=== PATIENT | female | born 1980 | race Caucasian/White ===

== ENCOUNTER 2024-05-28 19:13 | Emergency (ER) | payer MEDICAID, SELFPAY ==
[2024-05-28 19:15] VITALS: BP 117/90; PULSE 85; RESP 18; TEMP 36.6; O2SAT 99; BMI 53.1
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
[2024-05-28] MEDS: Ketorolac 15 MG/ML Vial IV (21:33)
[2024-05-28] MEDS: DiphenhydrAMINE 50 MG/ML Syringe 25 MG IV (21:33)
[2024-05-28] MEDS: Metoclopramide 10 MG/2 ML Vial 5 MG IV (21:34)
[2024-05-28 22:01] VITALS: BP 133/82; PULSE 71; RESP 16; TEMP 36.6; O2SAT 99
== END 2024-05-28 22:05 | disposition home or self-care (01) ==
PROVIDERS: Emergency Provider Surgery; Visit Provider Surgery
DX: R51.9 Headache, unspecified (principal); H10.11 Acute atopic conjunctivitis, right eye
CPT/HCPCS: 96374; 96375; 99282; A4216

== ENCOUNTER → 2024-06-04 | Outpatient (CLI) | payer MEDICAID, SELFPAY ==
--- NOTE | 2024-06-04 12:28 | ART_ITS ---
Reason For Study: Claudication Procedure A bilateral lower extremity continuous wave Doppler with analog waveform analysis and ankle brachial indexes. Left Segmental Pressures Left brachial= 126mmHg. Left posterior tibial artery = 154mmHg. Left dorsalis pedis artery = 149mmHg. Left digit = 112 mmHg. The left dorsalis pedis waveforms are triphasic. The left posterior tibial artery waveforms are triphasic. Right Segmental Pressures Right brachial= 130mmHg. Right posterior tibial artery = 159mmHg. Right dorsalis pedis artery = 154mmHg. Right digit = 140 mmHg. The right dorsalis pedis waveforms are triphasic. The right posterior tibial artery waveforms are triphasic. Indices The right ankle brachial index by the dorsalis pedis is 1.18. The right ankle brachial index by the posterior tibial artery is 1.22. The right digital-brachial index is 1.08. The left ankle brachial index by the dorsalis pedis is 1.15. The left ankle brachial index by the posterior tibial artery is 1.18. The left digital-brachial index is 0.86. VL/Ankle Brachial Index Interpretation Summary Triphasic Doppler waveforms are noted at ankle level bilaterally. Pulse-volume recordings appear satisfactory at ankle and digital level bilaterally. Resting ankle-brachial ind ices are normal bilaterally. Digital-brachial indices are normal bilaterally. There is no evidence of significant arterial occlusive disease in the lower ext remities bilaterally. Ordering Physician: CHELLE MARINO Performed By: Yesika Garcia RVT
== END | disposition home or self-care (01) ==
LOC: CVS 12:21
DX: I73.9 Peripheral vascular disease, unspecified (principal); R60.0 Localized edema
CPT/HCPCS: 93922

== ENCOUNTER 2024-07-04 13:05 | Emergency (ER) | payer MEDICAID, SELFPAY ==
[2024-07-04 13:06] VITALS: BP 132/79; PULSE 68; RESP 16; TEMP 36.5; O2SAT 97; BMI 53.1
--- NOTE | 2024-07-04 14:43 | EX.ED.DYSGE1 ---
HPI History of Present Illness Chief Complaint: Dizziness Detail of Chief Complaint: Dizziness, which patient defines as lightheadedness, fatigue and HPI narrat Informant: patient Onset/Context/Timing Onset: Days Context: Gradual Onset Timing: Continuous and Waxes and wanes Quality: Detailed narrative portion of the EMR Location: Generalized Current Severity: Mild Maximum Severity: Moderate Worsened by: Nothing specific Relieved by: Nothing Associated Symptoms Associated Symptoms: Fatigue, lack of energy Narrative Narrative: patient is a 44-year-old woman. She is presently residing at the [facility]. [place]. She states when asked that it is a long story and did not want to elaborate why she is now in [facility]. She states she is compliant with her medications which include levothyroxine and metformin. She is diabetic. Has not checked her blood sugar recently. She denies fever, chills night sweats. She denies headache. She denies double vision loss of vision question mild blurred vision. The blurred vision is by ocular. She denies ringing or ears decreased hearing. Denies trouble with speech or swallowing. She denies neck pain or neck stiffness. She denies chest pain, shortness of breath, orthopnea or PND. She denies abdominal pain, nausea, vomiting or diarrhea. She denies hematemesis, melena hematochezia. She denies dysuria, frequency, urgency or hematuria. She has no signs or symptoms of . Last menses 2 weeks ago. With respect to the dizziness she states it started after she was prescribed prednisone for her arthritis/knee pain. She did not define dizziness as spinning sensation or problems with coordination or balance. She states specifically it was lightheadedness. Prior similar symptoms: No Recent Illness/Hospitalization: No PFSH PFS Medical History Arthritis Scoliosis Hypercholesterolemia Hypothyroidism Diabetes Migraine Home Medications ?Medication ?Instructions ?Recorded ?Last Taken ?Type cholecalciferol (vitamin D3) 25 25 mcg PO QDAY 07/01/24 Unknown History mcg (1,000 unit) capsule levothyroxine 100 mcg tablet 100 mcg PO QDAY 07/01/24 Unknown History metformin 500 mg tablet 500 mg PO QDAY 07/01/24 Unknown History Allergy/AdvReac Type Severity Reaction Status Date / Time acetaminophen (From Vicodin) Allergy Mild Nausea Verified 07/04/24 13:06 hydrocodone (From Vicodin) Allergy Mild Nausea Verified 07/04/24 13:06 Sulfa (Sulfonamide Allergy Mild Rash Verified 07/04/24 13:06 Antibiotics) Family History Mother Scoliosis Other Cancer Heart disease Hypertension Surgical History Hx of cholecystectomy Social History housing: homeless Smoking Status: Never smoker alcohol intake: never what type of physical activity do you participate in: walking do you feel safe at home: No (sometimes) ROS ROS ED Constitutional Constitutional ED: Denies chills, fever(s), subjective, sweats or weight loss Eyes Eyes: Reports blurry vision bilateral; Denies change in vision or diplopia ENT ENT ED: Denies ear pain, rhinorrhea or sore throat Cardiovascular Cardiovascular: Denies chest pain, orthopnea, palpitations or paroxysmal nocturnal dyspnea Respiratory/Chest Respiratory/Chest: Denies cough, dyspnea, dyspnea on exertion, orthopnea or paroxysmal nocturnal dyspnea Gastrointestinal Gastrointestinal: Denies abdominal pain, diarrhea, melena, nausea or vomiting Genitourinary Genitourinary ED: Denies dysuria, hematuria or urinary frequency Musculoskeletal Musculoskeletal: Denies arthralgias, back pain, myalgias or neck pain Integumentary Denies abscess, Abrasions or rash Neurologic Neurologic: Denies headache(s), paresthesias or weakness Psychiatric Psychiatric: Denies anxiety or depression Hematologic/Lymphatic Hematologic/Lymphatic: Reports systems reviewed and no addt'l complaints, except as documented Allergic/Immunologic Allergic/Immunologic ED: Denies mouth swelling or tongue swelling EXAM Physical Exam Const Vital Signs: 07/04/24 13:06 07/04/24 15:05 07/04/24 15:05 Temperature 97.7 F L Temperature Source Oral Pulse Rate 68 65 Pulse Rate [Lying] 65 Pulse Rate [Sitting (for 1 minute prior to obtaining)] 70 Pulse Rate [Standing (for 1 minute prior to obtaining)] 79 Respiratory Rate 16 16 Blood Pressure 132/79 H 119/70 Blood Pressure [Lying] 119/70 Blood Pressure [Sitting (for 1 minute prior to obtaining)] 134/89 H Blood Pressure [Standing (for 1 minute prior to obtaining)] 149/99 H Blood Pressure Mean 96 86 Blood Pressure Mean [Lying] 86 Blood Pressure Mean [Sitting (for 1 minute prior to obtaining)] 104 Blood Pressure Mean [Standing (for 1 minute prior to obtaining)] 115 Pulse Ox 97 98 Oxygen Delivery Method Room Air Room Air Positive well nourished and well developed Constitutional Narrative: BMI is 53.1. General Appearance ED: well developed and NAD; Negative for cyanotic, diaphoretic or pallor HEENT Reports moist mucous membranes HEENT Narrative: Head is atraumatic normocephalic. Ears normal. External auditory canal normal. TMs normal. Nares patent without discharge. Posterior pharynx is normal. Eyes PERRL and EOMs intact bilaterally General Eye ED: Negative for pale conjunctiva or scleral icterus Neck no lymphadenopathy, supple and no JVD Chest Wall inspection of chest normal and palpation of chest normal Resp normal respiratory effort and clear to auscultation bilaterally Cardio regular rate, regular rhythm, S1 normal heart sound, S2 normal heart sound and no murmurs GI normal to inspection, nondistended, normoactive bowel sounds, non-tender, non-distended and no masses; Negative for hepatosplenomegaly Auscultation: normoactive bowel sounds Palpation: soft Back/Spine no CVA tenderness Extremity Negative for normal to inspection Extremity Narrative: There is no clubbing or cyanosis. General Extremety ED: Yes edema; Negative for tenderness General Extremity: edema Neuro oriented x3, CN's II-XII intact bilaterally and no sensory deficits noted Neuro Narrative: There is no clonus. Reflexes are symmetric. Sensorium / Orientation: alert Motor Exam: strength 5/5 throughout Psych Psych Narrative: Affect is flat. Mood is depressed. Skin no rashes or lesions noted, no wounds and skin turgor normal General Skin Exam: Negative for jaundice or pallor MDM MDM MDM Narrative Medical decision making narrative: Patient with vague symptoms. Since she is diabetic we will obtain BMP to assess glucose, CO2 anion gap and renal function. CBC was obtained to assess white count differential and H&H. Since she is hypothyroidism complaining of fatigue TSH was obtained as a screening test. Patient was placed on the monitor. Will order orthostatic symptoms since she complains of lightheadedness. Prior records are limited. Since she is not from this area. History & Record Review Additional record(s) reviewed:: Prior ED visit (Patient was seen for nonspecified headache May 28.) Lab Data Attestation: I reviewed the patient's lab results. Lab results narrative: CBC is unremarkable. Basic metabolic panel was a glucose of 142 with normal CO2 anion gap. Nitrites are normal. Renal function is normal. TSH is lower end of normal. Patient was informed the cause of her symptoms is unknown. Her orthostatic vital signs were negative. Labs: Laboratory Results - last 24 hr 07/04/24 14:25 WBC 7.6 RBC 4.61 Hgb 13.8 Hct 42.5 MCV 92.2 MCH 29.9 MCHC 32.5 RDW Std Deviation 51.3 H RDW Coeff of Demetrio 15.2 H Plt Count 283 MPV 10.0 Immature Gran % (Auto) 0.500 Neut % (Auto) 85.2 H Lymph % (Auto) 11.4 L [place] % (Auto) 1.7 Eos % (Auto) 0.9 Baso % (Auto) 0.3 Absolute Neuts (auto) 6.4 Absolute Lymphs (auto) 0.86 Nucleated RBC % 0 Sodium 138 Potassium 4.2 Chloride 104 Carbon Dioxide 28.0 Anion Gap 6 BUN 12 Creatinine 0.95 Estim Creat Clear Calc 82.99 Est GFR (MDRD) Af Amer 82 Est GFR (MDRD) Non-Af 68 BUN/Creatinine Ratio 12.6 Glucose 142 H Calcium 9.8 TSH 1.280 Treatment and Re-Evaluation :: Workup is negative. Her symptoms may be due to the fact that she is depressed. At this point patient be discharged to home with appropriate home-going instructions. In my opinion no further testing is needed. Discharge Plan Triage Chief Complaint: Dizziness ED Provider: Richy Contreras Dx/Rx/DC Orders Clinical Impression: Orthostatic lightheadedness, Hypothyroidism, Hypercholesterolemia, Controlled type 2 diabetes mellitus with hyperglycemia, Fatigue, Body mass index (BMI) greater than 50 Instructions: ED Weakness (Uncertain Cause) Prescriptions: No Action metformin 500 mg tablet 500 mg PO QDAY levothyroxine 100 mcg tablet 100 mcg PO QDAY cholecalciferol (vitamin D3) 25 mcg (1,000 unit) capsule 25 mcg PO QDAY Primary Care Provider: Care Physician,No Primary Referrals: Care Physician,No Primary [Primary Care Provider] - Activity Restrictions/Additional Instructions: The cause of your symptoms is unknown. Recommend contacting the [facility] in clinic for follow-up Print Language: Azeri Disposition Disposition: Home, Self Care
[2024-07-04 14:46] LABS: Absolute Lymphocyte Count 0.86 X10^3/uL (0.83-4.51); Absolute Neutrophil Count 6.4 X10^3/uL (2.0-7.7); Basophil# 0.02 X10^3/uL; Basophil% 0.3 % (0-1); Eosinophil# 0.07 X10^3/uL; Eosinophils% 0.9 % (0-5); Hematocrit 42.5 % (37-47); Hemoglobin 13.8 g/dL (12.0-15.0); Lymphocyte # 0.86 X10^3/ul (0.83-4.51); Lymphocyte % 11.4 % (19-41); Mean Corp Hgb Conc 32.5 g/dL (32-36); Mean Corpuscular Hgb 29.9 pg (27.0-32.0); Mean Corpuscular Volume 92.2 fL (81-99); Monocyte# 0.13 X10^3/uL; Monocyte% 1.7 % (0-10); NRBC Flagged by Analyzer 0 % (0-5); Neutrophil # 6.44 X10^3/uL (2.7-7.7); Neutrophil % 85.2 % (47-70); Platelet Count 283 K/mm3 (150-450); RBC Distribution Width CV 15.2 % (11.6-14.6); RBC Distribution Width SD 51.3 fl (35.1-43.9); Red Blood Count 4.61 M/mm3 (4.2-5.4); White Blood Count 7.6 K/mm3 (4.4-11.0)
[2024-07-04 15:05] VITALS: BP 119/70; BP 134/89; BP 149/99; PULSE 65; PULSE 70; PULSE 79; RESP 16; O2SAT 98
[2024-07-04 15:14] LABS: Anion Gap 6 (5-15); BUN 12 mg/dL (7-18); BUN/Creat Ratio 12.6 RATIO (10-20); Calcium,Total 9.8 mg/dL (8.5-10.1); Chloride 104 mmol/L (98-107); Creatinine, Serum 0.95 mg/dL (0.55-1.02); EST Glomerular Filtration Rate 68 mL/min (>60); Est Glom Filt Rate - Afr Amer 82 mL/min (>60); Estimated Creatinine Clearance 82.99 ml/min; Glucose 142 mg/dL (74-106); Potassium 4.2 mmol/L (3.5-5.1); Sodium Level 138 mmol/L (136-145)
[2024-07-04 16:52] VITALS: BP 129/57; PULSE 84; RESP 15; TEMP 36.2; O2SAT 98
== END 2024-07-04 16:52 | disposition home or self-care (01) ==
PROVIDERS: Emergency Provider Emergency Medicine; Visit Provider Emergency Medicine
DX: R42 Dizziness and giddiness (principal); E11.65 Type 2 diabetes mellitus with hyperglycemia; E78.00 Pure hypercholesterolemia, unspecified; Z79.890 Hormone replacement therapy; E03.9 Hypothyroidism, unspecified; R53.83 Other fatigue; Z79.84 Long term (current) use of oral hypoglycemic drugs; Z79.899 Other long term (current) drug therapy; Z90.49 Acquired absence of other specified parts of digestive tract
CPT/HCPCS: 80048; 84443; 85025; 99285; A4216

== ENCOUNTER 2024-07-12 00:16 | Emergency (ER) | payer MEDICAID, SELFPAY ==
[2024-07-12] VITALS (12 sets, daily range): BP systolic 109–139; BP diastolic 69–84; PULSE 58–77; RESP 11–17; TEMP 36.7; O2SAT 96–100; BMI 53.7
--- NOTE | 2024-07-12 00:29 | EKG12_ITS ---
Test Reason : CP Blood Pressure : */* mmHG Vent. Rate : 65 BPM Atrial Rate : 65 BPM P-R Int : 154 ms QRS Dur : 92 ms QT Int : 404 ms P-R-T Axes : 38 10 24 degrees QTcB Int : 420 ms Normal sinus rhythm Cannot rule out Anterior infarct , age undetermined Abnormal ECG Confirmed by ALIX WEEMS ([id number]), photo editor QUINTON MERINO ([id number]) on 07/12/2024 11:49:56 AM Referred By: MADI Confirmed By: ALIX WEEMS
[2024-07-12] MEDS: Aspirin 81 MG TAB.CHEW 324 MG PO (00:39)
--- NOTE | 2024-07-12 00:39 | EDS_ITS ---
HPI History of Present Illness Chief Complaint: Chest Pain Narrative Narrative: Chief complaint and HPI: Chest pain. 44-year-old female with history of DM, hypothyroidism, HLD presents for evaluation of chest pain. Patient states that she is currently residing at the [facility]. She states after eating supper today her acid reflux started to act up in which she took medication for this. She states when she went to lay down to go to sleep she developed chest pain. She describes it as sharp as well as tight. She states that it was intermittent in nature but given that it did not improve she went to the office and was concerned it was her acid reflux. They called EMS patient states she is still having some mild chest tightness. She states that her pain has improved. She was not given anything by EMS. Patient denies tobacco abuse. She denies any fever, chills, URI symptoms, cough, shortness of breath, abdominal pain, nausea, vomiting, diarrhea. Patient states that she sort of feels similar to her acid reflux. Review of systems: See HPI Medications: As listed on the chart Allergies: As listed on the chart PFSH: Per chart Vital signs: As listed on the chart. Reviewed. Physical exam: Gen: A&O x3, NAD Head: Normocephalic, atraumatic Eyes: No sclera icterus, conjunctiva clear ENT: Moist mucous membranes Neck: Trachea midline, No JVD CV: RRR, no murmurs, no peripheral edema Resp: Lungs CTA BL, no w/r/c GI: Abd soft, non-distended, non-tender, no r/r/g Musc: Full ROM, no deformity Skin: Warm, dry Neuro: Alert, oriented, grossly intact, sensation intact Psych: Cooperative, appropriate mood and affect [facility] Medical History Arthritis Scoliosis Hypercholesterolemia Hypothyroidism Diabetes Migraine Home Medications ?Medication ?Instructions ?Recorded ?Last Taken ?Type levothyroxine 100 mcg tablet 100 mcg PO QDAY 07/01/24 Unknown History metformin 500 mg tablet 500 mg PO QDAY 07/01/24 Unknown History atorvastatin 40 mg tablet 40 mg PO DAILY 07/12/24 Unknown History omega 6-ldg-sry-fish oil 100 2 cap PO DAILY 07/12/24 Unknown History mg-160 mg-1,000 mg capsule (Fish Oil) Allergy/AdvReac Type Severity Reaction Status Date / Time acetaminophen (From Vicodin) Allergy Mild Nausea Verified 07/12/24 00:17 hydrocodone (From Vicodin) Allergy Mild Nausea Verified 07/12/24 00:17 Sulfa (Sulfonamide Allergy Mild Rash Verified 07/12/24 00:17 Antibiotics) Family History Mother Scoliosis Other Cancer Heart disease Hypertension Surgical History Hx of cholecystectomy Social History housing: homeless Smoking Status: Never smoker alcohol intake: never what type of physical activity do you participate in: walking do you feel safe at home: No (sometimes) EXAM Physical Exam Const Vital Signs: 07/12/24 00:17 07/12/24 00:20 07/12/24 00:30 Temperature 98.1 F Temperature Source Oral Pulse Rate 77 74 Respiratory Rate 17 11 L Respiratory Effort Normal Blood Pressure 139/84 H Blood Pressure Mean 102 Pulse Ox 98 Oxygen Delivery Method Room Air 07/12/24 00:35 07/12/24 00:45 07/12/24 01:17 Temperature Temperature Source Pulse Rate 73 66 Respiratory Rate 14 15 Respiratory Effort Blood Pressure 122/70 H Blood Pressure Mean 87 Pulse Ox 98 Oxygen Delivery Method Room Air Room Air 07/12/24 01:49 07/12/24 01:50 07/12/24 02:00 Temperature Temperature Source Pulse Rate 69 58 L Respiratory Rate 16 14 Respiratory Effort Blood Pressure 122/70 H 119/78 Blood Pressure Mean 87 90 Pulse Ox 99 100 96 Oxygen Delivery Method 07/12/24 02:15 07/12/24 02:30 07/12/24 02:45 Temperature Temperature Source Pulse Rate 60 63 65 Respiratory Rate 15 15 15 Respiratory Effort Blood Pressure 113/76 109/69 128/76 H Blood Pressure Mean 88 82 92 Pulse Ox 98 98 98 Oxygen Delivery Method 07/12/24 03:00 07/12/24 03:21 Temperature 98.0 F Temperature Source Pulse Rate 64 68 Respiratory Rate 16 17 Respiratory Effort Blood Pressure 129/78 H 127/79 H Blood Pressure Mean 92 95 Pulse Ox 98 98 Oxygen Delivery Method MDM MDM MDM Narrative Medical decision making narrative: 44-year-old female with history of DM, hypothyroidism, HLD presents for evalu ation of chest pain. Differential diagnosis includes but is not limited to arrhythmia, electrolyte abnormality, pleurisy, musculoskeletal pain, ACS. Less likely PE. Cardiac workup ordered. Aspirin given for pain. EKG and chest x- ray reviewed see below. CBC without leukocytosis or anemia. D-dimer unremarkable. BMP unremarkable. Troponin unremarkable x 2. Heart score is a 2 which places the patient at low risk. On reevaluation, patient is no longer having chest pain. Patient is stable to discharge home. Return precautions explained. Follow-up with PCP. EKG: Interpreted by me/EM physician: EKG shows normal sinus rhythm without acute ischemic changes. Heart rate 65. Diagnostic: Interpreted by me/EM physician: Chest x-ray without pneumonia, effusion, cardiomegaly, pneumothorax Impression: 1. Chest pain Lab Data Labs: Laboratory Results - last 24 hr 07/12/24 07/12/24 00:23 02:45 WBC 7.4 RBC 4.29 Hgb 12.7 Hct 39.9 MCV 93.0 MCH 29.6 MCHC 31.8 L RDW Std Deviation 51.5 H RDW Coeff of Demetrio 15.1 H Plt Count 330 MPV 9.8 Immature Gran % (Auto) 0.800 Neut % (Auto) 61.5 Lymph % (Auto) 24.4 [place] % (Auto) 8.5 Eos % (Auto) 4.5 Baso % (Auto) 0.3 Absolute Neuts (auto) 4.5 Absolute Lymphs (auto) 1.80 Nucleated RBC % 0 D-Dimer Quant (PE/DVT) 0.31 Sodium 140 Potassium 3.8 Chloride 105 Carbon Dioxide 29.0 Anion Gap 6 BUN 15 Creatinine 0.86 Estim Creat Clear Calc 92.36 Est GFR (MDRD) Af Amer 92 Est GFR (MDRD) Non-Af 76 BUN/Creatinine Ratio 17.4 Glucose 113 H Calcium 9.7 Troponin I High Sens 3 < 3 L Radiography Diagnostic Testing: Clinical Impression(s) from Imaging Studies Chest X-Ray 07/12/24 01:00 IMPRESSION: No radiographic evidence of acute cardiopulmonary disease. Electronically Signed: Butch Hdz MD at 1:46 EST , Discharge Plan Triage Chief Complaint: Chest Pain ED Provider: Héctor Danielle Dx/Rx/DC Orders Clinical Impression: Chest pain Instructions: Chest Pain [facility] Prescriptions: No Action metformin 500 mg tablet 500 mg PO QDAY levothyroxine 100 mcg tablet 100 mcg PO QDAY atorvastatin 40 mg tablet 40 mg PO DAILY Fish Oil 100-160-1,000 mg capsule 2 cap PO DAILY Primary Care Provider: Care Physician,No Primary Referrals: Shashi Baltazar MD [Med Staff - Active Staff] - 3-5 Days Care Physician,No Primary [Primary Care Provider] - Activity Restrictions/Additional Instructions: Return back to the ED if symptoms change or worsen. Follow-up with the physician provided. Print Language: Albanian Disposition Disposition: Home, Self Care Discharge Date/Time: 07/12/24 03:21
[2024-07-12 00:40] LABS: Absolute Neutrophil Count 4.5 X10^3/uL (2.0-7.7); Basophil# 0.02 X10^3/uL; Basophil% 0.3 % (0-1); Eosinophil# 0.33 X10^3/uL; Eosinophils% 4.5 % (0-5); Hematocrit 39.9 % (37-47); Hemoglobin 12.7 g/dL (12.0-15.0); Lymphocyte % 24.4 % (19-41); Mean Corp Hgb Conc 31.8 g/dL (32-36); Mean Corpuscular Hgb 29.6 pg (27.0-32.0); Mean Platelet Vol. 9.8 fl (6.2-12.0); Monocyte# 0.63 X10^3/uL; Monocyte% 8.5 % (0-10); NRBC Flagged by Analyzer 0 % (0-5); Neutrophil # 4.54 X10^3/uL (2.7-7.7); Neutrophil % 61.5 % (47-70); Platelet Count 330 K/mm3 (150-450); RBC Distribution Width CV 15.1 % (11.6-14.6); RBC Distribution Width SD 51.5 fl (35.1-43.9); Red Blood Count 4.29 M/mm3 (4.2-5.4); White Blood Count 7.4 K/mm3 (4.4-11.0)
[2024-07-12] MEDS: Famotidine 200 MG/20 ML MDV 20 MG in 0.9% Normal Saline (Pres. free 8 ML 300 MG IV (00:52)
[2024-07-12 00:53] LABS: D-Dimer Quantitative (DVT/PE) 0.31 FEU/ug/m (0.27-0.49)
[2024-07-12 00:58] LABS: Anion Gap 6 (5-15); BUN 15 mg/dL (7-18); BUN/Creat Ratio 17.4 RATIO (10-20); Calcium,Total 9.7 mg/dL (8.5-10.1); Chloride 105 mmol/L (98-107); Creatinine, Serum 0.86 mg/dL (0.55-1.02); EST Glomerular Filtration Rate 76 mL/min (>60); Est Glom Filt Rate - Afr Amer 92 mL/min (>60); Estimated Creatinine Clearance 92.36 ml/min; Glucose 113 mg/dL (74-106); Potassium 3.8 mmol/L (3.5-5.1); Sodium Level 140 mmol/L (136-145); Troponin-I HS (w/2H Reflex) 3 pg/mL (3.0-54.0)
--- NOTE | 2024-07-12 01:00 | RAD_ITS ---
EXAM: XR CHEST, 2 VIEWS CLINICAL INDICATION: chest pain TECHNIQUE: Frontal and lateral views of the chest. COMPARISON: No relevant prior studies available. FINDINGS: LUNGS AND PLEURAL SPACES: Unremarkable. No consolidation or edema. No pneumothorax. No effusion. HEART: Unremarkable. Cardiac silhouette not enlarged. MEDIASTINUM: Central airways and mediastinal contour are unremarkable. BONES/JOINTS: Unremarkable. No acute fracture. SOFT TISSUES: Unremarkable. RAD/Chest PA and Lateral IMPRESSION: No radiographic evidence of acute cardiopulmonary disease. Electronically Signed: Butch Hdz MD at 1:46 EST ,
[2024-07-12 02:34] LABS: Reflex Troponin-HS? (from REC) Y
[2024-07-12 03:06] LABS: Troponin-I HS < 3 pg/mL (3.0-54.0)
== END 2024-07-12 03:21 | disposition home or self-care (01) ==
PROVIDERS: Emergency Provider Surgery; Visit Provider Surgery
DX: R07.9 Chest pain, unspecified (principal); E11.9 Type 2 diabetes mellitus without complications; K21.9 Gastro-esophageal reflux disease without esophagitis; E78.00 Pure hypercholesterolemia, unspecified; E03.9 Hypothyroidism, unspecified; Z90.49 Acquired absence of other specified parts of digestive tract
CPT/HCPCS: 71046; 80048; 84484; 85025; 85379; 93005; 96374; 99285; A4216; J3490

== ENCOUNTER 2024-12-12 10:03 | Emergency (ER) | payer MEDICAID, SELFPAY ==
[2024-12-12 10:04] VITALS: BP 110/78; PULSE 76; RESP 18; TEMP 36.6; O2SAT 99; BMI 54.1
--- NOTE | 2024-12-12 10:14 | EX.ED.DYSGE1 ---
HPI History of Present Illness Chief Complaint: Back Narrative Narrative: Patient is a 44-year-old female with past medical history of scoliosis, hypercholesteremia, hypothyroidism, diabetes, migraines, chronic back pain who presented to the emerged part with a chief complaint of back pain. Patient states that she is in pain management and went to physical therapy few days ago and notes that during her exercises her back started hurting her more. She states that she feels like the exercises exacerbate her pain. States that she is on some medications for her back pain but cannot specifically tell me what she is taking for this. Patient denies any new injuries or trauma. Patient denies any history of IV drug use, smoking or alcohol use. Patient states that she has been urinating more frequently with some pain with urination and notes that she is having normal bowel movements. Patient states that her back pain is on the right side and radiates down the back of her leg into her foot. [facility] Medical History Arthritis Scoliosis Hypercholesterolemia Hypothyroidism Diabetes Migraine Home Medications ?Medication ?Instructions ?Recorded ?Last Taken ?Type levothyroxine 100 mcg tablet 100 mcg PO QDAY 07/01/24 Unknown History metformin 500 mg tablet 500 mg PO QDAY 07/01/24 Unknown History atorvastatin 40 mg tablet 40 mg PO DAILY 07/12/24 Unknown History omega 0-nqx-blu-fish oil 100 2 cap PO DAILY 07/12/24 Unknown History mg-160 mg-1,000 mg capsule (Fish Oil) cephalexin 500 mg capsule 500 mg PO BID 5 days #10 caps 12/12/24 Unknown Rx cyclobenzaprine 5 mg tablet 5 mg PO TID PRN muscle spasm #9 12/12/24 Unknown Rx tabs ondansetron 4 mg disintegrating 4 mg PO Q6H PRN nausea and 12/12/24 Unknown Rx tablet vomiting #20 tabs oxycodone-acetaminophen 5 mg-325 1 tab PO Q6H PRN pain 2 days #8 12/12/24 Unknown Rx mg tablet (Endocet) tabs prednisone 5 mg tablets in a dose See Rx Instructions PO .COMPLEX 12/12/24 Unknown Rx pack #21 tabs Allergy/AdvReac Type Severity Reaction Status Date / Time acetaminophen (From Vicodin) Allergy Mild Nausea Verified 12/12/24 10:06 hydrocodone (From Vicodin) Allergy Mild Nausea Verified 12/12/24 10:06 Sulfa (Sulfonamide Allergy Mild Rash Verified 12/12/24 10:06 Antibiotics) Family History Mother Scoliosis Other Cancer Heart disease Hypertension Surgical History Hx of cholecystectomy Social History housing: homeless Smoking Status: Never smoker alcohol intake: never what type of physical activity do you participate in: walking do you feel safe at home: No (sometimes) ROS ROS ED ROS Narrative Constitutional: Denies fevers, chills, headaches Cardiovascular: Denies chest pain Respiratory: Denies shortness of breath Abdomen: Denies abdominal pain nausea, vomiting, diarrhea : Complains of urinary symptoms as noted above denies any hematuria Neurological: Denies numbness, weakness, tingling Musculoskeletal: Complains of back pain as noted above Skin: Denies any rashes or lesions EXAM Physical Exam Narrative Exam Narrative: General: Patient was lying in bed rest comfortably did not appear to be in acute distress Head: Atraumatic, normocephalic Eyes: PERRL bilaterally, EOMI bilaterally, no conjunctival injection noted Neck: Soft, supple, trachea midline Cardiovascular: Regular rate and rhythm Abdomen: Soft, nondistended Extremities: +4/5 strength noted in the bilateral upper and lower extremities, no pedal edema on exam Neurological: Patient following commands knew that she was at [facility] year is 2024 no saddle anesthesia noted Skin: Warm, dry, intact no rashes lesions noted Const Vital Signs: 12/12/24 10:04 Temperature 97.9 F Temperature Source Oral Pulse Rate 76 Respiratory Rate 18 Blood Pressure 110/78 Blood Pressure Mean 88 Pulse Ox 99 Oxygen Delivery Method Room Air MDM MDM MDM Narrative Medical decision making narrative: Patient is a 44-year-old female who presented to the emergency department chief complaint of flare of her chronic back pain. On the differential diagnose includes but not limited to herniated disc, musculoskeletal strain, flare of her chronic back pain, UTI, pyelonephritis. Once workup is obtained and reviewed she will be reevaluated. Patient be given Toradol, Valium, prednisone. Reevaluation patient she is still having pain therefore she was given [place] and Zofran. Patient's urinalysis reviewed and showed 100 leukocyte esterase 5-10 white blood cells with no bacteria seen however she is having urinary frequency with symptoms we will treat her with Keflex and this was sent for culture for her to follow-up on as well. Patient ambulated here in the emergency department to the bathroom by herself several times. On reevaluation the patient she is feeling better now and would like to go home. She was given prescription for cyclobenzaprine, Endocet, Zofran and prednisone. She is advised to rotate Tylenol and I Profen [id number] as well and use the narcotic for severe pain. She is advised not operating thing in the influence of the narcotic. She is advised to follow-up with her primary care physician in the outpatient setting as well and return with worsening symptoms or concerns. She is agreeable to plan all course concerns answered she was discharged home in stable condition. Lab Data Labs: Laboratory Results - last 24 hr 12/12/24 11:11 Urine Color Yellow Urine Clarity Clear Urine pH 8.0 Ur Specific [place] 1.010 Urine Protein Negative Urine Glucose (UA) Normal Urine Ketones Negative Urine Occult Blood Negative Urine Nitrite Negative Urine Bilirubin Negative Urine Urobilinogen Normal Ur Leukocyte Esterase 100 H Urine RBC 0 SEEN Urine WBC 5-10 SEEN Ur Squamous Epith Cells 5-10 SEEN Urine Bacteria 0 SEEN Urine Mucus 0 SEEN Discharge Plan Triage Chief Complaint: Back ED Provider: Tha Causey Dx/Rx/DC Orders Clinical Impression: Back pain Prescriptions: New cyclobenzaprine 5 mg tablet 5 mg PO TID PRN (Reason: muscle spasm) Qty: 9 0RF ondansetron 4 mg tablet,disintegrating 4 mg PO Q6H PRN (Reason: nausea and vomiting) Qty: 20 0RF oxycodone-acetaminophen [Endocet] 5-325 mg tablet 1 tab PO Q6H PRN (Reason: pain) 2 Days Qty: 8 0RF prednisone 5 mg tablets,dose pack See Rx Instructions .ROUTE .COMPLEX Qty: 21 0RF Rx Instructions: orally per package directions cephalexin 500 mg capsule 500 mg PO BID 5 Days Qty: 10 0RF No Action metformin 500 mg tablet 500 mg PO QDAY levothyroxine 100 mcg tablet 100 mcg PO QDAY atorvastatin 40 mg tablet 40 mg PO DAILY Fish Oil 100-160-1,000 mg capsule 2 cap PO DAILY Primary Care Provider: Care Physician,No Primary Referrals: Care Physician,No Primary [Primary Care Provider] - Liz Gates, HE[facility]ER-[facility] [[facility]] - Activity Restrictions/Additional Instructions: Rotate Tylenol and ibuprofen [id number] when you do this he can take something every 3 hours max dose Tylenol 4000 mg max dose of ibuprofen 3200 mg in 24 hours. Use the Percocet for severe pain do not operate anything under the influence this medication as this will make you sleepy and drowsy use Zofran with this as this will make you nauseous as well. Return with worsening symptoms or concerns. Take antibiotics as prescribed and follow-up and urine culture with your doctor. Print Language: Emirati Disposition Disposition: Home, Self Care
[2024-12-12] MEDS: diazePAM 5 MG Tablet 2.5 MG PO (10:31)
[2024-12-12] MEDS: Ketorolac 30 MG/ML Syringe IM (10:32)
[2024-12-12] MEDS: predniSONE 20 MG Tablet 40 MG PO (10:32)
[2024-12-12 11:19] LABS: Bacteria 0 SEEN /hpf (None Seen); Mucous, Urine 0 SEEN /hpf (<or=2+); Red Blood Cells-Urine 0 SEEN /hpf (0-5)
[2024-12-12 11:23] LABS: Color, Urine Yellow (Yellow); Glucose, Dipstick Normal (Normal); Ketone-Dipstick Negative (Negative); Leukocyte Esterase-Dipstick 100 /ul (Negative); Nitrite-Dipstick Negative (Negative); Occult Blood-Urine Negative /ul (Negative); Protein-Dipstick Negative (Negative); Urine Bilirubin Dipstick Negative (Negative); Urine Clarity Clear (Clear); Urine Urobilinogen Normal (Normal)
[2024-12-12 11:33] LABS: White Blood Cells 5-10 SEEN /hpf (0-5)
[2024-12-12 11:34] LABS: Squamous Epithelial Cells - UA 5-10 SEEN /hpf (5-10)
[2024-12-12] MEDS: HYDROcodone Bitartrate/Apap 5/325 Tablet PO (12:50)
[2024-12-12] MEDS: Ondansetron ODT 4 MG Tablet PO (12:50)
[2024-12-12 13:09] VITALS: BP 110/78; PULSE 76; RESP 18; TEMP 36.6; O2SAT 99
== END 2024-12-12 13:13 | disposition home or self-care (01) ==
PROVIDERS: Emergency Provider Emergency Medicine; Visit Provider Emergency Medicine
DX: M54.9 Dorsalgia, unspecified (principal); E11.9 Type 2 diabetes mellitus without complications; G89.29 Other chronic pain; E78.00 Pure hypercholesterolemia, unspecified; R35.0 Frequency of micturition; E03.9 Hypothyroidism, unspecified; Z79.899 Other long term (current) drug therapy; Z79.84 Long term (current) use of oral hypoglycemic drugs; Z90.49 Acquired absence of other specified parts of digestive tract; X58.XXXA Exposure to other specified factors, initial encounter; Y93.89 Activity, other specified
CPT/HCPCS: 81001; 87086; 87088; 96372; 99284

== ENCOUNTER 2025-04-04 13:17 | Emergency (ER) | payer MEDICAID, SELFPAY ==
[2025-04-04 13:18] VITALS: BP 122/84; PULSE 93; RESP 16; TEMP 36.8; O2SAT 97
[2025-04-04 14:08] VITALS: BP 109/71; BP 112/72; BP 113/74; PULSE 75; PULSE 82; PULSE 90
[2025-04-04] MEDS: 0.9% Normal Saline (1000mL) 1,000 ML 1000 ML IV (14:22)
[2025-04-04 14:24] VITALS: BMI 52.1
[2025-04-04 15:17] VITALS: BP 129/79; PULSE 75; RESP 18; O2SAT 100
[2025-04-04 15:23] LABS: Anion Gap 13 (5-15); BUN 13 mg/dL (4-19); BUN/Creat Ratio 14.3 RATIO (10-20); Calcium,Total 9.9 mg/dL (7.6-11.0); Carbon Dioxide 22.4 mmol/L (21.0-32.0); Chloride 104 mmol/L (98-108); Estimated Creatinine Clearance 85.66 ml/min (50-250); Glucose 103 mg/dL (70-99); Potassium 3.9 mmol/L (3.3-5.1)
--- NOTE | 2025-04-04 15:47 | EDS_ITS ---
HPI History of Present Illness Chief Complaint: Nausea/Vomiting/Diarrhea Detail of Chief Complaint: Patient is here because she was walking outside in the hot heat because she Informant: patient Onset/Context/Timing Onset: Today and Days (Patient had nausea vomiting diarrhea due to presumed bad food on Monday.) Context: Sudden Onset Timing: Continuous Quality: Fatigue, headache, thirsty sweating Location: Walking outside in the hot humid weather Current Severity: Mild Maximum Severity: Severe Worsened by: Exposure to heat Relieved by: Transportation by EMS to the emergency room which is much cooler Associated Symptoms Associated Symptoms: She also complains of some cramping. Narrative Narrative: Patient is a 44-year-old woman. She has history of diabetes, hypothyroidism, hypercholesterolemia, scoliosis and osteoarthritis. On Monday she had diarrhea and vomiting due to eating something did not taste normal. This was short-lived. Today she went to walk to [employer] and got lost she said she walked [address] and then the other way and became fatigued with headache thirst and cramping in her muscles. She is not certain how long she was outside. She states she was sweating profusely. She denied chest pain or shortness of breath. She did complain nausea without vomiting or diarrhea. She has not urinated since this morning. She is on no psychotropic meds. Prior similar symptoms: No Recent Illness/Hospitalization: No [facility] Medical History Arthritis Scoliosis Hypercholesterolemia Hypothyroidism Diabetes Migraine Home Medications ?Medication ?Instructions ?Recorded ?Last Taken ?Type levothyroxine 100 mcg tablet 100 mcg PO QDAY 07/01/24 Unknown History metformin 500 mg tablet 500 mg PO QDAY 07/01/24 Unkn own History atorvastatin 40 mg tablet 40 mg PO DAILY 07/12/24 Unkn own History omega 0-abo-imo-fish oil 100 2 cap PO DAILY 07/12/24 U nknown History mg-160 mg-1,000 mg capsule (Fish Oil) cyclobenzaprine 5 mg tablet 5 mg PO TID PRN muscle spa sm #9 12/12/24 Unknown Rx tabs ondansetron 4 mg disintegrating 4 mg PO Q6H PRN nausea and 12/12/24 Unknown Rx tablet vomiting #20 tabs meloxicam 15 mg tablet 15 mg PO QDAY 02/19/25 Unkno wn History Allergy/AdvReac Type Severity Reaction Status Date / Time acetaminophen (From Vicodin) Allergy Mild Nausea Verified 04/04/25 13:19 hydrocodone (From Vicodin) Allergy Mild Nausea Verified 04/04/25 13:19 Sulfa (Sulfonamide Allergy Mild Rash Verified 04/04/25 13:19 Antibiotics) Family History Mother Scoliosis Other Cancer Heart disease Hypertension Surgical History Hx of cholecystectomy Social History housing: homeless Smoking Status: Former smoker alcohol intake: never what type of physical activity do you participate in: walking do you feel safe at home: No (sometimes) ROS ROS ED Constitutional Constitutional ED: Denies chills, fever(s) or subjective Eyes Eyes: Denies blurry vision or change in vision ENT ENT ED: Denies ear pain, rhinorrhea or sore throat Cardiovascular Cardiovascular: Denies chest pain or palpitations Respiratory/Chest Respiratory/Chest: Denies cough, dyspnea or dyspnea on exertion Gastrointestinal Gastrointestinal: Reports nausea; Denies abdominal pain, diarrhea or vomiting Genitourinary Genitourinary ED: Denies dysuria, hematuria or urinary frequency Musculoskeletal Musculoskeletal: Denies arthralgias or myalgias Integumentary Denies rash Neurologic Neurologic: Reports headache(s) and weakness; Denies paresthesias Hematologic/Lymphatic Hematologic/Lymphatic: Reports systems reviewed and no addt'l complaints, except as documented EXAM Physical Exam Const Vital Signs: 04/04/25 13:18 04/04/25 14:08 04/04/25 14:27 Temperature 98.3 F Temperature Source Oral Pulse Rate 93 Pulse Rate [Lying] 75 Pulse Rate [Sitting (for 1 minute prior to obtaining)] 82 Pulse Rate [Standing (for 1 minute prior to obtaining)] 90 Respiratory Rate 16 Respiratory Effort Normal Non-Labored Respiratory Pattern Normal Blood Pressure 122/84 H Blood Pressure [Lying] 109/71 Blood Pressure [Sitting (for 1 minute prior to obtaining)] 112/72 Blood Pressure [Standing (for 1 minute prior to obtaining)] 113/74 Blood Pressure Mean 96 Blood Pressure Mean [Lying] 83 Blood Pressure Mean [Sitting (for 1 minute prior to obtaining)] 85 Blood Pressure Mean [Standing (for 1 minute prior to obtaining)] 87 Pulse Ox 97 Oxygen Delivery Method Room Air Positive well nourished and well developed Constitutional Narrative: Orthostatic vital signs are normal. Patient's clothes are wet from perspiration. BMI is 52.1. General Appearance ED: well developed; Negative for pallor HEENT Reports dry mucous membranes HEENT Narrative: Head is atraumatic normocephalic. Ears normal. Nares patent. Mouth ED: Yes dry mucous membranes Mouth: dry mucous membranes Eyes PERRL and EOMs intact bilaterally General Eye ED: Negative for pale conjunctiva or scleral icterus Neck no lymphadenopathy and supple Resp normal respiratory effort and clear to auscultation bilaterally Cardio regular rate, regular rhythm, S1 normal heart sound, S2 normal heart sound and no murmurs GI normal to inspection, nondistended, normoactive bowel sounds, non-tender, non- distended and no masses; Negative for hepatosplenomegaly Back/Spine no CVA tenderness Extremity normal to inspection General Extremety ED: Negative for edema or tenderness General Extremity: Negative for edema Neuro oriented x3, CN's II-XII intact bilaterally and no sensory deficits noted Sensorium / Orientation: alert Motor Exam: strength 5/5 throughout Psych Psych Narrative: Flat affect. Skin no rashes or lesions noted, no wounds and No skin turgor normal General Skin Exam: Negative for jaundice or pallor MDM MDM MDM Narrative Medical decision making narrative: Patient may have had mild dehydration with nausea vomiting diarrhea on Monday. The fact that she is out in the hot weather sweating with cramps exhaustion headache suspect she has heat exhaustion. Clinically she is dehydrated. She was given 1 L of normal saline wide open. She reports feeling better. Urine appears slightly concentrated. Since patient is symptoms have improved with fluids will discharge to home. She was instructed to have the hot weather for the next 24 hours. Increase her fluid intake. BMP was obtained assess renal function and glucose CO2 anion gap especially in light of her history of diabetes and recent GI symptoms with now heat exhaustion. History & Record Review Additional record(s) reviewed:: Prior outpatient record (Orthopedic office visit by Dr. Tony Tolbert for osteoarthritis of both knees. Urgent care visit authored by Andrea Wells for cellulitis) and Prior ED visit (ER visit for chest pain by Dr. Héctor Hwang) Lab Data Attestation: I reviewed the patient's lab results. Labs: Laboratory Results - last 24 hr 04/04/25 14:33 Sodium 140 Potassium 3.9 Chloride 104 Carbon Dioxide 22.4 Anion Gap 13 BUN 13 Creatinine 0.91 Estim Creat Clear Calc 85.66 Est GFR (MDRD) Non-Af 80 BUN/Creatinine Ratio 14.3 Glucose 103 H Calcium 9.9 Discharge Plan Triage Chief Complaint: Nausea/Vomiting/Diarrhea Other Complaint: Fatigue ED Provider: Richy Contreras Dx/Rx/DC Orders Clinical Impression: Heat exhaustion, Morbid obesity due to excess calories, Dehydration, mild, Type 2 diabetes mellitus Instructions: ED Heat Exhaustion Prescriptions: No Action metformin 500 mg tablet 500 mg PO QDAY levothyroxine 100 mcg tablet 100 mcg PO QDAY meloxicam 15 mg tablet 15 mg PO QDAY cyclobenzaprine 5 mg tablet 5 mg PO TID PRN (Reason: muscle spasm) Qty: 9 0RF ondansetron 4 mg tablet,disintegrating 4 mg PO Q6H PRN (Reason: nausea and vomiting) Qty: 20 0RF atorvastatin 40 mg tablet 40 mg PO DAILY Fish Oil 100-160-1,000 mg capsule 2 cap PO DAILY Primary Care Provider: Natalie Lemus NP Referrals: Natalie Lemus DIRECTOR OF GLOBAL MARKETING, DIRECTOR OF GLOBAL MARKETING-C [Primary Care Provider] - As Needed Print Language: Sami Disposition Disposition: Home, Self Care
[2025-04-04 15:59] VITALS: BP 129/79; PULSE 75; RESP 18; TEMP 37.1; O2SAT 100
[2025-04-04 16:17] LABS: Color, Urine Yellow (Yellow); Glucose, Dipstick Normal (Normal); Ketone-Dipstick Negative (Negative); Leukocyte Esterase-Dipstick 100 /ul (Negative); Nitrite-Dipstick Negative (Negative); Occult Blood-Urine 10 /ul (Negative); Protein-Dipstick 30 mg/dl (Negative); Specific Gravity, Urine 1.025 (1.002-1.030)
[2025-04-04 16:20] LABS: Urine Bilirubin Dipstick 1 mg/dL (Negative)
--- OUTSIDE RECORDS SUMMARY | 2025-04-04 19:53 | XMS RPT_ITS | CCD ---
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 Name Role Phone No Family Physician Unavailable Unavailable No Family Physician Unavailable Unavailable No Family Physician Unavailable Unavailable No Family Physician Unavailable Unavailable Anupama Hernandes Unavailable Unavailable Gerber Wang Unavailable Unavailable Rima Dory Unavailable Unavailable Sánchez, Silvia Unavailable Unavailable Feng Carrera Unavailable Unavailable Sánchez, Silvia Unavailable Unavailable Sánchez, Silvia Unavailable Unavailable Unavailable Sánchez, Silvia Unavailable José Miguel Vásquez Unavailable Unavailable SánchezColten kaufmanSilvia Primary Care Provider Sánchez, Silvia Primary Care Provider [phone] Colten Sánchezriella Primary Care Provider Smooth Mack Unavailable [phone] Shawnee Dill Unavailable Unavailable Dr. Silvia Sánchez Primary Care Unavailable Dr. Smooth Mack Attending Elizabeth vailable PHYSICIAN, NONE Primary Care Physician Unavailab Mahogany Winchester S Unavailable Unavailable DAKOTA DUMONT Attending Unavailable PHYSICIAN, NONE Primary Care Unavailable Dr. Silvia Sánchez Primary Care Unavailable Gauri, Dr. Judson Santos Attending Unavailable Andrzej, Ms. Shawnee Sotomayor Referring Unavail able Andrzej, Ms. Shawnee Sotomayor Attending Unavail able Dr. Silvia Sánchez Primary Care Unavailable Andrzej, Ms. Shawnee Sotomayor Attending Unavail able Princess, Dr. Vega Primary Care Unavailable Dr. Silvia Sánchez Primary Care Unavailable Gauri, Dr. Judson Santos Referring Unavailable Gauri, Dr. Judson Santos Attending Unavailable Princess, Dr. Vega Primary Care Unavailable Andrzej, Ms. Shawnee Sotomayor Attending Unavail able Unavailable Primary Care Provider Unavailabl RYAN Vargas Attending Unavailab le JOHNATHAN PRINGLE Referring Unavailable NAMJOHNATHAN Referring Unavailable NAM, JOHNATHAN Fernández Referring Unavailable NAM, JOHNATHAN Fernández Referring Unavailable Unavailable Primary Care Provider Unavailabl REGAN Durand Attending Unavailable SÁNCHEZ, SILVIA Primary Care Unavailable INGRID BOBBY Attending Unavailable SÁNCHEZ, SILVIA Primary Care Unavailable SÁNCHEZ, SILVIA Primary Care Unavailable Racquel BULLET CASTING OPERATOR.Comfort IBARRA Primary Care Provider COMFORT CLEMENT Referring Unavailable COMFORT CLEMENT Primary Care Unavailable Care Physician, No Primary Primary Care Provider Unavailable Dr. Tha Causey DO Emergency Provider Dr. Tha Causey DO Attending Provider Care Physician, No Primary Referring Provider Un available Gael Abreu Attending Provider Dr. Tony Champion DO Attending Provider Dr. Diony Benton MD Attending Provider [phone] Care Physician, No Primary Primary Care Unava ilable Tony Champion Attending Unavailable Care Physician, No Primary Referring Unava ilable Doiny Benton Attending Unavailable Care Physician, No Primary Primary Care Unava ilable Diony Benton Attending Unavailable Care Physician, No Primary Primary Care Unava ilable Care Physician, No Primary Referring Unava ilable Tony Champion Attending Unavailable Care Physician, No Primary Primary Care Unava ilable Care Physician, No Primary Referring Unava ilable Care Physician, No Primary Primary Care Unava ilable Gael Abreu Attending Unavailable Tony Champion Attending Unavailable Care Physician, No Primary Primary Care Unava ilable BARJO, MARILYN Primary Care Unavailable BARSYLVAIN MARILYN Attending Unavailable BARJO, MARILYN Referring Unavailable Contreras, Richy Attending Unavailable Care Physician, No Primary Primary Care Unava ilable Care Physician, No Primary Primary Care Unava ilable Héctor Danielle Attending Unavailabl e Care Physician, No Primary Primary Care Unava ilable Tha Causey Attending Unavailable Care Physician, No Primary Primary Care Unava ilable Héctor Danielle Attending Unavailabl e TRILL, COMFORT C Primary Care Unavailable ALEC ALEX Attending Unavailable SMOOTH REED Referring Unavailable TRILL, COMFORT C Referring Unavailable TRILL, COMFORT C Primary Care Unavailable TRILL, COMFOTR C Referring Unavailable TRILL, COMFORT C Primary Care Unavailable TRILL, COMFORT C Primary Care Unavailable TRILL, COMFORT C Referring Unavailable REGAN HERRERA Referring Unavailable TRILL, COMFORT C Primary Care Unavailable TRILL, COMFORT C Referring Unavailable TRILL, COMFORT C Primary Care Unavailable TRILL, COMFORT C Referring Unavailable TRILL, COMFORT C Primary Care Unavailable TRILL, COMFORT C Referring Unavailable TRILL, COMFORT C Primary Care Unavailable O'LIZ ZAVALA Attending Unavailable TRILL, COMFORT C Primary Care Unavailable KIMBERLY MAHONEY Attending Unavailable TRILL, COMFORT C Referring Unavailable TRILL, COMFORT C Primary Care Unavailable O'LUCASLIZ COREY Attending Unavailable TRILL, COMFORT C Referring Unavailable TRILL, COMFORT C Referring Unavailable TRILL, COMFORT C Primary Care Unavailable O'LUCASLIZ COREY Attending Unavailable TRILL, COMFORT C Referring Unavailable TRILL, COMFORT C Primary Care Unavailable O'LUCASLIZ COREY Attending Unavailable JULIO CÉSAR TRONCOSO Referring Unavailable TRILL, COMFORT C Attending Unavailable TRILL, COMFORT C Primary Care Unavailable TRILL, COMFORT C Primary Care Unavailable TRILL, COMFORT C Referring Unavailable TRILL, COMFORT C Attending Unavailable TRILL, COMFORT C Primary Care Unavailable TRILL, COMFORT C Referring Unavailable TRILL, COMFORT C Primary Care Unavailable TRILL, COMFORT C Referring Unavailable Ben MORALES, Dr. Lockhart Emergency Provider Racquel PROCESSING ARCHIVIST-Comfort Fernández Primary Care Provider Allergies Allergy Classification Reported Allergen(s) Allergy Type Date of Onset Reaction(s) Facility Acetaminophen / HYDROcodone (1 source) Acetaminophen / HYDROcodone; Translations: [Vicodin TABS] Drug Allergy Other [facility] [id number] M Work Phone: Opioid Agonists (1 source) HYDROcodone; Translations: [hydrocodone] Drug Allergy Other [facility] [place] [address] M Work Phone: (20 sources) Acetaminophen / HYDROcodone; Translations: [Vicodin TABS] Drug Allergy 09-24-19 10 Other: See Comments [facility] (18 sources) HYDROcodone; Translations: [hydrocodone] Drug Allergy 12-13-19 25 Other, Nausea [facility] (20 sources) Doxycycline; Translations: [DOXYCYCLINE] Drug Allergy 03-06-20 17 Rash, Hives, Other: See Comments [facility] Work Phone: (20 sources) Cephalexin; Translations: [CEPHALEXIN] Drug Allergy 12-10-19 22 Rash [facility] (20 sources) Sulfamethoxazole; Translations: [SULFAMETHOXAZOLE] Drug Allergy 12-10-19 GI Upset [facility] (20 sources) Adhesive Tape-Silicones; Translations: [ADHESIVE TAPE-SILICONES] Drug Allergy 12-10-19 22 Rash [facility] (20 sources) guaiFENesin / HYDROcodone Drug Allergy 03-14-20 24 Unknown [facility] (1 source) Sulfonamides (Antibiotic) Unknown [facility] (1 source) Cephalexin Drug Allergy [facility] (1 source) Sulfamethizole Drug Allergy [facility] (1 source) Adhesive Tape Drug allergy [facility] (20 sources) Sulfonamides (Antibiotic); Translations: [SULFA (SULFONAMIDE ANTIBIOTICS)] Drug Allergy 12-10-19 Hives, Other: See Comments, Unknown [facility] (5 sources) Acetaminophen / HYDROcodone; Translations: [HYDROCODONE-ACETA MINOPHEN] Drug Allergy 09-24-19 [facility] (20 sources) Adhesive Tape; Translations: [ADHESIVE TAPE (ROSINS)] Allergy to substance 03-14-20 24 Other: See Comments [facility] (4 sources) HYDROCODONE-GUAIFE NESIN; Translations: [HYDROCODONE-GUAIF ENESIN] Propensity to adverse reactions to drug (disorder) 03-14-20 [facility] Other [place] [facility] (6 sources) Acetaminophen Drug Allergy 12-13-19 25 Nausea [facility] (6 sources) Sulfonamides (Antibiotic) Allergy to substance 12-13-19 [facility] (1 source) Acetaminophen Drug Allergy 02-20-20 [facility] (1 source) Sulfonamides (Antibiotic) Drug allergy (disorder) 02-20-20 [facility] Repository Medications Current Medications Medication Drug Class(es) Dates Sig (Normalized) Sig (Original) acetaminophen 325 mg oral tablet (20 sources) Start: 10-02-2024 take 2 tablets by mouth every six hours as needed for pain acetaminophen (TYLENOL) 325 mg tablet Indications: Degeneration of intervertebral disc of lumbar region with discogenic back pain and lower extremity pain , Primary osteoarthritis of both knees Take 2 tablets by mouth every 6 hours as needed for pain or fever (specify temp.) (Fever of over 100.4). 90 tablet 5 10/02/2024 Active Start: 09-26-2024 End: 10-06-2024 take 1-2 tablets by mouth every six hours as needed for pain acetaminophen (TYLENOL) 325 mg tablet Indications: Sore throat Take 1-2 tablets by mouth every 6 hours as needed for pain or fever (specify temp.) for up to 10 days. 60 tablet 09/26/2024 10/02/2024 Discontinued [id number] 200 actuat albuterol 0.09 mg/actuat metered dose inhaler (20 sources) beta2-Adrenergic Agonist Start: 12-12-2023 End: 10-02-2024 take 2 puff(s) by inhalation every four hours as needed for wheezing albuterol HFA (PROVENTIL HFA, VENTOLIN HFA) 90 mcg/actuation inhaler Indications: Upper respiratory tract infection, unspecified type Inhale 2 Puffs as instructed every 4 hours as needed for wheezing/shortness of breath. 1 Each 5 10/02/2024 Active Start: 07-27-2023 take 2 puff(s) by in halation every four hours as needed for wheezing albuterol HFA (PROVENTIL HFA, VENTOLIN HFA) 90 mcg/actuation inhaler Inhale 2 Puffs as instructed every 4 hours as needed for wheezing/shortness of breath. 1 Each 0 07/27/2023 Active Comment on above: Inhale 2 Puffs as in structed every 4 hours as needed for wheezing/shortness of breath. atorvastatin 40 mg oral tablet (20 sources) HMG-CoA Reductase Inhibitor Start: End: take 1 tablet by mouth once daily Atorvastatin 40 mg tablet Active 40 mg PO DAILY July 12, 2024 1:00am End: 10-02-2024 atorvastatin calcium (LIPITO R ORAL) Take by mouth. 10/02/2024 Discontinued atorvastatin jagdeep cium (LIPITOR ORAL) Take by mouth. Active atorvastatin jagdeep cium (LIPITOR ORAL) Take by mouth. 0 Active cefdinir 300 mg oral capsule (1 source) Cephalosporin Antibacterial Start: 04-03-2024 End: 04-10-2024 take 1 capsule by mouth twice daily cefdinir (OMNICEF) 300 mg capsule Take 1 capsule by mouth two times a day for 7 days. 14 capsule 0 04/03/2024 04/10/2024 Active cholecalciferol 0.05 mg oral tablet (20 sources) Vitamin D Start: 10-10-2024 End: 10-10-2025 take 2 tablets by mouth once daily cholecalciferol (VITAMIN D-3) 50 mcg (2,000 unit) tablet Indications: Vitamin D deficiency Take 2 tablets by mouth once daily. 180 tablet 3 10/10/2024 10/10/2025 Active Start: 09-18-2024 End: 10-10-2024 take 1 capsule by mouth every week cholecalciferol, Vitamin D3, (VITAMIN D3) 1,250 mcg (50,000 unit) cap capsule Indications: Vitamin D deficiency Take 1 capsule by mouth one time a week. 12 capsule 1 10/02/2024 10/10/2024 Discontinued Start: 07-01-2024 End: 07-12-2024 take 1 capsule by mouth once daily Cholecalciferol (Vitamin D3) 25 mcg (1,000 unit) capsule Discontinued 25 ug PO daily July 01, 2024 1:00am July 12, 2024 1:23am End: 10-02-2024 Cholecalciferol, Vitamin D3, (D3-2000) 50 mcg (2,000 unit) cap Take by mouth. 10/02/2024 Discontinued Cholecalciferol, Vitamin D3, (D3-2000) 50 mcg (2,000 unit) cap Take by mouth. 0 Active Comment on above: Take by mouth. cyclobenzaprine hydrochloride 5 mg oral tablet (20 sources) Muscle Relaxant Start: 12-13-19 take 1 tablet by mouth three times daily as needed for muscle spasms Cyclobenzaprine 5 mg tablet Active 5 mg PO THREE TIMES A DAY as needed for muscle spasm 9 0 December 12, 2024 12:00am Start: 10-02-2024 take 1 tablet by silviano th twice daily as needed cyclobenzaprine (FLEXERIL) 5 mg tablet Indications: Degeneration of intervertebral disc of lumbar region with discogenic back pain and lower extremity pain Take 1 tablet by mouth two times a day as needed. 45 tablet 5 10/02/2024 Active Start: 07-02-2024 End: 09-26-2024 take 1 tablet by mouth every eight hours as needed cyclobenzaprine (FLEXERIL) 10 mg tablet Take 1 tablet by mouth three times a day as needed for muscle spasm. 12 tablet 07/02/2024 09/26/2024 Discontinued (Other) Start: 04-28-2021 take 1 tablet by silviano th three times daily as needed Cyclobenzaprine HCl - 10 MG Oral Tablet TAKE ONE TABLET BY MOUTH THREE TIMES A DAY NEEDED Quantity: 30 Refills: 0 Ordered: 28-Apr-2021 DO Start : 28-Apr-2021 Complete diphenhydrAMINE hydrochloride 25 mg oral capsule (13 sources) Histamine-1 Receptor Antagonist Start: 11-04-2024 End: 02-02-2025 take 1 capsule by mouth every six hours as needed diphenhydrAMINE (BENADRYL) 25 mg capsule Indications: Environmental allergies Take 1 capsule by mouth every 6 hours as needed for cold/allergy symptoms. 45 capsule 2 11/04/2024 02/02/2025 Active DULoxetine 30 mg delayed release oral capsule (15 sources) Serotonin and Norepinephrine Reuptake Inhibitor Start: 12-03-2024 End: 06-01-2025 take 1 capsule by mouth once daily DULoxetine (CYMBALTA) 30 mg capsule Indications: Chronic pain syndrome Take 1 capsule by mouth once daily. 90 capsule 1 12/03/2024 06/01/2025 Active levothyroxine sodium 0.1 mg oral tablet (20 sources) l-Thyroxine Start: 06-28-2023 levothyroxine 100 mcg (0.1 mg) oral tablet Dose : 100 mcg = 1 tab(s), Oral, qDay, 0 Refill(s) Start Date: 06/28/23 Status: Ordered Start: 02-19-2021 End: 03-31-2025 take 1 tablet by mouth once daily Levothyroxine 100 mcg tablet Active 100 ug PO daily July 01, 2024 1:00am Synthroid 100 MC G Oral Tablet Quantity: 0 Refills: 0 Ordered: 15-Apr-2016 DO Active Synthroid 100 MC G Oral Tablet Refills: 0 DO Active Comment on above: TAKE ONE TABLET BY M OUT ONCE DAILY Take 1 tablet by silviano th once daily. lidocaine 40 mg/ml topical cream (6 sources) Antiarrhythmic, Amide Local Anesthetic Start: 12-04-19 End: 01-03-20 lidocaine (LMX) 4 % cream Indications: Bilateral primary osteoarthritis of knee Apply to affected area three times a day as needed. 45 g 1 12/03/2024 01/02/2025 Active meclizine hydrochloride 25 mg chewable tablet (20 sources) Antiemetic Start: 09-23-19 take 1 tablet by mouth every eight hours as needed BONINE 25 mg chewable tablet(s) Take 25 mg by mouth three times a day as needed. 09/23/2024 Active meloxicam 15 mg oral tablet (20 sources) Nonsteroidal Anti-inflammatory Drug Start: 10-02-19 End: 08-23-19 take 1 tablet by mouth once daily Meloxicam 15 mg tablet Active 15 mg PO daily February 19, 2025 12:00am Start: 11-03-2023 End: 07-30-2024 take 1 tablet by mouth once daily meloxicam (MOBIC) 15 mg tablet Take 1 tablet by mouth once daily. 30 tablet 0 11/03/2023 12/03/2023 Active Comment on above: Take 1 tablet by silviano once daily. metFORMIN hydrochloride 500 mg oral tablet (20 sources) Biguanide Start: 07-01-2024 take 1 tablet by mouth once daily Metformin 500 mg tablet Active 500 mg PO daily July 01, 2024 1:00am Start: 06-28-2023 End: 08-23-2025 take 1 tablet by mouth twice daily metFORMIN (GLUCOPHAGE) 500 mg tablet Indications: Type 2 diabetes mellitus without complication, without long-term current use of insulin (HCC) Take 1 tablet by mouth two times a day. 180 tablet 1 02/24/2025 08/23/2025 Active Start: 12-09-2021 End: 03-14-2024 take 1 tablet by mouth twice daily at mealtime metFORMIN (GLUCOPHAGE) 1,000 mg tablet Indications: Impaired fasting glucose Take 1 tablet by mouth twice daily with meals. 180 tablet 3 12/09/2021 03/14/2024 Discontinued (Course of therapy completed) Start: 10-19-2021 End: 12-09-2021 take 1 tablet by mouth twice daily metFORMIN (GLUCOPHAGE) 500 mg tablet Indications: Acquired hypothyroidism , Prediabetes Take 1 tablet by mouth twice daily. 30 tablet 0 11/24/2021 12/09/2021 Discontinued metFORMIN HCl - 500 MG Oral Tablet Quantity: 0 Refills: 0 Ordered: 15-Apr-2016 DO Active metFORMIN HCl - 500 MG Oral Tablet Refills: 0 DO Active Comment on above: TAKE ONE TABLET BY M OUT TWO TIMES A DAY Take 1 tablet by silviano th twice daily. Take 1 tablet by silviano th twice daily with meals. [place] 7-Pkp-Wmp-Fish Oil (Fish Oil) 100-160-1,000 mg capsule (6 sources) Start: 07-12-2024 take 100-160 capsules by mouth once daily [place] 7-Ewn-Ein-Fish Oil (Fish Oil) 100-160-1,000 mg capsule Active 2 NMA PO DAILY July 12, 2024 1:00am omega-3 fatty acids/fish oil (FISH OIL-OMEGA-3 FATTY ACIDS) 300-1,000 mg cap (20 sources) Start: 10-16-2024 omega-3 fatty acids/fish oil (FISH OIL-OMEGA-3 FATTY ACIDS) 300-1,000 mg cap 10/16/2024 Active Start: 09-18-2024 End: 10-02-2024 omega-3 fatty acids/fish oil (FISH OIL-OMEGA-3 FATTY ACIDS) 300-1,000 mg cap 09/18/2024 10/02/2024 Discontinued Start: 09-18-2024 omega-3 fatty acids/fish oil (FISH OIL-OMEGA-3 FATTY ACIDS) 300-1,000 mg cap 09/18/2024 Active ondansetron 4 mg disintegrating oral tablet (6 sources) Serotonin-3 Receptor Antagonist Start: 12-12-2024 take 1 tablet by mouth every six hours as needed for nausea and vomiting Ondansetron 4 mg tablet,disintegrating Active 4 mg PO EVERY 6 HOURS as needed for nausea and vomiting December 12, 2024 12:00am triamcinolone acetonide 1 mg/ml topical cream (20 sources) Corticosteroid Start: 10-02-2024 End: 12-24-2024 triamcinolone acetonide (KENALOG) 0.1 % cream Indications: Hand dermatitis Apply to affected area two times a day as needed. 30 g 5 12/24/2024 Active Start: 04-28-2021 Triamcinolone Acetonide 0.1 % External Ointment APPLY A THIN LAYER TOPICALLY TO THE AFFECTED AREA(S) TWICE DAILY Quantity: 80 Refills: 0 Ordered: 28-Apr-2021 DO Start : 28-Apr-2021 Complete Start: 04-13-2017 triamcinolone acetonide (KENALOG) 0.1 % cream Indications: Allergic contact dermatitis, unspecified trigger Apply to affected area twice daily as needed when rash flares Mon to Mon, take weekends off. Do not use on face 80 g 2 04/13/2017 Active Comment on above: Apply to affected ar ea twice daily as needed when rash flares Mon to Mon, take weekends off. Do not use on face vitamin b12 0.5 mg oral tablet (20 sources) Vitamin B12 Start: 01-31-2011 End: 08-23-2025 take 1 tablet by mouth once daily cyanocobalamin (VITAMIN B-12) 500 mcg tablet Indications: Vitamin B12 deficiency Take 1 tablet by mouth once daily. 90 tablet 1 02/24/2025 08/23/2025 Active Comment on above: Take 1 tablet by silviano once daily. Completed/Discontinued Medications Medication Drug Class(es) Dates Sig (Normalized) Sig (Original) acetaminophen 300 mg / HYDROcodone bitartrate 5 mg oral tablet (2 sources) Opioid Agonist Start: 06-17-2021 End: 06-19-2021 take 1 tablet by mouth three times daily hydrocodone-acetam inophen 5 mg-300 mg oral tablet ; 1 tab(s) orally 3 times a day Quantity: 9 Refills: 0 Ordered: 17-Jun-2021 José Miguel Vásquez Start: 17-Jun-2021 End: 19-Jun-2021 Generic Substitution Allowed Comments: Caution federal law prohibits the transfer of this drug to any person other than the person for whom it was prescribed.Do not drink alcoholic beverages when taking this medication.May cause drowsiness. Alcohol may intensify this effect. Use care when operating dangerous machinery.This drug may impair the ability to drive or operate machinery. Use care until you become familiar with its effects.This product contains acetaminophen. Do not use with any other product containing acetaminophen to prevent possible liver damage.Using more of this medication than prescribed may cause serious breathing problems. Comment on above: Caution federal law prohibits the transfer of this drug to any person other than the person for whom it was prescribed.Do not drink alcoholic beverages when taking this medication.May cause drowsiness. Alcohol may intensify this effect. Use care when operating dangerous machinery.This drug may impair the ability to drive or operate machinery. Use care until you become familiar with its effects.This product contains acetaminophen. Do not use with any other product containing acetaminophen to prevent possible liver damage.Using more of this medication than prescribed may cause serious breathing problems. acetaminophen 325 mg / oxyCODONE hydrochloride 5 mg oral tablet (6 sources) Opioid Agonist Start: 12-12-2024 End: 02-19-2025 Oxycodone-Acetamin ophen (Endocet) 5-325 mg tablet Discontinued 1 {tbl} PO EVERY 6 HOURS as needed for pain 8 2 0 December 12, 2024 February 19, 2025 1:17pm Back pain Dorsalgia, unspecified azithromycin 250 mg oral tablet (16 sources) Macrolide Antimicrobial Start: 10-02-2024 End: 12-03-2024 azithromycin (ZITHROMAX Z-DONALD) 250 mg tablet Indications: Upper respiratory tract infection, unspecified type 2 tablets by mouth first day then 1 tablet the next 4 days 6 tablet 10/02/2024 12/03/2024 Discontinued Start: 07-30-2024 End: 08-04-2024 azithromycin (ZITHROMAX Z-PA K) 250 mg tablet Indications: Lower resp. tract infection Take 2 tablets day one, then, 1 tablet daily until gone. 6 tablet 07/30/2024 08/04/2024 Active Start: 03-27-2024 End: 04-01-2024 azithromycin (ZITHROMAX Z-PA K) 250 mg tablet Take 2 tablets day one, then, 1 tablet daily until gone. 6 tablet 0 03/27/2024 04/01/2024 Active benzonatate 100 mg oral capsule (3 sources) Non-narcotic Antitussive Start: 09-26-2024 End: 10-03-2024 take 1 capsule by mouth three times daily as needed for cough benzonatate (TESSALON PERLE) 100 mg capsule Indications: Upper respiratory tract infection, unspecified type Take 1 capsule by mouth three times a day as needed for cough for up to 7 days. 21 capsule 09/26/2024 10/03/2024 cephalexin 500 mg oral capsule (6 sources) Cephalosporin Antibacterial Start: 12-12-2024 End: 01-31-2025 take 1 capsule by mouth twice daily Cephalexin 500 mg capsule Discontinued 500 mg PO TWICE A DAY 10 5 0 December 12, 2024 12:00am January 31, 2025 12:16pm docusate sodium 100 mg oral capsule (4 sources) Start: 03-29-2018 take 1 capsule by mouth twice daily as needed Docusate Sodium 100 MG Oral Capsule TAKE 1 CAPSULE TWICE DAILY NEEDED. Quantity: 60 Refills: 11 Ordered: 29-Mar-2018 Greta RUBIO Anupama Start : 29-Mar-2018 Active doxycycline monohydrate 100 mg oral tablet (4 sources) Tetracycline-class Drug Start: 01-31-2025 End: 02-10-2025 take 1 tablet by mouth twice daily Doxycycline Monohydrate 100 mg tablet Discontinued 100 mg PO TWICE A DAY 20 10 0 January 31, 2025 12:00am February 09, 2025 12:00am February 10, 2025 12:07am hydrocortisone 25 mg/ml topical cream (4 sources) Corticosteroid Start: 03-18-2018 Hydrocortisone 2.5 % CREA Quantity: 30 Refills: 0 Ordered: 18-Mar-2018 DO Start : 18-Mar-2018 Active Start: 03-18-2018 Hydrocortisone 2.5 % Rectal Cream Quantity: 30 Refills: 0 DO Start : 18-Mar-2018 Active hydrocortisone-pramoxine (PRAMOX) 25-18 mg suppository (15 sources) Start: 09-04-2023 End: 07-30-2024 hydrocortisone-pramoxine (PRAMOX) 25-18 mg suppository 1 Suppository by RECTAL route two times a day. 14 Suppository 09/04/2023 07/30/2024 Discontinued (Course of therapy completed) Start: 09-04-2023 hydrocortisone -pramoxine (PRAMOX) 25-18 mg suppository 1 Suppository by RECTAL route two times a day. 14 Suppository 09/04/2023 Active Start: 09-04-2023 hydrocortisone -pramoxine (PRAMOX) 25-18 mg suppository 1 Suppository by RECTAL route two times a day. 14 Suppository 0 09/04/2023 Active Comment on above: 1 Suppository by REC RICARDO route two times a day. hydrOXYzine hydrochloride 25 mg oral tablet (10 sources) Antihistamine Start : 03-03 End: 07-30 hydrOXYzine HCl (ATARAX) 25 mg tablet Take 25 mg by mouth. 03/03/2023 07/30/2024 Discontinued (Course of therapy completed) ibuprofen 800 mg oral tablet (14 sources) Nonsteroidal Anti-inflammatory Drug Start : 10-16 take 1 tablet by mouth every eight hours as needed ibuprofen (MOTRIN) 800 mg tablet Take 1 tablet by mouth every 8 hours as needed for Pain. 60 tablet 0 10/21/2020 Active Comment on above: Take 1 tablet by silviano every 8 hours as needed for Pain. loperamide hydrochloride 2 mg oral capsule (14 sources) Opioid Agonist Start : 08-04 End: 07-30 take 1 capsule by mouth every six hours as needed loperamide (IMODIUM) 2 mg cap(s) Take 1 capsule by mouth four times a day as needed for up to 7 days. 20 capsule 08/04/2023 07/30/2024 Discontinued (Course of therapy completed) Comment on above: Take 1 capsule by mo [facility] four times a day as needed for up to 7 days. medroxyPROGESTERone acetate 10 mg oral tablet (20 sources) Progestin Start : 05-14 End: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 showed for an appointment on 03/04/25 with Comfort Clement APRN.COMMUNITY LIAISON at 10:20 am . She was scheduled for 3 month follow up chronic pain knees/back stomach. Patient called the call center and note was added to appointment that patient called at 10:27 am to say she was not going to make it No show determined to be fault of patient: Yes This is the patients second no show in the last 12 months. Letter mailed : Yes Is this the Third or Fourth No Show? No Corazon Browningurer March 04, 2025 10:58 AM Allergies As of Date: 03/04/2025 Noted Allergy Reaction ADHESIVE TAPE (ROSINS) 03/14/2024 14 - Other: See Comments ADHESIVE TAPE-SILICONES 12/09/2021 2 - Rash CEPHALEXIN 12/09/2021 2 - Rash DOXYCYCLINE 03/06/2017 4 - Hives 14 - Other: See Comments 2 - Rash Comments: Patient c/o dizziness, rash and then hives HYDROCODONE-ACETAMINOPHE N 09/24/2009 14 - Other: See Comments HYDROCODONE-GUAIFENESIN 03/14/2024 16 - Unknown SULFA (SULFONAMIDE ANTIBIOTICS) 12/09/2021 4 - Hives 14 - Other: See Comments 16 - Unknown SULFAMETHOXAZOLE 12/09/2021 8 - GI Upset Date Reviewed: 01/10/2025 Reviewed by: Chelle Perkins MA - Fully Assessed Prescriptions as of 03/04/2025 - meloxicam (MOBIC) 15 mg tablet Take 1 tablet by mouth once daily. - metFORMIN (GLUCOPHAGE) 500 mg tablet Take 1 tablet by mouth two times a day. - cyanocobalamin (VITAMIN B-12) 500 mcg tablet Take 1 tablet by mouth once daily. - triamcinolone acetonide (KENALOG) 0.1 % cream Apply to affected area two times a day as needed. - DULoxetine (CYMBALTA) 30 mg capsule Take 1 capsule by mouth once daily. - BONINE 25 mg chewable tablet(s) Take 25 mg by mouth three times a day as needed. - omega-3 fatty acids/fish oil (FISH OIL-OMEGA-3 FATTY ACIDS) 300-1,000 mg cap - cholecalciferol (VITAMIN D-3) 50 mcg (2,000 unit) tablet Take 2 tablets by mouth once daily. - albuterol HFA (PROVENTIL HFA, VENTOLIN HFA) 90 mcg/actuation inhaler Inhale 2 Puffs as instructed every 4 hours as needed for wheezing/shortness of breath. - atorvastatin (LIPITOR) 40 mg tablet Take 1 tablet by mouth daily at bedtime. - acetaminophen (TYLENOL) 325 mg tablet Take 2 tablets by mouth every 6 hours as needed for pain or fever (specify temp.) (Fever of over 100.4). - levothyroxine (SYNTHROID) 100 mcg tablet Take 1 tablet by mouth once daily. - cyclobenzaprine (FLEXERIL) 5 mg tablet Take 1 tablet by mouth two times a day as needed. Problem List As Of Date 03/04/2025 Noted Resolved Type 2 diabetes mellitus without complication, * Hypothyroid [E03.9] Irregular Menses [N92.6] PCOD (polycystic ovarian disease) [E28.2] 05/25/2016 Hyperlipidemia [E78.5] 05/25/2016 Gallstones [K80.20] Dysmetabolic Syndrome [E88.810] Obesity [E66.9] Depression [F32.A] Vitamin D deficiency [E55.9] 08/30/2010 Hypothyroidism [E03.9] 04/11/2018 Obesity, Class III, BMI 40-49.9 (morbid obesity*12/09/2021 Impaired fasting glucose [R73.01] 12/29/2021 Cervical radiculopathy [M54.12] 11/03/2023 Lumbar radiculopathy [M54.16] 11/03/2023 Degeneration of intervertebral disc of lumbar r*11/03/2023 Muscle weakness [M62.81] 11/17/2023 02/19/2024 Pain in joint, multiple sites [M25.50] 11/17/2023 02/19/2024 Acute traumatic internal derangement of left kn*03/14/2024 03/14/2024 Abnormal uterine bleeding [N93.9] 03/14/2024 Acute cough [R05.1] 07/10/2023 03/14/2024 Acute sinusitis [J01.90] 03/14/2024 03/14/2024 Allergic rhinitis [J30.9] 03/14/2024 03/14/2024 Ankle pain [M25.579] 03/14/2024 03/14/2024 Constipation [K59.00] 03/14/2024 03/14/2024 Derangement of left knee [M23.92] 03/14/2024 03/14/2024 Diarrhea [R19.7] 08/04/2023 03/14/2024 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 03/14/2024 Hemorrhoids [K64.9] 03/18/2018 03/14/2024 Herpes zoster [B02.9] 03/14/2024 03/14/2024 Hyperglycemia [R73.9] 03/14/2024 03/14/2024 Muscle spasms of neck [M62.838] 03/14/2024 03/14/2024 Papanicolaou smear of cervix with atypical squa*03/14/2024 03/14/2024 Rash [R21] 03/14/2024 03/14/2024 Somatic dysfunction of cervical region [M99.01] 03/14/2024 03/14/2024 Somatic dysfunction of head region [M99.00] 03/14/2024 03/14/2024 Spasm of cervical paraspinous muscle [M62.838] 03/14/2024 03/14/2024 Strain of hamstring muscle [S76.319A] 03/14/2024 03/14/2024 Tension type headache [G44.209] 03/14/2024 03/14/2024 Vaginal odor [N89.8] 03/14/2024 03/14/2024 Allergy status to sulfonamides [Z88.2] 12/06/2022 03/14/2024 Muscle weakness (generalized) [M62.81] 11/17/2023 03/14/2024 Blister [T14.8XXA] 07/14/2023 03/14/2024 Other int (more content not included)... Normal [facility] [id number] 02-25-2025 [id number] HNO ID: [id number] Author: LIZ VEE, PT Service: ? Author Type: Physical Therapist Type: [id number] Filed: 02/25/2025 16:27 Note Text: [facility] Rehabilitation and Sports Therapy Physical Therapy Plan of Care Certification Patient Name: Judson De La Cruz : 1980 [facility] #: [id number] Date: 02/25/2025 To: Comfort Clement APRN.* From Therapist: Liz Vee PT RE: Patient Certification/ Recertification Your review, approval and electronic signature are required in order to comply with Payor: [facility] MEDICAID / Plan: [facility] / Product Type: Medicaid / regulations. The identified Physical Therapy PLAN OF CARE for the patient is as follows: No diagnosis found. PLAN OF CARE UPDATE: Assessment: Judson De La Cruz is discontinued from Physical Therapy services due to maximal benefit. and Patient/Client declining further intervention.. Patient was seen for 5 visits from Start of Care Date: 12/09/24 to 02/25/2025 and treatment included: Therapeutic exercise, Manual therapy, and Self-senior care management. Goals for Episode of Care: established 12/09/24 Goals updated on 01/09/2025. Goals updated on 02/25/2025. Independent in home exercises. -- MET Patient will decrease pain to 3-4/10 with functional activities to allow patient to improve ambulation, transfers, and standing tolerance for ADLs. -- NOT MET Restore pain-free lumbar ROM to moderate to minimal limitation without radiating symptoms to allow for transitional movements. -- NOT MET Stand / Walk 45 min to 1 hour without increased pain/symptoms. -- NOT MET Sit 1-2 hours without pain/symptoms to allow for seated activities. -- MET Patient will be able to tolerate functional activities for 1.5 to 2 hours without increased symptoms. -- NOT MET Patient Goals: reduce R LBP and R hip pain -- NOT MET For further details regarding this patient refer to the Physical Therapy electronically documented visit dated 02/25/2025. Provider Attestation I have reviewed the treatment plan for Judson De La Cruz, F# [id number] for the period of 02/25/25 -- 02/25/25, established on 02/25/2025. Signature certifies the need for therapy services. Normal [facility] CNTHERAPYon 02-25-2025 CNTHERAPY OT/PT/Speech Visit (PTWS) -------- JUDSON DE LA CRUZ ([id number]) 1980 F Date Time Provider Department 02/25/25 3:00 PM LIZ VEE PTWS Date Time Provider Department [place] 02/25/2025 3:00 PM [id number] VEE PTWS Clifford Hawkins Reason for Visit: PT Discharge [752] Primary Visit Diagnosis:Degeneration of intervertebral disc of lumbar region with discogenic back pain and lower extremity pain [M51.362] Allergies As of Date: 02/25/2025 Noted Allergy Reaction ADHESIVE TAPE (ROSINS) 03/14/2024 14 - Other: See Comments ADHESIVE TAPE-SILICONES 12/09/2021 2 - Rash CEPHALEXIN 12/09/2021 2 - Rash DOXYCYCLINE 03/06/2017 4 - Hives 14 - Other: See Comments 2 - Rash Comments: Patient c/o dizziness, rash and then hives HYDROCODONE-ACETAMINOPHE N 09/24/2009 14 - Other: See Comments HYDROCODONE-GUAIFENESIN 03/14/2024 16 - Unknown SULFA (SULFONAMIDE ANTIBIOTICS) 12/09/2021 4 - Hives 14 - Other: See Comments 16 - Unknown SULFAMETHOXAZOLE 12/09/2021 8 - GI Upset Date Reviewed: 01/10/2025 Reviewed by: Chelle Perkins MA - Fully Assessed Prescriptions as of 02/25/2025 - meloxicam (MOBIC) 15 mg tablet Take 1 tablet by mouth once daily. - metFORMIN (GLUCOPHAGE) 500 mg tablet Take 1 tablet by mouth two times a day. - cyanocobalamin (VITAMIN B-12) 500 mcg tablet Take 1 tablet by mouth once daily. - triamcinolone acetonide (KENALOG) 0.1 % cream Apply to affected area two times a day as needed. - DULoxetine (CYMBALTA) 30 mg capsule Take 1 capsule by mouth once daily. - BONINE 25 mg chewable tablet(s) Take 25 mg by mouth three times a day as needed. - omega-3 fatty acids/fish oil (FISH OIL-OMEGA-3 FATTY ACIDS) 300-1,000 mg cap - cholecalciferol (VITAMIN D-3) 50 mcg (2,000 unit) tablet Take 2 tablets by mouth once daily. - albuterol HFA (PROVENTIL HFA, VENTOLIN HFA) 90 mcg/actuation inhaler Inhale 2 Puffs as instructed every 4 hours as needed for wheezing/shortness of breath. - atorvastatin (LIPITOR) 40 mg tablet Take 1 tablet by mouth daily at bedtime. - acetaminophen (TYLENOL) 325 mg tablet Take 2 tablets by mouth every 6 hours as needed for pain or fever (specify temp.) (Fever of over 100.4). - levothyroxine (SYNTHROID) 100 mcg tablet Take 1 tablet by mouth once daily. - cyclobenzaprine (FLEXERIL) 5 mg tablet Take 1 tablet by mouth two times a day as needed. Normal [facility] Knee 4 or More Viewson 02-19 Knee 4 or More Views [facility] Imaging Services [address] [place] [address] [id number] Knee 4 or More Views MR#: [id number] Acct: [id number] Name: JUDSON DE LA CRUZ Rep #: [id number] : 1980 F 44 From: Carl Ruffin MD PCP: Care Physician,No Primary Status: DEP AMB Study: Knee 4 or More Views Date of Exam: 02/19/25 Exam# [id number] Ordering Dr: Tony Champion DO PROCEDURE: KNEE 4 OR MORE VIEWS 02/19/2025 REASON FOR EXAM: CHRONIC PAIN TECHNIQUE: KNEE 4 OR MORE VIEWS COMPARISON: Right knee radiographs on 07/01/2024 FINDINGS: No fracture. Mild lateral patellar tilt. There is moderate joint space narrowing in the medial compartment with tricompartmental osteophyte formation. An ossification measuring 4 mm projects over the infrapatellar joint space. Likely trace joint effusion. Bone mineral density is subjectively normal. Soft tissues unremarkable. RAD/Knee 4 or More Views IMPRESSION: Moderate osteoarthritis of the right knee. There is a probable loose body in the infrapatellar joint space measuring 4 mm. Reading Location: [id number] CC: Dr. Tony Champion DO; No Primary Care Physician Hot Man: Signed Normal [facility] Knee 4 or More Views [facility] Imaging Services [address] [place] [address] Knee 4 or More Views MR#: [id number] Acct: [id number] Name: JUDSON DE LA CRUZ Rep #: [id number] : 1980 F 44 From: Marva Betancur PCP: Care Physician,No Primary Status: DEP [facility] Study: Knee 4 or More Views Date of Exam: 02/19/25 Exam# [id number] Ordering Dr: Tony Champion DO PROCEDURE: KNEE 4 OR MORE VIEWS 02/19/2025 REASON FOR EXAM: CHRONIC PAIN TECHNIQUE: KNEE 4 OR MORE VIEWS COMPARISON: None RAD/Knee 4 or More Views IMPRESSION: No acute fracture or dislocations. Mild degenerative changes of the left knee. Minimal joint effusion. Mild diffuse soft tissue edema. No radiographic foreign body. Reading Location: [id number] CC: Dr. Tony Champion DO; No Primary Care Physician Hot Man: Signed Normal [facility] Orthopedic Visit Reporton Orthopedic Visit Report [facility] [address] [place] [address] [address] [place] [address] OFFICE VISIT Date of Service: 02/19/25 MR#: [id number] Acct: [id number] Name: JUDSON DE LA CRUZ Ambrocio Rep #: [id number] : 1980 Provider: Dr. Tony vernon DO Age/Sex: 44/F Location[place] [facility] Status: Signed Intake Vital Signs 01/31/25 12:15 02/19/25 13:14 Height 4 ft 8 in 4 ft 8 in Weight: 232 lb 4 oz 231 lb BMI 52.0 51.7 BP 120/76 Blood Pressure Location Rt brachial Position Sitting Respiration 18 Pulse 96 Pulse Source NIBP Temp 98.2 F Temp Source Oral Pulse Oximetry (%) 99 Oxygen Delivery Method room air Intake Visit Reasons: BL KNEES Chief Complaint: Bilateral knee pain Accompanied by: Self Is patient in pain?: Yes Pain scale (1-10): 9 Allergies acetaminophen (From Vicodin) Allergy (Mild, Verified 02/19/25 13:17) Nausea hydrocodone (From Vicodin) Allergy (Mild, Verified 02/19/25 13:17) Nausea Sulfa (Sulfonamide Antibiotics) Allergy (Mild, Verified 02/19/25 13:17) Rash Medications ???Medication ???Instructions ???Recorded ???Confirmed ???Type levothyroxine 100 mcg tablet 100 mcg PO QDAY 07/01/24 02/19/25 History metformin 500 mg tablet 500 mg PO QDAY 07/01/24 02/19/25 H istory atorvastatin 40 mg tablet 40 mg PO DAILY 07/12/24 02/19/25 H istory omega 2-zza-nbb-fish oil 100 2 cap PO DAILY 07/12/24 02/19/25 H istory mg-160 mg-1,000 mg capsule (Fish Oil) cyclobenzaprine 5 mg tablet 5 mg PO TID PRN muscle spasm #9 02/19/25 Rx tabs ondansetron 4 mg disintegrating 4 mg PO Q6H PRN nausea and 5 02/19/25 Rx tablet vomiting #20 tabs meloxicam 15 mg tablet 15 mg PO QDAY 02/19/25 02/19/25 Hi story Have you fallen in the past year?: Yes PFSH Medical History Arthritis Scoliosis Hypercholesterolemia Hypothyroidism Diabetes Migraine Surgical History Hx of cholecystectomy Family History Mother Scoliosis Other Cancer Heart disease Hypertension Social History housing: homeless Smoking Status: Never smoker alcohol intake: never what type of physical activity do you participate in: walking do you feel safe at home: No (sometimes) HPI BL KNEES Details: This documentation accurately reflects the service provided and the decisions made by me, Dr. Tony Champion, DO 02/19/25824. Part of today???s visit was documented by Adan Car MA, acting as scribe. JUDSON DE LA CRUZ is a 44 year old F here today for bilateral knee. The right knee hurts worse. The pain is mostly anterior. Feels achy and throbbing occasionally has pain going down the leg. This has been ongoing for 4 to 5 years. denies any surgeries on both knees. Bending getting up from a seated position and walking up and down steps makes it worse Patient denies any injections, or physical therapy in her knees. She states that she has had fluid taken out of her right knee by another provider it was very painful and does not want to have any further injection. Patient states that she doesn't want to do physical therapy for her knees, she doesn't think it would help. Patient quit smoking over 10 years ago, and denies any drug use. Patient does struggle walking, when walking she limps. She doesn't use a walker or a cane. BMI 51.7 07/01/2024 visit:BMI 51.5 history of diabetes hypothyroid hypercholesterol here today for B/L knee pain. Unsteadiness and difficulty walking. Hx xray and MRI left knee at [facility] about 2 years ago; s/p left knee injury tore cartilage while carrying bike up stairs left knee. Occ BLE weakness and heaviness. Notes snapping and popping. Denies hx of knee surgeries. Hx back injection for sciatica. Reports hx PT for back and BLE problems earlier this year in [facility]. Homeless last 2 years. Currently resides in homeless nursing home. Does not work at this time. 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 Occ urinary urgency issues with wear incontinence pad. Denies loss of bowel or bladder control. PRN tylenol, ibuprofen taken without relief. Does not use assistive device. Bilateral knee pain is over her anterior and medial knee. No recent infection around the knee. Plan:Patient is morbidly obese BMI 51.5 a lot of her pain issues are probably secondary to her weight. She does have some arthritic change on x-ray and is also showing signs of bilateral pes bursitis. She also has bilateral lower extremity edema which is tender on her skin. Educated patient on anatomy and etiology of both knees. Adv (more content not included)... Normal [facility] 02-13-2025 MAHIN Telephone (AGFAMPLE) -------- JUDSON DE LA CRUZ ([id number]) 1980 F Date Time Provider Department 02/13/25 COMFORT CLEMENT During your visit today, we recorded the following information about you: Carmella Palencia MA 02/13/2025 10:05 AM Signed Patient left message wanting to know if her acetaminophen could be sent in for twice daily instead of as needed so it can be in her bubble pack as she is taking it every morning and evening. Would like sent to [facility] [employer]. Please advise. NEHA Sanz Kristin C, APRN.[facility] 02/14/2025 12:30 PM Signed Liver enzymes were slightly elevated I would prefer she try to not take it everyday if possible Comfort Clement APRN.Sebastian Brandon MA 02/17/2025 9:05 AM Signed Patient notified and wants to know what she can take for her knee pain. She states the lidocaine doesn't work that well. Please advise. NEHA Carrero Kristin C, APRN.[facility] 02/17/2025 9:29 AM Signed She was referred to see orthopedics I would recommend scheduling She is already active with PT Comfort Clement APRN.Sebastian Brandon MA 02/17/2025 9:44 AM Signed Patient notified. Sebastian Bansal MA Allergies As of Date: 02/13/2025 Noted Allergy Reaction ADHESIVE TAPE (ROSINS) 03/14/2024 14 - Other: See Comments ADHESIVE TAPE-SILICONES 12/09/2021 2 - Rash CEPHALEXIN 12/09/2021 2 - Rash DOXYCYCLINE 03/06/2017 4 - Hives 14 - Other: See Comments 2 - Rash Comments: Patient c/o dizziness, rash and then hives HYDROCODONE-ACETAMINOPHE N 09/24/2009 14 - Other: See Comments HYDROCODONE-GUAIFENESIN 03/14/2024 16 - Unknown SULFA (SULFONAMIDE ANTIBIOTICS) 12/09/2021 4 - Hives 14 - Other: See Comments 16 - Unknown SULFAMETHOXAZOLE 12/09/2021 8 - GI Upset Date Reviewed: 01/10/2025 Reviewed by: Chelle Perkins MA - Fully Assessed Reason for Visit: Medication Question [3348] Prescriptions as of 02/17/2025 - triamcinolone acetonide (KENALOG) 0.1 % cream Apply to affected area two times a day as needed. - DULoxetine (CYMBALTA) 30 mg capsule Take 1 capsule by mouth once daily. - BONINE 25 mg chewable tablet(s) Take 25 mg by mouth three times a day as needed. - omega-3 fatty acids/fish oil (FISH OIL-OMEGA-3 FATTY ACIDS) 300-1,000 mg cap - cholecalciferol (VITAMIN D-3) 50 mcg (2,000 unit) tablet Take 2 tablets by mouth once daily. - albuterol HFA (PROVENTIL HFA, VENTOLIN HFA) 90 mcg/actuation inhaler Inhale 2 Puffs as instructed every 4 hours as needed for wheezing/shortness of breath. - atorvastatin (LIPITOR) 40 mg tablet Take 1 tablet by mouth daily at bedtime. - cyanocobalamin (VITAMIN B-12) 500 mcg tablet Take 1 tablet by mouth once daily. - acetaminophen (TYLENOL) 325 mg tablet Take 2 tablets by mouth every 6 hours as needed for pain or fever (specify temp.) (Fever of over 100.4). - levothyroxine (SYNTHROID) 100 mcg tablet Take 1 tablet by mouth once daily. - metFORMIN (GLUCOPHAGE) 500 mg tablet Take 1 tablet by mouth two times a day. - meloxicam (MOBIC) 15 mg tablet Take 1 tablet by mouth once daily. - cyclobenzaprine (FLEXERIL) 5 mg tablet Take 1 tablet by mouth two times a day as needed. Problem List As Of Date 02/13/2025 Noted Resolved Type 2 diabetes mellitus without complication, * Hypothyroid [E03.9] Irregular Menses [N92.6] PCOD (polycystic ovarian disease) [E28.2] 05/25/2016 Hyperlipidemia [E78.5] 05/25/2016 Gallstones [K80.20] Dysmetabolic Syndrome [E88.810] Obesity [E66.9] Depression [F32.A] Vitamin D deficiency [E55.9] 08/30/2010 Hypothyroidism [E03.9] 04/11/2018 Obesity, Class III, BMI 40-49.9 (morbid obesity*12/09/2021 Impaired fasting glucose [R73.01] 12/29/2021 Cervical radiculopathy [M54.12] 11/03/2023 Lumbar radiculopathy [M54.16] 11/03/2023 Degeneration of intervertebral disc of lumbar r*11/03/2023 Muscle weakness [M62.81] 11/17/2023 02/19/2024 Pain in joint, multiple sites [M25.50] 11/17/2023 02/19/2024 Acute traumatic internal derangement of left kn*03/14/2024 03/14/2024 Abnormal uterine bleeding [N93.9] 03/14/2024 Acute cough [R05.1] 07/10/2023 03/14/2024 Acute sinusitis [J01.90] 03/14/2024 03/14/2024 Allergic rhinitis [J30.9] 03/14/2024 03/14/2024 Ankle pain [M25.579] 03/14/2024 03/14/2024 Constipation [K59.00] 03/14/2024 03/14/2024 Derangement of left knee [M23.92] 03/14/2024 03/14/2024 Diarrhea [R19.7] 08/04/2023 03/14/2024 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 Normal [facility] CNCOon 02-07-2025 CNCO Letter Text Normal [facility] CNPNon 02-07-2025 STACEYN Telephone (AGFAMPLE) -------- JUDSON DE LA CRUZ ([id number]) 1980 F Date Time Provider Department 02/07/25 COMFORT CLEMENT During your visit today, we recorded the following information about you: Honey Patel 02/07/2025 2:54 PM Signed No Show Documentation Judson De La Cruz no showed for an appointment on 02/07/25 with Nunu Mckenzie APRN.COMMUNITY LIAISON at 1;20 pm. She was scheduled for constipation. I called and spoke with the patient regarding her missed appointment. Judson stated the reason that she missed her appointment was because forgot about appointment . Resources discussed/offered to patient: offered to reschedule. No show determined to be fault of patient: Yes This is the patients first no show in the last 12 months. Patient was rescheduled for pt said she will call back due to she was out doing stuff. Letter sent through [employer]. Is this the Third or Fourth No Show? Trina Patel February 07, 2025 2:52 PM Allergies As of Date: 02/07/2025 Noted Allergy Reaction ADHESIVE TAPE (ROSINS) 03/14/2024 14 - Other: See Comments ADHESIVE TAPE-SILICONES 12/09/2021 2 - Rash CEPHALEXIN 12/09/2021 2 - Rash DOXYCYCLINE 03/06/2017 4 - Hives 14 - Other: See Comments 2 - Rash Comments: Patient c/o dizziness, rash and then hives HYDROCODONE-ACETAMINOPHE N 09/24/2009 14 - Other: See Comments HYDROCODONE-GUAIFENESIN 03/14/2024 16 - Unknown SULFA (SULFONAMIDE ANTIBIOTICS) 12/09/2021 4 - Hives 14 - Other: See Comments 16 - Unknown SULFAMETHOXAZOLE 12/09/2021 8 - GI Upset Date Reviewed: 01/10/2025 Reviewed by: Chelle Perkins MA - Fully Assessed Reason for Visit: No Show [1558] Cmt: Pt no showed for appt on 02/07/25 Prescriptions as of 02/07/2025 - triamcinolone acetonide (KENALOG) 0.1 % cream Apply to affected area two times a day as needed. - DULoxetine (CYMBALTA) 30 mg capsule Take 1 capsule by mouth once daily. - BONINE 25 mg chewable tablet(s) Take 25 mg by mouth three times a day as needed. - omega-3 fatty acids/fish oil (FISH OIL-OMEGA-3 FATTY ACIDS) 300-1,000 mg cap - cholecalciferol (VITAMIN D-3) 50 mcg (2,000 unit) tablet Take 2 tablets by mouth once daily. - albuterol HFA (PROVENTIL HFA, VENTOLIN HFA) 90 mcg/actuation inhaler Inhale 2 Puffs as instructed every 4 hours as needed for wheezing/shortness of breath. - atorvastatin (LIPITOR) 40 mg tablet Take 1 tablet by mouth daily at bedtime. - cyanocobalamin (VITAMIN B-12) 500 mcg tablet Take 1 tablet by mouth once daily. - acetaminophen (TYLENOL) 325 mg tablet Take 2 tablets by mouth every 6 hours as needed for pain or fever (specify temp.) (Fever of over 100.4). - levothyroxine (SYNTHROID) 100 mcg tablet Take 1 tablet by mouth once daily. - metFORMIN (GLUCOPHAGE) 500 mg tablet Take 1 tablet by mouth two times a day. - meloxicam (MOBIC) 15 mg tablet Take 1 tablet by mouth once daily. - cyclobenzaprine (FLEXERIL) 5 mg tablet Take 1 tablet by mouth two times a day as needed. Problem List As Of Date 02/07/2025 Noted Resolved Type 2 diabetes mellitus without complication, * Hypothyroid [E03.9] Irregular Menses [N92.6] PCOD (polycystic ovarian disease) [E28.2] 05/25/2016 Hyperlipidemia [E78.5] 05/25/2016 Gallstones [K80.20] Dysmetabolic Syndrome [E88.810] Obesity [E66.9] Depression [F32.A] Vitamin D deficiency [E55.9] 08/30/2010 Hypothyroidism [E03.9] 04/11/2018 Obesity, Class III, BMI 40-49.9 (morbid obesity*12/09/2021 Impaired fasting glucose [R73.01] 12/29/2021 Cervical radiculopathy [M54.12] 11/03/2023 Lumbar radiculopathy [M54.16] 11/03/2023 Degeneration of intervertebral disc of lumbar r*11/03/2023 Muscle weakness [M62.81] 11/17/2023 02/19/2024 Pain in joint, multiple sites [M25.50] 11/17/2023 02/19/2024 Acute traumatic internal derangement of left kn*03/14/2024 03/14/2024 Abnormal uterine bleeding [N93.9] 03/14/2024 Acute cough [R05.1] 07/10/2023 03/14/2024 Acute sinusitis [J01.90] 03/14/2024 03/14/2024 Allergic rhinitis [J30.9] 03/14/2024 03/14/2024 Ankle pain [M25.579] 03/14/2024 03/14/2024 Constipation [K59.00] 03/14/2024 03/14/2024 Derangement of left knee [M23.92] 03/14/2024 03/14/2024 Diarrhea [R19.7] 08/04/2023 03/14/2024 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 03/14/2024 Hemorrhoids [K64.9] 03/18/2018 03/14/2024 Herpes zoster [B02.9] 03/14/2024 03/14/2024 Hyperglycemia [R73.9] 03/14/2024 03/14/2024 Muscle spasms of neck [M62.838] 03/14/2024 03/14/2024 Papanicolaou smear of cervix with atypical squa*03/14/2024 03/14/2024 Rash [R21] 03/14/2024 03/14/2024 Somatic dysfunction of cervical region [M99.01] 03/14/2024 03/14/2024 Somatic dysfunction of head region [M99.00] 03/14/2024 03/14/2024 Spasm of cervical paraspinous muscle [M62.838] 03/14/2024 03/14/2024 Strain of hamstring muscle [S76.319A] 03/14/2024 03/14/2024 Tension type headache [G44.209] 03/14/2024 (more content not included)... Normal [facility] Urgent Care Visit Reporton 0 01-31-2025 Urgent Care Visit Report [facility] [address], [address] [place] [address] OFFICE VISIT Date of Service: 01/31/25 MR#: [id number] Acct: [id number] Name: JUDSON DE LA CRUZ Rep #: [id number] : 1980 Provider: VENTURA Goncalves Age/Sex: 44/F Location: [facility] Status: Signed Intake Vital Signs 12/12/24 10:04 01/31/25 11:57 01/31/25 12:15 Height 4 ft 8 in 4 ft 8 in 4 ft 8 in Weight: 232 lb 4 oz BMI 52.0 BP 120/76 Blood Pressure Location Rt brachial Position Sitting Respiration 18 Pulse 96 Pulse Source NIBP Temp 98.2 F Temp Source Oral Pulse Oximetry (%) 99 Oxygen Delivery Method room air Intake Visit Reasons: abdominal wound Chief Complaint: right abd wound x 2 Lumber Sorter Required: No Is patient in pain?: Yes Allergies acetaminophen (From Vicodin) Allergy (Mild, Verified 01/31/25 12:16) Nausea hydrocodone (From Vicodin) Allergy (Mild, Verified 01/31/25 12:16) Nausea Sulfa (Sulfonamide Antibiotics) Allergy (Mild, Verified 01/31/25 12:16) Rash Medications ???Medication ???Instructions ???Recorded ???Confirmed ???Type levothyroxine 100 mcg tablet 100 mcg PO QDAY 07/01/24 07/12/24 History metformin 500 mg tablet 500 mg PO QDAY 07/01/24 07/12/24 H istory atorvastatin 40 mg tablet 40 mg PO DAILY 07/12/24 07/12/24 H istory omega 1-mtx-qlg-fish oil 100 2 cap PO DAILY 07/12/24 07/12/24 H istory mg-160 mg-1,000 mg capsule (Fish Oil) cyclobenzaprine 5 mg tablet 5 mg PO TID PRN muscle spasm #9 Rx tabs ondansetron 4 mg disintegrating 4 mg PO Q6H PRN nausea and 5 Rx tablet vomiting #20 tabs oxycodone-acetaminophen 5 mg-325 1 tab PO Q6H PRN pain 2 days #8 Rx mg tablet (Endocet) tabs doxycycline monohydrate 100 mg 100 mg PO BID 10 days #20 tabs 01/31/25 Rx tablet Is last menstrual period known: No Post menopausal: No Patient : No Have you fallen in the past year?: No Nurse's Note: right abdomen wound x2 for approx 3 days with burning and drainage. no active bleeding or drainage noted. pt denies fever, deniex hx of MRSA. pt admits to squeezing wound. PFSH Medical History Arthritis Scoliosis Hypercholesterolemia Hypothyroidism Diabetes Migraine Surgical History Hx of cholecystectomy Family History Mother Scoliosis Other Cancer Heart disease Hypertension Social History housing: homeless Smoking Status: Never smoker alcohol intake: never what type of physical activity do you participate in: walking do you feel safe at home: No (sometimes) HPI HPI Chief Complaint: right abd wound x 2 Details: JUDSON DE LA CRUZ, is a 44 F who presents to the office today for complaint of a infection on the right side of her abdomen. Patient states that this was noticed this morning when she is in the shower. She is unaware of any specific injury to the area and notes no known bites or irritations prior to this morning. She denies fever, chills or sweats. No pelvic or abdominal pain. No nausea, vomiting or diarrhea. No other associated symptoms or alleviating/aggravating factors. ROS Const Constitutional: No other (6 system ROS completed with pertinent findings in the HPI otherwise normal.) Exam Const General: cooperative Resp Effort Inspection: normal respiratory effort Cardio Rate: regular rate Skin Other: 3 lesions right abdomen with one of them being slightly larger measuring approximate 1 cm in diameter with mild induration. No fluctuance, warmth or drainage. Neuro General: patient alert Psych Appearance: grossly normal Mental Status: mental status grossly normal Coding Level of Care Code Off vis,new,level 3 Diagnoses Cellulitis of right abdominal wall L03.311 Assessment and Plan Assessment and Plan (1) Cellulitis of right abdominal wall: Status: Acute Medications: New doxycycline monohydrate 100 mg PO BID 20 tabs 0RF 10 days Plan Doxycycline as prescribed today. Encouraged to get plenty of rest, drink lots of clear liquids, and use Tylenol or Ibuprofen (unless contraindicated) for fever and comfort. Patient also educated on other symptomatic management techniques. To be seen in 7-10 days if no improvement; sooner if worsening of symptoms. Patient advised of potential red flags and when appropriate to report to the ED. Patient verbalized understanding and agreement with all the above. Clinical Quality Measures Falls Risk Screening/Assistive Devices Have you fallen in the past year?: No 01/31/25 1226 Date (more content not included)... Normal [facility] CNTHERAPYon 01-28-2025 CNTHERAPY OT/PT/Speech Visit (PTWS) -------- JONOJUDSON Ambrocio ([id number]) 1980 F Date Time Provider Department 01/28/25 2:15 PM LIZ VEE Date Time Provider Department [place] 01/28/2025 2:15 PM [id number] VEE PTCATARINO Clifford Ross Reason for Visit: Physical Therapy [503] Primary Visit Diagnosis:Degeneration of intervertebral disc of lumbar region with discogenic back pain and lower extremity pain [M51.362] Other Visit Diagnoses:Primary osteoarthritis of both knees [M17.0] Decreased mobility [R26.89] Allergies As of Date: 01/28/2025 Noted Allergy Reaction ADHESIVE TAPE (ROSINS) 03/14/2024 14 - Other: See Comments ADHESIVE TAPE-SILICONES 12/09/2021 2 - Rash CEPHALEXIN 12/09/2021 2 - Rash DOXYCYCLINE 03/06/2017 4 - Hives 14 - Other: See Comments 2 - Rash Comments: Patient c/o dizziness, rash and then hives HYDROCODONE-ACETAMINOPHE N 09/24/2009 14 - Other: See Comments HYDROCODONE-GUAIFENESIN 03/14/2024 16 - Unknown SULFA (SULFONAMIDE ANTIBIOTICS) 12/09/2021 4 - Hives 14 - Other: See Comments 16 - Unknown SULFAMETHOXAZOLE 12/09/2021 8 - GI Upset Date Reviewed: 01/10/2025 Reviewed by: Chelle Perkins MA - Fully Assessed Prescriptions as of 01/28/2025 - triamcinolone acetonide (KENALOG) 0.1 % cream Apply to affected area two times a day as needed. - DULoxetine (CYMBALTA) 30 mg capsule Take 1 capsule by mouth once daily. - diphenhydrAMINE (BENADRYL) 25 mg capsule Take 1 capsule by mouth every 6 hours as needed for cold/allergy symptoms. - BONINE 25 mg chewable tablet(s) Take 25 mg by mouth three times a day as needed. - omega-3 fatty acids/fish oil (FISH OIL-OMEGA-3 FATTY ACIDS) 300-1,000 mg cap - cholecalciferol (VITAMIN D-3) 50 mcg (2,000 unit) tablet Take 2 tablets by mouth once daily. - albuterol HFA (PROVENTIL HFA, VENTOLIN HFA) 90 mcg/actuation inhaler Inhale 2 Puffs as instructed every 4 hours as needed for wheezing/shortness of breath. - atorvastatin (LIPITOR) 40 mg tablet Take 1 tablet by mouth daily at bedtime. - cyanocobalamin (VITAMIN B-12) 500 mcg tablet Take 1 tablet by mouth once daily. - acetaminophen (TYLENOL) 325 mg tablet Take 2 tablets by mouth every 6 hours as needed for pain or fever (specify temp.) (Fever of over 100.4). - levothyroxine (SYNTHROID) 100 mcg tablet Take 1 tablet by mouth once daily. - metFORMIN (GLUCOPHAGE) 500 mg tablet Take 1 tablet by mouth two times a day. - meloxicam (MOBIC) 15 mg tablet Take 1 tablet by mouth once daily. - cyclobenzaprine (FLEXERIL) 5 mg tablet Take 1 tablet by mouth two times a day as needed. Normal [facility] 01-21-2025 MAHIN Telephone (KAREN) -------- JUDSON DE LA CRUZ ([id number]) 1980 F Date Time Provider Department 01/21/25 COMFORT CLEMENT During your visit today, we recorded the following information about you: Emily Hicks MA 01/21/2025 11:05 AM Signed Patient called she has an antibacterial infection between her toes with broken skin. She would like an ointment called into [facility] NEHA Williamson Kristin C, APRN.COMMUNITY LIAISON 01/21/2025 12:47 PM Signed Needs appointment - we need to look at it to determine what type of ointment to send. Comfort Clement APRN.Sebastian Brandon MA 01/21/2025 1:46 PM Signed Please help assist with scheduling appointment. Allergies As of Date: 01/21/2025 Noted Allergy Reaction ADHESIVE TAPE (ROSINS) 03/14/2024 14 - Other: See Comments ADHESIVE TAPE-SILICONES 12/09/2021 2 - Rash CEPHALEXIN 12/09/2021 2 - Rash DOXYCYCLINE 03/06/2017 4 - Hives 14 - Other: See Comments 2 - Rash Comments: Patient c/o dizziness, rash and then hives HYDROCODONE-ACETAMINOPHE N 09/24/2009 14 - Other: See Comments HYDROCODONE-GUAIFENESIN 03/14/2024 16 - Unknown SULFA (SULFONAMIDE ANTIBIOTICS) 12/09/2021 4 - Hives 14 - Other: See Comments 16 - Unknown SULFAMETHOXAZOLE 12/09/2021 8 - GI Upset Date Reviewed: 01/10/2025 Reviewed by: Chelle Perkins MA - Fully Assessed Prescriptions as of 01/21/2025 - triamcinolone acetonide (KENALOG) 0.1 % cream Apply to affected area two times a day as needed. - DULoxetine (CYMBALTA) 30 mg capsule Take 1 capsule by mouth once daily. - diphenhydrAMINE (BENADRYL) 25 mg capsule Take 1 capsule by mouth every 6 hours as needed for cold/allergy symptoms. - BONINE 25 mg chewable tablet(s) Take 25 mg by mouth three times a day as needed. - omega-3 fatty acids/fish oil (FISH OIL-OMEGA-3 FATTY ACIDS) 300-1,000 mg cap - cholecalciferol (VITAMIN D-3) 50 mcg (2,000 unit) tablet Take 2 tablets by mouth once daily. - albuterol HFA (PROVENTIL HFA, VENTOLIN HFA) 90 mcg/actuation inhaler Inhale 2 Puffs as instructed every 4 hours as needed for wheezing/shortness of breath. - atorvastatin (LIPITOR) 40 mg tablet Take 1 tablet by mouth daily at bedtime. - cyanocobalamin (VITAMIN B-12) 500 mcg tablet Take 1 tablet by mouth once daily. - acetaminophen (TYLENOL) 325 mg tablet Take 2 tablets by mouth every 6 hours as needed for pain or fever (specify temp.) (Fever of over 100.4). - levothyroxine (SYNTHROID) 100 mcg tablet Take 1 tablet by mouth once daily. - metFORMIN (GLUCOPHAGE) 500 mg tablet Take 1 tablet by mouth two times a day. - meloxicam (MOBIC) 15 mg tablet Take 1 tablet by mouth once daily. - cyclobenzaprine (FLEXERIL) 5 mg tablet Take 1 tablet by mouth two times a day as needed. Problem List As Of Date 01/21/2025 Noted Resolved Type 2 diabetes mellitus without complication, * Hypothyroid [E03.9] Irregular Menses [N92.6] PCOD (polycystic ovarian disease) [E28.2] 05/25/2016 Hyperlipidemia [E78.5] 05/25/2016 Gallstones [K80.20] Dysmetabolic Syndrome [E88.810] Obesity [E66.9] Depression [F32.A] Vitamin D deficiency [E55.9] 08/30/2010 Hypothyroidism [E03.9] 04/11/2018 Obesity, Class III, BMI 40-49.9 (morbid obesity*12/09/2021 Impaired fasting glucose [R73.01] 12/29/2021 Cervical radiculopathy [M54.12] 11/03/2023 Lumbar radiculopathy [M54.16] 11/03/2023 Degeneration of intervertebral disc of lumbar r*11/03/2023 Muscle weakness [M62.81] 11/17/2023 02/19/2024 Pain in joint, multiple sites [M25.50] 11/17/2023 02/19/2024 Acute traumatic internal derangement of left kn*03/14/2024 03/14/2024 Abnormal uterine bleeding [N93.9] 03/14/2024 Acute cough [R05.1] 07/10/2023 03/14/2024 Acute sinusitis [J01.90] 03/14/2024 03/14/2024 Allergic rhinitis [J30.9] 03/14/2024 03/14/2024 Ankle pain [M25.579] 03/14/2024 03/14/2024 Constipation [K59.00] 03/14/2024 03/14/2024 Derangement of left knee [M23.92] 03/14/2024 03/14/2024 Diarrhea [R19.7] 08/04/2023 03/14/2024 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 03/14/2024 Hemorrhoids [K64.9] 03/18/2018 03/14/2024 Herpes zoster [B02.9] 03/14/2024 03/14/2024 Hyperglycemia [R73.9] 03/14/2024 03/14/2024 Muscle spasms of neck [M62.838] 03/14/2024 03/14/2024 Papanicolaou smear of cervix with atypical squa*03/14/2024 03/14/2024 Rash [R21] 03/14/2024 03/14/2024 Somatic dysfunction of cervical region [M99.01] 03/14/2024 03/14/2024 Somatic dysfunction of head region [M99.00] 03/14/2024 03/14/2024 Spasm of cervical paraspinous muscle [M62.838] 03/14/2024 03/14/2024 Strain of hamstring muscle [S76.319A] 03/14/2024 03/14/2024 Tension type headache [G44.209] 03/14/2024 03/14/2024 Vaginal odor [N89.8] 03/14/2024 03/14/2024 Allergy status to sulfonamides [Z88.2] 12/06/2022 03/14/2024 Muscle weakness (generalized) [M62.81] 11/17/2023 03/14/2024 Blister [T14.8XXA] 07/14/2023 03/14/2024 Other intervertebr (more content not included)... Normal [facility] Bacteria Ur Culton Bacteria identified Cx Nom (U) CULTURE, URINE: Mixed microbiota, including predominantly: ORGANISM ID: 1 10,000 -<50,000 CFU/ml Streptococcus agalactiae (group b streptococcus) Susceptibility testing not performed on beta hemolytic streptococci due to predictable susceptibility to penicillin and other beta lactams. For testing, call Microbiology within 72 hours. Normal [facility] Comment on above: Performed By: #### 6 30-4 ####[facility] LABCLIA [id number] [address] [place] [address] [place] [facility] CNOVon 01-10-2025 CNOV Office Visit (UCWSTR ) -------- JUDSON DE LA CRUZ ([id number]) 1980 F Date Time Provider Department 01/10/25 11:15 AM [facility] During your visit today, we recorded the following information about you: Temperature Pulse Respiration Blood pressure 97.3 degrees 79/minute 18/minute 123/72 Weight 105.6 kg Alec Alex APRN.COMMUNITY LIAISON 01/10/2025 10:52 AM Signed [facility] Subjective Judson De La Cruz is a 44 year old female. Patient presents with: UTI: Frequency, incontinence Diarrhea: With mixed constipation HPI Urinary Frequency: - Reports inability to hold urine, requiring immediate voiding. Bowel Movement Urgency: - Reports inability to hold bowel movements, requiring immediate defecation. - Bowel movements take 30-40 minutes if solid, causing hemorrhoidal bleeding. - Describes stool consistency as thick, like gummy. - Reports chronic abdominal discomfort, stating my bowels always feel, it always hurts. - Suspects IBS with constipation. - History of cystectomy in 2006. Review of Systems Gastrointestinal: (+) abdominal discomfort, (+) bowel urgency, (+) difficulty defecation, (+) constipation, (+) rectal bleeding Genitourinary: (+) urinary frequency, (+) urinary urgency, (+) urinary incontinence Musculoskeletal: (+) low back pain Objective BP 123/72 Pulse 79 Temp 36.3 ?C (97.3 ?F) Resp 18 Wt 105.6 kg (232 lb 12.9 oz) LMP 09/04/2023 (Approximate) SpO2 97% BMI 49.89 kg/m? Physical Exam General: No acute distress. CV: Heart sounds normal. Resp: Breath sounds normal. Back: No tenderness to percussion. Abd: Mild tenderness to palpation. {1. Urinary frequency (R35.0) - Urinalysis negative for infection; urine culture ordered to confirm. - No costovertebral angle tenderness on exam. - Follow-up with primary care physician for further evaluation. 2. Chronic constipation (K59.09) - Abdominal exam reveals mild tenderness, no acute findings. - Recommended follow-up with primary care physician for further evaluation and potential specialist referral. Due to patient saying she has inability to hold bowel and bladder but it has been going on for a long time and then patient saying the bowel movements take 30 to 40 minutes. Patient is just being referred to primary care for more thorough evaluation. UTI appears negative but will send for culture just to verify and Recording using [employer] software for draft documentation of the visit was discussed with the patient/authorized retail customer service representative; all questions welcomed and answered. Patient/authorized retail customer service representative agreed to proceed MDM Procedures Allergies As of Date: 01/10/2025 Noted Allergy Reaction ADHESIVE TAPE (ROSINS) 03/14/2024 14 - Other: See Comments ADHESIVE TAPE-SILICONES 12/09/2021 2 - Rash CEPHALEXIN 12/09/2021 2 - Rash DOXYCYCLINE 03/06/2017 4 - Hives 14 - Other: See Comments 2 - Rash Comments: Patient c/o dizziness, rash and then hives HYDROCODONE-ACETAMINOPHE N 09/24/2009 14 - Other: See Comments HYDROCODONE-GUAIFENESIN 03/14/2024 16 - Unknown SULFA (SULFONAMIDE ANTIBIOTICS) 12/09/2021 4 - Hives 14 - Other: See Comments 16 - Unknown SULFAMETHOXAZOLE 12/09/2021 8 - GI Upset Date Reviewed: 01/10/2025 Reviewed by: Chelle Perkins MA - Fully Assessed Reason for Visit: UTI [116] Cmt: Frequency, incontinence Diarrhea [35] Cmt: With mixed constipation Primary Visit Diagnosis:Urinary frequency [R35.0] Other Visit Diagnosis:Chronic constipation [K59.09] Order(s):UA DIP, URINE (POC) [8925425] Order #: [id number]. #:[id number] BACTERIAL CULTURE, URINE [SQURCUL] Order #: [id number]. #:[id number] Prescriptions as of 01/10/2025 - triamcinolone acetonide (KENALOG) 0.1 % cream Apply to affected area two times a day as needed. - DULoxetine (CYMBALTA) 30 mg capsule Take 1 capsule by mouth once daily. - diphenhydrAMINE (BENADRYL) 25 mg capsule Take 1 capsule by mouth every 6 hours as needed for cold/allergy symptoms. - BONINE 25 mg chewable tablet(s) Take 25 mg by mouth three times a day as needed. - omega-3 fatty acids/fish oil (FISH OIL-OMEGA-3 FATTY ACIDS) 300-1,000 mg cap - cholecalciferol (VITAMIN D-3) 50 mcg (2,000 unit) tablet Take 2 tablets by mouth once daily. - albuterol HFA (PROVENTIL HFA, VENTOLIN HFA) 90 mcg/actuation inhaler Inhale 2 Puffs as instructed every 4 hours as needed for wheezing/shortness of breath. - atorvastatin (LIPITOR) 40 mg tablet Take 1 tablet by mouth daily at bedtime. - cyanocobalamin (VITAMIN B-12) 500 mcg tablet Take 1 tablet by mouth once daily. - acetaminophen (TYLENOL) 325 mg tablet Take 2 tablets by mouth every 6 hours as needed for pain or fever (specify temp.) (Fever of over 100.4). - levothyroxine (SYNTHROID) 100 mcg tablet Take 1 tablet by mouth once daily. - metFORMIN (GLUCO (more content not included)... Normal [facility] [id number] 01-09-2025 [id number] HNO ID: [id number] Author: LIZ VEE PT Service: ? Author Type: Physical Therapist Type: [id number] Filed: 01/09/2025 09:39 Note Text: [facility] Rehabilitation [facility] Sports Therapy Physical Therapy Plan of Care Certification Patient Name: Judson De La Cruz : 1980 [facility] #: [id number] Date: 01/09/2025 To: Comfort Clement APRN.* From Therapist: Liz Vee PT RE: Patient Certification/ Recertification Your review, approval and electronic signature are required in order to comply with Payor: [facility] MEDICAID / Plan: [facility] MEDICAID / Product Type: Medicaid / regulations. The identified Physical Therapy PLAN OF CARE for the patient is as follows: No diagnosis found. PLAN OF CARE UPDATE: Assessment: Judson De La Cruz demonstrates no improvement in sitting, walking, sleeping, cleaning, cooking, dressing, grooming, and weight bearing. The patient has progressed toward goals. Patient continues to present with impairments in ADL's, gait, independence in exercise, overall function, patient reported outcome measures, posture, range of motion, strength, symptom management, and tissue tenderness that interfere with walking, cleaning, dressing, grooming, sleeping, weight bearing, sitting . Current prognosis is Fair due to: poor past response to therapy intervention, chronic nature of impairments, clinical presentation, multiple co- morbidities . The patient will benefit from continued skilled therapy services to meet the updated goals for this plan of care as noted below. Goals for Episode of Care: established 12/09/24 Goals updated on 01/09/2025. Independent in home exercises. -- MET Patient will decrease pain to 3-4/10 with functional activities to allow patient to improve ambulation, transfers, and standing tolerance for ADLs. -- NOT MET Restore pain-free lumbar ROM to moderate to minimal limitation without radiating symptoms to allow for transitional movements. -- NOT MET Stand / Walk 45 min to 1 hour without increased pain/symptoms. -- NOT MET Sit 1-2 hours without pain/symptoms to allow for seated activities. -- NOT MET Patient will be able to tolerate functional activities for 1.5 to 2 hours without increased symptoms. -- NOT MET Patient Goals: reduce R LBP and R hip pain -- NOT MET Time Frame for Goals and Treatment : 01/20/25 Patient Goals: reduce R LBP and R hip pain Planned Interventions, Frequency, and Duration: 1x/week, 6 weeks Total Number of Visits Planned: 6 Patient to be seen for Therapeutic exercise (17565), Neuromuscular re-education (92517), Manual therapy (64721), Therapeutic activities (76912), Self-senior care management (80016), Gait Training (01524) PLAN FOR NEXT VISIT: assess symptom response to DN. DC if pt. does not improve with HEP compliance For further details regarding this patient refer to the Physical Therapy electronically documented visit dated 01/09/2025. Provider Attestation I have reviewed the treatment plan for Judson De La Cruz, [facility]# [id number] for the period of 12/09/24 -- 02/06/25, established on 01/09/2025. Signature certifies the need for therapy services. Normal [facility] CNPNon 01-09-2025 CNPN Telephone (AGFAMPLE) -------- JONOJUDSON Ambrocio ([id number]) 1980 F Date Time Provider Department 01/09/25 COMFORT CLEMENT During your visit today, we recorded the following information about you: Sebastian Bansal MA 01/09/2025 5:15 PM Signed Please schedule apt. For virtual visit for patient at 2:40 pm tomorrow 01/10/2025 for constipation. Thank you. NEHA Carrero Mary, MA 01/10/2025 3:19 PM Signed Pt went to urgent care. Sebastian Bansal MA Allergies As of Date: 01/09/2025 Noted Allergy Reaction ADHESIVE TAPE (ROSINS) 03/14/2024 14 - Other: See Comments ADHESIVE TAPE-SILICONES 12/09/2021 2 - Rash CEPHALEXIN 12/09/2021 2 - Rash DOXYCYCLINE 03/06/2017 4 - Hives 14 - Other: See Comments 2 - Rash Comments: Patient c/o dizziness, rash and then hives HYDROCODONE-ACETAMINOPHE N 09/24/2009 14 - Other: See Comments HYDROCODONE-GUAIFENESIN 03/14/2024 16 - Unknown SULFA (SULFONAMIDE ANTIBIOTICS) 12/09/2021 4 - Hives 14 - Other: See Comments 16 - Unknown SULFAMETHOXAZOLE 12/09/2021 8 - GI Upset Date Reviewed: 12/27/2024 Reviewed by: Comfort Clement APRN.COMMUNITY LIAISON - Fully Assessed Reason for Visit: Appointment [186] Prescriptions as of 01/10/2025 - triamcinolone acetonide (KENALOG) 0.1 % cream Apply to affected area two times a day as needed. - DULoxetine (CYMBALTA) 30 mg capsule Take 1 capsule by mouth once daily. - diphenhydrAMINE (BENADRYL) 25 mg capsule Take 1 capsule by mouth every 6 hours as needed for cold/allergy symptoms. - BONINE 25 mg chewable tablet(s) Take 25 mg by mouth three times a day as needed. - omega-3 fatty acids/fish oil (FISH OIL-OMEGA-3 FATTY ACIDS) 300-1,000 mg cap - cholecalciferol (VITAMIN D-3) 50 mcg (2,000 unit) tablet Take 2 tablets by mouth once daily. - albuterol HFA (PROVENTIL HFA, VENTOLIN HFA) 90 mcg/actuation inhaler Inhale 2 Puffs as instructed every 4 hours as needed for wheezing/shortness of breath. - atorvastatin (LIPITOR) 40 mg tablet Take 1 tablet by mouth daily at bedtime. - cyanocobalamin (VITAMIN B-12) 500 mcg tablet Take 1 tablet by mouth once daily. - acetaminophen (TYLENOL) 325 mg tablet Take 2 tablets by mouth every 6 hours as needed for pain or fever (specify temp.) (Fever of over 100.4). - levothyroxine (SYNTHROID) 100 mcg tablet Take 1 tablet by mouth once daily. - metFORMIN (GLUCOPHAGE) 500 mg tablet Take 1 tablet by mouth two times a day. - meloxicam (MOBIC) 15 mg tablet Take 1 tablet by mouth once daily. - cyclobenzaprine (FLEXERIL) 5 mg tablet Take 1 tablet by mouth two times a day as needed. Problem List As Of Date 01/09/2025 Noted Resolved Type 2 diabetes mellitus without complication, * Hypothyroid [E03.9] Irregular Menses [N92.6] PCOD (polycystic ovarian disease) [E28.2] 05/25/2016 Hyperlipidemia [E78.5] 05/25/2016 Gallstones [K80.20] Dysmetabolic Syndrome [E88.810] Obesity [E66.9] Depression [F32.A] Vitamin D deficiency [E55.9] 08/30/2010 Hypothyroidism [E03.9] 04/11/2018 Obesity, Class III, BMI 40-49.9 (morbid obesity*12/09/2021 Impaired fasting glucose [R73.01] 12/29/2021 Cervical radiculopathy [M54.12] 11/03/2023 Lumbar radiculopathy [M54.16] 11/03/2023 Degeneration of intervertebral disc of lumbar r*11/03/2023 Muscle weakness [M62.81] 11/17/2023 02/19/2024 Pain in joint, multiple sites [M25.50] 11/17/2023 02/19/2024 Acute traumatic internal derangement of left kn*03/14/2024 03/14/2024 Abnormal uterine bleeding [N93.9] 03/14/2024 Acute cough [R05.1] 07/10/2023 03/14/2024 Acute sinusitis [J01.90] 03/14/2024 03/14/2024 Allergic rhinitis [J30.9] 03/14/2024 03/14/2024 Ankle pain [M25.579] 03/14/2024 03/14/2024 Constipation [K59.00] 03/14/2024 03/14/2024 Derangement of left knee [M23.92] 03/14/2024 03/14/2024 Diarrhea [R19.7] 08/04/2023 03/14/2024 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 03/14/2024 Hemorrhoids [K64.9] 03/18/2018 03/14/2024 Herpes zoster [B02.9] 03/14/2024 03/14/2024 Hyperglycemia [R73.9] 03/14/2024 03/14/2024 Muscle spasms of neck [M62.838] 03/14/2024 03/14/2024 Papanicolaou smear of cervix with atypical squa*03/14/2024 03/14/2024 Rash [R21] 03/14/2024 03/14/2024 Somatic dysfunction of cervical region [M99.01] 03/14/2024 03/14/2024 Somatic dysfunction of head region [M99.00] 03/14/2024 03/14/2024 Spasm of cervical paraspinous muscle [M62.838] 03/14/2024 03/14/2024 Strain of hamstring muscle [S76.319A] 03/14/2024 03/14/2024 Tension type headache [G44.209] 03/14/2024 03/14/2024 Vaginal odor [N89.8] 03/14/2024 03/14/2024 Allergy status to sulfonamides [Z88.2] 12/06/2022 03/14/2024 Muscle weakness (generalized) [M62.81] 11/17/2023 03/14/2024 Blister [T14.8XXA] 07/14/2023 03/14/2024 Other intervertebral disc degeneration, lumbar *11/03/2023 03/14/2024 Pain in right hip [M25.551] 12/06/2022 03/14/2024 Pain in unspecified joint [M25.50] 11/17/2023 03/14/2024 (more content not included)... Normal [facility] CNTHERAPYon 01-09-2025 CNTHERAPY OT/PT/Speech Visit (PTWS) -------- JUDSON DE LA CRUZ ([id number]) 1980 F Date Time Provider Department 01/09/25 8:45 AM LIZ VEE PTCATARINO Date Time Provider Department Center 01/09/2025 8:45 AM [id number] VEE PTWS Clifford Hawkins Reason for Visit: PT Progress Note [1596] Primary Visit Diagnosis:Degeneration of intervertebral disc of lumbar region with discogenic back pain and lower extremity pain [M51.362] Allergies As of Date: 01/09/2025 Noted Allergy Reaction ADHESIVE TAPE (ROSINS) 03/14/2024 14 - Other: See Comments ADHESIVE TAPE-SILICONES 12/09/2021 2 - Rash CEPHALEXIN 12/09/2021 2 - Rash DOXYCYCLINE 03/06/2017 4 - Hives 14 - Other: See Comments 2 - Rash Comments: Patient c/o dizziness, rash and then hives HYDROCODONE-ACETAMINOPHE N 09/24/2009 14 - Other: See Comments HYDROCODONE-GUAIFENESIN 03/14/2024 16 - Unknown SULFA (SULFONAMIDE ANTIBIOTICS) 12/09/2021 4 - Hives 14 - Other: See Comments 16 - Unknown SULFAMETHOXAZOLE 12/09/2021 8 - GI Upset Date Reviewed: 12/27/2024 Reviewed by: Comfort Clement APRN.COMMUNITY LIAISON - Fully Assessed Prescriptions as of 01/09/2025 - triamcinolone acetonide (KENALOG) 0.1 % cream Apply to affected area two times a day as needed. - DULoxetine (CYMBALTA) 30 mg capsule Take 1 capsule by mouth once daily. - diphenhydrAMINE (BENADRYL) 25 mg capsule Take 1 capsule by mouth every 6 hours as needed for cold/allergy symptoms. - BONINE 25 mg chewable tablet(s) Take 25 mg by mouth three times a day as needed. - omega-3 fatty acids/fish oil (FISH OIL-OMEGA-3 FATTY ACIDS) 300-1,000 mg cap - cholecalciferol (VITAMIN D-3) 50 mcg (2,000 unit) tablet Take 2 tablets by mouth once daily. - albuterol HFA (PROVENTIL HFA, VENTOLIN HFA) 90 mcg/actuation inhaler Inhale 2 Puffs as instructed every 4 hours as needed for wheezing/shortness of breath. - atorvastatin (LIPITOR) 40 mg tablet Take 1 tablet by mouth daily at bedtime. - cyanocobalamin (VITAMIN B-12) 500 mcg tablet Take 1 tablet by mouth once daily. - acetaminophen (TYLENOL) 325 mg tablet Take 2 tablets by mouth every 6 hours as needed for pain or fever (specify temp.) (Fever of over 100.4). - levothyroxine (SYNTHROID) 100 mcg tablet Take 1 tablet by mouth once daily. - metFORMIN (GLUCOPHAGE) 500 mg tablet Take 1 tablet by mouth two times a day. - meloxicam (MOBIC) 15 mg tablet Take 1 tablet by mouth once daily. - cyclobenzaprine (FLEXERIL) 5 mg tablet Take 1 tablet by mouth two times a day as needed. Normal [facility] CNTHERAPYon 12-30-2024 CNTHERAPY OT/PT/Speech Visit (PTWS) -------- JUDSON DE LA CRUZ ([id number]) 1980 F Date Time Provider Department 12/30/24 11:30 AM KIMBERLY MAHONEY Date Time Provider Department Center 12/30/2024 11:30 AM [id number] MAHONEY Clifford Hawkins Reason for Visit: Physical Therapy [503] Primary Visit Diagnosis:Degeneration of intervertebral disc of lumbar region with discogenic back pain and lower extremity pain [M51.362] Allergies As of Date: 12/30/2024 Noted Allergy Reaction ADHESIVE TAPE (ROSINS) 03/14/2024 14 - Other: See Comments ADHESIVE TAPE-SILICONES 12/09/2021 2 - Rash CEPHALEXIN 12/09/2021 2 - Rash DOXYCYCLINE 03/06/2017 4 - Hives 14 - Other: See Comments 2 - Rash Comments: Patient c/o dizziness, rash and then hives HYDROCODONE-ACETAMINOPHE N 09/24/2009 14 - Other: See Comments HYDROCODONE-GUAIFENESIN 03/14/2024 16 - Unknown SULFA (SULFONAMIDE ANTIBIOTICS) 12/09/2021 4 - Hives 14 - Other: See Comments 16 - Unknown SULFAMETHOXAZOLE 12/09/2021 8 - GI Upset Date Reviewed: 12/27/2024 Reviewed by: Comfort Clement APRN.COMMUNITY LIAISON - Fully Assessed Prescriptions as of 12/30/2024 - triamcinolone acetonide (KENALOG) 0.1 % cream Apply to affected area two times a day as needed. - lidocaine (LMX) 4 % cream Apply to affected area three times a day as needed. - DULoxetine (CYMBALTA) 30 mg capsule Take 1 capsule by mouth once daily. - diphenhydrAMINE (BENADRYL) 25 mg capsule Take 1 capsule by mouth every 6 hours as needed for cold/allergy symptoms. - BONINE 25 mg chewable tablet(s) Take 25 mg by mouth three times a day as needed. - omega-3 fatty acids/fish oil (FISH OIL-OMEGA-3 FATTY ACIDS) 300-1,000 mg cap - cholecalciferol (VITAMIN D-3) 50 mcg (2,000 unit) tablet Take 2 tablets by mouth once daily. - albuterol HFA (PROVENTIL HFA, VENTOLIN HFA) 90 mcg/actuation inhaler Inhale 2 Puffs as instructed every 4 hours as needed for wheezing/shortness of breath. - atorvastatin (LIPITOR) 40 mg tablet Take 1 tablet by mouth daily at bedtime. - cyanocobalamin (VITAMIN B-12) 500 mcg tablet Take 1 tablet by mouth once daily. - acetaminophen (TYLENOL) 325 mg tablet Take 2 tablets by mouth every 6 hours as needed for pain or fever (specify temp.) (Fever of over 100.4). - levothyroxine (SYNTHROID) 100 mcg tablet Take 1 tablet by mouth once daily. - metFORMIN (GLUCOPHAGE) 500 mg tablet Take 1 tablet by mouth two times a day. - meloxicam (MOBIC) 15 mg tablet Take 1 tablet by mouth once daily. - cyclobenzaprine (FLEXERIL) 5 mg tablet Take 1 tablet by mouth two times a day as needed. Residential Door Installer: Addendum Therapy (PT/OT/Speech/Resp) ID: [id number] 12/30/2024 12:06 PM Author: KIMBERLY MAHONEY Signed by KIMBERLY MAHONEY PT on 12/30/2024 at 12:06 PM * * * This document replaces document [id number] * * * Document text: Program_ID:[id number] Access Code: [email or web address] URL: [email or web address] It/ Date: 12-30-2024 Prepared By: Liz Vee Program Notes Exercises - Supine Posterior Pelvic Tilt - 1 x daily - 7 x weekly - 4 sets - 10 reps - Hooklying Single Knee to Chest - 1 x daily - 7 x weekly - 3 sets - 3 reps - Supine October - 1 x daily - 7 x weekly - 3 sets - 10 reps Normal [facility] THERAPY NTon 12-30-2024 THERAPY NT HNO ID: [id number] Author: KIMBERLY MAHONEY PT Service: ? Author Type: Physical Therapist Type: Therapy (PT/OT/Speech/Resp) Filed: 12/30/2024 12:06 Note Text: Program_ID:[id number] Access Code: [email or web address] URL: [email or web address] Bundle It/ Date: 12-30-2024 Prepared By: Liz Vee Program Notes Exercises - Supine Posterior Pelvic Tilt - 1 x daily - 7 x weekly - 4 sets - 10 reps - Hooklying Single Knee to Chest - 1 x daily - 7 x weekly - 3 sets - 3 reps - Supine October - 1 x daily - 7 x weekly - 3 sets - 10 reps Normal [facility] CNPNon 12-23-2024 CNPN Telephone (KAREN) -------- JUDSON DE LA CRUZ ([id number]) 1980 F Date Time Provider Department 12/23/24 COMFORT CLEMENT During your visit today, we recorded the following information about you: Sebastian Bansal MA 12/23/2024 9:38 AM Signed Aniyah from [facility] on requesting triamcinolone to be prn. If ok we can call her back at [phone]. Comfort Clement APRN.CNP 12/24/2024 8:26 AM Signed Yes that would be no problem. DIONISIO Johnson Kristin C, APRN.CNP 12/24/2024 8:26 AM Signed Addended by: COMFORT CLEMENT on: 12/24/2024 08:26 AM Modules accepted: Orders Sebastian Bansal MA 12/24/2024 8:30 AM Signed Aniyah notified and is requesting new rx with prn sent to [facility]. NEHA Carrero Mary, MA 12/24/2024 8:30 AM Signed Addended by: SEBASTIAN BANSAL on: 12/24/2024 08:30 AM Modules accepted: Orders Allergies As of Date: 12/23/2024 Noted Allergy Reaction ADHESIVE TAPE (ROSINS) 03/14/2024 14 - Other: See Comments ADHESIVE TAPE-SILICONES 12/09/2021 2 - Rash CEPHALEXIN 12/09/2021 2 - Rash DOXYCYCLINE 03/06/2017 4 - Hives 14 - Other: See Comments 2 - Rash Comments: Patient c/o dizziness, rash and then hives HYDROCODONE-ACETAMINOPHE N 09/24/2009 14 - Other: See Comments HYDROCODONE-GUAIFENESIN 03/14/2024 16 - Unknown SULFA (SULFONAMIDE ANTIBIOTICS) 12/09/2021 4 - Hives 14 - Other: See Comments 16 - Unknown SULFAMETHOXAZOLE 12/09/2021 8 - GI Upset Date Reviewed: 12/03/2024 Reviewed by: Sebastian Bansal MA - Fully Assessed Reason for Visit: Refill Request [94] Visit Diagnosis:Hand dermatitis [L30.9] Order(s):triamcinolone acetonide (KENALOG) 0.1 % creamApply to affected area two times a day as needed.Disp: Rfl: Prescriptions as of 12/24/2024 - triamcinolone acetonide (KENALOG) 0.1 % cream Apply to affected area two times a day as needed. - lidocaine (LMX) 4 % cream Apply to affected area three times a day as needed. - DULoxetine (CYMBALTA) 30 mg capsule Take 1 capsule by mouth once daily. - diphenhydrAMINE (BENADRYL) 25 mg capsule Take 1 capsule by mouth every 6 hours as needed for cold/allergy symptoms. - BONINE 25 mg chewable tablet(s) Take 25 mg by mouth three times a day as needed. - omega-3 fatty acids/fish oil (FISH OIL-OMEGA-3 FATTY ACIDS) 300-1,000 mg cap - cholecalciferol (VITAMIN D-3) 50 mcg (2,000 unit) tablet Take 2 tablets by mouth once daily. - albuterol HFA (PROVENTIL HFA, VENTOLIN HFA) 90 mcg/actuation inhaler Inhale 2 Puffs as instructed every 4 hours as needed for wheezing/shortness of breath. - atorvastatin (LIPITOR) 40 mg tablet Take 1 tablet by mouth daily at bedtime. - cyanocobalamin (VITAMIN B-12) 500 mcg tablet Take 1 tablet by mouth once daily. - acetaminophen (TYLENOL) 325 mg tablet Take 2 tablets by mouth every 6 hours as needed for pain or fever (specify temp.) (Fever of over 100.4). - levothyroxine (SYNTHROID) 100 mcg tablet Take 1 tablet by mouth once daily. - metFORMIN (GLUCOPHAGE) 500 mg tablet Take 1 tablet by mouth two times a day. - meloxicam (MOBIC) 15 mg tablet Take 1 tablet by mouth once daily. - cyclobenzaprine (FLEXERIL) 5 mg tablet Take 1 tablet by mouth two times a day as needed. Problem List As Of Date 12/23/2024 Noted Resolved Type 2 diabetes mellitus without complication, * Hypothyroid [E03.9] Irregular Menses [N92.6] PCOD (polycystic ovarian disease) [E28.2] 05/25/2016 Hyperlipidemia [E78.5] 05/25/2016 Gallstones [K80.20] Dysmetabolic Syndrome [E88.810] Obesity [E66.9] Depression [F32.A] Vitamin D deficiency [E55.9] 08/30/2010 Hypothyroidism [E03.9] 04/11/2018 Obesity, Class III, BMI 40-49.9 (morbid obesity*12/09/2021 Impaired fasting glucose [R73.01] 12/29/2021 Cervical radiculopathy [M54.12] 11/03/2023 Lumbar radiculopathy [M54.16] 11/03/2023 Degeneration of intervertebral disc of lumbar r*11/03/2023 Muscle weakness [M62.81] 11/17/2023 02/19/2024 Pain in joint, multiple sites [M25.50] 11/17/2023 02/19/2024 Acute traumatic internal derangement of left kn*03/14/2024 03/14/2024 Abnormal uterine bleeding [N93.9] 03/14/2024 Acute cough [R05.1] 07/10/2023 03/14/2024 Acute sinusitis [J01.90] 03/14/2024 03/14/2024 Allergic rhinitis [J30.9] 03/14/2024 03/14/2024 Ankle pain [M25.579] 03/14/2024 03/14/2024 Constipation [K59.00] 03/14/2024 03/14/2024 Derangement of left knee [M23.92] 03/14/2024 03/14/2024 Diarrhea [R19.7] 08/04/2023 03/14/2024 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 Normal [facility] Urine Cultureon 12-14-2024 URC Below infection leve l. Mixed Gram Positive Organisms [place] Count 1000-10,000 MIXC Mixed contaminants. Submit a new specimen if indicated. Normal [facility] Comment on above: Performed By: #### M 100.1105 ####[facility] [id number] [place], [address] [facility] CNPN Telephone (AGFAMARLIN) -------- JUDSON DE LA CRUZ ([id number]) 1980 F Date Time Provider Department 12/13/24 COMFORT CLEMENT During your visit today, we recorded the following information about you: Sebastian Bansal MA 12/13/2024 11:59 AM Signed Patient lm on requesting scooter rx [facility] be sent to [facility] At fax number [phone] Phone number . NEHA Carrero Kristin C, LESTER.[facility] 12/16/2024 8:20 AM Signed Thank you, please fax order. Comfort Clement APRN.COMMUNITY LIAISON Comfort Clement APRN.[facility] 12/16/2024 8:20 AM Signed Addended by: COFMORT CLEEMNT on: 12/16/2024 08:20 AM Modules accepted: Orders Sebastian Bansal MA 12/16/2024 8:55 AM Signed Faxed . Sebastian Bansal MA Allergies As of Date: 12/13/2024 Noted Allergy Reaction ADHESIVE TAPE (ROSINS) 03/14/2024 14 - Other: See Comments ADHESIVE TAPE-SILICONES 12/09/2021 2 - Rash CEPHALEXIN 12/09/2021 2 - Rash DOXYCYCLINE 03/06/2017 4 - Hives 14 - Other: See Comments 2 - Rash Comments: Patient c/o dizziness, rash and then hives HYDROCODONE-ACETAMINOPHE N 09/24/2009 14 - Other: See Comments HYDROCODONE-GUAIFENESIN 03/14/2024 16 - Unknown SULFA (SULFONAMIDE ANTIBIOTICS) 12/09/2021 4 - Hives 14 - Other: See Comments 16 - Unknown SULFAMETHOXAZOLE 12/09/2021 8 - GI Upset Date Reviewed: 12/03/2024 Reviewed by: Sebastian Bnasal MA - Fully Assessed Reason for Visit: Electronic Communication [890] Cmt: Scooter rx Primary Visit Diagnosis:Primary osteoarthritis of both knees [M17.0] Other Visit Diagnoses:Degeneration of intervertebral disc of lumbar region with discogenic back pain and lower extremity pain [M51.362] Decreased mobility [R26.89] Order(s):LIGHTWT PORT MOTOR/PWR WHEELCHR [[id number]] Order #: [id number] Prescriptions as of 12/16/2024 - lidocaine (LMX) 4 % cream Apply to affected area three times a day as needed. - DULoxetine (CYMBALTA) 30 mg capsule Take 1 capsule by mouth once daily. - diphenhydrAMINE (BENADRYL) 25 mg capsule Take 1 capsule by mouth every 6 hours as needed for cold/allergy symptoms. - BONINE 25 mg chewable tablet(s) Take 25 mg by mouth three times a day as needed. - omega-3 fatty acids/fish oil (FISH OIL-OMEGA-3 FATTY ACIDS) 300-1,000 mg cap - cholecalciferol (VITAMIN D-3) 50 mcg (2,000 unit) tablet Take 2 tablets by mouth once daily. - albuterol HFA (PROVENTIL HFA, VENTOLIN HFA) 90 mcg/actuation inhaler Inhale 2 Puffs as instructed every 4 hours as needed for wheezing/shortness of breath. - atorvastatin (LIPITOR) 40 mg tablet Take 1 tablet by mouth daily at bedtime. - cyanocobalamin (VITAMIN B-12) 500 mcg tablet Take 1 tablet by mouth once daily. - acetaminophen (TYLENOL) 325 mg tablet Take 2 tablets by mouth every 6 hours as needed for pain or fever (specify temp.) (Fever of over 100.4). - levothyroxine (SYNTHROID) 100 mcg tablet Take 1 tablet by mouth once daily. - metFORMIN (GLUCOPHAGE) 500 mg tablet Take 1 tablet by mouth two times a day. - triamcinolone acetonide (KENALOG) 0.1 % cream Apply to affected area two times a day. - meloxicam (MOBIC) 15 mg tablet Take 1 tablet by mouth once daily. - cyclobenzaprine (FLEXERIL) 5 mg tablet Take 1 tablet by mouth two times a day as needed. Problem List As Of Date 12/13/2024 Noted Resolved Type 2 diabetes mellitus without complication, * Hypothyroid [E03.9] Irregular Menses [N92.6] PCOD (polycystic ovarian disease) [E28.2] 05/25/2016 Hyperlipidemia [E78.5] 05/25/2016 Gallstones [K80.20] Dysmetabolic Syndrome [E88.810] Obesity [E66.9] Depression [F32.A] Vitamin D deficiency [E55.9] 08/30/2010 Hypothyroidism [E03.9] 04/11/2018 Obesity, Class III, BMI 40-49.9 (morbid obesity*12/09/2021 Impaired fasting glucose [R73.01] 12/29/2021 Cervical radiculopathy [M54.12] 11/03/2023 Lumbar radiculopathy [M54.16] 11/03/2023 Degeneration of intervertebral disc of lumbar r*11/03/2023 Muscle weakness [M62.81] 11/17/2023 02/19/2024 Pain in joint, multiple sites [M25.50] 11/17/2023 02/19/2024 Acute traumatic internal derangement of left kn*03/14/2024 03/14/2024 Abnormal uterine bleeding [N93.9] 03/14/2024 Acute cough [R05.1] 07/10/2023 03/14/2024 Acute sinusitis [J01.90] 03/14/2024 03/14/2024 Allergic rhinitis [J30.9] 03/14/2024 03/14/2024 Ankle pain [M25.579] 03/14/2024 03/14/2024 Constipation [K59.00] 03/14/2024 03/14/2024 Derangement of left knee [M23.92] 03/14/2024 03/14/2024 Diarrhea [R19.7] 08/04/2023 03/14/2024 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 Normal [facility] Bilirubin Test strip Ql (U)O rdered By: Tha Causey on 12-12-2024 Bilirubin Ql (U) Negative Negative [facility] Emergency Department Summary on 12-12-2024 Emergency Department Summary [facility] Medical Records Department [address] [place] [address] Emergency Department Summary 12/12/24 MR#: [id number] Acct: [id number] Name: JUDSON DE LA CRUZ Rep #: [id number] : 1980 44 From: Tha Causey DO PCP: Care Physician,No Primary Status:REG ER Location: ED HPI History of Present Illness Chief Complaint: Back Narrative Narrative: Patient is a 44-year-old female with past medical history of scoliosis, hypercholesteremia, hypothyroidism, diabetes, migraines, chronic back pain who presented to the emerged part with a chief complaint of back pain. Patient states that she is in pain management and went to physical therapy few days ago and notes that during her exercises her back started hurting her more. She states that she feels like the exercises exacerbate her pain. States that she is on some medications for her back pain but cannot specifically tell me what she is taking for this. Patient denies any new injuries or trauma. Patient denies any history of IV drug use, smoking or alcohol use. Patient states that she has been urinating more frequently with some pain with urination and notes that she is having normal bowel movements. Patient states that her back pain is on the right side and radiates down the back of her leg into her foot. [facility] Medical History Arthritis Scoliosis Hypercholesterolemia Hypothyroidism Diabetes Migraine Home Medications ???Medication ???Instructions ???Recorded ???Last Taken ???Type levothyroxine 100 mcg tablet 100 mcg PO QDAY 07/01/24 Unknown H istory metformin 500 mg tablet 500 mg PO QDAY 07/01/24 Unknown Hi story atorvastatin 40 mg tablet 40 mg PO DAILY 07/12/24 Unknown Hi story omega 0-pjr-zsk-fish oil 100 2 cap PO DAILY 07/12/24 Unknown Hi story mg-160 mg-1,000 mg capsule (Fish Oil) cephalexin 500 mg capsule 500 mg PO BID 5 days #10 caps 11/20 12/13 Unknown Rx cyclobenzaprine 5 mg tablet 5 mg PO TID PRN muscle spasm #9 Unknown Rx tabs ondansetron 4 mg disintegrating 4 mg PO Q6H PRN nausea and 5 Unknown Rx tablet vomiting #20 tabs oxycodone-acetaminophen 5 mg-325 1 tab PO Q6H PRN pain 2 days #8 Unknown Rx mg tablet (Endocet) tabs prednisone 5 mg tablets in a dose See Rx Instructions PO .COMPLEX 0 12/12/24 Unknown Rx pack #21 tabs Allergy/AdvReac Type Severity Reaction Status Date / Time acetaminophen (From Vicodin) Allergy Mild Nausea Verified 12/12/24 10:06 hydrocodone (From Vicodin) Allergy Mild Nausea Verified 12/12/24 10:06 Sulfa (Sulfonamide Allergy Mild Rash Verified 12/12/24 10:06 Antibiotics) Family History Mother Scoliosis Other Cancer Heart disease Hypertension Surgical History Hx of cholecystectomy Social History housing: homeless Smoking Status: Never smoker alcohol intake: never what type of physical activity do you participate in: walking do you feel safe at home: No (sometimes) ROS ROS ED ROS Narrative Constitutional: Denies fevers, chills, headaches Cardiovascular: Denies chest pain Respiratory: Denies shortness of breath Abdomen: Denies abdominal pain nausea, vomiting, diarrhea : Complains of urinary symptoms as noted above denies any hematuria Neurological: Denies numbness, weakness, tingling Musculoskeletal: Complains of back pain as noted above Skin: Denies any rashes or lesions EXAM Physical Exam Narrative Exam Narrative: General: Patient was lying in bed rest comfortably did not appear to be in acute distress Head: Atraumatic, normocephalic Eyes: PERRL bilaterally, EOMI bilaterally, no conjunctival injection noted Neck: Soft, supple, trachea midline Cardiovascular: Regular rate and rhythm Abdomen: Soft, nondistended Extremities: +4/5 strength noted in the bilateral upper and lower extremities, no pedal edema on exam Neurological: Patient following commands knew that she was at [facility] year is 2024 no saddle anesthesia noted Skin: Warm, dry, intact no rashes lesions noted Const Vital Signs: 12/12/24 10:04 Temperature 97.9 F Temperature Source Oral Pulse Rate 76 Respiratory Rate 18 Blood Pressure 110/78 Blood Pressure Mean 88 Pulse Ox 99 Oxygen Delivery Method Room Air MDM MDM MDM Narrative Medical decision making narrative: Patient is a 44-year-old female who presented to the emergency department chief complaint of flare of her chronic back pain. On the differential diagnose includes but not limited to herniated disc, musculoskeletal strain, flare of her chronic back pain, UTI, vincent (more content not included)... Normal [facility] Epithelial cells.squamous LM Ql (Urine sed)Ordered By: Tha Causey on 12-12-2024 Epithelial cells.squamous LM.HPF (Urine sed) [#/Area] 5 /[HPF] 5-10 [facility] Glucose Ql (U)Ordered By: Celestine Causey on 12-12-2024 Urine Glucose (UA) Normal mg/dl Normal [facility] Ketones Test strip Ql (U)Ord ered By: Tha Causey on 12-12-2024 Ketones Ql (U) Negative Negative [facility] Microscopic analysis of urin e for red blood cells (RBC)Ordered By: Tha Causey on 12-12-2024 Microscopic analysis of urine for red blood cells (RBC) 0 SEEN /hpf 0-5 [facility] Urine RBC 0 SEEN /hpf 0-5 [facility] Mucus LM Ql (Urine sed)Order ed By: Tha Causey on 12-12-2024 Mucus Ql (Urine sed) 0 SEEN /hpf [facility] Nitrite Test strip Ql (U)Ord ered By: Tha Causey on 12-12-2024 Nitrite Ql (U) Negative Negative [facility] Protein Test strip Ql (U)Ord ered By: Tha Causey on 12-12-2024 Protein Ql (U) Negative Negative [facility] Squamous epithelial cells de tection in urine sediment by light microscopyOrdered By: Tha Causey on 12-12-2024 Epithelial cells.squamous LM Ql (Urine sed) 5-10 SEEN /hpf 5-10 [facility] Urinalysis, Completeon 12-12 EPI,SQUAMOUS 5-10 SEEN Normal 5-10 [facility] Comment on above: Order Comment: CLAUDIA CTOR TO SPECIFY Performed By: #### L 400.0001 ####[facility] [address] [place], [address] WBC 5-10 SEEN Normal 0-5 [facility] Comment on above: Order Comment: CLAUDIA CTOR TO SPECIFY Performed By: #### L 400.0001 ####[facility] [address] [place], [address] BACTERIA 0 SEEN Normal None Seen [facility] Comment on above: Order Comment: CLAUDIA CTOR TO SPECIFY Performed By: #### L 400.0001 ####[facility] [address] [place], [address] Mucus Ql (Urine sed) 0 SEEN Normal [facility] Comment on above: Order Comment: CLAUDIA CTOR TO SPECIFY Performed By: #### L 400.0001 ####[facility] [address] [place], [address] RBC 0 SEEN Normal 0-5 [facility] Comment on above: Order Comment: CLAUDIA CTOR TO SPECIFY Performed By: #### L 400.0001 ####[facility] [address] [place], [address] Urine blood detectionOrdered By: Tha Causey on 12-12-2024 Urine Occult Blood Negative Negative [facility] Urine clarityOrdered By: Flaquito Causey on 12-12-2024 Clarity (U) Clear Clear [facility] Urine color determinationOrd ered By: Tha Causey on 12-12-2024 Color (U) Yellow Yellow [facility] Urine cultureOrdered By: Flaquito Causey on 12-12-2024 Bacteria identified Cx Nom (U) Positive Abnormal [facility] Urine glucose detectionOrder ed By: Tha Causey on 12-12-2024 Glucose Ql (U) Normal mg/dl Normal [facility] Urine leukocyte esterase det ection by dipstickOrdered By: Tha Causey on 12-12-2024 Leukocyte esterase Test strip Ql (U) 100 /ul High Negative [facility] Urine pHOrdered By: Tha alvarenga on 12-12-2024 pH (U) 8.0 [pH] 5.0 - 8.0 [facility] Urine sediment bacteria coun t by microscopy (number/high power field)Ordered By: Tha Causey on 12-12-2024 Bacteria LM.HPF (Urine sed) [#/Area] 0 /[HPF] None Seen [facility] Urine specific gravity measu rementOrdered By: Tha Causey on 12-12-2024 Specific gravity (U) [Rel density] 1.010 1.002-1.030 [facility] Urine urobilinogen measureme ntOrdered By: Tha Causey on 12-12-2024 Urobilinogen Ql (U) Normal mg/dl Normal [facility] Urobilinogen Ql (U)Ordered B y: Tha Causey on 12-12-2024 Urine Urobilinogen Normal mg/dl Normal [facility] White blood cell countOrdere d By: Tha Causey on 12-12-2024 Urine WBC 5-10 SEEN /hpf 0-5 [facility] White blood cell count 5-10 SEEN /hpf 0-5 [facility] [id number] 12-09-2024 [id number] HNO ID: [id number] Author: LIZ VEE PT Service: ? Author Type: Physical Therapist Type: [id number] Filed: 12/09/2024 11:28 Note Text: [facility] Rehabilitation [facility] Sports Therapy Physical Therapy Plan of Care Certification Patient Name: Judson De La Cruz : 1980 [facility] #: [id number] Date: 12/09/2024 To: Comfort Clement APRN.* From Therapist: Liz Vee PT RE: Patient Certification/ Recertification Your review, approval and electronic signature are required in order to comply with Payor: [facility] MEDICAID / Plan: [facility] MEDICAID / Product Type: Medicaid / regulations. The identified Physical Therapy PLAN OF CARE for the patient is as follows: M51.362 Degeneration of intervertebral disc of lumbar region with discogenic back pain and lower extremity pain (primary encounter diagnosis) PLAN OF CARE: Assessment: Judson De La Cruz presents with diagnosis of degeneration of intervertebral disc of lumbar region with discogenic back pain and lower extremity pain that interferes with walking, cleaning, dressing, grooming, sleeping, weight bearing, sitting . The patient presents with impairments in ADL's, balance, flexibility, gait, independence in exercise, joint mobility, overall function, patient reported outcome measures, posture, range of motion, strength, symptom management, and tissue tenderness. PROMIS? (Patient-Reported Outcomes Measurement Information System) scores were reviewed and identified as a rehabilitation concern. Prognosis for therapy is Fair due to: poor past response to therapy intervention, chronic nature of impairments, clinical presentation, multiple co- morbidities . The patient will benefit from skilled therapy services to meet the goals established for this plan of care as noted below. Classification Pain Mechanism Classification: Nociplastic/Central Low Back Pain Classification: Central Mechanism/Nociplastic Pain Goals for Episode of Care: established 12/09/24 Independent in home exercises. Patient will decrease pain to 3-4/10 with functional activities to allow patient to improve ambulation, transfers, and standing tolerance for ADLs. Restore pain-free lumbar ROM to moderate to minimal limitation without radiating symptoms to allow for transitional movements. Stand / Walk 45 min to 1 hour without increased pain/symptoms. Sit 1-2 hours without pain/symptoms to allow for seated activities. Patient will be able to tolerate functional activities for 1.5 to 2 hours without increased symptoms. Patient Goals: reduce R LBP and R hip pain Time Frame for Goals and Treatment : 01/20/25 Planned Interventions, Frequency, and Duration: Current Frequency: 1x/week Duration: 6 weeks Total Number of Visits Planned: 6 Planned Treatment Interventions: Therapeutic exercise (10574), Neuromuscular re-education (59358), Manual therapy (25203), Therapeutic activities (02465), Self-senior care management (68779), Gait Training (99283) PLAN FOR NEXT VISIT: assess symptom response to lumbar extension directional preference. Discuss dry needling-- pt. mentions at end of visit thats what she is supposed to have. Patient demonstrates good understanding of plan of care and treatment. The above goals and plan of care were discussed and agreed upon by patient/family. For further details regarding this patient refer to the Physical Therapy electronically documented visit dated 12/09/2024. Provider Attestation I have reviewed the treatment plan for Judson De La Cruz, [facility]# [id number] for the period of 12/09/24 -- 01/20/25, established on 12/09/2024. Signature certifies the need for therapy services. Normal [facility] 12-09-2024 CNPN Telephone (AGFAMPLE) -------- JUDSON DE LA CRUZ ([id number]) 1980 F Date Time Provider Department 12/09/24 COMFORT CLEMENT During your visit today, we recorded the following information about you: Comfort Clement APRN.STACEY 12/09/2024 3:26 PM Signed Mild elevated of liver enzymes GGT and ferritin are normal - these are liver markers Cholesterol panel shows LDL cholesterol is at goal, HDL is a little low at 39 - continue atorvastatin Knee x-rays - Right knee - moderate arthritis and bone spurs Left knee - mild arthritis and bone spurs I would like her to see an non destructive testing specialist - see referral to Dr Katerina Clement APRN.Emily Meraz MA 12/09/2024 3:30 PM Signed Left a message for patient to call back NEHA Williamson Mary, MA 12/11/2024 9:01 AM Signed Another message left on patients voicemail to contact office and let us know if we can leave information on vm or check my chart message. NEHA Carrero Mary, MA 12/11/2024 9:44 AM Signed Patient notified and is seeing dr. Harris March 10. Patient is wondering if we can repeat the liver enzymes to see if they get worse. She was wondering when she should do this? Please advise. NEHA Carrero Kristin C, APRN.STACEY 12/11/2024 12:41 PM Signed We can monitor them every 3 months Comfort Clement APRN.Sebastian Brandon MA 12/11/2024 1:50 PM Signed Patient notified. Sebastian Bansal MA Allergies As of Date: 12/09/2024 Noted Allergy Reaction ADHESIVE TAPE (ROSINS) 03/14/2024 14 - Other: See Comments ADHESIVE TAPE-SILICONES 12/09/2021 2 - Rash CEPHALEXIN 12/09/2021 2 - Rash DOXYCYCLINE 03/06/2017 4 - Hives 14 - Other: See Comments 2 - Rash Comments: Patient c/o dizziness, rash and then hives HYDROCODONE-ACETAMINOPHE N 09/24/2009 14 - Other: See Comments HYDROCODONE-GUAIFENESIN 03/14/2024 16 - Unknown SULFA (SULFONAMIDE ANTIBIOTICS) 12/09/2021 4 - Hives 14 - Other: See Comments 16 - Unknown SULFAMETHOXAZOLE 12/09/2021 8 - GI Upset Date Reviewed: 12/03/2024 Reviewed by: Sebastian Bansal MA - Fully Assessed Reason for Visit: Results [95] Cmt: Labs and x-rays Primary Visit Diagnosis:Primary osteoarthritis of both knees [M17.0] Other Visit Diagnosis:Osteophyte of both knees [M25.761, M25.762] Order(s):CONSULT TO ORTHOPAEDICS [6542] Order #: [id number]: 1 FUTURE Prescriptions as of 12/11/2024 - lidocaine (LMX) 4 % cream Apply to affected area three times a day as needed. - DULoxetine (CYMBALTA) 30 mg capsule Take 1 capsule by mouth once daily. - diphenhydrAMINE (BENADRYL) 25 mg capsule Take 1 capsule by mouth every 6 hours as needed for cold/allergy symptoms. - BONINE 25 mg chewable tablet(s) Take 25 mg by mouth three times a day as needed. - omega-3 fatty acids/fish oil (FISH OIL-OMEGA-3 FATTY ACIDS) 300-1,000 mg cap - cholecalciferol (VITAMIN D-3) 50 mcg (2,000 unit) tablet Take 2 tablets by mouth once daily. - albuterol HFA (PROVENTIL HFA, VENTOLIN HFA) 90 mcg/actuation inhaler Inhale 2 Puffs as instructed every 4 hours as needed for wheezing/shortness of breath. - atorvastatin (LIPITOR) 40 mg tablet Take 1 tablet by mouth daily at bedtime. - cyanocobalamin (VITAMIN B-12) 500 mcg tablet Take 1 tablet by mouth once daily. - acetaminophen (TYLENOL) 325 mg tablet Take 2 tablets by mouth every 6 hours as needed for pain or fever (specify temp.) (Fever of over 100.4). - levothyroxine (SYNTHROID) 100 mcg tablet Take 1 tablet by mouth once daily. - metFORMIN (GLUCOPHAGE) 500 mg tablet Take 1 tablet by mouth two times a day. - triamcinolone acetonide (KENALOG) 0.1 % cream Apply to affected area two times a day. - meloxicam (MOBIC) 15 mg tablet Take 1 tablet by mouth once daily. - cyclobenzaprine (FLEXERIL) 5 mg tablet Take 1 tablet by mouth two times a day as needed. Problem List As Of Date 12/09/2024 Noted Resolved Type 2 diabetes mellitus without complication, * Hypothyroid [E03.9] Irregular Menses [N92.6] PCOD (polycystic ovarian disease) [E28.2] 05/25/2016 Hyperlipidemia [E78.5] 05/25/2016 Gallstones [K80.20] Dysmetabolic Syndrome [E88.810] Obesity [E66.9] Depression [F32.A] Vitamin D deficiency [E55.9] 08/30/2010 Hypothyroidism [E03.9] 04/11/2018 Obesity, Class III, BMI 40-49.9 (morbid obesity*12/09/2021 Impaired fasting glucose [R73.01] 12/29/2021 Cervical radiculopathy [M54.12] 11/03/2023 Lumbar radiculopathy [M54.16] 11/03/2023 Degeneration of intervertebral disc of lumbar r*11/03/2023 Muscle weakness [M62.81] 11/17/2023 02/19/2024 Pain in joint, multiple sites [M25.50] 11/17/2023 02/19/2024 Acute traumatic internal derangement of left kn*03/14/2024 03/14/2024 Abnormal uterine bleeding [N93.9] 03/14/2024 Acute cough [R05.1] 07/10/2023 03/14/2024 Acute sinusitis [J01.90] 03/14/2024 03/14/2024 Allergic rhinitis [J30.9] 03/14/2024 0 (more content not included)... Normal [facility] CNTHERAPYon 12-09-2024 CNTHERAPY OT/PT/Speech Visit (PTWS) -------- JUDSON DE LA CRUZ ([id number]) 1980 F Date Time Provider Department 12/09/24 11:00 AM LIZ VEE PTWS Date Time Provider Department Center 12/09/2024 11:00 AM [id number] VEE PTCATARINO [facility] Reason for Visit: PT Eval [747] Primary Visit Diagnosis:Degeneration of intervertebral disc of lumbar region with discogenic back pain and lower extremity pain [M51.362] Allergies As of Date: 12/09/2024 Noted Allergy Reaction ADHESIVE TAPE (ROSINS) 03/14/2024 14 - Other: See Comments ADHESIVE TAPE-SILICONES 12/09/2021 2 - Rash CEPHALEXIN 12/09/2021 2 - Rash DOXYCYCLINE 03/06/2017 4 - Hives 14 - Other: See Comments 2 - Rash Comments: Patient c/o dizziness, rash and then hives HYDROCODONE-ACETAMINOPHE N 09/24/2009 14 - Other: See Comments HYDROCODONE-GUAIFENESIN 03/14/2024 16 - Unknown SULFA (SULFONAMIDE ANTIBIOTICS) 12/09/2021 4 - Hives 14 - Other: See Comments 16 - Unknown SULFAMETHOXAZOLE 12/09/2021 8 - GI Upset Date Reviewed: 12/03/2024 Reviewed by: Sebastian Bansal MA - Fully Assessed Prescriptions as of 12/09/2024 - lidocaine (LMX) 4 % cream Apply to affected area three times a day as needed. - DULoxetine (CYMBALTA) 30 mg capsule Take 1 capsule by mouth once daily. - diphenhydrAMINE (BENADRYL) 25 mg capsule Take 1 capsule by mouth every 6 hours as needed for cold/allergy symptoms. - BONINE 25 mg chewable tablet(s) Take 25 mg by mouth three times a day as needed. - omega-3 fatty acids/fish oil (FISH OIL-OMEGA-3 FATTY ACIDS) 300-1,000 mg cap - cholecalciferol (VITAMIN D-3) 50 mcg (2,000 unit) tablet Take 2 tablets by mouth once daily. - albuterol HFA (PROVENTIL HFA, VENTOLIN HFA) 90 mcg/actuation inhaler Inhale 2 Puffs as instructed every 4 hours as needed for wheezing/shortness of breath. - atorvastatin (LIPITOR) 40 mg tablet Take 1 tablet by mouth daily at bedtime. - cyanocobalamin (VITAMIN B-12) 500 mcg tablet Take 1 tablet by mouth once daily. - acetaminophen (TYLENOL) 325 mg tablet Take 2 tablets by mouth every 6 hours as needed for pain or fever (specify temp.) (Fever of over 100.4). - levothyroxine (SYNTHROID) 100 mcg tablet Take 1 tablet by mouth once daily. - metFORMIN (GLUCOPHAGE) 500 mg tablet Take 1 tablet by mouth two times a day. - triamcinolone acetonide (KENALOG) 0.1 % cream Apply to affected area two times a day. - meloxicam (MOBIC) 15 mg tablet Take 1 tablet by mouth once daily. - cyclobenzaprine (FLEXERIL) 5 mg tablet Take 1 tablet by mouth two times a day as needed. [employer] Installer: Addendum Therapy (PT/OT/Speech/Resp) ID: [id number] 12/09/2024 11:07 AM Author: LIZ VEE Signed by LIZ VEE PT on 12/09/2024 at 11:07 AM * * * This document replaces document [id number] * * * Document text: Program_ID:[id number] Access Code: [email or web address] URL: [email or web address] Date: 12-09-2024 Prepared By: Liz Vee Program Notes Exercises - Lying Prone - 2-3 x daily - 7 x weekly - 1 sets - reps - Static Prone on Elbows - 2-3 x daily - 7 x weekly - 1 sets - reps - Prone Push Ups on Forearms - 2-3 x daily - 7 x weekly - 2-3 sets - 5 reps - Supine Posterior Pelvic Tilt - 1 x daily - 7 x weekly - 4 sets - 10 reps Normal [facility] THERAPY NTon 12-09-2024 THERAPY NT HNO ID: [id number] Author: LIZ VEE, PT Service: ? Author Type: Physical Therapist Type: Therapy (PT/OT/Speech/Resp) Filed: 12/09/2024 11:07 Note Text: Program_ID:[id number] Access Code: [email or web address] URL: [email or web address] Date: 12-09-2024 Prepared By: Liz Vee Program Notes Exercises - Lying Prone - 2-3 x daily - 7 x weekly - 1 sets - reps - Static Prone on Elbows - 2-3 x daily - 7 x weekly - 1 sets - reps - Prone Push Ups on Forearms - 2-3 x daily - 7 x weekly - 2-3 sets - 5 reps - Supine Posterior Pelvic Tilt - 1 x daily - 7 x weekly - 4 sets - 10 reps Normal [facility] No Panel Informationon 12-07 IMPRESSION: Degenerative changes as detailed above. No acute osseous abnormality. Hot Man: VINNY Transcribe Date/Time: Dec 07 2024 9:30A Dictated by : GLENDY GALAVIZ MD This examination was interpreted and the report reviewed and electronically signed by: GLENDY GALAVIZ MD on Dec 07 2024 9:33AM EST [employer] No Panel InformationOrdered By: [facility] Provider on 12-07-2024 [facility] XR Knee - bilateral APon * * *Final Report* * * DATE OF EXAM: Dec 03 2024 12:51PM LDX 5213 - XR KNEE SURVEY 1V AP CASE / PROCEDURE REASON: multiple diagnoses * * * * Physician Interpretation * * * * EXAMINATION: XR KNEE SURVEY 1V AP CASE, XR KNEE 4V AP/LAT/OBLS LT, XR KNEE 4V AP/LAT/OBLS RT HISTORY: Pt. c/o bilateral knee pain, most pain right knee all through out patella and laterl knee. No trauma. Bilateral primary osteoarthritis of knee Chronic pain of both knees Chronic pain of both knees Chronic pain of both knees. TECHNIQUE: XR KNEE SURVEY 1V AP CASE, XR KNEE 4V AP/LAT/OBLS LT, XR KNEE 4V AP/LAT/OBLS RT Laterality: NOT APPLICABLE (accession [id number]), LEFT (accession [id number]), RIGHT (accession [id number]) Number of different views (projections): 1 (accession [id number]), 4 (accession [id number]), 4 (accession [id number]) M: XB_1 COMPARISON: Radiograph 07/01/2023 and 05/31/2022 RESULT: Right knee: Weightbearing view demonstrates moderate medial tibiofemoral joint space narrowing. This may be somewhat worsened compared to prior. There are mild osteophytic spurs of the lateral tibiofemoral compartment. No fracture, subluxation or sizable joint effusion. There appears to be at least a mild degree of patellofemoral joint space narrowing with peripheral osteophyte. Left knee: Weightbearing view demonstrates mild medial tibiofemoral joint space narrowing. There are peripheral osteophytes of the lateral tibiofemoral compartment. No fracture, subluxation or sizable joint effusion. Minimal appearing osteophytosis of the patellofemoral joint. No other significant abnormality. [employer] [facility] Provider, [facility] - 12/07/2024 * * *Final Report* * * DATE OF EXAM: Dec 03 2024 12:51PM LDX 5213 - XR KNEE SURVEY 1V AP CASE / PROCEDURE REASON: multiple diagnoses * * * * Physician Interpretation * * * * EXAMINATION: XR KNEE SURVEY 1V AP CASE, XR KNEE 4V AP/LAT/OBLS LT, XR KNEE 4V AP/LAT/OBLS RT HISTORY: Pt. c/o bilateral knee pain, most pain right knee all through out patella and laterl knee. No trauma. Bilateral primary osteoarthritis of knee Chronic pain of both knees Chronic pain of both knees Chronic pain of both knees. TECHNIQUE: XR KNEE SURVEY 1V AP CASE, XR KNEE 4V AP/LAT/OBLS LT, XR KNEE 4V AP/LAT/OBLS RT Laterality: NOT APPLICABLE (accession [id number]), LEFT (accession [id number]), RIGHT (accession [id number]) Number of different views (projections): 1 (accession [id number]), 4 (accession [id number]), 4 (accession [id number]) M: XB_1 COMPARISON: Radiograph 07/01/2023 and 05/31/2022 RESULT: Right knee: Weightbearing view demonstrates moderate medial tibiofemoral joint space narrowing. This may be somewhat worsened compared to prior. There are mild osteophytic spurs of the lateral tibiofemoral compartment. No fracture, subluxation or sizable joint effusion. There appears to be at least a mild degree of patellofemoral joint space narrowing with peripheral osteophyte. Left knee: Weightbearing view demonstrates mild medial tibiofemoral joint space narrowing. There are peripheral osteophytes of the lateral tibiofemoral compartment. No fracture, subluxation or sizable joint effusion. Minimal appearing osteophytosis of the patellofemoral joint. No other significant abnormality. IMPRESSION IMPRESSION: Degenerative changes as detailed above. No acute osseous abnormality. Hot Man: VINNY Transcribe Date/Time: Dec 07 2024 9:30A Dictated by : GLENDY GALAVIZ MD This examination was interpreted and the report reviewed and electronically signed by: GLENDY GALAVIZ MD on Dec 07 2024 9:33AM [facility] XR Knee - left AP and Latera l and obliqueon 12-07-2024 * * *Final Report* * * DATE OF EXAM: Dec 03 2024 12:51PM LDX 5204 - XR KNEE 4V AP/LAT/OBLS LT / PROCEDURE REASON: multiple diagnoses * * * * Physician Interpretation * * * * EXAMINATION: XR KNEE SURVEY 1V AP CASE, XR KNEE 4V AP/LAT/OBLS LT, XR KNEE 4V AP/LAT/OBLS RT HISTORY: Pt. c/o bilateral knee pain, most pain right knee all through out patella and laterl knee. No trauma. Bilateral primary osteoarthritis of knee Chronic pain of both knees Chronic pain of both knees Chronic pain of both knees. TECHNIQUE: XR KNEE SURVEY 1V AP CASE, XR KNEE 4V AP/LAT/OBLS LT, XR KNEE 4V AP/LAT/OBLS RT Laterality: NOT APPLICABLE (accession [id number]), LEFT (accession [id number]), RIGHT (accession [id number]) Number of different views (projections): 1 (accession [id number]), 4 (accession [id number]), 4 (accession [id number]) M: XB_1 COMPARISON: Radiograph 07/01/2023 and 05/31/2022 RESULT: Right knee: Weightbearing view demonstrates moderate medial tibiofemoral joint space narrowing. This may be somewhat worsened compared to prior. There are mild osteophytic spurs of the lateral tibiofemoral compartment. No fracture, subluxation or sizable joint effusion. There appears to be at least a mild degree of patellofemoral joint space narrowing with peripheral osteophyte. Left knee: Weightbearing view demonstrates mild medial tibiofemoral joint space narrowing. There are peripheral osteophytes of the lateral tibiofemoral compartment. No fracture, subluxation or sizable joint effusion. Minimal appearing osteophytosis of the patellofemoral joint. No other significant abnormality. [employer] [facility] Provider, [facility] - 12/07/2024 * * *Final Report* * * DATE OF EXAM: Dec 03 2024 12:51PM LDX 5204 - XR KNEE 4V AP/LAT/OBLS LT / PROCEDURE REASON: multiple diagnoses * * * * Physician Interpretation * * * * EXAMINATION: XR KNEE SURVEY 1V AP CASE, XR KNEE 4V AP/LAT/OBLS LT, XR KNEE 4V AP/LAT/OBLS RT HISTORY: Pt. c/o bilateral knee pain, most pain right knee all through out patella and laterl knee. No trauma. Bilateral primary osteoarthritis of knee Chronic pain of both knees Chronic pain of both knees Chronic pain of both knees. TECHNIQUE: XR KNEE SURVEY 1V AP CASE, XR KNEE 4V AP/LAT/OBLS LT, XR KNEE 4V AP/LAT/OBLS RT Laterality: NOT APPLICABLE (accession [id number]), LEFT (accession [id number]), RIGHT (accession [id number]) Number of different views (projections): 1 (accession [id number]), 4 (accession [id number]), 4 (accession [id number]) M: XB_1 COMPARISON: Radiograph 07/01/2023 and 05/31/2022 RESULT: Right knee: Weightbearing view demonstrates moderate medial tibiofemoral joint space narrowing. This may be somewhat worsened compared to prior. There are mild osteophytic spurs of the lateral tibiofemoral compartment. No fracture, subluxation or sizable joint effusion. There appears to be at least a mild degree of patellofemoral joint space narrowing with peripheral osteophyte. Left knee: Weightbearing view demonstrates mild medial tibiofemoral joint space narrowing. There are peripheral osteophytes of the lateral tibiofemoral compartment. No fracture, subluxation or sizable joint effusion. Minimal appearing osteophytosis of the patellofemoral joint. No other significant abnormality. IMPRESSION IMPRESSION: Degenerative changes as detailed above. No acute osseous abnormality. Hot Man: PSCB Transcribe Date/Time: Dec 07 2024 9:30A Dictated by : GLENDY GALAVIZ MD This examination was interpreted and the report reviewed and electronically signed by: GLENDY GALAVIZ MD on Dec 07 2024 9:33AM [facility] XR Knee - right AP and Later al and obliqueon 12-07-2024 * * *Final Report* * * DATE OF EXAM: Dec 03 2024 12:51PM LDX 5205 - XR KNEE 4V AP/LAT/OBLS RT / PROCEDURE REASON: multiple diagnoses * * * * Physician Interpretation * * * * EXAMINATION: XR KNEE SURVEY 1V AP CASE, XR KNEE 4V AP/LAT/OBLS LT, XR KNEE 4V AP/LAT/OBLS RT HISTORY: Pt. c/o bilateral knee pain, most pain right knee all through out patella and laterl knee. No trauma. Bilateral primary osteoarthritis of knee Chronic pain of both knees Chronic pain of both knees Chronic pain of both knees. TECHNIQUE: XR KNEE SURVEY 1V AP CASE, XR KNEE 4V AP/LAT/OBLS LT, XR KNEE 4V AP/LAT/OBLS RT Laterality: NOT APPLICABLE (accession [id number]), LEFT (accession [id number]), RIGHT (accession [id number]) Number of different views (projections): 1 (accession [id number]), 4 (accession [id number]), 4 (accession [id number]) M: XB_1 COMPARISON: Radiograph 07/01/2023 and 05/31/2022 RESULT: Right knee: Weightbearing view demonstrates moderate medial tibiofemoral joint space narrowing. This may be somewhat worsened compared to prior. There are mild osteophytic spurs of the lateral tibiofemoral compartment. No fracture, subluxation or sizable joint effusion. There appears to be at least a mild degree of patellofemoral joint space narrowing with peripheral osteophyte. Left knee: Weightbearing view demonstrates mild medial tibiofemoral joint space narrowing. There are peripheral osteophytes of the lateral tibiofemoral compartment. No fracture, subluxation or sizable joint effusion. Minimal appearing osteophytosis of the patellofemoral joint. No other significant abnormality. [facility] Provider, [facility] - 12/07/2024 * * *Final Report* * * DATE OF EXAM: Dec 03 2024 12:51PM LDX 5205 - XR KNEE 4V AP/LAT/OBLS RT / PROCEDURE REASON: multiple diagnoses * * * * Physician Interpretation * * * * EXAMINATION: XR KNEE SURVEY 1V AP CASE, XR KNEE 4V AP/LAT/OBLS LT, XR KNEE 4V AP/LAT/OBLS RT HISTORY: Pt. c/o bilateral knee pain, most pain right knee all through out patella and laterl knee. No trauma. Bilateral primary osteoarthritis of knee Chronic pain of both knees Chronic pain of both knees Chronic pain of both knees. TECHNIQUE: XR KNEE SURVEY 1V AP CASE, XR KNEE 4V AP/LAT/OBLS LT, XR KNEE 4V AP/LAT/OBLS RT Laterality: NOT APPLICABLE (accession [id number]), LEFT (accession [id number]), RIGHT (accession [id number]) Number of different views (projections): 1 (accession [id number]), 4 (accession [id number]), 4 (accession [id number]) M: XB_1 COMPARISON: Radiograph 07/01/2023 and 05/31/2022 RESULT: Right knee: Weightbearing view demonstrates moderate medial tibiofemoral joint space narrowing. This may be somewhat worsened compared to prior. There are mild osteophytic spurs of the lateral tibiofemoral compartment. No fracture, subluxation or sizable joint effusion. There appears to be at least a mild degree of patellofemoral joint space narrowing with peripheral osteophyte. Left knee: Weightbearing view demonstrates mild medial tibiofemoral joint space narrowing. There are peripheral osteophytes of the lateral tibiofemoral compartment. No fracture, subluxation or sizable joint effusion. Minimal appearing osteophytosis of the patellofemoral joint. No other significant abnormality. IMPRESSION IMPRESSION: Degenerative changes as detailed above. No acute osseous abnormality. Hot Man: VINNY Transcribe Date/Time: Dec 07 2024 9:30A Dictated by : GLENDY GALAVIZ MD This examination was interpreted and the report reviewed and electronically signed by: GLENDY GALAVIZ MD on Dec 07 2024 9:33AM EST [facility] CNOVon 12-03-2024 CNOV Office Visit (AGFAMP MARLIN) -------- JUDSON DE LA CRUZ ([id number]) 1980 F Date Time Provider Department 12/03/24 10:40 AM COMFORT CLEMENT During your visit today, we recorded the following information about you: Pulse Blood pressure Weight Height 81/minute 122/76 106.1 kg 1.455 m Comfort Clement APRN.COMMUNITY LIAISON 12/27/2024 8:35 AM Signed Subjective Judson De La Cruz is a 44 year old female with a history of chronic knee and back pain, presenting for follow-up on elevated liver enzymes and management of chronic pain. I reviewed past medical, surgical, social, and family histories today and updated chart. Allergies, chronic medications, and supplements were also reviewed. The patient consented to the use of ambient AwayFind software for draft documentation of the visit consistent with [facility]?s Notice of Privacy Practices. HPI Judson reports persistent, debilitating pain in both knees and lower back, which she describes as chronic and constant. The pain is exacerbated by physical activity, such as walking, climbing stairs, and performing hurricane tracker, and is associated with cracking and popping sounds in the knees. She also experiences difficulty sleeping due to the pain and reports getting winded and experiencing dyspnea during activities. Judson has a history of significant arthritis in both knees, with a previous injury to the left knee resulting in torn ligaments, tendons, muscles, and cartilage. She has been told that her knees are bone on bone with no remaining cartilage. She has also been diagnosed with spondylolysis, spondylolisthesis, and degenerative disc disease in the lower back, confirmed by an x-ray in October 2023. Judson has tried various treatments for her pain, including physical therapy in 2022, which she could not continue due to severe pain, and six months of injections to kill the nerve endings for the sciatica, which were ineffective and painful. She has not had an MRI of her back but has had an MRI of her left knee. She has also tried CBD cream for her knee pain, which she found helpful, but is unable to purchase it due to restrictions in her current living situation. She has a low threshold for pain and is reluctant to undergo further injections, particularly in her knees, due to previous painful experiences. Judson reports significant stress related to her living situation, which involves frequent use of stairs and a noisy environment that disrupts her sleep. She is actively seeking alternative housing that is wheelchair and scooter accessible. She also reports difficulty with activities of daily living, such as showering and cleaning, due to her pain. She has been trying to lose weight and has made dietary changes, including smaller portions, cutting back on bread, and using a protein shake. She has lost a couple of pounds but finds it challenging due to the high-carb diet in her current living situation. She denies a history of liver issues but reports that her mother had a dark spot on her liver. 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 Hemorrhoids 03/18/2018 Herpes zoster 03/14/2024 Hyperlipidemia Hypothyroid 08/21/1998 Irregular menses Knee pain 03/14/2024 Comment on above: KNEE PAIN Major depressive disorder, recurrent, moderate (HCC) 05/23/2023 Muscle spasms of neck 03/14/2024 Muscle weakness 11/17/2023 Muscle weakness (generalized) 11/17/2023 Obesity Other intervertebral disc degeneration, lumbar region 11/03/2023 Other specified diseases of anus and rectum 09/04/2023 Pain in joint, multiple sites 11/17/2023 Pain in right hip 12/06/2022 Pain in unspecified joint 11/17/2023 Papanicolaou smear of cervix with atypical squamous cells cannot exclude high grade squamous intraepithelial lesion (ASC-H) 03/14/2024 Pleurodynia 07/10/2023 Polycystic disease, ovaries Radiculopathy, cervical region 11/03/2023 Rash 03/14/2024 Somatic dysfunction of cervical region 03/14/2024 Somatic dysfunction of head region 03/14/2024 Spasm of cervical paraspinous muscle 03/14/2024 Strain of hamstring muscle 03/14/2024 Tension type headache 03/14/2024 Type 2 diabetes mellitus without complications (HCC) 12/06/2022 Vaginal odor 03/14/2024 PAST SURGICAL HISTORY Procedure Laterality Date CHOLECYSTECTOMY ORAL SURGERY PROCEDURE all teeth pulled REMOVAL GALLBLADDER wisdom teeth ALLERGIES Adhesi (more content not included)... Normal [facility] Ferritin SerPl-mCncon 2024 Ferritin [Mass/Vol] 34.2 ng/mL Normal 14.7-205.1 [facility] Comment on above: Order Comment: Speci men Type: BLOOD SPECIMENOrdering Facility: [facility] Address: [address] [place] [address] Performed By: #### 2 324-2, 2276-4 ####[facility]ORATORYCLIA [id number] [address] [place] GGT SerPl-cCncon 12-03-2024 Gamma glutamyl transferase [Catalytic activity/Vol] 34 U/L Normal 6-46 [facility] Comment on above: Order Comment: Speci men Type: BLOOD SPECIMENOrdering Facility: [facility] Address: [address] [place] [address] Performed By: #### 2 324-2, 2276-4 ####[facility]ORATORYCLIA [id number] [place] [address] [place] Hepatic function 2000 panelo n 12-03-2024 Albumin [Mass/Vol] 4.3 g/dL Normal 3.9-4.9 [facility] Comment on above: Order Comment: Speci men Type: BLOOD SPECIMENOrdering Facility: [facility] Address: [address] [place] [address] Performed By: #### 2 4325-3, 78249-0 ####[facility] [place] LABCLIA [id number] [place] [address] [place] ALP [Catalytic activity/Vol] 88 U/L Normal 34-123 [facility] Comment on above: Order Comment: Speci men Type: BLOOD SPECIMENOrdering Facility: [facility] Address: [address] [place] [address] Performed By: #### 2 4325-3, 79955-2 ####[facility] [place] LABCLIA [id number] [place] [address] [place] ALT With P-5'-P [Catalytic activity/Vol] 56 U/L High 7-38 [facility] Comment on above: Order Comment: Speci men Type: BLOOD SPECIMENOrdering Facility: [facility] Address: [address] [place] [address] Performed By: #### 2 4325-3, 83219-7 ####[facility] [place] LABCLIA [id number] [place] [address] [place] AST With P-5'-P [Catalytic activity/Vol] 37 U/L High 13-35 [facility] Comment on above: Order Comment: Speci men Type: BLOOD SPECIMENOrdering Facility: [facility] Address: [address] [place] [address] Performed By: #### 2 4325-3, 53141-6 ####[facility] [place] LABCLIA [id number] [facility] [place] [address] [facility] [place] Bilirubin [Mass/Vol] 0.4 mg/dL Normal 0.2-1.3 [facility] Comment on above: Order Comment: Speci men Type: BLOOD SPECIMENOrdering Facility: [facility] Address: [address] [place] [address] Performed By: #### 2 4325-3, 08129-0 ####[facility] [place] LABCLIA [id number] [facility] [place] [address] [facility] Bilirubin.direct [Mass/Vol] 0.1 mg/dL Normal <0.3 [facility] Comment on above: Order Comment: Speci men Type: BLOOD SPECIMENOrdering Facility: [facility] Address: [address] [place] [address] Performed By: #### 2 4325-3, 76584-8 ####[facility] [place] LABCLIA [id number] [place] [address] [facility] [place] Protein [Mass/Vol] 6.8 g/dL Normal 6.3-8.0 [facility] Comment on above: Order Comment: Speci men Type: BLOOD SPECIMENOrdering Facility: [facility] Address: [address] [place] [address] Performed By: #### 2 4325-3, 22687-6 ####[facility] [place] LABCLIA [id number] [place] [address] [facility] Lipid 1996 panelon 5 Cholesterol [Mass/Vol] 122 mg/dL Normal <200 [facility] Comment on above: Order Comment: Speci men Type: BLOOD SPECIMENOrdering Facility: [facility] Address: [address] [place] [address] Result Comment: <200 mg/dL, Desirable 200-239 mg/dL, Borderline high >239 mg/dL, High Performed By: #### 2 4325-3, 27665-1 ####[facility] [place] LABCLIA [id number] [place] [address] [facility] [place] Cholesterol in HDL [Mass/Vol] 39 mg/dL Low >39 [facility] Comment on above: Order Comment: Speci men Type: BLOOD SPECIMENOrdering Facility: [facility] Address: [address] [place] [address] Result Comment: 40-5 9 mg/dL, Acceptable >59 mg/dL, High: Negative risk factor for coronary heart disease <40 mg/dL, Low: Positive risk factor for coronary heart disease Performed By: #### 2 4325-3, 95661-8 ####[facility] [place] LABCLIA [id number] [place] [address] [facility] [place] Cholesterol in LDL [Mass/Vol] 53 mg/dL Normal <100 [facility] Comment on above: Order Comment: Speci men Type: BLOOD SPECIMENOrdering Facility: [facility] Address: [address] [place] [address] Result Comment: <100 mg/dL, Optimal 100-129 mg/dL, Near optimal/above optimal 130-159 mg/dL, Borderline high 160-189 mg/dL, High >189 mg/dL, Very high Secondary prevention optimal LDL Cholesterol levels are recommended to be < 70 mg/dL Performed By: #### 2 4325-3, 66910-7 ####[employer] [facility] [place] LABCLIA [id number] [place] [address] [facility] Cholesterol in LDL/Cholesterol in HDL [Mass ratio] 1.36 {ratio} Normal <2.54 [facility] Comment on above: Order Comment: Fernandez mandi Type: BLOOD SPECIMENOrdering Facility: [facility] Address: [address] [place] [address] Result Comment: Refe rence: 1. National Cholesterol Education Program ATP III Guideline At-A-Glance Quick Desk Reference: National Heart, Lung, and Blood [place]. National Institutes of Health. 2001: NIH Publication No. 01-3305. 2. An International Atherosclerosis Society position paper: global recommendations for the management of dyslipidemia: executive summary, Atherosclerosis. 2014: 232(2):410-413. Performed By: #### 2 4325-3, 38666-0 ####[facility] [place] LABCLIA [id number] [place] [address] [facility] [place] Cholesterol in VLDL [Mass/Vol] 30 mg/dL High <30 [facility] Comment on above: Order Comment: Fernandez mandi Type: BLOOD SPECIMENOrdering Facility: [facility] Address: [address] [place] [address] Performed By: #### 2 4325-3, 32206-6 ####[facility] [place] LABCLIA [id number] [place] [address] [facility] [place] Cholesterol non HDL [Mass/Vol] 83 mg/dL Normal <130 [facility] Comment on above: Order Comment: Rogeri mandi Type: BLOOD SPECIMENOrdering Facility: [facility] Address: [address] [place] [address] Result Comment: <130 mg/dL, Optimal 130-159 mg/dL, Near optimal/above optimal 160-189 mg/dL, Borderline high 190-219 mg/dL, High >219 mg/dL, Very high Secondary prevention optimal non HDL Cholesterol levels are recommended to be <100 mg/dL Performed By: #### 2 4325-3, 15507-6 ####[facility] [place] LABCLIA [id number] [place] [address] [facility] Cholesterol.total/Cho lesterol in HDL [Mass ratio] 3.13 {ratio} Normal <5.10 [facility] Comment on above: Order Comment: Speci men Type: BLOOD SPECIMENOrdering Facility: [facility] Address: [address] [place] [address] Performed By: #### 2 4325-3, 51308-0 ####[facility] [place] LABCLIA [id number] [place] [address] [facility] FASTING TIME 12 hrs Normal [facility] Comment on above: Order Comment: Speci men Type: BLOOD SPECIMENOrdering Facility: [facility] Address: [address] [place] [address] Performed By: #### 2 4325-3, 54869-2 ####[facility] LABCLIA [id number] [place] [address] [facility] Triglyceride [Mass/Vol] 148 mg/dL Normal <150 [facility] Comment on above: Order Comment: Speci men Type: BLOOD SPECIMENOrdering Facility: [facility] Address: [address] [place] [address] Result Comment: <150 mg/dL, Normal 150-199 mg/dL, Borderline high 200-499 mg/dL, High >499 mg/dL, Very high Performed By: #### 2 4325-3, 26536-1 ####[facility] [place] LABCLIA [id number] [place] [address] [facility] No Panel Informationon 12-03 Radiology Study observation (narrative) [facility] XR KNEE 4V AP/LAT/OBLS LTon 12-03-2024 XR KNEE 4V AP/LAT/OBLS LT * * *Final Report* * * DATE OF EXAM: Dec 03 2024 12:51PM LDX 5204 - XR KNEE 4V AP/LAT/OBLS LT / PROCEDURE REASON: multiple diagnoses * * * * Physician Interpretation * * * * EXAMINATION: XR KNEE SURVEY 1V AP CASE, XR KNEE 4V AP/LAT/OBLS LT, XR KNEE 4V AP/LAT/OBLS RT HISTORY: Pt. c/o bilateral knee pain, most pain right knee all through out patella and laterl knee. No trauma. Bilateral primary osteoarthritis of knee Chronic pain of both knees Chronic pain of both knees Chronic pain of both knees. TECHNIQUE: XR KNEE SURVEY 1V AP CASE, XR KNEE 4V AP/LAT/OBLS LT, XR KNEE 4V AP/LAT/OBLS RT Laterality: NOT APPLICABLE (accession [id number]), LEFT (accession [id number]), RIGHT (accession [id number]) Number of different views (projections): 1 (accession [id number]), 4 (accession [id number]), 4 (accession [id number]) M: XB_1 COMPARISON: Radiograph 07/01/2023 and 05/31/2022 RESULT: Right knee: Weightbearing view demonstrates moderate medial tibiofemoral joint space narrowing. This may be somewhat worsened compared to prior. There are mild osteophytic spurs of the lateral tibiofemoral compartment. No fracture, subluxation or sizable joint effusion. There appears to be at least a mild degree of patellofemoral joint space narrowing with peripheral osteophyte. Left knee: Weightbearing view demonstrates mild medial tibiofemoral joint space narrowing. There are peripheral osteophytes of the lateral tibiofemoral compartment. No fracture, subluxation or sizable joint effusion. Minimal appearing osteophytosis of the patellofemoral joint. No other significant abnormality. IMPRESSION: Degenerative changes as detailed above. No acute osseous abnormality. Hot [facility] Transcribe Date/Time: Dec 07 2024 9:30A Dictated by : GLENDY GALAVIZ MD This examination was interpreted and the report reviewed and electronically signed by: GLENDY GALAVIZ MD on Dec 07 2024 9:33AM EST [id number] Normal [facility] XR KNEE 4V AP/LAT/OBLS RTon 12-03-2024 XR KNEE 4V AP/LAT/OBLS RT * * *Final Report* * * DATE OF EXAM: Dec 03 2024 12:51PM LDX 5205 - XR KNEE 4V AP/LAT/OBLS RT / PROCEDURE REASON: multiple diagnoses * * * * Physician Interpretation * * * * EXAMINATION: XR KNEE SURVEY 1V AP CASE, XR KNEE 4V AP/LAT/OBLS LT, XR KNEE 4V AP/LAT/OBLS RT HISTORY: Pt. c/o bilateral knee pain, most pain right knee all through out patella and laterl knee. No trauma. Bilateral primary osteoarthritis of knee Chronic pain of both knees Chronic pain of both knees Chronic pain of both knees. TECHNIQUE: XR KNEE SURVEY 1V AP CASE, XR KNEE 4V AP/LAT/OBLS LT, XR KNEE 4V AP/LAT/OBLS RT Laterality: NOT APPLICABLE (accession [id number]), LEFT (accession [id number]), RIGHT (accession [id number]) Number of different views (projections): 1 (accession [id number]), 4 (accession [id number]), 4 (accession [id number]) M: XB_1 COMPARISON: Radiograph 07/01/2023 and 05/31/2022 RESULT: Right knee: Weightbearing view demonstrates moderate medial tibiofemoral joint space narrowing. This may be somewhat worsened compared to prior. There are mild osteophytic spurs of the lateral tibiofemoral compartment. No fracture, subluxation or sizable joint effusion. There appears to be at least a mild degree of patellofemoral joint space narrowing with peripheral osteophyte. Left knee: Weightbearing view demonstrates mild medial tibiofemoral joint space narrowing. There are peripheral osteophytes of the lateral tibiofemoral compartment. No fracture, subluxation or sizable joint effusion. Minimal appearing osteophytosis of the patellofemoral joint. No other significant abnormality. IMPRESSION: Degenerative changes as detailed above. No acute osseous abnormality. Hot Man: PSCB Transcribe Date/Time: Dec 07 2024 9:30A Dictated by : GLENDY GALAVIZ MD This examination was interpreted and the report reviewed and electronically signed by: GLENDY GALAVIZ MD on Dec 07 2024 9:33AM EST [id number] Normal [facility] XR KNEE SURVEY 1V AP BILon 0 12-03-2024 XR KNEE SURVEY 1V AP CASE * * *Final Report* * * DATE OF EXAM: Dec 03 2024 12:51PM LDX 5213 - XR KNEE SURVEY 1V AP CASE / PROCEDURE REASON: multiple diagnoses * * * * Physician Interpretation * * * * EXAMINATION: XR KNEE SURVEY 1V AP CASE, XR KNEE 4V AP/LAT/OBLS LT, XR KNEE 4V AP/LAT/OBLS RT HISTORY: Pt. c/o bilateral knee pain, most pain right knee all through out patella and laterl knee. No trauma. Bilateral primary osteoarthritis of knee Chronic pain of both knees Chronic pain of both knees Chronic pain of both knees. TECHNIQUE: XR KNEE SURVEY 1V AP CASE, XR KNEE 4V AP/LAT/OBLS LT, XR KNEE 4V AP/LAT/OBLS RT Laterality: NOT APPLICABLE (accession [id number]), LEFT (accession [id number]), RIGHT (accession [id number]) Number of different views (projections): 1 (accession [id number]), 4 (accession [id number]), 4 (accession [id number]) M: XB_1 COMPARISON: Radiograph 07/01/2023 and 05/31/2022 RESULT: Right knee: Weightbearing view demonstrates moderate medial tibiofemoral joint space narrowing. This may be somewhat worsened compared to prior. There are mild osteophytic spurs of the lateral tibiofemoral compartment. No fracture, subluxation or sizable joint effusion. There appears to be at least a mild degree of patellofemoral joint space narrowing with peripheral osteophyte. Left knee: Weightbearing view demonstrates mild medial tibiofemoral joint space narrowing. There are peripheral osteophytes of the lateral tibiofemoral compartment. No fracture, subluxation or sizable joint effusion. Minimal appearing osteophytosis of the patellofemoral joint. No other significant abnormality. IMPRESSION: Degenerative changes as detailed above. No acute osseous abnormality. Hot Man: PSCB Transcribe Date/Time: Dec 07 2024 9:30A Dictated by : GLENDY GALAVIZ MD This examination was interpreted and the report reviewed and electronically signed by: GLENDY GALAVIZ MD on Dec 07 2024 9:33AM EST [id number] Normal [facility] CNTHERAPYon 11-13-2024 CNTHERAPY OT/PT/Speech Visit (PTLHO) -------- JUDSON DE LA CRUZ ([id number]) 1980 F Date Time Provider Department 11/13/24 3:45 PM MARIELLE ADEN Date Time Provider Department [place] 11/13/2024 3:45 PM [id number], BRETT MATT [facility] Reason for Visit: Functional Capacity Eval [3549] PT Discharge [752] Visit Diagnoses:Degeneration of intervertebral disc of lumbar region with discogenic back pain and lower extremity pain [M51.362] Primary osteoarthritis of both knees [M17.0] Decreased mobility [R26.89] Allergies As of Date: 11/13/2024 Noted Allergy Reaction ADHESIVE TAPE (ROSINS) 03/14/2024 14 - Other: See Comments ADHESIVE TAPE-SILICONES 12/09/2021 2 - Rash CEPHALEXIN 12/09/2021 2 - Rash DOXYCYCLINE 03/06/2017 4 - Hives 14 - Other: See Comments 2 - Rash Comments: Patient c/o dizziness, rash and then hives HYDROCODONE-ACETAMINOPHE N 09/24/2009 14 - Other: See Comments HYDROCODONE-GUAIFENESIN 03/14/2024 16 - Unknown SULFA (SULFONAMIDE ANTIBIOTICS) 12/09/2021 4 - Hives 14 - Other: See Comments 16 - Unknown SULFAMETHOXAZOLE 12/09/2021 8 - GI Upset Date Reviewed: 10/19/2024 Reviewed by: Comfort Clement APRN.COMMUNITY LIAISON - Fully Assessed Prescriptions as of 11/13/2024 - diphenhydrAMINE (BENADRYL) 25 mg capsule Take 1 capsule by mouth every 6 hours as needed for cold/allergy symptoms. - BONINE 25 mg chewable tablet(s) Take 25 mg by mouth three times a day as needed. - omega-3 fatty acids/fish oil (FISH OIL-OMEGA-3 FATTY ACIDS) 300-1,000 mg cap - cholecalciferol (VITAMIN D-3) 50 mcg (2,000 unit) tablet Take 2 tablets by mouth once daily. - albuterol HFA (PROVENTIL HFA, VENTOLIN HFA) 90 mcg/actuation inhaler Inhale 2 Puffs as instructed every 4 hours as needed for wheezing/shortness of breath. - atorvastatin (LIPITOR) 40 mg tablet Take 1 tablet by mouth daily at bedtime. - cyanocobalamin (VITAMIN B-12) 500 mcg tablet Take 1 tablet by mouth once daily. - acetaminophen (TYLENOL) 325 mg tablet Take 2 tablets by mouth every 6 hours as needed for pain or fever (specify temp.) (Fever of over 100.4). - levothyroxine (SYNTHROID) 100 mcg tablet Take 1 tablet by mouth once daily. - metFORMIN (GLUCOPHAGE) 500 mg tablet Take 1 tablet by mouth two times a day. - triamcinolone acetonide (KENALOG) 0.1 % cream Apply to affected area two times a day. - meloxicam (MOBIC) 15 mg tablet Take 1 tablet by mouth once daily. - cyclobenzaprine (FLEXERIL) 5 mg tablet Take 1 tablet by mouth two times a day as needed. - azithromycin (ZITHROMAX Z-DONALD) 250 mg tablet 2 tablets by mouth first day then 1 tablet the next 4 days [facility] 11-08-2024 [facility] Telephone (KAREN) -------- JUDSON DE LA CRUZ ([id number]) 1980 F Date Time Provider Department 11/08/24 COMFORT CLEMENT During your visit today, we recorded the following information about you: Emily Hicks MA 11/08/2024 7:32 AM Signed ----- Message from Carmella Albrecht MA sent at 10/11/2024 2:02 PM EST ----- Patient due for 1 month recheck LFT. NEHA Sanz Kristin C, APRN.[facility] 11/08/2024 9:11 PM Signed Thank you. Please see jeni. DIONISIO Johnson Kristin C, APRN.CNP 11/08/2024 9:11 PM Signed Addended by: COMFORT CLEMENT on: 11/08/2024 09:11 PM Modules accepted: Emily Doan MA 11/11/2024 3:08 PM Signed Left message informing patient, phone number to reach the office was left for any questions or concerns. Emily Hicks MA Allergies As of Date: 11/08/2024 Noted Allergy Reaction ADHESIVE TAPE (ROSINS) 03/14/2024 14 - Other: See Comments ADHESIVE TAPE-SILICONES 12/09/2021 2 - Rash CEPHALEXIN 12/09/2021 2 - Rash DOXYCYCLINE 03/06/2017 4 - Hives 14 - Other: See Comments 2 - Rash Comments: Patient c/o dizziness, rash and then hives HYDROCODONE-ACETAMINOPHE N 09/24/2009 14 - Other: See Comments HYDROCODONE-GUAIFENESIN 03/14/2024 16 - Unknown SULFA (SULFONAMIDE ANTIBIOTICS) 12/09/2021 4 - Hives 14 - Other: See Comments 16 - Unknown SULFAMETHOXAZOLE 12/09/2021 8 - GI Upset Date Reviewed: 10/19/2024 Reviewed by: Comfort Clement APRN.CNP - Fully Assessed Reason for Visit: Lab Orders [1688] Primary Visit Diagnosis:Elevated liver enzymes [R74.8] Order(s):FERRITIN [SQFERR] Order #: [id number] FUTURE GGT [SQGGT] Order #: [id number] FUTURE HEPATIC FUNCTION PNL [SQHFP] Order #: [id number] FUTURE Prescriptions as of 11/11/2024 - diphenhydrAMINE (BENADRYL) 25 mg capsule Take 1 capsule by mouth every 6 hours as needed for cold/allergy symptoms. - BONINE 25 mg chewable tablet(s) Take 25 mg by mouth three times a day as needed. - omega-3 fatty acids/fish oil (FISH OIL-OMEGA-3 FATTY ACIDS) 300-1,000 mg cap - cholecalciferol (VITAMIN D-3) 50 mcg (2,000 unit) tablet Take 2 tablets by mouth once daily. - albuterol HFA (PROVENTIL HFA, VENTOLIN HFA) 90 mcg/actuation inhaler Inhale 2 Puffs as instructed every 4 hours as needed for wheezing/shortness of breath. - atorvastatin (LIPITOR) 40 mg tablet Take 1 tablet by mouth daily at bedtime. - cyanocobalamin (VITAMIN B-12) 500 mcg tablet Take 1 tablet by mouth once daily. - acetaminophen (TYLENOL) 325 mg tablet Take 2 tablets by mouth every 6 hours as needed for pain or fever (specify temp.) (Fever of over 100.4). - levothyroxine (SYNTHROID) 100 mcg tablet Take 1 tablet by mouth once daily. - metFORMIN (GLUCOPHAGE) 500 mg tablet Take 1 tablet by mouth two times a day. - triamcinolone acetonide (KENALOG) 0.1 % cream Apply to affected area two times a day. - meloxicam (MOBIC) 15 mg tablet Take 1 tablet by mouth once daily. - cyclobenzaprine (FLEXERIL) 5 mg tablet Take 1 tablet by mouth two times a day as needed. - azithromycin (ZITHROMAX Z-DONALD) 250 mg tablet 2 tablets by mouth first day then 1 tablet the next 4 days Problem List As Of Date 11/08/2024 Noted Resolved Type 2 diabetes mellitus without complication, * Hypothyroid [E03.9] Irregular Menses [N92.6] PCOD (polycystic ovarian disease) [E28.2] 05/25/2016 Hyperlipidemia [E78.5] 05/25/2016 Gallstones [K80.20] Dysmetabolic Syndrome [E88.810] Obesity [E66.9] Depression [F32.A] Vitamin D deficiency [E55.9] 08/30/2010 Hypothyroidism [E03.9] 04/11/2018 Obesity, Class III, BMI 40-49.9 (morbid obesity*12/09/2021 Impaired fasting glucose [R73.01] 12/29/2021 Cervical radiculopathy [M54.12] 11/03/2023 Lumbar radiculopathy [M54.16] 11/03/2023 DDD (degenerative disc disease), lumbar [M51.36*11/03/2023 Muscle weakness [M62.81] 11/17/2023 02/19/2024 Pain in joint, multiple sites [M25.50] 11/17/2023 02/19/2024 Acute traumatic internal derangement of left kn*03/14/2024 03/14/2024 Abnormal uterine bleeding [N93.9] 03/14/2024 Acute cough [R05.1] 07/10/2023 03/14/2024 Acute sinusitis [J01.90] 03/14/2024 03/14/2024 Allergic rhinitis [J30.9] 03/14/2024 03/14/2024 Ankle pain [M25.579] 03/14/2024 03/14/2024 Constipation [K59.00] 03/14/2024 03/14/2024 Derangement of left knee [M23.92] 03/14/2024 03/14/2024 Diarrhea [R19.7] 08/04/2023 03/14/2024 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 Normal [facility] Wendi 11-04-2024 MAHIN Telephone (KAREN) -------- JUDSON DE LA CRUZ ([id number]) 1980 F Date Time Provider Department 11/04/24 COMFORT CLEMENT During your visit today, we recorded the following information about you: Sebastian Bansal MA 11/04/2024 10:59 AM Signed Patient lm on requesting CBD cream for her knee pain. And benadryl for allergies to be sent to pharmacy. Please advise. Sebastian PhanangelaNEHA Kristin C, APRN.CNP 11/04/2024 12:13 PM Signed Please let patient know I do not prescribe CBD cream I can send in benadryl for her. She should not take both benadryl and Bonine (meclizine) on the same day. DIONISIO Johnson Kristin C, APRN.CNP 11/04/2024 12:13 PM Signed Addended by: COMFORT CLEMENT on: 11/04/2024 12:13 PM Modules accepted: Emily Doan MA 11/04/2024 1:11 PM Signed Left message informing patient, phone number to reach the office was left for any questions or concerns. Emily Hicks MA Allergies As of Date: 11/04/2024 Noted Allergy Reaction ADHESIVE TAPE (ROSINS) 03/14/2024 14 - Other: See Comments ADHESIVE TAPE-SILICONES 12/09/2021 2 - Rash CEPHALEXIN 12/09/2021 2 - Rash DOXYCYCLINE 03/06/2017 4 - Hives 14 - Other: See Comments 2 - Rash Comments: Patient c/o dizziness, rash and then hives HYDROCODONE-ACETAMINOPHE N 09/24/2009 14 - Other: See Comments HYDROCODONE-GUAIFENESIN 03/14/2024 16 - Unknown SULFA (SULFONAMIDE ANTIBIOTICS) 12/09/2021 4 - Hives 14 - Other: See Comments 16 - Unknown SULFAMETHOXAZOLE 12/09/2021 8 - GI Upset Date Reviewed: 10/19/2024 Reviewed by: Comfort Clement APRN.COMMUNITY LIAISON - Fully Assessed Reason for Visit: Patient Question [1477] Primary Visit Diagnosis:Environmental allergies [Z91.09] Order(s):diphenhydrAMINE (BENADRYL) 25 mg capsuleTake 1 capsule by mouth every 6 hours as needed for cold/allergy symptoms.Disp: 45 capsuleRfl: 2 Prescriptions as of 11/04/2024 - diphenhydrAMINE (BENADRYL) 25 mg capsule Take 1 capsule by mouth every 6 hours as needed for cold/allergy symptoms. - BONINE 25 mg chewable tablet(s) Take 25 mg by mouth three times a day as needed. - omega-3 fatty acids/fish oil (FISH OIL-OMEGA-3 FATTY ACIDS) 300-1,000 mg cap - cholecalciferol (VITAMIN D-3) 50 mcg (2,000 unit) tablet Take 2 tablets by mouth once daily. - albuterol HFA (PROVENTIL HFA, VENTOLIN HFA) 90 mcg/actuation inhaler Inhale 2 Puffs as instructed every 4 hours as needed for wheezing/shortness of breath. - atorvastatin (LIPITOR) 40 mg tablet Take 1 tablet by mouth daily at bedtime. - cyanocobalamin (VITAMIN B-12) 500 mcg tablet Take 1 tablet by mouth once daily. - acetaminophen (TYLENOL) 325 mg tablet Take 2 tablets by mouth every 6 hours as needed for pain or fever (specify temp.) (Fever of over 100.4). - levothyroxine (SYNTHROID) 100 mcg tablet Take 1 tablet by mouth once daily. - metFORMIN (GLUCOPHAGE) 500 mg tablet Take 1 tablet by mouth two times a day. - triamcinolone acetonide (KENALOG) 0.1 % cream Apply to affected area two times a day. - meloxicam (MOBIC) 15 mg tablet Take 1 tablet by mouth once daily. - cyclobenzaprine (FLEXERIL) 5 mg tablet Take 1 tablet by mouth two times a day as needed. - azithromycin (ZITHROMAX Z-DONALD) 250 mg tablet 2 tablets by mouth first day then 1 tablet the next 4 days Problem List As Of Date 11/04/2024 Noted Resolved Type 2 diabetes mellitus without complication, * Hypothyroid [E03.9] Irregular Menses [N92.6] PCOD (polycystic ovarian disease) [E28.2] 05/25/2016 Hyperlipidemia [E78.5] 05/25/2016 Gallstones [K80.20] Dysmetabolic Syndrome [E88.810] Obesity [E66.9] Depression [F32.A] Vitamin D deficiency [E55.9] 08/30/2010 Hypothyroidism [E03.9] 04/11/2018 Obesity, Class III, BMI 40-49.9 (morbid obesity*12/09/2021 Impaired fasting glucose [R73.01] 12/29/2021 Cervical radiculopathy [M54.12] 11/03/2023 Lumbar radiculopathy [M54.16] 11/03/2023 DDD (degenerative disc disease), lumbar [M51.36*11/03/2023 Muscle weakness [M62.81] 11/17/2023 02/19/2024 Pain in joint, multiple sites [M25.50] 11/17/2023 02/19/2024 Acute traumatic internal derangement of left kn*03/14/2024 03/14/2024 Abnormal uterine bleeding [N93.9] 03/14/2024 Acute cough [R05.1] 07/10/2023 03/14/2024 Acute sinusitis [J01.90] 03/14/2024 03/14/2024 Allergic rhinitis [J30.9] 03/14/2024 03/14/2024 Ankle pain [M25.579] 03/14/2024 03/14/2024 Constipation [K59.00] 03/14/2024 03/14/2024 Derangement of left knee [M23.92] 03/14/2024 03/14/2024 Diarrhea [R19.7] 08/04/2023 03/14/2024 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 The two largest FEV1s were repeatable. Time to Peak Flow greater than ATS/ERS standard, FEV1 may not be valid. FRC is repeatable x3. DLCO is repeatable x2. Breath hold time higher than ATS/ERS guidelines. Medications and Allergies were reviewed for possible drug interactions per policy. No contraindications or sensitivities were noted. Meds taken: No inhaled respiratory medications taken before testing. 2 puffs Albuterol (180 mcg) delivered by MDI via holding chamber. HR pre = 75/min, HR post = 75/min. POST-BRONCHODILATOR: Current ATS/ERS acceptability and repeatability standards for spirometry met. Start of test and EOFE criteria met. IMPRESSION: Spirometry indicates no obstruction. The reduced FVC could indicate restriction, recommend lung volumes for definitive determination. Negative bronchodilator response. The diffusion capacity (uncorrected for hemoglobin) is normal. Decrease in TLC indicates restriction. Low or normal FRC, low ERV, and elevated RV/TLC is consistent with changes in lung volumes due to obesity. Clinical correlation recommended. Electronically Signed On 10-18-2024 17:31:41 EST by Anamika Smith MD Site: WO ID: [id number] Name: JUDSON DE LA CRUZ Visit Date: 10/16/2024 Doctor: Alumni Relations Manager: Shannon Hughes Age: 44 Date of : 1980 Gender: Female Race: White Height: 57.28 in Weight: 236.00 lbs BSA: 1.936 Diagnosis: Mild intermittent asthma, uncomplicated Dyspnea: Cough: Wheeze: Tobacco Use: None Medications: Comments: PRE-BRONCHODILATOR: The two largest FVCs were repeatable. The two largest FEV1s were repeatable. Time to Peak Flow greater than ATS/ERS standard, FEV1 may not be valid. FRC is repeatable x3. DLCO is repeatable x2. Breath hold time higher than ATS/ERS guidelines. Medications and Allergies were reviewed for possible drug interactions per policy. No contraindications or sensitivities were noted. Meds taken: No inhaled respiratory medications taken before testing. 2 puffs Albuterol (180 mcg) delivered by MDI via holding chamber. HR pre = 75/min, HR post = 75/min. POST-BRONCHODILATOR: Current ATS/ERS acceptability and repeatability standards for spirometry met. Start of test and EOFE criteria met. Review Status: Not Reviewed PRE-BRONCH POST-BRONCH Pred LLN ULN Actual %Pred Actual %Chng SPIROMETRY FVC (L) 2.49 1.88 3.12 2.04 81 1.87 -6 FEV1 (L) 2.11 1.58 2.61 1.69 80 1.59 -4 FEV1/FVC 0.84 0.72 0.93 0.83 98 0.85 2 FEF25 (L/sec) 4.27 3.52 -17 FEF50 (L/sec) 3.15 1.54 4.75 2.97 94 2.93 -1 FEF75 (L/sec) 0.84 0.38 1.68 0.63 74 0.40 -36 YRA99-91 (L/sec) 2.52 1.47 3.82 2.01 79 1.52 -24 FEF Max (L/sec) 5.89 4.52 7.26 4.44 75 4.16 -6 FIVC (L) 1.66 1.76 6 FIF50 (L/sec) 1.78 1.45 -18 FIF Max (L/sec) 1.87 1.64 -12 Time (sec) 5.72 4.52 -20 AL (L) 0.08 0.06 -24 Time To FEF Max (sec) 0.17 0.12 -28 LUNG VOLUMES SVC (L) 2.49 1.88 3.12 1.52 60 IC (L) 1.66 1.17 70 ERV (L) 0.83 0.21 24 FRC (Pleth) (L) 2.20 1.34 3.06 1.36 61 RV (Pleth) (L) 1.36 0.73 1.98 1.15 84 TLC (Pleth) (L) 4.05 3.17 4.93 2.53 62 RV/TLC (Pleth) (%) 33 24 42 45 136 DIFFUSION DLCOunc (ml/min/mmHg) 20.52 (more content not included)... PULMONARY FUNCTION LAB [facility] SPIROMETRY - BASELINE AND PO ST DINOon 10-18-2024 DLCO (ml/min/mmHg) 17.59 ml/min/mmHg [facility] DLCO LLN (ml/min/mmHg) 14.35 ml/min/mmHg [facility] DLCO PREDICTED (ml/min/mmHg) 20.52 ml/min/mmHg [facility] DLCO ULN (ml/min/mmHg) 26.69 ml/min/mmHg [facility] DLCO/VA (ml/min/mmHg/L) 0.06 ml/min/mmHg/L [facility] DLCO/VA PREDICTED (ml/min/mmHg/L) 0.05 ml/min/mmHg/L [facility] DLCO/VAcor (ml/min/mmHg/L) 0.06 ml/min/mmHg/L [facility] DLCOcor (ml/min/mmHg) 17.24 ml/min/mmHg [facility] DLCOcor PREDICTED (ml/min/mmHg) 20.52 ml/min/mmHg [facility] ERV BOX (L) 0.21 L [facility] ERV PREDICTED (L) 0.83 L/S [facility] FEF25% POST (L/S) 3.52 L[facility] FEF25% PRE (L/S) 4.27 L/S [facility] PTK70-17% LLN (L/S) 1.47 L[facility] KKV50-79% POST (L/S) 1.52 L[facility]S [facility] DJS07-70% PRE (L/S) 2.01 L[facility]S [facility] TJS28-82% PREDICTED (L/S) 2.52 L/S [facility] FEF75% LLN (L/S) 0.38 L[facility]S [facility] FEF75% POST (L/S) 0.4 L[facility]S [facility] FEF75% PRE (L/S0 0.63 L/S [facility] FEF75% PREDICTED (L/S) 0.84 L/S [facility] FEF75% ULN (L/S) 1.68 L/S [facility] FET POST (S) 4.52 S [facility] FET PRE (S) 5.72 S [facility] FEV1 LLN (L) 1.58 L [facility] FEV1 PRE (L) 1.69 L [facility] FEV1 PREDICTED (L) 2.11 L [facility] FEV1 ULN (L) 2.61 L [facility] FEV1/FVC LLN (%) 72 % [facility] FEV1/FVC POST (%) 85 % [facility] FEV1/FVC PRE (%) 83 % [facility] FEV1/FVC PREDICTED (%) 84 % [facility] FEV1_POST (L) 1.59 L [facility] FRC Box (L) 1.36 L [facility] FVC LLN (L) 1.88 L [facility] FVC POST (L) 1.87 L [facility] FVC PRE (L) 2.04 L [facility] FVC PREDICTED (L) 2.49 L [facility] FVC ULN (L) 3.12 L [facility] IC BOX (L) 1.17 L [facility] IC PREDICTED (L) 1.66 L/S [facility] PEF LLN (L/S) 4.52 L/S [facility] PEF POST (L/S) 4.16 L/S [facility] PEF PRE (L/S) 4.44 L/S [facility] PEF ULN (L/S) 7.26 L/S [facility] RV Box (L) 1.15 L [facility] RV Box PREDICTED (L) 1.36 L [facility] RV/TLC Box (%) 45 % [facility] RV/TLC Box PREDICTED (%) 33 % [facility] SVC LLN (L) 1.88 L/S [facility] SVC PREDICTED (L) 2.49 L/S [facility] SVC ULN (L) 3.12 L/S [facility] TLC Box (L) 2.53 L [facility] TLC Box PREDICTED (L) 4.05 L [facility] (L) 3 L [facility] VA PREDICTED (L) 3.96 L [facility] VC (L) BOX 1.52 L [facility] DBT Breast - bilateral wallace zabala 10-15-2024 IMPRESSION: There is no mammographic evidence of malignancy in either breast. Routine screening mammogram is recommended. Annual mammogram will be due in 1 year. BI-RADS Category 1: Negative RISK: Based on the Tyrer-Cuzick (TC) risk assessment model, this patient has a 6.2% lifetime risk of developing breast cancer, meaning they are at average risk for developing breast cancer. However, this is only an estimate based on available history provided on the patient's questionnaire. We encourage all patients to talk with their providers about these results, further recommendations for managing breast health, and appropriate supplemental screening options if the patient has dense breast tissue. Interpreting Radiologist: Pee Beasley M.D. Electronically signed on: 10/15/2024 Hot Man: ROGELIO Transcribe Date/Time: Oct 10 2024 1:10P Dictated by: PEE BEASLEY MD This examination was interpreted and the report reviewed and electronically signed by: PEE BEASLEY MD on Oct 15 2024 11:47AM [facility] DIVISION OF RADIOLOGY * * *Final Report* * * DATE OF EXAM: Oct 10 2024 1:36PM [facility] [id number] - [facility] SCREENING W SAVA[place] / PROCEDURE REASON: Encounter for screening mammogram for breast cancer * * * * Physician Interpretation * * * * RESULT: [place] [address] [place] [place] [id number] #[id number] - [facility] SCREENING W SAVA[place] HISTORY: 44 year-old patient seen for screening and is asymptomatic in both breasts. Patient states no personal history of breast cancer. COMPARISON STUDIES: The present examination has been compared to a prior imaging study dated 12/16/2022. MAMMOGRAM TECHNIQUE: The study was acquired using full field digital technology and interpreted from soft copy. Digital Breast Tomosynthesis (DBT) images were obtained and used to assist in the interpretation of this examination. MAMMOGRAM FINDINGS: The breasts are almost entirely fatty. No suspicious masses, calcifications or other abnormalities are seen in either breast. There are no significant interval changes. DIVISION OF RADIOLOGY Provider, [facility] - 10/15/2024 * * *Final Report* * * DATE OF EXAM: Oct 10 2024 1:36PM [id number] - [facility] SCREENING W SAVANA / PROCEDURE REASON: Encounter for screening mammogram for breast cancer * * * * Physician Interpretation * * * * RESULT: [place] [address] [place] [place] [id number] #[id number] - [facility] SCREENING W S[place] HISTORY: 44 year-old patient seen for screening and is asymptomatic in both breasts. Patient states no personal history of breast cancer. COMPARISON STUDIES: The present examination has been compared to a prior imaging study dated 12/16/2022. MAMMOGRAM TECHNIQUE: The study was acquired using full field digital technology and interpreted from soft copy. Digital Breast Tomosynthesis (DBT) images were obtained and used to assist in the interpretation of this examination. MAMMOGRAM FINDINGS: The breasts are almost entirely fatty. No suspicious masses, calcifications or other abnormalities are seen in either breast. There are no significant interval changes. IMPRESSION IMPRESSION: There is no mammographic evidence of malignancy in either breast. Routine screening mammogram is recommended. Annual mammogram will be due in 1 year. BI-RADS Category 1: Negative RISK: Based on the Tyrer-Cuzick (TC) risk assessment model, this patient has a 6.2% lifetime risk of developing breast cancer, meaning they are at average risk for developing breast cancer. However, this is only an estimate based on available history provided on the patient's questionnaire. We encourage all patients to talk with their providers about these results, further recommendations for managing breast health, and appropriate supplemental screening options if the patient has dense breast tissue. Interpreting Radiologist: Pee Beasley M.D. Electronically signed on: 10/15/2024 Hot Man: ROGELIO Transcribe Date/Time: Oct 10 2024 1:10P Dictated by: PEE BEASLEY MD This examination was interpreted and the report reviewed and electronically signed by: PEE BEASLEY MD on Oct 15 2024 11:47AM EST [facility] DBT Breast - bilateral scree ningOrdered By: Cc Provider on 10-15-2024 [facility] 25(OH)D3 SerPl-mCncon 2024 25-hydroxyvitamin D3 [Mass/Vol] 83.3 ng/mL High 31.0-80.0 [facility] Comment on above: Order Comment: Speci men Type: BLOOD SPECIMENOrdering Facility: [facility] Address: [address] [place] [address] Result Comment: Clas sification of 25 [place] Vitamin D status: Deficiency/Insufficiency: < or = 30 ng/ml. Sufficiency/Optimal Levels: 31-80 ng/mL Toxicity: > 100 ng/mL. Test performed by chemiluminescent immunoassay. Performed By: #### 1 989-3 ####[facility] LABCLIA [id number] [place] [address] [place] 25-hydroxyvitamin D3 [Mass/V ol]on 10-10-2024 Interpretation and review of laboratory results Abnormal [facility] The reference range interval was based on an analysis of samples from healthy adults and may not pertain to children from 0-18 years old. [facility] CBC panel Auto (Bld)on 10-10 Erythrocyte distribution width (RBC) [Ratio] 15.1 % High 11.5 - 15.0 % [facility] Hematocrit (Bld) [Volume fraction] 39.1 % 36.0 - 46.0 % [facility] Hemoglobin (Bld) [Mass/Vol] 12.8 g/dL 11.5 - 15.5 g/dL [facility] Interpretation and review of laboratory results Abnormal [facility] MCH (RBC) [Entitic mass] 30.6 pg 26.0 - 34.0 pg [facility] MCHC (RBC) [Mass/Vol] 32.7 g/dL 30.5 - 36.0 g/dL [facility] MCV (RBC) [Entitic vol] 93.5 fL 80.0 - 100.0 fL [facility] Nucleated RBC (Bld) [#/Vol] NINF [facility] Platelet mean volume (Bld) [Entitic vol] 9.6 fL 9.0 - 12.7 fL [facility] Platelets (Bld) [#/Vol] 344 10*3/uL [facility] RBC (Bld) [#/Vol] 4.18 10*6/uL 3.90 - 5.2 0 m/uL [facility] WBC (Bld) [#/Vol] 6.38 10*3/uL [facility] Erythrocyte distribution width (RBC) [Ratio] 15.1 % High 11.5-15.0 [facility] Comment on above: Order Comment: Speci men Type: BLOOD SPECIMENOrdering Facility: [facility] Address: [address] [place] [address] Performed By: #### 5 8410-2 ####[facility] [id number] [place] [address] [place] Hematocrit (Bld) [Volume fraction] 39.1 % Normal 36.0-46.0 [facility] Comment on above: Order Comment: Speci men Type: BLOOD SPECIMENOrdering Facility: [facility] Address: [address] [place] [address] Performed By: #### 5 8410-2 ####[facility] [id number] [place] [address] [place] Hemoglobin (Bld) [Mass/Vol] 12.8 g/dL Normal 11.5-15.5 [facility] Comment on above: Order Comment: Speci men Type: BLOOD SPECIMENOrdering Facility: [facility] Address: [address] [place] [address] Performed By: #### 5 8410-2 ####[facility] [id number] [place] [address] [place] MCH (RBC) [Entitic mass] 30.6 pg Normal 26.0-34.0 [facility] Comment on above: Order Comment: Speci men Type: BLOOD SPECIMENOrdering Facility: [facility] Address: [address] [place] [address] Performed By: #### 5 8410-2 ####[facility] [id number] [place] [address] [place] MCHC (RBC) [Mass/Vol] 32.7 g/dL Normal 30.5-36.0 [facility] Comment on above: Order Comment: Speci men Type: BLOOD SPECIMENOrdering Facility: [facility] Address: [address] [place] [address] Performed By: #### 5 8410-2 ####[facility] [id number] [place] [address] [place] MCV (RBC) [Entitic vol] 93.5 fL Normal 80.0-100.0 [facility] Comment on above: Order Comment: Speci men Type: BLOOD SPECIMENOrdering Facility: [facility] Address: [address] [place] [address] Performed By: #### 5 8410-2 ####[facility] [id number] [place] [address] [place] Nucleated RBC (Bld) [#/Vol] 10*3/uL Normal <0.01 [facility] Comment on above: Order Comment: Speci men Type: BLOOD SPECIMENOrdering Facility: [facility] Address: [address] [place] [address] Performed By: #### 5 8410-2 ####[facility] [id number] [place] [address] [place] Platelet mean volume (Bld) [Entitic vol] 9.6 fL Normal 9.0-12.7 [facility] Comment on above: Order Comment: Speci men Type: BLOOD SPECIMENOrdering Facility: [facility] Address: [address] [place] [address] Performed By: #### 5 8410-2 ####[facility] [id number] [place] [address] [place] Platelets (Bld) [#/Vol] 344 10*3/uL Normal 150-400 [facility] Comment on above: Order Comment: Speci men Type: BLOOD SPECIMENOrdering Facility: [facility] Address: [address] [place] [address] Performed By: #### 5 8410-2 ####[facility] NASSAUWNCLIA [id number] [place] [address] [place] RBC (Bld) [#/Vol] 4.18 10*6/uL Normal 3.90-5.20 [facility] Comment on above: Order Comment: Speci men Type: BLOOD SPECIMENOrdering Facility: [facility] Address: [address] [place] [address] Performed By: #### 5 8410-2 ####[facility] [id number] [place] [address] [place] WBC (Bld) [#/Vol] 6.38 10*3/uL Normal 3.70-11.00 [facility] Comment on above: Order Comment: Speci men Type: BLOOD SPECIMENOrdering Facility: [facility] Address: [address] [place] [address] Performed By: #### 5 8410-2 ####[facility] [id number] [place] [address] [place] Comprehensive metabolic 2000 panelOrdered By: Shayla Duran on 10-10-2024 Albumin [Mass/Vol] 4.7 g/dL 3.9 - 4.9 g/dL [facility] ALP [Catalytic activity/Vol] 92 U/L 34 - 123 U/L [facility] ALT [Catalytic activity/Vol] 58 U/L High 7 - 38 U/L [facility] Anion gap [Moles/Vol] 10 mmol/L 8 - 15 mmol/L [facility] AST [Catalytic activity/Vol] 51 U/L High 13 - 35 U/L [facility] Bilirubin [Mass/Vol] 0.3 mg/dL 0.2 - 1 .3 mg/dL [facility] Calcium [Mass/Vol] 10.2 mg/dL 8.5 - 10. 2 mg/dL [facility] Chloride [Moles/Vol] 102 mmol/L 98 - 10 7 mmol/L [facility] CO2 [Moles/Vol] 25 mmol/L 22 - 30 mmol/L [facility] Creatinine [Mass/Vol] 0.77 mg/dL 0.58 - 0.96 mg/dL [facility] GFR/1.73 sq M.predicted among non-blacks MDRD (S/P/Bld) [Vol rate/Area] 97 mL/min/{1.73_m2} - PINF [facility] Comment on above: Estimated Glomerular Filtration Rate (eGFR) is calculated using the 2020 CKD-EPI creatinine equation. This equation utilizes serum creatinine, sex, and age as parameters. The creatinine assay has traceable calibration to isotope dilution-mass spectrometry. Refer to KDIGO guidelines for clinical interpretation. In patients with unstable renal function, e.g. those with acute kidney injury, the eGFR may not accurately reflect actual GFR. Glucose [Mass/Vol] 119 mg/dL High 74 - 99 mg/dL [facility] Comment on above: The [place] Diabete s Association (ADA) provides guidance for cutoff values for fasting glucose and random glucose. The ADA defines fasting as no caloric intake for at least 8 hours. Fasting plasma glucose results between 100 to 125 mg/dL indicate increased risk for diabetes (prediabetes). Fasting plasma glucose results greater than or equal to 126 mg/dL meet the criteria for diagnosis of diabetes. In the absence of unequivocal hyperglycemia, results should be confirmed by repeat testing. In a patient with classic symptoms of hyperglycemia or hyperglycemic crisis, random plasma glucose results greater than or equal to 200 mg/dL meet the criteria for diagnosis of diabetes. Reference: Standards of Medical Care in Diabetes 2016, [place] Diabetes Association. Diabetes Care. 2016.39(Suppl 1). Interpretation and review of laboratory results Abnormal [facility] Potassium [Moles/Vol] 4.3 mmol/L 3.7 - 5.1 mmol/L [facility] Protein [Mass/Vol] 7.4 g/dL 6.3 - 8.0 g/dL Cl [facility] Sodium [Moles/Vol] 137 mmol/L 136 - 144 mmol/L [facility] Urea nitrogen [Mass/Vol] 11 mg/dL 7 - 21 mg/dL [facility] Comprehensive metabolic 2000 panelon 10-10-2024 Albumin [Mass/Vol] 4.7 g/dL Normal 3.9-4.9 [facility] Comment on above: Order Comment: Speci men Type: BLOOD SPECIMENOrdering Facility: [facility] Address: [address] [place] [address] Performed By: #### 2 4323-8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 Rash Comments: Patient c/o dizziness, rash and then hives HYDROCODONE-ACETAMINOPHE N 09/24/2009 14 - Other: See Comments HYDROCODONE-GUAIFENESIN 03/14/2024 16 - Unknown SULFA (SULFONAMIDE ANTIBIOTICS) 12/09/2021 4 - Hives 14 - Other: See Comments 16 - Unknown SULFAMETHOXAZOLE 12/09/2021 8 - GI Upset Date Reviewed: 09/26/2024 Reviewed by: Silvia Spicer LPN - Fully Assessed Reason for Visit: Results [95] Prescriptions as of 09/30/2024 - acetaminophen (TYLENOL) 325 mg tablet Take 1-2 tablets by mouth every 6 hours as needed for pain or fever (specify temp.) for up to 10 days. - benzonatate (TESSALON PERLE) 100 mg capsule Take 1 capsule by mouth three times a day as needed for cough for up to 7 days. - atorvastatin (LIPITOR) 40 mg tablet - cholecalciferol, Vitamin D3, (VITAMIN D3) 1,250 mcg (50,000 unit) cap capsule - omega-3 fatty acids/fish oil (FISH OIL-OMEGA-3 FATTY ACIDS) 300-1,000 mg cap - mupirocin (BACTROBAN) 2 % cream Apply 1 application to affected area three times a day for 10 days. Location: left 5th toe - atorvastatin calcium (LIPITOR ORAL) Take by mouth. - metFORMIN (GLUCOPHAGE) 500 mg tablet Take 1 tablet by mouth two times a day. - albuterol HFA (PROVENTIL HFA, VENTOLIN HFA) 90 mcg/actuation inhaler Inhale 2 Puffs as instructed every 4 hours as needed for wheezing/shortness of breath. - Cholecalciferol, Vitamin D3, (D3-2000) 50 mcg (2,000 unit) cap Take by mouth. - levothyroxine (SYNTHROID) 100 mcg tablet Take 1 tablet by mouth once daily. - cyanocobalamin (VITAMIN B-12) 500 mcg ORAL Tab Take 1 tablet by mouth once daily. Problem List As Of Date 09/26/2024 Noted Resolved Type 2 diabetes mellitus without complication, * Hypothyroid [E03.9] Irregular Menses [N92.6] PCOD (polycystic ovarian disease) [E28.2] 05/25/2016 Hyperlipidemia [E78.5] 05/25/2016 Gallstones [K80.20] Dysmetabolic Syndrome [E88.810] Obesity [E66.9] Depression [F32.A] Vitamin D deficiency [E55.9] 08/30/2010 Hypothyroidism [E03.9] 04/11/2018 Obesity, Class III, BMI 40-49.9 (morbid obesity*12/09/2021 Impaired fasting glucose [R73.01] 12/29/2021 Cervical radiculopathy [M54.12] 11/03/2023 Lumbar radiculopathy [M54.16] 11/03/2023 DDD (degenerative disc disease), lumbar [M51.36*11/03/2023 Muscle weakness [M62.81] 11/17/2023 02/19/2024 Pain in joint, multiple sites [M25.50] 11/17/2023 02/19/2024 Acute traumatic internal derangement of left kn*03/14/2024 03/14/2024 Abnormal uterine bleeding [N93.9] 03/14/2024 03/14/2024 Acute cough [R05.1] 07/10/2023 03/14/2024 Acute sinusitis [J01.90] 03/14/2024 03/14/2024 Allergic rhinitis [J30.9] 03/14/2024 03/14/2024 Ankle pain [M25.579] 03/14/2024 03/14/2024 Constipation [K59.00] 03/14/2024 03/14/2024 Derangement of left knee [M23.92] 03/14/2024 03/14/2024 Diarrhea [R19.7] 08/04/2023 03/14/2024 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 03/14/2024 Hemorrhoids [K64.9] 03/18/2018 03/14/2024 Herpes zoster [B02.9] 03/14/2024 03/14/2024 Hyperglycemia [R73.9] 03/14/2024 03/14/2024 Muscle spasms of neck [M62.838] 03/14/2024 03/14/2024 Papanicolaou smear of cervix with atypical squa*03/14/2024 03/14/2024 Rash [R21] 03/14/2024 03/14/2024 Somatic dysfunction of cervical region [M99.01] 03/14/2024 03/14/2024 Somatic dysfunction of head region [M99.00] 03/14/2024 03/14/2024 Spasm of cervical paraspinous muscle [M62.838] 03/14/2024 03/14/2024 Strain of hamstring muscle [S76.319A] 03/14/2024 03/14/2024 Tension type headache [G44.209] 03/14/2024 03/14/2024 Vaginal odor [N89.8] 03/14/2024 03/14/2024 Allergy status to sulfonamides [Z88.2] 12/06/2022 03/14/2024 Muscle weakness (generalized) [M62.81] 11/17/2023 03/14/2024 Blister [T14.8XXA] 07/14/2023 03/14/2024 Other intervertebral d (more content not included)... Normal [facility] STREP A MOLECULAR (POC)on Procedural Control Valid [facility] Strep A (POCT) Negative Negative [facility] CNOVon 09-22-2024 CNOV Office Visit (UCWSTR ) -------- JUDSON DE LA CRUZ ([id number]) 1980 F Date Time Provider Department 09/22/24 1:30 PM LIZ SUÁREZ WS During your visit today, we recorded the following information about you: Temperature Pulse Respiration Blood pressure 98.3 degrees 77/minute 18/minute 115/81 Weight 109.8 kg Liz Suárez APRN.COMMUNITY LIAISON 09/22/2024 3:33 PM Signed This note was created using NoteWriter. Subjective Judson De La Cruz is a 44 year old female. 44 year old female with PMH hyperliidemia, PCOD, DDD, depressoin, diabetes and thyroid Presents for Multiple complaints She lists off foot pain, back pain, knee pain, lack of primary care, and wanting recommendations for sooner PCP In discussing limitations of express care, she chooses her foot complaint and wanting to establish with PCP Foot Wound Acute onset yesterday Left foot Wound to little toe +red +painful Denies known trauma or injury Has history of NIDDM, and states that she takes Metformin Has not seen a senior officer The history is provided by the patient. No repair department manager was used. Wound Check This is a new problem. The current episode started yesterday. The problem occurs constantly. The problem has been unchanged. Pertinent negatives include no abdominal pain, anorexia, arthralgias, change in bowel habit, chest pain, congestion, coughing, diaphoresis, fatigue, fever, nausea, rash, sore throat, swollen glands, urinary symptoms, visual change, vomiting or weakness. Nothing aggravates the symptoms. She has tried nothing for the symptoms. The treatment provided no relief. 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 Hemorrhoids 03/18/2018 Herpes zoster 03/14/2024 Hyperglycemia 03/14/2024 Hyperlipidemia Hypothyroid 08/21/1998 Irregular menses Knee pain 03/14/2024 Comment on above: KNEE PAIN Major depressive disorder, recurrent, moderate (HCC) 05/23/2023 Muscle spasms of neck 03/14/2024 Muscle weakness 11/17/2023 Muscle weakness (generalized) 11/17/2023 Obesity Other intervertebral disc degeneration, lumbar region 11/03/2023 Other specified diseases of anus and rectum 09/04/2023 Pain in joint, multiple sites 11/17/2023 Pain in right hip 12/06/2022 Pain in unspecified joint 11/17/2023 Papanicolaou smear of cervix with atypical squamous cells cannot exclude high grade squamous intraepithelial lesion (ASC-H) 03/14/2024 Pleurodynia 07/10/2023 Polycystic disease, ovaries Radiculopathy, cervical region 11/03/2023 Rash 03/14/2024 Somatic dysfunction of cervical region 03/14/2024 Somatic dysfunction of head region 03/14/2024 Spasm of cervical paraspinous muscle 03/14/2024 Strain of hamstring muscle 03/14/2024 Tension type headache 03/14/2024 Type 2 diabetes mellitus without complications (HCC) 12/06/2022 Vaginal odor 03/14/2024 PAST SURGICAL HISTORY Procedure Laterality Date CHOLECYSTECTOMY ORAL SURGERY PROCEDURE all teeth pulled wisdom teeth ALLERGIES Adhesive Tape (Rosins), Adhesive Tape-Silicones, Cephalexin, Doxycycline, Hydrocodone-Acetaminophe n, Hydrocodone-Guaifenesin, Sulfa (Sulfonamide Antibiotics), and Sulfamethoxazole MEDICATIONS atorvastatin (LIPITOR) 40 mg tablet cholecalciferol, Vitamin D3, (VITAMIN D3) 1,250 mcg (50,000 unit) cap capsule omega-3 fatty acids/fish oil (FISH OIL-OMEGA-3 FATTY ACIDS) 300-1,000 mg cap metFORMIN (GLUCOPHAGE) 500 mg tablet Take 1 tablet by mouth two times a day. albuterol HFA (PROVENTIL HFA, VENTOLIN HFA) 90 mcg/actuation inhaler Inhale 2 Puffs as instructed every 4 hours as needed for wheezing/shortness of breath. levothyroxine (SYNTHROID) 100 mcg tablet Take 1 tablet by mouth once daily. cyanocobalamin (VITAMIN B-12) 500 mcg ORAL Tab Take 1 tablet by mouth once daily. mupirocin (BACTROBAN) 2 % cream Apply 1 application to affected area three times a day for 10 days. Location: left 5th toe cyclobenzaprine (FLEXERIL) 10 mg tablet Take 1 tablet by mouth three times a day as needed for muscle spasm. (Patient not taking: Reported on 09/22/2024) atorvastatin calcium (LIPITOR ORAL) Take by mouth. (Patient not taking: Reported on 09/22/2024) Cholecalciferol, Vitamin D3, (D3-2000) 50 mcg (2,000 unit) cap Take by mouth. (Patient not taking: Reported on 09/22/2024) FAMILY HISTORY Problem Relation Age (more content not included)... [facility] -------- JUDSON DE LA CRUZ ([id number]) 1980 F Date Time Provider Department 07/30/24 8:30 AM [facility] During your visit today, we recorded the following information about you: Temperature Pulse Respiration Blood pressure 98.2 degrees 95/minute 20/minute 122/87 Weight Last Period 109 kg 09/04/23 Smooth Reed APRN.[facility] 07/30/2024 9:58 AM Signed Subjective HPI HPI Judson Albrecht Jono is a 44 year old female who presents today for CC of cough, congestion, sob, sinus pressure. This started 1 week ago. Has tried otc medication for relief. Symptoms are worsened by nothing. Risk factors sick exposures. Hx of asthma. .Patient presents with: Cough: Chest congestion, chest tightness, SOB, runny nose, sinus pressure, yellow thick phlegm x 1 week 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 Hemorrhoids 03/18/2018 Herpes zoster 03/14/2024 Hyperglycemia 03/14/2024 Hyperlipidemia Hypothyroid 08/21/1998 Irregular menses Knee pain 03/14/2024 Comment on above: KNEE PAIN Major depressive disorder, recurrent, moderate (HCC) 05/23/2023 Muscle spasms of neck 03/14/2024 Muscle weakness 11/17/2023 Muscle weakness (generalized) 11/17/2023 Obesity Other intervertebral disc degeneration, lumbar region 11/03/2023 Other specified diseases of anus and rectum 09/04/2023 Pain in joint, multiple sites 11/17/2023 Pain in right hip 12/06/2022 Pain in unspecified joint 11/17/2023 Papanicolaou smear of cervix with atypical squamous cells cannot exclude high grade squamous intraepithelial lesion (ASC-H) 03/14/2024 Pleurodynia 07/10/2023 Polycystic disease, ovaries Radiculopathy, cervical region 11/03/2023 Rash 03/14/2024 Somatic dysfunction of cervical region 03/14/2024 Somatic dysfunction of head region 03/14/2024 Spasm of cervical paraspinous muscle 03/14/2024 Strain of hamstring muscle 03/14/2024 Tension type headache 03/14/2024 Type 2 diabetes mellitus without complications (HCC) 12/06/2022 Vaginal odor 03/14/2024 PAST SURGICAL HISTORY Procedure Laterality Date CHOLECYSTECTOMY ORAL SURGERY PROCEDURE all teeth pulled wisdom teeth ALLERGIES Adhesive Tape (Rosins), Adhesive Tape-Silicones, Cephalexin, Doxycycline, Hydrocodone-Acetaminophe n, Hydrocodone-Guaifenesin, Sulfa (Sulfonamide Antibiotics), and Sulfamethoxazole MEDICATIONS cyclobenzaprine (FLEXERIL) 10 mg tablet Take 1 tablet by mouth three times a day as needed for muscle spasm. atorvastatin calcium (LIPITOR ORAL) Take by mouth. metFORMIN (GLUCOPHAGE) 500 mg tablet Take 1 tablet by mouth two times a day. albuterol HFA (PROVENTIL HFA, VENTOLIN HFA) 90 mcg/actuation inhaler Inhale 2 Puffs as instructed every 4 hours as needed for wheezing/shortness of breath. Cholecalciferol, Vitamin D3, (D3-2000) 50 mcg (2,000 unit) cap Take by mouth. levothyroxine (SYNTHROID) 100 mcg tablet Take 1 tablet by mouth once daily. cyanocobalamin (VITAMIN B-12) 500 mcg ORAL Tab Take 1 tablet by mouth once daily. FAMILY HISTORY Problem Relation Age of Onset Cancer Mother DC age 65 Coronary Artery Disease Mother other (kidney failure) Mother other (SLE) Mother None Father None Brother None Brother Social History Tobacco Use Smoking status: Former Current packs/day: 0.50 Average packs/day: 0.5 packs/day for 5.0 years (2.5 ttl pk-yrs) Types: Cigarettes Passive exposure: Current Smokeless tobacco: Never Substance Use Topics Alcohol use: Yes Comment: Occasional Drug use: No Review of Systems Constitutional: Negative for fever. HENT: Positive for congestion and sore throat. Negative for ear pain and nosebleeds. Respiratory: Positive for cough and shortness of breath. Negative for wheezing. Cardiovascular: Negative for chest pain. Musculoskeletal: Negative for neck pain. Objective Blood pressure 122/87, pulse 95, temperature 36.8 ?C (98.2 ?F), resp. rate 20, weight 109 kg (240 lb 4.8 oz), last menstrual period 09/04/2023, SpO2 98%. Physical Exam Constitutional: General: She is not in acute distress. Appearance: She is not toxic-appearing or diaphoretic. HENT: Head: Normocephalic and atraumatic. Nose: Nose normal. Mouth/Throat: Pharynx: Uvula midline. No pharyngeal swelling, oropharyngeal exudate, posterior oropharyngea (more content not included)... Normal [facility] XR CHEST 2V FRONTAL/LATon XR CHEST 2V FRONTAL/LAT * * *Final Report* * * DATE OF EXAM: Jul 30 2024 9:04AM WOX [id number] - XR CHEST 2V FRONTAL/LAT / PROCEDURE REASON: Acute cough * * * * Physician Interpretation * * * * EXAMINATION: CHEST RADIOGRAPH (2 VIEW FRONTAL and LATERAL) CLINICAL HISTORY: Acute cough MQ: XC2_6 EXAM DATE/TIME: 07/30/2024 9:04 AM COMPARISON: 12/12/2023 RESULT: Lines, tubes, and devices: None. Lungs and pleura: * Limited inspiratory effort. Small amount of bibasilar density may represent atelectasis/infiltrate No other consolidation. No lung mass. No pleural effusion. No pneumothorax. Cardiomediastinal silhouette: Normal cardiomediastinal silhouette. Bones and soft tissues: Unremarkable. IMPRESSION: Findings as discussed under Results portion of report. Hot Man: VINNY Transcribe Date/Time: Jul 30 2024 9:05A Dictated by : DAVID BOOGIE DO This examination was interpreted and the report reviewed and electronically signed by: DAVID BOOGIE DO on Jul 30 2024 9:06AM EST [id number] Normal [facility] XR Chest PA and Lateralon IMPRESSION: Findings as discussed under Results portion of report. Hot Man: VINNY Transcribe Date/Time: Jul 30 2024 9:05A Dictated by : DAVID BOOGIE DO This examination was interpreted and the report reviewed and electronically signed by: DAVID BOOGIE DO on Jul 30 2024 9:06AM EST DIVISION OF RADIOLOGY * * *Final Report* * * DATE OF EXAM: Jul 30 2024 9:04AM WOX 5291 - XR CHEST 2V FRONTAL/LAT / PROCEDURE REASON: Acute cough * * * * Physician Interpretation * * * * EXAMINATION: CHEST RADIOGRAPH (2 VIEW FRONTAL & LATERAL) CLINICAL HISTORY: Acute cough MQ: XC2_6 EXAM DATE/TIME: 07/30/2024 9:04 AM COMPARISON: 12/12/2023 RESULT: Lines, tubes, and devices: None. Lungs and pleura: * Limited inspiratory effort. Small amount of bibasilar density may represent atelectasis/infiltrate No other consolidation. No lung mass. No pleural effusion. No pneumothorax. Cardiomediastinal silhouette: Normal cardiomediastinal silhouette. Bones and soft tissues: Unremarkable. DIVISION OF RADIOLOGY Provider, [facility] - 07/30/2024 * * *Final Report* * * DATE OF EXAM: Jul 30 2024 9:04AM WOX 5291 - XR CHEST 2V FRONTAL/LAT / PROCEDURE REASON: Acute cough * * * * Physician Interpretation * * * * EXAMINATION: CHEST RADIOGRAPH (2 VIEW FRONTAL & LATERAL) CLINICAL HISTORY: Acute cough MQ: XC2_6 EXAM DATE/TIME: 07/30/2024 9:04 AM COMPARISON: 12/12/2023 RESULT: Lines, tubes, and devices: None. Lungs and pleura: * Limited inspiratory effort. Small amount of bibasilar density may represent atelectasis/infiltrate No other consolidation. No lung mass. No pleural effusion. No pneumothorax. Cardiomediastinal silhouette: Normal cardiomediastinal silhouette. Bones and soft tissues: Unremarkable. IMPRESSION IMPRESSION: Findings as discussed under Results portion of report. Hot Man: VINNY Transcribe Date/Time: Jul 30 2024 9:05A Dictated by : DAVID BOOGIE DO This examination was interpreted and the report reviewed and electronically signed by: DAVID BOOGIE DO on Jul 30 2024 9:06AM [facility] Radiology Study observation (narrative) [facility] XR Chest PA and LateralOrder ed By: [facility] Provider on 07-30-2024 [facility] 12 Lead EKGon 07-12-2024 12 Lead EKG [facility] Cardiovascular Services [address] [place] [address] 12 Lead EKG 07/12/24 0036 MR#: [id number] Acct: [id number] Name: JUDSON DE LA CRUZ Rep #: [id number] : 1980 44 From: Alix Anderson MD Attending Dr: Status: DEP ER Ordering Dr: Héctor Danielle DO Date: 4 Location: ED Sex: F C Admitted: Test Reason : CP Blood Pressure : */* mmHG Vent. Rate : 65 BPM Atrial Rate : 65 BPM P-R Int : 154 ms QRS Dur : 92 ms QT Int : 404 ms P-R-T Axes : 38 10 24 degrees QTcB Int : 420 ms Normal sinus rhythm Cannot rule out Anterior infarct , age undetermined Abnormal ECG Confirmed by ALIX ANDERSON ([id number]), editor magazine QUINTON MERINO ([id number]) on 07/12/2024 11:49:56 AM Referred By: AK Confirmed By: ALIX ANDERSON 07/12/24 1149 Date Alix Anderson MD CC: Dr. Héctor Danielle, ; No Primary Care Physician Signed Normal [facility] Basic Metabolic Profile (BMP )on 07-12-2024 BUN/CRE 17.4 RATIO Normal 10-20 [facility] Comment on above: Order Comment: 1Y Performed By: #### L 501.5425, L500.2500, L100.0100 ####[facility] [address] [place], [address] CA,Total 9.7 mg/dL Normal 8.5-10.1 [facility] Comment on above: Order Comment: 1Y Performed By: #### L 501.5425, L500.2500, L100.0100 ####[facility] [address] [place], [address] Chloride [Moles/Vol] 105 mmol/L Normal 98-107 [facility] Comment on above: Order Comment: 1Y Performed By: #### L 501.5425, L500.2500, L100.0100 ####[facility] [address] [place], [address] CO2 [Moles/Vol] 29.0 mmol/L Normal 21.0-32.0 [facility] Comment on above: Order Comment: 1Y Performed By: #### L 501.5425, L500.2500, L100.0100 ####[facility] [address] [place], [address] Creatinine [Mass/Vol] 0.86 mg/dL Normal 0.55-1.02 [facility] Comment on above: Order Comment: 1Y Result Comment: The validity of the calculated GFR GFRAA in patients over 70 years has not been determined. Clinical correlation is essential. Performed By: #### L 501.5425, L500.2500, L100.0100 ####[facility] [address] [place], [address] ECRCL 92.36 ml/min Normal [facility] Comment on above: Order Comment: 1Y Performed By: #### L 501.5425, L500.2500, L100.0100 ####[facility] [address] [place], [address] EST GFR - AA 92 mL/min Normal >60 [facility] Comment on above: Order Comment: 1Y Result Comment: Afri can [place] GFR Calc Performed By: #### L 501.5425, L500.2500, L100.0100 ####[facility] [address] [place], [address] GAP 6 Normal 5-15 [facility] Comment on above: Order Comment: 1Y Performed By: #### L 501.5425, L500.2500, L100.0100 ####[facility] [address] [place], [address] GFR/1.73 sq M.predicted among non-blacks MDRD (S/P/Bld) [Vol rate/Area] 76 mL/min/{1.73_m2} Normal >60 [facility] Comment on above: Order Comment: 1Y Result Comment: Non- GFR Calc Performed By: #### L 501.5425, L500.2500, L100.0100 ####[facility] [address] [place], [address] Glucose [Mass/Vol] 113 mg/dL High 74-106 [facility] Comment on above: Order Comment: 1Y Result Comment: Fast ing Glucose result from 100 to 125 mg/dL suggests IMPAIRED HOMEOSTASIS per A.D.A. criteria. Performed By: #### L 501.5425, L500.2500, L100.0100 ####[facility] [address] [place], [address] Potassium [Moles/Vol] 3.8 mmol/L Normal 3.5-5.1 [facility] Comment on above: Order Comment: 1Y Performed By: #### L 501.5425, L500.2500, L100.0100 ####[facility] [address] [place], [address] Sodium [Moles/Vol] 140 mmol/L Normal 136-145 [facility] Comment on above: Order Comment: 1Y Performed By: #### L 501.5425, L500.2500, L100.0100 ####[facility] [address] [place], [address] Urea nitrogen [Mass/Vol] 15 mg/dL Normal 7-18 [facility] Comment on above: Order Comment: 1Y Performed By: #### L 501.5425, L500.2500, L100.0100 ####[facility] [address] [place], [address] CBC W/Diff, Automatedon 11-2 Absolute Lymph 1.80 X10 3/uL Normal 0.83-4.51 [facility] Comment on above: Performed By: #### L 501.5425, L500.2500, L100.0100 ####[facility] [address] [place], [address] Absolute Neut 4.5 X10 3/uL Normal 2.0-7.7 [facility] Comment on above: Performed By: #### L 501.5425, L500.2500, L100.0100 ####[facility] [address] [place], [address] Basophils/100 WBC (Bld) 0.3 % Normal 0-1 [facility] Comment on above: Performed By: #### L 501.5425, L500.2500, L100.0100 ####[facility] [address] [place], [address] Eosinophils/100 WBC (Bld) 4.5 % Normal 0-5 [facility] Comment on above: Performed By: #### L 501.5425, L500.2500, L100.0100 ####[facility] [address] [place], [address] Erythrocyte distribution width (RBC) [Ratio] 15.1 % High 11.6-14.6 [facility] Comment on above: Performed By: #### L 501.5425, L500.2500, L100.0100 ####[facility] [address] [place], [address] Hematocrit (Bld) [Volume fraction] 39.9 % Normal 37-47 [facility] Comment on above: Performed By: #### L 501.5425, L500.2500, L100.0100 ####[facility] [address] [place], [address] Hemoglobin (Bld) [Mass/Vol] 12.7 g/dL Normal 12.0-15.0 [facility] Comment on above: Performed By: #### L 501.5425, L500.2500, L100.0100 ####[facility] [address] [place], [address] IG% 0.800 Normal 0.0-0.9 [facility] Comment on above: Result Comment: IG% - Immature Granulocytes (promyelocytes, myelocytes and metamyelocytes) > 1% indicates that a LEFT SHIFT is Present. Performed By: #### L 501.5425, L500.2500, L100.0100 ####[facility] [address] [place], [address] Lymphocytes/100 WBC (Bld) 24.4 % Normal 19-41 [facility] Comment on above: Performed By: #### L 501.5425, L500.2500, L100.0100 ####[facility] [address] [place], [address] MCH (RBC) [Entitic mass] 29.6 pg Normal 27.0-32.0 [facility] Comment on above: Performed By: #### L 501.5425, L500.2500, L100.0100 ####[facility] [address] [place], [address] MCHC (RBC) [Mass/Vol] 31.8 g/dL Low 32-36 [facility] Comment on above: Performed By: #### L 501.5425, L500.2500, L100.0100 ####[facility] [address] [place], [address] MCV (RBC) [Entitic vol] 93.0 fL Normal 81-99 [facility] Comment on above: Performed By: #### L 501.5425, L500.2500, L100.0100 ####[facility] [address] [place], [address] Monocytes/100 WBC (Bld) 8.5 % Normal 0-10 [facility] Comment on above: Performed By: #### L 501.5425, L500.2500, L100.0100 ####[facility] [address] [place], [address] Neutrophils/100 WBC (Bld) 61.5 % Normal 47-70 [facility] Comment on above: Performed By: #### L 501.5425, L500.2500, L100.0100 ####[facility] [address] [place], [address] Nucleated RBC (Bld) [#/Vol] 0 10*3/uL Normal 0-5 [facility] Comment on above: Performed By: #### L 501.5425, L500.2500, L100.0100 ####[facility] [address] [place], [address] Platelet mean volume (Bld) [Entitic vol] 9.8 fL Normal 6.2-12.0 [facility] Comment on above: Performed By: #### L 501.5425, L500.2500, L100.0100 ####[facility] [address] [place], [address] Platelets (Bld) [#/Vol] 330 10*3/uL Normal 150-450 [facility] Comment on above: Performed By: #### L 501.5425, L500.2500, L100.0100 ####[facility] [address] [place], [address] RBC (Bld) [#/Vol] 4.29 10*6/uL Normal 4.2-5.4 [facility] Comment on above: Performed By: #### L 501.5425, L500.2500, L100.0100 ####[facility] [address] [place], [address] RDW SD 51.5 fl High 35.1-43.9 [facility] Comment on above: Performed By: #### L 501.5425, L500.2500, L100.0100 ####[facility] [address] [place], [address] WBC (Bld) [#/Vol] 7.4 10*3/uL Normal 4.4-11.0 [facility] Comment on above: Performed By: #### L 501.5425, L500.2500, L100.0100 ####[facility] [address] [place], [address] Chest PA and Lateralon 07-12 Chest PA and Lateral [facility] Imaging Services [address] [place] [address] Chest PA and Lateral MR#: [id number] Acct: [id number] Name: JUDSON DE LA CRUZ Rep #: [id number] : 1980 F 44 From: Kimberly Hdz MD PCP: Care Physician,No Primary Status: REG ER Study: Chest PA and Lateral Date of Exam: 07/12/24 Exam# [id number] Ordering Dr: Héctor Danielle DO [id number] EXAM: XR CHEST, 2 VIEWS CLINICAL INDICATION: chest pain TECHNIQUE: Frontal and lateral views of the chest. COMPARISON: No relevant prior studies available. FINDINGS: LUNGS AND PLEURAL SPACES: Unremarkable. No consolidation or edema. No pneumothorax. No effusion. HEART: Unremarkable. Cardiac silhouette not enlarged. MEDIASTINUM: Central airways and mediastinal contour are unremarkable. BONES/JOINTS: Unremarkable. No acute fracture. SOFT TISSUES: Unremarkable. RAD/Chest PA and Lateral IMPRESSION: No radiographic evidence of acute cardiopulmonary disease. Electronically Signed: Kimberly Hdz MD at 1:46 EST , CC: Dr. Héctor Danielle DO; No Primary Care Physician Hot Man: Signed Normal [facility] D-Dimer Quantitative (DVT/PE )on 07-12-2024 D-DIMER QUANT 0.31 FEU/ug/m Normal 0.27-0.49 [facility] Comment on above: Result Comment: NORM AL D-Dimer level (<0.50) indicates no DVT or PE. Performed By: #### L 300.3724 ####[facility] [address] [place], [address] Emergency Department Summary on 07-12-2024 Emergency Department Summary [facility] Medical Records Department [address] [place] [address] Emergency Department Summary 07/12/24 MR#: [id number] Acct: [id number] Name: JUDSON DE LA CRUZ Rep #: [id number] : 1980 44 From: Héctor Danielle DO PCP: Care Physician,No Primary Status:DEP ER Location: ED HPI History of Present Illness Chief Complaint: Chest Pain Narrative Narrative: Chief complaint and HPI: Chest pain. 44-year-old female with history of DM, hypothyroidism, HLD presents for evaluation of chest pain. Patient states that she is currently residing at the [facility]. She states after eating supper today her acid reflux started to act up in which she took medication for this. She states when she went to lay down to go to sleep she developed chest pain. She describes it as sharp as well as tight. She states that it was intermittent in nature but given that it did not improve she went to the office and was concerned it was her acid reflux. They called EMS patient states she is still having some mild chest tightness. She states that her pain has improved. She was not given anything by EMS. Patient denies tobacco abuse. She denies any fever, chills, URI symptoms, cough, shortness of breath, abdominal pain, nausea, vomiting, diarrhea. Patient states that she sort of feels similar to her acid reflux. Review of systems: See HPI Medications: As listed on the chart Allergies: As listed on the chart PFSH: Per chart Vital signs: As listed on the chart. Reviewed. Physical exam: Gen: A O x3, NAD Head: Normocephalic, atraumatic Eyes: No sclera icterus, conjunctiva clear ENT: Moist mucous membranes Neck: Trachea midline, No JVD CV: RRR, no murmurs, no peripheral edema Resp: Lungs CTA BL, no w/r/c GI: Abd soft, non-distended, non-tender, no r/r/g Musc: Full ROM, no deformity Skin: Warm, dry Neuro: Alert, oriented, grossly intact, sensation intact Psych: Cooperative, appropriate mood and affect [facility] Medical History Arthritis Scoliosis Hypercholesterolemia Hypothyroidism Diabetes Migraine Home Medications ???Medication ???Instructions ???Recorded ???Last Taken ???Type levothyroxine 100 mcg tablet 100 mcg PO QDAY 07/01/24 Unknown History metformin 500 mg tablet 500 mg PO QDAY 07/01/24 Unknown History atorvastatin 40 mg tablet 40 mg PO DAILY 07/12/24 Unknown History omega 4-qkn-icy-fish oil 100 2 cap PO DAILY 07/12/24 Unknown History mg-160 mg-1,000 mg capsule (Fish Oil) Allergy/AdvReac Type Severity Reaction Status Date / Time acetaminophen (From Vicodin) Allergy Mild Nausea Verified 07/12/24 00:17 hydrocodone (From Vicodin) Allergy Mild Nausea Verified 07/12/24 00:17 Sulfa (Sulfonamide Allergy Mild Rash Verified 07/12/24 00:17 Antibiotics) Family History Mother Scoliosis Other Cancer Heart disease Hypertension Surgical History Hx of cholecystectomy Social History housing: homeless Smoking Status: Never smoker alcohol intake: never what type of physical activity do you participate in: walking do you feel safe at home: No (sometimes) EXAM Physical Exam Const Vital Signs: 07/12/24 00:17 07/12/24 00:20 07/12/24 00:30 Temperature 98.1 F Temperature Source Oral Pulse Rate 77 74 Respiratory Rate 17 11 L Respiratory Effort Normal Blood Pressure 139/84 H Blood Pressure Mean 102 Pulse Ox 98 Oxygen Delivery Method Room Air 07/12/24 00:35 07/12/24 00:45 07/12/24 01:17 Temperature Temperature Source Pulse Rate 73 66 Respiratory Rate 14 15 Respiratory Effort Blood Pressure 122/70 H Blood Pressure Mean 87 Pulse Ox 98 Oxygen Delivery Method Room Air Room Air 07/12/24 01:49 07/12/24 01:50 07/12/24 02:00 Temperature Temperature Source Pulse Rate 69 58 L Respiratory Rate 16 14 Respiratory Effort Blood Pressure 122/70 H 119/78 Blood Pressure Mean 87 90 Pulse Ox 99 100 96 Oxygen Delivery Method 07/12/24 02:15 07/12/24 02:30 07/12/24 02:45 Temperature Temperature Source Pulse Rate 60 63 65 Respiratory Rate 15 15 15 Respiratory Effort Blood Pressure 113/76 109/69 128/76 H Blood Pressure Mean 88 82 92 Pulse Ox 98 98 98 Oxygen Delivery Method 07/12/24 03:00 07/12/24 03:21 Temperature 98.0 F Temperature Source Pulse Rate 64 68 Respiratory Rate 16 17 Respiratory Effort Blood Pressure 129/78 H 127/79 H Blood Pressure Mean 92 95 Pulse Ox 98 98 Oxygen Delivery Method MDM MDM MDM Narrative Medical dec (more content not included)... Normal [facility] L501.4020on 07-12-2024 TROPONIN-I HS < 3 Low 3.0-54.0 [facility] Comment on above: Result Comment: Pleshae le Note: New Test Units and Gender Specific Reference Ranges. For more information see Policy Stat Procedure Odd High Sensitivity Troponin (TNIH) and attachments. Performed By: #### L 501.4020 #### [facility] Laboratory [address] [facility] [facility] [facility] [place], [place], [address] l501.5425on 07-12-2024 TROPONIN-I HS 3 pg/mL Normal 3.0-54.0 [facility] Comment on above: Order Comment: 1Y Result Comment: Pleshae le Note: New Test Units and Gender Specific Reference Ranges. For more information see Policy Stat Procedure Odd High Sensitivity Troponin (TNIH) and attachments. Performed By: #### L 501.5425, L500.2500, L100.0100 ####[facility] [address] [facility] [place], [place], [address] [facility] Telephone ([facility]) -------- JUDSON DE LA CRUZ ([id number]) 1980 F Date Time Provider Department 07/05/24 [facility] During your visit today, we recorded the following information about you: Herminia Hills RN 07/05/2024 8:15 AM Signed Patient calls and states that she was seen in [facility] care on 07/02/2024 and was prescribed prednisone. Patient reports that she started taking prednisone yesterday as prescribed and had a weird reaction where she was nausea, lightheaded, and dizzy. Patient states that she went to ER for this. Patient asking if she can take only one tablet since the prescription was for 2 tablets? Patient continues to have a headache. Please review and advise, ZULLY Kowalski Cara R, PAFrancesC 07/05/2024 8:32 AM Signed I didn't evaluate her for a headache, she was seen for knee and back pain. I wouldn't advise taking the prednisone if she had htat reaction. Follow up with ortho/pcp. Herminia Hills RN 07/05/2024 9:44 AM Signed Patient notified of provider's instructions. Patient verbalizes understanding. Herminia Hills RN Allergies As of Date: 07/05/2024 Noted Allergy Reaction ADHESIVE TAPE (ROSINS) 03/14/2024 14 - Other: See Comments ADHESIVE TAPE-SILICONES 12/09/2021 2 - Rash CEPHALEXIN 12/09/2021 2 - Rash DOXYCYCLINE 03/06/2017 4 - Hives 14 - Other: See Comments 2 - Rash Comments: Patient c/o dizziness, rash and then hives HYDROCODONE-ACETAMINOPHE N 09/24/2009 14 - Other: See Comments HYDROCODONE-GUAIFENESIN 03/14/2024 16 - Unknown SULFA (SULFONAMIDE ANTIBIOTICS) 12/09/2021 4 - Hives 14 - Other: See Comments 16 - Unknown SULFAMETHOXAZOLE 12/09/2021 8 - GI Upset Date Reviewed: 07/02/2024 Reviewed by: Flora Morfin LPN - Fully Assessed Reason for Visit: Patient Question [1477] Prescriptions as of 07/05/2024 - predniSONE (DELTASONE) 20 mg tablet Take 2 tablets by mouth once daily for 5 days. - cyclobenzaprine (FLEXERIL) 10 mg tablet Take 1 tablet by mouth three times a day as needed for muscle spasm. - atorvastatin calcium (LIPITOR ORAL) Take by mouth. - hydrOXYzine HCl (ATARAX) 25 mg tablet Take 25 mg by mouth. - medroxyPROGESTERone (PROVERA) 10 mg tablet Take by mouth every 24 hours. - metFORMIN (GLUCOPHAGE) 500 mg tablet Take 1 tablet by mouth two times a day. - meloxicam (MOBIC) 15 mg tablet Take 15 mg by mouth once daily. - albuterol HFA (PROVENTIL HFA, VENTOLIN HFA) 90 mcg/actuation inhaler Inhale 2 Puffs as instructed every 4 hours as needed for wheezing/shortness of breath. - Cholecalciferol, Vitamin D3, (D3-2000) 50 mcg (2,000 unit) cap Take by mouth. - hydrocortisone-pramoxine (PRAMOX) 25-18 mg suppository 1 Suppository by RECTAL route two times a day. - loperamide (IMODIUM) 2 mg cap(s) Take 1 capsule by mouth four times a day as needed for up to 7 days. - levothyroxine (SYNTHROID) 100 mcg tablet Take 1 tablet by mouth once daily. - permethrin (ELIMITE) 5 % cream APPLY AND WASH OFF IN 8 TO 10 HOURS IF NOT BETTER IN ONE WEEK REPEAT TREATMENT - cyanocobalamin (VITAMIN B-12) 500 mcg ORAL Tab Take 1 tablet by mouth once daily. Problem List As Of Date 07/05/2024 Noted Resolved Type 2 diabetes mellitus without complication, * Hypothyroid [E03.9] Irregular Menses [N92.6] PCOD (polycystic ovarian disease) [E28.2] 05/25/2016 Hyperlipidemia [E78.5] 05/25/2016 Gallstones [K80.20] Dysmetabolic Syndrome [E88.810] Obesity [E66.9] Depression [F32.A] Vitamin D deficiency [E55.9] 08/30/2010 Hypothyroidism [E03.9] 04/11/2018 Obesity, Class III, BMI 40-49.9 (morbid obesity*12/09/2021 Impaired fasting glucose [R73.01] 12/29/2021 Cervical radiculopathy [M54.12] 11/03/2023 Lumbar radiculopathy [M54.16] 11/03/2023 DDD (degenerative disc disease), lumbar [M51.36*11/03/2023 Muscle weakness [M62.81] 11/17/2023 02/19/2024 Pain in joint, multiple sites [M25.50] 11/17/2023 02/19/2024 Acute traumatic internal derangement of left kn*03/14/2024 03/14/2024 Abnormal uterine bleeding [N93.9] 03/14/2024 03/14/2024 Acute cough [R05.1] 07/10/2023 03/14/2024 Acute sinusitis [J01.90] 03/14/2024 03/14/2024 Allergic rhinitis [J30.9] 03/14/2024 03/14/2024 Ankle pain [M25.579] 03/14/2024 03/14/2024 Constipation [K59.00] 03/14/2024 03/14/2024 Derangement of left knee [M23.92] 03/14/2024 03/14/2024 Diarrhea [R19.7] 08/04/2023 03/14/2024 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 Normal [facility] Basic Metabolic Profile (BMP )on 07-04-2024 BUN/CRE 12.6 RATIO Normal 10-20 [facility] Comment on above: Performed By: #### L 501.9520, L100.0100, L500.2500 #### [facility] [address] [place], [address] CA,Total 9.8 mg/dL Normal 8.5-10.1 [facility] Comment on above: Performed By: #### L 501.9520, L100.0100, L500.2500 #### [facility] [address] [place], [address] Chloride [Moles/Vol] 104 mmol/L Normal 98-107 [facility] Comment on above: Performed By: #### L 501.9520, L100.0100, L500.2500 #### [facility] [address] [place], [address] CO2 [Moles/Vol] 28.0 mmol/L Normal 21.0-32.0 [facility] Comment on above: Performed By: #### L 501.9520, L100.0100, L500.2500 #### [facility] [address] [place], [address] Creatinine [Mass/Vol] 0.95 mg/dL Normal 0.55-1.02 [facility] Comment on above: Result Comment: The validity of the calculated GFR GFRAA in patients over 70 years has not been determined. Clinical correlation is essential. Performed By: #### L 501.9520, L100.0100, L500.2500 #### [facility] [address] [place], [address] ECRCL 82.99 ml/min Normal [facility] Comment on above: Performed By: #### L 501.9520, L100.0100, L500.2500 #### [facility] [address] [place], [address] EST GFR - AA 82 mL/min Normal >60 [facility] Comment on above: Result Comment: Afri can [place] GFR Calc Performed By: #### L 501.9520, L100.0100, L500.2500 #### [facility] [address] [place], [address] GAP 6 Normal 5-15 [facility] Comment on above: Performed By: #### L 501.9520, L100.0100, L500.2500 #### [facility] [address] [place], [address] GFR/1.73 sq M.predicted among non-blacks MDRD (S/P/Bld) [Vol rate/Area] 68 mL/min/{1.73_m2} Normal >60 [facility] Comment on above: Result Comment: Non- GFR Calc Performed By: #### L 501.9520, L100.0100, L500.2500 #### [facility] [address] [place], [address] Glucose [Mass/Vol] 142 mg/dL High 74-106 [facility] Comment on above: Result Comment: Fast ing Glucose result greater than or equal to 126 mg/dL suggests DIABETES MELLITUS per A.D.A. criteria. Performed By: #### L 501.9520, L100.0100, L500.2500 #### [facility] [address] [place], [address] Potassium [Moles/Vol] 4.2 mmol/L Normal 3.5-5.1 [facility] Comment on above: Performed By: #### L 501.9520, L100.0100, L500.2500 #### [facility] [address] [place], [address] Sodium [Moles/Vol] 138 mmol/L Normal 136-145 [facility] Comment on above: Performed By: #### L 501.9520, L100.0100, L500.2500 #### [facility] [address] [place], [address] Urea nitrogen [Mass/Vol] 12 mg/dL Normal 7-18 [facility] Comment on above: Performed By: #### L 501.9520, L100.0100, L500.2500 #### [facility] [address] [place], [address] CBC W/Diff, Automatedon 06-21 Absolute Lymph 0.86 X10 3/uL Normal 0.83-4.51 [facility] Comment on above: Performed By: #### L 501.9520, L100.0100, L500.2500 #### [facility] [address] [place], [address] Absolute Neut 6.4 X10 3/uL Normal 2.0-7.7 [facility] Comment on above: Performed By: #### L 501.9520, L100.0100, L500.2500 #### [facility] [address] [place], [address] Basophils/100 WBC (Bld) 0.3 % Normal 0-1 [facility] Comment on above: Performed By: #### L 501.9520, L100.0100, L500.2500 #### [facility] [address] [place], [address] Eosinophils/100 WBC (Bld) 0.9 % Normal 0-5 [facility] Comment on above: Performed By: #### L 501.9520, L100.0100, L500.2500 #### [facility] [address] [place], [address] Erythrocyte distribution width (RBC) [Ratio] 15.2 % High 11.6-14.6 [facility] Comment on above: Performed By: #### L 501.9520, L100.0100, L500.2500 #### [facility] [address] [place], [address] Hematocrit (Bld) [Volume fraction] 42.5 % Normal 37-47 [facility] Comment on above: Performed By: #### L 501.9520, L100.0100, L500.2500 #### [facility] [address] [place], [address] Hemoglobin (Bld) [Mass/Vol] 13.8 g/dL Normal 12.0-15.0 [facility] Comment on above: Performed By: #### L 501.9520, L100.0100, L500.2500 #### [facility] [address] [place], [address] IG% 0.500 Normal 0.0-0.9 [facility] Comment on above: Result Comment: IG% - Immature Granulocytes (promyelocytes, myelocytes and metamyelocytes) > 1% indicates that a LEFT SHIFT is Present. Performed By: #### L 501.9520, L100.0100, L500.2500 #### [facility] [address] [place], [address] Lymphocytes/100 WBC (Bld) 11.4 % Low 19-41 [facility] Comment on above: Performed By: #### L 501.9520, L100.0100, L500.2500 #### [facility] [address] [place], [address] MCH (RBC) [Entitic mass] 29.9 pg Normal 27.0-32.0 [facility] Comment on above: Performed By: #### L 501.9520, L100.0100, L500.2500 #### [facility] [address] [place], [address] MCHC (RBC) [Mass/Vol] 32.5 g/dL Normal 32-36 [facility] Comment on above: Performed By: #### L 501.9520, L100.0100, L500.2500 #### [facility] [address] [place], [address] MCV (RBC) [Entitic vol] 92.2 fL Normal 81-99 [facility] Comment on above: Performed By: #### L 501.9520, L100.0100, L500.2500 #### [facility] [address] [place], [address] Monocytes/100 WBC (Bld) 1.7 % Normal 0-10 [facility] Comment on above: Performed By: #### L 501.9520, L100.0100, L500.2500 #### [facility] [address] [place], [address] Neutrophils/100 WBC (Bld) 85.2 % High 47-70 [facility] Comment on above: Performed By: #### L 501.9520, L100.0100, L500.2500 #### [facility] [address] [place], [address] Nucleated RBC (Bld) [#/Vol] 0 10*3/uL Normal 0-5 [facility] Comment on above: Performed By: #### L 501.9520, L100.0100, L500.2500 #### [facility] [address] [place], [address] Platelet mean volume (Bld) [Entitic vol] 10.0 fL Normal 6.2-12.0 [facility] Comment on above: Performed By: #### L 501.9520, L100.0100, L500.2500 #### [facility] [address] [place], [address] Platelets (Bld) [#/Vol] 283 10*3/uL Normal 150-450 [facility] Comment on above: Performed By: #### L 501.9520, L100.0100, L500.2500 #### [facility] [address] [place], [address] RBC (Bld) [#/Vol] 4.61 10*6/uL Normal 4.2-5.4 [facility] Comment on above: Performed By: #### L 501.9520, L100.0100, L500.2500 #### [facility] [address] [place], [address] RDW SD 51.3 fl High 35.1-43.9 [facility] Comment on above: Performed By: #### L 501.9520, L100.0100, L500.2500 #### [facility] [address] [place], [address] WBC (Bld) [#/Vol] 7.6 10*3/uL Normal 4.4-11.0 [facility] Comment on above: Performed By: #### L 501.9520, L100.0100, L500.2500 #### [facility] [address] [place], [address] Emergency Department Summary on 07-04-2024 Emergency Department Summary [facility] Medical Records Department [address] [place] [address] Emergency Department Summary 07/04/24 MR#: [id number] Acct: [id number] Name: JUDSON DE LA CRUZ Rep #: [id number] : 1980 44 From: Richy Contreras MD PCP: Care Physician,No Primary Status:REG ER Location: ED HPI History of Present Illness Chief Complaint: Dizziness Detail of Chief Complaint: Dizziness, which patient defines as lightheadedness, fatigue and HPI narrat Informant: patient Onset/Context/Timing Onset: Days Context: Gradual Onset Timing: Continuous and Waxes and wanes Quality: Detailed narrative portion of the EMR Location: Generalized Current Severity: Mild Maximum Severity: Moderate Worsened by: Nothing specific Relieved by: Nothing Associated Symptoms Associated Symptoms: Fatigue, lack of energy Narrative Narrative: patient is a 44-year-old woman. She is presently residing at the [facility]. [place]. She states when asked that it is a long story and did not want to elaborate why she is now in [facility]. She states she is compliant with her medications which include levothyroxine and metformin. She is diabetic. Has not checked her blood sugar recently. She denies fever, chills night sweats. She denies headache. She denies double vision loss of vision question mild blurred vision. The blurred vision is by ocular. She denies ringing or ears decreased hearing. Denies trouble with speech or swallowing. She denies neck pain or neck stiffness. She denies chest pain, shortness of breath, orthopnea or PND. She denies abdominal pain, nausea, vomiting or diarrhea. She denies hematemesis, melena hematochezia. She denies dysuria, frequency, urgency or hematuria. She has no signs or symptoms of . Last menses 2 weeks ago. With respect to the dizziness she states it started after she was prescribed prednisone for her arthritis/knee pain. She did not define dizziness as spinning sensation or problems with coordination or balance. She states specifically it was lightheadedness. Prior similar symptoms: No Recent Illness/Hospitalization: No PFSH PFSH Medical History Arthritis Scoliosis Hypercholesterolemia Hypothyroidism Diabetes Migraine Home Medications ???Medication ???Instructions ???Recorded ???Last Taken ???Type cholecalciferol (vitamin D3) 25 25 mcg PO QDAY 07/01/24 Unknown History mcg (1,000 unit) capsule levothyroxine 100 mcg tablet 100 mcg PO QDAY 07/01/24 Unknown History metformin 500 mg tablet 500 mg PO QDAY 07/01/24 Unknown History Allergy/AdvReac Type Severity Reaction Status Date / Time acetaminophen (From Vicodin) Allergy Mild Nausea Verified 07/04/24 13:06 hydrocodone (From Vicodin) Allergy Mild Nausea Verified 07/04/24 13:06 Sulfa (Sulfonamide Allergy Mild Rash Verified 07/04/24 13:06 Antibiotics) Family History Mother Scoliosis Other Cancer Heart disease Hypertension Surgical History Hx of cholecystectomy Social History housing: homeless Smoking Status: Never smoker alcohol intake: never what type of physical activity do you participate in: walking do you feel safe at home: No (sometimes) ROS ROS ED Constitutional Constitutional ED: Denies chills, fever(s), subjective, sweats or weight loss Eyes Eyes: Reports blurry vision bilateral; Denies change in vision or diplopia ENT ENT ED: Denies ear pain, rhinorrhea or sore throat Cardiovascular Cardiovascular: Denies chest pain, orthopnea, palpitations or paroxysmal nocturnal dyspnea Respiratory/Chest Respiratory/Chest: Denies cough, dyspnea, dyspnea on exertion, orthopnea or paroxysmal nocturnal dyspnea Gastrointestinal Gastrointestinal: Denies abdominal pain, diarrhea, melena, nausea or vomiting Genitourinary Genitourinary ED: Denies dysuria, hematuria or urinary frequency Musculoskeletal Musculoskeletal: Denies arthralgias, back pain, myalgias or neck pain Integumentary Denies abscess, Abrasions or rash Neurologic Neurologic: Denies headache(s), paresthesias or weakness Psychiatric Psychiatric: Denies anxiety or depression Hematologic/Lymphatic Hematologic/Lymphatic: Reports systems reviewed and no addt'l complaints, except as documented Allergic/Immunologic Allergic/Immunologic ED: Denies mouth swelling or tongue swelling EXAM Physical Exam Const Vital Signs: 07/04/24 13:06 07/04/24 15:05 07/04/24 15:05 Temperature 97.7 F L Temperature Source Oral Pulse Rate 68 65 Pulse Rate [Lying] 65 Pulse Rate [Sitting (for 1 minute prior to obtaining)] 70 Pulse Rate [Inderjit (more content not included)... Normal [facility] Thyroid Stim Hormone (TSH)on 07-04-2024 TSH 1.280 uIU/mL Normal 0.358-3.740 [facility] Comment on above: Performed By: #### L 501.3921, L100.0100, L500.2500 #### [facility] [address] [place], [address] CNOVon 07-02-2024 CNOV Office Visit ([facility]WSTR ) -------- JUDSON DE LA CRUZ ([id number]) 1980 F Date Time Provider Department 07/02/24 7:45 AM [facility] During your visit today, we recorded the following information about you: Temperature Pulse Respiration Blood pressure 97.6 degrees 80/minute 18/minute 118/78 Weight 107.7 kg Chet Zhu PA-C 07/02/2024 9:39 AM Signed This note was created using [employer]. Subjective Judson De La Cruz is a 44 year old female. HPI Patient presents with a chief complaint of right knee pain as well as lower back pain which is chronic. She actually had just seen the orthopedic doctor yesterday for her knee pain. He had recommended physical therapy and losing weight. She states he did not write a prescription for pain medication. She would like an anti-inflammatory, has been taking ibuprofen with some relief. Denies any new injury to her knee however is living [facility] the [facility] and states they do make her do some chores there which seems to be flaring it up. She also is complaining of right lower back pain into her right buttock. She has had problems with sciatica several times and has seen pain management and had injections in her back before. No weakness numbness or tingling in her legs. She is able to ambulate. Review of Systems Musculoskeletal: Positive for back pain. Right knee pain All other systems reviewed and are negative. 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 Hemorrhoids 03/18/2018 Herpes zoster 03/14/2024 Hyperglycemia 03/14/2024 Hyperlipidemia Hypothyroid 08/21/1998 Irregular menses Knee pain 03/14/2024 Comment on above: KNEE PAIN Major depressive disorder, recurrent,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 CNOV Office Visit (UCWSTR ) -------- JUDSON DE LA CRUZ ([id number]) 1980 F Date Time Provider Department 04/03/24 1:15 PM LIZ SUÁREZ [facility] During your visit today, we recorded the following information about you: Temperature Pulse Respiration Blood pressure 98.2 degrees 86/minute 21/minute 102/64 Weight 101 kg Liz Suárez APRN.COMMUNITY LIAISON 04/03/2024 1:28 PM Signed This note was created using NoteWriter. Subjective Judson De La Cruz is a 43 year old female. 43 year old female with PMH hyperlipidemia, thyroid, DM, PCOS, DDD, and depression presents for illness. Acute onset She was seen here on 03/27/24. At that time diagnosed with bronchitis for complaints of sore throat, cough and headache CXR negative Strep and COVID negative She was prescribed a Zpack Completed States that her ear pain is newly developed over past couple days +popping +muffled Endorses she used hydrogen peroxide The history is provided by the patient. No repair department manager was used. Ear Problem There is pain in the right ear. This is a new problem. The current episode started in the past 7 days. The problem occurs constantly. The problem has been unchanged. There has been no fever. The pain is at a severity of 6/10. The pain is moderate. Associated symptoms include coughing, headaches, a sore throat and vomiting. Pertinent negatives include no abdominal pain, diarrhea, ear discharge, hearing loss, neck pain, rash or rhinorrhea. Treatments tried: ATB and placed hydrogen peroxide in ear. The treatment provided no relief. There is no history of a chronic ear infection, hearing loss or a tympanostomy tube. 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: Hemorrhoids 03/14/2024: Herpes zoster 03/14/2024: Hyperglycemia No date: Hyperlipidemia 08/21/1998: Hypothyroid No date: Irregular menses 03/14/2024: Knee pain Comment: Comment on above: KNEE PAIN 05/23/2023: Major depressive disorder, recurrent, moderate (HCC) 03/14/2024: Muscle spasms of neck 11/17/2023: Muscle weakness 11/17/2023: Muscle weakness (generalized) No date: Obesity 11/03/2023: Other intervertebral disc degeneration, lumbar region 09/04/2023: Other specified diseases of anus and rectum 11/17/2023: Pain in joint, multiple sites 12/06/2022: Pain in right hip 11/17/2023: Pain in unspecified joint 03/14/2024: Papanicolaou smear of cervix with atypical squamous cells cannot exclude high grade squamous intraepithelial lesion (ASC-H) 07/10/2023: Pleurodynia No date: Polycystic disease, ovaries 11/03/2023: Radiculopathy, cervical region 03/14/2024: Rash 03/14/2024: Somatic dysfunction of cervical region 03/14/2024: Somatic dysfunction of head region 03/14/2024: Spasm of cervical paraspinous muscle 03/14/2024: Strain of hamstring muscle 03/14/2024: Tension type headache 12/06/2022: Type 2 diabetes mellitus without complications (HCC) 03/14/2024: Vaginal odor PAST SURGICAL HISTORY No date: CHOLECYSTECTOMY No date: ORAL SURGERY PROCEDURE Comment: all teeth pulled No date: wisdom teeth ALLERGIES Adhesive Tape (Rosins), Adhesive Tape-Silicones, Cephalexin, Doxycycline, Hydrocodone-Acetaminophe n, Hydrocodone-Guaifenesin, Sulfa (Sulfonamide Antibiotics), and Sulfamethoxazole MEDICATIONS atorvastatin calcium (LIPITOR ORAL) Take by mouth. metFORMIN (GLUCOPHAGE) 500 mg tablet Take 1 tablet by mouth two times a day. albuterol HFA (PROVENTIL HFA, VENTOLIN HFA) 90 mcg/actuation inhaler Inhale 2 Puffs as instructed every 4 hours as needed for wheezing/shortness of breath. Cholecalciferol, Vitamin D3, (D3-2000) 50 mcg (2,000 unit) cap Take by mouth. levothyroxine (SYNTHROID) 100 mcg tablet Take 1 tablet by mouth once daily. cyanocobalamin (VITAMIN B-12) 500 mcg ORAL Tab Take 1 tablet by mouth once daily. cefdinir (OMNICEF) 300 mg capsule Take 1 capsule by mouth two times a day for 7 days. hydrOXYzine HCl (ATARAX) 25 mg tablet Take 25 mg by mouth. (Patient not taking: Reported on 04/03/2024) medroxyPROGESTERone (PROVERA) 10 mg tablet Take by mouth every 24 hours. (Patient not taking: Reported on 03/27/2024) meloxicam (MOBIC) 15 mg tablet Take 15 mg by mouth once daily. (Patient not taking: Reported on 04/03/2024) hydrocortisone-pramoxine (PRAMOX) 25-18 mg supp (more content not included)... Normal [facility] 03-28-2024 CNPN Telephone (FAMPWS) -------- JONOJUDSON ([id number]) 1980 F Date Time Provider Department 03/28/24 NO PCP FAMPWS During your visit today, we recorded the following information about you: Belinda Bills RN 03/28/2024 11:12 AM Signed Patient calling for recent test results. Results given: Betsy Cleary MD 03/27/2024 7:26 PM EDT Back to Top Patient notified of negative COVID, Influenza, and [facility] Belinda Bills RN Allergies As of Date: 03/28/2024 Noted Allergy Reaction ADHESIVE TAPE (ROSINS) 03/14/2024 14 - Other: See Comments ADHESIVE TAPE-SILICONES 12/09/2021 2 - Rash CEPHALEXIN 12/09/2021 2 - Rash DOXYCYCLINE 03/06/2017 4 - Hives 14 - Other: See Comments 2 - Rash Comments: Patient c/o dizziness, rash and then hives HYDROCODONE-ACETAMINOPHE N 09/24/2009 14 - Other: See Comments HYDROCODONE-GUAIFENESIN 03/14/2024 16 - Unknown SULFA (SULFONAMIDE ANTIBIOTICS) 12/09/2021 4 - Hives 14 - Other: See Comments 16 - Unknown SULFAMETHOXAZOLE 12/09/2021 8 - GI Upset Date Reviewed: 03/27/2024 Reviewed by: Olya Hayden MA - Fully Assessed Reason for Visit: Results [95] Prescriptions as of 03/28/2024 - atorvastatin calcium (LIPITOR ORAL) Take by mouth. - azithromycin (ZITHROMAX Z-DONALD) 250 mg tablet Take 2 tablets day one, then, 1 tablet daily until gone. - hydrOXYzine HCl (ATARAX) 25 mg tablet Take 25 mg by mouth. - medroxyPROGESTERone (PROVERA) 10 mg tablet Take by mouth every 24 hours. - metFORMIN (GLUCOPHAGE) 500 mg tablet Take 1 tablet by mouth two times a day. - meloxicam (MOBIC) 15 mg tablet Take 15 mg by mouth once daily. - albuterol HFA (PROVENTIL HFA, VENTOLIN HFA) 90 mcg/actuation inhaler Inhale 2 Puffs as instructed every 4 hours as needed for wheezing/shortness of breath. - Cholecalciferol, Vitamin D3, (D3-2000) 50 mcg (2,000 unit) cap Take by mouth. - hydrocortisone-pramoxine (PRAMOX) 25-18 mg suppository 1 Suppository by RECTAL route two times a day. - loperamide (IMODIUM) 2 mg cap(s) Take 1 capsule by mouth four times a day as needed for up to 7 days. - levothyroxine (SYNTHROID) 100 mcg tablet Take 1 tablet by mouth once daily. - permethrin (ELIMITE) 5 % cream APPLY AND WASH OFF IN 8 TO 10 HOURS IF NOT BETTER IN ONE WEEK REPEAT TREATMENT - cyanocobalamin (VITAMIN B-12) 500 mcg ORAL Tab Take 1 tablet by mouth once daily. Problem List As Of Date 03/28/2024 Noted Resolved Type 2 diabetes mellitus without complication, * Hypothyroid [E03.9] Irregular Menses [N92.6] PCOD (polycystic ovarian disease) [E28.2] 05/25/2016 Hyperlipidemia [E78.5] 05/25/2016 Gallstones [K80.20] Dysmetabolic Syndrome [E88.810] Obesity [E66.9] Depression [F32.A] Vitamin D deficiency [E55.9] 08/30/2010 Hypothyroidism [E03.9] 04/11/2018 Obesity, Class III, BMI 40-49.9 (morbid obesity*12/09/2021 Impaired fasting glucose [R73.01] 12/29/2021 Cervical radiculopathy [M54.12] 11/03/2023 Lumbar radiculopathy [M54.16] 11/03/2023 DDD (degenerative disc disease), lumbar [M51.36]11/03/2023 Muscle weakness [M62.81] 11/17/2023 02/19/2024 Pain in joint, multiple sites [M25.50] 11/17/2023 02/19/2024 Acute traumatic internal derangement of left kn*03/14/2024 03/14/2024 Abnormal uterine bleeding [N93.9] 03/14/2024 03/14/2024 Acute cough [R05.1] 07/10/2023 03/14/2024 Acute sinusitis [J01.90] 03/14/2024 03/14/2024 Allergic rhinitis [J30.9] 03/14/2024 03/14/2024 Ankle pain [M25.579] 03/14/2024 03/14/2024 Constipation [K59.00] 03/14/2024 03/14/2024 Derangement of left knee [M23.92] 03/14/2024 03/14/2024 Diarrhea [R19.7] 08/04/2023 03/14/2024 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 03/14/2024 Hemorrhoids [K64.9] 03/18/2018 03/14/2024 Herpes zoster [B02.9] 03/14/2024 03/14/2024 Hyperglycemia [R73.9] 03/14/2024 03/14/2024 Muscle spasms of neck [M62.838] 03/14/2024 03/14/2024 Papanicolaou smear of cervix with atypical squa*03/14/2024 03/14/2024 Rash [R21] 03/14/2024 03/14/2024 Somatic dysfunction of cervical region [M99.01] 03/14/2024 03/14/2024 Somatic dysfunction of head region [M99.00] 03/14/2024 03/14/2024 Spasm of cervical paraspinous muscle [M62.838] 03/14/2024 03/14/2024 Strain of hamstring muscle [S76.319A] 03/14/2024 03/14/2024 Tension type headache [G44.209] 03/14/2024 03/14/2024 Vaginal odor [N89.8] 03/14/2024 03/14/2024 Allergy status to sulfonamides [Z88.2] 12/06/2022 03/14/2024 Muscle weakness (generalized) [M62.81] 11/17/2023 03/14/2024 Blister [T14.8XXA] 07/14/2023 03/14/2024 Other intervertebral disc degeneration, lumbar *11/03/2023 03/14/2024 Pain in right hip [M25.551] 12/06/2022 03/14/2024 Pain in unspecified joint [M25.50] 11/17/2023 03/14/2024 Type 2 diabetes mellitus without complications *12/06/2022 03/14/2024 Dysfunctional uterine bleeding [N93.8] 03/14/2024 03/14/2024 Knee pain [M25.569] 03/14/2024 03/14/2024 Other specified diseas (more content not included)... Normal [facility] CNOVon 03-27-2024 CNOV Office Visit (UCWSTR ) -------- JUDSON DE LA CRUZ ([id number]) 1980 F Date Time Provider Department 03/27/24 8:45 AM EMILY ALEXIS [facility] During your visit today, we recorded the following information about you: Temperature Pulse Respiration Blood pressure 98.7 degrees 110/minute 18/minute 108/70 Weight 100.7 kg Emily Alexis APRN.CNP 03/27/2024 9:16 AM Signed Subjective HPI Judson presents with a 5 day hx of cough, sore throat and chest congestion.She states she has a hx of asthma and she feels her symptoms are worsening. She states she has been using her previously prescribed albuterol a few times a day and otc cough and cold medicine. She currently lives in a homeless nursing home and is not aware of any sick contacts. 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: Hemorrhoids 03/14/2024: Herpes zoster 03/14/2024: Hyperglycemia No date: Hyperlipidemia 08/21/1998: Hypothyroid No date: Irregular menses 03/14/2024: Knee pain Comment: Comment on above: KNEE PAIN 05/23/2023: Major depressive disorder, recurrent, moderate (HCC) 03/14/2024: Muscle spasms of neck 11/17/2023: Muscle weakness 11/17/2023: Muscle weakness (generalized) No date: Obesity 11/03/2023: Other intervertebral disc degeneration, lumbar region 09/04/2023: Other specified diseases of anus and rectum 11/17/2023: Pain in joint, multiple sites 12/06/2022: Pain in right hip 11/17/2023: Pain in unspecified joint 03/14/2024: Papanicolaou smear of cervix with atypical squamous cells cannot exclude high grade squamous intraepithelial lesion (ASC-H) 07/10/2023: Pleurodynia No date: Polycystic disease, ovaries 11/03/2023: Radiculopathy, cervical region 03/14/2024: Rash 03/14/2024: Somatic dysfunction of cervical region 03/14/2024: Somatic dysfunction of head region 03/14/2024: Spasm of cervical paraspinous muscle 03/14/2024: Strain of hamstring muscle 03/14/2024: Tension type headache 12/06/2022: Type 2 diabetes mellitus without complications (HCC) 03/14/2024: Vaginal odor PAST SURGICAL HISTORY No date: CHOLECYSTECTOMY No date: ORAL SURGERY PROCEDURE Comment: all teeth pulled No date: wisdom teeth ALLERGIES Adhesive Tape (Rosins), Adhesive Tape-Silicones, Cephalexin, Doxycycline, Hydrocodone-Acetaminophe n, Hydrocodone-Guaifenesin, Sulfa (Sulfonamide Antibiotics), and Sulfamethoxazole MEDICATIONS hydrOXYzine HCl (ATARAX) 25 mg tablet Take 25 mg by mouth. metFORMIN (GLUCOPHAGE) 500 mg tablet Take 1 tablet by mouth two times a day. meloxicam (MOBIC) 15 mg tablet Take 15 mg by mouth once daily. albuterol HFA (PROVENTIL HFA, VENTOLIN HFA) 90 mcg/actuation inhaler Inhale 2 Puffs as instructed every 4 hours as needed for wheezing/shortness of breath. Cholecalciferol, Vitamin D3, (D3-2000) 50 mcg (2,000 unit) cap Take by mouth. hydrocortisone-pramoxine (PRAMOX) 25-18 mg suppository 1 Suppository by RECTAL route two times a day. loperamide (IMODIUM) 2 mg cap(s) Take 1 capsule by mouth four times a day as needed for up to 7 days. levothyroxine (SYNTHROID) 100 mcg tablet Take 1 tablet by mouth once daily. cyanocobalamin (VITAMIN B-12) 500 mcg ORAL Tab Take 1 tablet by mouth once daily. atorvastatin calcium (LIPITOR ORAL) Take by mouth. medroxyPROGESTERone (PROVERA) 10 mg tablet Take by mouth every 24 hours. (Patient not taking: Reported on 03/27/2024) permethrin (ELIMITE) 5 % cream APPLY AND WASH OFF IN 8 TO 10 HOURS IF NOT BETTER IN ONE WEEK REPEAT TREATMENT (Patient not taking: Reported on 03/27/2024) FAMILY HISTORY Problem Relation Age of Onset Cancer Mother DC age 65 Coronary Artery Disease Mother other (kidney failure) Mother other (SLE) Mother None Father None Brother None Brother Social History Tobacco Use Smoking status: Former Packs/day: 0.50 Years: 5.00 Additional pack years: 0.00 Total pack years: 2.50 Types: Cigarettes Passive exposure: Current Smokeless tobacco: Never Substance Use Topics Alcohol use: Yes Comment: Occasional Drug use: No . Review of Systems HENT: Positive for congestion and sore throat. Respiratory: Positive for cough and sputum production. Negative for hemoptysis, shortness of breath and wheezing. All other systems reviewed and are negative. Objective Physic (more content not included)... Normal [facility] COVID AND INFLUENZA A/B AND RSV NAAT, ROUTINEon 03-27-2024 SARS-CoV-2 (COVID-19) RNA SASHA+probe Ql (Unsp spec) COVID 19 RESULT: Not detected The method used is RT-PCR or an equivalent NAAT method. Reference Range (the expected result in uninfected individuals): Not detected INFLUENZA A PCR: Not detected INFLUENZA B PCR: Not detected RSV PCR: Not detected Normal [facility] Comment on above: Performed By: #### C VFLRS ####[facility] LABCLIA [id number] [address] [place] STREP A MOLECULAR (POC)on Procedural Control Valid [facility] Strep A (POCT) Negative Negative [facility] CNPNon 03-15-2024 CNPN Telephone (OBGDOV) -------- JUDSON DE LA CRUZ ([id number]) 1980 F Date Time Provider Department 03/15/24 REGAN HERRERA During your visit today, we recorded the following information about you: Regan Herrera APRN.CNP 03/15/2024 7:08 AM Signed Please notify Judson that her FSH is indicating menopause. I would like her to have the FSH repeated in approx 1 month for confirmation. She should not be taking provera. Regan Herrera APRN.COMMUNITY LIAISON Allergies As of Date: 03/15/2024 Noted Allergy Reaction ADHESIVE TAPE (ROSINS) 03/14/2024 14 - Other: See Comments ADHESIVE TAPE-SILICONES 12/09/2021 2 - Rash CEPHALEXIN 12/09/2021 2 - Rash DOXYCYCLINE 03/06/2017 4 - Hives 14 - Other: See Comments 2 - Rash Comments: Patient c/o dizziness, rash and then hives HYDROCODONE-ACETAMINOPHE N 09/24/2009 14 - Other: See Comments HYDROCODONE-GUAIFENESIN 03/14/2024 16 - Unknown SULFA (SULFONAMIDE ANTIBIOTICS) 12/09/2021 4 - Hives 14 - Other: See Comments 16 - Unknown SULFAMETHOXAZOLE 12/09/2021 8 - GI Upset Date Reviewed: 03/14/2024 Reviewed by: Regan Herrera APRN.COMMUNITY LIAISON - Fully Assessed Reason for Visit: Results [95] Primary Visit Diagnosis:Abnormal FSH level [R79.89] Order(s):FOLLICLE STIMULATING HORMONE [SQFSH] Order #: [id number] FUTURE WHIIVF ANTI MULLERIAN HORMONE [SQAMHIVF] Order #: [id number] FUTURE Prescriptions as of 03/15/2024 - hydrOXYzine HCl (ATARAX) 25 mg tablet Take 25 mg by mouth. - medroxyPROGESTERone (PROVERA) 10 mg tablet Take by mouth every 24 hours. - metFORMIN (GLUCOPHAGE) 500 mg tablet Take 1 tablet by mouth two times a day. - meloxicam (MOBIC) 15 mg tablet Take 15 mg by mouth once daily. - albuterol HFA (PROVENTIL HFA, VENTOLIN HFA) 90 mcg/actuation inhaler Inhale 2 Puffs as instructed every 4 hours as needed for wheezing/shortness of breath. - Cholecalciferol, Vitamin D3, (D3-2000) 50 mcg (2,000 unit) cap Take by mouth. - hydrocortisone-pramoxine (PRAMOX) 25-18 mg suppository 1 Suppository by RECTAL route two times a day. - loperamide (IMODIUM) 2 mg cap(s) Take 1 capsule by mouth four times a day as needed for up to 7 days. - levothyroxine (SYNTHROID) 100 mcg tablet Take 1 tablet by mouth once daily. - permethrin (ELIMITE) 5 % cream APPLY AND WASH OFF IN 8 TO 10 HOURS IF NOT BETTER IN ONE WEEK REPEAT TREATMENT - cyanocobalamin (VITAMIN B-12) 500 mcg ORAL Tab Take 1 tablet by mouth once daily. Problem List As Of Date 03/15/2024 Noted Resolved Type 2 diabetes mellitus without complication, * Hypothyroid [E03.9] Irregular Menses [N92.6] PCOD (polycystic ovarian disease) [E28.2] 05/25/2016 Hyperlipidemia [E78.5] 05/25/2016 Gallstones [K80.20] Dysmetabolic Syndrome [E88.810] Obesity [E66.9] Depression [F32.A] Vitamin D deficiency [E55.9] 08/30/2010 Hypothyroidism [E03.9] 04/11/2018 Obesity, Class III, BMI 40-49.9 (morbid obesity*12/09/2021 Impaired fasting glucose [R73.01] 12/29/2021 Cervical radiculopathy [M54.12] 11/03/2023 Lumbar radiculopathy [M54.16] 11/03/2023 DDD (degenerative disc disease), lumbar [M51.36]11/03/2023 Muscle weakness [M62.81] 11/17/2023 02/19/2024 Pain in joint, multiple sites [M25.50] 11/17/2023 02/19/2024 Acute traumatic internal derangement of left kn*03/14/2024 03/14/2024 Abnormal uterine bleeding [N93.9] 03/14/2024 03/14/2024 Acute cough [R05.1] 07/10/2023 03/14/2024 Acute sinusitis [J01.90] 03/14/2024 03/14/2024 Allergic rhinitis [J30.9] 03/14/2024 03/14/2024 Ankle pain [M25.579] 03/14/2024 03/14/2024 Constipation [K59.00] 03/14/2024 03/14/2024 Derangement of left knee [M23.92] 03/14/2024 03/14/2024 Diarrhea [R19.7] 08/04/2023 03/14/2024 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 03/14/2024 Hemorrhoids [K64.9] 03/18/2018 03/14/2024 Herpes zoster [B02.9] 03/14/2024 03/14/2024 Hyperglycemia [R73.9] 03/14/2024 03/14/2024 Muscle spasms of neck [M62.838] 03/14/2024 03/14/2024 Papanicolaou smear of cervix with atypical squa*03/14/2024 03/14/2024 Rash [R21] 03/14/2024 03/14/2024 Somatic dysfunction of cervical region [M99.01] 03/14/2024 03/14/2024 Somatic dysfunction of head region [M99.00] 03/14/2024 03/14/2024 Spasm of cervical paraspinous muscle [M62.838] 03/14/2024 03/14/2024 Strain of hamstring muscle [S76.319A] 03/14/2024 03/14/2024 Tension type headache [G44.209] 03/14/2024 03/14/2024 Vaginal odor [N89.8] 03/14/2024 03/14/2024 Allergy status to sulfonamides [Z88.2] 12/06/2022 03/14/2024 Muscle weakness (generalized) [M62.81] 11/17/2023 03/14/2024 Blister [T14.8XXA] 07/14/2023 03/14/2024 Other intervertebral disc degeneration, lumbar *11/03/2023 03/14/2024 Pain in right hip [M25.551] 12/06/2022 03/14/2024 Pain in unspecified joint [M25.50] 11/17/2023 03/14/2024 Type 2 diabetes mellitus without complications *12/06/2022 03/14/2024 Dysfunctional uterine bleeding [N93.8] 03/14/2024 03/14/2024 Knee pain [ (more content not included)... Normal [facility] BACTERIAL VAGINOSIS NAATon 0 03-14-2024 Lactobacillus crispatus+gasseri+kiran senii + Gardnerella vaginalis + Atopobium vaginae rRNA SASHA+probe Ql (Vag fld) Negative Normal Negative for bacterial vaginosis [facility] Comment on above: Order Comment: Speci men Type: SWABOrdering Facility: [facility] Address: [address] [place] [address] Performed By: #### B VAMP, CVTV ####[facility] LABCLIA [id number] [place] [address] [place] C. trachomatis+N. gonorrhoea e DNA SASHA+probe Ql (Unsp spec)on 03-14-2024 C. trachomatis rRNA SASHA+probe Ql (Unsp spec) Negative Normal Negative for Chlamydia trachomatis by [facility] Comment on above: Order Comment: Speci men Type: SWABOrdering Facility: [facility] Address: [address] [place] [address] Performed By: #### 3 6902-5 ####[facility] LABCLIA [id number] [place] [address] [place] N. gonorrhoeae rRNA SASHA+probe Ql (Unsp spec) Negative Normal Negative for Neisseria gonorrhoeae by [facility] Comment on above: Order Comment: Speci men Type: SWABOrdering Facility: [facility] Address: [address] [place] [address] Performed By: #### 3 6902-5 ####[facility] LABCLIA [id number] [place] [address] [place] TAMMIE/TRICHOMONAS NAATon 0 03-14-2024 C. glabrata RNA SASHA+probe Ql (Vag fld) Negative Normal Negative for Tammie glabrata [facility] Comment on above: Order Comment: Speci men Type: SWABOrdering Facility: [facility] Address: [address] [place] [address] Performed By: #### B VAMP, CVTV ####[facility] LABCLIA [id number] [place] [address] [place] Tammie sp DNA SASHA+probe Ql (Vag fld) Negative Normal Negative for Tammie species [facility] Comment on above: Order Comment: Speci men Type: SWABOrdering Facility: [facility] Address: [address] [place] [address] Performed By: #### B VAMP, CVTV ####[facility] LABCLIA [id number] [place] [address] [place] T. vaginalis DNA SASHA+probe Ql (Unsp spec) Negative Normal Negative for Trichomonas vaginalis by [facility] Comment on above: Order Comment: Speci men Type: SWABOrdering Facility: [facility] Address: [address] [place] [address] Performed By: #### B BRAYDON BALTAZAR ####[facility] LABCLIA [id number] [id number] STATES OF [facility] CNOVon 03-14-2024 CNOV Office Visit (OBGDOV ) -------- JUDSON DE LA CRUZ ([id number]) 1980 F Date Time Provider Department 03/14/24 2:00 PM REGAN HERRERA During your visit today, we recorded the following information about you: Pulse Blood pressure Weight Height 103/minute 109/76 101.4 kg 1.422 m Last Period 09/04/23 Regan Herrera APRN.COMMUNITY LIAISON 03/14/2024 2:45 PM Signed Judson is a 43 year old who presents for an annual gynecologic exam without complaints. Pt states she uses provera to induce cycles due to her PCOS. She states she was just able to get it refilled but is waiting for the beginning of March to start it. Pt is poor historian but based on her records she also has history of endometrial hyperplasia. When I asked about this she was confusing the abnormal endometrial cells with her abnormal pap cells. I am unsure what she has been treated for as far as the hyperplasia goes. Pt also reports a possible vaginal odor although she states she is unsure if it is an odor or just when she wears dark colored underwear. Menses: Very irregular- PCOS. 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 History Comments: Sexual Activity: Yes; Male Contraception: Condom 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 Hemorrhoids 03/18/2018 Herpes zoster 03/14/2024 Hyperglycemia 03/14/2024 Hyperlipidemia Hypothyroid 08/21/1998 Irregular menses Knee pain 03/14/2024 Comment on above: KNEE PAIN Major depressive disorder, recurrent, moderate (HCC) 05/23/2023 Muscle spasms of neck 03/14/2024 Muscle weakness 11/17/2023 Muscle weakness (generalized) 11/17/2023 Obesity Other intervertebral disc degeneration, lumbar region 11/03/2023 Other specified diseases of anus and rectum 09/04/2023 Pain in joint, multiple sites 11/17/2023 Pain in right hip 12/06/2022 Pain in unspecified joint 11/17/2023 Papanicolaou smear of cervix with atypical squamous cells cannot exclude high grade squamous intraepithelial lesion (ASC-H) 03/14/2024 Pleurodynia 07/10/2023 Polycystic disease, ovaries Radiculopathy, cervical region 11/03/2023 Rash 03/14/2024 Somatic dysfunction of cervical region 03/14/2024 Somatic dysfunction of head region 03/14/2024 Spasm of cervical paraspinous muscle 03/14/2024 Strain of hamstring muscle 03/14/2024 Tension type headache 03/14/2024 Type 2 diabetes mellitus without complications (HCC) 12/06/2022 Vaginal odor 03/14/2024 PAST SURGICAL HISTORY Procedure Laterality Date CHOLECYSTECTOMY ORAL SURGERY PROCEDURE all teeth pulled wisdom teeth FAMILY HISTORY Problem Relation Age of Onset Cancer Mother DC age 65 Coronary Artery Disease Mother other (kidney failure) Mother other (SLE) Mother None Father None Brother None Brother SOCIAL HISTORY Social History Tobacco Use Smoking status: Former Packs/day: 0.50 Years: 5.00 Additional pack years: 0.00 Total pack years: 2.50 Types: Cigarettes Passive exposure: Current Smokeless tobacco: Never Substance Use Topics Alcohol use: Yes Comment: Occasional Drug use: No REVIEW OF SYSTEMS Abdomen: No abdominal pain, nausea, vomiting, diarrhea, or constipation. No bloating, early satiety, indigestion, or increased flatulence. Bladder: No dysuria, gross hematuria, urinary frequency, urinary urgency, or incontinence. Breast: No breast lumps, nipple d/c, overlying skin changes, redness or skin retraction. Allergies and current medication updated:Yes EXAM: BP 109/76 Pulse 103 Ht 4' 8 (1.42m) Wt 223 lb 8.7 oz (101.4kg) SpO2 96% LMP 09/04/2023 BMI 50.15 kg/(m2). GENERAL: pleasant, female in no apparent distress HEENT: Normocephalic, atraumatic, and mucus membranes moist NECK: Supple, full range of motion, and no adenopathy DERMATOLOGY: Normal, without lesions, non-icteric, and non-hirsute BREAST: soft, non-tender, symmetric, no dominant mass, normal nipple-areo (more content not included)... Normal [facility] FSH SerPl-aCncon 03-14-2024 Follitropin Qn 62.7 m[IU]/mL Normal See comment [facility] Comment on above: Order Comment: Speci men Type: BLOOD SPECIMENOrdering Facility: [facility] Address: [address], [place] [address] Result Comment: Molly ruby range: Follicular: 3.5-12.5 mIU/mL Ovulation: 4.7-21.5 mIU/mL Luteal: 1.7-7.7 mIU/mL Postmenopausal: 25.8-134.8 mIU/mL Performed By: #### 1 5067-2, 11337-3, 3016-3 ####[facility] LABCLIA [id number] [place] [id number] [place] HIGH RISK HUMAN PAPILLOMA DOLORES (HPV), PCR FOR DETECTION AND GENOTYPINGon 03-14-2024 HPV 16 Ag Ql (Unsp spec) Not detected Normal Not detected [facility] Comment on above: Order Comment: Speci men Type: FLUID SPECIMENOrdering Facility: [facility] Address: [address] [place] [address] Performed By: #### L [id number], HPVHRT ####[facility] [facility] [id number] [place] [address] [place] HPV 18 Ag Ql (Unsp spec) Not detected Normal Not detected [facility] Comment on above: Order Comment: Speci men Type: FLUID SPECIMENOrdering Facility: [facility] Address: [address] [place] [address] Performed By: #### L [id number], HPVHRT ####[facility] [id number] [place] [address] [place] HPV 31+33+35+39+45+51+52+ 56+58+59+66+68 DNA SASHA+probe Ql (Cvx) Not detected Normal Not detected [facility] Comment on above: Order Comment: Speci men Type: FLUID SPECIMENOrdering Facility: [facility] Address: [address] [place] [address] Result Comment: High Risk HPV Other Type includes HPV types 31, 33, 35, 39, 45, 51, 52, 56, 58, 59, 66 and 68. Performed By: #### L [id number], HPVHRT ####[facility] LABIA [id number] [place] [address] [place] LH SerPl-aCncon 03-14-2024 Lutropin Qn 32.5 m[IU]/mL Normal See comment [facility] Comment on above: Order Comment: Speci men Type: BLOOD SPECIMENOrdering Facility: [facility] Address: [address] [place] [address] Result Comment: Refe rence range: Follicular: 2.4-12.6 mIU/mL Midcycle: 14.0-95.6 mIU/mL Luteal: 1.0-11.4 mIU/mL Post Diya: 7.7-58.5 mIU/mL Performed By: #### 1 5067-2, 36962-3, 3016-3 ####[facility]CL[facility] [id number] [place] [id number] [place] PAP TESTon 03-14-2024 ADEQUACY Satisfactory for interpretation. [facility] Comment on above: Order Comment: Speci men Type: FLUID SPECIMENOrdering Facility: [facility] Address: [address] [place] [address] Performed By: #### L [id number], HPVHRT ####[facility]CLIA [id number] [address] [place] CASE REPORT [facility] Comment on above: Order Comment: Speci men Type: FLUID SPECIMENOrdering Facility: [facility] Address: [address] [place] [address] Result Comment: Gyne cologic Cytology Report Case: [id number] Authorizing Provider: Regan Herrera APRN.COMMUNITY LIAISON Collected: 03/14/2024 02:18 PM Ordering Location: [facility] Received: 03/15/2024 08:42 AM Hospital Obstetrics and Gynecology First Screen: Judy Lambert, CT, ASCP Specimen: Pap Test, ThinPrep, Cervix Performed By: #### L [id number], HPVHRT ####[facility]CLIA [id number] [place] [id number] [place] CLINICAL HISTORY, CYTOLOGY, DRYWALL INSTALLER Routine Exam [facility] Comment on above: Order Comment: Speci men Type: FLUID SPECIMENOrdering Facility: [facility] Address: [address] [place] [address] Performed By: #### L [id number], HPVHRT ####[facility]CLIA [id number] [place] [id number] [place] FINAL PERFORMING LAB Normal [facility] Comment on above: Order Comment: Speci men Type: FLUID SPECIMENOrdering Facility: [facility] Address: [address] [place] [address] Result Comment: Tech nical component, enterprise services manager screening performed at [facility], [address] [place] [address] [place] [address] CLIA# [id number] Diagnostic interpretation performed at [facility], [address] [place] [address] [place] [address] CLIA# [id number] [employer] Director: Jose Luis uQijano M.D. Performed By: #### L [id number], HPVHRT ####[facility]CLIA [id number] [place] [address] [place] HPV REFLEX Yes HPV [facility] Comment on above: Order Comment: Speci men Type: FLUID SPECIMENOrdering Facility: [facility] Address: [address] [place] [address] Performed By: #### L [id number], HPVHRT ####[facility]CLIA [id number] [place] [address] [place] INTERPRETATION, CYTOLOGY, DRYWALL INSTALLER [facility] Comment on above: Order Comment: Speci men Type: FLUID SPECIMENOrdering Facility: [facility] Address: [address] [place] [address] Result Comment: Nega tive for intraepithelial lesion or malignancy. Performed By: #### L [id number], HPVHRT ####[facility]CLIA [id number] [place] [address] [place] LMP 09/04/2023 [facility] Comment on above: Order Comment: Speci men Type: FLUID SPECIMENOrdering Facility: [facility] Address: [address] [place] [address] Performed By: #### L [id number], HPVHRT ####[facility] LABCLIA [id number] [place] [id number] [place] PAP DISCLAIMER COMMENT The Pap Smear is a screening test for cervical cancer. False negative results occur with all screening tests, emphasizing the need for rescreening at recommended intervals, and clinical correlation. [facility] Comment on above: Order Comment: Speci men Type: FLUID SPECIMENOrdering Facility: [facility] Address: [address] [place] [address] Performed By: #### L [id number], HPVHRT ####[facility] LABCLIA [id number] [address] [place] PAP HYDRAULIC RIVETER COMMENT This specimen has be en analyzed by the ThinPrep Imaging System, an automated imaging and review system, which assists the laboratory in evaluating cells on ThinPrep Pap tests. Following automated imaging, selected jason from every slide are reviewed by a enterprise services manager. [facility] Comment on above: Order Comment: Speci men Type: FLUID SPECIMENOrdering Facility: [facility] Address: [address] [place] [address] Performed By: #### L [id number], HPVHRT ####[facility]CLIA [id number] [place] [address] [place] TSH SerPl-aCncon 03-14-2024 TSH Qn 1.330 m[IU]/L Normal 0.270-4.200 [facility] Comment on above: Order Comment: Speci men Type: BLOOD SPECIMENOrdering Facility: [facility] Address: [address] [place] [address] Result Comment: If t he patient is , TSH reference range varies by gestational period: First Trimester (weeks 9-12): 0.180-2.990 mIU/L Second Trimester: 0.110-3.980 mIU/L Third Trimester: 0.480-4.710 mIU/L Guillermo Albrecht et al. A Practical Approach for the Verifications and Determination of Site- and Trimester-Specific Reference Intervals for Thyroid Function tests in . Thyroid, 2019:29:3:412-420. Massimo Cisneros, et al. 2017 Guidelines of the [place] Thyroid Association for the Diagnosis and Management of Thyroid Disease during and the . Thyroid, 2017:27:3:315-389. Performed By: #### 1 5067-2, 77769-8, 3016-3 ####[facility] LABCLIA [id number] [place] [id number] [facility] ED NOTEon 02-09-2024 ED NOTE HNO ID: [id number] Author: NIKA ESPARZA RN Service: ? Author Type: Registered Nurse Type: ED Notes Filed: 02/10/2024 16:36 Note Text: Emergency Services: ED Call Back Questionnaire SERVICE DATE: 02/09/2024 Are you feeling better? Yes Any questions about discharge instructions and follow-up care? No Were you able to make a follow up appointment? no Do you have any further questions? No Is there anything that we could have done differently to improve your ED visit? No SIGNATURE: Nika Esparza RN PATIENT NAME: Judson De La Cruz DATE: February 10, 2024 TIME: 4:36 PM Normal [facility] ED PROV NOTEon 02-09-2024 ED PROV NOTE HNO ID: [id number] Author: INGRID BOBBY DO Service: ? Author Type: Physician Type: ED Provider Notes Filed: 02/09/2024 23:22 Note Text: ED Provider Note Patient Name: Judson De La Cruz : 1980 SERVICE DATE: 02/09/24 History Patient presents with: Pain: Sunburn to bilateral upper arms, upper chest, upper back area. Rates pain 05/30 Patient is a 43-year-old female presenting to emergency department chief complaint of sunburn. Patient states she was outside today in a bathing suit, had gone swimming. She states she did not wear sunblock. She is says she now has some burn on her shoulders back and chest. She has been trying some fhgx-lfe-hzcpizm aloe vera. She says that she thinks she had an allergic reaction to calamine lotion in the past. She denies any fevers or chills or vomiting. She has not taken any other medications for this. 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 PAST MEDICAL HISTORY Diagnosis Date Depression Diabetes mellitus type II, uncontrolled 1998 Dysmetabolic syndrome Gallstones Hyperlipidemia Hypothyroid 1998 Irregular menses Obesity Polycystic disease, ovaries PAST SURGICAL HISTORY Procedure Laterality Date CHOLECYSTECTOMY ORAL SURGERY PROCEDURE all teeth pulled wisdom teeth FAMILY HISTORY Problem Relation Age of Onset Cancer Mother DC age 65 Coronary Artery Disease Mother other (kidney failure) Mother other (SLE) Mother None Father None Brother None Brother Social History Tobacco Use Smoking status: Former Packs/day: 0.50 Years: 5.00 Additional pack years: 0.00 Total pack years: 2.50 Types: Cigarettes Passive exposure: Current Smokeless tobacco: Never Substance and Sexual Activity Alcohol use: Yes Comment: Occasional Drug use: No Sexual activity: Yes Partners: Male control/protection: Condom ALLERGIES Allergen Reactions Adhesive Tape-Silic* Rash Cephalexin Rash Doxycycline Rash, Hives, Other: See Comments Patient c/o dizziness, rash and then hives Sulfa (Sulfonamide * Hives Sulfamethoxazole GI Upset Vicodin [Hydrocodon* Review of Systems All other systems reviewed and are negative. Physical Exam Vitals [02/09/24 2305] BP Pulse Temp Temp src Resp SpO2 Weight Height 131/81 84 36.9 ?C (98.4 ?F) Oral 19 97 % 102 kg (224 lb 13.9 oz) 1.422 m (4' 8) Physical Exam Vitals and nursing note reviewed. Constitutional: General: She is not in acute distress. Appearance: Normal appearance. She is not ill-appearing, toxic-appearing or diaphoretic. HENT: Head: Normocephalic and atraumatic. Mouth/Throat: Mouth: Mucous membranes are moist. Pharynx: Oropharynx is clear. Eyes: General: No scleral icterus. Conjunctiva/sclera: Conjunctivae normal. Cardiovascular: Rate and Rhythm: Normal rate and regular rhythm. Pulses: Normal pulses. Heart sounds: No murmur heard. Pulmonary: Effort: Pulmonary effort is normal. Breath sounds: Normal breath sounds. No stridor. No wheezing or rhonchi. Abdominal: General: Abdomen is flat. There is no distension. Palpations: Abdomen is soft. Tenderness: There is no abdominal tenderness. There is no guarding or rebound. Musculoskeletal: General: No swelling. Cervical back: No rigidity. Right lower leg: No edema. Left lower leg: No edema. Skin: General: Skin is warm and dry. Capillary Refill: Capillary refill takes less than 2 seconds. Findings: Erythema present. Comments: Patient has sunburn on the upper arms the upper chest and upper back. There is a very small amount of sunburn on the anterior upper thighs. All of this appears to be superficial with no blistering other than a small area around the right scapula that looks like it is just starting to form small blister. All of this is consistent with a sunburn. No rash on the palms Neurological: General: No focal deficit present. Mental Status: She is alert. Mental status is at baseline. Psychiatric: Mood and Affect: Mood normal. Behavior: Behavior normal. Diagnostic Testing ED Labs Ordered and Reviewed - No data to display Procedures ED Course / Clinical Impression Clinical Impressions as of 02/09/24 2322 Sunburn MDM / Disposition / Plan Patient was hemodynamically stable nonseptic nontoxic upon arrival. At this point patient's symptoms consistent with sunburn. Patient has tried aloe vera lotion. She states she has an allergic reaction to calamine lotion. I gave her a wet cloth to do cool compresses to the area. She has a very minimal blister forming. I did give her a shot of Toradol here and going to get a prescription for ibuprofen as well. At this point I do not think any further test or imaging is required here emergently. She is can be discharged home. She does not have any systemic symptoms. She is going to follow-up with her doctor and she is return to emergency department if symptoms worsen o (more content not included)... Normal [facility] CBC W Auto Differential pane l (Bld)on 12-12-2023 Basophils (Bld) [#/Vol] 0.03 10*3/uL Normal <0.11 [facility] Comment on above: Order Comment: Speci men Type: BLOOD SPECIMENOrdering Facility: [facility] Address: [address] [place] [address] Performed By: #### 5 7021-8 ####[facility] LABCLIA [id number] [place] [address] [place] Basophils/100 WBC (Bld) 0.5 % Normal [facility] Comment on above: Order Comment: Speci men Type: BLOOD SPECIMENOrdering Facility: [facility] Address: [address] [place] [address] Performed By: #### 5 7021-8 ####[facility] LABIA [id number] [address] [place] Differential cell count method Nom (Bld) Auto Normal [facility] Comment on above: Order Comment: Speci men Type: BLOOD SPECIMENOrdering Facility: [facility] Address: [address] [place] [address] Performed By: #### 5 7021-8 ####[facility] LABIA [id number] [place] [address] [place] Eosinophils (Bld) [#/Vol] 0.33 10*3/uL Normal <0.46 [facility] Comment on above: Order Comment: Speci men Type: BLOOD SPECIMENOrdering Facility: [facility] Address: [address] [place] [address] Performed By: #### 5 7021-8 ####[facility] LABIA [id number] [place] [address] [place] Eosinophils/100 WBC (Bld) 5.0 % Normal [facility] Comment on above: Order Comment: Speci men Type: BLOOD SPECIMENOrdering Facility: [facility] Address: [address] [place] [address] Performed By: #### 5 7021-8 ####[facility] LABIA [id number] [place] [address] [place] Erythrocyte distribution width (RBC) [Ratio] 14.8 % Normal 11.5-15.0 [facility] Comment on above: Order Comment: Speci men Type: BLOOD SPECIMENOrdering Facility: [facility] Address: [address] [place] [address] Performed By: #### 5 7021-8 ####[facility] LABIA [id number] [place] [address] [place] Hematocrit (Bld) [Volume fraction] 41.0 % Normal 36.0-46.0 [facility] Comment on above: Order Comment: Speci men Type: BLOOD SPECIMENOrdering Facility: [facility] Address: [address] [place] [address] Performed By: #### 5 7021-8 ####[facility] LABIA [id number] [place] [address] [place] Hemoglobin (Bld) [Mass/Vol] 13.5 g/dL Normal 11.5-15.5 [facility] Comment on above: Order Comment: Speci men Type: BLOOD SPECIMENOrdering Facility: [facility] Address: [address] [place] [address] Performed By: #### 5 7021-8 ####[facility] [id number] [place] [address] [place] Immature granulocytes (Bld) [#/Vol] 0.05 10*3/uL Normal <0.10 [facility] Comment on above: Order Comment: Speci men Type: BLOOD SPECIMENOrdering Facility: [facility] Address: [address] [place] [address] Performed By: #### 5 7021-8 ####[facility] [id number] [address] [place] Immature granulocytes/100 WBC (Bld) 0.8 % Normal [facility] Comment on above: Order Comment: Speci men Type: BLOOD SPECIMENOrdering Facility: [facility] Address: [address] [place] [address] Performed By: #### 5 7021-8 ####[facility] LABIA [id number] [place] [address] [place] Lymphocytes (Bld) [#/Vol] 0.89 10*3/uL Low 1.00-4.00 [facility] Comment on above: Order Comment: Speci men Type: BLOOD SPECIMENOrdering Facility: [facility] Address: [address] [place] [address] Performed By: #### 5 7021-8 ####[facility] LABIA [id number] [address] Lymphocytes/100 WBC (Bld) 13.6 % Normal [facility] Comment on above: Order Comment: Speci men Type: BLOOD SPECIMENOrdering Facility: [facility] Address: [address] [place] [address] Performed By: #### 5 7021-8 ####[facility] LABCLIA [id number] [address] [place] [facility] MCH (RBC) [Entitic mass] 30.8 pg Normal 26.0-34.0 [facility] Comment on above: Order Comment: Speci men Type: BLOOD SPECIMENOrdering Facility: [facility] Address: [address] [place] [address] Performed By: #### 5 7021-8 ####[facility] LABCLIA [id number] [address] [place] MCHC (RBC) [Mass/Vol] 32.9 g/dL Normal 30.5-36.0 [facility] Comment on above: Order Comment: Speci men Type: BLOOD SPECIMENOrdering Facility: [facility] Address: [address] [place] [address] Performed By: #### 5 7021-8 ####[facility] LABCLIA [id number] [address] MCV (RBC) [Entitic vol] 93.4 fL Normal 80.0-100.0 [facility] Comment on above: Order Comment: Speci men Type: BLOOD SPECIMENOrdering Facility: [facility] Address: [address] [place] [address] Performed By: #### 5 7021-8 ####[facility] LABCLIA [id number] [address] Monocytes (Bld) [#/Vol] 0.65 10*3/uL Normal <0.87 [facility] Comment on above: Order Comment: Speci men Type: BLOOD SPECIMENOrdering Facility: [facility] Address: [address] [place] [address] Performed By: #### 5 7021-8 ####[facility] LABCLIA [id number] [place] [address] [place] Monocytes/100 WBC (Bld) 9.9 % Normal [facility] Comment on above: Order Comment: Speci men Type: BLOOD SPECIMENOrdering Facility: [facility] Address: [address] [place] [address] Performed By: #### 5 7021-8 ####[facility] LABIA [id number] [place] [address] [place] Neutrophils (Bld) [#/Vol] 4.60 10*3/uL Normal 1.45-7.50 [facility] Comment on above: Order Comment: Speci men Type: BLOOD SPECIMENOrdering Facility: [facility] Address: [address] [place] [address] Performed By: #### 5 7021-8 ####[facility] [id number] [place] [address] [place] Neutrophils/100 WBC (Bld) 70.2 % Normal [facility] Comment on above: Order Comment: Speci men Type: BLOOD SPECIMENOrdering Facility: [facility] Address: [address] [place] [address] Performed By: #### 5 7021-8 ####[facility] LABIA [id number] [place] [address] [place] Nucleated RBC (Bld) [#/Vol] 10*3/uL Normal <0.01 [facility] Comment on above: Order Comment: Speci men Type: BLOOD SPECIMENOrdering Facility: [facility] Address: [address] [place] [address] Performed By: #### 5 7021-8 ####[facility] LABIA [id number] [place] [address] [place] Nucleated RBC/100 WBC (Bld) [Ratio] 0.0 /100 WBC Normal [facility] Comment on above: Order Comment: Speci men Type: BLOOD SPECIMENOrdering Facility: [facility] Address: [address] [place] [address] Performed By: #### 5 7021-8 ####[facility] LABIA [id number] [place] [address] [place] [facility] Platelet mean volume (Bld) [Entitic vol] 9.2 fL Normal 9.0-12.7 [facility] Comment on above: Order Comment: Speci men Type: BLOOD SPECIMENOrdering Facility: [facility] Address: [address] [place] [address] Performed By: #### 5 7021-8 ####[facility] [id number] [place] [address] [place] Platelets (Bld) [#/Vol] 270 10*3/uL Normal 150-400 [facility] Comment on above: Order Comment: Speci men Type: BLOOD SPECIMENOrdering Facility: [facility] Address: [address] [place] [address] Performed By: #### 5 7021-8 ####[facility] [id number] [place] [address] [place] [facility] RBC (Bld) [#/Vol] 4.39 10*6/uL Normal 3.90-5.20 [facility] Comment on above: Order Comment: Speci men Type: BLOOD SPECIMENOrdering Facility: [facility] Address: [address] [place] [address] Performed By: #### 5 7021-8 ####[facility] [id number] [place] [address] [place] WBC (Bld) [#/Vol] 6.55 10*3/uL Normal 3.70-11.00 [facility] Comment on above: Order Comment: Speci men Type: BLOOD SPECIMENOrdering Facility: [facility] Address: [address] [place] [address] Performed By: #### 5 7021-8 ####[facility] [id number] [place] [address] [facility] Comprehensive metabolic 2000 panelon 12-12-2023 Albumin [Mass/Vol] 4.5 g/dL Normal 3.9-4.9 [facility] Comment on above: Order Comment: Speci men Type: BLOOD SPECIMENOrdering Facility: [facility] Address: [address] [place] [address] Performed By: #### 2 4323-8, , [id number] ####[facility] LABCLIA [id number] [place] [address] [place] ALP [Catalytic activity/Vol] 75 U/L Normal 34-123 [facility] Comment on above: Order Comment: Speci men Type: BLOOD SPECIMENOrdering Facility: [facility] Address: [address] [place], [place] [address] Performed By: #### 2 4323-8, , [id number] ####[facility] LABIA [id number] [place] [address] [place] ALT [Catalytic activity/Vol] 21 U/L Normal 7-38 [facility] Comment on above: Order Comment: Speci men Type: BLOOD SPECIMENOrdering Facility: [facility] Address: [address] [place], [place] [address] Performed By: #### 2 4323-8, , [id number] ####[facility] LABIA [id number] [place] [address] [place] Anion gap [Moles/Vol] 7 mmol/L Low 9-18 [facility] Comment on above: Order Comment: Speci men Type: BLOOD SPECIMENOrdering Facility: [facility] Address: [address] [place], [place] [address] Performed By: #### 2 4323-8, , [id number] ####[facility] LABCLIA [id number] [place] [address] [place] AST [Catalytic activity/Vol] 23 U/L Normal 13-35 [facility] Comment on above: Order Comment: Speci men Type: BLOOD SPECIMENOrdering Facility: [facility] Address: [address] [place] [address] Performed By: #### 2 4323-8, 84165-3, [id number] ####[facility] LABCLIA [id number] [place] [address] [place] Bilirubin [Mass/Vol] 0.4 mg/dL Normal 0.2-1.3 [facility] Comment on above: Order Comment: Speci men Type: BLOOD SPECIMENOrdering Facility: [facility] Address: [address] [place] [address] Performed By: #### 2 4323-8, , [id number] ####[facility] LABCLIA [id number] [place] [address] [place] Calcium [Mass/Vol] 10.2 mg/dL Normal 8.5-10.2 [facility] Comment on above: Order Comment: Speci men Type: BLOOD SPECIMENOrdering Facility: [facility] Address: [address] [place] [address] Performed By: #### 2 4323-8, , [id number] ####[facility] LABIA [id number] [place] [address] [place] Chloride [Moles/Vol] 100 mmol/L Normal 97-105 [facility] Comment on above: Order Comment: Speci men Type: BLOOD SPECIMENOrdering Facility: [facility] Address: [address] [place] [address] Performed By: #### 2 4323-8, , [id number] ####[facility] LABIA [id number] [place] [address] [place] CO2 [Moles/Vol] 28 mmol/L Normal 22-30 [facility] Comment on above: Order Comment: Speci men Type: BLOOD SPECIMENOrdering Facility: [facility] Address: [address] [place] [address] Performed By: #### 2 4323-8, , [id number] ####[facility] LABCLIA [id number] [place] [address] [place] Creatinine [Mass/Vol] 0.83 mg/dL Normal 0.58-0.96 [facility] Comment on above: Order Comment: Fernandez raymond Type: BLOOD SPECIMENOrdering Facility: [facility] Address: [address] [place] [address] Performed By: #### 2 4323-8, 86709-8, [id number] ####[facility] LABCLIA [id number] [place] [address] [place] Creatinine and Glomerular filtration rate.predicted panel (S/P/Bld) 89 mL/min/1.73m??? Normal >=60 [facility] Comment on above: Order Comment: Fernandez raymond Type: BLOOD SPECIMENOrdering Facility: [facility] Address: [address] [place] [address] Result Comment: Dorie mated Glomerular Filtration Rate (eGFR) is calculated using the 2020 CKD-EPI creatinine equation. This equation utilizes serum creatinine, sex, and age as parameters. The creatinine assay has traceable calibration to isotope dilution-mass spectrometry. Refer to KDIGO guidelines for clinical interpretation. In patients with unstable renal function, e.g. those with acute kidney injury, the eGFR may not accurately reflect actual GFR. Performed By: #### 2 4323-8, 74517-5, [id number] ####[facility] LABCLIA [id number] [place] [address] [place] Glucose [Mass/Vol] 108 mg/dL High 74-99 [facility] Comment on above: Order Comment: Fernandez raymond Type: BLOOD SPECIMENOrdering Facility: [facility] Address: [address] [place] [address] Result Comment: The [place] Diabetes Association (ADA) provides guidance for cutoff values for fasting glucose and random glucose. The ADA defines fasting as no caloric intake for at least 8 hours. Fasting plasma glucose results between 100 to 125 mg/dL indicate increased risk for diabetes (prediabetes). Fasting plasma glucose results greater than or equal to 126 mg/dL meet the criteria for diagnosis of diabetes. In the absence of unequivocal hyperglycemia, results should be confirmed by repeat testing. In a patient with classic symptoms of hyperglycemia or hyperglycemic crisis, random plasma glucose results greater than or equal to 200 mg/dL meet the criteria for diagnosis of diabetes. Reference: Standards of Medical Care in Diabetes 2016, [place] Diabetes Association. Diabetes Care. 2016.39(Suppl 1). Performed By: #### 2 4323-8, 83030-5, [id number] ####[facility] LABCLIA [id number] [place] [address] [place] Potassium [Moles/Vol] 4.9 mmol/L Normal 3.7-5.1 [facility] Comment on above: Order Comment: Speci men Type: BLOOD SPECIMENOrdering Facility: [facility] Address: [address] [place] [address] Performed By: #### 2 4323-8, , [id number] ####[facility] LABIA [id number] [place] [address] [place] Protein [Mass/Vol] 7.0 g/dL Normal 6.3-8.0 [facility] Comment on above: Order Comment: Speci men Type: BLOOD SPECIMENOrdering Facility: [facility] Address: [address] [place] [address] Performed By: #### 2 432-8, , [id number] ####[facility] LABIA [id number] [place] [address] [place] Sodium [Moles/Vol] 135 mmol/L Low 136-144 [facility] Comment on above: Order Comment: Speci men Type: BLOOD SPECIMENOrdering Facility: [facility] Address: [address] [place] [address] Performed By: #### 2 4323-8, , [id number] ####[facility] LABCLIA [id number] [place] [address] [place] Urea nitrogen [Mass/Vol] 7 mg/dL Normal 7-21 [facility] Comment on above: Order Comment: Speci men Type: BLOOD SPECIMENOrdering Facility: [facility] Address: [address] [place], [place] [address] Performed By: #### 2 4323-8, 71827-2, [id number] ####[facility] LABCLIA [id number] [place] [address] [facility] ECG COMPLETEon 12-12-2023 ECG COMPLETE Ventricular Rate : 8 3 BPM Atrial Rate : 83 BPM P-R Interval : 140 ms QRS Duration : 82 ms Q-T Interval : 364 ms QTC Calculation(Bazett) : 427 ms Calculated P [place] : 20 degrees Calculated R [place] : 17 degrees Calculated T [place] : 27 degrees Sinus rhythm with premature atrial complexes Low voltage QRS Borderline ECG No previous ECGs available Confirmed by MD Velasquez Joshua ([id number]) on 12/12/2023 5:18:58 PM NAME : JUDSON DE LA CRUZ PID : [id number] : 1980 Gender : Female Race : ORD : [id number] Procedure Date : Dec 12 2023 14:54:29 Edit Date : Dec 12 2023 17:19:00 Diagnosis: Sinus rhythm with premature atrial complexes Low voltage QRS Borderline ECG No previous ECGs available Confirmed by MD Velasquez Joshua ([id number]) on 12/12/2023 5:18:58 PM Test Reason : HCS Location : 3 : ED ED Overread By : MD Velasquez Joshua Edited By : MD Velasquez Joshua Referred By : , Acquired by : [facility] ED PROV NOTEon 12-12-2023 ED PROV NOTE HNO ID: [id number] Author: AUGUSTO HO APRN.COMMUNITY LIAISON Service: ? Author Type: Nurse Practitioner Type: ED Provider Notes Filed: 12/12/2023 17:43 Note Text: ED Provider Note Patient Name: Judson De La Cruz : 1980 SERVICE DATE: 12/12/23 History Patient presents with: Cough: Headache, nausea. Symptoms since Monday. 43-year-old female presents to the ER with numerous complaints. She states that this past Monday she started to feel ill, thinks she possibly had a fever but cannot say for sure. Monday she had nausea, vomiting and a headache and also started to have some shortness of breath. Since Monday, she has not had any vomiting but she continues to have a heaviness in her chest and tightness as well as feel short of breath and has developed a cough and congestion, she feels lightheaded as well states she is coughing up yellowish phlegm. Complains of a mild sore throat as well -thinks she has had some wheezing at home. Additionally, she states she has a itchy rash to bilateral thighs and lower abdomen that started over a week ago. It sounds like she has had some sort of similar rash before but not in this area, she did have some triamcinolone cream at home from a previous rash that she has been using on her upper legs and states that it is helping. Patient started meloxicam a few weeks ago for lower back pain and is wondering if she may be having a reaction to that. Patient does have a history of asthma as well as diabetes. Has been using her inhalers at home with minimal relief. 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 PAST MEDICAL HISTORY Diagnosis Date Depression Diabetes mellitus type II, uncontrolled 1998 Dysmetabolic syndrome Gallstones Hyperlipidemia Hypothyroid 1998 Irregular menses Obesity Polycystic disease, ovaries PAST SURGICAL HISTORY Procedure Laterality Date CHOLECYSTECTOMY ORAL SURGERY PROCEDURE all teeth pulled wisdom teeth FAMILY HISTORY Problem Relation Age of Onset Cancer Mother DC age 65 Coronary Artery Disease Mother other (kidney failure) Mother other (SLE) Mother None Father None Brother None Brother Social History Tobacco Use Smoking status: Former Packs/day: 0.50 Years: 5.00 Additional pack years: 0.00 Total pack years: 2.50 Types: Cigarettes Passive exposure: Current Smokeless tobacco: Never Substance and Sexual Activity Alcohol use: Yes Comment: Occasional Drug use: No Sexual activity: Yes Partners: Male control/protection: Condom ALLERGIES Allergen Reactions Adhesive Tape-Silic* Rash Cephalexin Rash Doxycycline Rash, Hives, Other: See Comments Patient c/o dizziness, rash and then hives Sulfa (Sulfonamide * Hives Sulfamethoxazole GI Upset Vicodin [Hydrocodon* Review of Systems Constitutional: Positive for fever. Negative for activity change and fatigue. Possible fever at home a few days ago. HENT: Positive for congestion and sore throat. Negative for ear pain, mouth sores, nosebleeds, sinus pressure, sinus pain and trouble swallowing. Eyes: Negative for discharge, redness, itching and visual disturbance. Respiratory: Positive for cough, chest tightness and shortness of breath. Cardiovascular: Positive for chest pain. Negative for palpitations and leg swelling. Complains of chest heaviness/tightness. Gastrointestinal: Positive for nausea and vomiting. Negative for abdominal pain, constipation and diarrhea. Nausea and vomiting 3 days ago at home, Monday. Genitourinary: Negative for difficulty urinating, dysuria, flank pain, frequency and urgency. Musculoskeletal: Negative for arthralgias, back pain, gait problem, joint swelling and myalgias. Skin: Positive for rash. Negative for color change. Complains of red itchy rash to lower abdomen and bilateral thighs. Neurological: Positive for headaches. Negative for dizziness, syncope, weakness, light-headedness and numbness. Psychiatric/Behavioral: Negative for agitation, behavioral problems and confusion. Physical Exam Vitals [12/12/23 1043] BP Pulse Temp Temp src Resp SpO2 Weight Height 141/83 (!) 91 36.7 ?C (98.1 ?F) Oral 16 99 % 98.9 kg (218 lb 0.6 oz) 1.422 m (4' 8) Physical Exam Constitutional: General: She is not in acute distress. Appearance: Normal appearance. She is not ill-appearing or toxic-appearing. HENT: Head: Normocephalic and atraumatic. Right Ear: Tympanic membrane, ear canal and external ear normal. There is no impacted cerumen. Left Ear: Tympanic membrane, ear canal and external ear normal. There is no impacted cerumen. Nose: Congestion present. No rhinorrhea. Mouth/Throat: Mouth: Mucous membranes are moist. Pharynx: Posterior oropharyngeal erythema present. No oropharyngeal exudate. Comments: Mild erythema and tonsillar enlargement but no exudate noted, uvula midline. Eyes: General: Right eye: No disc (more content not included)... Normal [facility] FLUABV+SARS-CoV-2+RSV Pnl Re sp SASHA+probeon 12-12-2023 FLUABV+SARS-CoV-2+RSV Pnl Resp SASHA+probe COVID 19 RESULT: Not detected The method used is RT-PCR or an equivalent NAAT method. Reference Range(the expected result in uninfected individuals): Not detected INFLUENZA A PCR: Not detected INFLUENZA B PCR: Not detected RSV PCR: Not detected Normal [facility] Comment on above: Performed By: #### 9 5941-1 ####[facility] LABCLIA [id number] [place] [address] [place] HIGH SENSITIVITY TROPONIN T (INITIAL)on 12-12-2023 Troponin T.cardiac High sensitivity method [Mass/Vol] 7 ng/L Normal <12 [facility] Comment on above: Order Comment: Fernandez raymond Type: BLOOD SPECIMENOrdering Facility: [facility] Address: [address] [place] [address] Result Comment: When assessing risk for acute coronary syndromes: In patients undergoing blood draw greater than or equal to 2 hours from symptom onset, with history of very low to moderate risk and non-ischemic ECG, an initial hs-Troponin T less than 12 ng/L AND a 1 hour delta hs-Troponin T less than 3 ng/L should be considered very low risk for 30 day MACE. Performed By: #### 2 4323-8, 37364-6, [id number] ####[facility] LABCLIA [id number] [place] [address] [place] HIGH SENSITIVITY TROPONIN T (SECOND)on 12-12-2023 Troponin T.cardiac High sensitivity method [Mass/Vol] 8 ng/L Normal <12 [facility] Comment on above: Order Comment: Fernandez raymond Type: BLOOD SPECIMENOrdering Facility: [facility] Address: [address] [place] [address] Result Comment: When assessing risk for acute coronary syndromes: In patients undergoing blood draw greater than or equal to 2 hours from symptom onset, with history of very low to moderate risk and non-ischemic ECG, an initial hs-Troponin T less than 12 ng/L AND a 1 hour delta hs-Troponin T less than 3 ng/L should be considered very low risk for 30 day MACE. Performed By: #### L [id number] ####[facility] LABCLIA [id number] [place] [address] [place] Magnesium SerPl-mCncon 12-11 Magnesium [Mass/Vol] 2.0 mg/dL Normal 1.7-2.3 [facility] Comment on above: Order Comment: Fernandez raymond Type: BLOOD SPECIMENOrdering Facility: [facility] Address: [address] [place] [address] Performed By: #### 2 4323-8, 61371-8, [id number] ####[facility] LABCLIA [id number] [place] S pyo DNA Throat Ql SASHA+prob magdiel 12-12-2023 S. pyogenes DNA SASHA+probe Ql (Throat) Not detected Normal Not detected [facility] Comment on above: Order Comment: Speci men Type: SWABOrdering Facility: [facility] Address: [address] [place] [address] Performed By: #### 6 0489-2 ####[facility] LABCLIA [id number] [address] [place] XR CHEST 2V FRONTAL/LATon XR CHEST 2V FRONTAL/LAT * * *Final Report* * * DATE OF EXAM: Dec 12 2023 3:27PM UDX [id number] - XR CHEST 2V FRONTAL/LAT / PROCEDURE REASON: Cough * * * * Physician Interpretation * * * * EXAMINATION: CHEST RADIOGRAPH (2 VIEW FRONTAL and LATERAL) CLINICAL HISTORY: Cough, Shortness of breath MQ: XC2_6 EXAM DATE/TIME: 12/12/2023 3:27 PM COMPARISON: 07/29/2023. RESULT: This is a limited examination due to the patient's size. Lines, tubes, and devices: None. Lungs and pleura: There is no definite infiltrates although the lower lungs are obscured by prominent soft tissues of the chest wall. No consolidation. No lung mass. No pleural effusion. No pneumothorax. Cardiomediastinal silhouette: Normal cardiomediastinal silhouette. Bones and soft tissues: Unremarkable. IMPRESSION: Stable exam with no definite acute radiographic abnormality. Hot Man: PSCB Transcribe Date/Time: Dec 12 2023 3:28P Dictated by : LARY PADILLA MD This examination was interpreted and the report reviewed and electronically signed by: LARY PADILLA MD on Dec 12 2023 3:28PM EST [id number] Normal [facility] CNTHERAPYon 12-05-2023 CNTHERAPY OT/PT/Speech Visit (PTNEWPHIL) -------- JONOJUDSON Ambrocio ([id number]) 1980 F Date Time Provider Department 12/05/23 2:45 PM [facility] [place] [facility] Date Time Provider Department Center 12/05/2023 2:45 PM [id number] LEVIN*[facility] Reason for Visit: Physical Therapy [503] PT Discharge [752] Primary Visit Diagnosis:Pain in joint, multiple sites [M25.50] Other Visit Diagnosis:Muscle weakness [M62.81] Allergies As of Date: 12/05/2023 Noted Allergy Reaction ADHESIVE TAPE-SILICONES 12/09/2021 2 - Rash CEPHALEXIN 12/09/2021 2 - Rash DOXYCYCLINE 03/06/2017 2 - Rash 4 - Hives 14 - Other: See Comments Comments: Patient c/o dizziness, rash and then hives SULFA (SULFONAMIDE ANTIBIOTICS) 03/03/2023 4 - Hives SULFAMETHOXAZOLE 12/09/2021 8 - GI Upset VICODIN (HYDROCODONE-ACETAMINOPH E*09/24/2009 Date Reviewed: 11/03/2023 Reviewed by: Estefani Diaz MA - Fully Assessed Prescriptions as of 02/19/2024 - meloxicam (MOBIC) 15 mg tablet Take 15 mg by mouth once daily. - albuterol HFA (PROVENTIL HFA, VENTOLIN HFA) 90 mcg/actuation inhaler Inhale 2 Puffs as instructed every 4 hours as needed for wheezing/shortness of breath. - Cholecalciferol, Vitamin D3, (D3-2000) 50 mcg (2,000 unit) cap Take by mouth. - hydrocortisone-pramoxine (PRAMOX) 25-18 mg suppository 1 Suppository by RECTAL route two times a day. - loperamide (IMODIUM) 2 mg cap(s) Take 1 capsule by mouth four times a day as needed for up to 7 days. - levothyroxine (SYNTHROID) 100 mcg tablet Take 1 tablet by mouth once daily. - metFORMIN (GLUCOPHAGE) 1,000 mg tablet Take 1 tablet by mouth twice daily with meals. - permethrin (ELIMITE) 5 % cream APPLY AND WASH OFF IN 8 TO 10 HOURS IF NOT BETTER IN ONE WEEK REPEAT TREATMENT - medroxyPROGESTERone 10 mg tablet Take 1 tablet by mouth once daily. - cyanocobalamin (VITAMIN B-12) 500 mcg ORAL Tab Take 1 tablet by mouth once daily. -------- [facility] THERAPY NTon 11-30-2023 THERAPY NT HNO ID: [id number] Author: WASHINGTON LEVIN PTA Service: ? Author Type: Freight Brakeman Type: Therapy (PT/OT/Speech/Resp) Filed: 11/30/2023 20:00 Note Text: Program_ID:[id number] Access Code: [email or web address] URL: [email or web address] generalGrowing [email or web address]. Bundle It/ Date: 11-30-2023 Prepared By: RYAN FORTUNE Program Notes Exercises - Abdominal Bracing - 1 x daily - 7 x weekly - 1-2 sets - 10 reps - Left Standing Lateral Shift Correction at Wall - Repetitions - 6 x daily - 7 x weekly - 1 sets - 5 reps [facility] CNTHERAPYon 11-29-2023 CNTHERAPY OT/PT/Speech Visit ([id number]) -------- JUDSON DE LA CRUZ ([id number]) 1980 F Date Time Provider Department 11/29/23 2:45 PM W[facility] LEVIN [id number] Date Time Provider Department Center 11/29/2023 2:45 PM [id number] LEVIN*[id number] [facility] Reason for Visit: Physical Therapy [503] Primary Visit Diagnosis:Pain in joint, multiple sites [M25.50] Other Visit Diagnosis:Muscle weakness [M62.81] Allergies As of Date: 11/29/2023 Noted Allergy Reaction ADHESIVE TAPE-SILICONES 12/09/2021 2 - Rash CEPHALEXIN 12/09/2021 2 - Rash DOXYCYCLINE 03/06/2017 2 - Rash 4 - Hives 14 - Other: See Comments Comments: Patient c/o dizziness, rash and then hives SULFA (SULFONAMIDE ANTIBIOTICS) 03/03/2023 4 - Hives SULFAMETHOXAZOLE 12/09/2021 8 - GI Upset VICODIN (HYDROCODONE-ACETAMINOPH E*09/24/2009 Date Reviewed: 11/03/2023 Reviewed by: Estefani Diaz MA - Fully Assessed Prescriptions as of 11/30/2023 - Cholecalciferol, Vitamin D3, (D3-2000) 50 mcg (2,000 unit) cap Take by mouth. - meloxicam (MOBIC) 15 mg tablet Take 1 tablet by mouth once daily. - hydrocortisone-pramoxine (PRAMOX) 25-18 mg suppository 1 Suppository by RECTAL route two times a day. - loperamide (IMODIUM) 2 mg cap(s) Take 1 capsule by mouth four times a day as needed for up to 7 days. - albuterol HFA (PROVENTIL HFA, VENTOLIN HFA) 90 mcg/actuation inhaler Inhale 2 Puffs as instructed every 4 hours as needed for wheezing/shortness of breath. - levothyroxine (SYNTHROID) 100 mcg tablet Take 1 tablet by mouth once daily. - metFORMIN (GLUCOPHAGE) 1,000 mg tablet Take 1 tablet by mouth twice daily with meals. - permethrin (ELIMITE) 5 % cream APPLY AND WASH OFF IN 8 TO 10 HOURS IF NOT BETTER IN ONE WEEK REPEAT TREATMENT - medroxyPROGESTERone 10 mg tablet Take 1 tablet by mouth once daily. - cyanocobalamin (VITAMIN B-12) 500 mcg ORAL Tab Take 1 tablet by mouth once daily. 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: Therapy (PT/OT/Speech/Resp) ID: [id number] 11/30/2023 8:00 PM Author: WASHINGTON LEVIN Signed by WASHINGTON LEVIN CLERK GENERAL on 11/30/2023 at 8:00 PM Document text: Program_ID:[id number] Access Code: [email or web address] URL: [email or web address] Date: 11-30-2023 Prepared By: RYAN FORTUNE Program Notes Exercises - Abdominal Bracing - 1 x daily - 7 x weekly - 1-2 sets - 10 reps - Left Standing Lateral Shift Correction at Wall - Repetitions - 6 x daily - 7 x weekly - 1 sets - 5 reps Addendum Therapy (PT/OT/Speech/Resp) ID: [id number] 11/29/2023 6:54 PM Author: WASHINGTON LEVIN Signed by WASHINGTON LEVIN CLERK GENERAL on 11/29/2023 at 6:54 PM * * * This document replaces document [id number] * * * Document text: Program_ID:[id number] Access Code: [email or web address] URL: [email or web address] Date: 11-29-2023 Prepared By: RYAN FORTUNE Program Notes Exercises - Abdominal Bracing - 1 x daily - 7 x weekly - 1-2 sets - 10 reps - Left Standing Lateral Shift Correction at Wall - Repetitions - 6 x daily - 7 x weekly - 1 sets - 5 reps [facility] THERAPY NTon 11-29-2023 THERAPY NT HNO ID: [id number] Author: WASHINGTON LEVIN PTA Service: ? Author Type: Freight Brakeman Type: Therapy (PT/OT/Speech/Resp) Filed: 11/29/2023 15:39 Note Text: Program_ID:[id number] Access Code: [email or web address] URL: [email or web address] Date: 11-29-2023 Prepared By: RYAN FORTUNE Program Notes Exercises - Abdominal Bracing - 1 x daily - 7 x weekly - 1-2 sets - 10 reps - Left Standing Lateral Shift Correction at Wall - Repetitions - 6 x daily - 7 x weekly - 1 sets - 5 reps [facility] CNTHERAPYon 11-22-2023 CNTHERAPY OT/PT/Speech Visit ([id number]) -------- JUDSON DE LA CRUZ ([id number]) 1980 F Date Time Provider Department 11/22/23 1:30 PM TANIKA PADGETT [id number] Date Time Provider Department Center 11/22/2023 1:30 PM [id number], DIANA [id number] [facility] Reason for Visit: Physical Therapy [503] Primary Visit Diagnosis:Pain in joint, multiple sites [M25.50] Other Visit Diagnosis:Muscle weakness [M62.81] Allergies As of Date: 11/22/2023 Noted Allergy Reaction ADHESIVE TAPE-SILICONES 12/09/2021 2 - Rash CEPHALEXIN 12/09/2021 2 - Rash DOXYCYCLINE 03/06/2017 2 - Rash 4 - Hives 14 - Other: See Comments Comments: Patient c/o dizziness, rash and then hives SULFA (SULFONAMIDE ANTIBIOTICS) 03/03/2023 4 - Hives SULFAMETHOXAZOLE 12/09/2021 8 - GI Upset VICODIN (HYDROCODONE-ACETAMINOPH E*09/24/2009 Date Reviewed: 11/03/2023 Reviewed by: Estefani Diaz MA - Fully Assessed Prescriptions as of 11/22/2023 - Cholecalciferol, Vitamin D3, (D3-2000) 50 mcg (2,000 unit) cap Take by mouth. - meloxicam (MOBIC) 15 mg tablet Take 1 tablet by mouth once daily. - hydrocortisone-pramoxine (PRAMOX) 25-18 mg suppository 1 Suppository by RECTAL route two times a day. - loperamide (IMODIUM) 2 mg cap(s) Take 1 capsule by mouth four times a day as needed for up to 7 days. - albuterol HFA (PROVENTIL HFA, VENTOLIN HFA) 90 mcg/actuation inhaler Inhale 2 Puffs as instructed every 4 hours as needed for wheezing/shortness of breath. - levothyroxine (SYNTHROID) 100 mcg tablet Take 1 tablet by mouth once daily. - metFORMIN (GLUCOPHAGE) 1,000 mg tablet Take 1 tablet by mouth twice daily with meals. - permethrin (ELIMITE) 5 % cream APPLY AND WASH OFF IN 8 TO 10 HOURS IF NOT BETTER IN ONE WEEK REPEAT TREATMENT - medroxyPROGESTERone 10 mg tablet Take 1 tablet by mouth once daily. - cyanocobalamin (VITAMIN B-12) 500 mcg ORAL Tab Take 1 tablet by mouth once daily. -------- [facility] [id number] 11-17-2023 [id number] HNO ID: [id number] Author: RYAN FORTUNE, PT, DPT Service: ? Author Type: Physical Therapist Type: [id number] Filed: 11/17/2023 06:30 Note Text: [facility] Rehabilitation and Sports Therapy Physical Therapy Plan of Care Certification Patient Name: Judson De La Cruz : 1980 [facility] #: [id number] Date: 11/15/2023 To: Johnathan Pringle MD From Therapist: Ryan Fortune, PT, DPT RE: Patient Certification/ Recertification Your review, approval and electronic signature are required in order to comply with Payor: [employer] MEDICAID / Plan: [facility] MEDICAID / Product Type: Medicaid / regulations. The identified Physical Therapy PLAN OF CARE for the patient is as follows: M62.81 Muscle weakness (primary encounter diagnosis) M51.36 DDD (degenerative disc disease), lumbar M54.16 Lumbar radiculopathy M54.12 Cervical radiculopathy M25.50 Pain in joint, multiple sites PLAN OF CARE: Assessment: Judson De La Cruz presents with chief complaint of spine pain that interferes with bending, reaching overhead, kneeling, squatting, working, lifting, heavy exertion, sleeping . She presents with impairments in Activities of daily living's, gait, independence in exercise, joint mobility, overall function, patient reported outcome measures, posture, range of motion, strength, and symptom management. PROMIS? (Patient-Reported Outcomes Measurement Information System) scores were reviewed and identified as a rehabilitation concern. Prognosis for therapy is Fair due to: clinical presentation, multiple co- morbidities, chronic nature of impairments, limited support system, limited tolerance to activity . She will benefit from skilled therapy services to meet the goals established for this plan of care as noted below. Classification Low Back Pain Classification: Central Mechanism/Nociplastic Pain Goals for Episode of Care: created on 11/15/23 through 02/17/24 Patient reported outcome of physical function and self-efficacy will increase T-score by a minimum 5 points. [place] in home exercise program. Patient will decrease pain rating by 2 points to meet minimal clinical important difference for numeric pain rating scale. Patient will increase active ROM of spine movement to WFL without increase in pain > 3/10 to allow patient to improve postural alignment and to improve performance of Activities of daily living's. Patient will demonstrate increase in bilateral lower extremity strength to 4/5 during manual muscle testing after activity in order to improve function for basic self-care tasks and light functional tasks. Perform all activities of daily livings with decreased report of symptoms/pain in 6 weeks by 20%. Improve postural awareness. Patient Goals: less pain Planned Interventions, Frequency, and Duration: Current Frequency: 2x/week Duration: 6 weeks Total Number of Visits Planned: 12 Planned Treatment Interventions: Therapeutic exercise (61815), Neuromuscular re-education (41272), Manual therapy (85855), Therapeutic activities (01167), Self-senior care management (27196), Gait Training (46766), Aquatic PT (68463), Patient/Family/Caregiver Education, E-Stim Unattended (97859), E-Stim Attended/TENS (18343) PLAN FOR NEXT VISIT: initiate POC with focus on symptom modulation, further assessment for potential [place]. Review of HEP Patient demonstrates fair understanding of plan of care and treatment. The above goals and plan of care were discussed and agreed upon by patient/family. For further details regarding this patient refer to the Physical Therapy electronically documented visit dated 11/15/2023. Provider Attestation I have reviewed the treatment plan for Judson De La Cruz, CCF# [id number] for the period of 11/15/23 -- 01/14/24, established on 11/15/2023. Signature certifies the need for therapy services. [facility] CNTHERAPYon 11-15-2023 CNTHERAPY OT/PT/Speech Visit ([id number]) -------- JUDSON DE LA CRUZ ([id number]) 1980 F Date Time Provider Department 11/15/23 11:30 AM RYAN FORTUNE [id number] Date Time Provider Department Center 11/15/2023 11:30 AM [id number], ASH*[id number] [facility] Reason for Visit: PT Eval [747] Primary Visit Diagnosis:Muscle weakness [M62.81] Other Visit Diagnoses:DDD (degenerative disc disease), lumbar [M51.36] Lumbar radiculopathy [M54.16] Cervical radiculopathy [M54.12] Pain in joint, multiple sites [M25.50] Allergies As of Date: 11/15/2023 Noted Allergy Reaction ADHESIVE TAPE-SILICONES 12/09/2021 2 - Rash CEPHALEXIN 12/09/2021 2 - Rash DOXYCYCLINE 03/06/2017 2 - Rash 4 - Hives 14 - Other: See Comments Comments: Patient c/o dizziness, rash and then hives SULFA (SULFONAMIDE ANTIBIOTICS) 03/03/2023 4 - Hives SULFAMETHOXAZOLE 12/09/2021 8 - GI Upset VICODIN (HYDROCODONE-ACETAMINOPH E*09/24/2009 Date Reviewed: 11/03/2023 Reviewed by: Estefani Diaz MA - Fully Assessed Prescriptions as of 11/17/2023 - Cholecalciferol, Vitamin D3, (D3-2000) 50 mcg (2,000 unit) cap Take by mouth. - meloxicam (MOBIC) 15 mg tablet Take 1 tablet by mouth once daily. - hydrocortisone-pramoxine (PRAMOX) 25-18 mg suppository 1 Suppository by RECTAL route two times a day. - loperamide (IMODIUM) 2 mg cap(s) Take 1 capsule by mouth four times a day as needed for up to 7 days. - albuterol HFA (PROVENTIL HFA, VENTOLIN HFA) 90 mcg/actuation inhaler Inhale 2 Puffs as instructed every 4 hours as needed for wheezing/shortness of breath. - levothyroxine (SYNTHROID) 100 mcg tablet Take 1 tablet by mouth once daily. - metFORMIN (GLUCOPHAGE) 1,000 mg tablet Take 1 tablet by mouth twice daily with meals. - permethrin (ELIMITE) 5 % cream APPLY AND WASH OFF IN 8 TO 10 HOURS IF NOT BETTER IN ONE WEEK REPEAT TREATMENT - medroxyPROGESTERone 10 mg tablet Take 1 tablet by mouth once daily. - cyanocobalamin (VITAMIN B-12) 500 mcg ORAL Tab Take 1 tablet by mouth once daily. 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: Therapy (PT/OT/Speech/Resp) ID: [id number] 11/15/2023 12:10 PM Author: RYAN FORTUNE Signed by RYAN FORTUNE PT, DPT on 11/15/2023 at 12:10 PM Document text: Program_ID:[id number] Access Code: [email or web address] URL: [email or web address] Date: 11-15-2023 Prepared By: RYAN FORTUNE Program Notes Exercises - Sidelying Open Book Thoracic Lumbar Rotation and Extension - 1 x daily - 7 x weekly - 1-2 sets - 3 reps - Supine Sciatic Nerve [place] - 1 x daily - 7 x weekly - 1-2 sets - 10 reps - Seated Cat Cow - 1 x daily - 7 x weekly - 1-2 sets - 10 reps - Waist Rotations - 1 x daily - 7 x weekly - 1-2 sets - 10 reps - Abdominal Bracing - 1 x daily - 7 x weekly - 1-2 sets - 10 reps [facility] THERAPY NTon 11-15-2023 THERAPY NT HNO ID: [id number] Author: RYAN FORTUNE, PT, DPT Service: ? Author Type: Physical Therapist Type: Therapy (PT/OT/Speech/Resp) Filed: 11/15/2023 12:10 Note Text: Program_ID:[id number] Access Code: [email or web address] URL: [email or web address] Date: 11-15-2023 Prepared By: RYAN FORTUNE Program Notes Exercises - Sidelying Open Book Thoracic Lumbar Rotation and Extension - 1 x daily - 7 x weekly - 1-2 sets - 3 reps - Supine Sciatic Nerve [place] - 1 x daily - 7 x weekly - 1-2 sets - 10 reps - Seated Cat Cow - 1 x daily - 7 x weekly - 1-2 sets - 10 reps - Waist Rotations - 1 x daily - 7 x weekly - 1-2 sets - 10 reps - Abdominal Bracing - 1 x daily - 7 x weekly - 1-2 sets - 10 reps [facility] ED NOTEon 10-27-2023 ED NOTE HNO ID: [id number] Author: LIZ MORALES RN Service: ? Author Type: Registered Nurse Type: ED Notes Filed: 10/27/2023 17:53 Note Text: Patient reports mild improvement in pain. She is laying prone on bed with call light in reach. [facility] ED PROV NOTEon 10-27-2023 ED PROV NOTE HNO ID: [id number] Author: LIZ IBARRA APRN.STACEY Service: ? Author Type: Nurse Practitioner Type: ED Provider Notes Filed: 10/27/2023 18:24 Note Text: ED Provider Note Patient Name: Judson De La Cruz : 1980 SERVICE DATE: 10/27/23 History Patient presents with: Back Pain: Onset couple days hx of back pAIN Patient is a 43-year-old female with a history of chronic back pain who presented to the emergency department for complaints of worsening sciatica. Patient states she was diagnosed with sciatica in her late teens. Patient states in the past she has followed with manager of care as well as pain management where she received injections. Patient states she has not seen any provider for years in regard to her chronic back pain. 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 Patient states her back pain worsened at that time and has continually worsened over the last month. Patient states the pain is worse on the right side as it radiates into her hip, groin, down her buttock and leg. Patient does endorse heaviness to the right leg. Patient denies any numbness ortingling. Denies any loss of bowel or bladder. Denies any physical injury to her lower back recently. Patient states she has been taking IcyHot with lidocaine [id number] as well as 600 mg of ibuprofen with mild improvement of symptoms. Patient states while she was stretching she felt popping in her lower back recently. Patient states she is also joined the [employer] for stretching exercises as well as the hot tub however has not been able to participate due to the pain. PAST MEDICAL HISTORY Diagnosis Date Depression Diabetes mellitus type II, uncontrolled 1998 Dysmetabolic syndrome Gallstones Hyperlipidemia Hypothyroid 1998 Irregular menses Obesity Polycystic disease, ovaries PAST SURGICAL HISTORY Procedure Laterality Date CHOLECYSTECTOMY ORAL SURGERY PROCEDURE all teeth pulled wisdom teeth FAMILY HISTORY Problem Relation Age of Onset Cancer Mother DC age 65 Coronary Artery Disease Mother other (kidney failure) Mother other (SLE) Mother None Father None Brother None Brother Social History Tobacco Use Smoking status: Former Packs/day: 0.50 Years: 5.00 Additional pack years: 0.00 Total pack years: 2.50 Types: Cigarettes Passive exposure: Current Smokeless tobacco: Never Substance and Sexual Activity Alcohol use: Yes Comment: Occasional Drug use: No Sexual activity: Yes Partners: Male control/protection: Condom ALLERGIES Allergen Reactions Adhesive Tape-Silic* Rash Cephalexin Rash Doxycycline Rash, Hives, Other: See Comments Patient c/o dizziness, rash and then hives Sulfamethoxazole GI Upset Vicodin [Hydrocodon* Review of Systems Constitutional: Negative for chills and fever. HENT: Negative for congestion and sore throat. Eyes: Negative. Respiratory: Negative for chest tightness and shortness of breath. Cardiovascular: Negative for chest pain. Gastrointestinal: Negative for abdominal pain, nausea and vomiting. Endocrine: Negative. Genitourinary: Negative. Musculoskeletal: Positive for back pain (Patient reports bilateral lower back pain x 1 month worse on the right.). Negative for neck pain. Skin: Negative for pallor and rash. Neurological: Negative for weakness and numbness. Psychiatric/Behavioral: Negative. Physical Exam Vitals [10/27/23 1554] BP Pulse Temp Temp src Resp SpO2 Weight Height 136/74 (!) 95 36.9 ?C (98.4 ?F) Oral 16 100 % 95.5 kg (210 lb 8.6 oz) 1.422 m (4' 8) Physical Exam Vitals and nursing note reviewed. Constitutional: General: She is not in acute distress. Appearance: Normal appearance. She is not ill-appearing. HENT: Head: Normocephalic and atraumatic. Eyes: Extraocular Movements: Extraocular movements intact. Pupils: Pupils are equal, round, and reactive to light. Cardiovascular: Rate and Rhythm: Normal rate and regular rhythm. Pulses: Normal pulses. Heart sounds: Normal heart sounds. No murmur heard. No gallop. Pulmonary: Effort: Pulmonary effort is normal. No respiratory distress. Breath sounds: Normal breath sounds. Abdominal: General: Bowel sounds are normal. There is no distension. Palpations: Abdomen is soft. Tenderness: There is no abdominal tenderness. Musculoskeletal: General: Tenderness (Patient reports tenderness to palpation of the lumbar spine as well as to bilateral hips.) present. Normal range of motion. Cervical back: Normal range of motion and neck supple. Skin: General: Skin is warm and dry. Capillary Refill: Capillary refill takes less than 2 seconds. Neurological: General: No focal deficit present. Mental Status: She is alert and oriented to person, place, and time. (more content not included)... Normal [facility] XR LUMBAR 3V AP/LAT/L5-S1on 10-27-2023 XR LUMBAR 3V AP/LAT/L5-S1 * * *Final Report* * * DATE OF EXAM: Oct 27 2023 4:56PM UDX 5228 - XR LUMBAR 3V AP/LAT/L5-S1 / PROCEDURE REASON: Back pain * * * * Physician Interpretation * * * * EXAMINATION: XR LUMBAR 3V AP/LAT/L5-S1 HISTORY: PAIN ACROSS LOWER BACK AND TO RIGHT BUTTOCK AREA NO RECENT INJURY. CHRONIC LOW BACK PROBLEMS Back pain. COMPARISON: None. FINDINGS: For counting purposes, L4-5 is presumed to be at the level of the iliac crests. Normal vertebral body height. Bilateral L5 spondylolysis with grade 1 spondylolisthesis and degenerative disc disease. Levoscoliosis. _ IMPRESSION: No acute findings. Bilateral L5 spondylolysis with grade 1 spondylolisthesis and degenerative disc disease. Levoscoliosis. _ Hot Man: VINNY Transcribe Date/Time: Oct 27 2023 5:13P Dictated by : JONATAN HILLS MD This examination was interpreted and the report reviewed and electronically signed by: JONATAN HILLS MD on Oct 27 2023 5:15PM EST [id number] [facility] ED NOTEon 09-04-2023 ED NOTE HNO ID: [id number] Author: PAOLA HOPE, RN Service: ? Author Type: Registered Nurse Type: ED Notes Filed: 09/04/2023 20:54 Note Text: Assisted Josefina IBARRA during rectal exam. [facility] ED PROV NOTEon 09-04-2023 ED PROV NOTE HNO ID: [id number] Author: JOSEFINA EVERETT APRN.CNP Service: Emergency Medicine Author Type: Nurse Practitioner Type: ED Provider Notes Filed: 09/05/2023 00:38 Note Text: ED Provider Note Patient Name: Judson De La Cruz : 1980 SERVICE DATE: 09/04/23 History Patient presents with: Rectal Pain: rectal bleeding, hemorrhoids present Judson is a 43 year old female who presents to the ER via EMS for rectal hemorrhoid pain for the last three days. She does not own a vehicle to transport herself. She states that the toilet paper had blood on it after whipping and when she placed the toilet paper into the toilet the water turned red..She states that she has used Preparation H yesterday or the day before and has taken Motrin 2 days ago. She states that she does not take any medication to soften her stools. Her rectal pain worsens with whipping, bowel movements, straining. 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 PAST MEDICAL HISTORY Diagnosis Date Depression Diabetes mellitus type II, uncontrolled 1998 Dysmetabolic syndrome Gallstones Hyperlipidemia Hypothyroid 1998 Irregular menses Obesity Polycystic disease, ovaries PAST SURGICAL HISTORY Procedure Laterality Date CHOLECYSTECTOMY ORAL SURGERY PROCEDURE all teeth pulled wisdom teeth FAMILY HISTORY Problem Relation Age of Onset Cancer Mother DC age 65 Coronary Artery Disease Mother other (kidney failure) Mother other (SLE) Mother None Father None Brother None Brother Social History Tobacco Use Smoking status: Former Packs/day: 0.50 Years: 5.00 Additional pack years: 0.00 Total pack years: 2.50 Types: Cigarettes Passive exposure: Current Smokeless tobacco: Never Substance and Sexual Activity Alcohol use: Yes Comment: Occasional Drug use: No Sexual activity: Yes Partners: Male control/protection: Condom ALLERGIES Allergen Reactions Adhesive Tape-Silic* Rash Cephalexin Rash Doxycycline Rash, Hives, Other: See Comments Patient c/o dizziness, rash and then hives Sulfamethoxazole GI Upset Vicodin [Hydrocodon* Review of Systems Constitutional: Negative for activity change, appetite change, chills, diaphoresis, fatigue, fever and unexpected weight change. HENT: Negative. Eyes: Negative. Respiratory: Negative. Cardiovascular: Negative. Gastrointestinal: Positive for anal bleeding and rectal pain. Negative for abdominal distention, abdominal pain, blood in stool, constipation, diarrhea, nausea and vomiting. Endocrine: Negative. Genitourinary: Negative for decreased urine volume, difficulty urinating, dyspareunia, flank pain, frequency, genital sores, hematuria, menstrual problem, pelvic pain, urgency, vaginal bleeding, vaginal discharge and vaginal pain. Musculoskeletal: Negative. Skin: Negative. Allergic/Immunologic: Negative. Neurological: Negative. Hematological: Negative. Psychiatric/Behavioral: Negative. Physical Exam Vitals [09/04/231946] BP Pulse Temp Temp src Resp SpO2 Weight Height 120/83 76 37.1 ?C (98.7 ?F) Oral 16 99 % 91.3 kg (201 lb 4.5 oz) 1.448 m (4' 9) Physical Exam Exam conducted with a esthetician/spa coordinator present. Constitutional: General: She is not in acute distress. Appearance: Normal appearance. She is not ill-appearing, toxic-appearing or diaphoretic. HENT: Head: Normocephalic and atraumatic. Nose: Nose normal. Mouth/Throat: Mouth: Mucous membranes are moist. Eyes: General: No scleral icterus. Right eye: No discharge. Left eye: No discharge. Extraocular Movements: Extraocular movements intact. Conjunctiva/sclera: Conjunctivae normal. Pupils: Pupils are equal, round, and reactive to light. Cardiovascular: Rate and Rhythm: Normal rate and regular rhythm. Pulmonary: Effort: Pulmonary effort is normal. No respiratory distress. Abdominal: General: Abdomen is flat. Bowel sounds are normal. Palpations: Abdomen is soft. Tenderness: There is no abdominal tenderness. Genitourinary: Rectum: Guaiac result negative. Tenderness and internal hemorrhoid present. No mass, anal fissure or external hemorrhoid. Normal anal tone. Comments: No rectal bleeding appreciated with examination. Musculoskeletal: General: No swelling, tenderness, deformity or signs of injury. Normal range of motion. Cervical back: Normal range of motion and neck supple. No rigidity or tenderness. Right lower leg: No edema. Left lower leg: No edema. Skin: General: Skin is warm and dry. Capillary Refill: Capillary refill takes less than 2 seconds. Coloration: Skin is not jaundiced or pale. Findings: No erythema or rash. Neurological: General: No focal deficit present. Mental Status: She is alert and oriented to person, place, and time. Mental status is at baseline. Cranial Nerves: No cranial nerve deficit. Motor: No weakness. Psychiatric: Mood and Affect: Mood shruthi (more content not included)... Normal [facility] CBC W Auto Differential pane l (Bld)on 08-04-2023 Basophils (Bld) [#/Vol] 0.03 10*3/uL Normal <0.11 [facility] Comment on above: Order Comment: Speci men Type: BLOOD SPECIMENOrdering Facility: [facility] Address: [address] [place] [address] Performed By: #### 5 7021-8 ####[facility] [id number] [place] [address] [place] Basophils/100 WBC (Bld) 0.4 % Normal [facility] Comment on above: Order Comment: Speci men Type: BLOOD SPECIMENOrdering Facility: [facility] Address: [address] [place] [address] Performed By: #### 5 7021-8 ####[facility] [id number] [place] [address] [place] Differential cell count method Nom (Bld) Auto Normal [facility] Comment on above: Order Comment: Speci men Type: BLOOD SPECIMENOrdering Facility: [facility] Address: [address] [place] [address] Performed By: #### 5 7021-8 ####[facility] [id number] [place] [address] [place] Eosinophils (Bld) [#/Vol] 0.23 10*3/uL Normal <0.46 [facility] Comment on above: Order Comment: Speci men Type: BLOOD SPECIMENOrdering Facility: [facility] Address: [address] [place] [address] Performed By: #### 5 7021-8 ####[facility] [id number] [place] [address] [place] Eosinophils/100 WBC (Bld) 3.2 % Normal [facility] Comment on above: Order Comment: Speci men Type: BLOOD SPECIMENOrdering Facility: [facility] Address: [address] [place] [address] Performed By: #### 5 7021-8 ####[facility] [id number] [place] [address] [place] Erythrocyte distribution width (RBC) [Ratio] 14.7 % Normal 11.5-15.0 [facility] Comment on above: Order Comment: Speci men Type: BLOOD SPECIMENOrdering Facility: [facility] Address: [address] [place] [address] Performed By: #### 5 7021-8 ####[facility] [id number] [place] [address] [place] Hematocrit (Bld) [Volume fraction] 40.2 % Normal 36.0-46.0 [facility] Comment on above: Order Comment: Speci men Type: BLOOD SPECIMENOrdering Facility: [facility] Address: [address] [place] [address] Performed By: #### 5 7021-8 ####[facility] [id number] [place] [address] [place] Hemoglobin (Bld) [Mass/Vol] 12.9 g/dL Normal 11.5-15.5 [facility] Comment on above: Order Comment: Speci men Type: BLOOD SPECIMENOrdering Facility: [facility] Address: [address] [place] [address] Performed By: #### 5 7021-8 ####[facility] [id number] [place] [address] [place] Immature granulocytes (Bld) [#/Vol] 0.05 10*3/uL Normal <0.10 [facility] Comment on above: Order Comment: Speci men Type: BLOOD SPECIMENOrdering Facility: [facility] Address: [address] [place] [address] Performed By: #### 5 7021-8 ####[facility] [id number] [address] Immature granulocytes/100 WBC (Bld) 0.7 % Normal [facility] Comment on above: Order Comment: Speci men Type: BLOOD SPECIMENOrdering Facility: [facility] Address: [address] [place] [address] Performed By: #### 5 7021-8 ####[facility] [id number] [address] [place] [facility] Lymphocytes (Bld) [#/Vol] 1.73 10*3/uL Normal 1.00-4.00 [facility] Comment on above: Order Comment: Speci men Type: BLOOD SPECIMENOrdering Facility: [facility] Address: [address] [place] [address] Performed By: #### 5 7021-8 ####[facility] [id number] [address] Lymphocytes/100 WBC (Bld) 23.9 % Normal [facility] Comment on above: Order Comment: Speci men Type: BLOOD SPECIMENOrdering Facility: [facility] Address: [address] [place] [address] Performed By: #### 5 7021-8 ####[facility] [id number] [address] [place] MCH (RBC) [Entitic mass] 30.1 pg Normal 26.0-34.0 [facility] Comment on above: Order Comment: Speci men Type: BLOOD SPECIMENOrdering Facility: [facility] Address: [address] [place] [address] Performed By: #### 5 7021-8 ####[facility] [id number] [address] [place] [facility] MCHC (RBC) [Mass/Vol] 32.1 g/dL Normal 30.5-36.0 [facility] Comment on above: Order Comment: Speci men Type: BLOOD SPECIMENOrdering Facility: [facility] Address: [address] [place] [address] Performed By: #### 5 7021-8 ####[facility] [id number] [place] [address] [place] MCV (RBC) [Entitic vol] 93.9 fL Normal 80.0-100.0 [facility] Comment on above: Order Comment: Speci men Type: BLOOD SPECIMENOrdering Facility: [facility] Address: [address] [place] [address] Performed By: #### 5 7021-8 ####[facility] [id number] [place] [address] [place] Monocytes (Bld) [#/Vol] 0.67 10*3/uL Normal <0.87 [facility] Comment on above: Order Comment: Speci men Type: BLOOD SPECIMENOrdering Facility: [facility] Address: [address] [place] [address] Performed By: #### 5 7021-8 ####[facility] [id number] [place] [address] [place] Monocytes/100 WBC (Bld) 9.2 % Normal [facility] Comment on above: Order Comment: Speci men Type: BLOOD SPECIMENOrdering Facility: [facility] Address: [address] [place] [address] Performed By: #### 5 7021-8 ####[facility] [id number] [place] [address] [place] Neutrophils (Bld) [#/Vol] 4.54 10*3/uL Normal 1.45-7.50 [facility] Comment on above: Order Comment: Speci men Type: BLOOD SPECIMENOrdering Facility: [facility] Address: [address] [place] [address] Performed By: #### 5 7021-8 ####[facility] [id number] [place] [address] [place] Neutrophils/100 WBC (Bld) 62.6 % Normal [facility] Comment on above: Order Comment: Speci men Type: BLOOD SPECIMENOrdering Facility: [facility] Address: [address] [place] [address] Performed By: #### 5 7021-8 ####[facility] [id number] [place] [address] [place] Nucleated RBC (Bld) [#/Vol] 10*3/uL Normal <0.01 [facility] Comment on above: Order Comment: Speci men Type: BLOOD SPECIMENOrdering Facility: [facility] Address: [address] [place] [address] Performed By: #### 5 7021-8 ####[facility] [id number] [place] [address] [place] Nucleated RBC/100 WBC (Bld) [Ratio] 0.0 /100 WBC Normal [facility] Comment on above: Order Comment: Speci men Type: BLOOD SPECIMENOrdering Facility: [facility] Address: [address] [place] [address] Performed By: #### 5 7021-8 ####[facility] [id number] [place] [address] [place] Platelet mean volume (Bld) [Entitic vol] 9.6 fL Normal 9.0-12.7 [facility] Comment on above: Order Comment: Speci men Type: BLOOD SPECIMENOrdering Facility: [facility] Address: [address] [place] [address] Performed By: #### 5 7021-8 ####[facility] [id number] [place] [address] [place] Platelets (Bld) [#/Vol] 318 10*3/uL Normal 150-400 [facility] Comment on above: Order Comment: Speci men Type: BLOOD SPECIMENOrdering Facility: [facility] Address: [address] [place] [address] Performed By: #### 5 7021-8 ####[facility] [id number] [place] [address] [place] RBC (Bld) [#/Vol] 4.28 10*6/uL Normal 3.90-5.20 [facility] Comment on above: Order Comment: Speci men Type: BLOOD SPECIMENOrdering Facility: [facility] Address: [address] [place] [address] Performed By: #### 5 7021-8 ####[facility] [id number] [place] [address] [place] [facility] WBC (Bld) [#/Vol] 7.25 10*3/uL Normal 3.70-11.00 [facility] Comment on above: Order Comment: Speci men Type: BLOOD SPECIMENOrdering Facility: [facility] Address: [address] [place] [address] Performed By: #### 5 7021-8 ####[facility] [id number] [place] [address] [facility] Comprehensive metabolic 2000 panelon 08-04-2023 Albumin [Mass/Vol] 4.3 g/dL Normal 3.9-4.9 [facility] Comment on above: Order Comment: Speci men Type: BLOOD SPECIMENOrdering Facility: [facility] Address: [address] [place] [address] Performed By: #### 1 9123-9, 70807-1 ####[facility] [id number] [place] [address] [place] ALP [Catalytic activity/Vol] 69 U/L Normal 34-123 [facility] Comment on above: Order Comment: Speci men Type: BLOOD SPECIMENOrdering Facility: [facility] Address: [address] [place] [address] Performed By: #### 1 9123-9, 50463-8 ####[facility] [id number] [place] [address] [place] [facility] ALT [Catalytic activity/Vol] 40 U/L High 7-38 [facility] Comment on above: Order Comment: Speci men Type: BLOOD SPECIMENOrdering Facility: [facility] Address: [address] [place] [address] Performed By: #### 1 9123-9, ####[facility] [id number] [place] [address] [place] Anion gap [Moles/Vol] 9 mmol/L Normal 9-18 [facility] Comment on above: Order Comment: Speci men Type: BLOOD SPECIMENOrdering Facility: [facility] Address: [address] [place] [address] Performed By: #### 1 9123-9, ####[facility] [id number] [place] [address] [place] AST [Catalytic activity/Vol] 28 U/L Normal 13-35 [facility] Comment on above: Order Comment: Speci men Type: BLOOD SPECIMENOrdering Facility: [facility] Address: [address] [place] [address] Performed By: #### 1 239, ####[facility] [id number] [place] [address] [place] Bilirubin [Mass/Vol] 0.4 mg/dL Normal 0.2-1.3 [facility] Comment on above: Order Comment: Speci men Type: BLOOD SPECIMENOrdering Facility: [facility] Address: [address] [facility] [place] [address] Performed By: #### 1 91239, ####[facility] [id number] [place] [address] [place] Calcium [Mass/Vol] 9.7 mg/dL Normal 8.5-10.2 [facility] Comment on above: Order Comment: Speci men Type: BLOOD SPECIMENOrdering Facility: [facility] Address: [place] [address] Performed By: #### 1 9123-9, ####[facility] [id number] [place] [address] [place] Chloride [Moles/Vol] 99 mmol/L Normal 97-105 [facility] Comment on above: Order Comment: Speci men Type: BLOOD SPECIMENOrdering Facility: [facility] Address: [address] [place] [address] Performed By: #### 1 9123-9, ####[facility] [id number] [place] [address] [place] CO2 [Moles/Vol] 26 mmol/L Normal 22-30 [facility] Comment on above: Order Comment: Speci men Type: BLOOD SPECIMENOrdering Facility: [facility] Address: [address] [place] [address] Performed By: #### 1 239, ####[facility] [id number] [address] [place] [facility] Creatinine [Mass/Vol] 0.85 mg/dL Normal 0.58-0.96 [facility] Comment on above: Order Comment: Speci men Type: BLOOD SPECIMENOrdering Facility: [facility] Address: [address] [place] [address] Performed By: #### 1 9123-9, ####[facility] [id number] [address] Creatinine and Glomerular filtration rate.predicted panel (S/P/Bld) 87 mL/min/1.73m??? Normal >=60 [facility] Comment on above: Order Comment: Speci men Type: BLOOD SPECIMENOrdering Facility: [facility] Address: [address] [place] [address] Result Comment: Dorie mated Glomerular Filtration Rate (eGFR) is calculated using the 2020 CKD-EPI creatinine equation. This equation utilizes serum creatinine, sex, and age as parameters. The creatinine assay has traceable calibration to isotope dilution-mass spectrometry. Refer to KDIGO guidelines for clinical interpretation. In patients with unstable renal function, e.g. those with acute kidney injury, the eGFR may not accurately reflect actual GFR. Performed By: #### 1 9123-9, 70116-1 ####[facility] [id number] [place] [address] [place] Glucose [Mass/Vol] 98 mg/dL Normal 74-99 [facility] Comment on above: Order Comment: Fernandez raymond Type: BLOOD SPECIMENOrdering Facility: [facility] Address: [address] [place] [address] Result Comment: The [place] Diabetes Association (ADA) provides guidance for cutoff values for fasting glucose and random glucose. The ADA defines fasting as no caloric intake for at least 8 hours. Fasting plasma glucose results between 100 to 125 mg/dL indicate increased risk for diabetes (prediabetes). Fasting plasma glucose results greater than or equal to 126 mg/dL meet the criteria for diagnosis of diabetes. In the absence of unequivocal hyperglycemia, results should be confirmed by repeat testing. In a patient with classic symptoms of hyperglycemia or hyperglycemic crisis, random plasma glucose results greater than or equal to 200 mg/dL meet the criteria for diagnosis of diabetes. Reference: Standards of Medical Care in Diabetes 2016, [place] [employer] Association. Diabetes Care. 2016.39(Suppl 1). Performed By: #### 1 9123-9, ####[facility] [id number] [place] [address] [place] Potassium [Moles/Vol] 4.0 mmol/L Normal 3.7-5.1 [facility] Comment on above: Order Comment: Fernandez raymond Type: BLOOD SPECIMENOrdering Facility: [facility] Address: [address] [place] [address] Performed By: #### 1 9123-9, ####[facility] [id number] [place] [address] [place] Protein [Mass/Vol] 6.7 g/dL Normal 6.3-8.0 [facility] Comment on above: Order Comment: Fernandez raymond Type: BLOOD SPECIMENOrdering Facility: [facility] Address: [address] [place] [address] Performed By: #### 1 9123-9, ####[facility] [id number] [place] [address] [place] Sodium [Moles/Vol] 134 mmol/L Low 136-144 [facility] Comment on above: Order Comment: Speci men Type: BLOOD SPECIMENOrdering Facility: [facility] Address: [address] [place] [id number] Performed By: #### 1 9123-9, 50877-5 ####[facility] [id number] [address] Urea nitrogen [Mass/Vol] 13 mg/dL Normal 7-21 [facility] Comment on above: Order Comment: Speci men Type: BLOOD SPECIMENOrdering Facility: [facility] Address: [address] [place] [id number] Performed By: #### 1 9123-9, ####[facility] [id number] [address] ED NOTEon 08-04-2023 ED NOTE HNO ID: [id number] Author: Jayashree Ordonez RN Service: ? Author Type: Registered Nurse Type: ED Notes Filed: 08/04/2023 5:26 PM Note Text: Pt reports nausea and yellow diarrhea for 3-4 days. Increased abdominal and rectal pain, hx of hemorrhoids. Every time she eats she has to run to the bathroom. Hx of cholecystectomy. Normal [facility] ED PROV NOTEon 08-04-2023 ED PROV NOTE HNO ID: [id number] Author: Shakira Ingram MD Service: Emergency Medicine Author Type: Physician Type: ED Provider Notes Filed: 08/04/2023 7:46 PM Note Text: ED Provider Note Patient Name: Judson De La Cruz : 1980 SERVICE DATE: 08/04/23 History Patient presents with: Diarrhea Nausea Abdominal Pain 43-year-old female past medical history of diabetes who presents today with chief complaint of nausea and diarrhea. She states her symptoms have been going on for the past 3 to 4 days. Diarrhea is nonbloody. She does endorse some abdominal cramping but no abdominal pain. No fevers or chills. No recent travel. No recent antibiotic use. She states she does have a history of hemorrhoids as well and the diarrhea has been increasing her pain in this area. Decreased PO intake 2/2 nausea. PAST MEDICAL HISTORY Diagnosis Date Depression Diabetes mellitus type II, uncontrolled 1998 Dysmetabolic syndrome Gallstones Hyperlipidemia Hypothyroid 1998 Irregular menses Obesity Polycystic disease, ovaries PAST SURGICAL HISTORY Procedure Laterality Date CHOLECYSTECTOMY ORAL SURGERY PROCEDURE all teeth pulled wisdom teeth FAMILY HISTORY Problem Relation Age of Onset Cancer Mother DC age 65 Coronary Artery Disease Mother other (kidney failure) Mother other (SLE) Mother None Father None Brother None Brother Social History Tobacco Use Smoking status: Former Packs/day: 0.50 Years: 5.00 Additional pack years: 0.00 Total pack years: 2.50 Types: Cigarettes Smokeless tobacco: Never Substance and Sexual Activity Alcohol use: No Drug use: No Sexual activity: Yes Partners: Male control/protection: Condom ALLERGIES Allergen Reactions Adhesive Tape-Silic* Rash Cephalexin Rash Doxycycline Rash, Hives, Other: See Comments Patient c/o dizziness, rash and then hives Sulfamethoxazole GI Upset Vicodin [Hydrocodon* Review of Systems Constitutional: Positive for fatigue. Negative for chills and fever. Respiratory: Negative for cough and shortness of breath. Gastrointestinal: Positive for abdominal pain, diarrhea, nausea and rectal pain. Negative for blood in stool and vomiting. Physical Exam Vitals [08/04/23 1723] BP Pulse Temp Temp src Resp SpO2 Weight Height 119/84 87 36.6 ?C (97.8 ?F) Oral 20 98 % 90.6 kg (199 lb 11.8 oz) 1.435 m (4' 8.5) Physical Exam Vitals and nursing note reviewed. Constitutional: General: She is not in acute distress. Appearance: She is well-developed. She is not diaphoretic. HENT: Head: Normocephalic and atraumatic. Eyes: General: Right eye: No discharge. Left eye: No discharge. Extraocular Movements: Extraocular movements intact. Conjunctiva/sclera: Conjunctivae normal. Pupils: Pupils are equal, round, and reactive to light. Neck: Trachea: No tracheal deviation. Cardiovascular: Rate and Rhythm: Normal rate and regular rhythm. Heart sounds: Normal heart sounds. No murmur heard. No friction rub. No gallop. Pulmonary: Effort: Pulmonary effort is normal. No respiratory distress. Breath sounds: Normal breath sounds. No wheezing. Abdominal: General: Bowel sounds are normal. There is no distension. Palpations: Abdomen is soft. Tenderness: There is no abdominal tenderness. There is no guarding or rebound. Musculoskeletal: Cervical back: Normal range of motion and neck supple. Right lower leg: No edema. Left lower leg: No edema. Lymphadenopathy: Cervical: No cervical adenopathy. Skin: General: Skin is warm and dry. Capillary Refill: Capillary refill takes less than 2 seconds. Findings: No rash. Neurological: General: No focal deficit present. Mental Status: She is alert and oriented to person, place, and time. Cranial Nerves: No cranial nerve deficit. Psychiatric: Mood and Affect: Mood normal. Behavior: Behavior normal. Diagnostic Testing ED Labs Ordered and Reviewed - No data to display Procedures ED Course / Clinical Impression Clinical Impressions as of 08/04/231940 Nausea Diarrhea, unspecified type Dehydration MDM / Disposition / Plan 43-year-old female who presents today with chief complaint of nausea and diarrhea. No abdominal pain on exam. Vital signs are stable. DDX includes but not limited to: Most likely viral or foodborne illness. Also concern for dehydration or electrolyte abnormality. Doubt C. difficile or intra-abdominal process based on the history and the exam. ED course and medical decision making Labs were obtained and the patient was provided with IV fluids as well as symptom control. She has no anemia or leukocytosis. No electrolyte abnormality. She felt better on reassessment. Will discharge her home with Zofran and Imodium at her request. She also asked me to refill her triamcinolone cream which I did for her. PCP fup. Return precautions given. SIGNATURE: Shakira Ingram MD - FELIX, (more content not included)... Normal [facility] Magnesium SerPl-mCncon 08-04 Magnesium [Mass/Vol] 1.8 mg/dL Normal 1.7-2.3 [facility] Comment on above: Order Comment: Speci men Type: BLOOD SPECIMENOrdering Facility: [facility] Address: [place] [address] Performed By: #### 1 9123-9, 19033-1 ####[facility] [id number] [place] [address] [facility] [place] ED NOTEon 07-29-2023 ED NOTE HNO ID: [id number] Author: Phyllis Andrade RN Service: ? Author Type: Registered Nurse Type: ED Notes Filed: 07/29/2023 1:16 AM Note Text: This RN discussed discharge instructions with pt, including follow up and medications. Pt verbalized understanding. Pt ambulatory from department with steady gait. [facility] ED PROV NOTEon 07-29-2023 ED PROV NOTE HNO ID: [id number] Author: Betsy Griffin MD Service: Emergency Medicine Author Type: Physician Type: ED Provider Notes Filed: 07/29/2023 12:53 AM Note Text: ED Provider Note Patient Name: Judson De La Cruz : 1980 SERVICE DATE: 07/28/23 History Patient presents with: Foreign Body Judson De La Cruz is a 43 year old female who presents with a chief complaint of a cough. The patient reports that she was eating a lemon drop when she believes she inhaled it. She has had a cough since that time. She denies shortness of breath. She was transported hospital by EMS. 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 PAST MEDICAL HISTORY Diagnosis Date Depression Diabetes mellitus type II, uncontrolled 1998 Dysmetabolic syndrome Gallstones Hyperlipidemia Hypothyroid 1998 Irregular menses Obesity Polycystic disease, ovaries PAST SURGICAL HISTORY Procedure Laterality Date CHOLECYSTECTOMY ORAL SURGERY PROCEDURE all teeth pulled wisdom teeth FAMILY HISTORY Problem Relation Age of Onset Cancer Mother DC age 65 Coronary Artery Disease Mother other (kidney failure) Mother other (SLE) Mother None Father None Brother None Brother Social History Tobacco Use Smoking status: Former Packs/day: 0.50 Years: 5.00 Additional pack years: 0.00 Total pack years: 2.50 Types: Cigarettes Smokeless tobacco: Never Substance and Sexual Activity Alcohol use: No Drug use: No Sexual activity: Yes Partners: Male control/protection: Condom ALLERGIES Allergen Reactions Adhesive Tape-Silic* Rash Cephalexin Rash Doxycycline Rash, Hives, Other: See Comments Patient c/o dizziness, rash and then hives Sulfamethoxazole GI Upset Vicodin [Hydrocodon* Review of Systems: Review of systems as per History of Present Illness. Physical Exam Vitals [07/28/23 2352] BP Pulse Temp Temp src Resp SpO2 Weight Height 120/68 (!) 115 37 ?C (98.6 ?F) Oral 20 99 % 95.3 kg (210 lb) -- Physical Exam: Vital signs and nursing notes have been reviewed. General: The patient is well-developed, well-nourished, and in no acute distress. Head: The patient is normocephalic and atraumatic. Neck: The neck is supple with no JVD. Eyes: Ocular examination reveals the pupils to be equal, round, and reactive to light. Extraocular muscles are noted to be intact. Sclera are anicteric. Oropharynx: Examination of the oropharynx reveals mucous membranes to be moist with no erythema, exudates, or lesions. The uvula is midline. The airway is patent. Cardiovascular: Cardiovascular examination reveals a normal S1 and S2 with a regular rate and rhythm. There are no murmurs, gallops, or rubs. Pulmonary: Pulmonary examination reveals the breath sounds to be clear to auscultation bilaterally. There are no wheezes, rales, or rhonchi. The patient does have a nonproductive cough upon initial presentation. Abdominal: Abdominal examination reveals the abdomen to be soft with positive bowel sounds. There is no guarding, rigidity, or rebound tenderness. This is a benign abdominal examination. Musculoskeletal: There is no cyanosis, clubbing, or edema, of the extremities. There are no deformities of the extremities. Skin: The skin is warm and dry with no rashes or lesions. Neurologic: The patient is alert and oriented x3. Cranial nerves II through XII are grossly intact. There are no focal or lateralizing neurologic deficits appreciated. Diagnostic Testing ED Labs Ordered and Reviewed - No data to display Procedures ED Course / Clinical Impression ED Course as of 07/29/23 0053 Betys Griffin's Documentation Sat Jul 29, 2023 0020 The patient was discussed with Dr. White. He is agreement with initial management and diagnostic evaluation. There is no indication for emergent bronchoscopy. Clinical Impressions as of 07/29/23 0053 Acute cough MDM / Disposition / Plan The patient presents with a chief complaint of cough with possible foreign body aspiration. The differential diagnosis at this time includes but is not limited to: Foreign body aspiration. There is no visible foreign body upon chest x-ray imaging. There is no indication for advanced imaging with CT. 2. Pneumonitis. There are no abnormal findings on chest x-ray. There is no clinical radiographic evidence for pneumonitis. 3. Pneumonia. Due to the findings of cough there is clinical concern for pneumonia. Chest x-ray imaging is obtained and demonstrates findings of no evidence for infiltrate. The patient upon today's evaluation has a clinical impression of cough. The recommended management plan is discharge. I have discussed the results of today's diagnostic evaluation, my clinical impression clinical impression, and recommended management plan with the patient. She has voiced understanding, have been afforded the opportunity to ask (more content not included)... [facility] XR CHEST 1V FRONTAL PORTon 1 09-29-2022 XR CHEST 1V FRONTAL PORT * * *Final Report* * * DATE OF EXAM: Jul 29 2023 12:27AM UDX [id number] - XR CHEST 1V FRONTAL PORT / PROCEDURE REASON: Shortness of breath * * * * Physician Interpretation * * * * EXAMINATION: ONE XRAY VIEW OF THE CHEST07/28/2023 10:27 pm CHEST ONE VIEW AP/PA EXAM DESCRIPTION: HISTORY: ORDERING SYSTEM PROVIDED HISTORY: TECHNOLOGIST PROVIDED HISTORY: STATED HISTORY: Pt states choked on a piece of hard candy and states it feels like it is still stuck in her throat. Slight difficulty breathing. Cough. Reason for Exam: Shortness of breath FINDINGS: Single AP radiograph of the chest was obtained. The lungs are clear without evidence of focal consolidation, mass, pleural effusion, or pneumothorax. The cardiomediastinal silhouette is unremarkable. The bones and soft tissues are unremarkable. IMPRESSION: No radiographic evidence of acute cardiopulmonary disease. Electronically signed By Daniel Rios MD 07/29/2023 12:38:28 AM EST Workstation ID : [id number] Hot Man: [id number] Transcribe Date/Time: Jul 29 2023 12:38A Dictated by : DANIEL RIOS MD This examination was interpreted and the report reviewed and electronically signed by: DANIEL RIOS MD on Jul 29 2023 12:38AM EST [id number] [facility] ED NOTEon 07-28-2023 ED NOTE HNO ID: [id number] Author: Phyllis Andrade, ZULLY Service: ? Author Type: Registered Nurse Type: ED Notes Filed: 07/28/2023 11:56 PM Note Text: Pt is 43yo female presenting to ED c/o having a piece of candy stuck in her throat. Pt states she is not having difficulty breathing. [facility] ED NOTE HNO ID: [id number] Author: Jodi John RN Service: ? Author Type: Registered Nurse Type: ED Notes Filed: 07/28/2023 11:49 PM Note Text: Bed: 15-ED Expected date: 07/28/23 Expected time: Means of arrival: [facility] Comments: CHOKING ON A PIECE OF CANDY [facility] ED NOTEon 07-27-2023 ED NOTE HNO ID: [id number] Author: Malika العراقي RN Service: ? Author Type: Registered Nurse Type: ED Notes Filed: 07/27/2023 2:54 PM Note Text: Pt walked to restroom at this time. Pt standing at sink cleaning self off with wet paper towels. Pt resp easy and unlabored NAD noted. [facility] ED NOTE HNO ID: [id number] Author: Malika العراقي RN Service: ? Author Type: Registered Nurse Type: ED Notes Filed: 07/27/2023 1:20 PM Note Text: Pt arrives to ED via EMS with C/O head pain to top of head. Pt states stood up to fast while getting firewood two days ago and hit head off of tree branch. Pt denies LOC or use of blood thinners. Pt also reports left second digit finger pain after smashing finger between two doors several weeks ago and believes broke finger. Pt is alert and oriented x4, resp easy and unlabored. NAD noted. [facility] ED NOTE HNO ID: [id number] Author: Malika العراقي RN Service: ? Author Type: Registered Nurse Type: ED Notes Filed: 07/27/2023 1:17 PM Note Text: Bed: 11-ED Expected date: 07/27/23 Expected time: 1:07 PM Means of arrival: [facility] Comments: Head Pain [facility] ED PROV NOTEon 07-27-2023 ED PROV NOTE HNO ID: [id number] Author: Tina Wakefield PA-C Service: ? Author Type: Physician Residential Sales Representative Type: ED Provider Notes Filed: 07/27/2023 3:45 PM Note Text: ED Provider Note Patient Name: Judson De La Cruz : 1980 SERVICE DATE: 07/27/23 History No chief complaint on file. 43yo female presenting with constellation of symptoms. Pt complains of headache, left 2nd digit pain, nasal congestion, cough. States several weeks ago her left 2nd digit was smashed in a door. She did not see anyone for this. States 2 days ago she was carrying firewood and hit her head on a branch - denies loc or blood thinner use. States she has been having some headaches, took tylenol yesterday which seemed to help. She has not taken any tylenol today. States she has had some chills, nasal congestion, cough, n/v for about a week. Denies any known sick contacts. 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 PAST MEDICAL HISTORY Diagnosis Date Depression Diabetes mellitus type II, uncontrolled 1998 Dysmetabolic syndrome Gallstones Hyperlipidemia Hypothyroid 1998 Irregular menses Obesity Polycystic disease, ovaries PAST SURGICAL HISTORY Procedure Laterality Date CHOLECYSTECTOMY ORAL SURGERY PROCEDURE all teeth pulled wisdom teeth FAMILY HISTORY Problem Relation Age of Onset Cancer Mother DC age 65 Coronary Artery Disease Mother other (kidney failure) Mother other (SLE) Mother None Father None Brother None Brother Social History Tobacco Use Smoking status: Former Packs/day: 0.50 Years: 5.00 Additional pack years: 0.00 Total pack years: 2.50 Types: Cigarettes Smokeless tobacco: Never Substance and Sexual Activity Alcohol use: No Drug use: No Sexual activity: Yes Partners: Male control/protection: Condom ALLERGIES Allergen Reactions Adhesive Tape-Silic* Rash Cephalexin Rash Doxycycline Rash, Hives, Other: See Comments Patient c/o dizziness, rash and then hives Sulfamethoxazole GI Upset Vicodin [Hydrocodon* Review of Systems Constitutional: Positive for chills. Negative for fever. HENT: Positive for congestion. Negative for ear pain and sore throat. Eyes: Negative for visual disturbance. Respiratory: Positive for cough. Negative for shortness of breath. Cardiovascular: Negative for chest pain and palpitations. Gastrointestinal: Positive for nausea and vomiting. Negative for abdominal pain. Genitourinary: Negative for dysuria and urgency. Musculoskeletal: Positive for arthralgias (left 2nd digit). Skin: Negative for rash. Neurological: Positive for headaches. Negative for dizziness. Psychiatric/Behavioral: Negative for confusion. Physical Exam Vitals BP Pulse Temp Temp src Resp SpO2 Weight Height 12/07/23 1322 07/27/23 1322 07/27/23 1330 07/27/23 1330 07/27/23 1322 07/27/23 1322 07/27/23 1322 07/27/23 1330 117/80 85 36.9 ?C (98.4 ?F) Oral 18 98 % 95.4 kg (210 lb 5.1 oz) 1.422 m (4' 8) Physical Exam Vitals and nursing note reviewed. Constitutional: General: She is not in acute distress. Appearance: She is not ill-appearing. HENT: Head: Normocephalic and atraumatic. Mouth/Throat: Mouth: Mucous membranes are moist. Eyes: Extraocular Movements: Extraocular movements intact. Cardiovascular: Rate and Rhythm: Normal rate and regular rhythm. Pulmonary: Effort: Pulmonary effort is normal. No respiratory distress. Breath sounds: Wheezing present. No rhonchi. Abdominal: General: Abdomen is flat. Palpations: Abdomen is soft. Musculoskeletal: General: Normal range of motion. Left hand: Bony tenderness (2nd digit) present. No deformity or lacerations. Normal range of motion. Normal capillary refill. Normal pulse. Skin: General: Skin is warm and dry. Neurological: General: No focal deficit present. Mental Status: She is alert and oriented to person, place, and time. Mental status is at baseline. Cranial Nerves: No cranial nerve deficit. Sensory: No sensory deficit. Motor: No weakness. Psychiatric: Mood and Affect: Mood normal. Diagnostic Testing ED Labs Ordered and Reviewed - No data to display Procedures ED Course / Clinical Impression Clinical Impressions as of 07/27/23 1544 Contusion of left index finger without damage to nail, initial encounter Injury of head, initial encounter Mild asthma with exacerbation, unspecified whether persistent MDM / Disposition / Plan 43yo female presenting with constellation of symptoms. Pt complains of headache, left 2nd digit pain, nasal congestion, cough. Reports injury to left 2nd digit. States 2 days ago she was carrying firewood and hit her head on a branch - denies loc or blood thinner use. States she has had some chills, nasal congestion, cough, n/v for about a week - suspect viral etiology. On exam, tenderness to the left 2nd digit. No focal neuro deficits. Wheezing on exam. Reports hx of asthm (more content not included)... [facility] XR HAND 3V PA/LAT/OBL LTon 1 09-27-2022 XR HAND 3V PA/LAT/OBL LT * * *Final Report* * * DATE OF EXAM: Jul 27 2023 2:54PM UDX [id number] - XR HAND 3V PA/LAT/OBL LT / PROCEDURE REASON: Trauma * * * * Physician Interpretation * * * * EXAMINATION: THREE XRAY VIEWS OF THE LEFT HAND 07/27/2023 2:54 pm COMPARISON: None. HISTORY: ORDERING SYSTEM PROVIDED HISTORY: TECHNOLOGIST PROVIDED HISTORY: STATED HISTORY: PT STATES PAIN IN LEFT HAND 2NS DIGIT STATES SMASHED IT PAIN AROUND LEFT HAND 2ND DIGIT PIP JOINT Reason for Exam: Trauma Crush injury 2nd digit. FINDINGS: Soft tissue swelling surrounds the proximal interphalangeal joint 2nd finger left hand. The underlying skeletal elements are intact. There is no acute fracture line, subluxation or foreign body. IMPRESSION: 1. No acute bony abnormality left hand. 2. Soft tissue swelling proximal aspect left 2nd finger is nonspecific. Electronically signed By Cash You DO 07/27/2023 3:12:40 PM EST Workstation ID : [id number] Hot Man: Transcribe Date/Time: Jul 27 2023 3:12P Dictated by : CASH YOU DO This examination was interpreted and the report reviewed and electronically signed by: CASH YOU DO on Jul 27 2023 3:12PM EST [id number] [facility] ED PROV NOTEon 07-14-2023 ED PROV NOTE HNO ID: [id number] Author: Ingrid Bobby DO Service: ? Author Type: Physician Type: ED Provider Notes Filed: 07/14/2023 8:00 PM Note Text: ED Provider Note Patient Name: Judson De La Cruz : 1980 SERVICE DATE: 07/14/23 History Patient presents with: Wound Check: Blister on right pinky toe. Patient is a 43-year-old female presenting to emergency department chief complaint of blister to her right fifth toe. Patient states that this started yesterday. Patient states she has been doing a lot of walking as she is homeless. Patient states her shoes are too tight and has been rubbing up against her toe. She is diabetic. She was concerned about the blister. She has no other associated symptoms at this time. Has not injured her foot at all. No fevers. No chills. 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 PAST MEDICAL HISTORY Diagnosis Date Depression Diabetes mellitus type II, uncontrolled 1998 Dysmetabolic syndrome Gallstones Hyperlipidemia Hypothyroid 1998 Irregular menses Obesity Polycystic disease, ovaries PAST SURGICAL HISTORY Procedure Laterality Date CHOLECYSTECTOMY ORAL SURGERY PROCEDURE all teeth pulled wisdom teeth FAMILY HISTORY Problem Relation Age of Onset Cancer Mother DC age 65 Coronary Artery Disease Mother other (kidney failure) Mother other (SLE) Mother None Father None Brother None Brother Social History Tobacco Use Smoking status: Former Packs/day: 0.50 Years: 5.00 Additional pack years: 0.00 Total pack years: 2.50 Types: Cigarettes Smokeless tobacco: Never Substance and Sexual Activity Alcohol use: No Drug use: No Sexual activity: Yes Partners: Male control/protection: Condom ALLERGIES Allergen Reactions Adhesive Tape-Silic* Rash Cephalexin Rash Doxycycline Rash, Hives, Other: See Comments Patient c/o dizziness, rash and then hives Sulfamethoxazole GI Upset Vicodin [Hydrocodon* Review of Systems All other systems reviewed and are negative. Physical Exam Vitals [07/14/231943] BP Pulse Temp Temp src Resp SpO2 Weight Height 137/85 90 36.6 ?C (97.9 ?F) Oral 18 99 % 88.6 kg (195 lb 5.2 oz) 1.422 m (4' 8) Physical Exam Vitals and nursing note reviewed. Constitutional: General: She is not in acute distress. Appearance: Normal appearance. She is not ill-appearing, toxic-appearing or diaphoretic. HENT: Head: Normocephalic and atraumatic. Mouth/Throat: Mouth: Mucous membranes are moist. Pharynx: Oropharynx is clear. Eyes: General: No scleral icterus. Conjunctiva/sclera: Conjunctivae normal. Cardiovascular: Rate and Rhythm: Normal rate and regular rhythm. Pulses: Normal pulses. Heart sounds: No murmur heard. Pulmonary: Effort: Pulmonary effort is normal. Breath sounds: Normal breath sounds. No stridor. No wheezing or rhonchi. Abdominal: General: Abdomen is flat. There is no distension. Palpations: Abdomen is soft. Tenderness: There is no abdominal tenderness. Musculoskeletal: General: No swelling. Cervical back: No rigidity. Right lower leg: No edema. Left lower leg: No edema. Skin: General: Skin is warm and dry. Capillary Refill: Capillary refill takes less than 2 seconds. Findings: No rash. Comments: Patient had a small approximately 1 cm blister to her right fifth toe on the medial aspect of this. There is no surrounding erythema. No signs of cellulitis or infection. This was filled with serous fluid. Neurovascular intact. She has strong pedal pulse normal distal sensation capillary refill and perfusion. No streaking. Neurological: General: No focal deficit present. Mental Status: She is alert and oriented to person, place, and time. Mental status is at baseline. Psychiatric: Mood and Affect: Mood normal. Behavior: Behavior normal. Diagnostic Testing ED Labs Ordered and Reviewed - No data to display Procedures ED Course / Clinical Impression Clinical Impressions as of 07/14/231956 Blister of fifth toe MDM / Disposition / Plan Patient was hemodynamically stable, nonseptic nontoxic upon arrival. Here in the emergency department patient has a blister to her right fifth toe which she states has been due to walking in tight shoes. There is no signs of infection. Here in the emergency department I cleaned this blister and took a 25-gauge needle and drained this down to try to help give her comfort. We are going to get her a pair of hospital socks. At this point I do not see any indication for antibiotics. I do not think any further test or imaging is acquired here emergently. Patient's can be discharged home in stable condition. Disposition The patient was discharged. Counseled patient regarding suspected diagnosis. SIGNATURE: Ingrid Bobby DO, DO WOLF, CONNOR B DO 07/14/231999 [facility] NURSING PROGon 07-14-2023 NURSING PROG HNO ID: [id number] Author: Gaye Gandhi RN Service: Nursing Author Type: Registered Nurse Type: Nursing Progress Note Filed: 07/14/2023 7:55 PM Note Text: Pt arrived to ED room 1 from triage. Per pt she was at her cousins moving today and was not wearing proper shoes. Her right pinky toe has a noticeable blister. Pt states her right pinky toe is sore. MD Bobby at bedside. Call light within reach. [facility] ED NOTEon 07-10-2023 ED NOTE HNO ID: [id number] Author: Page Coughlin RN Service: Emergency Medicine Author Type: Registered Nurse Type: ED Notes Filed: 07/10/2023 11:00 PM Note Text: PT VERBALLY DEMONSTRATES UNDERSTANDING OF DISCHARGE PAPERWORK AND DENIES ANY FURTHER QUESTIONS AT THIS TIME. PT D/C FROM ER VIA ambulatory WITHOUT INCIDENT. [facility] ED NOTE HNO ID: [id number] Author: Page Coughlin RN Service: Emergency Medicine Author Type: Registered Nurse Type: ED Notes Filed: 07/10/2023 10:56 PM Note Text: Pt is concerned she is not well enough to go back out in the cold. Pt reassured medically she is stable to be discharged and she is always welcome to come back with new or worsening symptoms. [facility] ED NOTE HNO ID: [id number] Author: Page Coughlin RN Service: Emergency Medicine Author Type: Registered Nurse Type: ED Notes Filed: 07/10/2023 10:38 PM Note Text: Pt given po meds. Pt tolerates well. Pt has no other needs at this time. Cl in reach [facility] ED NOTE HNO ID: [id number] Author: Page Coughlin RN Service: Emergency Medicine Author Type: Registered Nurse Type: ED Notes Filed: 07/10/2023 10:38 PM Note Text: Pt presents to ed for cough sore throat and generally not feeling well for a few days. Pt is alert and oriented. Pt states she is homeless and has not been out of the weather recently. Pt lung sounds are clear bilaterally. [facility] ED PROV NOTEon 07-10-2023 ED PROV NOTE HNO ID: [id number] Author: Josefina Everett APRN.STACEY Service: Emergency Medicine Author Type: Nurse Practitioner Type: ED Provider Notes Filed: 07/10/2023 10:36 PM Note Text: ED Provider Note Patient Name: Judson De La Cruz : 1980 SERVICE DATE: 07/10/23 History Patient presents with: Cough: Patient states she is homeless and has a cough from being outside in the cold. Judson is a 43 year old female who presents to the ER for a cough, sore throat, and chest tightness with breathing. She states she was out in the cold and her symptoms developed over the last 24 hours. She denies fever and has not taken any medication for her symptoms. Her cough is not productive and she does not have nasal congestion or drainage. She is homeless and is being seen along with her brother whom is also homeless. 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 PAST MEDICAL HISTORY Diagnosis Date Depression Diabetes mellitus type II, uncontrolled 1998 Dysmetabolic syndrome Gallstones Hyperlipidemia Hypothyroid 1998 Irregular menses Obesity Polycystic disease, ovaries PAST SURGICAL HISTORY Procedure Laterality Date CHOLECYSTECTOMY ORAL SURGERY PROCEDURE all teeth pulled wisdom teeth FAMILY HISTORY Problem Relation Age of Onset Cancer Mother DC age 65 Coronary Artery Disease Mother other (kidney failure) Mother other (SLE) Mother None Father None Brother None Brother Social History Tobacco Use Smoking status: Former Packs/day: 0.50 Years: 5.00 Additional pack years: 0.00 Total pack years: 2.50 Types: Cigarettes Smokeless tobacco: Never Substance and Sexual Activity Alcohol use: No Drug use: No Sexual activity: Yes Partners: Male control/protection: Condom ALLERGIES Allergen Reactions Adhesive Tape-Silic* Rash Cephalexin Rash Doxycycline Rash, Hives, Other: See Comments Patient c/o dizziness, rash and then hives Sulfamethoxazole GI Upset Vicodin [Hydrocodon* Review of Systems Constitutional: Positive for activity change and fatigue. Negative for appetite change, chills, diaphoresis, fever and unexpected weight change. HENT: Positive for sore throat. Negative for congestion, dental problem, drooling, ear discharge, ear pain, facial swelling, hearing loss, mouth sores, nosebleeds, postnasal drip, rhinorrhea, sinus pressure, sinus pain, sneezing, tinnitus, trouble swallowing and voice change. Eyes: Negative. Respiratory: Positive for cough and chest tightness. Negative for apnea, choking, shortness of breath, wheezing and stridor. Cardiovascular: Negative for chest pain, palpitations and leg swelling. Gastrointestinal: Negative. Endocrine: Negative. Genitourinary: Negative. Musculoskeletal: Negative. Skin: Negative. Allergic/Immunologic: Negative for environmental allergies, food allergies and immunocompromised state. Neurological: Negative. Hematological: Negative. Psychiatric/Behavioral: Negative. Physical Exam Vitals [07/10/238] BP Pulse Temp Temp src Resp SpO2 Weight Height 149/87 (!) 92 36.5 ?C (97.7 ?F) -- 18 99 % 93.3 kg (205 lb 11 oz) 1.422 m (4' 8) Physical Exam Vitals and nursing note reviewed. Constitutional: General: She is not in acute distress. Appearance: She is obese. She is not ill-appearing, toxic-appearing or diaphoretic. HENT: Head: Normocephalic and atraumatic. Right Ear: Tympanic membrane, ear canal and external ear normal. There is no impacted cerumen. Left Ear: Tympanic membrane, ear canal and external ear normal. There is no impacted cerumen. Nose: Nose normal. No congestion or rhinorrhea. Mouth/Throat: Mouth: Mucous membranes are moist. Pharynx: Oropharynx is clear. No oropharyngeal exudate or posterior oropharyngeal erythema. Eyes: General: No scleral icterus. Right eye: No discharge. Left eye: No discharge. Extraocular Movements: Extraocular movements intact. Conjunctiva/sclera: Conjunctivae normal. Pupils: Pupils are equal, round, and reactive to light. Neck: Vascular: No carotid bruit. Cardiovascular: Rate and Rhythm: Normal rate and regular rhythm. Pulses: Normal pulses. Heart sounds: Normal heart sounds. No murmur heard. No friction rub. No gallop. Pulmonary: Effort: Pulmonary effort is normal. No respiratory distress. Breath sounds: Normal breath sounds. No stridor. No wheezing, rhonchi or rales. Chest: Chest wall: Tenderness present. Abdominal: General: Abdomen is flat. Bowel sounds are normal. There is no distension. Palpations: Abdomen is soft. There is no mass. Tenderness: There is no abdominal tenderness. There is no guarding or rebound. Hernia: No hernia is present. Musculoskeletal: General: No swelling, tenderness, deformity or signs of injury. Normal range of motion. Cervical back: Normal range of motion and neck supple. No rigidity or tenderness. Right lowe (more content not included)... Normal [facility] XR CHEST 1V FRONTAL PORTon 1 09-09-2022 XR CHEST 1V FRONTAL PORT * * *Final Report* * * DATE OF EXAM: Jul 10 2023 10:10PM UDX [id number] - XR CHEST 1V FRONTAL PORT / PROCEDURE REASON: Shortness of breath * * * * Physician Interpretation * * * * EXAMINATION: ONE XRAY VIEW OF THE CHEST07/10/2023 10:19 pm XR Chest portable upright COMPARISON: None HISTORY: ORDERING SYSTEM PROVIDED HISTORY: TECHNOLOGIST PROVIDED HISTORY: STATED HISTORY: PT C/O URI, COUGHING, CHILLS, MID CHEST PAIN UP INTO THROAT X 2 DAYS. Reason for Exam: Shortness of breath, FINDINGS: There is shallow inspiration with resulting hypoventilatory changes and crowding of lung markings. No suspicious nodule, acute infiltrate, consolidation,mass, pneumothorax, pleural fluid, or vascular congestion is seen. Heart size and mediastinal contours are within normal limits for age and projection. No acute skeletal abnormality. IMPRESSION: No acute cardiopulmonary process. Electronically signed By Alyce Parsons MD 07/10/2023 10:24:32 PM EST Workstation ID : [id number] Hot Man: [id number] Transcribe Date/Time: Jul 10 2023 10:24P Dictated by : ALYCE PARSONS MD This examination was interpreted and the report reviewed and electronically signed by: ALYCE PARSONS MD on Jul 10 2023 10:24PM EST [id number] [facility] ED NOTEon 07-01-2023 ED NOTE HNO ID: [id number] Author: Yarely Cordova RN Service: ? Author Type: Registered Nurse Type: ED Notes Filed: 07/01/2023 5:37 AM Note Text: Pt discharged at this time. Pt AANDOx4, respirations easy and unlabored, no signs of distress noted. VSS and updated. Pt provided with discharge/medication instructions and gave verbal understanding. Pt to home at this time. [facility] ED NOTE HNO ID: [id number] Author: Jodi John RN Service: ? Author Type: Registered Nurse Type: ED Notes Filed: 07/01/2023 12:13 AM Note Text: PT STATED PAIN TO THE RT ELBOW AND LT WRIST X2WKS AND PT THEN SLIPPED IN THE TUB 2 DAYS AGO AND NOW RT KNEE PAIN [facility] ED PROV NOTEon 07-01-2023 ED PROV NOTE HNO ID: [id number] Author: Teressa Merchant, Service: ? Author Type: Physician Type: ED Provider Notes Filed: 07/01/2023 5:21 AM Note Text: ED Provider Note Patient Name: Judson De La Cruz : 1980 SERVICE DATE: 06/30/23 History No chief complaint on file. HPI This is a pleasant 43-year-old female who presents to the emergency department with complaint of right leg strain that happened 2 days ago when she was trying to get into a bathtub. It sounds like she did the splits over the side of the tub straining her right medial thigh as well as her right knee. She did not actually fall. She is also been carrying heavy bags. So she thinks she strained her elbow and her left wrist. She is presently homeless. She and her and brother just got evicted and so she has been carrying a lot of heavy bags around. She mentioned to the nurse in triage that when they got kicked out of the residence where they were staying couple of days ago that for a brief time she thought of harming herself however is not suicidal or homicidal at this time. Just out of money and resources. PAST MEDICAL HISTORY Diagnosis Date - Depression - Diabetes mellitus type II, uncontrolled 1998 - Dysmetabolic syndrome - Gallstones - Hyperlipidemia - Hypothyroid 1998 - Irregular menses - Obesity - Polycystic disease, ovaries PAST SURGICAL HISTORY Procedure Laterality Date - CHOLECYSTECTOMY - ORAL SURGERY PROCEDURE all teeth pulled - wisdom teeth FAMILY HISTORY Problem Relation Age of Onset - Cancer Mother DC age 65 - Coronary Artery Disease Mother - other (kidney failure) Mother - other (SLE) Mother - None Father - None Brother - None Brother Social History Tobacco Use - Smoking status: Former Packs/day: 0.50 Years: 5.00 Additional pack years: 0.00 Total pack years: 2.50 Types: Cigarettes - Smokeless tobacco: Never Substance and Sexual Activity - Alcohol use: No - Drug use: No - Sexual activity: Yes Partners: Male control/protection: Condom ALLERGIES Allergen Reactions - Adhesive Tape-Silic* Rash - Cephalexin Rash - Doxycycline Rash, Hives, Other: See Comments Patient c/o dizziness, rash and then hives - Sulfamethoxazole GI Upset - Vicodin [Hydrocodon* Review of Systems All other systems reviewed and are negative. Physical Exam Vitals [07/01/23 0013] BP Pulse Temp Temp src Resp SpO2 Weight Height 117/83 80 36.7 ?C (98 ?F) Oral 20 97 % 94.6 kg (208 lb 8.9 oz) 1.435 m (4' 8.5) Physical Exam Vitals reviewed. Constitutional: General: She is not in acute distress. Appearance: Normal appearance. She is obese. She is not ill-appearing. HENT: Head: Normocephalic and atraumatic. Nose: Nose normal. Mouth/Throat: Mouth: Mucous membranes are moist. Pharynx: Oropharynx is clear. Eyes: Extraocular Movements: Extraocular movements intact. Conjunctiva/sclera: Conjunctivae normal. Cardiovascular: Rate and Rhythm: Normal rate and regular rhythm. Pulses: Normal pulses. Heart sounds: Normal heart sounds. Pulmonary: Effort: Pulmonary effort is normal. Breath sounds: Normal breath sounds. Abdominal: General: Bowel sounds are normal. Palpations: Abdomen is soft. Musculoskeletal: Cervical back: Normal range of motion and neck supple. Comments: Patient has mild discomfort at the right elbow with range of motion, specifically at the lateral epicondyle. She can fully flex and extend this elbow. Soft tissues above and below are supple. She has no tenderness elsewhere in this upper extremity. She has equal peripheral pulses in upper and lower extremities. She has mild discomfort at the radial aspect of her left wrist exacerbated by lateral rotation of the hand. No discomfort with flexion extension of the wrist. Soft tissue supple on this upper extremity as well. No signs of cellulitis in all 4 extremities. No lesions in the skin. Patient has no other bony tenderness with range of motion or palpation in the left upper extremity. As for the lower extremities, the patient only complains of pain vaguely at her right knee. Somewhat medially over the distal quadriceps and also proximally over the adductors of the thigh. Soft tissues are supple. No signs of any lesions in the skin. As for this knee, patient has no instability with drawer and Stephen testing, with valgus or varus strain. Patient has equal lower extremity pulses, sensation. Ambulatory without difficulty. Calves supple and nontender. Pelvis is stable to rock and tilt and nontender. Skin: General: Skin is warm and dry. Capillary Refill: Capillary refill takes less than 2 seconds. Neurological: General: No focal deficit present. Mental Status: She is alert and oriented to person, place, and time. Psychiatric: Mood and Affect: Mood normal. Behavior: Behavior normal. Thought Content: Thought content normal. Yen (more content not included)... [facility] XR ELBOW 2V AP/LAT RTon 06-21 XR ELBOW 2V AP/LAT RT * * *Final Report* * * DATE OF EXAM: Jul 01 2023 2:29AM UDX [id number] - XR ELBOW 2V AP/LAT RT / PROCEDURE REASON: Elbow trauma, no prior imaging * * * * Physician Interpretation * * * * EXAMINATION: TWO XRAY VIEWS OF THE RIGHT ELBOW 07/01/2023 2:29 am COMPARISON: None. HISTORY: ORDERING SYSTEM PROVIDED HISTORY: TECHNOLOGIST PROVIDED HISTORY: STATED HISTORY: Pt states pain to posterior RT elbow that radiates up RT humerus after falling in the shower today. Reason for Exam: Elbow trauma, no prior imaging IMPRESSION: No acute fracture or dislocation. No large joint effusion. Electronically signed By Bong Soto MD 07/01/2023 2:58:43 AM EST Workstation ID : [id number] Hot Man: [facility] Transcribe Date/Time: Jul 01 2023 2:58A Dictated by : BONG SOTO, This examination was interpreted and the report reviewed and electronically signed by: BONG SOTO, on Jul 01 2023 2:58AM EST [id number] [facility] XR KNEE 4V AP/LAT/OBLS RTon 07-01-2023 XR KNEE 4V AP/LAT/OBLS RT * * *Final Report* * * DATE OF EXAM: Jul 01 2023 2:29AM UDX [id number] - XR KNEE 4V AP/LAT/OBLS RT / PROCEDURE REASON: Trauma * * * * Physician Interpretation * * * * EXAMINATION: FOUR XRAY VIEWS OF THE RIGHT KNEE 07/01/2023 2:29 am COMPARISON: None. HISTORY: ORDERING SYSTEM PROVIDED HISTORY: TECHNOLOGIST PROVIDED HISTORY: STATED HISTORY: Pain to posterior lateral RT knee after falling in the shower today. Reason for Exam: Trauma FINDINGS: Degenerative changes of the knee are noted which are mild. No large joint effusion. No fracture or dislocation. IMPRESSION: No acute findings. Electronically signed By Bong Soto MD 07/01/2023 3:00:05 AM EST Workstation ID : [id number] Hot Man: [facility] Transcribe Date/Time: Jul 01 2023 3:00A Dictated by : BONG SOTO, This examination was interpreted and the report reviewed and electronically signed by: BONG SOTO, on Jul 01 2023 3:00AM EST [id number] [facility] XR WRIST 3V PA/LAT/OBL LTon 07-01-2023 XR WRIST 3V PA/LAT/OBL LT * * *Final Report* * * DATE OF EXAM: Jul 01 2023 2:29AM UDX [id number] - XR WRIST 3V PA/LAT/OBL LT / PROCEDURE REASON: Wrist pain * * * * Physician Interpretation * * * * EXAMINATION: THREE OR MORE XRAY VIEWS OF THE LEFT WRIST 07/01/2023 2:29 am COMPARISON: None. HISTORY: ORDERING SYSTEM PROVIDED HISTORY: TECHNOLOGIST PROVIDED HISTORY: STATED HISTORY: Pt states pain to radial LT wrist x couple weeks. Unsure of injury . Reason for Exam: Wrist pain IMPRESSION: No acute fracture or dislocation. No radiopaque foreign body. Minimal soft tissue swelling over the medial aspect of the wrist is noted. Electronically signed By Bong Soto MD 07/01/2023 2:59:31 AM EST Workstation ID : [id number] Hot Man: [facility] Transcribe Date/Time: Jul 01 2023 2:59A Dictated by : BONG SOTO, This examination was interpreted and the report reviewed and electronically signed by: BONG SOTO, on Jul 01 2023 2:59AM EST [id number] [facility] IO HCG, Urine Test on 01-26-2023 HCG ( test) Ql (U) Negative MG-OB[facility]N [facility] DO Work Phone: No Panel Informationon 01-26 MG-OBGYN [facility] B DO Work Phone: EXTRACORPOREAL CIRCULATION SPECIALIST - Procedure Visiton 0 01-26-2023 EXTRACORPOREAL CIRCULATION SPECIALIST - Procedure Visit Diagnoses/Problems DUB (dysfunctional uterine bleeding) (626.8) (N93.8) Orders DUB (dysfunctional uterine bleeding) IO HCG, Urine Test; Status:Resulted - Requires Verification,Retrospecti ve Authorization; Done: 26Jan2023 02:17PM Provider Impressions COLP done , ECC and bx collected. will call w results Judson Hatfield MD Chief Complaint Colposcopy for pap done on 12/16/22 ASC-H HPV- History of Present IllnessHere for COLP w PAp w ASCUS - H . HPV neg. Prior PAp neg. Not sexually active in years. 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) Rash (782.1) (R21) Right ankle pain (719.47) (M25.571) Right ankle sprain (845.00) (S93.401A) Right hamstring muscle strain, sequela (905.7) (S76.311S) Screening mammogram, encounter for (V76.12) (Z12.31) Shingles rash (053.9) (B02.9) Somatic dysfunction of cervical region (739.1) (M99.01) Somatic dysfunction of head region (739.0) (M99.00) Tension headache (307.81) (G44.209) Trapezius muscle spasm (728.85) (M62.838) Vaginal odor (625.8) (N89.8) Visit for screening mammogram (V76.12) (Z12.31) Well woman exam with routine gynecological exam (V72.31) (Z01.419) Past Medical History Problems History of bronchitis (V12.69) (Z87.09) Resolved Date: 08 Jul 2015 History of screening mammography (V15.89) (Z92.89) Resolved Date: 16 Dec 2022 History of Infected blister (919.3) (T14.8XXA,L08.9) Resolved Date: 08 Jul 2015 History of Well woman exam with routine gynecological exam (V72.31) (Z01.419) Resolved Date: 16 Dec 2022 Surgical History Problems History of Cholecystotomy Family History Mother Family history of Family history of lung cancer (V16.1) (Z80.1) Social History Problems Caffeine use (V49.89) (Z78.9) Former smoker (V15.82) (Z87.891) Former tobacco use (V15.82) (Z87.891) Occasional alcohol use Single Allergies Medication hydrocodone Updated By: Laureen Al; 05/14/2019 3:18:17 PM Feels sick Vicodin TABS Updated By: Laureen Al; 05/14/2019 3:18:17 PM Feels sick Current Meds Medication NameInstruction medroxyPROGESTERone Acetate 10 MG Oral TabletTAKE 1 TABLET DAILY FOR 10 DAYS EACH MONTH. metFORMIN HCl - 500 MG Oral Tablet Synthroid 100 MCG Oral Tablet Vitals Vital Signs Recorded: 26Jan2023 02:32PM [id number] Snjgjogco12 Height4 ft 8 in Wbqnwy117 lb 8 oz BMI Jdwhicvvqj81.28 kg/m2 BSA Calculated1.77 Tobacco Useb) No PHQ-2 #1. Over the last 2 weeks have you felt down, depressed or hopeless? (If yes, answer PHQ-9 below)No PHQ-2 #2. Over the last 2 weeks have you felt little interest or pleasure in doing things? (If yes, answer PHQ-9 below)No Falls Screening (Age 18+)a) No falls within the last year Pain Scale0 Results/Data IO HCG, Urine [id number] 02:17PMJudson Hatfield Test NameResultFlagReference IO Urine hCGNegative Procedure Bedside Time Out Verification Today's Date: 01/26/2023. I attest that this time out verification took place prior to the procedure. Procedure: Colposcopy RN/LEAD HOUSEKEEPER/MA:CARMELO Riojas Provider: Dr. Hatfield. Verified By: Provider. Prior to the start of the procedure a time out was taken and the following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 Yes RADIOLOGY DEPARTMENT: MR; Exam(s) Completed: Lower MSK: Knee, left PERIPHERAL IV DATA: Not applicable SIGNED BY: Pinky Dominguez, RT(R), Corazon Vera RT August 26, 2021 11:02 AM [facility] MRI KNEE WO IVCON LTon 08-26 MRI KNEE WO IVCON LT * * *Final Report* * * DATE OF EXAM: Aug 26 2021 11:32AM [facility] 0212 - MRI KNEE WO IVCON LT / PROCEDURE REASON: multiple diagnoses * * * * Physician Interpretation * * * * EXAMINATION: MRI LEFT KNEE WITHOUT CONTRAST CLINICAL HISTORY: Soft tissue injury TECHNIQUE: Routine non-contrast MRI of the knee MQ: [id number] COMPARISON: None RESULT: MENISCI: Medial Meniscus: Posterior root avulsion Lateral Meniscus: Intact. LIGAMENTS: ACL: Intact PCL: Intact MCL: Intact LCL Complex: Intact CARTILAGE: Medial Femoral Condyle: Moderate sized area(s) of predominantly low grade (less than 50% thickness) cartilage loss and or fissuring with smaller area(s) of high grade (greater than 50% thickness) cartilage loss and or fissuring Medial Tibial Plateau: Moderate sized area(s) of low grade (less than 50% thickness) partial thickness cartilage loss and or fissuring Lateral Femoral Condyle: Normal Lateral Tibial Plateau: Cartilage signal abnormality Patella: Small area(s) of high grade (greater than 50% thickness) partial thickness cartilage loss and or fissuring Trochlea: Small area(s) of high grade (greater than 50% thickness) partial thickness cartilage loss and or fissuring TENDONS: The distal quadriceps and patellar tendons are intact. The popliteus tendon is intact. BONES AND MARROW: Hematopoietic marrow regeneration noted without focal lesion MUSCLES: Muscle bulk and signal intensity are normal. JOINT FLUID AND SYNOVIUM: Small joint effusion. No synovitis. No Quintanilla's cyst. Moderate prepatellar bursal swelling OTHER: No other significant abnormality identified. Localizer images: IMPRESSION: 1. VERTICAL LONGITUDINAL TEAR POSTERIOR ROOT ATTACHMENT MEDIAL MENISCUS. NO SIGNIFICANT EXTRUSION OF THE BODY SEGMENT. 2. MODERATE CHONDRAL SIGNAL ABNORMALITY IN THE WEIGHTBEARING SURFACE OF THE MEDIAL COMPARTMENT WELL SMALL FOCAL CHONDRAL FISSURING IN THE MEDIAL ASPECT OF THE PATELLOFEMORAL COMPARTMENT 3. INCREASED HEMATOPOIETIC MARROW NOTED, TYPICALLY SEEN WITH INCREASED METABOLIC DEMAND Hot Man: VINNY Transcribe Date/Time: Aug 26 2021 1:39P Dictated by : ABRAHAM POOLE MD This examination was interpreted and the report reviewed and electronically signed by: ABRAHAM POOLE MD on Aug 26 2021 1:43PM EST [id number] Normal [facility] XR KNEE GENERAL 4V AP BOTH/P A BOTH/LAT/MERC LTon 06-24-2021 [facility] Blood Pressure Cuff Sizeon 0 05-07-2021 Blood Pressure Cuff Size Large [facility] 1200 Work Phone: Laboratory - Urinalysison Yeast LM Ql (Urine sed) ABSENT [facility] 1200 Work Phone: No Panel Informationon 05-07 ABSENT [facility] 1200 Work Phone: 1 1 [facility] 1200 Work Phone: Comment on above: Interpretation of th e Bandar Score0-3.....Normal vaginal microbiota4-6.....Intermediate results7-10....Bacterial vaginosis Imm/Pathon 05-14-2019 Cytology report Cyto stain.thin prep Doc (Cvx/Vag) [facility] [place] [address] M Work Phone: Otheron 05-14-2019 60 Date of Procedure: 05/14/2019 Pathologist: [facility], CytologyDate Reported: 05/20/2019Date Received: 05/14/2019Submitting Physician: OVIDIO MORGAN CNM FINAL CYTOLOGICAL INTERPRETATIONA. THINPREP PAP CERVICAL: Specimen adequacy: SATISFACTORY FOR EVALUATION. Quality Indicator: Endocervical/transformat ion zone component is present. General Categorization: NEGATIVE FOR INTRAEPITHELIAL LESION OR MALIGNANCY. HIGH RISK HPV TEST RESULT: HPV GENOTYPE 16 NEGATIVE HPV GENOTYPE 18 NEGATIVE HPV GENOTYPE OTHER NEGATIVE Reference Range: Negative Testing for high-risk (HR) type of human papilloma virus (HPV) is performed bythe Jatin raciel HPV Test. The raciel HPV Test is a qualitative polymerase chainreaction that amplifies DNA of HPV16, HPV18 and 12 other high-risk HPV types(31, 33, 35, 39, 45, 51, 52, 56, 58, 59, 66, and 68) associated with cervicalcancer and its precursor lesions. A positive result indicates the presence ofHPV DNA due to one or more of the 14 genotypes: 16, 18, 31, 33, 35, 39, 45, 51,52, 56, 58, 59, 66, and 68. Negative results indicate HPV DNA concentrationsare undetectable or below the pre-set threshold for detection. False negativeresults may be associated with unoptimized sampling. A negative HR HPV resultdoes not exclude the possibility of future cytologic HSIL or underlying CIN2-3or cancer.This test is approved for cervical specimens by the US Food and DrugAdministration. Results of this test should be interpreted in conjunction withthe patient's Pap test results. Please refer to ASCCP current guidelines forthe use of HPV DNA testing, result interpretation, and patient management. The performance of this test was verified by [facility]. The lab iscertified under the Clinical Laboratory Amendments of 1988 (CLIA 88) asqualified to perform high complexity clinical laboratory testing.This specimen has been analyzed by the Envia SystemsPrep Imaging System ([employer]an automated imaging and review system, which assists the laboratory inevaluating cells on ThinPrep Pap tests. Following automated imaging, selectedfields from every slide were reviewed by a enterprise services manager and/or pathologist.Electronical ly Signed Out By [facility],Cytology//TFP/ PWM By the signature on this report, the individual or group listed as making theFinal Interpretation/Diagnosis certifies that they have reviewed this case.Educational Note:Cervical cytology is a screening procedure primarily for squamous cancers andprecursors and has associated false-negative and false-positive results asevidenced by published data. Your patient's test should be interpreted in thiscontext, together with patient's history and clinical findings. Regularsampling and follow-up of unexplained clinical signs and symptoms arerecommended to minimize false negative results. Clinical HistoryDate of Last Menstrual Period: Sept Clinical Conditions:HPV Testing for All Interpretations - Include HPV Genotype Source of SpecimenA: THINPREP PAP CERVICAL [id number] Dorina Luong [id number] M Work Phone: ED Provider Reporton 019 Protein mass conc [id number] [place] [id number] Name: JUDSON DE LA CRUZ : [birth year]Acct #: [id number] Unit #: [id number] ER Arrival Date: 08/28/18 ER Physician: Isidro Powell DOHistory of Present IllnessTime Seen by [id number] of InformationPATIENTTriage complaintPOSS ALLERGIC REACTION. RASH.BENADRYL TAKEN PRIOR TO ARRIVALHistory of Present IllnessHPI:This is a 38-year-old female with a history of Hashimotos thyroiditis, Type IIdiabetes presents to emergency department for evaluation of pruritic rash that startedthis morning. Patient endorses diffuse pruritus all over back chest abdomen arms and legs.Noted this this morning at approximately 0 6:30. She did take 1 Benadryl tablet with someimprovement of symptoms. . Patient attributes this rash to shampoo. She reports she hasbeen using children's hypoallergenic shampoo. She's been using this for a while withoutincident. She denies any other changes in medication environmental exposures or dietaryexposures. She denies any shortness of breath she denies any difficulty managingsecretions. Denies chest pain denies fevers chills nausea vomiting. She denies anyprolonged bleeding or easy bruising.ROS:All systems are negative except as noted/markedPMH: Omid thyroiditis, type II diabetesPSH: Reviewed and noncontributory to today's visitFamily HX: Reviewed and noncontributory to today's visit.SOC:Smoke: NoDrink: NoDrugs: NoPast Medical HistoryPast Medical HistoryReports Diabetic, Denies Asthma, Denies GlaucomaPast Med Hx con'tReports Thyroid DisorderSurgical HistoryDenies PacemakerPast Social HistorySmoking Status:FORMER SMOKERDrug UseNOReview of SystemsReview of SystemsAllergiesCoded Allergies:ACETAMINOPHEN (From VICODIN) (03/13/16)HYDROCODONE (From VICODIN) (03/13/16)PT CAN TAKE OTHER OPIATESAllergies ReviewedYesConstitutiona lDenies Fever, Denies Chills, Denies WeaknessEENTDenies: Vision Change, Vision Problems.CVS/PulmonaryDe nies Chest pain, Denies Shortness of breath, Denies CoughGI/GUDenies: Abdominal Pain, Nausea, Vomiting, Diarrhea.MS/SKIN/LYMPHRe ports Rash, Denies Extremity Pain, Denies Joint PainPhysical ExamVital SignsVital Signs ReviewedYesVital SignsVital SignsDate Time Temp Pulse Resp B/P B/P Pulse O2 O2 Flow DeG4Vqxe Ox Delivery Rate08 0839 36.5 75 18 144/76 100CommentsAdditionalGen . appearance: Patient is well-hydrated well-nourished female restingcomfortably in the bed in no acute distress. Patient is AANDO 3.HEENT: Head is normocephalic atraumatic. External auditory exam is unremarkable. Hearingis grossly normal. Extraocular movements are intact grossly. Pupils equal, round,andreactive to light. Oral mucosa moist.Neck: Neck is supple, nontender, no lymphadenopathy, masses, or meningismus.Heart: Regular rate and rhythm. No murmurs rubs or gallops noted. No tachycardia, noirregular pulse.Lungs: Lungs are clear to auscultation without rales or wheezes rhonchi.Patient is breathing comfortably in the room in no acute distress. There is no tachypnea.There are no retractions.There is no accessory muscle use.Abdomen: Abdomen is soft, nontender, nondistended. There is no rebound tenderness, noguarding. There is no fluid wave shift. Negative McBurney point tenderness. NegativeMurphy signMuskuloskeletal: Range of motion is intact. No significant evidence of joint erythema.Muscles appear to be well-developed without evidence of atrophy.Neuro: Patient is alert. Speech clear. Gait is steady.Skin: Patient has flat papular rash that she reports intensely pruritic. This rash isdistributed about arms abdomen chest and flank legs. There is no tunneling or burrowingmarks. It is not vesicular does not follow dermatomal patterns. Non-petechial. This doesblanch with pressure. There are superficial excoriation graf on the palmar aspects of thepatient's forearms.ED Sepsis Evaluation SJScreening Criteria*At least 2 required to document SIRSTissue Assmt AFTER Fluid Start*Sepsis Reevaluation Performed after Fluid Bolus StartMedical Decision MakingCourseCoursePatien t was seen and evaluated. Patient has papular pruritic rash. There is no illinvolvement vital signs are stable. Patient started herself on Benadryl with moderateimprovement. Patient was given prednisone and Pepcid and some additional Benadryl in theED. She was observed with no worsening of the rash moderate improvement. Patient will bedischarged to follow-up with primary care physician also advised that if necessary she maycontact a turf farm worker for further investigation. She was given referral information fordermatologist as well.Patient was instructed that if symptoms do not improve, worsen, or new symptoms arisepatient is to return to the emergency department immediately for further evaluation.Otherwise patient is to follow-up with primary care physician. Patient is aware of thisand agreeable to treatment plan.Patient's with noted hypertension are counseled about the dangers of prolongedhypertension. Advised to monitor blood pressure. Recommended to make a follow-up appointwith PCP within the next week for close follow-up.Notes are completed using dictation software.Occasionally jig filler errors occur.Notes are reviewed and attempts to correct these. Transcriptions are made. Occasionallythey persist.Medications OrderedCurrent MedicationsSig/Ashlee Start time LastMedication Dose Route Stop Time Status AdminDiphenhydramine HCl 50 MG ER ONE 08/28 899 DC 08/28PO 08/28 900 0852Famotidine 40 MG ER ONE 08/28 899 DC 08/28PO 08/28 900 0851Prednisone 40 MG ER ONE 08/28 899 DC 08/28PO 08/28 900 0851Disposition DecisionDischargeDisposi tion Date08/28/18Decision [id number] AttestationDid you see this patient with a resident?( ) No( ) Yes. I personally saw and examined the patient. I have reviewed and agree with theresidents findings, including all diagnostic interpretations and treatment plans aswritten unless documented otherwise in my personal note. I was present for the keyportions of any procedures performed and the inclusive time noted for any critical carestatement.[facility] linical ImpressionClinical ImpressionPrimary Impression:Pruritic erythematous rashReport Date 08/28/18Electronically Signed Esig Date Esig TimeSLester reynolds 08/28/18 0939SpIsidro schmidt DO Normal [facility] CBC With Platelet and Differ entialon 04-11-2018 Basophils Auto #/vol (Bld) 0.0 10*3/uL Normal 0.0-0.2 [facility] Basophils/100 WBC Auto (Bld) 0.4 % Normal [facility] Eosinophils Auto #/vol (Bld) 0.2 10*3/uL Normal 0.0-0.7 [facility] Eosinophils/100 WBC Auto (Bld) 3.3 % Normal [facility] Erythrocyte distribution width Auto Ratio (RBC) 14.3 % Normal 11.5-14.5 [facility] Hematocrit Auto Volume Fraction (Bld) 42.5 % Normal 37.0-47.0 [facility] Hemoglobin mass conc (Bld) 14.1 g/dL Normal 12.0-16.0 [facility] Lymphocytes Auto #/vol (Bld) 1.8 10*3/uL Normal 1.0-4.8 [facility] Lymphocytes/100 WBC Auto (Bld) 24.3 % Normal [facility] MCH Auto Entitic mass (RBC) 31.6 pg Critically high 27.0-31.3 [facility] MCHC Auto mass conc (RBC) 33.3 % Normal 33.0-37.0 [facility] MCV Auto Entitic volume (RBC) 94.9 fL Normal 82.0-100.0 [facility] Monocytes Auto #/vol (Bld) 0.4 10*3/uL Normal 0.2-0.8 [facility] Monocytes/100 WBC Auto (Bld) 6.0 % Normal [facility] Neutrophils Auto #/vol (Bld) 5.0 10*3/uL Normal 1.4-6.5 [facility] Neutrophils/100 WBC Auto (Bld) 66.0 % Normal [facility] Platelets Auto #/vol (Bld) 308 10*3/uL Normal 130-400 [facility] RBC Auto #/vol (Bld) 4.48 10*6/uL Normal 4.20-5.40 [facility] WBC Auto #/vol (Bld) 7.5 10*3/uL Normal 4.8-10.8 [facility] Comprehensive Metabolic Pane melvi 04-11-2018 Albumin mass conc 4.3 g/dL Normal 3.9-4.9 [facility] ALP enzyme act/vol 57 U/L Normal 40-130 [facility] ALT enzyme act/vol 19 U/L Normal 0-33 [facility] Anion gap 3 molar conc 15 mmol/L Critically high 7-13 [facility] AST enzyme act/vol 17 U/L Normal 0-35 [facility] Bilirubin mass conc 0.4 mg/dL Normal 0.0-1.2 [facility] Calcium mass conc 9.3 mg/dL Normal 8.6-10.2 [facility] Chloride molar conc 101 mmol/L Normal 98-107 [facility] CO2 molar conc 24 mmol/L Normal 22-29 [facility] Creatinine mass conc 0.67 mg/dL Normal 0.50-0.90 [facility] GFR/1.73 sq M predicted among blacks MDRD vol rate/area (S/P/Bld) mL/min/{1.73_m2} Normal >60 [facility] Comment on above: Result Comment: >60 mL/min/1.73m2 EGFR, calc. for ages 18 and older using theMDRD formula (not corrected for weight), is valid for stablerenal function. GFR/1.73 sq M.predicted MDRD vol rate/area mL/min/{1.73_m2} Normal >60 [facility] Comment on above: Result Comment: >60 mL/min/1.73m2 EGFR, calc. for ages 18 and older using theMDRD formula (not corrected for weight), is valid for stablerenal function. Globulin Calculated mass conc (S) 2.2 g/dL Low 2.3-3.5 [facility] Glucose mass conc 92 mg/dL Normal 74-109 [facility] Potassium molar conc 3.6 mmol/L Normal 3.5-5.1 [facility] Protein mass conc 6.5 g/dL Normal 6.4-8.1 [facility] Sodium molar conc 140 mmol/L Normal 132-144 [facility] Urea nitrogen mass conc 9 mg/dL Normal 6-20 [facility] Hemoglobin A1con 04-11-2018 Hemoglobin A1c/Hemoglobin.total mass fraction (Bld) 5.1 % Normal 4.8-5.9 [facility] Lipid Panelon 04-11-2018 Cholesterol in HDL mass conc 40 mg/dL Normal 40-59 [facility] Comment on above: Result Comment: ATP III HDL Cholestrol Classification is low.Expected Values:Males: >55 = No Risk 35-55 = Moderate Risk <35 = High RiskFemales: >65 = No Risk 45-65 = Moderate Risk <45 = High RiskNCEP Guidelines: Third Report December 2000>59 = negative risk factor for CHD<40 = major risk factor for CHD Cholesterol in LDL mass conc 129 mg/dL Normal 0-129 [facility] Comment on above: Result Comment: ATP III LDL Classification is Near Optimal. Cholesterol mass conc 202 mg/dL Critically high 0-199 [facility] Comment on above: Result Comment: ATP III Cholesterol Classification is Borderline High. Triglyceride mass conc 167 mg/dL Normal 0-200 [facility] Comment on above: Result Comment: ATP III Triglycerides Classification is Borderline High. Thyroxine Freeon 04-11-2018 Thyroxine Free 1.87 ng/dL Critically high 0.93-1.70 [facility] UR Microalbumin/Creatinine R atio Randomon 04-11-2018 Microalbumin/creatini ne Ratio see below Normal 0.0-30.0 [facility] Comment on above: Result Comment: - UR Microalbumin concentration is less than 1.2 mg/dL.- Unable to calculate Microalbumin/Creatinine Ratio without a Microalbumin concentration. UR Creatinine Random 77.8 mg/dL Normal Not Establ [facility] UR Microalbumin Random <1.20 Normal Not Establ [facility] VITAMIN Don 04-11-2018 VITAMIN D 21.4 ng/mL Low 30.0-100.0 [facility] Comment on above: Result Comment: (20- 30 ng/mL) InsufficiencyThis assay accurately quantifies the sum of vitamin D3, 25-Hydroxy andvitamin D2, 25-Hyroxy. ED Provider Reporton 018 Protein mass conc [id number] [place], [place] [address]Vcrfytu Name: JUDSON DE LA CRUZ : 78Acct #: [id number] Unit #: [id number] ER Arrival Date: 03/18/18 ER Physician: José Miguel Vásquez DOHistory of Present IllnessTime Seen by [id number] of InformationPATIENTTriage complaintRECTAL PAIN, HEMORRHOIDSHistory of Present [id number] female presenting with hemorrhoids. Patient states that 2 days ago, she'snoticed pain in her anus. After palpating down below, she felt a large tender hemorrhoid.Patient has since been applying Preparation H cream daily, but continues to have pain. Shestates the pain is very severe and [place]. She's had a history of hemorrhoids frequently inthe past, but the pain is never been this bad. Patient has not had any bloody stool, bowelincontinence, abdominal pain, nausea or vomiting, or constipation. No other symptoms atthis timePast Medical History: Diabetes, hypothyroidPast Surgical History: CholecystectomyFamily History: reviewed and not contributorySocial history: denies smoking, alcohol use or drug usePast Medical HistoryPast Medical HistoryReports Diabetic, Denies Asthma, Denies GlaucomaPast Med Hx con'tReports Thyroid DisorderSurgical HistoryDenies PacemakerPast Social HistorySmoking Status:FORMER SMOKERTobacco UseCIGARETTESQuit:ANNIA RAMOS USES TOBACCODrug UseNOReview of SystemsReview of SystemsAllergiesCoded Allergies:ACETAMINOPHEN (From VICODIN) (03/13/16)HYDROCODONE (From VICODIN) (03/13/16)PT CAN TAKE OTHER OPIATESAllergies ReviewedYesAdditional CommentsUnless otherwise stated in this report the patient's positive and negative responses forreview of systems for constitutional, eyes, ENT, cardiovascular, respiratory,gastrointest inal, neurological, genitourinary, musculoskeletal, and integument systems andrelated systems to the presenting problem are either as stated in the HPI or were notpertinent or were negative for the symptoms and/or complaints related to the presentingmedical problem.Physical ExamVital SignsVital Signs ReviewedYesVital SignsVital SignsDate Time Temp Pulse Resp B/P B/P Pulse O2 O2 Flow [id number] Ox Delivery Rate07/29 1237 36.5 83 17 123/86 99CommentsAdditionalGene ral: Alert, No acute distressSkin: Warm, dry, no pallor noted.Head: Normocephalic, atraumaticNeck: Full ROM, no stiffnessEyes: PERRL, EOMI, pink conjunctiva, white scleraENT: Moist mucus membranesCardiovascular: Regular rate and rhythm, no murmurs, gallups or rubsRespiratory: No respiratory distress, no accessory muscle use, lungs clear to auscultationMusculoskele ricardo:Moves all extremities. no edemaGI: No tenderness to palpation, no masses appreciated. No rebound, guarding, or rigiditynoted.Rectal: 1 non-thrombosed external hemorrhoid present measuring approximately 2 cm. Tender.SHIRA with no internal hemorrhoids, no stool in the vault.Neurological: Normal speech and mentation. No focal neurologic deficitsPsychiatric: CooperativeED Sepsis Evaluation SJScreening Criteria*At least 2 required to document SIRSTissue Assmt AFTER Fluid Start*Sepsis Reevaluation Performed after Fluid Bolus StartMedical Decision [id number] r-old female presenting with hemorrhoid pain. Hemorrhoid is nonthrombosed andappears to have reduced in size according to patient. Let cream was applied here in the EDand patient was given a prescription for Anusol. Discussed with patient outpatientmanagement of symptoms including Epsom salt baths, stool softeners, and use of cream.Patient to follow-up with colorectal surgery. Discussed signs and symptoms that requireimmediate return to the ED. Patient expressed understanding and agreed with plan.Faculty NotePatient presents with pain from hemorrhoid she is treated here with topical creamdischarged home follow up with surgery educated on dietary modifications return to ERsymptoms change or worsen.Did you see this patient with a resident?( ) No( x ) Yes. I personally saw and examined the patient. I have reviewed and agree with theresidents findings, including all diagnostic interpretations and treatment plans aswritten unless documented otherwise in my personal note. I was present for the keyportions of any procedures performed and the inclusive time noted for any critical carestatement.Medication s OrderedCurrent MedicationsSig/Ashlee Start time LastMedication Dose Route Stop Time Status AdminTetracaine/ 0 .STK-MED ONE 03/18 1301 DCEpinephrine/Lidocaine TOPICALTetracaine/ 1.5 ML ER ONE 03/18 1300 DC 03/18Epinephrine/Lidocai ne TOPICAL 03/18 1301 1302Disposition DecisionDischargeDisposi tion Date03/18/18Decision [id number] AttestationDid you see this patient with a resident?( ) No( ) Yes. I personally saw and examined the patient. I have reviewed and agree with theresidents findings, including all diagnostic interpretations and treatment plans aswritten unless documented otherwise in my personal note. I was present for the keyportions of any procedures performed and the inclusive time noted for any critical carestatement.DepartureC linical ImpressionClinical ImpressionPrimary Impression:External hemorrhoids without complicationReport Date 03/18/18Electronically Signed Esig Date Esig TimeYu Ellis RESParestarJosé Miguel DO 03/18/18 1558 Normal [facility] Vital Signs Date Time Vital Sign Value Performing Clinician Facility 04-04-2025 15:59-0400 Body temperature 98.8 [degF] No Primary Care Physician [facility] 04-04-2025 15:59-0400 Diastolic blood pressure 79 mm[Hg] No Primary Care Physician [facility] 04-04-2025 15:59-0400 Heart rate 75 /min No Primary Care Physician [facility] 04-04-2025 15:59-0400 Respiratory rate 18 /min No Primary Care Physician [facility] 04-04-2025 15:59-0400 SaO2% (BldA) [Mass fraction] 100 % No Primary Care Physician [facility] 04-04-2025 15:59-0400 Systolic blood pressure 129 mm[Hg] No Primary Care Physician [facility] 04-04-2025 14:24-0400 Body mass index (BMI) [Ratio] 52.1 kg/m2 No Primary Care Physician [facility] 04-04-2025 14:24-0400 Body weight 105.5 kg No Primary Care Physician [facility] 04-04-2025 13:18-0400 Body height 142.24 cm No Primary Care Physician [facility] 02-19-2025 13:14-0400 Body height 142.24 cm No Primary Care Physician [facility] 02-19-2025 13:14-0400 Body mass index (BMI) [Ratio] 51.7 kg/m2 No Primary Care Physician [facility] 02-19-2025 13:14-0400 Body weight 104.77 kg No Primary Care Physician [facility] 01-31-2025 12:15-0400 Body height 142.24 cm No Primary Care Physician [facility] 01-31-2025 12:15-0400 Body mass index (BMI) [Ratio] 52 kg/m2 No Primary Care Physician [facility] 01-31-2025 12:15-0400 Body temperature 98.2 [degF] No Primary Care Physician [facility] 01-31-2025 12:15-0400 Body weight 105.34 kg No Primary Care Physician [facility] 01-31-2025 12:15-0400 Diastolic blood pressure 76 mm[Hg] No Primary Care Physician [facility] 01-31-2025 12:15-0400 Heart rate 96 /min No Primary Care Physician [facility] 01-31-2025 12:15-0400 Respiratory rate 18 /min No Primary Care Physician [facility] 01-31-2025 12:15-0400 SaO2% (BldA) [Mass fraction] 99 % No Primary Care Physician [facility] 01-31-2025 12:15-0400 Systolic blood pressure 120 mm[Hg] No Primary Care Physician [facility] 12-12-2024 13:09-0400 Body temperature 97.9 [degF] No Primary Care Physician [facility] 12-12-2024 13:09-0400 Diastolic blood pressure 78 mm[Hg] No Primary Care Physician [facility] 12-12-2024 13:09-0400 Heart rate 76 /min No Primary Care Physician [facility] 12-12-2024 13:09-0400 Respiratory rate 18 /min No Primary Care Physician [facility] 12-12-2024 13:09-0400 SaO2% (BldA) [Mass fraction] 99 % No Primary Care Physician [facility] 12-12-2024 13:09-0400 Systolic blood pressure 110 mm[Hg] No Primary Care Physician [facility] 12-12-2024 10:04-0400 Body height 142.24 cm No Primary Care Physician [facility] 12-12-2024 10:04-0400 Body mass index (BMI) [Ratio] 54.1 kg/m2 No Primary Care Physician [facility] 12-12-2024 10:04-0400 Body weight 109.5 kg No Primary Care Physician [facility] 12-03-2024 10:44-0400 Body height 145.5 cm Comfort Clement APRN.CNP Work Phone: [facility] 12-03-2024 10:44-0400 Body mass index (BMI) [Ratio] 50.14 kg/m2 Comfort Clement APRN.COMMUNITY LIAISON Work Phone: [facility] 12-03-2024 10:44-0400 Body weight 106.14 kg Comfort Clement APRN.COMMUNITY LIAISON Work Phone: [facility] 12-03-2024 10:44-0400 Diastolic blood pressure 76 mm[Hg] Comfort Clement APRN.COMMUNITY LIAISON Work Phone: [facility] 12-03-2024 10:44-0400 Heart rate 81 /min Comfort Clement APRN.COMMUNITY LIAISON Work Phone: [facility] 12-03-2024 10:44-0400 SaO2% (BldA) [Mass fraction] 96 % Comfort Clement APRN.COMMUNITY LIAISON Work Phone: [facility] 12-03-2024 10:44-0400 Systolic blood pressure 122 mm[Hg] Comfort Clement APRN.CNP Work Phone: [facility] 10-16-2024 13:39-0500 Body height 145.5 cm Pul Wstr Work Phone: [facility] 10-16-2024 13:39-0500 Body mass index (BMI) [Ratio] 50.57 kg/m2 Pulm Wstr Work Phone: [facility] 10-16-2024 13:39-0500 Body weight 107.05 kg Pulm Wstr Work Phone: [facility] 10-16-2024 13:39-0500 Heart rate 75 /min Pulm Wstr Work Phone: [facility] 10-16-2024 13:39-0500 Respiratory rate 16 /min Pulm Wstr Work Phone: [facility] 10-16-2024 13:39-0500 SaO2% (BldA) [Mass fraction] 98 % Pulm Wstr Work Phone: [facility] 10-02-2024 09:22-0500 Body height 143.5 cm Comfort Clement APRN.COMMUNITY LIAISON Work Phone: [facility] 10-02-2024 09:22-0500 Body mass index (BMI) [Ratio] 52.64 kg/m2 Comfort Clement APRN.COMMUNITY LIAISON Work Phone: [facility] 10-02-2024 09:22-0500 Body temperature 98.6 [degF] Comfort Clement APRN.COMMUNITY LIAISON Work Phone: [facility] 10-02-2024 09:22-0500 Body weight 108.41 kg Comfort Clement APRN.COMMUNITY LIAISON Work Phone: [facility] 10-02-2024 09:22-0500 Diastolic blood pressure 70 mm[Hg] Comfort Clement APRN.COMMUNITY LIAISON Work Phone: [facility] 10-02-2024 09:22-0500 Heart rate 85 /min Comfort Clement APRN.COMMUNITY LIAISON Work Phone: [facility] 10-02-2024 09:22-0500 SaO2% (BldA) [Mass fraction] 98 % Comfort Clement APRN.COMMUNITY LIAISON Work Phone: [facility] 10-02-2024 09:22-0500 Systolic blood pressure 110 mm[Hg] Comfort Clement BULLET CASTING OPERATOR.COMMUNITY LIAISON Work Phone: [facility] 09-26-2024 10:48-0500 Body mass index (BMI) [Ratio] 54.37 kg/m2 Betsy Cleary MD Work Phone: [facility] 09-26-2024 10:48-0500 Body temperature 97.81 [degF] Betsy Cleary MD Work Phone: [facility] 09-26-2024 10:48-0500 Body weight 110 kg Betsy Cleary MD Work Phone: [facility] 09-26-2024 10:48-0500 Diastolic blood pressure 87 mm[Hg] Betsy Cleary MD Work Phone: [facility] 09-26-2024 10:48-0500 Heart rate 72 /min Betsy Cleary MD Work Phone: [facility] 09-26-2024 10:48-0500 Respiratory rate 20 /min Betsy Cleary MD Work Phone: [facility] 09-26-2024 10:48-0500 SaO2% (BldA) [Mass fraction] 97 % Betsy Cleary MD Work Phone: [facility] 09-26-2024 10:48-0500 Systolic blood pressure 124 mm[Hg] Betsy Cleary MD Work Phone: [facility] 09-22-2024 13:27-0500 Body mass index (BMI) [Ratio] 54.27 kg/m2 Liz Suárez BULLET CASTING OPERATOR.COMMUNITY LIAISON Work Phone: [facility] 09-22-2024 13:27-0500 Body temperature 98.29 [degF] Liz Suárez BULLET CASTING OPERATOR.COMMUNITY LIAISON Work Phone: [facility] 09-22-2024 13:27-0500 Body weight 109.8 kg Liz Suárez BULLET CASTING OPERATOR.COMMUNITY LIAISON Work Phone: [facility] 09-22-2024 13:27-0500 Diastolic blood pressure 81 mm[Hg] Liz Suárez BULLET CASTING OPERATOR.COMMUNITY LIAISON Work Phone: [facility] 09-22-2024 13:27-0500 Heart rate 77 /min Liz Suárez BULLET CASTING OPERATOR.COMMUNITY LIAISON Work Phone: [facility] 09-22-2024 13:27-0500 Respiratory rate 18 /min Liz Suárez BULLET CASTING OPERATOR.COMMUNITY LIAISON Work Phone: [facility] 09-22-2024 13:27-0500 SaO2% (BldA) [Mass fraction] 97 % Liz Suárez BULLET CASTING OPERATOR.COMMUNITY LIAISON Work Phone: [facility] 09-22-2024 13:27-0500 Systolic blood pressure 115 mm[Hg] Liz Suárez BULLET CASTING OPERATOR.COMMUNITY LIAISON Work Phone: [facility] 07-30-2024 08:27-0500 Body mass index (BMI) [Ratio] 53.87 kg/m2 Smooth BULLET CASTING OPERATOR.COMMUNITY LIAISON Work Phone: [facility] 07-30-2024 08:27-0500 Body temperature 98.2 [degF] Smooth Derek BULLET CASTING OPERATOR.COMMUNITY LIAISON Work Phone: [facility] 07-30-2024 08:27-0500 Body weight 109 kg Smooth Reed BULLET CASTING OPERATOR.COMMUNITY LIAISON Work Phone: [facility] 07-30-2024 08:27-0500 Diastolic blood pressure 87 mm[Hg] Smooth Derek BULLET CASTING OPERATOR.COMMUNITY LIAISON Work Phone: [facility] 07-30-2024 08:27-0500 Heart rate 95 /min Smooth Derek BULLET CASTING OPERATOR.COMMUNITY LIAISON Work Phone: [facility] 07-30-2024 08:27-0500 Respiratory rate 20 /min Smooth Reed BULLET CASTING OPERATOR.COMMUNITY LIAISON Work Phone: [facility] 07-30-2024 08:27-0500 SaO2% (BldA) [Mass fraction] 98 % Smooth Reed BULLET CASTING OPERATOR.COMMUNITY LIAISON Work Phone: [facility] 07-30-2024 08:27-0500 Systolic blood pressure 122 mm[Hg] Smooth Reed APRN.COMMUNITY LIAISON Work Phone: [facility] 07-02-2024 07:51-0500 Body mass index (BMI) [Ratio] 53.23 kg/m2 Chet Athy PA-C Work Phone: [facility] 07-02-2024 07:51-0500 Body temperature 97.59 [degF] Chet Athy PA-C Work Phone: [facility] 07-02-2024 07:51-0500 Body weight 107.7 kg Chet Athy PA-C Work Phone: [facility] 07-02-2024 07:51-0500 Diastolic blood pressure 78 mm[Hg] Chet Athy PA-C Work Phone: [facility] 07-02-2024 07:51-0500 Heart rate 80 /min Chet Athy PA-C Work Phone: [facility] 07-02-2024 07:51-0500 Respiratory rate 18 /min Chet Athy PA-C Work Phone: [facility] 07-02-2024 07:51-0500 SaO2% (BldA) [Mass fraction] 97 % Chet Athy PA-C Work Phone: [facility] 07-02-2024 07:51-0500 Systolic blood pressure 118 mm[Hg] Chet Athy PA-C Work Phone: [facility] 05-15-2024 08:18-0400 Body mass index (BMI) [Ratio] 52.54 kg/m2 Julio César Troncoso APRN.COMMUNITY LIAISON Work Phone: [facility] 05-15-2024 08:18-0400 Body temperature 97.11 [degF] Julio César Troncoso APRN.COMMUNITY LIAISON Work Phone: [facility] 05-15-2024 08:18-0400 Body weight 106.3 kg [facility] BULLET CASTING OPERATOR.COMMUNITY LIAISON Work Phone: [facility] 05-15-2024 08:18-0400 Diastolic blood pressure 72 mm[Hg] [facility] BULLET CASTING OPERATOR.COMMUNITY LIAISON Work Phone: [facility] 05-15-2024 08:18-0400 Heart rate 77 /min [facility] BULLET CASTING OPERATOR.COMMUNITY LIAISON Work Phone: [facility] 05-15-2024 08:18-0400 Respiratory rate 18 /min [facility]io [facility] BULLET CASTING OPERATOR.COMMUNITY LIAISON Work Phone: [facility] 05-15-2024 08:18-0400 SaO2% (BldA) [Mass fraction] 97 % Julio [facility]a [facility] BULLET CASTING OPERATOR.COMMUNITY LIAISON Work Phone: [facility] 05-15-2024 08:18-0400 Systolic blood pressure 114 mm[Hg] Julio [facility] BULLET CASTING OPERATOR.COMMUNITY LIAISON Work Phone: [facility] 04-03-2024 12:58-0400 Body mass index (BMI) [Ratio] 49.92 kg/m2 Liz Suárez BULLET CASTING OPERATOR.COMMUNITY LIAISON Work Phone: [facility] 04-03-2024 12:58-0400 Body temperature 98.2 [degF] Liz Suárez BULLET CASTING OPERATOR.COMMUNITY LIAISON Work Phone: [facility] 04-03-2024 12:58-0400 Body weight 101 kg Liz Suárez BULLET CASTING OPERATOR.COMMUNITY LIAISON Work Phone: [facility] 04-03-2024 12:58-0400 Diastolic blood pressure 64 mm[Hg] Liz Suárez BULLET CASTING OPERATOR.COMMUNITY LIAISON Work Phone: [facility] 04-03-2024 12:58-0400 Heart rate 86 /min Liz Suárez BULLET CASTING OPERATOR.COMMUNITY LIAISON Work Phone: [facility] 04-03-2024 12:58-0400 Respiratory rate 21 /min Liz Suárez BULLET CASTING OPERATOR.COMMUNITY LIAISON Work Phone: [facility] 04-03-2024 12:58-0400 SaO2% (BldA) [Mass fraction] 98 % Liz Suárez BULLET CASTING OPERATOR.COMMUNITY LIAISON Work Phone: [facility] 04-03-2024 12:58-0400 Systolic blood pressure 102 mm[Hg] Liz Suárez BULLET CASTING OPERATOR.COMMUNITY LIAISON Work Phone: [facility] 03-27-2024 08:51-0400 Body mass index (BMI) [Ratio] 49.77 kg/m2 Emily Alexis BULLET CASTING OPERATOR.COMMUNITY LIAISON Work Phone: [facility] 03-27-2024 08:51-0400 Body temperature 98.71 [degF] Emily Alexis BULLET CASTING OPERATOR.COMMUNITY LIAISON Work Phone: [facility] 03-27-2024 08:51-0400 Body weight 100.7 kg Emily Alexis BULLET CASTING OPERATOR.COMMUNITY LIAISON Work Phone: [facility] 03-27-2024 08:51-0400 Diastolic blood pressure 70 mm[Hg] Emily Alexis BULLET CASTING OPERATOR.COMMUNITY LIAISON Work Phone: [facility] 03-27-2024 08:51-0400 Heart rate 110 /min Emily Alexis BULLET CASTING OPERATOR.COMMUNITY LIAISON Work Phone: [facility] 03-27-2024 08:51-0400 Respiratory rate 18 /min Emily Alexis BULLET CASTING OPERATOR.COMMUNITY LIAISON Work Phone: [facility] 03-27-2024 08:51-0400 SaO2% (BldA) [Mass fraction] 96 % Emily Alexis BULLET CASTING OPERATOR.COMMUNITY LIAISON Work Phone: [facility] 03-27-2024 08:51-0400 Systolic blood pressure 108 mm[Hg] Emily Alexis BULLET CASTING OPERATOR.COMMUNITY LIAISON Work Phone: [facility] 03-14-2024 13:52-0400 Body height 142.2 cm Regan Herrera BULLET CASTING OPERATOR.COMMUNITY LIAISON Work Phone: [facility] 03-14-2024 13:52-0400 Body mass index (BMI) [Ratio] 50.12 kg/m2 Regan Stockert BULLET CASTING OPERATOR.COMMUNITY LIAISON Work Phone: [facility] 03-14-2024 13:52-0400 Body weight 101.4 kg Regan Stockert BULLET CASTING OPERATOR.COMMUNITY LIAISON Work Phone: [facility] [facility] 03-14-2024 13:52-0400 Diastolic blood pressure 76 mm[Hg] Regan Stockert BULLET CASTING OPERATOR.COMMUNITY LIAISON Work Phone: [facility] 03-14-2024 13:52-0400 Heart rate 103 /min Regan Stockert BULLET CASTING OPERATOR.COMMUNITY LIAISON Work Phone: [facility] 03-14-2024 13:52-0400 SaO2% (BldA) [Mass fraction] 96 % Regan Stockert BULLET CASTING OPERATOR.COMMUNITY LIAISON Work Phone: [facility] 03-14-2024 13:52-0400 Systolic blood pressure 109 mm[Hg] Regan Stockert BULLET CASTING OPERATOR.COMMUNITY LIAISON Work Phone: [facility] 11-03-2023 10:32-0400 Body height 142.2 cm Johnathan Pringle MD Work Phone: [facility] 11-03-2023 10:32-0400 Body weight 96.6 kg Johnathan Pringle MD Work Phone: [facility] 11-03-2023 10:32-0400 Diastolic blood pressure 86 mm[Hg] Johnathan Pringle MD Work Phone: [facility] 11-03-2023 10:32-0400 Heart rate 86 /min Johnathan Pringle MD Work Phone: [facility] 11-03-2023 10:32-0400 SaO2% (BldA) [Mass fraction] 100 % Johnathan Pringle MD Work Phone: [facility] 11-03-2023 10:32-0400 Systolic blood pressure 130 mm[Hg] Johnathan Pringle MD Work Phone: [facility] 06-28-2023 12:00-0500 Diastolic Blood Pressure Non-Invasive 70 1 JENNIFER GAGNON MD [facility] 06-28-2023 12:00-0500 Heart rate 88 /min JENNIFER GAGNON MD [facility] 06-28-2023 12:00-0500 Respiratory rate 18 /min JENNIFER GAGNON MD [address] [place] [address] 06-28-2023 12:00-0500 Systolic Blood Pressure Non-Invasive 136 1 JENNIFER GAGNON MD [address] [place] [address] 06-28-2023 08:50-0500 Diastolic Blood Pressure Non-Invasive 84 1 JENNIFER GAGNON MD [address] [place] [address] 06-28-2023 08:50-0500 Reason For Taking VItal Signs JENNIFER GAGNON MD [address] [place] [address] 06-28-2023 08:50-0500 Respiratory rate 17 /min JENNIFER GAGNON MD [address] [place] [address] 06-28-2023 08:50-0500 Systolic Blood Pressure Non-Invasive 126 1 JENNIFER GAGNON MD [address] [place] [address] 06-28-2023 00:38-0500 Body temperature 97.7 [degF] JENNIFER GAGNON MD [address] [place] [address] 06-28-2023 00:38-0500 Diastolic Blood Pressure Non-Invasive 83 1 JENNIFER GAGNON MD [address] [place] [address] 06-28-2023 00:38-0500 Heart rate 86 /min JENNIFER GAGNON MD [address] 06-28-2023 00:38-0500 Respiratory rate 18 /min JENNIFER GAGNON MD [address] [place] [address] 06-28-2023 00:38-0500 Systolic Blood Pressure Non-Invasive 122 1 JENNIFER GAGNON MD [address] [place] [address] 06-27-2023 19:10-0500 Body temperature 96.8 [degF] JENNIFER GAGNON MD [address] [place] [address] 06-27-2023 19:10-0500 Body weight 92.5 kg JENNIFER GAGNON MD [facility] 06-27-2023 19:10-0500 Heart rate 97 /min JENNIFER GAGNON MD [facility] 01-26-2023 14:32-0400 Body height 142.24 cm Silvia Sánchez Work Phone: [facility] [place] [address] DO Work Phone: 01-26-2023 14:32-0400 Body mass index (BMI) [Ratio] 44.28 kg/m2 Silvia Sánchez Work Phone: [facility] [place] [address] DO Work Phone: 01-26-2023 14:32-0400 Body surface area Derived from formula 1.77 m2 Silvia Sánchez Work Phone: [facility] [place] [address] DO Work Phone: 01-26-2023 14:32-0400 Body weight 89.59 kg Silvia Sánchez Work Phone: [facility] [place] [address] DO Work Phone: 01-26-2023 14:32-0400 Diastolic blood pressure 72 mm[Hg] Silvia Sánchez Work Phone: [facility] [place] [address] DO Work Phone: 01-26-2023 14:32-0400 Systolic blood pressure 124 mm[Hg] Silvia Sánchez Work Phone: [facility] [place] [address] DO Work Phone: 01-26-2023 14:32-0400 0 1 Silvia Sánchez Work Phone: [facility] [place] [address] DO Work Phone: Comment on above: [employer] 12-16-2022 14:04-0400 Body height 142.24 cm Silvia Sánchez Work Phone: [facility] [address] DO Work Phone: 12-16-2022 14:04-0400 Body mass index (BMI) [Ratio] 43.9 kg/m2 Silvia Sánchez Work Phone: [facility] 1200 DO Work Phone: 12-16-2022 14:04-0400 Body surface area Derived from formula 1.76 m2 Silvia Sánchez Work Phone: [facility] 1200 DO Work Phone: 12-16-2022 14:04-0400 Body weight 88.81 kg Silvia Sánchez Work Phone: [facility] 1200 DO Work Phone: 12-16-2022 14:04-0400 Diastolic blood pressure 84 mm[Hg] Silvia Sánchez Work Phone: [facility] 1200 DO Work Phone: 12-16-2022 14:04-0400 Systolic blood pressure 116 mm[Hg] Silvia Sánchez Work Phone: MG-OBGYN [facility] 1200 DO Work Phone: 12-16-2022 14:04-0400 0 1 Silvia Sánchez Work Phone: MG-OBGYN [facility] 1200 DO Work Phone: Comment on above: GRAV PARA 12-05-2022 22:27-0400 Body height 142.2 cm Silvia Sánchez Other Phone: [facility] 12-05-2022 22:27-0400 Body temperature 98.42 [degF] Silvia Sánchez Other Phone: [facility] 12-05-2022 22:27-0400 Body weight 89.3 kg Silvia Sánchez Other Phone: [facility] 12-05-2022 22:27-0400 Diastolic blood pressure 103 mm[Hg] Silvia Sánchez Other Phone: [facility] 12-05-2022 22:27-0400 Heart rate 85 /min Silvia Sánchez Other Phone: [facility] 12-05-2022 22:27-0400 Respiratory rate 18 /min Silvia Sánchez Other Phone: [facility] 12-05-2022 22:27-0400 SaO2% (BldA) [Mass fraction] 98 % Silvia Sánchez Other Phone: [facility] 12-05-2022 22:27-0400 Systolic blood pressure 138 mm[Hg] Silvia Sánchez Other Phone: [facility] 12-29-2021 12:48-0400 Body height 142.2 cm Farzana Ochoa MD Work Phone: [facility] 12-29-2021 12:48-0400 Body weight 93.44 kg Farzana Ochoa MD Work Phone: [facility] 12-29-2021 12:48-0400 Diastolic blood pressure 69 mm[Hg] Farzana Ochoa MD Work Phone: [facility] 12-29-2021 12:48-0400 Heart rate 93 /min Farzana Ochoa MD Work Phone: [facility] 12-29-2021 12:48-0400 Respiratory rate 16 /min Farzana Ochoa MD Work Phone: [facility] 12-29-2021 12:48-0400 Systolic blood pressure 113 mm[Hg] Farzana Ochoa MD Work Phone: [facility] 12-09-2021 09:23-0400 Body height 142.2 cm Laya Chanel MD Work Phone: [facility] 12-09-2021 09:23-0400 Body weight 94.71 kg Laya Chanel MD Work Phone: [facility] 12-09-2021 09:23-0400 Diastolic blood pressure 74 mm[Hg] Laya Chanel MD Work Phone: [facility] 12-09-2021 09:23-0400 Heart rate 80 /min Laya Chanel MD Work Phone: [facility] 12-09-2021 09:23-0400 Systolic blood pressure 116 mm[Hg] Laya Chanel MD Work Phone: [facility] 06-17-2021 15:26-0400 Diastolic blood pressure 63 mm[Hg] Silvia Sánchez Other Phone: [facility] 06-17-2021 15:26-0400 Heart rate 67 /min Silvia Sánchez Other Phone: [facility] 06-17-2021 15:26-0400 Respiratory rate 18 /min Silvia Sánchez Other Phone: [facility] 06-17-2021 15:26-0400 SaO2% (BldA) [Mass fraction] 99 % Silvia Sánchez Other Phone: [facility] 06-17-2021 15:26-0400 Systolic blood pressure 104 mm[Hg] Silvia Sánchez Other Phone: [facility] 06-17-2021 13:44-0400 Body height 142.2 cm Silvia Sánchez Other Phone: [facility] 06-17-2021 13:44-0400 Body temperature 96.98 [degF] Silvia Sánchez Other Phone: [facility] 06-17-2021 13:44-0400 Body weight 81.1 kg Silvia Sánchez Other Phone: [facility] 05-07-2021 09:39-0400 Body height 142.24 cm Silvia Sánchez Work Phone: QY-EBRM-ASRO [address] [place] [address] Work Phone: 05-07-2021 09:39-0400 Body mass index (BMI) [Ratio] 42.18 kg/m2 Silvia Sánchez Work Phone: SD-YYCG-RQFE [address] [place] [address] Work Phone: 05-07-2021 09:39-0400 Body surface area Derived from formula 1.73 m2 Silvia Sánchez Work Phone: OW-OGPM-EXIP [address] [place] [address] Work Phone: 05-07-2021 09:39-0400 Body temperature 97 [degF] Silvia Sánchez Work Phone: XW-YDQI-POBI [address] [place] [address] Work Phone: 05-07-2021 09:39-0400 Body weight 85.34 kg Silvia Sánchez Work Phone: JS-ZEFV-GUQR [address] [place] [address] Work Phone: 05-07-2021 09:39-0400 Diastolic blood pressure 80 mm[Hg] Silvia Sánchez Work Phone: JN-PGHF-HEEJ [address] [place] [address] Work Phone: 05-07-2021 09:39-0400 Systolic blood pressure 114 mm[Hg] Silvia Sánchez Work Phone: SU-WKVE-WFOO [place] [address] Work Phone: 05-07-2021 09:39-0400 0 1 Silvia Sánchez Work Phone: TU-QMWM-LJJW [address] [place] [address] Work Phone: Comment on above: GRAV PARA [employer] 05-14-2019 17:17-0400 BMI (Body Mass Index) 43.8 kg/m2 Anupama Hernandes XN-WOTI-TNXD [place] [address] M Work Phone: 05-14-2019 17:17-0400 Body weight 88.62 kg Anupama Hernandes KV-DRXH-UGOH [place] [address] M Work Phone: 05-14-2019 17:17-0400 BP Diastolic 74 mm[Hg] Anupama De La Vegaconish FV-LBJN-LONX [place] [address] M Work Phone: 05-14-2019 17:17-0400 BP Systolic 124 mm[Hg] Anupama De La Vegaconish RE-COAO-OTJJ [place] [address] M Work Phone: 05-14-2019 17:17-0400 BSA (Body Surface Area) 1.76 m2 Anupama De La Vegaconish VL-SJHU-MAMO [place] [address] M Work Phone: 05-14-2019 17:17-0400 Height 142.24 cm Anupama Hernandes IS-MVLK-YRVU [place] [address] M Work Phone: 05-14-2019 17:17-0400 0 1 Anupama Urbinaish IO-REZQ-PNCV [place] [address] M Work Phone: Comment on above: Para Encounters Encounter Date Encounter Type Care Provider Facility Start: 04-04-2025 End: 04-04-2025 Emergency department patient visit No Primary Care Physician -Emergency Department Work Phone: Start: 03-31-2025 ambulatory [facility] Facility :[facility] Start: 03-04-2025 End: 03-04-2025 Telephone encounter Comfort Clement APRN.CNP Work Phone: [facility] Start: 02-25-2025 End: 02-25-2025 ambulatory Liz Vee PT [facility] Comment on above: 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 Diony Benton MD -[facility] Start: 02-19-2025 End: 02-19-2025 ambulatory No Primary Care Physician -[facility] Start: 02-13-2025 End: 02-17-2025 Telephone encounter Comfort Clement APRN.COMMUNITY LIAISON Work Phone: [facility] Comment on above: Medication Question Start: 02-07-2025 End: 02-07-2025 Telephone encounter Comfort Clement APRN.COMMUNITY LIAISON Work Phone: [facility] Comment on above: No Show (Pt no showe d for appt on 02/07/25) Start: 01-31-2025 End: 01-31-2025 Patient encounter procedure Gael Wells [place] -[facility] Work Phone: Start: 01-31-2025 End: 01-31-2025 ambulatory No Primary Care Physician [facility] Work Phone: Start: 01-28-2025 End: 01-28-2025 ambulatory Liz Vee PT [facility] Comment on above: Degeneration of inte rvertebral disc of lumbar region with discogenic back pain and lower extremity pain (Primary Dx); Primary osteoarthritis of both knees; Decreased mobility Start: 01-21-2025 End: 01-21-2025 Telephone encounter Comfort Clement APRN.CNP Work Phone: [facility] Start: 01-12-2025 End: 01-13-2025 Follow-up encounter Smooth Reed APRN.CNP Work Phone: [facility] Start: 01-10-2025 End: 01-10-2025 ambulatory COMFORT CLEMENT Facility:[facility] Start: 01-09-2025 End: 01-09-2025 ambulatory COMFORT CLEMENT Facility:[facility] Start: 12-30-2024 End: 12-30-2024 ambulatory Kimberly Mahoney PT [facility] Comment on above: Degeneration of inte rvertebral disc of lumbar region with discogenic back pain and lower extremity pain (Primary Dx) Start: 12-23-2024 End: 12-23-2024 Telephone encounter Comfort Clement APRN.CNP Work Phone: [facility] Comment on above: Refill Request Start: 12-12-2024 End: 12-12-2024 Emergency department patient visit No Primary Care Physician -Emergency Department Work Phone: Start: 12-11-2024 End: 02-10-2025 Follow-up encounter Comfort Clement APRN.CNP Work Phone: [facility] Start: 12-09-2024 End: 12-11-2024 Telephone encounter Comfort Clement APRN.CNP Work Phone: [facility] Comment on above: Results (Labs and x- rays) Start: 12-09-2024 End: 12-09-2024 ambulatory Liz Vee PT [facility] Comment on above: Degeneration of inte rvertebral disc of lumbar region with discogenic back pain and lower extremity pain (Primary Dx) Start: 12-03-2024 End: 12-03-2024 Subsequent hospital visit by physician [facility] Comment on above: Bilateral primary os teoarthritis of knee [M17.0] Start: 12-03-2024 End: 12-03-2024 Patient encounter procedure Comfort Clement APRN.CNP Work Phone: [facility] Comment on above: Type 2 diabetes arthur itus without complication, without long- term current use of insulin (HCC) (Primary Dx); Acquired hypothyroidism; Bilateral primary osteoarthritis of knee; Degeneration of intervertebral disc of lumbar region with discogenic back pain and lower extremity pain; Chronic pain of both knees; Chronic pain syndrome; Spondylolisthesis, lumbar region Start: 12-03-2024 End: 12-03-2024 ambulatory Gage Mathew RN NURSE INVESTIGATIONS CHIEF Comment on above: Lab & Test Results Start: 11-13-2024 End: 11-13-2024 Patient encounter procedure Marielle Aden PT Work Phone: [facility] Comment on above: Degeneration of inte rvertebral disc of lumbar region with discogenic back pain and lower extremity pain; Primary osteoarthritis of both knees; Decreased mobility Start: 11-13-2024 End: 11-13-2024 ambulatory Marielle Shipmanis PT Work Phone: [facility] Start: 11-08-2024 End: 11-08-2024 Telephone encounter Comfort Clement APRN.COMMUNITY LIAISON Work Phone: [facility] Comment on above: Lab Orders Start: 11-04-2024 End: 11-04-2024 Telephone encounter Comfort Clement APRN.COMMUNITY LIAISON Work Phone: [facility] Comment on above: Patient Question Start: 10-16-2024 End: 10-16-2024 Follow-up encounter Comfort Clement APRN.COMMUNITY LIAISON Work Phone: [facility] Start: 10-16-2024 End: 10-16-2024 ambulatory Pulm Lab [facility] Work Phone: PULM LAB [facility] Comment on above: Spirometry Start: 10-16-2024 End: 10-16-2024 Patient encounter procedure Pulm Lab [facility] Work Phone: PULM LAB [facility] Start: 10-14-2024 End: 10-14-2024 Follow-up encounter Regan Herrera APRN.COMMUNITY LIAISON Work Phone: [facility] Start: 10-10-2024 End: 10-11-2024 Follow-up encounter Comfort Clement APRN.COMMUNITY LIAISON Work Phone: [facility] Comment on above: Vitamin D deficiency (Primary Dx) Start: 10-10-2024 End: 10-10-2024 Subsequent hospital visit by physician Screen Mammo [facility] Mammogram Comment on above: Encounter for screen ing mammogram for breast cancer [Z12.31] Start: 10-10-2024 End: 10-10-2024 ambulatory COMFORT ZAMORALUKASZ Facility: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; Type 2 diabetes mellitus without complication, without long-term current use of insulin (HCC); Abnormal uterine bleeding; Mixed hyperlipidemia; PCOD (polycystic ovarian disease); Vitamin D deficiency; Vitamin B12 deficiency; Degeneration of intervertebral disc of lumbar region with discogenic back pain and lower extremity pain; Primary osteoarthritis of both knees; Hand dermatitis; Mild intermittent asthma, uncomplicated; Decreased mobility Start: 10-02-2024 End: 10-02-2024 [facility] COMFORT C RACQUEL Facility:[facility] Start: 09-26-2024 End: 09-30-2024 Telephone encounter Liz Suárez APRN.COMMUNITY LIAISON Work Phone: [facility] Comment on above: Results Start: 09-26-2024 End: 09-26-2024 [facility] Facility:[facility] Start: 09-26-2024 End: 09-26-2024 Office outpatient visit 25 minutes Betsy Cleary MD Work Phone: [facility] Comment on above: Sore throat (Primary Dx); Upper respiratory tract infection, unspecified type Start: 09-22-2024 End: 09-22-2024 [facility] Facility:[facility] Start: 09-22-2024 End: 09-22-2024 Patient encounter procedure Liz Suárez APRN.CNP Work Phone: [facility] Comment on above: Laceration of fifth toe (Primary Dx) Start: 07-30-2024 End: 07-30-2024 Subsequent hospital visit by physician Xr [facility] Work Phone: Radiology Comment on above: Acute cough [R05.1] Start: 07-30-2024 End: 07-30-2024 ambulatory SMOOTH KING Facility:[facility] Start: 07-30-2024 End: 07-30-2024 Patient encounter procedure Smooth Reed BULLET CASTING OPERATOR.COMMUNITY LIAISON Work Phone: [facility] Comment on above: Lower resp. tract in fection (Primary Dx); Acute cough Start: 07-12-2024 End: 07-12-2024 Emergency department patient visit No Primary Care Physician Facility:[facility] Start: 07-05-2024 End: 07-05-2024 Telephone encounter Chet Zhu PA-C Work Phone: [facility] Comment on above: Patient Question Start: 07-04-2024 End: 07-04-2024 Emergency department patient visit Richyabner Gallaghero Facility:[facility] Start: 07-02-2024 End: 07-02-2024 ambulatory COMFORT CLEMENT Facility:[facility] Start: 07-02-2024 End: 07-02-2024 Patient encounter procedure Chet Zhu PA-C Work Phone: [facility] Comment on above: Chronic pain of righ t knee (Primary Dx); Chronic right-sided low back pain with right-sided sciatica Start: 07-01-2024 End: 07-01-2024 ambulatory No Primary Care Physician [facility] Start: 06-04-2024 End: 06-04-2024 ambulatory MARILYN LLANOS Facility:[facility] Start: 05-28-2024 End: 05-28-2024 Emergency department patient visit No Primary Care Physician Facility:[facility] Start: 05-15-2024 End: 05-15-2024 Subsequent hospital visit by physician [facility] Work Phone: Radiology Comment on above: Pain of left lower l eg [M79.662] Start: 05-15-2024 End: 05-15-2024 ambulatory JULIO CÉSAR TRONCOSO Facility:[facility] Start: 05-15-2024 End: 05-15-2024 Office outpatient visit 15 minutes Julio César Troncoso BULLET CASTING OPERATOR.COMMUNITY LIAISON Work Phone: [facility] Comment on above: Pain of left lower l eg (Primary Dx) Start: 04-03-2024 End: 04-03-2024 ambulatory [facility] Facility:[facility] Start: 04-03-2024 End: 04-03-2024 Patient encounter procedure Liz Suárez BULLET CASTING OPERATOR.COMMUNITY LIAISON Work Phone: [facility] Comment on above: Acute otitis media, right (Primary Dx); URI, acute Start: 03-28-2024 Telephone encounter No Pcp BULLET CASTING OPERATOR [facility] Comment on above: Results Start: 03-27-2024 End: 03-27-2024 [facility]ulatory [facility] Start: 03-27-2024 End: 03-27-2024 Patient encounter procedure Emily Alexis BULLET CASTING OPERATOR.COMMUNITY LIAISON Work Phone: [facility] Comment on above: Bronchitis (Primary Dx); Sorethroat Start: 03-15-2024 Telephone encounter Regan perez BULLET CASTING OPERATOR.COMMUNITY LIAISON Work Phone: [facility] Comment on above: Results Start: 03-14-2024 End: 03-14-2024 Patient encounter procedure Regan Herrera BULLET CASTING OPERATOR.COMMUNITY LIAISON Work Phone: [facility] Comment on above: Encounter for gyneco logical examination (general) (routine) without abnormal findings (Primary Dx); Encounter for screening mammogram for malignant neoplasm of breast; Screening for cervical cancer; Screen for STD (sexually transmitted disease); Secondary amenorrhea; PCOS (polycystic ovarian syndrome); Acute vaginitis Start: 03-14-2024 End: 03-14-2024 Patient encounter status Regan Herrera BULLET CASTING OPERATOR.COMMUNITY LIAISON Work Phone: [facility] Work Phone: Start: 03-14-2024 End: 03-14-2024 ambulatory REGAN HERRERA Facility:[id number] Start: 03-14-2024 Encounter for gynecological examination (general) (routine) without abnormal findings [facility] Start: 02-09-2024 Emergency department patient visit REGAN HERRERA Facility:[id number] Start: 12-05-2023 End: 12-05-2023 ambulatory Washington Levin CLERK GENERAL [facility] [place] Comment on above: Pain in joint, multi ple sites (Primary Dx); Muscle weakness Start: 11-29-2023 End: 11-29-2023 ambulatory Washington Levin CLERK GENERAL [facility] [place] Comment on above: Pain in joint, multi ple sites (Primary Dx); Muscle weakness Start: 11-22-2023 End: 11-22-2023 ambulatory Tanika Padgett CLERK GENERAL Work Phone: [facility] [place] Comment on above: Pain in joint, multi ple sites (Primary Dx); Muscle weakness Start: 11-15-2023 End: 11-15-2023 ambulatory RYAN DANGSUSANNAFrancesTRAVIS Facility:[id number] Start: 11-03-2023 End: 11-03-2023 Patient encounter procedure Johnathan Pringle MD Work Phone: [facility] Comment on above: DDD (degenerative di sc disease), lumbar (Primary Dx); Lumbar radiculopathy; Cervical radiculopathy Start: 10-27-2023 Emergency department patient visit REGAN HERRERA Facility:[id number] Start: 09-25-2023 ambulatory Claudia Martinez RN C [facility] Start: 09-25-2023 Patient encounter procedure Claudia Martinez RN NURSE INVESTIGATIONS CHIEF Comment on above: Clinical Update Start: 09-04-2023 End: 09-04-2023 Emergency department patient visit REGAN HERRERA Facility:[id number] Start: 08-04-2023 Emergency department patient visit REGAN HERRERA Facility:[id number] Start: 07-28-2023 Emergency department patient visit REGAN HERRERA Facility:[id number] Start: 07-27-2023 Emergency department patient visit SILVIA SÁNCHEZ Facility:[id number] Start: 07-14-2023 End: 07-14-2023 Emergency department patient visit SILVIA SÁNCHEZ Facility:[id number] Start: 07-10-2023 End: 07-10-2023 Emergency department patient visit SILVIA SÁNCHEZ Facility:[id number] Start: 06-27-2023 End: 06-28-2023 Emergency department patient visit DAKOTA DUMONT Facility:A Start: 06-27-2023 End: 06-28-2023 Emergency department patient visit JENNIFER GAGNON MD [facility] Start: 05-23-2023 End: 05-23-2023 ambulatory [facility] Start: 03-09-2023 Refill Gillian Olivo BULLET CASTING OPERATOR.COMMUNITY LIAISON Work Phone: [address] [place] [address] Comment on above: Refill Request; Atte mpted to contact pt (PSR please read documentaion if pt calls back. ) Start: 02-11-2023 Chart Update Silvia kaufman Work Phone: [facility] 201B DO Work Phone: Start: 01-28-2023 Chart Update Silvia kaufman Work Phone: [facility] 201B DO Work Phone: Start: 01-26-[address] Silvia Muñiz ility:[facility] Start: 01-26-[address] Silvia Muñiz ility:[id number] Start: 01-02-2023 Chart Update Silvia kaufman Work Phone: [facility] DO Work Phone: Start: 12-20-2022 Encounter for gynecological examination (general) (routine) without abnormal findings Ms. Shawnee Dill [facility] Start: 12-16-2022 Encounter for gynecological examination (general) (routine) without abnormal findings Dr. Silvia Sánchez Facility:[facility] Start: 12-16-[address] Silvia Muñiz ility:[facility] Start: 12-16-2022 Periodic preventive med est patient 40-64yrs Silvia Sánchez Work Phone: [facility] 1200 DO Work Phone: Start: 12-16-2022 ambulatory Ms. Shawnee Dill Facility:[id number] Start: 12-05-2022 End: 12-06-2022 Emergency department patient visit [facility] 05 Start: 10-13-2022 Telephone encounter Laya Chanel MD Work Phone: Endocrinology Comment on above: Patient Question; Ventura chang Update; Manual Lathe Machinist - Other Start: 05-31-2022 End: 05-31-2022 Patient encounter procedure Leoncio Meadows PA-C Work Phone: Orthopaedics Comment on above: Infrapatellar bursit is of right knee (Primary Dx) Start: 05-31-2022 End: 05-31-2022 Subsequent hospital visit by physician Xr [facility] Radiology Comment on above: Pain [R52] Start: 02-20-2022 Refill Gillian C Cioce BULLET CASTING OPERATOR.COMMUNITY LIAISON Work Phone: Endocrinology Comment on above: Refill Request Start: 01-26-2022 Telephone encounter Farzana craig MD Work Phone: Endocrinology Comment on above: Medication Problem Start: 01-10-2022 Telephone encounter Farzana craig MD Work Phone: Endocrinology & Metabolic [place] Comment on above: Patient Request Start: 12-29-2021 End: 12-29-2021 Patient encounter procedure Farzana De Leon MD Work Phone: Endocrinology Comment on above: Impaired fasting glu cose (Primary Dx); Acquired hypothyroidism; Obesity, Class III, BMI 40-49.9 (morbid obesity) ([facility]) Start: 12-09-2021 End: 12-09-2021 Patient encounter procedure Laya Chanel MD Work Phone: Endocrinology Comment on above: Impaired fasting glu cose (Primary Dx); Acquired hypothyroidism; Obesity, Class III, BMI 40-49.9 (morbid obesity) ([facility]) Start: 11-24-2021 Refill Gillian C Cioce BULLET CASTING OPERATOR.COMMUNITY LIAISON Work Phone: Endocrinology Comment on above: Refill Request Start: 11-24-2021 Refill Laya mosley MD Work Phone: Endocrinology Start: 06-24-2021 End: 06-24-2021 Subsequent hospital visit by physician Xr [facility] Comment on above: Pain [R52] Start: 06-17-2021 End: 06-17-2021 Emergency department patient visit [facility] 20 Start: 05-26-2021 AUDIT Silvia Palm a Work Phone: [facility] 1200 Work Phone: Start: 05-08-2021 Chart Update Silvia Palm a Work Phone: [facility] 1200 Work Phone: Start: 05-07-2021 Office outpatient vi sit 25 minutes Silvia Sánchez Work Phone: -[facility] 1200 Work Phone: Start: 05-07-2021 Patient encounter procedure Silvia Sánchez Work Phone: [id number] [facility] 1200 Work Phone: Start: 03-26-2021 AUDIT Silvia Palm a Work Phone: [id number] [place] [address] M Work Phone: Start: 05-14-2019 Patient encounter procedure Anupama Hernandes [id number] [place] [address] M Work Phone: Start: 08-28-2018 Emergency department patient visit No Family Physician Facility:[facility] Start: 03-29-2018 Patient encounter procedure Anupama Hernandes [id number] [place] [address] M Work Phone: Start: 03-18-2018 Emergency department patient visit No Family Physician Facility:[facility] Patient encounter procedure Silvia Sánchez Work Phone: [id number] [place] [address] M Work Phone: End: 12-16-2022 Patient encounter procedure Silvia Sánchez Work Phone: [facility] 1200 DO Work Phone: Procedures Date Procedure Procedure Detail Performing Clinician Start: 04-04-2025 Estimated creatinine clearance No Primary Care Physician Start: 02-19-2025 X-ray of knee, four or more views No Primary Care Physician Start: 12-12-2024 Urine culture No Primar y Care Physician Start: 12-12-2024 Urnls dip stick/tabl et reagent auto microscopy No Primary Care Physician Start: 10-16-2024 Brncdilat rspse spmt ry pre&post-brncdilat admn Comfort Clement BULLET CASTING OPERATOR.[facility] Work Phone: Start: 09-26-2024 STREP A MOLECULAR (POC) Betsy Cleary MD Work Phone: Start: 07-30-2024 Radiologic exam ches t 2 views Smooth Reed BULLET CASTING OPERATOR.COMMUNITY LIAISON Work Phone: Start: 05-15-2024 Radiologic examinati on tibia & fibula 2 views Julio César Troncoso BULLET CASTING OPERATOR.COMMUNITY LIAISON Work Phone: Start: 03-27-2024 STREP A MOLECULAR (POC) [facility] Provider Start: 12-16-2022 Mammography Gillian mccullough BULLET CASTING OPERATOR.COMMUNITY LIAISON Work Phone: Start: 05-31-2022 Radiologic exam knee complete 4/more views Leoncio Meadows PA-C Work Phone: Start: 12-09-2021 Hemoglobin A1c/Hemoglobin.total in Blood Laya Chanel MD Work Phone: Start: 06-24-2021 Radiologic exam knee complete 4/more views Ryan Betancourt DO Work Phone: Start: 05-14-2019 MG Breast screening Don ya [place] Start: 05-14-2019 Microscopic observat ion [Identifier] in Cervix by Cyto stain.thin prep Anupama Hernandes Start: 04-11-2018 Lipid 1996 panel - S mariza or Plasma Comfort Clement APRN.COMMUNITY LIAISON Work Phone: History of Cholecystotomy Do jie Hernandes Plan of Treatment Date Care Activity Detail Author Start: 03-14-2029 Screening for malign ant neoplasm of cervix Cervical Cancer Screening [facility] Start: 10-10-2027 Diabetes Screening Diabetes Screenin g [facility] Start: 12-03-2025 Annual PCP Team Senior Sharepoint Architect megha Disease Visit Annual PCP Team Chronic Disease Visit [facility] Start: 12-03-2025 Hepatitis B surface antibody level LDL Cholesterol [facility] Start: 10-10-2025 Screening for malign ant neoplasm of breast Mammogram Screening [facility] Start: 10-02-2025 Annual PCP Team Senior Sharepoint Architect megha Disease Visit Annual PCP Team Chronic Disease Visit [facility] Start: 10-02-2025 Anxiety Screening Anxiety Screening [facility] Comment on above: Postponed from 06/12 (Declined at this time) Start: 10-02-2025 Covid-19 Vaccine ( season) Covid-19 Vaccine () [facility] Comment on above: Postponed from 04/21 (Declined at this time) Start: 10-02-2025 Urine microalbumin profile DTaP,Tdap,Td Vaccine (1 - Tdap) [facility] Comment on above: Postponed from 06/12 (Declined at this time) Start: 04-21-2025 Influenza vaccination [facility] Start: 04-09-2025 Hemoglobin A1c measurement HbA1C [facility] Start: 04-04-2025 [facility] Start: 03-24-2025 End: 03-24-2025 Patient encounter procedure 03/24/2025 10:30 AM EDT Office Visit OB/Gynecology [address] [place], [place] [id number] aPdmini Porter APRN.COMMUNITY LIAISON [address] [place] [address] Abnormal uterine bleeding [N93.9] OB/Gynecology Comment on above: Abnormal uterine ble eding [N93.9] Start: 03-10-2025 End: 03-10-2025 Patient encounter procedure 03/10/2025 11:00 AM EDT Office Visit Orthopaedics [address] [place] [address] Alia Harris PA-C [address] [place] [address] Primary osteoarthritis of both knees [M17.0] Orthopaedics Comment on above: Primary osteoarthrit is of both knees [M17.0] Start: 03-05-2025 End: 03-05-2025 ambulatory 03/05/2025 12:00 PM EDT OT/PT/Speech Visit [facility] [address] [place] [address] O'Liz Zavala, PT Degeneration of intervertebral disc of lumbar region with discogenic back pain and lower extremity pain [M51.362] [facility] Comment on above: Degeneration of inte rvertebral disc of lumbar region with discogenic back pain and lower extremity pain [M51.362] Start: 03-04-2025 End: 03-04-2025 Patient encounter procedure [facility] Comment on above: 3 MTH F/U Chronic pa in knees/back 3 MTH F/U Chronic pa in knees/back/stomach Start: 02-25-2025 End: 02-25-2025 ambulatory 02/25/2025 3:00 PM EDT OT/PT/Speech Visit [facility] [address] [place] [address] O'Liz Zavala, PT Degeneration of intervertebral disc of lumbar region with discogenic back pain and lower extremity pain [M51.3 [facility] Comment on above: Degeneration of inte rvertebral disc of lumbar region with discogenic back pain and lower extremity pain [M51.3 Start: 02-19-2025 X-ray of knee, four or more views Knee 4 or More Views [facility] Start: 02-19-2025 XR Knee GE 4 Views [facility] Start: 02-17-2025 End: 02-17-2025 ambulatory 02/17/2025 3:30 PM EDT OT/PT/Speech Visit [facility] [address] [place] [address] Liz Vee, PT Degeneration of intervertebral disc of lumbar region with discogenic back pain and lower extremity pain [M51.362] [facility] Comment on above: Degeneration of inte rvertebral disc of lumbar region with discogenic back pain and lower extremity pain [M51.362] Start: 02-17-2025 Influenza vaccination Influenza Vacc ine (#1) [facility] Comment on above: Postponed from 04/21 (Declined at this time) Start: 02-14-2025 End: 02-14-2025 Patient encounter procedure OB/Gynecology Comment on above: Abnormal uterine ble eding [N93.9] Bilateral knee pain Start: 02-13-2025 End: 02-13-2025 ambulatory 02/13/2025 11:00 AM EDT OT/PT/Speech Visit [facility] [address] [place] [address] Liz Vee, PT Degeneration of intervertebral disc of lumbar region with discogenic back pain and lower extremity pain [M51.3 [facility] Comment on above: Degeneration of inte rvertebral disc of lumbar region with discogenic back pain and lower extremity pain [M51.3 Start: 02-07-2025 End: 02-07-2025 Patient encounter procedure 02/07/2025 1:20 PM EDT Office Visit [facility] [address] [place] [address] Nunu Mckenzie, BULLET CASTING OPERATOR.COMMUNITY LIAISON [address] [place] [address] constipation [facility] Comment on above: constipation Start: 02-04-2025 End: 02-04-2025 ambulatory 02/04/2025 1:30 PM EDT OT/PT/Speech Visit [facility] [address] [place] [address] O'Liz Zavala, PT BACK PAIN [facility] Comment on above: BACK PAIN Start: 02-03-2025 End: 02-03-2025 ambulatory 02/03/2025 12:30 PM EDT OT/PT/Speech Visit [facility] [address] [place] [address] O'LucasLiz corey, PT BACK PAIN [facility] Comment on above: BACK PAIN Start: 01-28-2025 End: 01-28-2025 ambulatory 01/28/2025 2:15 PM EDT OT/PT/Speech Visit [facility] [address] [place] [address] O'LucasLiz corey, PT BACK PAIN [facility] Comment on above: BACK PAIN Start: 01-20-2025 End: 01-20-2025 Patient encounter procedure Orthopaedics Comment on above: Primary osteoarthrit is of both knees [M17.0] Bilateral knee pain Start: 01-17-2025 End: 01-17-2025 ambulatory 01/17/2025 9:15 AM EDT OT/PT/Speech Visit [facility] [address] [place] [address] O'LucasLiz corey, PT M51.362 (ICD-10-CM) - Degeneration of intervertebral disc of lumbar region with discogenic back pain and lower extremity pain [facility] Comment on above: M51.362 (ICD-10-CM) - Degeneration of intervertebral disc of lumbar region with discogenic back pain and lower extremity pain Start: 01-16-2025 End: 01-16-2025 Patient encounter procedure 01/16/2025 1:00 PM EDT Office Visit [facility] [address] [place] [address] Nunu Mckenzie, BULLET CASTING OPERATOR.[facility] [address] [place] [address] constipation [facility] Comment on above: constipation Start: 01-16-2025 End: 01-16-2025 ambulatory 01/16/2025 11:30 AM EDT OT/PT/Speech Visit [facility] [address] [place] [address] Andrea Garcia, PT [address] [place] [address] M51.362 (ICD-10-CM) - Degeneration of intervertebral disc of lumbar region with discogenic back pain and lower extremity pain [facility] Comment on above: M51.362 (ICD-10-CM) - Degeneration of intervertebral disc of lumbar region with discogenic back pain and lower extremity pain Start: 01-09-2025 End: 01-09-2025 ambulatory 01/09/2025 11:30 AM EDT OT/PT/Speech Visit [facility] [address] [place] [address] Andrea Garcia, PT [address] [place] [address] M51.362 (ICD-10-CM) - Degeneration of intervertebral disc of lumbar region with discogenic back pain and lower extremity pain [facility] Comment on above: M51.362 (ICD-10-CM) - Degeneration of intervertebral disc of lumbar region with discogenic back pain and lower extremity pain Start: 01-02-2025 End: 01-02-2025 Patient encounter procedure 01/02/2025 10:30 AM EDT Office Visit OB/Gynecology [address] [place] [address] Padmini Porter, BULLET CASTING OPERATOR.COMMUNITY LIAISON [address] [place] [address] Abnormal uterine bleeding [N93.9] OB/Gynecology Comment on above: Abnormal uterine ble eding [N93.9] Start: 12-30-2024 End: 12-30-2024 ambulatory 12/30/2024 11:30 AM EDT OT/PT/Speech Visit [facility] [address] [address] Kimberly Mahoney, PT Dry Needling [facility] Comment on above: Dry Needling Start: 12-12-2024 Bacteria identified in Urine by Culture Urine Culture [facility] Start: 12-12-2024 [facility] Start: 12-12-2024 [facility] Start: 12-03-2024 Subsequent hospital visit by physician 12/03/2024 11:40 AM EDT Hospital Encounter [facility] [address] [place] [address] Bilateral primary osteoarthritis of knee [M17.0] [facility] Comment on above: Bilateral primary os teoarthritis of knee [M17.0] Start: 12-03-2024 End: 12-03-2024 Patient encounter procedure 12/03/2024 10:40 AM EDT Office Visit [address] [address] Comfort Clement APRN.COMMUNITY LIAISON [address] [place] [phone] 1 MTH F/U DM and Thyroid [facility] Comment on above: 1 MTH F/U DM and Thy roid Start: 11-21-2024 End: 11-21-2024 Patient encounter procedure 11/21/2024 2:00 PM EDT Office Visit OB/Gynecology [address] [place] [address] Inez Palacios APRN.CNM [address] [place] [address] Abnormal uterine bleeding [N93.9] OB/Gynecology Comment on above: Abnormal uterine ble eding [N93.9] Start: 11-13-2024 End: 11-13-2024 Patient encounter procedure [facility] Comment on above: Degeneration of inte rvertebral disc of lumbar region with discogenic back pain and lower extremity pain [M51.362]; Primary osteoarthritis of both knees [M17.0]; Decreased mobility [R26.89] Start: 10-16-2024 End: 10-16-2024 ambulatory PULM LAB [facility] Comment on above: Mild intermittent as thma, uncomplicated [J45.20 Start: 10-02-2024 End: 04-30-2025 Lipid 1996 panel - Serum or Plasma LIPID PANEL BASIC Lab Routine Type 2 diabetes mellitus without complication, without long-term current use of insulin (HCC) Expected: 10/02/2024, Expires: 04/30/2025 [facility] Work Phone: Comment on above: Expected: 10/02/2024 , Expires: 04/30/2025 Start: 10-02-2024 End: 10-02-2024 Patient encounter procedure 10/02/2024 9:20 AM EST Office Visit [facility] [address] [place], [place] [id number] Comfort Clement, BULLET CASTING OPERATOR.COMMUNITY LIAISON [address] [place] [address] est care [facility] Comment on above: est care Start: 2024 Lipid panel Lipid Screening [facility] Start: 2024 Screening for malign ant neoplasm of colon [facility] Start: 04-21-2024 Covid-19 Vaccine ( season) Covid-19 Vaccine ( season) [facility] Start: 04-21-2024 Influenza vaccination [facility] Start: 04-15-2024 End: 07-15-2024 Follitropin [Units/volume] in Serum or Plasma FOLLICLE STIMULATING HORMONE Lab Routine Abnormal FSH level Expected: 04/15/2024 (Approximate), Expires: 07/15/2024 [facility] Work Phone: Comment on above: Expected: 04/15/2024 (Approximate), Expires: 07/15/2024 Start: 04-15-2024 End: 07-15-2024 WHIIVF ANTI MULLERIAN HORMONE WHIIVF ANTI MULLERIAN HORMONE Lab Routine Abnormal FSH level Expected: 04/15/2024 (Approximate), Expires: 07/15/2024 [facility] Comment on above: Expected: 04/15/2024 (Approximate), Expires: 07/15/2024 Start: 04-04-2024 End: 04-04-2024 Patient encounter procedure [facility] Comment on above: secondary amenorrhea screening mammo Start: 03-20-2024 End: 03-20-2024 Patient encounter procedure 03/20/2024 2:40 PM EDT Appointment [facility] [address] [place] [address] screening mammo [facility] Comment on above: screening mammo Start: 03-14-2024 End: 06-13-2024 Follitropin [Units/volume] in Serum or Plasma [facility] Comment on above: Expected: 03/14/2024 , Expires: 06/13/2024 Start: 03-14-2024 End: 06-13-2024 Lutropin [Units/volume] in Serum or Plasma [facility] Comment on above: Expected: 03/14/2024 , Expires: 06/13/2024 Start: 03-14-2024 End: 06-13-2024 Thyrotropin [Units/volume] in Serum or Plasma [facility] Comment on above: Expected: 03/14/2024 , Expires: 06/13/2024 Start: 12-17-2023 Mammography [facility] Start: 12-17-2023 Screening for malign ant neoplasm of breast Mammogram Screening [facility] Start: 04-21-2023 Covid-19 Vaccine ( season) Covid-19 Vaccine ( season) [facility] Start: 04-21-2023 Influenza vaccination [facility] Start: 12-16-2022 Patient encounter procedure BRINDA Jiang Start: 06-10-2022 Hemoglobin A1c measurement HbA1C [facility] Start: 06-10-2022 Hemoglobin A1c/Hemoglobin.total in Blood HBA1C [facility] Start: 04-21-2022 Influenza vaccination INFLUENZA (#1) [facility] Start: 12-09-2021 End: 02-08-2022 Thyrotropin [Units/volume] in Serum or Plasma TSH BLD Lab Routine Acquired hypothyroidism Expected: 12/09/2021, Expires: 02/08/2022 [facility] Work Phone: Comment on above: Expected: 12/09/2021 , Expires: 02/08/2022 Start: 04-14-2021 Patient encounter procedure ANNUAL, Provider: Sharon Treadwell, Status: Pen, Time: 9:30 AM [facility] Cher[place] [address] M Work Phone: Start: 04-07-2021 PHYSICLPAP, Provider : Silvia Sánchez, Status: Pen, Time: 1:00 PM PHYSICLPAP, Provider: Silvia Sánchez, Status: Pen, Time: 1:00 PM [id number] [place] [address] M Work Phone: Start: 02-24-2021 COVID-19 VACCINE (2 - Moderna series) COVID-19 VACCINE (2 - Moderna series) [facility] Start: 01-27-2021 COVID-19 VACCINE (2 - Moderna 3-dose series) COVID-19 VACCINE (2 - Moderna 3-dose series) [facility] Start: 01-27-2021 COVID-19 VACCINE (2 - Moderna series) COVID-19 VACCINE (2 - Moderna series) [facility] Start: 08-08-2019 Glaucoma screening Dilated Retinal E xam [facility] Start: 08-08-2019 Hepatitis C antibody , confirmatory test DILATED RETINAL EXAM [facility] Start: 2019 Mammography MAMMOGRAM [facility] Start: 05-14-2019 MG Breast screening Mamm - Scr eening Mammogram [id number] [place] [address] M Work Phone: Start: 05-14-2019 Microscopic observat ion Cyto stain.thin prep Nom (Cvx) 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 [place] [address] M Work Phone: Start: 04-11-2019 Hepatitis B screening URINE ALBUMIN:CREATININE RATIO [facility] Start: 04-11-2019 Hepatitis B surface antibody level LDL Cholesterol [facility] Start: 03-08-2019 PAP TESTING PAP TESTING [facility] Start: 03-08-2019 Screening for malign ant neoplasm of cervix Pap Testing [facility] Start: 12-24-2018 Hemoglobin A1c/Hemoglobin.total in Blood HBA1C [facility] Start: 03-08-2017 Screening for malign ant neoplasm of cervix Cervical Cancer Screening [facility] Start: 03-28-2014 Hepatitis B surface antibody level LDL CHOLESTEROL [facility] Start: 2009 HPV TESTING HPV TESTING [facility] Start: 2009 Screening for malign ant neoplasm of cervix HPV Testing [facility] Start: 1998 HEPATITIS B (1 of 3 - Risk 3-dose series) HEPATITIS B (1 of 3 - Risk 3-dose series) [facility] Start: 1998 Hepatitis B Vaccine (1 of 3 - 19+ 3-dose series) Hepatitis B Vaccine (1 of 3 - 19+ 3-dose series) [facility] Start: 1998 Pneumococcal vaccination Pneumococcal Vaccine (1 of 2 - PCV) [facility] Start: 1998 Urine microalbumin profile [facility] Start: 1997 ANNUAL PCP TEAM PROGRAM SCHEDULE CLERK MEGHA DISEASE VISIT ANNUAL PCP TEAM CHRONIC DISEASE VISIT [facility] Start: 1997 Anxiety Screening Anxiety Screening [facility] Start: 1997 HEPATITIS C SCREENING HEPATITIS C [facility] Start: 1997 Hepatitis C screening Hepatitis C [facility] Start: 1997 HIV SCREENING HIV SCREENING [facility] Start: 1997 HIV screening HIV Screening [facility] Start: 1997 Spirometry Spirometry [facility] Start: 1995 ONE PNEUMOVAX PRIOR TO AGE 64 ONE PNEUMOVAX PRIOR TO AGE 64 [facility] Start: 1989 3 comp foot exam completed DIABETIC FOOT EXAM [facility] Start: 1989 Diabetic foot examination Diabetic Foot Exam [facility] Start: 1985 PNEUMOCOCCAL (1 - PCV) PNEUMOCOCCAL (1 - PCV) [facility] Start: 1985 Pneumococcal vaccination [facility] Start: 1979 HEPATITIS B (1 of 3 - 3-dose series) HEPATITIS B (1 of 3 - 3-dose series) [facility] Start: 1979 Hepatitis B Vaccine (1 of 3 - 3-dose series) Hepatitis B Vaccine (1 of 3 - 3-dose series) [facility] BACTERIAL VAGINOSIS NAAT BACTERIAL VAGINOSIS NAAT Lab Routine Acute vaginitis 03/14/2024 2:32 PM EDT [facility] Bilirubin measuremen t, urine [facility] TAMMIE/TRICHOMONAS NAAT TAMMIE/TRICHOMONAS NAAT Lab Routine Acute vaginitis 03/14/2024 2:32 PM EDT [facility] Chlamydia trachomatis+Neisseria gonorrhoeae DNA [Presence] in Unspecified specimen by SASHA with probe detection GONORRHEA/CHLAMYDIA NAAT Lab Routine Screen for STD (sexually transmitted disease) 03/14/2024 2:18 PM EDT [facility] COVID & INFLUENZA A/ B & RSV NAAT, ROUTINE COVID & INFLUENZA A/B & RSV NAAT, ROUTINE Microbiology Routine Sorethroat Ordered: 03/27/2024 [facility] Comment on above: Ordered: 03/27/2024 COVID & INFLUENZA A/ B & RSV PCR, ROUTINE COVID & INFLUENZA A/B & RSV PCR, ROUTINE Microbiology Routine Sore throat Upper respiratory tract infection, unspecified type 09/26/2024 12:06 PM EST [facility] Work Phone: DBT Breast - bilater al screening LINSEY SCREENING [place] Radiology Routine Encounter for screening mammogram for breast cancer 10/10/2024 1:36 PM EST [facility] Work Phone: Hemoglobin [Presence ] in Urine [facility] LUNG DIFFUSION CAPAC ITY (DLCO) LUNG DIFFUSION CAPACITY (DLCO) PFT Routine Mild intermittent asthma, uncomplicated 10/16/2024 1:02 PM EST [facility] Work Phone: LUNG VOLUMES LUNG VOLUMES PFT Routine Mild intermittent asthma, uncomplicated 10/16/2024 1:02 PM EST [facility] Work Phone: Measurement of keton es in urine using dipstick [facility] End: 04-13-2025 MG Breast Screening LINSEY SCREENING Radiology Routine Encounter for screening mammogram for malignant neoplasm of breast 1 Occurrences starting 03/14/2024 until 04/13/2025 [facility] Comment on above: 1 Occurrences starti ng 03/14/2024 until 04/13/2025 PAP TEST PAP TEST Lab Rou kylee Screening for cervical cancer Ordered: 03/14/2024 [facility] Work Phone: Comment on above: Ordered: 03/14/2024 Patient Education ED Heat Exhaustion [facility] Work Phone: Patient referral [facility] Work Phone: pH of Urine [facility] RAPID STREP TEST B/O RAPID STREP TEST B/O Lab Routine Sorethroat Ordered: 03/27/2024 [facility] Work Phone: Comment on above: Ordered: 03/27/2024 Specific gravity of Urine [facility] SPIROMETRY - BASELIN E AND POST DILATOR SPIROMETRY - BASELINE AND POST DILATOR PFT Routine Mild intermittent asthma, uncomplicated 10/16/2024 1:02 PM EST [facility] Work Phone: Urine culture [facility] Urine dipstick for glucose [facility] Urine dipstick for leukocyte esterase [facility] Urine dipstick for nitrite [facility] Urine dipstick for protein [facility] Urine examination [facility] Urobilinogen [Presen ce] in Urine [facility] End: 04-13-2025 US Pelvis transvaginal US FEMALE PELVIS TRANSVAG Radiology Routine Secondary amenorrhea 1 Occurrences starting 03/14/2024 until 04/13/2025 [facility] Comment on above: 1 Occurrences starti ng 03/14/2024 until 04/13/2025 XR Knee - bilateral AP XR KNEE S URVEY ARTHRITIS 1V AP BILATERAL Radiology Routine Bilateral primary osteoarthritis of knee Chronic pain of both knees 12/03/2024 12:51 PM EDT [facility] XR Knee - left AP an d Lateral and oblique XR KNEE INJURY 4V AP/LAT/OBLS LEFT Radiology Routine Bilateral primary osteoarthritis of knee Chronic pain of both knees 12/03/2024 12:51 PM EDT [facility] XR Knee - right AP a nd Lateral and oblique XR KNEE INJURY 4V AP/LAT/OBLS RIGHT Radiology Routine Bilateral primary osteoarthritis of knee Chronic pain of both knees 12/03/2024 12:51 PM EDT [facility] Work Phone: [facility] NEGATED: Highlighted row has been ruled out! Planned Goals not documented [id number] Cherise [id number] M Work Phone: Immunizations Immunization Date Immunization Notes Care Provider Fa cility 05-07-2021 influenza, injectabl e, quadrivalent, preservative free; Translations: [Flulaval Quadrivalent 0.5 ML Intramuscular Suspension Prefilled Syringe] Silvai Sánchez Work Phone: [id number] [address] Work Phone: Comment on above: Series: 05-07-2021 influenza virus vaccine, unspecified formulation Xr Commons [facility] 12-30-2020 Moderna COVID-19 Vaccine 100 MCG/0.5ML Intramuscular Suspension Silvia Sánchez Work Phone: [id number] [address] Work Phone: Comment on above: Series: 07-27-2018 influenza, injectabl e, quadrivalent, contains preservative Regan Stockert BULLET CASTING OPERATOR.COMMUNITY LIAISON Work Phone: [facility] 07-21-2014 influenza, seasonal, injectable, preservative free Regan Stockert BULLET CASTING OPERATOR.COMMUNITY LIAISON Work Phone: [facility] Payers Date Payer Category Payer Self-pay 2021 Unknown [id number] 2021 Unknown [id number] 2012 Medicaid [facility] [id number] 2012-Present [phone] [address] [place] [address] Medicaid [id number] 2012 Medicaid [id number] 2008 Unknown 1979 Unknown [id number] [id number] 1979 Unknown [id number] [id number] 1979 Unknown [id number] [id number]6 1979 Unknown [id number] 2..[id number] 1979 Unknown [id number] [id number] 1979 Unknown [id number] 2.16.840.1.358333.3.579.2.356 1979 Unknown [id number] 2..[id number] Medicaid [id number] Unknown [id number] 2.16.840.1.911055.3.579.2.243 Unknown [id number] [id number] Unknown [id number] 2.16.840.1.187332.3.579.2.462 Unknown [id number] 2.840.1.474875.3.579.2.462 Unknown [id number] [id number] Unknown [id number] [id number] Unknown [id number] 2.16840.1.775027.3.579.2.462 Unknown [id number] 2.16840.1.408233.3.579.2.462 Unknown [id number] 2.840.1.680688.3.579.2.462 Unknown [id number] [id number] Unknown [id number] [id number] Unknown [id number] [id number] Unknown [id number] [id number] Social History Date Type Detail Facility Start: 01-31-2011 End: 10-10-2024 Caffeine use Caffeine use [id number] Cherise [address] M Work Phone: Tobacco smoking consumption unknown [facility] Start: 01-31-2011 End: 04-04-2025 Tobacco smoking status NHIS Ex-smoker [facility] History of tobacco use Cigarette Smoker [facility] Start: 08-05-2021 End: 12-29-2021 Alcohol intake Current non-drinker of alcohol (finding) [facility] Start: 1980 Sex Assigned At Not on file [facility] Start: 05-25-2021 End: 12-29-2021 Exposure to SARS-CoV-2 (event) Not sure [facility] History of tobacco use Current smoker [facility] Work Phone: Start: 01-31-2011 End: 05-15-2024 Tobacco use and exposure Smokeless tobacco non-user [facility] Work Phone: Start: 01-24-2023 End: 10-10-2024 Area Deprivation Index [facility] National Score (1-100), lower number is lower risk 81 [facility] Tobacco smoking status No Smokin g Status Entered [facility] Start: 1980 Sex Assigned At Female A [facility] History of tobacco use Passive smoker [facility] Start: 08-04-2023 End: 01-10-2025 Alcohol intake Current drinker of alcohol (finding) [facility] Start: 08-04-2023 Alcohol Comment Occasional [facility] Start: 12-12-2024 End: 01-31-2025 Tobacco smoking status NHIS Never smoked tobacco (finding) [facility] Start: 12-12-2024 Sex Female (finding) [facility] NEGATED: Highlighted row - - [facility] [address] Work Phone: Functional Status Date Assessment Result Facility 06-28-2023 Functional Status Independent Amari amanricardo 06-28-2023 Functional Status Ambulation in Horn, Ambulation in Room [facility] 10-09-2014 Are you deaf, or do you have serious difficulty hearing No 10/09/2014 12:05 PM Wilma Spann MA No [facility] 10-09-2014 Are you blind, or do you have serious difficulty seeing, even when wearing glasses No 10/09/2014 12:05 PM Wilma Spann MA No [facility] 10-09-2014 Do you have serious difficulty walking or climbing stairs No 10/09/2014 12:05 PM Wilma Spann MA No [facility] 10-09-2014 Do you have difficul ty dressing or bathing No 10/09/2014 12:05 PM Wilma Spann MA No [facility] 10-09-2014 Because of a physica l, mental, or emotional condition, do you have difficulty doing errands alone such as visiting a physician's office or shopping No 10/09/2014 12:05 PM Wilma Spann MA No [facility] NEGATED: Highlighted row Functional performance Functional status health issues are not documented Disease [facility] 8152 Work Phone: Mental Status Date Assessment Result Facility 04-04-2025 Cognitive function Level Of Cons ciousness Awake;Alert;Appropriate ;Follows Commands [facility] Work Phone: 06-28-2023 Mental Status Orientation [facility] x 4 [facility] 06-28-[address] [facility] 10-09-2014 Because of a physical, mental, or emotional condition, do you have serious difficulty concentrating, remembering, or making decisions No 10/09/2014 12:05 PM Wilma Spann MA No [facility] NEGATED: Highlighted row Cognitive function [Interpretation] Cognitive status health issues are not documented Disease [facility] 7456 Work Phone: Clinical Notes 05-14-2019 to 04-04-2025 Note Date & Type Note Facility 04-04-2025 Discharge summary [facility] 04-04-2025 Discharge summary Note Date/Time April 04, 2025 3:54pm [facility] Medical Records Department [address] [place] [address] Emergency Department Summary 04/04/25 MR#: [id number] Acct: [id number] Name: JUDSON DE LA CRUZ Rep #:[id number] : 1980 44 From: Richy Contreras MD PCP: Comfort Clement NP-C Status:REG ER Location: ED HPI History of Present Illness Chief Complaint: Nausea/Vomiting/Diarrhea Detail of Chief Complaint: Patient is here because she was walking outside in the hot heat because she Informant: patient Onset/Context/Timing Onset: Today and Days (Patient had nausea vomiting diarrhea due to presumed bad food on Monday.) Context: Sudden Onset Timing: Continuous Quality: Fatigue, headache, thirsty sweating Location: Walking outside in the hot humid weather Current Severity: Mild Maximum Severity: Severe Worsened by: Exposure to heat Relieved by: Transportation by EMS to the emergency room which is much cooler Associated Symptoms Associated Symptoms: She also complains of some cramping. Narrative Narrative: Patient is a 44-year-old woman. She has history of diabetes, hypothyroidism, hypercholesterolemia, scoliosis and osteoarthritis. On Monday she had diarrhea and vomiting due to eating something did not taste normal. This was short-lived. Today she went to walk to [place] and got lost she said she walked [address] and then the other way and became fatigued with headache thirst andcramping in her muscles. She is not certain how long she was outside. She states she was sweating profusely. She denied chest pain or shortness of breath. She did complain nausea without vomiting or diarrhea. She has not urinated since this morning. She is on no psychotropic meds. Prior similar symptoms: No Recent Illness/Hospitalization: No PFSH PFSH Medical History Arthritis Scoliosis Hypercholesterolemia Hypothyroidism Diabetes Migraine Home Medications ?Medication ?Instructions ?Recorded ?Last Taken ?Type levothyroxine 100 mcg tablet 100 mcg PO QDAY 07/01/24 Unknown History metformin 500 mg tablet 500 mg PO QDAY 07/01/24 Unkn own History atorvastatin 40 mg tablet 40 mg PO DAILY 07/12/24 Unkn own History omega 4-wer-vzb-fish oil 100 2 cap PO DAILY 07/12/24 U nknown History mg-160 mg-1,000 mg capsule (Fish Oil) cyclobenzaprine 5 mg tablet 5 mg PO TID PRN muscle spa sm #9 12/12/24 Unknown Rx tabs ondansetron 4 mg disintegrating 4 mg PO Q6H PRN nausea and 12/12/24 Unknown Rx tablet vomiting #20 tabs meloxicam 15 mg tablet 15 mg PO QDAY 02/19/25 Unkno wn History Allergy/AdvReac Type Severity Reaction Status Date / Time acetaminophen (From Vicodin) Allergy Mild Nausea Verified 04/04/25 13:19 hydrocodone (From Vicodin) Allergy Mild Nausea Verified 04/04/25 13:19 Sulfa (Sulfonamide Allergy Mild Rash Verified 04/04/25 13:19 Antibiotics) Family History Mother Scoliosis Other Cancer Heart disease Hypertension Surgical History Hx of cholecystectomy Social History housing: homeless Smoking Status: Former smoker alcohol intake: never what type of physical activity do you participate in: walking do you feel safe at home: No (sometimes) ROS ROS ED Constitutional Constitutional ED: Denies chills, fever(s) or subjective Eyes Eyes: Denies blurry vision or change in vision ENT ENT ED: Denies ear pain, rhinorrhea or sore throat Cardiovascular Cardiovascular: Denies chest pain or palpitations Respiratory/Chest Respiratory/Chest: Denies cough, dyspnea or dyspnea on exertion Gastrointestinal Gastrointestinal: Reports nausea; Denies abdominal pain, diarrhea or vomiting Genitourinary Genitourinary ED: Denies dysuria, hematuria or urinary frequency Musculoskeletal Musculoskeletal: Denies arthralgias or myalgias Integumentary Denies rash Neurologic Neurologic: Reports headache(s) and weakness; Denies paresthesias Hematologic/Lymphatic Hematologic/Lymphatic: Reports systems reviewed and no addt'l complaints, exceptas documented EXAM Physical Exam Const Vital Signs: 04/04/25 13:18 04/04/25 14:08 04/04/25 14:27 Temperature 98.3 F Temperature Source Oral Pulse Rate 93 Pulse Rate [Lying] 75 Pulse Rate [Sitting (for 1 minute prior to obtaining)] 82 Pulse Rate [Standing (for 1 minute prior to obtaining)] 90 Respiratory Rate 16 Respiratory Effort Normal Non-Labored Respiratory Pattern Normal Blood Pressure 122/84 H Blood Pressure [Lying] 109/71 Blood Pressure [Sitting (for 1 minute prior to obtaining)] 112/72 Blood Pressure [Standing (for 1 minute prior to obtaining)] 113/74 Blood Pressure Mean 96 Blood Pressure Mean [Lying] 83 Blood Pressure Mean [Sitting (for 1 minute prior to obtaining)] 85 Blood Pressure Mean [Standing (for 1 minute prior to obtaining)] 87 Pulse Ox 97 Oxygen Delivery Method Room Air Positive well nourished and well developed Constitutional Narrative: Orthostatic vital signs are normal. Patient's clothes are wet from perspiration. BMI is 52.1. General Appearance ED: well developed; Negative for pallor HEENT Reports dry mucous membranes HEENT Narrative: Head is atraumatic normocephalic. Ears normal. Nares patent. Mouth ED: Yes dry mucous membranes Mouth: dry mucous membranes Eyes PERRL and EOMs intact bilaterally General Eye ED: Negative for pale conjunctiva or scleral icterus Neck no lymphadenopathy and supple Resp normal respiratory effort and clear to auscultation bilaterally Cardio regular rate, regular rhythm, S1 normal heart sound, S2 normal heart sound and no murmurs GI normal to inspection, nondistended, normoactive bowel sounds, non-tender, non-distended and no masses; Negative for hepatosplenomegaly Back/Spine no CVA tenderness Extremity normal to inspection General Extremety ED: Negative for edema or tenderness General Extremity: Negative for edema Neuro oriented x3, CN's II-XII intact bilaterally and no sensory deficits noted Sensorium / Orientation: alert Motor Exam: strength 5/5 throughout Psych Psych Narrative: Flat affect. Skin no rashes or lesions noted, no wounds and No skin turgor normal General Skin Exam: Negative for jaundice or pallor MDM MDM MDM Narrative Medical decision making narrative: Patient may have had mild dehydration with nausea vomiting diarrhea on Monday. The fact that she is out in the hot weather sweating with cramps exhaustion headache suspect she has heat exhaustion. Clinically she is dehydrated. She was given 1 L of normal saline wide open. She reports feeling better. Urine appears slightly concentrated. Since patient is symptoms have improved with fluids will discharge to home. She was instructed to have the hotweather for the next 24 hours. Increase her fluid intake. BMP was obtained assess renal function and glucose CO2 anion gap especially in light of her history of diabetes and recent GI symptoms with now heat exhaustion. History & Record Review Additional record(s) reviewed:: Prior outpatient record (Orthopedic office visitby Dr. Tony Tolbert for osteoarthritis of both knees. Urgent care visit authored by Andrea Wells for cellulitis) and Prior ED visit (ER visit for chest pain by Dr. Héctor Hwang) Lab Data Attestation: I reviewed the patient's lab results. Labs: Laboratory Results - last 24 hr 04/04/25 14:33 Sodium 140 Potassium 3.9 Chloride 104 Carbon Dioxide 22.4 Anion Gap 13 BUN 13 Creatinine 0.91 Estim Creat Clear Calc 85.66 Est GFR (MDRD) Non-Af 80 BUN/Creatinine Ratio 14.3 Glucose 103 H Calcium 9.9 Discharge Plan Triage Chief Complaint: Nausea/Vomiting/Diarrhea Other Complaint: Fatigue ED Provider: Richy Contreras Dx/Rx/DC Orders Clinical Impression: Heat exhaustion, Morbid obesity due to excess calories, Dehydration, mild, Type2 diabetes mellitus Instructions: ED Heat Exhaustion Prescriptions: No Action metformin 500 mg tablet 500 mg PO QDAY levothyroxine 100 mcg tablet 100 mcg PO QDAY meloxicam 15 mg tablet 15 mg PO QDAY cyclobenzaprine 5 mg tablet 5 mg PO TID PRN (Reason: muscle spasm) Qty: 9 0RF ondansetron 4 mg tablet,disintegrating 4 mg PO Q6H PRN (Reason: nausea and vomiting) Qty: 20 0RF atorvastatin 40 mg tablet 40 mg PO DAILY Fish Oil 100-160-1,000 mg capsule 2 cap PO DAILY Primary Care Provider: Comfort Clement NP Referrals: Comfort Clement NP, PROCESSING ARCHIVIST-C [Primary Care Provider] - As Needed Print Language: [place] Disposition Disposition: Home, Self Care What to do if you have Problems For any increased pain, shortness of breath, bleeding, nausea or vomiting, chestpain, or any unexpected problems, contact your Primary Care Provider. Call [facility] ([phone]) or report to the closest Emergency Room. Call 911 if necessary. 04/04/25 [id number] <Electronically signed by Richy Contreras MD> Cosigner Signature (if applicable): CC: KAREN-Pradeep Clement ~ Signed [facility] Work Phone: [phone]) 502-693507-15-2025 Telephone encounter Note* Telephone Encounter - Corazon Martin - 03/04/2025 10:58 AM EDT No Show Documentation Judson De La Cruz no showed for an appointment on 03/04/25 with Comfort Clement APRN.CNP at 10:20 am . She was scheduled for 3 month follow up chronic pain knees/back stomach. Patient called the call center and note was added to appointment that patient called at 10:27 am tosay she was not going to make it No show determined to be fault of patient: Yes This is the patients second no show in the last 12 months. Letter mailed : Yes Is this the Third or Fourth No Show? No Corazon Martin March 04, 2025 10:58 AM [facility]07-15-2025 Miscellaneous Notes* Telephone Encounter - Corazon Martin - 03/04/2025 10:58 AM EDT No Show Documentation Judson De La Cruz no showed for an appointment on 03/04/25 with Comfort Clement APRN.CNP at 10:20 am . She was scheduled for 3 month follow up chronic pain knees/back stomach. Patient called the call center and note was added to appointment that patient called at 10:27 am tosay she was not going to make it No show determined to be fault of patient: Yes This is the patients second no show in the last 12 months. Letter mailed : Yes Is this the Third or Fourth No Show? No Corazon Martin March 04, 2025 10:58 AM documented in [facility] NoteHNO ID: [id number] Author: LIZ VEE PT Service: ? Author Type: Physical Therapist Type: Progress Notes Filed: 02/25/2025 16:27 Note Text: Episode Visit Count: 5 Therapist That Will Accept/Oversee The Plan Of Care: Liz Vee Start of Care Date: 12/09/24 Onset Date: (since my late teens and 20s) Plan of Care Certification Date: 02/25/25 Next Certification Due Date: 02/25/25 [facility] PHYSICAL THERAPY DISCONTINUANCE OF CARE PLAN OF CARE UPDATE: Assessment: Judson De La Cruz is discontinued from Physical Therapy services due to maximal benefit. and Patient/Client declining further intervention.. Patient was seen for 5 visits from Start of Care Date: 12/09/24 to 02/25/2025 and treatment included: Therapeutic exercise, Manual therapy, and Self-senior care management. Goals for Episode of Care: established 12/09/24 Goals updated on 01/09/2025. Goals updated on 02/25/2025. Independent in home exercises. -- MET Patient will decrease pain to 3-4/10 with functional activities to allow patient to improve ambulation, transfers, and standing tolerance for ADLs. -- NOT MET Restore pain-free lumbar ROM to moderate to minimal limitation without radiating symptoms to allow for transitional movements. -- NOT MET Stand / Walk 45 min to 1 hour without increased pain/symptoms. -- NOT MET Sit 1-2 hours without pain/symptoms to allow for seated activities. -- MET Patient will be able to tolerate functional activities for 1.5 to 2 hours without increased symptoms. -- NOT MET Patient Goals: reduce R LBP and R hip pain -- NOT MET SUBJECTIVE: Pt. reports that she walked a half mile to therapy. Comes to PT in a w/c and requires PT to wheel her back to the treatment room. Pt. will not be abl to make her last visit next week. Pt. has not been doing her HEP. Agrees to discharge. She only wants DN and says the exercise just makes things worse.. Patient Goals: reduce R LBP and R hip pain Functional Limitations: walking, cleaning, dressing, grooming, sleeping, weight bearing, sitting Pain: Pain Pain Level: 8 Pain Location: Low Back/Lumbar Spine - Right, Buttocks - Right Description: Aching Frequency: Standing, Walking Pain Level 2: 8 Pain Location 2: Knee - Right Description 2: Aching Frequency 2: Walking Post Treatment Pain Post Treatment Pain Level: No Change Post Treatment Pain Location: Low Back/Lumbar Spine - Right PROMIS Scales 01/28/2025 12/09/2024 11/15/2023 Higher is Better Phys Func - T Score 35 (moderate dysfunction) 36 (moderate dysfunction) Phys Func - Percentile 7 8 Self-Eff Symptom - T Score 43 (Average) 43 (Average) 35 (Low) Self-Eff Symptom - Percentile 24 24 7 Proxy-reported 12/09/2024 11/15/2023 Lower is Better Pain Interference - T Score 75 (severe) 67 (moderate) Pain Interference - Percentile 1 4 Proxy-reported T-scores: mean of general population = 50. 5 points is clinically meaningfully difference Percentiles provide an indication of how the patient's score ranks in relation to the general population. Higher percentile rankings indicate better function/quality of life. 50th percentile is the average of the general population and indicates half of respondents had a worse score. OBJECTIVE MEASURES WITH LEVEL OF FUNCTION: Lumbar Spine AROM Lumbar Flexion: Normal Lumbar Extension: Major limitation TREATMENT: Therapeutic Exercise: 1: sit <> stand 1x3 2: prone 3 min lay - Pt. reports that it is easing up 3: CLIFFORD 3 min 4: prone press ups 3x5 5: seated TA activation 2x10 6: prone HS curls 2x10 each side 7: seated glute squeezes 10x Skilled Intervention: Patient was educated in proper exercise technique and purpose for exercises. Skilled judgment was used in selection of appropriate interventions. Correct performance of therapeutic exercises was facilitated with verbal and visual cuing. Educated patient on rationale for performing exercises in regards to decreasing fatigue , increase ease of ADL, and ROM and function . Patient education as noted. Self-Correction Management: 1: encouraged pt. to attempt to self manage her symptoms with HEP 2: discussed that symptoms seem to improve with laying prone- this can be a method that is not too strenuous for pt. to self manage symptoms and get relief 3: discussed that DN on its own is not effective. this intervention must be combined with exercise to be most effective. If pt. is unable to tolerate any low intensity exercise or not compliant with HEP then we will dc at this time. Skilled Intervention: Skilled judgment in the selection of proper modification for activity of daily living/home management based on clinical presentation, deficits, and needs. Reviewed patient specific diagnosis in relation to activities of daily living/home management. Activity progression based on professional judgement. Moderate verbal cues for maintaining neutral spine al (more content not included)...[facility]07-08-2025 History of Present illness Narrative* Liz Vee, PT - 02/25/2025 3:02 PM EDT Images from the original note were not included. Episode Visit Count: 5 Therapist That Will Accept/Oversee The Plan Of Care: Liz Vee Start of Care Date: 12/09/24 Onset Date: (since my late teens and 20s) Plan of Care Certification Date: 02/25/25 Next Certification Due Date: 02/25/25 REHABILITATION AND SPORTS THERAPY PHYSICAL THERAPY DISCONTINUANCE OF CARE PLAN OF CARE UPDATE: Assessment: Judson De La Cruz is discontinued from Physical Therapy services due to maximal benefit. and Patient/Client declining further intervention.. Patient was seen for 5 visits from Start of Care Date: 12/09/24 to 02/25/2025 and treatment included: Therapeutic exercise, Manual therapy, and Self-senior care management. Goals for Episode of Care: established 12/09/24 Goals updated on 01/09/2025. Goals updated on 02/25/2025. Independent in home exercises. -- MET Patient will decrease pain to 3-4/10 with functional activities to allow patient to improve ambulation, transfers, and standing tolerance for ADLs. -- NOT MET Restore pain-free lumbar ROM to moderate to minimal limitation without radiating symptoms to allow for transitional movements. -- NOT MET Stand / Walk 45 min to 1 hour without increased pain/symptoms. -- NOT MET Sit 1-2 hours without pain/symptoms to allow for seated activities. -- MET Patient will be able to tolerate functional activities for 1.5 to 2 hours without increased symptoms. -- NOT MET Patient Goals: reduce R LBP and R hip pain -- NOT MET SUBJECTIVE: Pt. reports that she walked a half mile to therapy. Comes to PT in a w/c and requires PT to wheel her back to the treatment room. Pt. will not be abl to make her last visit next week. Pt.has not been doing her HEP. Agrees to discharge. She only wants DN and says the exercise just makesthings worse.. Patient Goals: reduce R LBP and R hip pain Functional Limitations: walking, cleaning, dressing, grooming, sleeping, weight bearing, sitting Pain: Pain Pain Level: 8 Pain Location: Low Back/Lumbar Spine - Right, Buttocks - Right Description: Aching Frequency: Standing, Walking Pain Level 2: 8 Pain Location 2: Knee - Right Description 2: Aching Frequency 2: Walking Post Treatment Pain Post Treatment Pain Level: No Change Post Treatment Pain Location: Low Back/Lumbar Spine - Right PROMIS Scales 01/28/2025 12/09/2024 11/15/2023 Higher is Better Phys Func - T Score 35 (moderate dysfunction) 36 (moderate dysfunction) Phys Func - Percentile 7 8 Self-Eff Symptom - T Score 43 (Average) 43 (Average) 35 (Low) Self-Eff Symptom - Percentile 24 24 7 Proxy-reported 12/09/2024 11/15/2023 Lower is Better Pain Interference - T Score 75 (severe) 67 (moderate) Pain Interference - Percentile 1 4 Proxy-reported T-scores: mean of general population = 50. 5 points is clinically meaningfully difference Percentiles provide an indication of how the patient's score ranks in relation to the general population. Higher percentile rankings indicate better function/quality of life. 50th percentile is the average of the general population and indicates half of respondents had a worse score. OBJECTIVE MEASURES WITH LEVEL OF FUNCTION: Lumbar Spine AROM Lumbar Flexion: Normal Lumbar Extension: Major limitation TREATMENT: Therapeutic Exercise: 1: sit <> stand 1x3 2: prone 3 min lay - Pt. reports that it is easing up 3: CLIFFORD 3 min 4: prone press ups 3x5 5: seated TA activation 2x10 6: prone HS curls 2x10 each side 7: seated glute squeezes 10x Skilled Intervention: Patient was educated in proper exercise technique and purpose for exercises. Skilled judgment was used in selection of appropriate interventions. Correct performance of therapeutic exercises was facilitated with verbal and visual cuing. Educated patient on rationale for performing exercises in regards to decreasing fatigue , increase ease of ADL, and ROM and function . Patient education as noted. Self-Correction Management: 1: encouraged pt. to attempt to self manage her symptoms with HEP 2: discussed that symptoms seem to improve with laying prone- this can be a method that is not too strenuous for pt. to self manage symptoms and get relief 3: discussed that DN on its own is not effective. this intervention must be combined with exercise to be most effective. If pt. is unable to tolerate any low intensity exercise or not compliant with HEP then we will dc at this time. Skilled Intervention: Skilled judgment in the selection of proper modification for activity of daily living/home management based on clinical presentation, deficits, and needs. Reviewed patient specific diagnosis in relation to activities of daily living/home management. Activity progression based on professional judgement. Moderate verbal cues for maintaining neutral spine alignment. Billing Therapeutic Exercise Treatment Minutes: 24 Self-Care/Home Management Treatment Minutes: 5 Skilled Treatment Time Minutes (timed and untimed codes): 29 Total Session Time (minutes): 29 Session Start Time : 1501 Session Stop Time : 1530 Liz Vee PT documented in this encounterLouis [facility] Telephone encounter Note * Telephone Encounter - Carmella Palencia MA - 02/24/2025 11:53 AM EDT pharmacy electronically requesting refills as follows: Last seen 12/03/24 . Last refill all 10/02/24 . Requested Prescriptions Pending Prescriptions Disp Refills meloxicam (MOBIC) 15 mg tablet [Pharmacy Med Name: Meloxicam 15MG TABS] 28 tablet Sig: TAKE 1 TABLET BY MOUTH DAILY metFORMIN (GLUCOPHAGE) 500 mg tablet [Pharmacy Med Name: metFORMIN HCl 500MG TABS*] 56 tablet Sig: TAKE 1 TABLET BY MOUTH TWICE A DAY cyanocobalamin (VITAMIN B-12) 500 mcg tablet [Pharmacy Med Name: Vitamin B-12 500MCG TABS] 28 tablet Sig: TAKE 1 TABLET BY MOUTH DAILY Please review and advise. Carmella Palencia MA [facility]07-07[facility] Miscellaneous Notes* Telephone Encounter - Carmella Palencia MA - 02/24/2025 11:53 AM EDT pharmacy electronically requesting refills as follows: Last seen 12/03/24 . Last refill all 10/02/24 . Requested Prescriptions Pending Prescriptions Disp Refills meloxicam (MOBIC) 15 mg tablet [Pharmacy Med Name: Meloxicam 15MG TABS] 28 tablet Sig: TAKE 1 TABLET BY MOUTH DAILY metFORMIN (GLUCOPHAGE) 500 mg tablet [Pharmacy Med Name: metFORMIN HCl 500MG TABS*] 56 tablet Sig: TAKE 1 TABLET BY MOUTH TWICE A DAY cyanocobalamin (VITAMIN B-12) 500 mcg tablet [Pharmacy Med Name: Vitamin B-12 500MCG TABS] 28 tablet Sig: TAKE 1 TABLET BY MOUTH DAILY Please review and advise. Carmella Palencia MA documented in this encounterLouis [facility]06-[facility] Telephone encounter Note * Telephone Encounter - Sebastian Bansal MA - 02/17/2025 9:44 AM EDT Patient notified. Sebastian Bansal MA [facility]06[facility]30[facility] Miscellaneous Notes* Telephone Encounter - Sebastian Bansal MA - 02/17/2025 9:44 AM EDT Patient notified. Sebastian Bansal MA * Telephone Encounter - Comfort Clement APRN.CNP - 02/17/2025 9:28 AM EDT She was referred to see orthopedics I would recommend scheduling She is already active with PT Comfort Clement APRN.CNP * Telephone Encounter - Sebastian Bansal MA - 02/17/2025 9:04 AM EDT Patient notified and wants to know what she can take for her knee pain. She states the lidocaine doesn't work that well. Please advise. Sebastian Bansal MA * Telephone Encounter - Comfort Clement APRN.CNP - 02/14/2025 12:30 PM EDT Liver enzymes were slightly elevated I would prefer she try to not take it everyday if possible Comfort Clement APRN.CNP * Telephone Encounter - Carmella Palencia MA - 02/13/2025 9:59 AM EDT Patient left message wanting to know if her acetaminophen could be sent in for twice daily instead of as needed so it can be in her bubble pack as she is taking it every morning and evening. Would like sent to [facility]. Please advise. Carmella Palencia MA documented in this encounterLouis [facility]06-30-[facility] Telephone encounter Note * Telephone Encounter - Comfort Clement APRN.CNP - 02/17/2025 9:28 AM EDT She was referred to see orthopedics I would recommend scheduling She is already active with PT Comfort Clement APRN.CNP [facility]06-30[facility] Telephone encounter Note* Telephone Encounter - Sebastian Bansal MA - 02/17/2025 9:04 AM EDT Patient notified and wants to know what she can take for her knee pain. She states the lidocaine doesn't work that well. Please advise. Sebastian Bansal MA [facility]06-27-[facility] Telephone encounter Note* Telephone Encounter - Comfort Clement APRN.CNP - 02/14/2025 12:30 PM EDT Liver enzymes were slightly elevated I would prefer she try to not take it everyday if possible Comfort Clement APRN.CNP [facility]06-26-2025 Telephone encounter Note* Telephone Encounter - Carmella Palencia MA - 02/13/2025 9:59 AM EDT Patient left message wanting to know if her acetaminophen could be sent in for twice daily instead of as needed so it can be in her bubble pack as she is taking it every morning and evening. Would like sent to [facility]. Please advise. Carmella Palencia MA [facility]06-[facility] Telephone encounter Note* Telephone Encounter - Honey Patel Izabela - 02/07/2025 2:51 PM EDT No Show Documentation Judson De La Cruz no showed for an appointment on 02/07/25 with Nunu Mckenzie APRN.COMMUNITY LIAISON at 1;20 pm. She was scheduled for constipation. I called and spoke with the patient regarding her missed appointment. Judson stated the reason that she missed her appointment was because forgot about appointment . Resources discussed/offered to patient: offered to reschedule. No show determined to be fault of patient: Yes This is the patients first no show in the last 12 months. Patient was rescheduled for pt said she will call back due to she was out doing stuff. Letter sent through [employer]. Is this the Third or Fourth No Show? No Honey Izabela Patel February 07, 2025 2:52 PM [facility]06-20-20[facility] Miscellaneous Notes* Telephone Encounter - Patel Honey Izabela - 02/07/2025 2:51 PM EDT No Show Documentation Judson Albrecht De La Cruz no showed for an appointment on 02/07/25 with Nunu Mckenzie APRN.COMMUNITY LIAISON at 1;20 pm. She was scheduled for constipation. I called and spoke with the patient regarding her missed appointment. Judson stated the reason that she missed her appointment was because forgot about appointment . Resources discussed/offered to patient: offered to reschedule. No show determined to be fault of patient: Yes This is the patients first no show in the last 12 months. Patient was rescheduled for pt said she will call back due to she was out doing stuff. Letter sent through [employer]. Is this the Third or Fourth No Show? No Honey Patel February 07, 2025 2:52 PM documented in this encounterLouis [facility]06-[facility] Evaluation note* Diagnosis Onset Date Resolution Status Admit Date Cellulitis of right abdomina l wall acute January 31, 2025 12:09pm [facility] Work Phone: 1(553) 790-308006-13-2025 Evaluation note* Diagnosis Onset Date Resolution Status Admit Date Cellulitis of right abdomina l wall acute January 31, 2025 12:09pm Bilateral primary osteoarthr itis of knee acute February 19, 2025 1 2:45pm Morbid obesity due to excess calories acute February 19, 2025 1 2:45pm [facility] Work Phone: 1(764) 232-500606-10-2025 NoteHNO ID: [id number] Author: LIZ VEE, PT Service: ? Author Type: Physical Therapist Type: Progress Notes Filed: 01/28/2025 14:51 Note Text: Episode Visit Count: 4 Therapist That Will Accept/Oversee The Plan Of Care: Liz Vee Start of Care Date: 12/09/24 Onset Date: (since my late teens and 20s) Plan of Care Certification Date: 12/09/24 Next Certification Due Date: 02/06/25 REHABILITATION AND SPORTS THERAPY PHYSICAL THERAPY TREATMENT NOTE ASSESSMENT: Judson De La Cruz tolerated the session with fatigue. She demonstrated difficulty with all exercises but reported feeling that symptoms eased somewhat with prone position. The patient will continue to benefit from ongoing skilled physical therapy to progress toward set goals. Planned Treatment Interventions: Therapeutic exercise (84534), Neuromuscular re-education (26235), Manual therapy (24700), Therapeutic activities (68314), Self-senior care management (23245), Gait Training (38780) PLAN FOR NEXT VISIT: DN and some core stabilization strengthening SUBJECTIVE: Pt. reports her back and knees are really bad. Pt. has been too busy to do her exercises. Patient Goals: reduce R LBP and R hip pain Functional Limitations: walking, cleaning, dressing, grooming, sleeping, weight bearing, sitting Pain: Pain Pain Level: 8 Pain Location: Low Back/Lumbar Spine - Right, Buttocks - Right Description: Aching Frequency: Standing, Walking Pain Level 2: 8 Pain Location 2: Knee - Right Description 2: Aching Frequency 2: Walking Post Treatment Pain Post Treatment Pain Location: Low Back/Lumbar Spine - Right OBJECTIVE MEASURES WITH LEVEL OF FUNCTION: TREATMENT: Therapeutic Exercise: 1: scifit stepper, seat 10, level 0, 1:1 throughout, 5 min, subjective collected 2: prone 3 min lay - pt. states that laying prone feels best but then complains of pain in this position. Doesn't states whether prone or sitting up is worse/better 3: CLIFFORD 3 min 4: prone HS curls 2x10 5: prone glute sets 2x10 6: prone hip ER 2x5, 5 sec hold 7: sit to stand 2x3 8: seated TA activation 2x10 Skilled Intervention: Patient was educated in proper exercise technique and purpose for exercises. Skilled judgment was used in selection of appropriate interventions. Provided written instruction for home exercise program to facilitate proper performance and compliance. Educated patient on rationale for performing exercises in regards to decreasing fatigue , increase ease of ADL, and ROM and function . Patient education as noted. Self-Correction Management: 1: suggested pt. do her exercises before and after bed to keep the HEP from interferring with her day 2: discussed how PT is trying to determine best position to try exercises - pain may not completely resolve but we want to avoid positions that pain becomes worse 3: discussed how DN must be paired with active exercise -- DN itself is not effective Skilled Intervention: Skilled judgment in the selection of proper modification for activity of daily living/home management based on clinical presentation, deficits, and needs. Reviewed patient specific diagnosis in relation to activities of daily living/home management. Activity progression based on professional judgement. Correct performance of home program was facilitated with verbal, visual, and tactile cueing. Billing Therapeutic Exercise Treatment Minutes: 30 Self-Care/Home Management Treatment Minutes: 8 Skilled Treatment Time Minutes (timed and untimed codes): 38 Total Session Time (minutes): 38 Session Start Time : 1413 Session Stop Time : 1451 Liz Vee, [facility]06-10-2025 History of Present illness Narrative* Liz Vee, PT - 01/28/2025 2:14 PM EDT Episode Visit Count: 4 Therapist That Will Accept/Oversee The Plan Of Care: Liz Vee Start of Care Date: 12/09/24 Onset Date: (since my late teens and 20s) Plan of Care Certification Date: 12/09/24 Next Certification Due Date: 02/06/25 REHABILITATION AND SPORTS THERAPY PHYSICAL THERAPY TREATMENT NOTE ASSESSMENT: Judson De La Cruz tolerated the session with fatigue. She demonstrated difficulty with all exercises but reported feeling that symptoms eased somewhat with prone position. The patient will continue to benefit from ongoing skilled physical therapy to progress toward set goals. Planned Treatment Interventions: Therapeutic exercise (10085), Neuromuscular re- education (58860), Manual therapy (71143), Therapeutic activities (70946), Self- senior care management (12855), Gait Training (66944) PLAN FOR NEXT VISIT: DN and some core stabilization strengthening SUBJECTIVE: Pt. reports her back and knees are really bad. Pt. has been too busy to do her exercises. Patient Goals: reduce R LBP and R hip pain Functional Limitations: walking, cleaning, dressing, grooming, sleeping, weight bearing, sitting Pain: Pain Pain Level: 8 Pain Location: Low Back/Lumbar Spine - Right, Buttocks - Right Description: Aching Frequency: Standing, Walking Pain Level 2: 8 Pain Location 2: Knee - Right Description 2: Aching Frequency 2: Walking Post Treatment Pain Post Treatment Pain Location: Low Back/Lumbar Spine - Right OBJECTIVE MEASURES WITH LEVEL OF FUNCTION: TREATMENT: Therapeutic Exercise: 1: scifit stepper, seat 10, level 0, 1:1 throughout, 5 min, subjective collected 2: prone 3 min lay - pt. states that laying prone feels best but then complains of pain in this position. Doesn't states whether prone or sitting up is worse/better 3: CLIFFORD 3 min 4: prone HS curls 2x10 5: prone glute sets 2x10 6: prone hip ER 2x5, 5 sec hold 7: sit to stand 2x3 8: seated TA activation 2x10 Skilled Intervention: Patient was educated in proper exercise technique and purpose for exercises. Skilled judgment was used in selection of appropriate interventions. Provided written instruction for home exercise program to facilitate proper performance and compliance. Educated patient on rationale for performing exercises in regards to decreasing fatigue , increase ease of ADL, and ROM and function . Patient education as noted. Self-Correction Management: 1: suggested pt. do her exercises before and after bed to keep the HEP from interferring with her day 2: discussed how PT is trying to determine best position to try exercises - pain may not completelyresolve but we want to avoid positions that pain becomes worse 3: discussed how DN must be paired with active exercise -- DN itself is not effective Skilled Intervention: Skilled judgment in the selection of proper modification for activity of daily living/home management based on clinical presentation, deficits, and needs. Reviewed patient specific diagnosis in relation to activities of daily living/home management. Activity progression based on professional judgement. Correct performance of home program was facilitated with verbal, visual, and tactile cueing. Billing Therapeutic Exercise Treatment Minutes: 30 Self-Care/Home Management Treatment Minutes: 8 Skilled Treatment Time Minutes (timed and untimed codes): 38 Total Session Time (minutes): 38 Session Start Time : 1413 Session Stop Time : 1451 Liz Vee PT documented in this encounterLouis [facility]06-[facility]-20[facility] Telephone encounter Note * Telephone Encounter - Sebastian Bansal MA - 01/21/2025 1:46 PM EDT Please help assist with scheduling appointment. [facility]06-03-2025 Miscellaneous Notes* Telephone Encounter - Sebastian Bansal MA - 01/21/2025 1:46 PM EDT Please help assist with scheduling appointment. * Telephone Encounter - Comfort Clement APRN.CNP - 01/21/2025 12:47 PM EDT Needs appointment - we need to look at it to determine what type of ointment to send. Comfort Clement APRN.CNP * Telephone Encounter - Emily Hicks MA - 01/21/2025 11:01 AM EDT Patient called she has an antibacterial infection between her toes with broken skin. She would likean ointment called into [facility] Emily Hicks MA documented in this encounterLouis Stokes [facility]06-03-2025 Telephone encounter Note * Telephone Encounter - Comfort Clement APRN.CNP - 01/21/2025 12:47 PM EDT Needs appointment - we need to look at it to determine what type of ointment to send. Comfort Clement APRN.CNP [facility]06-03-2025 Telephone encounter Note* Telephone Encounter - Emily Hicks MA - 01/21/2025 11:01 AM EDT Patient called she has an antibacterial infection between her toes with broken skin. She would likean ointment called into [facility] Emily Hicks MA [facility]05-26-2025 Telephone encounter Note* Telephone Encounter - Olya Hayden MA - 01/13/2025 3:16 PM EDT Patient given results and verbalized understanding of instructions given. Olya Hayden MA [facility]05-26-2025 Miscellaneous Notes* Telephone Encounter - Olya Hayden MA - 01/13/2025 3:16 PM EDT Patient given results and verbalized understanding of instructions given. Olya Hayden MA * Telephone Encounter - Olya Hayden MA - 01/12/2025 9:02 AM EDT Left message for patient to return call. Olya Hayden MA * Telephone Encounter - Smooth Reed APRN.CNP - 01/12/2025 8:07 AM EDT Please notify urine culture showed no clear infection. F/u with pcp for continued s/s for recheck. documented in this encounterLouis Stokes [facility]05-25-2025 Telephone encounter Note * Telephone Encounter - Olya Hayden MA - 01/12/2025 9:02 AM EDT Left message for patient to return call. Olya Hayden MA [facility]05-[facility] Telephone encounter Note* Telephone Encounter - Smooth Reed APRN.CNP - 01/12/2025 8:07 AM EDT Please notify urine culture showed no clear infection. F/u with pcp for continued s/s for recheck. [facility] Work Phone: 1(348) 163-969705-23-2025 NoteHNO ID: [id number] Author: ALEC ALEX APRN.STACEY Service: ? Author Type: Nurse Practitioner Type: Progress Notes Filed: 01/10/2025 10:52 Note Text: [facility] Subjective Judson De La Cruz is a 44 year old female. Patient presents with: UTI: Frequency, incontinence Diarrhea: With mixed constipation HPI Urinary Frequency: - Reports inability to hold urine, requiring immediate voiding. Bowel Movement Urgency: - Reports inability to hold bowel movements, requiring immediate defecation. - Bowel movements take 30-40 minutes if solid, causing hemorrhoidal bleeding. - Describes stool consistency as thick, like gummy. - Reports chronic abdominal discomfort, stating my bowels always feel, it always hurts. - Suspects IBS with constipation. - History of cystectomy in 2007. Review of Systems Gastrointestinal: (+) abdominal discomfort, (+) bowel urgency, (+) difficulty defecation, (+) constipation, (+) rectal bleeding Genitourinary: (+) urinary frequency, (+) urinary urgency, (+) urinary incontinence Musculoskeletal: (+) low back pain Objective BP 123/72 Pulse 79 Temp 36.3 ?C (97.3 ?F) Resp 18 Wt 105.6 kg (232 lb 12.9 oz) LMP 09/04/2023 (Approximate) SpO2 97% BMI 49.89 kg/m? Physical Exam General: No acute distress. CV: Heart sounds normal. Resp: Breath sounds normal. Back: No tenderness to percussion. Abd: Mild tenderness to palpation. {1. Urinary frequency (R35.0) - Urinalysis negative for infection; urine culture ordered to confirm. - No costovertebral angle tenderness on exam. - Follow-up with primary care physician for further evaluation. 2. Chronic constipation (K59.09) - Abdominal exam reveals mild tenderness, no acute findings. - Recommended follow-up with primary care physician for further evaluation and potential specialist referral. Due to patient saying she has inability to hold bowel and bladder but it has been going on for a long time and then patient saying the bowel movements take 30 to 40 minutes. Patient is just being referred to primary care for more thorough evaluation. UTI appears negative but will send for culture just to verify and Recording using ambient Away[employer] software for draft documentation of the visit was discussed with the patient/authorized retail customer service representative; all questions welcomed and answered. Patient/authorized retail customer service representative agreed to proceed [facility] NoteHNO ID: [id number] Author: LIZ VEE, PT Service: ? Author Type: Physical Therapist Type: Progress Notes Filed: 01/09/2025 09:39 Note Text: Episode Visit Count: 3 Therapist That Will Accept/Oversee The Plan Of Care: Liz Vee Start of Care Date: 12/09/24 Onset Date: (since my late teens and 20s) Plan of Care Certification Date: 12/09/24 Next Certification Due Date: 02/06/25 REHABILITATION AND SPORTS THERAPY PHYSICAL THERAPY PROGRESS REPORT PLAN OF CARE UPDATE: Assessment: Judson De La Cruz demonstrates no improvement in sitting, walking, sleeping, cleaning, cooking, dressing, grooming, and weight bearing. The patient has progressed toward goals. Patient continues to present with impairments in ADL's, gait, independence in exercise, overall function, patient reported outcome measures, posture, range of motion, strength, symptom management, and tissue tenderness that interfere with walking, cleaning, dressing, grooming, sleeping, weight bearing, sitting . Current prognosis is Fair due to: poor past response to therapy intervention, chronic nature of impairments, clinical presentation, multiple co- morbidities . The patient will benefit from continued skilled therapy services to meet the updated goals for this plan of care as noted below. Goals for Episode of Care: established 12/09/24 Goals updated on 01/09/2025. Independent in home exercises. -- MET Patient will decrease pain to 3-4/10 with functional activities to allow patient to improve ambulation, transfers, and standing tolerance for ADLs. -- NOT MET Restore pain-free lumbar ROM to moderate to minimal limitation without radiating symptoms to allow for transitional movements. -- NOT MET Stand / Walk 45 min to 1 hour without increased pain/symptoms. -- NOT MET Sit 1-2 hours without pain/symptoms to allow for seated activities. -- NOT MET Patient will be able to tolerate functional activities for 1.5 to 2 hours without increased symptoms. -- NOT MET Patient Goals: reduce R LBP and R hip pain -- NOT MET Time Frame for Goals and Treatment : 01/20/25 Patient Goals: reduce R LBP and R hip pain Planned Interventions, Frequency, and Duration: 1x/week, 6 weeks Total Number of Visits Planned: 6 Patient to be seen for Therapeutic exercise (43996), Neuromuscular re-education (95948), Manual therapy (12290), Therapeutic activities (37705), Self-senior care management (79928), Gait Training (67422) PLAN FOR NEXT VISIT: assess symptom response to DN. DC if pt. does not improve with HEP compliance SUBJECTIVE: Clipping her toe nails this morning caused 7/10 pain. Increased R knee pain today due to walking to [employer] from the bus, pt. describes the width of a plaza parking lot. Can sit only an hour or less. Cleaning and other ADLs still causing her much difficulty.. Patient Goals: reduce R LBP and R hip pain Functional Limitations: walking, cleaning, dressing, grooming, sleeping, weight bearing, sitting Pain: Pain Pain Level: 7 Pain Location: Low Back/Lumbar Spine - Right, Buttocks - Right Description: Aching Frequency: Standing, Walking Pain Level 2: 8 Pain Location 2: Knee - Right Description 2: Aching Frequency 2: Walking Post Treatment Pain Post Treatment Pain Location: Low Back/Lumbar Spine - Right PROMIS Scales 12/09/2024 11/15/2023 Higher is Better Phys Func - T Score 36 (moderate dysfunction) Phys Func - Percentile 8 Self-Eff Symptom - T Score 43 (Average) 35 (Low) Self-Eff Symptom - Percentile 24 7 Proxy-reported 12/09/2024 11/15/2023 Lower is Better Pain Interference - T Score 75 (severe) 67 (moderate) Pain Interference - Percentile 1 4 Proxy-reported T-scores: mean of general population = 50. 5 points is clinically meaningfully difference Percentiles provide an indication of how the patient's score ranks in relation to the general population. Higher percentile rankings indicate better function/quality of life. 50th percentile is the average of the general population and indicates half of respondents had a worse score. OBJECTIVE MEASURES WITH LEVEL OF FUNCTION: Lumbar Spine AROM Lumbar Flexion: Moderate limitation, Produces Lumbar Extension: Peripheralizing, Minimal limitation Lumbar R Side [place]: Major limitation Lumbar L Side [place]: Major limitation Lumbar R Side-Bend: Major limitation Lumbar L Side-Bend: Major limitation LE Strength R Hip Extension: 2-/5 R Hip Flexion (L2): 3-/5 R Hip ABduction: 2-/5 TREATMENT: Therapeutic Exercise: 1: scifit stepper, seat 10, level 0, 1:1 throughout, 5 min, subjective collected 2: lumbar flexion, ext, SB each side, SG each side 1x each 3: R single KTC 3x30 sec 4: hook lying PPT 3x10 5: supine B glute sets 1x5, 10 sec hold Skilled Intervention: Patient was educated in proper exercise technique and purpose for exercises. Skilled judgment was used in selection of appropriate interventions. Provid (more content not included)...[facility]05-[facility] Note HNO ID: [id number] Author: KIMBERLY MAHONEY PT Service: ? Author Type: Physical Therapist Type: Progress Notes Filed: 12/30/2024 13:32 Note Text: Episode Visit Count: 2 Therapist That Will Accept/Oversee The Plan Of Care: Liz Vee Start of Care Date: 12/09/24 Onset Date: (since my late teens and 20s) Plan of Care Certification Date: 12/09/24 Next Certification Due Date: 01/20/25 REHABILITATION AND SPORTS THERAPY PHYSICAL THERAPY TREATMENT NOTE ASSESSMENT: Judson De La Cruz tolerated the session with no issues. She demonstrated difficulty with standing, walking, and chores at home. The patient will continue to benefit from ongoing skilled physical therapy to progress toward set goals. PLAN FOR NEXT VISIT: Patient to follow back up with Sarah to resume plan of care, no speciality services needed for dry needling with myself. SUBJECTIVE: Patient reports that the Thurs after she was here last she had such bad back pain she went to the ED and was Hopped up on all kinds of stuff, I was so high. Patient reports sweeping, vaccuming, rising froma chair, bending and lifting all increase symptoms. Patient wants to try dry needling today, despite her fear of needles and hesitancy to perform intervention. Pain: Pain Pain Level: 5 Pain Location: Low Back/Lumbar Spine - Right, Buttocks - Right Description: Aching, Radiating Frequency: Standing, Walking OBJECTIVE MEASURES WITH LEVEL OF FUNCTION: Light tenderness to R L4-5 paraspinals upon palpation TREATMENT: Therapeutic Exercise: 1: *SKC 3x30 sec on R (used bed sheet and cued to allow knee to abduct a bit due to some groin pain) 2: *PPT 3x10, 3-5 sec holds 3: *Hooklying TA brace plus alt marching 3x10/side Skilled Intervention: Patient was educated in proper exercise technique and purpose for exercises. Skilled judgment was used in selection of appropriate interventions. Provided written instruction for home exercise program to facilitate proper performance and compliance. Correct performance of therapeutic exercises was facilitated with verbal, visual, and tactile cuing. Manual Therapy: 1: Light STM to R lumbar paraspinals with push to tolerance while also assessing tissue quality and patient tolerance/response to pressure Dry Needling: (1) 60 mm needle to R L4-5 paraspinals with light pistoning (Patient consent gained. 1 needle in, 1 needle out. Patient reports a light pain but no reproduction of symptoms and no symptom increase or decrease post intervention) Skilled Intervention: Manual skills to improve joint mobility, ROM, and decrease pain. Utilized anatomy knowledge of the clinician, and assessment of patient's response to intervention. Self-Correction Management: 1: Discussed, at length, dry needling explaining intervention, indications and contraindications for use 2: Discussed patients symptoms and reviewed prior imaging. 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 Reviewed patient specific diagnosis in relation to activities of daily living/home management. Activity progression based on professional judgement. Billing Therapeutic Exercise Treatment Minutes: 10 Manual TherapyTreatment Minutes: 15 Self-Care/Home Management Treatment Minutes: 30 Skilled Treatment Time Minutes (timed and untimed codes): 55 Total Session Time (minutes): 55 Session Start Time : 1130 Session Stop Time : 1225 Kimberly Mahoney, [facility]05-12-2025 History of Present illness Narrative* Kimberly Mahoney, PT - 12/30/2024 1:31 PM EDT Episode Visit Count: 2 Therapist That Will Accept/Oversee The Plan Of Care: Liz Vee Start of Care Date: 12/09/24 Onset Date: (since my late teens and 20s) Plan of Care Certification Date: 12/09/24 Next Certification Due Date: 01/20/25 REHABILITATION AND SPORTS THERAPY PHYSICAL THERAPY TREATMENT NOTE ASSESSMENT: Judson De La Cruz tolerated the session with no issues. She demonstrated difficulty with standing, walking, and chores at home. The patient will continue to benefit from ongoing skilled physical therapy to progress toward set goals. PLAN FOR NEXT VISIT: Patient to follow back up with Sarah to resume plan of care, no speciality services needed for dryneedling with myself. SUBJECTIVE: Patient reports that the Thurs after she was here last she had such bad back pain she went to the ED and was Hopped up on all kinds of stuff, I was so high. Patient reports sweeping, vaccuming, rising froma chair, bending and lifting all increase symptoms. Patient wants to try dry needling today, despite her fear of needles and hesitancy to perform intervention. Pain: Pain Pain Level: 5 Pain Location: Low Back/Lumbar Spine - Right, Buttocks - Right Description: Aching, Radiating Frequency: Standing, Walking OBJECTIVE MEASURES WITH LEVEL OF FUNCTION: Light tenderness to R L4-5 paraspinals upon palpation TREATMENT: Therapeutic Exercise: 1: *SKC 3x30 sec on R (used bed sheet and cued to allow knee to abduct a bit due to some groin pain) 2: *PPT 3x10, 3-5 sec holds 3: *Hooklying TA brace plus alt marching 3x10/side Skilled Intervention: Patient was educated in proper exercise technique and purpose for exercises. Skilled judgment was used in selection of appropriate interventions. Provided written instruction for home exercise program to facilitate proper performance and compliance. Correct performance of therapeutic exercises was facilitated with verbal, visual, and tactile cuing. Manual Therapy: 1: Light STM to R lumbar paraspinals with push to tolerance while also assessing tissue quality andpatient tolerance/response to pressure Dry Needling: (1) 60 mm needle to R L4-5 paraspinals with light pistoning (Patient consent gained. 1 needle in, 1 needle out. Patient reports a light pain but no reproduction of symptoms and no symptom increase or decrease post intervention) Skilled Intervention: Manual skills to improve joint mobility, ROM, and decrease pain. Utilized anatomy knowledge of the clinician, and assessment of patient's response to intervention. Self-Correction Management: 1: Discussed, at length, dry needling explaining intervention, indications and contraindications for use 2: Discussed patients symptoms and reviewed prior imaging. 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 Reviewed patient specific diagnosis in relation to activities of daily living/home management. Activity progression based on professional judgement. Billing Therapeutic Exercise Treatment Minutes: 10 Manual TherapyTreatment Minutes: 15 Self-Care/Home Management Treatment Minutes: 30 Skilled Treatment Time Minutes (timed and untimed codes): 55 Total Session Time (minutes): 55 Session Start Time : 1130 Session Stop Time : 1225 Kimberly Mahoney PT * Kimberly Mahoney, PT - 12/30/2024 12:06 PM EDT Program_ID:[id number] Access Code: [email or web address] URL: [email or web address] Date: 12-30-2024 Prepared By: Liz Vee Program Notes Exercises - Supine Posterior Pelvic Tilt - 1 x daily - 7 x weekly - 4 sets - 10 reps - Hooklying Single Knee to Chest - 1 x daily - 7 x weekly - 3 sets - 3 reps - Supine October - 1 x daily - 7 x weekly - 3 sets - 10 reps documented in this encounterLouis [facility] Telephone encounter Note * Telephone Encounter - Sebastian Bansal MA - 12/23/2024 9:35 AM EDT Aniyah from [facility]. Omer on requesting triamcinolone to be prn. If ok we can call her back [phone]. [facility]05-05-[facility]25 Miscellaneous Notes* Telephone Encounter - Sebastian Bansal MA - 12/23/2024 9:35 AM EDT Aniyah from [facility]. Lm on requesting triamcinolone to be prn. If ok we can call her back [phone]. documented in this encounterLouis [facility]04-24-2025 Discharge summary [facility] Medical Records Department [address] [place] [address] Emergency Department Summary 12/12/24 MR#: [id number] Acct: [id number] Name: JUDSON DE LA CRUZ Rep #:[id number] : 1980 44 From: Tha Causey DO PCP: Care Physician,No Primary Status :REG ER Location: ED HPI History of Present Illness Chief Complaint: Back Narrative Narrative: Patient is a 44-year-old female with past medical history of scoliosis, hypercholesteremia, hypothyroidism, diabetes, migraines, chronic back pain who presented to the emerged part with a chief complaint of back pain. Patient states that she is in pain management and went to physical therapy few days ago and notes that during her exercises her back started hurting her more. She states that she feels like the exercises exacerbate her pain. States that she is on some medications for her back painbut cannot specifically tell me what she is taking for this. Patient denies any new injuries or trauma. Patient denies any history of IV drug use, smoking or alcohol use. Patient states that she has been urinating more frequently with some pain with urination and notes that she is having normal bowel movements. Patient states that her back pain monet the right side and radiates down the back of her leg into her foot. [facility] Medical History Arthritis Scoliosis Hypercholesterolemia Hypothyroidism Diabetes Migraine Home Medications ?Medication ?Instructions ?Recorded ?Last Taken ?Type levothyroxine 100 mcg tablet 100 mcg PO QDAY 07/01/24 Unknown History metformin 500 mg tablet 500 mg PO QDAY 07/01/24 Unkn own History atorvastatin 40 mg tablet 40 mg PO DAILY 07/12/24 Unkn own History omega 2-yxf-agw-fish oil 100 2 cap PO DAILY 07/12/24 U nknown History mg-160 mg-1,000 mg capsule (Fish Oil) cephalexin 500 mg capsule 500 mg PO BID 5 days #10 cap s 12/12/24 Unknown Rx cyclobenzaprine 5 mg tablet 5 mg PO TID PRN muscle spa sm #9 12/12/24 Unknown Rx tabs ondansetron 4 mg disintegrating 4 mg PO Q6H PRN nausea and 12/12/24 Unknown Rx tablet vomiting #20 tabs oxycodone-acetaminophen 5 mg-325 1 tab PO Q6H PRN pain 2 days #8 12/12/24 Unknown Rx mg tablet (Endocet) tabs prednisone 5 mg tablets in a dose See Rx Instructions PO .COMPLEX 12/12/24 Unknown Rx pack #21 tabs Allergy/AdvReac Type Severity Reaction Status Date / Time acetaminophen (From Vicodin) Allergy Mild Nausea Verified 12/12/24 10:06 hydrocodone (From Vicodin) Allergy Mild Nausea Verified 12/12/24 10:06 Sulfa (Sulfonamide Allergy Mild Rash Verified 12/12/24 10:06 Antibiotics) Family History Mother Scoliosis Other Cancer Heart disease Hypertension Surgical History Hx of cholecystectomy Social History housing: homeless Smoking Status: Never smoker alcohol intake: never what type of physical activity do you participate in: walking do you feel safe at home: No (sometimes) ROS ROS ED ROS Narrative Constitutional: Denies fevers, chills, headaches Cardiovascular: Denies chest pain Respiratory: Denies shortness of breath Abdomen: Denies abdominal pain nausea, vomiting, diarrhea : Complains of urinary symptoms as noted above denies any hematuria Neurological: Denies numbness, weakness, tingling Musculoskeletal: Complains of back pain as noted above Skin: Denies any rashes or lesions EXAM Physical Exam Narrative Exam Narrative: General: Patient was lying in bed rest comfortably did not appear to be in acutedistress Head: Atraumatic, normocephalic Eyes: PERRL bilaterally, EOMI bilaterally, no conjunctival injection noted Neck: Soft, supple, trachea midline Cardiovascular: Regular rate and rhythm Abdomen: Soft, nondistended Extremities: +4/5 strength noted in the bilateral upper and lower extremities, no pedal edema on exam Neurological: Patient following commands knew that she was at [facility] year is 2024 no saddle anesthesia noted Skin: Warm, dry, intact no rashes lesions noted Const Vital Signs: 12/12/24 10:04 Temperature 97.9 F Temperature Source Oral Pulse Rate 76 Respiratory Rate 18 Blood Pressure 110/78 Blood Pressure Mean 88 Pulse Ox 99 Oxygen Delivery Method Room Air MDM MDM MDM Narrative Medical decision making narrative: Patient is a 44-year-old female who presented to the emergency department chief complaint of flare of her chronic back pain. On the differential diagnose includes but not limited to herniated disc, musculoskeletal strain, flare of herchronic back pain, UTI, pyelonephritis. Once workup is obtained and reviewed she will be reevaluated. Patient be given Toradol, Valium, prednisone. Reevaluation patient she is still having pain therefore she was given [place] and Zofran. Patient's urinalysis reviewed and showed 100 leukocyte esterase 5-10 white bloodcells with no bacteria seen however she is having urinary frequency with symptoms we will treat her with Keflex and this was sent for culture for her to follow-up on as well. Patient ambulated here in the emergency department to the bathroom by herself several times. On reevaluation the patient she is feeling better now and would like to go home. She was given prescription for cyclobenzaprine, Endocet, Zofran and prednisone. She is advised to rotate Tylenol and IProfen [id number] as well and use the narcotic for severe pain. She is advised not operating thing in the influence of the narcotic. She is advised to follow-up with her primary care physician in the outpatient setting as well and return with worsening symptoms or concerns. She is agreeable to plan all course concerns answered she was discharged home in stable condition. Lab Data Labs: Laboratory Results - last 24 hr 12/12/24 11:11 Urine Color Yellow Urine Clarity Clear Urine pH 8.0 Ur Specific [place] 1.010 Urine Protein Negative Urine Glucose (UA) Normal Urine Ketones Negative Urine Occult Blood Negative Urine Nitrite Negative Urine Bilirubin Negative Urine Urobilinogen Normal Ur Leukocyte Esterase 100 H Urine RBC 0 SEEN Urine WBC 5-10 SEEN Ur Squamous Epith Cells 5-10 SEEN Urine Bacteria 0 SEEN Urine Mucus 0 SEEN Discharge Plan Triage Chief Complaint: Back ED Provider: Tha Causey Dx/Rx/DC Orders Clinical Impression: Back pain Prescriptions: New cyclobenzaprine 5 mg tablet 5 mg PO TID PRN (Reason: muscle spasm) Qty: 9 0RF ondansetron 4 mg tablet,disintegrating 4 mg PO Q6H PRN (Reason: nausea and vomiting) Qty: 20 0RF oxycodone-acetaminophen [Endocet] 5-325 mg tablet 1 tab PO Q6H PRN (Reason: pain) 2 Days Qty: 8 0RF prednisone 5 mg tablets,dose pack See Rx Instructions .ROUTE .COMPLEX Qty: 21 0RF Rx Instructions: orally per package directions cephalexin 500 mg capsule 500 mg PO BID 5 Days Qty: 10 0RF No Action metformin 500 mg tablet 500 mg PO QDAY levothyroxine 100 mcg tablet 100 mcg PO QDAY atorvastatin 40 mg tablet 40 mg PO DAILY Fish Oil 100-160-1,000 mg capsule 2 cap PO DAILY Primary Care Provider: Care Physician,No Primary Referrals: Care Physician,No Primary [Primary Care Provider] - Liz Gates Pradeep, PROCESSING ARCHIVIST-C [[facility]] - Activity Restrictions/Additional Instructions: Rotate Tylenol and ibuprofen [id number] when you do this he can take something every 3 hours max dose Tylenol 4000 mg max dose of ibuprofen 3200 mg in 24 hours. Use the Percocet for severe paindo not operate anything under theinfluence this medication as this will make you sleepy and drowsy use Zofran with this as this will make you nauseous as well. Return with worsening symptoms or concerns. Take antibiotics as prescribed and follow-up and urine culture with your doctor. Print Language: [place] Disposition Disposition: Home, Self Care What to do if you have Problems For any increased pain, shortness of breath, bleeding, nausea or vomiting, chestpain, or any unexpected problems, contact your Primary Care Provider. Call [facility] ([phone]) or report tothe closest Emergency Room. Call 911 if necessary. 12/12/24 1308 Cosigner Signature (if applicable): CC: No Primary Care Physician ~ Signed [facility]04-23-2025 Telephone encounter Note* Telephone Encounter - Sebastian Bansal MA - 12/11/2024 1:50 PM EDT Patient notified. Sebastian Bansal MA [facility]04-23-2025 Miscellaneous Notes* Telephone Encounter - Sebastian Bansal MA - 12/11/2024 1:50 PM EDT Patient notified. Sebastian Bansal MA * Telephone Encounter - Comfort Clement APRN.STACEY - 12/11/2024 12:40 PM EDT We can monitor them every 3 months Comfort Clement APRN.STACEY * Telephone Encounter - Sebastian Bansal MA - 12/11/2024 9:42 AM EDT Patient notified and is seeing dr. Harris March 10. Patient is wondering if we can repeat the liver enzymes to see if they get worse. She was wondering when she should do this? Please advise. NEHA Miner * Telephone Encounter - Sebastian Bansal MA - 12/11/2024 9:01 AM EDT Another message left on patients voicemail to contact office and let us know if we can leave information on vm or check my chart message. Sebastian Bansal MA * Telephone Encounter - Emily Hicks MA - 12/09/2024 3:29 PM EDT Left a message for patient to call back Emily Hicks MA * Telephone Encounter - Comfort Clement APRN.CNP - 12/09/2024 3:16 PM EDT Mild elevated of liver enzymes GGT and ferritin are normal - these are liver markers Cholesterol panel shows LDL cholesterol is at goal, HDL is a little low at 39 - continue atorvastatin Knee x-rays - Right knee - moderate arthritis and bone spurs Left knee - mild arthritis and bone spurs I would like her to see an non destructive testing specialist - see referral to Dr Katerina Clement APRN.CNP documented in this encounterLouis [facility]04-23-2025 Telephone encounter Note * Telephone Encounter - Comfort Clement APRN.CNP - 12/11/2024 12:40 PM EDT We can monitor them every 3 months Comfort Clement APRN.CNP [facility]04-23-2025 Telephone encounter Note* Telephone Encounter - Sebastian Bansal MA - 12/11/2024 9:42 AM EDT Patient notified and is seeing dr. Harris March 10. Patient is wondering if we can repeat the liver enzymes to see if they get worse. She was wondering when she should do this? Please advise. NEHA Miner [facility]04-23-2025 Telephone encounter Note* Telephone Encounter - Sebastian Bansal MA - 12/11/2024 9:01 AM EDT Another message left on patients voicemail to contact office and let us know if we can leave information on vm or check my chart message. Sebastian Bansal MA [facility]04-21-2025 Telephone encounter Note* Telephone Encounter - Emily Hicks MA - 12/09/2024 3:29 PM EDT Left a message for patient to call back Emily Hicks MA [facility]04-21-2025 Telephone encounter Note* Telephone Encounter - Comfort Clement APRN.CNP - 12/09/2024 3:16 PM EDT Mild elevated of liver enzymes GGT and ferritin are normal - these are liver markers Cholesterol panel shows LDL cholesterol is at goal, HDL is a little low at 39 - continue atorvastatin Knee x-rays - Right knee - moderate arthritis and bone spurs Left knee - mild arthritis and bone spurs I would like her to see an non destructive testing specialist - see referral to Dr Katerina Clement APRN.COMMUNITY LIAISON [facility]04-21-2025 History of Present illness Narrative* Liz Vee, PT - 12/09/2024 11:07 AM EDT Program_ID:[id number] Access Code: [email or web address] URL: [email or web address] Date: 12-09-2024 Prepared By: Liz Vee Program Notes Exercises - Lying Prone - 2-3 x daily - 7 x weekly - 1 sets - reps - Static Prone on Elbows - 2-3 x daily - 7 x weekly - 1 sets - reps - Prone Push Ups on Forearms - 2-3 x daily - 7 x weekly - 2-3 sets - 5 reps - Supine Posterior Pelvic Tilt - 1 x daily - 7 x weekly - 4 sets - 10 reps * Liz Vee, PT - 12/09/2024 10:41 AM EDT Images from the original note were not included. Episode Visit Count: 1 Therapist That Will Accept/Oversee The Plan Of Care: Liz Vee Start of Care Date: 12/09/24 Onset Date: (since my late teens and 20s) Plan of Care Certification Date: 12/09/24 Next Certification Due Date: 01/20/25 Patient Identified by Name and Date of : Yes REHABILITATION AND SPORTS THERAPY PHYSICAL THERAPY EVALUATION PLAN OF CARE: Assessment: Judson De La Cruz presents with diagnosis of degeneration of intervertebral disc of lumbar region with discogenic back pain and lower extremity pain that interferes with walking, cleaning, dressing, grooming, sleeping, weight bearing, sitting . The patient presents with impairments in AD L's, balance, flexibility, gait, independence in exercise, joint mobility, overall function, patient reported outcome measures, posture, range of motion, strength, symptom management, and tissue tenderness. PROMIS (Patient-Reported Outcomes Measurement Information System) scores were reviewed and identified as a rehabilitation concern. Prognosis for therapy is Fair due to: poor past response to therapy intervention, chronic nature of impairments, clinical presentation, multiple co- morbidities . The patient will benefit from skilled therapy services to meet the goals established for this planof care as noted below. Classification Pain Mechanism Classification: Nociplastic/Central Low Back Pain Classification: Central Mechanism/Nociplastic Pain Goals for Episode of Care: established 12/09/24 Independent in home exercises. Patient will decrease pain to 3-4/10 with functional activities to allow patient to improve ambulation, transfers, and standing tolerance for ADLs. Restore pain-free lumbar ROM to moderate to minimal limitation without radiating symptoms to allow for transitional movements. Stand / Walk 45 min to 1 hour without increased pain/symptoms. Sit 1-2 hours without pain/symptoms to allow for seated activities. Patient will be able to tolerate functional activities for 1.5 to 2 hours without increased symptoms. Patient Goals: reduce R LBP and R hip pain Time Frame for Goals and Treatment : 01/20/25 Planned Interventions, Frequency, and Duration: Current Frequency: 1x/week Duration: 6 weeks Total Number of Visits Planned: 6 Planned Treatment Interventions: Therapeutic exercise (08487), Neuromuscular re- education (16502), Manual therapy (08005), Therapeutic activities (91979), Self- senior care management (50040), Gait Training (65036) PLAN FOR NEXT VISIT: assess symptom response to lumbar extension directional preference. Discuss dry needling-- pt. mentions at end of visit thats what she is supposed to have. Patient demonstrates good understanding of plan of care and treatment. The above goals and plan of care were discussed and agreed upon by patient/family. SUBJECTIVE: for LBP radiating into the R buttock. Pt. states I've tried everything. Stretching helps, but toomuch cleaning or walking causes increased symptoms. Pt. can get BLE numbness, R is worse than L. Nerve ablation about 5-6 years ago. R hip feels heavy like it's hard to move it. Pt. was homeless for 2.5 years and reports that not sleeping well, camping in the [place], and walking around was not good for her. Pt. has been at her current custodial for 4 mo. but complains that she is not able to continue to doing chores everyday. She did not clean her apartment when she had one. Pt. states shes hadevery kind of therapy and treatment and none of it helps. Pt. mentions having a learning disability. Patient Goals: reduce R LBP and R hip pain Functional Limitations: walking, cleaning, dressing, grooming, sleeping, weight bearing, sitting Prior Level of Function: Independent without limitations Relevant History Employment: Unemployed Home Environment Patient Lives With: [facility] (custodial) Intake Information: Prescription present Previous Treatment: Surgery , Heat , Ice , Injections , TENS Falls Interview: No positive findings with falls interview Red Flags Vertebral Fracture Red Flags: Female Vertebral Fracture Clinical Reasoning: Proceed with caution due to the above (1- 2) risk factors Abdominal Aortic Aneurysm Clinical Reasoning: No identified risk factors. Cancer Clinical Reasoning: No identified risk factors. Infection Clinical Reasoning: No identified risk factors. Cauda Equina Syndrome Clinical Reasoning: No identified risk factors. Red Flags - Cervical Cancer Clinical Reasoning: No identified risk factors. Infection Clinical Reasoning: No identified risk factors. Spine History Symptoms Location at Onset: Back Symptoms Since Onset: Worsening Pain is Better Always: (laying on the L side with the spine flexed) Sleeping Position: (can only lay on the L side, unable to lay on the R side) Pain: Pain Pain Level: 5 Pain Location: Low Back/Lumbar Spine - Right Description: Aching Frequency: Standing, Walking Additional Pain Information : Location 2 Pain Level 2: 6 Pain Location 2: Buttocks - Right Description 2: Aching Frequency 2: Standing, Walking Post Treatment Pain Post Treatment Pain Level: No Change Post Treatment Pain Location: Low Back/Lumbar Spine - Right Post Treatment Symptoms: symptoms radiate to the buttock upon sitting up Post Treatment Pain Score 2: No Change Post Treatment Pain Location 2: Buttocks - Right PROMIS Scales 12/09/2024 11/15/2023 Higher is Better Phys Func - T Score 36 (moderate dysfunction) Phys Func - Percentile 8 Self-Eff Symptom - T Score 43 (Average) 35 (Low) Self-Eff Symptom - Percentile 24 7 Proxy-reported 12/09/2024 11/15/2023 Lower is Better Pain Interference - T Score 75 (severe) 67 (moderate) Pain Interference - Percentile 1 4 Proxy-reported T-scores: mean of general population = 50. 5 points is clinically meaningfully difference Percentiles provide an indication of how the patient's score ranks in relation to the general population. Higher percentile rankings indicate better function/quality of life. 50th percentile is the average of the general population and indicates half of respondents had a worse score. OBJECTIVE MEASURES WITH LEVEL OF FUNCTION: Posture / Alignment Posture: Good Spine Observations R Lumbar Spine Palpation Tenderness: Gluteals L Lumbar Spine Palpation Tenderness: Gluteals Sensation - Lumbar Sensation: Grossly Intact Lumbar Spine AROM Lumbar Flexion: Normal, Produces, Peripheralizing Lumbar Extension: Centralizing, Moderate limitation LE Strength R Hip Extension: 2-/5 R Hip Flexion (L2): 2+/5 R Hip ABduction: 2-/5 Education: Education Learning Preferences: Demonstration, Explanation, Performance, Printed Materials Barriers: Low activity tolerance/endurance, Desire and Motivation, Emotions, Cognitive Limitations Learning/educational needs: Plan of Care, Home exercise program Education Provided: Yes, see treatment interventions for education provided Education Provided To: Patient Education Mode/Type: Demonstration, Explanation/Discussion, Literature/Printed Materials, Performance Response to Education/Teach Back: States/Identifies, Return Demonstration TREATMENT: PT Treatment Interventions: Therapeutic Exercise, Self-Correction Management Evaluation Therapeutic Exercise: 1: *Access Code: [email or web address] URL: [email or web address] Date: 12/09/2024 Prepared by: Liz Sadler Exercises - Lying Prone - 2-3 x daily - 7 x weekly - 1 sets - 3 min hold - StaticProne on Elbows - 2-3 x daily - 7 x weekly - 1 sets - 3 min duration - Prone Push Ups on Forearms -2-3 x daily - 7 x weekly - 2-3 sets - 5 reps - Supine Posterior Pelvic Tilt - 1 x daily - 7 x weekly - 4 sets - 10 reps Skilled Intervention: Patient was educated in proper exercise technique and purpose for exercises. Skilled judgment was used in selection of appropriate interventions. Provided written instruction for home exercise program to facilitate proper performance and compliance. Correct performance of therapeutic exercises was facilitated with verbal, visual, and tactile cuing. Educated patient on rationale for performing exercises in regards to decreasing fatigue , increase ease of ADL, and ROM and function . Patient education as noted. Self-Correction Management: 1: discussed directional preference 2: discussed centralization of symptoms as the desired response of HEP 3: discussed that asymmetries may be fixed but strengthening can help address pain and other symptoms that may be secondary or unrelated Skilled Intervention: Skilled judgment in the selection of proper modification for activity of daily living/home management based on clinical presentation, deficits, and needs. Provided written instruction for activities of daily living techniques to facilitate proper performance and compliance. Reviewed patient specific diagnosis in relation to activities of daily living/home management. Activity progression based on professional judgement. Moderate verbal cues for maintaining neutral spine alignment. Provided written instruction for home program to facilitate proper performance and compliance. Correct performance of home program was facilitated with verbal, visual, and tactile cueing. Billing * Evaluation Low Complexity: 1 Unit Therapeutic Exercise Treatment Minutes: 14 Self-Care/Home Management Treatment Minutes: 15 Skilled Treatment Time Minutes (timed and untimed codes): 49 Total Session Time (minutes): 49 Session Start Time : 1038 Session Stop Time : 1127 Liz Vee PT documented in this encounter[facility] NoteHNO ID: [id number] Author: LIZ VEE PT Service: ? Author Type: Physical Therapist Type: Progress Notes Filed: 12/09/2024 11:28 Note Text: Episode Visit Count: 1 Therapist That Will Accept/Oversee The Plan Of Care: Liz Vee Start of Care Date: 12/09/24 Onset Date: (since my late teens and 20s) Plan of Care Certification Date: 12/09/24 Next Certification Due Date: 01/20/25 Patient Identified by Name and Date of : Yes REHABILITATION AND SPORTS THERAPY PHYSICAL THERAPY EVALUATION PLAN OF CARE: Assessment: Judson De La Cruz presents with diagnosis of degeneration of intervertebral disc of lumbar region with discogenic back pain and lower extremity pain that interferes with walking, cleaning, dressing, grooming, sleeping, weight bearing, sitting . The patient presents with impairments in ADL's, balance, flexibility, gait, independence in exercise, joint mobility, overall function, patient reported outcome measures, posture, range of motion, strength, symptom management, and tissue tenderness. PROMIS? (Patient-Reported Outcomes Measurement Information System) scores were reviewed and identified as a rehabilitation concern. Prognosis for therapy is Fair due to: poor past response to therapy intervention, chronic nature of impairments, clinical presentation, multiple co- morbidities . The patient will benefit from skilled therapy services to meet the goals established for this plan of care as noted below. Classification Pain Mechanism Classification: Nociplastic/Central Low Back Pain Classification: Central Mechanism/Nociplastic Pain Goals for Episode of Care: established 12/09/24 Independent in home exercises. Patient will decrease pain to 3-4/10 with functional activities to allow patient to improve ambulation, transfers, and standing tolerance for ADLs. Restore pain-free lumbar ROM to moderate to minimal limitation without radiating symptoms to allow for transitional movements. Stand / Walk 45 min to 1 hour without increased pain/symptoms. Sit 1-2 hours without pain/symptoms to allow for seated activities. Patient will be able to tolerate functional activities for 1.5 to 2 hours without increased symptoms. Patient Goals: reduce R LBP and R hip pain Time Frame for Goals and Treatment : 01/20/25 Planned Interventions, Frequency, and Duration: Current Frequency: 1x/week Duration: 6 weeks Total Number of Visits Planned: 6 Planned Treatment Interventions: Therapeutic exercise (26824), Neuromuscular re-education (28859), Manual therapy (65107), Therapeutic activities (12505), Self-senior care management (63968), Gait Training (18324) PLAN FOR NEXT VISIT: assess symptom response to lumbar extension directional preference. Discuss dry needling-- pt. mentions at end of visit thats what she is supposed to have. Patient demonstrates good understanding of plan of care and treatment. The above goals and plan of care were discussed and agreed upon by patient/family. SUBJECTIVE: for LBP radiating into the R buttock. Pt. states I've tried everything. Stretching helps, but too much cleaning or walking causes increased symptoms. Pt. can get BLE numbness, R is worse than L. Nerve ablation about 5-6 years ago. R hip feels heavy like it's hard to move it. Pt. was homeless for 2.5 years and reports that not sleeping well, camping in the [place], and walking around was not good for her. Pt. has been at her current custodial for 4 mo. but complains that she is not able to continue to doing chores everyday. She did not clean her apartment when she had one. Pt. states shes had every kind of therapy and treatment and none of it helps. Pt. mentions having a learning disability. Patient Goals: reduce R LBP and R hip pain Functional Limitations: walking, cleaning, dressing, grooming, sleeping, weight bearing, sitting Prior Level of Function: Independent without limitations Relevant History Employment: Unemployed Home Environment Patient Lives With: [facility] (custodial) Intake Information: Prescription present Previous Treatment: Surgery , Heat , Ice , Injections , TENS Falls Interview: No positive findings with falls interview Red Flags Vertebral Fracture Red Flags: Female Vertebral Fracture Clinical Reasoning: Proceed with caution due to the above (1-2) risk factors Abdominal Aortic Aneurysm Clinical Reasoning: No identified risk factors. Cancer Clinical Reasoning: No identified risk factors. Infection Clinical Reasoning: No identified risk factors. Cauda Equina Syndrome Clinical Reasoning: No identified risk factors. Red Flags - Cervical Cancer Clinical Reasoning: No identified risk factors. Infection Clinical Reasoning: No identified risk factors. Spine History Symptoms Location at Onset: Back Symptoms Since Onset: Worsening Pain is Better Always: (laying on the L side with the spine flexed) Sleeping Position: (can only lay on the L (more content not included)... [facility]04-15-2025 History of Present illness Narrative* Nereida Rodarte, RT(R) - 12/03/2024 2:00 PM EDT Radiology Service Progress Note PATIENT NAME: Judson De La Cruz DATE OF SERVICE: December 03, 2024 TIME: 2:20 PM PATIENT IDENTITY VERIFICATION COMPLETED USING TWO (2) IDENTIFIERS: Name and Date of confirmedby patient verbally. FALL SCREENING: Has the patient had 2 falls in the last year or 1 fall with injury or currently using an Ambulatory Assistive Device (Walker, Cane, Wheelchair, Crutches, etc.)? No PATIENT GENDER DATA: Assigned female at . status: : No status:NO. PATIENT RELEVANT IMPLANT DATA REVIEWED: Not Applicable PATIENT PRESENTS WITH AN IMPLANTABLE OR ATTACHED EMBEDDED SOFTWARE DEVELOPMENT ENGINEER: No RADIOLOGY DEPARTMENT: General X-ray: Exam(s) Completed: Lower Extremity X- Ray(s): Knee, AP Only Bilateral, AP/LAT/OBLIQUE RIGHT/LEFT KNEES PERIPHERAL IV DATA: Not applicable SIGNED BY: RT Aguila(R) December 03, 2024 2:20 PM documented in this encounterLouis [facility]25 NoteHNO ID: [id number] Author: NEREIDA RODARTE RT(R) Service: ? Author Type: Technologist Type: Progress Notes Filed: 12/03/2024 14:21 Note Text: Radiology Service Progress Note PATIENT NAME: Judson De La Cruz DATE OF SERVICE: December 03, 2024 TIME: 2:20 PM PATIENT IDENTITY VERIFICATION COMPLETED USING TWO (2) IDENTIFIERS: Name and Date of confirmed by patient verbally. FALL SCREENING: Has the patient had 2 falls in the last year or 1 fall with injury or currently using an Ambulatory Assistive Device (Walker, Cane, Wheelchair, Crutches, etc.)? No PATIENT GENDER DATA: Assigned female at . status: : No status: NO. PATIENT RELEVANT IMPLANT DATA REVIEWED: Not Applicable PATIENT PRESENTS WITH AN IMPLANTABLE OR ATTACHED EMBEDDED SOFTWARE DEVELOPMENT ENGINEER: No RADIOLOGY DEPARTMENT: General X-ray: Exam(s) Completed: Lower Extremity X-Ray(s): Knee, AP Only Bilateral, AP/LAT/OBLIQUE RIGHT/LEFT KNEES PERIPHERAL IV DATA: Not applicable SIGNED BY: RT Aguila(R) December 03, 2024 2:20 [facility]04-15-2025 NoteHNO ID: [id number] Author: COMFORT CLEMENT APRN.[facility] Service: ? Author Type: Nurse Practitioner Type: Progress Notes Filed: 12/27/2024 08:35 Note Text: Subjective Judson De La Cruz is a 44 year old female with a history of chronic knee and back pain, presenting for follow-up on elevated liver enzymes and management of chronic pain. I reviewed past medical, surgical, social, and family histories today and updated chart. Allergies, chronic medications, and supplements were also reviewed. The patient consented to the use of ambient AI software for draft documentation of the visit consistent with [facility]?s Notice of Privacy Practices. JENNIFER Hdz reports persistent, debilitating pain in both knees and lower back, which she describes as chronic and constant. The pain is exacerbated by physical activity, such as walking, climbing stairs, and performing hurricane tracker, and is associated with cracking and popping sounds in the knees. She also experiences difficulty sleeping due to the pain and reports getting winded and experiencing dyspnea during activities. Judson has a history of significant arthritis in both knees, with a previous injury to the left knee resulting in torn ligaments, tendons, muscles, and cartilage. She has been told that her knees are bone on bone with no remaining cartilage. She has also been diagnosed with spondylolysis, spondylolisthesis, and degenerative disc disease in the lower back, confirmed by an x-ray in October 2023. Judson has tried various treatments for her pain, including physical therapy in 2022, which she could not continue due to severe pain, and six months of injections to kill the nerve endings for the sciatica, which were ineffective and painful. She has not had an MRI of her back but has had an MRI of her left knee. She has also tried CBD cream for her knee pain, which she found helpful, but is unable to purchase it due to restrictions in her current living situation. She has a low threshold for pain and is reluctant to undergo further injections, particularly in her knees, due to previous painful experiences. Judson reports significant stress related to her living situation, which involves frequent use of stairs and a noisy environment that disrupts her sleep. She is actively seeking alternative housing that is wheelchair and scooter accessible. She also reports difficulty with activities of daily living, such as showering and cleaning, due to her pain. She has been trying to lose weight and has made dietary changes, including smaller portions, cutting back on bread, and using a protein shake. She has lost a couple of pounds but finds it challenging due to the high-carb diet in her current living situation. She denies a history of liver issues but reports that her mother had a dark spot on her liver. 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 Hemorrhoids 03/18/2018 Herpes zoster 03/14/2024 Hyperlipidemia Hypothyroid 08/21/1998 Irregular menses Knee pain 03/14/2024 Comment on above: KNEE PAIN Major depressive disorder, recurrent, moderate (HCC) 05/23/2023 Muscle spasms of neck 03/14/2024 Muscle weakness 11/17/2023 Muscle weakness (generalized) 11/17/2023 Obesity Other intervertebral disc degeneration, lumbar region 11/03/2023 Other specified diseases of anus and rectum 09/04/2023 Pain in joint, multiple sites 11/17/2023 Pain in right hip 12/06/2022 Pain in unspecified joint 11/17/2023 Papanicolaou smear of cervix with atypical squamous cells cannot exclude high grade squamous intraepithelial lesion (ASC-H) 03/14/2024 Pleurodynia 07/10/2023 Polycystic disease, ovaries Radiculopathy, cervical region 11/03/2023 Rash 03/14/2024 Somatic dysfunction of cervical region 03/14/2024 Somatic dysfunction of head region 03/14/2024 Spasm of cervical paraspinous muscle 03/14/2024 Strain of hamstring muscle 03/14/2024 Tension type headache 03/14/2024 Type 2 diabetes mellitus without complications (HCC) 12/06/2022 Vaginal odor 03/14/2024 PAST SURGICAL HISTORY Procedure Laterality Date CHOLECYSTECTOMY ORAL SURGERY PROCEDURE all teeth pulled REMOVAL GALLBLADDER wisdom teeth ALLERGIES Adhesive Tape (Rosins), Adhesive Tape-Silicones, Cephalexin, Doxycycline, Hydrocodone-Acetaminophen, Hydrocodone-Guaifenesin, Sulfa (Sulfonamide Antibiotics), and Sulfamethoxazole MEDICATIONS diphenhydrAMINE (BENADRYL) 25 mg capsule Take 1 capsule by mouth every 6 hour (more content not included)...[facility]04-15-2025 History of Present illness Narrative* Comfort Clement APRN.COMMUNITY LIAISON - 12/03/2024 10:52 AM EDT Subjective Judson De La Cruz is a 44 year old female with a history of chronic knee and back pain, presenting for follow-up on elevated liver enzymes and management of chronic pain. I reviewed past medical, surgical, social, and family histories today and updated chart. Allergies, chronic medications, and supplements were also reviewed. The patient consented to the use of ambient [employer] software for draft documentation of the visit consistent with [facility] s Notice of Privacy Practices. JENNIFER Hdz reports persistent, debilitating pain in both knees and lower back, which she describes aschronic and constant. The pain is exacerbated by physical activity, such as walking, climbing stairs, and performing hurricane tracker, and is associated with cracking and popping sounds in the knees.She also experiences difficulty sleeping due to the pain and reports getting winded and experiencing dyspnea during activities. Judson has a history of significant arthritis in both knees, with a previous injury to the left knee resulting in torn ligaments, tendons, muscles, and cartilage. She has been told that her knees are bone on bone with no remaining cartilage. She has also been diagnosed with spondylolysis, spondylolisthesis, and degenerative disc disease in the lower back, confirmedby an x-ray in October 2023. Judson has tried various treatments for her pain, including physical therapy in 2022, which she could not continue due to severe pain, and six months of injections to kill the nerve endings for the sciatica, which were ineffective and painful. She has not had an MRI of her back but has had an MRI of her left knee. She has also tried CBD cream for her knee pain, which she found helpful, but isunable to purchase it due to restrictions in her current living situation. She has a low threshold for pain and is reluctant to undergo further injections, particularly in her knees, due to previous painful experiences. Judson reports significant stress related to her living situation, which involves frequent use ofstairs and a noisy environment that disrupts her sleep. She is actively seeking alternative housingthat is wheelchair and scooter accessible. She also reports difficulty with activities of daily living, such as showering and cleaning, due to her pain. She has been trying to lose weight and has made dietary changes, including smaller portions, cutting back on bread, and using a protein shake. Shehas lost a couple of pounds but finds it challenging due to the high-carb diet in her current living situation. She denies a history of liver issues but reports that her mother had a dark spot on her liver. 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 Hemorrhoids 03/18/2018 Herpes zoster 03/14/2024 Hyperlipidemia Hypothyroid 08/21/1998 Irregular menses Knee pain 03/14/2024 Comment on above: KNEE PAIN Major depressive disorder, recurrent, moderate (HCC) 05/23/2023 Muscle spasms of neck 03/14/2024 Muscle weakness 11/17/2023 Muscle weakness (generalized) 11/17/2023 Obesity Other intervertebral disc degeneration, lumbar region 11/03/2023 Other specified diseases of anus and rectum 09/04/2023 Pain in joint, multiple sites 11/17/2023 Pain in right hip 12/06/2022 Pain in unspecified joint 11/17/2023 Papanicolaou smear of cervix with atypical squamous cells cannot exclude high grade squamous intraepithelial lesion (ASC-H) 03/14/2024 Pleurodynia 07/10/2023 Polycystic disease, ovaries Radiculopathy, cervical region 11/03/2023 Rash 03/14/2024 Somatic dysfunction of cervical region 03/14/2024 Somatic dysfunction of head region 03/14/2024 Spasm of cervical paraspinous muscle 03/14/2024 Strain of hamstring muscle 03/14/2024 Tension type headache 03/14/2024 Type 2 diabetes mellitus without complications (HCC) 12/06/2022 Vaginal odor 03/14/2024 PAST SURGICAL HISTORY Procedure Laterality Date CHOLECYSTECTOMY ORAL SURGERY PROCEDURE all teeth pulled REMOVAL GALLBLADDER wisdom teeth ALLERGIES Adhesive Tape (Rosins), Adhesive Tape-Silicones, Cephalexin, Doxycycline, Hydrocodone-Acetaminophen, Hydrocodone-Guaifenesin, Sulfa (Sulfonamide Antibiotics), and Sulfamethoxazole MEDICATIONS diphenhydrAMINE (BENADRYL) 25 mg capsule Take 1 capsule by mouth every 6 hours as needed for cold/allergy symptoms. BONINE 25 mg chewable tablet(s) Take 25 mg by mouth three times a day as needed. omega-3 fatty acids/fish oil (FISH OIL-OMEGA-3 FATTY ACIDS) 300-1,000 mg cap cholecalciferol (VITAMIN D-3) 50 mcg (2,000 unit) tablet Take 2 tablets by mouth once daily. albuterol HFA (PROVENTIL HFA, VENTOLIN HFA) 90 mcg/actuation inhaler Inhale 2 Puffs as instructed every 4 hours as needed for wheezing/shortness of breath. atorvastatin (LIPITOR) 40 mg tablet Take 1 tablet by mouth daily at bedtime. cyanocobalamin (VITAMIN B-12) 500 mcg tablet Take 1 tablet by mouth once daily. acetaminophen (TYLENOL) 325 mg tablet Take 2 tablets by mouth every 6 hours as needed for pain or fever (specify temp.) (Fever of over 100.4). levothyroxine (SYNTHROID) 100 mcg tablet Take 1 tablet by mouth once daily. metFORMIN (GLUCOPHAGE) 500 mg tablet Take 1 tablet by mouth two times a day. triamcinolone acetonide (KENALOG) 0.1 % cream Apply to affected area two times a day. meloxicam (MOBIC) 15 mg tablet Take 1 tablet by mouth once daily. cyclobenzaprine (FLEXERIL) 5 mg tablet Take 1 tablet by mouth two times a day as needed. azithromycin (ZITHROMAX Z-DONALD) 250 mg tablet 2 tablets by mouth first day then 1 tablet the next 4 days (Patient not taking: Reported on 12/03/2024) FAMILY HISTORY Problem Relation Age of Onset Colon Cancer Mother DC age 65 Coronary Artery Disease Mother other (kidney failure) Mother other (SLE) Mother Heart Attack Mother 50 Bladder Cancer Mother Lung Cancer Father Lymphoma Father Schizophrenia Father Depression Father None Brother None Brother Social History Tobacco Use Smoking status: Former Current packs/day: 0.50 Average packs/day: 0.5 packs/day for 5.0 years (2.5 ttl pk-yrs) Types: Cigarettes Passive exposure: Current Smokeless tobacco: Never Substance Use Topics Alcohol use: Yes Comment: Occasional Drug use: No Review of Systems Constitutional: Negative for appetite change, chills, fatigue, fever and unexpected weight change. HENT: Negative for congestion, ear pain, rhinorrhea and sore throat. Eyes: Negative for pain, discharge, itching and visual disturbance. Respiratory: Negative for cough, shortness of breath and wheezing. Cardiovascular: Negative for chest pain, palpitations and leg swelling. Gastrointestinal: Negative for abdominal pain, constipation, diarrhea, nausea and vomiting. Genitourinary: Negative for difficulty urinating. Musculoskeletal: Positive for arthralgias, back pain, gait problem, joint swelling and myalgias. Skin: Negative for rash. Neurological: Negative for dizziness, tremors, weakness and headaches. Psychiatric/Behavioral: Negative for dysphoric mood and sleep disturbance. The patient is nervous/anxious. Objective BP 122/76 Pulse 81 Ht 4' 9.28 (1.46m) Wt 234 lb (106.1kg) SpO2 96% LMP 09/04/2023 BMI 50.14 kg/(m^2). Physical Exam Constitutional: General: She is not in acute distress. Appearance: Normal appearance. HENT: Head: Normocephalic and atraumatic. Mouth/Throat: Lips: Vaiva Vo. Eyes: General: Lids are normal. Extraocular Movements: Extraocular movements intact. Conjunctiva/sclera: Conjunctivae normal. Pupils: Pupils are equal. Cardiovascular: Rate and Rhythm: Normal rate and regular rhythm. Heart sounds: Normal heart sounds. No murmur heard. Pulmonary: Effort: Pulmonary effort is normal. No respiratory distress. Breath sounds: Normal breath sounds. Musculoskeletal: Cervical back: Normal range of motion. Lumbar back: Tenderness present. Decreased range of motion. Right knee: Swelling present. Tenderness present. Left knee: Swelling present. Tenderness present. Right lower leg: No edema. Left lower leg: No edema. Skin: General: Skin is warm and dry. Findings: No rash. Neurological: General: No focal deficit present. Mental Status: She is alert and oriented to person, place, and time. Cranial Nerves: No cranial nerve deficit. Motor: Motor function is intact. Coordination: Coordination is intact. Coordination normal. Gait: Gait abnormal. Psychiatric: Attention and Perception: Attention and perception normal. Mood and Affect: Mood and affect normal. Behavior: Behavior normal. Behavior is cooperative. Latest Ref Rng 10/10/2024 Protein, Total 6.3 - 8.0 g/dL 7.4 Albumin 3.9 - 4.9 g/dL 4.7 Calcium 8.5 - 10.2 mg/dL 10.2 Bilirubin, Total 0.2 - 1.3 mg/dL 0.3 Alkaline Phosphatase 34 - 123 U/L 92 AST 13 - 35 U/L 51 (H) ALT 7 - 38 U/L 58 (H) Glucose 74 - 99 mg/dL 119 (H) BUN 7 - 21 mg/dL 11 Creatinine 0.58 - 0.96 mg/dL 0.77 Sodium 136 - 144 mmol/L 137 Potassium 3.7 - 5.1 mmol/L 4.3 Chloride 98 - 107 mmol/L 102 CO2 22 - 30 mmol/L 25 Anion Gap 8 - 15 mmol/L 10 eGFR >=60 mL/min/1.73m 97 WBC 3.70 - 11.00 k/uL 6.38 RBC 3.90 - 5.20 m/uL 4.18 Hemoglobin 11.5 - 15.5 g/dL 12.8 Hematocrit 36.0 - 46.0 % 39.1 MCV 80.0 - 100.0 fL 93.5 MCH 26.0 - 34.0 pg 30.6 MCHC 30.5 - 36.0 g/dL 32.7 RDW-CV 11.5 - 15.0 % 15.1 (H) Platelet Count 150 - 400 k/uL 344 MPV 9.0 - 12.7 fL 9.6 Absolute nRBC <0.01 k/uL <0.01 Hemoglobin A1C 4.3 - 5.6 % 5.3 Estimated Average Glucose mg/dL 105 Vitamin D 25 Hydroxy 31.0 - 80.0 ng/mL 83.3 (H) Vitamin B12 232 - 1,245 pg/mL 600 TSH 0.270 - 4.200 mIU/L 1.490 10/27/2023 5:17 PM - Radiology, Oru In Impression IMPRESSION: No acute findings. Bilateral L5 spondylolysis with grade 1 spondylolisthesis and degenerative disc disease. Levoscoliosis. _ Hot Man: PSCB Transcribe Date/Time: Oct 27 2023 5:13P Dictated by : JONATAN HILLS MD This examination was interpreted and the report reviewed and electronically signed by: JONATAN HILLS MD on Oct 27 2023 5:15PM EST Results-Findings * * *Final Report* * * DATE OF EXAM: Oct 27 2023 4:56PM UDX [id number] - XR LUMBAR 3V AP/LAT/L5-S1 / PROCEDURE REASON: Back pain * * * * Physician Interpretation * * * * EXAMINATION: XR LUMBAR 3V AP/LAT/L5-S1 HISTORY: PAIN ACROSS LOWER BACK AND TO RIGHT BUTTOCK AREA NO RECENT INJURY. CHRONIC LOW BACK PROBLEMS Back pain. COMPARISON: None. FINDINGS: For counting purposes, L4-5 is presumed to be at the level of the iliac crests. Normal vertebral body height. Bilateral L5 spondylolysis with grade 1 spondylolisthesis and degenerative disc disease. Levoscoliosis. _ 08/26/2021 1:45 PM - Radiology, Oru In Impression IMPRESSION: 1. VERTICAL LONGITUDINAL TEAR POSTERIOR ROOT ATTACHMENT MEDIAL MENISCUS. NO SIGNIFICANT EXTRUSION OF THE BODY SEGMENT. 2. MODERATE CHONDRAL SIGNAL ABNORMALITY IN THE WEIGHTBEARING SURFACE OF THE MEDIAL COMPARTMENT WELL SMALL FOCAL CHONDRAL FISSURING IN THE MEDIAL ASPECT OF THE PATELLOFEMORAL COMPARTMENT 3. INCREASED HEMATOPOIETIC MARROW NOTED, TYPICALLY SEEN WITH INCREASED METABOLIC DEMAND Hot Man: VINNY Transcribe Date/Time: Aug 26 2021 1:39P Dictated by : ABRAHAM POOLE MD This examination was interpreted and the report reviewed and electronically signed by: ABRAHAM POOLE MD on Aug 26 2021 1:43PM EST Results-Findings * * *Final Report* * * DATE OF EXAM: Aug 26 2021 11:32AM [facility] 0212 - MRI KNEE WO IVCON LT / PROCEDURE REASON: multiple diagnoses * * * * Physician Interpretation * * * * EXAMINATION: MRI LEFT KNEE WITHOUT CONTRAST CLINICAL HISTORY: Soft tissue injury TECHNIQUE: Routine non-contrast MRI of the knee MQ: [id number] COMPARISON: None RESULT: MENISCI: Medial Meniscus: Posterior root avulsion Lateral Meniscus: Intact. LIGAMENTS: ACL: Intact PCL: Intact MCL: Intact LCL Complex: Intact CARTILAGE: Medial Femoral Condyle: Moderate sized area(s) of predominantly low grade (less than 50% thickness) cartilage loss and or fissuring with smaller area(s) of high grade (greater than 50% thickness) cartilage loss and or fissuring Medial Tibial Plateau: Moderate sized area(s) of low grade (less than 50% thickness) partial thickness cartilage loss and or fissuring Lateral Femoral Condyle: Normal Lateral Tibial Plateau: Cartilage signal abnormality Patella: Small area(s) of high grade (greater than 50% thickness) partial thickness cartilage loss and or fissuring Trochlea: Small area(s) of high grade (greater than 50% thickness) partial thickness cartilage loss and or fissuring TENDONS: The distal quadriceps and patellar tendons are intact. The popliteus tendon is intact. BONES AND MARROW: Hematopoietic marrow regeneration noted without focal lesion MUSCLES: Muscle bulk and signal intensity are normal. JOINT FLUID AND SYNOVIUM: Small joint effusion. No synovitis. No Quintanilla's cyst. Moderate prepatellar bursal swelling OTHER: No other significant abnormality identified. The patient presents with advanced bilateral knee osteoarthritis resulting in chronic joint pain, significant stiffness, and reduced range of motion. The patient also has a longstanding diagnosis of lumbar degenerative disc disease contributing to axial and radicular pain, worsened with ambulation.Despite conservative management including NSAIDs, physical therapy, and intra-articular injections,the patient continues to experience chronic pain and substantial difficulty with walking and mobility. The patient reports inability to ambulate more than [e.g., 10-20 feet] without severe pain and instability. Functional Assessment: No contraindications to safe operation of a power-operated vehicle (POV). Cognitively intact and able to understand operation and safety precautions. Underwent physical capacity evaluation with PT in October 2024 - she was limited in ability to lift/carry more than 10 lbs, squatting, stair climbing, and walking. Plan and Recommendation: Based on the patient s mobility limitations and failure of less invasive mobility aids, I am recommending a power-operated vehicle (electric scooter) for community use. This device is medically necessary to enable the patient to maintain independence in performing activities of daily living and reduce the risk of falls and further joint injury. Assessment/Plan: 1. Type 2 diabetes mellitus without complication, without long-term current use of insulin (HCC) (E11.9) Hemoglobin A1c was 5.3% in September, indicating good glycemic control. Continue metformin 500 mg BID - Repeat A1c in three months. 2. Acquired hypothyroidism (E03.9) Continue levothyroxine 100 mcg daily 3. Bilateral primary osteoarthritis of knee (M17.0) Chronic pain of both knees (M25.561) Severe osteoarthritis with significant cartilage loss, described as bone on bone. Previous corticosteroid injections were poorly tolerated. Significant tenderness and crepitus noted bilaterally on examination. - Ordered bilateral knee X-rays. - Prescribed lidocaine cream for topical application up to three times daily. - Discussed potential benefits and risks of knee replacement surgery; patient not deemed ready for surgery at this time. - Initiated referral for dry needling therapy. 4. Degeneration of intervertebral disc of lumbar region with discogenic back pain and lower extremity pain (M51.362) Chronic pain syndrome (G89.4) Spondylolisthesis, lumbar region (M43.16) Chronic back pain with previous X-ray showing spondylolysis, spondylolisthesis, and degenerative disc disease. Pain is debilitating, affecting mobility and daily activities. Previous physical therapyand injections were ineffective. - Prescribed Cymbalta 30 mg orally once daily. - Referred to pain management group in [facility] for evaluation and potential dry needling therapy. - Discussed ordering a mobility scooter; patient to identify a supplier for insurance submission. - Follow-up in three months to assess pain management and effectiveness of current treatment plan. Comfort Clement APRN.COMMUNITY LIAISON documented in this encounterLouis [facility]04-[facility] Telephone encounter Note * Telephone Encounter - Gage Mathew RN - 12/03/2024 7:37 AM EDT Patient calling with regarding blood work and if she can consume coffee prior to testing today. Information provided from: [email or web address] Patient verbalizes understanding. Patient denies any new or worsening symptoms of which a provider is not aware:Yes. [facility]04-15-2025 Miscellaneous Notes* Telephone Encounter - Gage Mathew RN - 12/03/2024 7:37 AM EDT Patient calling with regarding blood work and if she can consume coffee prior to testing today. Information provided from: [email or web address] Patient verbalizes understanding. Patient denies any new or worsening symptoms of which a provider is not aware:Yes. documented in this encounterLouis Stokes [facility]03-26-2025 NoteHNO ID: [id number] Author: MARIELLE ADEN PT Service: ? Author Type: Physical Therapist Type: Progress Notes Filed: 11/13/2024 17:51 Note Text: [facility] PHYSICAL CAPACITY EVALUATION Judson De La Cruz [id number] 11/13/2024 Metallurgical Engineering Technician: Marielle Aden PT Referring Physician: Comfort Clement APRN.* DIAGNOSIS: Degeneration of intervertebral disc of lumbar region with discogenic back pain and lower extremity pain Primary osteoarthritis of both knees Decreased mobility PURPOSE OF THIS EVALUATION : This evaluation was designed to Assist physician in making recommendations regarding client's application for Social Security Disability, for her claim for a Power Scooter, and to determine client's physical abilities and tolerances. The client was instructed in the purpose and contents of the evaluation before testing. The client was informed of her ability and responsibility to modify, limit, or refuse any part of the evaluation. Functional Capacity Evaluation completed today. See scanned document tab for complete detailed report. Summary cover letter included below. Patient Name: Judson De La Cruz Date of : 1980 Diagnosis: M51.362 - Other intervertebral disc degeneration, lumbar region with discogenic back pain and lower extremity pain M17.0 - Bilateral primary osteoarthritis of knee R26.89 - Decreased mobility Date of Report: 11/13/2024 Date of Injury: unknown Referring Physician: Comfort Clement APRN.COMMUNITY LIAISON Physical Residual Functional Capacity Assessment Summary of Findings A Physical Residual Functional Capacity Assessment was conducted on 11/13/2024 to determine Ms. Purviss tolerance to perform work tasks. Consistency of Effort results obtained during testing indicate Ms. De La Cruz put forth full effort. Reliability of Pain results obtained during testing indicate pain could have been considered while making functional decisions. Ms. De La Cruz demonstrated the ability to perform within the SEDENTARY Physical Demand Category based on the definitions developed by the [place] Department of Labor and outlined in the Dictionary of Occupational Titles. 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 However, the unskilled sedentary occupational base is significantly eroded because she is unable to power lift 10 lbs or slightly less, bilateral carry 10 lbs or slightly less, walk occasionally, and sit at least 2 hours at one time.. Ms. De La Cruz lifted 5 pounds to below waist height. Ms. De La Cruz lifted 4 pounds to shoulder height. Ms. De La Cruz carried 4 pounds. Pushing abilities were evaluated and Ms. De La Cruz pulled 3 horizontal force pounds and pushed 3 horizontal force pounds respectively. Non-material handling testing indicates Ms. De La Cruz demonstrates an occasional tolerance for Above Shoulder Reach, Bending, Fine Coordination, Firm Grasping and Gross Coordination.Ms. De La Cruz demonstrated the ability to perform Forward Reaching, Pinching and Simple Grasping with frequent tolerance. The functional activities Ms. De La Cruz should avoid within a competitive work environment include Squatting, Stair Climbing and Walking. Musculoskeletal exam results as outlined in full Functional Capacity Evaluation report. Comfort Clement APRN.COMMUNITY LIAISON, thank you for the opportunity to work with your client. Electronically Signed/Authenticated by Marielle Aden PT, DPT 11/13/2024 04:45 [place] [address] Education: Learning preferences: Explanation, Demonstration, and Performance Barriers: No barriers Learning/educational needs: Plan of care Education Provided: See Treatment Below Audience: Patient and friend Method of education: Explanation, Demonstration, and Performance Response: Applied knowledge, Demonstrated skill, and Verbalized understanding Billing: Physical Performance Test (80678): 1:1 time: 120 minutes (8 units: 113-127 mins) Total time: 120 minutes Marielle Aden PTMercy Health St. Elizabeth Boardman [id number] History of Present illness Narrative * Marielle Aden PT - 11/13/2024 3:38 PM EDT [facility] PHYSICAL CAPACITY EVALUATION Judson De La Cruz [id number] 11/13/2024 Metallurgical Engineering Technician: Marielle Aden PT Referring Physician: Comfort Clement APRN.* DIAGNOSIS: Degeneration of intervertebral disc of lumbar region with discogenic back pain and lowerextremity pain Primary osteoarthritis of both knees Decreased mobility PURPOSE OF THIS EVALUATION : This evaluation was designed to Assist physician in making recommendations regarding client's application for Social Security Disability, for her claim for a Power Scooter, and to determine client's physical abilities and tolerances. The client was instructed in the purpose and contents of the evaluation before testing. The client was informed of her ability and responsibility to modify, limit, or refuse any part of the evaluation. Functional Capacity Evaluation completed today. See scanned document tab for complete detailed report. Summary cover letter included below. Patient Name: Judson De La Cruz Date of : 1980 Diagnosis: M51.362 - Other intervertebral disc degeneration, lumbar region with discogenic back pain and lower extremity pain M17.0 - Bilateral primary osteoarthritis of knee R26.89 - Decreased mobility Date of Report: 11/13/2024 Date of Injury: unknown Referring Physician: Comfort Clement APRN.COMMUNITY LIAISON Physical Residual Functional Capacity Assessment Summary of Findings A Physical Residual Functional Capacity Assessment was conducted on 11/13/2024 to determine Ms. De La Cruz's tolerance to perform work tasks. Consistency of Effort results obtained during testing indicate Ms. De La rCuz put forth full effort. Reliability of Pain results obtained during testing indicate pain could have been considered while making functional decisions. Ms. De La Cruz demonstrated the ability to perform within the SEDENTARY Physical Demand Category based on the definitions developed by the [place] Department of Labor and outlined in the Dictionary of Occupational Titles. 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 However, the unskilled sedentary occupational base issignificantly eroded because she is unable to power lift 10 lbs or slightly less, bilateral carry 10 lbs or slightly less, walk occasionally, and sit at least 2 hours at one time.. Ms. De La Cruz lifted 5 pounds to below waist height. Ms. De La Cruz lifted 4 pounds to shoulder height. Ms. De La Cruz carried 4 pounds. Pushing abilities were evaluated and Ms. De La Cruz pulled 3 horizontal force pounds and pushed 3 horizontal force pounds respectively. Non-material handling testing indicates Ms. De La Cruz demonstrates an occasional tolerance for Above Shoulder Reach, Bending, Fine Coordination, Firm Grasping and Gross Coordination.Ms. De La Cruz demonstrated the ability to perform Forward Reaching, Pinching and Simple Grasping with frequent tolerance. The functional activities Ms. De La Cruz should avoid within a competitive work environment include Squatting, Stair Climbing and Walking. Musculoskeletal exam results as outlined in full Functional Capacity Evaluation report. Comfort Clement APRN.STACEY, thank you for the opportunity to work with your client. Electronically Signed/Authenticated by Marielle Aden PT, DPT 11/13/2024 04:45 PM [facility] [address] [place] [address] Education: Learning preferences: Explanation, Demonstration, and Performance Barriers: No barriers Learning/educational needs: Plan of care Education Provided: See Treatment Below Audience: Patient and friend Method of education: Explanation, Demonstration, and Performance Response: Applied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 ICD10: E53.8 - VITAMIN B12 - CYANOCOBALAMIN (VIT B-12) 500 MCG TABLET 11. Degeneration of intervertebral disc of lumbar region with discogenic back pain and lower extremity pain - ICD9: 722.52, ICD10: M51.362 - ACETAMINOPHEN 325 MG TABLET - CYCLOBENZAPRINE 5 MG TABLET - CONSULT TO PHYSICAL THERAPY 12. Primary osteoarthritis of both knees - ICD9: 715.16, ICD10: M17.0 - ACETAMINOPHEN 325 MG TABLET - MELOXICAM 15 MG TABLET - CONSULT TO PHYSICAL THERAPY 13. Hand dermatitis - ICD9: 692.9, ICD10: L30.9 - Topical steriod tx with Rx for steriod cream/ointment- see orders - discussed skin care of rash - follow up if symptoms persist or worsen. - TRIAMCINOLONE ACETONIDE 0.1 % TOPICAL CREAM 14. Mild intermittent asthma, uncomplicated - ICD9: 493.90, ICD10: J45.20 Check PFTs Continue albuterol as needed - SPIROMETRY - BASELINE AND POST DILATOR - LUNG DIFFUSION CAPACITY (DLCO) - LUNG VOLUMES 15. Decreased mobility - ICD9: 781.99, ICD10: R26.89 Patient requesting electric scooter today, her reasoning is decreased mobility related to arthritisin her knees I explained that there is a long process involved to have insurance approve electric scooter On exam today I do not see significant weakness, gait is normal We will have her get evaluation done with physical therapy to determine need - CONSULT TO PHYSICAL THERAPY Comfort Clement APRN.COMMUNITY LIAISON documented in this encounterLouis [facility] Telephone encounter Note * Telephone Encounter - Olya Hayden MA - 09/30/2024 2:33 PM EST Left detailed message on a secured voicemail. Olya Hayden MA [facility]02-10-[facility] Telephone encounter Note* Telephone Encounter - Olya Hayden MA - 09/30/2024 2:33 PM EST .urg [facility]02-10-2025 Miscellaneous Notes* Telephone Encounter - Olya Hayden MA - 09/30/2024 2:33 PM EST Left detailed message on a secured voicemail. Olya Hayden MA * Telephone Encounter - Olya Hayden MA - 09/30/2024 2:33 PM EST .urg * Telephone Encounter - Silvia Spicer LPN - 09/27/2024 8:12 PM EST Left message for patient to return call. Silvia Spicer LPN * Telephone Encounter - Liz Suárez APRN.COMMUNITY LIAISON - 09/26/2024 7:10 PM EST You tested negative for COVID, Influenza, and RSV. Please contact us if your symptoms are worseningor not improving. Attempted to call patient. No answer . VM left IF patient returns call, Please advise . If no return call by 09/27/24, please reach out and advise. (HAS NOT SIGNED INTO [employer] IN A YEAR) documented in this encounterLouis [facility]-07-[facility] Telephone encounter Note * Telephone Encounter - Silvia Spicer LPN - 09/27/2024 8:12 PM EST Left message for patient to return call. Silvia Spicer LPN [facility]02-06-[facility] Telephone encounter Note* Telephone Encounter - Liz Suárez APRN.CNP - 09/26/2024 7:10 PM EST You tested negative for COVID, Influenza, and RSV. Please contact us if your symptoms are worseningor not improving. Attempted to call patient. No answer . VM left IF patient returns call, Please advise . If no return call by 09/27/24, please reach out and advise. (HAS NOT SIGNED INTO [employer] IN A YEAR) [facility]02-[facility] [id number] (AGENT OF COVID-19) RNA: Not detected INFLUENZA A RNA: Not detected INFLUENZA B RNA: Not detected RESPIRATORY SYNCYTIAL VIRUS (RSV) RNA: Not detectedDayton Osteopathic HospitalComment on above:Performed By: #### [id number] ####[facility] LABCLIA [id number] [address] OF [id number] NoteHNO ID: [id number] Author: BETSY CLEARY MD Service: ? Author Type: Physician Type: Progress Notes Filed: 09/26/2024 11:14 Note Text: Patient presents with: Cough: Headache, sore throat, fatigue x 2-3 days HPI: Feeling sick for 2-3 days. Her primary issue is sore throat Positive symptoms: Coughed up phlegm once, Sore throat, Fatigue, Headache, Nasal Congestion, Negative symptoms: Rhinorrhea, Fever, Vomiting, Diarrhea, OTC: tea. She is in a custodial and cannot take cold medicine unless prescribed. MEDICATIONS: Current Outpatient Medications Medication Sig atorvastatin (LIPITOR) 40 mg tablet cholecalciferol, Vitamin D3, (VITAMIN D3) 1,250 mcg (50,000 unit) cap capsule omega-3 fatty acids/fish oil (FISH OIL-OMEGA-3 FATTY ACIDS) 300-1,000 mg cap mupirocin (BACTROBAN) 2 % cream Apply 1 application to affected area three times a day for 10 days. Location: left 5th toe metFORMIN (GLUCOPHAGE) 500 mg tablet Take 1 tablet by mouth two times a day. levothyroxine (SYNTHROID) 100 mcg tablet Take 1 tablet by mouth once daily. cyanocobalamin (VITAMIN B-12) 500 mcg ORAL Tab Take 1 tablet by mouth once daily. cyclobenzaprine (FLEXERIL) 10 mg tablet Take 1 tablet by mouth three times a day as needed for muscle spasm. (Patient not taking: Reported on 09/22/2024) atorvastatin calcium (LIPITOR ORAL) Take by mouth. (Patient not taking: Reported on 09/22/2024) albuterol HFA (PROVENTIL HFA, VENTOLIN HFA) 90 mcg/actuation inhaler Inhale 2 Puffs as instructed every 4 hours as needed for wheezing/shortness of breath. (Patient not taking: Reported on 09/26/2024) Cholecalciferol, Vitamin D3, (D3-2000) 50 mcg (2,000 unit) cap Take by mouth. (Patient not taking: Reported on 09/22/2024) No current facility-administered medications for this visit. ALLERGIES: ALLERGIES Allergen Reactions Adhesive Tape (Rosette* Other: See Comments Adhesive Tape-Silic* Rash Cephalexin Rash Doxycycline Hives, Other: See Comments, Rash Patient c/o dizziness, rash and then hives Hydrocodone-Acetami* Other: See Comments Hydrocodone-Guaifen* Unknown Sulfa (Sulfonamide * Hives, Other: See Comments, Unknown Sulfamethoxazole GI Upset VITALS: BP 124/87 Pulse 72 Temp 36.6 ?C (97.8 ?F) Resp 20 Wt 110 kg (242 lb 8.1 oz) LMP 09/04/2023 (Approximate) SpO2 97% BMI 54.37 kg/m? PHYSICAL EXAM: GEN: mildly ill appearing HEENT: PERRL, EOMI, conjunctiva clear Ears: canals clear. TMs without erythema, bulge, or effusion Sinuses: non-tender frontal sinus, non-tender maxillary sinuses Throat: moist mucous membranes, mild erythema, no exudate Neck: supple, no thyromegaly, no lymphadenopathy HEART: regular rate, regular rhythm, no murmurs LUNGS: clear to auscultation, no wheezes or crackles, no increased WOB ASSESSMENT/PLAN: 1. Sore throat - ICD9: 462, ICD10: J02.9 (primary diagnosis) 2. Upper respiratory tract infection, unspecified type - ICD9: 465.9, ICD10: J06.9 - STREP A MOLECULAR (POC) - negative. - suspect viral URI - Discussed supportive care treatment with rest, cold medicine, and analgesia. - COVID AND INFLUENZA A/B AND RSV PCR, ROUTINE Requests medication prescriptions for dispense at custodial. - ACETAMINOPHEN 325 MG TABLET - BENZONATATE 100 MG CAPSULE Betsy Cleary [facility]02-06-2025 History of Present illness Narrative* Betsy Cleary MD - 09/26/2024 10:51 AM EST Patient presents with: Cough: Headache, sore throat, fatigue x 2-3 days HPI: Feeling sick for 2-3 days. Her primary issue is sore throat Positive symptoms: Coughed up phlegm once, Sore throat, Fatigue, Headache, Nasal Congestion, Negative symptoms: Rhinorrhea, Fever, Vomiting, Diarrhea, OTC: tea. She is in a custodial and cannot take cold medicine unless prescribed. MEDICATIONS: Current Outpatient Medications Medication Sig atorvastatin (LIPITOR) 40 mg tablet cholecalciferol, Vitamin D3, (VITAMIN D3) 1,250 mcg (50,000 unit) cap capsule omega-3 fatty acids/fish oil (FISH OIL-OMEGA-3 FATTY ACIDS) 300-1,000 mg cap mupirocin (BACTROBAN) 2 % cream Apply 1 application to affected area three times a day for 10 days.Location: left 5th toe metFORMIN (GLUCOPHAGE) 500 mg tablet Take 1 tablet by mouth two times a day. levothyroxine (SYNTHROID) 100 mcg tablet Take 1 tablet by mouth once daily. cyanocobalamin (VITAMIN B-12) 500 mcg ORAL Tab Take 1 tablet by mouth once daily. cyclobenzaprine (FLEXERIL) 10 mg tablet Take 1 tablet by mouth three times a day as needed for muscle spasm. (Patient not taking: Reported on 09/22/2024) atorvastatin calcium (LIPITOR ORAL) Take by mouth. (Patient not taking: Reported on 09/22/2024) albuterol HFA (PROVENTIL HFA, VENTOLIN HFA) 90 mcg/actuation inhaler Inhale 2 Puffs as instructed every 4 hours as needed for wheezing/shortness of breath. (Patient not taking: Reported on 09/26/2024) Cholecalciferol, Vitamin D3, (D3-2000) 50 mcg (2,000 unit) cap Take by mouth. (Patient not taking: Reported on 09/22/2024) No current facility-administered medications for this visit. ALLERGIES: ALLERGIES Allergen Reactions Adhesive Tape (Rosette* Other: See Comments Adhesive Tape-Silic* Rash Cephalexin Rash Doxycycline Hives, Other: See Comments, Rash Patient c/o dizziness, rash and then hives Hydrocodone-Acetami* Other: See Comments Hydrocodone-Guaifen* Unknown Sulfa (Sulfonamide * Hives, Other: See Comments, Unknown Sulfamethoxazole GI Upset VITALS: BP 124/87 Pulse 72 Temp 36.6 C (97.8 F) Resp 20 Wt 110 kg (242 lb 8.1 oz) LMP 09/04/2023 (Approximate) SpO2 97% BMI 54.37 kg/m PHYSICAL EXAM: GEN: mildly ill appearing HEENT: PERRL, EOMI, conjunctiva clear Ears: canals clear. TMs without erythema, bulge, or effusion Sinuses: non-tender frontal sinus, non-tender maxillary sinuses Throat: moist mucous membranes, mild erythema, no exudate Neck: supple, no thyromegaly, no lymphadenopathy HEART: regular rate, regular rhythm, no murmurs LUNGS: clear to auscultation, no wheezes or crackles, no increased WOB ASSESSMENT/PLAN: 1. Sore throat - ICD9: 462, ICD10: J02.9 (primary diagnosis) 2. Upper respiratory tract infection, unspecified type - ICD9: 465.9, ICD10: J06.9 - STREP A MOLECULAR (POC) - negative. - suspect viral URI - Discussed supportive care treatment with rest, cold medicine, and analgesia. - COVID & INFLUENZA A/B & RSV PCR, ROUTINE Requests medication prescriptions for dispense at custodial. - ACETAMINOPHEN 325 MG TABLET - BENZONATATE 100 MG CAPSULE Betsy Cleary MD documented in this encounterLouis [facility] NoteHNO ID: [id number] Author: LIZ SUÁREZ APRN.COMMUNITY LIAISON Service: ? Author Type: Nurse Practitioner Type: Progress Notes Filed: 09/22/2024 15:33 Note Text: This note was created using [employer]. Subjective Judson De La Cruz is a 44 year old female. 44 year old female with PMH hyperliidemia, PCOD, DDD, depressoin, diabetes and thyroid Presents for Multiple complaints She lists off foot pain, back pain, knee pain, lack of primary care, and wanting recommendations for sooner PCP In discussing limitations of express care, she chooses her foot complaint and wanting to establish with PCP Foot Wound Acute onset yesterday Left foot Wound to little toe +red +painful Denies known trauma or injury Has history of NIDDM, and states that she takes Metformin Has not seen a senior officer The history is provided by the patient. No repair department manager was used. Wound Check This is a new problem. The current episode started yesterday. The problem occurs constantly. The problem has been unchanged. Pertinent negatives include no abdominal pain, anorexia, arthralgias, change in bowel habit, chest pain, congestion, coughing, diaphoresis, fatigue, fever, nausea, rash, sore throat, swollen glands, urinary symptoms, visual change, vomiting or weakness. Nothing aggravates the symptoms. She has tried nothing for the symptoms. The treatment provided no relief. 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 Hemorrhoids 03/18/2018 Herpes zoster 03/14/2024 Hyperglycemia 03/14/2024 Hyperlipidemia Hypothyroid 08/21/1998 Irregular menses Knee pain 03/14/2024 Comment on above: KNEE PAIN Major depressive disorder, recurrent, moderate (HCC) 05/23/2023 Muscle spasms of neck 03/14/2024 Muscle weakness 11/17/2023 Muscle weakness (generalized) 11/17/2023 Obesity Other intervertebral disc degeneration, lumbar region 11/03/2023 Other specified diseases of anus and rectum 09/04/2023 Pain in joint, multiple sites 11/17/2023 Pain in right hip 12/06/2022 Pain in unspecified joint 11/17/2023 Papanicolaou smear of cervix with atypical squamous cells cannot exclude high grade squamous intraepithelial lesion (ASC-H) 03/14/2024 Pleurodynia 07/10/2023 Polycystic disease, ovaries Radiculopathy, cervical region 11/03/2023 Rash 03/14/2024 Somatic dysfunction of cervical region 03/14/2024 Somatic dysfunction of head region 03/14/2024 Spasm of cervical paraspinous muscle 03/14/2024 Strain of hamstring muscle 03/14/2024 Tension type headache 03/14/2024 Type 2 diabetes mellitus without complications (HCC) 12/06/2022 Vaginal odor 03/14/2024 PAST SURGICAL HISTORY Procedure Laterality Date CHOLECYSTECTOMY ORAL SURGERY PROCEDURE all teeth pulled wisdom teeth ALLERGIES Adhesive Tape (Rosins), Adhesive Tape-Silicones, Cephalexin, Doxycycline, Hydrocodone-Acetaminophen, Hydrocodone-Guaifenesin, Sulfa (Sulfonamide Antibiotics), and Sulfamethoxazole MEDICATIONS atorvastatin (LIPITOR) 40 mg tablet cholecalciferol, Vitamin D3, (VITAMIN D3) 1,250 mcg (50,000 unit) cap capsule omega-3 fatty acids/fish oil (FISH OIL-OMEGA-3 FATTY ACIDS) 300-1,000 mg cap metFORMIN (GLUCOPHAGE) 500 mg tablet Take 1 tablet by mouth two times a day. albuterol HFA (PROVENTIL HFA, VENTOLIN HFA) 90 mcg/actuation inhaler Inhale 2 Puffs as instructed every 4 hours as needed for wheezing/shortness of breath. levothyroxine (SYNTHROID) 100 mcg tablet Take 1 tablet by mouth once daily. cyanocobalamin (VITAMIN B-12) 500 mcg ORAL Tab Take 1 tablet by mouth once daily. mupirocin (BACTROBAN) 2 % cream Apply 1 application to affected area three times a day for 10 days. Location: left 5th toe cyclobenzaprine (FLEXERIL) 10 mg tablet Take 1 tablet by mouth three times a day as needed for muscle spasm. (Patient not taking: Reported on 09/22/2024) atorvastatin calcium (LIPITOR ORAL) Take by mouth. (Patient not taking: Reported on 09/22/2024) Cholecalciferol, Vitamin D3, (D3-2000) 50 mcg (2,000 unit) cap Take by mouth. (Patient not taking: Reported on 09/22/2024) FAMILY HISTORY Problem Relation Age of Onset Cancer Mother DC age 65 Coronary Artery Disease Mother other (kidney failure) Mother other (SLE) Mother None Father None Brother None Brother Social History Tobacco Use Smoking status: Former Current packs/day: 0.50 Average packs/day: 0.5 packs/day fo (more content not included)...[facility]02-02-2025 History of Present illness Narrative* Liz Suárez APRN.COMMUNITY LIAISON - 09/22/2024 1:32 PM EST Images from the original note were not included. This note was created using [employer]. Subjective Judson De La Cruz is a 44 year old female. 44 year old female with PMH hyperliidemia, PCOD, DDD, depressoin, diabetes and thyroid Presents for Multiple complaints She lists off foot pain, back pain, knee pain, lack of primary care, and wanting recommendations for sooner PCP In discussing limitations of express care, she chooses her foot complaint and wanting to establish with PCP Foot Wound Acute onset yesterday Left foot Wound to little toe +red +painful Denies known trauma or injury Has history of NIDDM, and states that she takes Metformin Has not seen a senior officer The history is provided by the patient. No repair department manager was used. Wound Check This is a new problem. The current episode started yesterday. The problem occurs constantly. The problem has been unchanged. Pertinent negatives include no abdominal pain, anorexia, arthralgias, change in bowel habit, chest pain, congestion, coughing, diaphoresis, fatigue, fever, nausea, rash, sorethroat, swollen glands, urinary symptoms, visual change, vomiting or weakness. Nothing aggravates the symptoms. She has tried nothing for the symptoms. The treatment provided no relief. 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 Hemorrhoids 03/18/2018 Herpes zoster 03/14/2024 Hyperglycemia 03/14/2024 Hyperlipidemia Hypothyroid 08/21/1998 Irregular menses Knee pain 03/14/2024 Comment on above: KNEE PAIN Major depressive disorder, recurrent, moderate (HCC) 05/23/2023 Muscle spasms of neck 03/14/2024 Muscle weakness 11/17/2023 Muscle weakness (generalized) 11/17/2023 Obesity Other intervertebral disc degeneration, lumbar region 11/03/2023 Other specified diseases of anus and rectum 09/04/2023 Pain in joint, multiple sites 11/17/2023 Pain in right hip 12/06/2022 Pain in unspecified joint 11/17/2023 Papanicolaou smear of cervix with atypical squamous cells cannot exclude high grade squamous intraepithelial lesion (ASC-H) 03/14/2024 Pleurodynia 07/10/2023 Polycystic disease, ovaries Radiculopathy, cervical region 11/03/2023 Rash 03/14/2024 Somatic dysfunction of cervical region 03/14/2024 Somatic dysfunction of head region 03/14/2024 Spasm of cervical paraspinous muscle 03/14/2024 Strain of hamstring muscle 03/14/2024 Tension type headache 03/14/2024 Type 2 diabetes mellitus without complications (HCC) 12/06/2022 Vaginal odor 03/14/2024 PAST SURGICAL HISTORY Procedure Laterality Date CHOLECYSTECTOMY ORAL SURGERY PROCEDURE all teeth pulled wisdom teeth ALLERGIES Adhesive Tape (Rosins), Adhesive Tape-Silicones, Cephalexin, Doxycycline, Hydrocodone-Acetaminophen, Hydrocodone-Guaifenesin, Sulfa (Sulfonamide Antibiotics), and Sulfamethoxazole MEDICATIONS atorvastatin (LIPITOR) 40 mg tablet cholecalciferol, Vitamin D3, (VITAMIN D3) 1,250 mcg (50,000 unit) cap capsule omega-3 fatty acids/fish oil (FISH OIL-OMEGA-3 FATTY ACIDS) 300-1,000 mg cap metFORMIN (GLUCOPHAGE) 500 mg tablet Take 1 tablet by mouth two times a day. albuterol HFA (PROVENTIL HFA, VENTOLIN HFA) 90 mcg/actuation inhaler Inhale 2 Puffs as instructed every 4 hours as needed for wheezing/shortness of breath. levothyroxine (SYNTHROID) 100 mcg tablet Take 1 tablet by mouth once daily. cyanocobalamin (VITAMIN B-12) 500 mcg ORAL Tab Take 1 tablet by mouth once daily. mupirocin (BACTROBAN) 2 % cream Apply 1 application to affected area three times a day for 10 days.Location: left 5th toe cyclobenzaprine (FLEXERIL) 10 mg tablet Take 1 tablet by mouth three times a day as needed for muscle spasm. (Patient not taking: Reported on 09/22/2024) atorvastatin calcium (LIPITOR ORAL) Take by mouth. (Patient not taking: Reported on 09/22/2024) Cholecalciferol, Vitamin D3, (D3-2000) 50 mcg (2,000 unit) cap Take by mouth. (Patient not taking: Reported on 09/22/2024) FAMILY HISTORY Problem Relation Age of Onset Cancer Mother DC age 65 Coronary Artery Disease Mother other (kidney failure) Mother other (SLE) Mother None Father None Brother None Brother Social History Tobacco Use Smoking status: Former Current packs/day: 0.50 Average packs/day: 0.5 packs/day for 5.0 years (2.5 ttl pk-yrs) Types: Cigarettes Passive exposure: Current Smokeless tobacco: Never Substance Use Topics Alcohol use: Yes Comment: Occasional Drug use: No Review of Systems Constitutional: Negative for diaphoresis, fatigue and fever. HENT: Negative for congestion and sore throat. Eyes: Negative for pain, discharge and itching. Respiratory: Negative for cough. Cardiovascular: Negative for chest pain. Gastrointestinal: Negative for abdominal pain, anorexia, change in bowel habit, nausea and vomiting. Musculoskeletal: Negative for arthralgias. Skin: Positive for wound. Negative for rash. Allergic/Immunologic: Negative for environmental allergies, food allergies and immunocompromised state. Neurological: Negative for dizziness, facial asymmetry and weakness. Objective BP 115/81 Pulse 77 Temp 36.8 C (98.3 F) Resp 18 Wt 109.8 kg (242 lb 1 oz) LMP 09/04/2023 (Approximate) SpO2 97% BMI 54.27 kg/m Physical Exam Vitals and nursing note reviewed. Constitutional: General: She is not in acute distress. Appearance: Normal appearance. She is normal weight. She is not ill-appearing, toxic-appearing or diaphoretic. HENT: Head: Normocephalic and atraumatic. Right Ear: Ear canal and external ear normal. Left Ear: Ear canal and external ear normal. Nose: Nose normal. No congestion or rhinorrhea. Mouth/Throat: Mouth: Mucous membranes are moist. Pharynx: No oropharyngeal exudate or posterior oropharyngeal erythema. Eyes: General: Right eye: No discharge. Left eye: No discharge. Extraocular Movements: Extraocular movements intact. Conjunctiva/sclera: Conjunctivae normal. Pupils: Pupils are equal, round, and reactive to light. Cardiovascular: Rate and Rhythm: Normal rate and regular rhythm. Pulses: Normal pulses. Heart sounds: Normal heart sounds. No murmur heard. No friction rub. Pulmonary: Effort: Pulmonary effort is normal. No respiratory distress. Breath sounds: Normal breath sounds. No stridor. No wheezing, rhonchi or rales. Chest: Chest wall: No tenderness. Abdominal: General: Abdomen is flat. There is no distension. Palpations: Abdomen is soft. There is no mass. Tenderness: There is no abdominal tenderness. There is no right CVA tenderness, left CVA tenderness, guarding or rebound. Hernia: No hernia is present. Musculoskeletal: General: No swelling, tenderness, deformity or signs of injury. Normal range of motion. Cervical back: Normal range of motion and neck supple. No rigidity. Right lower leg: No edema. Left lower leg: No edema. Feet: Lymphadenopathy: Cervical: No cervical adenopathy. Skin: General: Skin is warm and dry. Coloration: Skin is not jaundiced or pale. Findings: No bruising, erythema, lesion or rash. Neurological: General: No focal deficit present. Mental Status: She is alert and oriented to person, place, and time. Cranial Nerves: No cranial nerve deficit. Sensory: No sensory deficit. Motor: No weakness. Coordination: Coordination normal. Gait: Gait normal. Psychiatric: Mood and Affect: Mood normal. Behavior: Behavior normal. Thought Content: Thought content normal. Judgment: Judgment normal. Assessment and Plan ASSESSMENT/PLAN: 1. Laceration of fifth toe - ICD9: 893.0, ICD10: S91.116A Superficial No red flags Wound cleansed Topical Muporicin DSD Patient to continue F/U with podiatry, Liz Suárez APRN.COMMUNITY LIAISON documented in this encounterLouis [facility] Instructions* Patient Instructions* Smooth Reed APRN.CNP - 07/30/2024 9:19 AM EST ASSESSMENT/PLAN: 1. Lower resp. tract infection - ICD9: 519.8, ICD10: J22 (primary diagnosis) Plenty of fluid and rest until symptoms improve. - Discussed supportive care - Limit exposure to smoke and other inhaled irritants - Discussed possible red flags and when to seek medical attention - Follow up in 3-5 days or sooner if no better or worse -If you experience chest pain/shortness of breath go to ER 2. Acute cough - ICD9: 786.2, ICD10: R05.1 - XR CHEST 2V FRONTAL/LAT [facility] of Present illness Narrative* Mariano Pack RT(R) - 07/30/2024 9:00 AM EST Radiology Service Progress Note PATIENT NAME: Judson De La Cruz DATE OF SERVICE: July 30, 2024 TIME: 8:57 AM PATIENT IDENTITY VERIFICATION COMPLETED USING TWO (2) IDENTIFIERS: Name and Date of confirmedby patient verbally. FALL SCREENING: Has the patient had 2 falls in the last year or 1 fall with injury or currently using an Ambulatory Assistive Device (Walker, Cane, Wheelchair, Crutches, etc.)? No PATIENT GENDER DATA: Female. status: : No status: NO. PATIENT RELEVANT IMPLANT DATA REVIEWED: Not Applicable PATIENT PRESENTS WITH AN IMPLANTABLE OR ATTACHED EMBEDDED SOFTWARE DEVELOPMENT ENGINEER: No RADIOLOGY DEPARTMENT: General X-ray: Exam(s) Completed: Chest X-Ray PERIPHERAL IV DATA: Not applicable SIGNED BY: RT Yudi(Judy) July 30, 2024 8:57 AM documented in this encounterLouis [facility]24 NoteHNO ID: [id number] Author: MARIANO PACK RT(R) Service: Radiology Author Type: Technologist Type: Progress Notes Filed: 07/30/2024 09:05 Note Text: Radiology Service Progress Note PATIENT NAME: Judson De La Cruz DATE OF SERVICE: July 30, 2024 TIME: 8:57 AM PATIENT IDENTITY VERIFICATION COMPLETED USING TWO (2) IDENTIFIERS: Name and Date of confirmed by patient verbally. FALL SCREENING: Has the patient had 2 falls in the last year or 1 fall with injury or currently using an Ambulatory Assistive Device (Walker, Cane, Wheelchair, Crutches, etc.)? No PATIENT GENDER DATA: Female. status: : No status: NO. PATIENT RELEVANT IMPLANT DATA REVIEWED: Not Applicable PATIENT PRESENTS WITH AN IMPLANTABLE OR ATTACHED EMBEDDED SOFTWARE DEVELOPMENT ENGINEER: No RADIOLOGY DEPARTMENT: General X-ray: Exam(s) Completed: Chest X-Ray PERIPHERAL IV DATA: Not applicable SIGNED BY: RT Yudi(Judy) July 30, 2024 8:57 [facility]12-10-2024 NoteHNO ID: [id number] Author: SMOOTH REED APRN.COMMUNITY LIAISON Service: ? Author Type: Nurse Practitioner Type: Progress Notes Filed: 07/30/2024 09:58 Note Text: Subjective HPI HPI Judson De La Cruz is a 44 year old female who presents today for CC of cough, congestion, sob, sinus pressure. This started 1 week ago. Has tried otc medication for relief. Symptoms are worsened by nothing. Risk factors sick exposures. Hx of asthma. .Patient presents with: Cough: Chest congestion, chest tightness, SOB, runny nose, sinus pressure, yellow thick phlegm x 1 week 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 Hemorrhoids 03/18/2018 Herpes zoster 03/14/2024 Hyperglycemia 03/14/2024 Hyperlipidemia Hypothyroid 08/21/1998 Irregular menses Knee pain 03/14/2024 Comment on above: KNEE PAIN Major depressive disorder, recurrent, moderate (HCC) 05/23/2023 Muscle spasms of neck 03/14/2024 Muscle weakness 11/17/2023 Muscle weakness (generalized) 11/17/2023 Obesity Other intervertebral disc degeneration, lumbar region 11/03/2023 Other specified diseases of anus and rectum 09/04/2023 Pain in joint, multiple sites 11/17/2023 Pain in right hip 12/06/2022 Pain in unspecified joint 11/17/2023 Papanicolaou smear of cervix with atypical squamous cells cannot exclude high grade squamous intraepithelial lesion (ASC-H) 03/14/2024 Pleurodynia 07/10/2023 Polycystic disease, ovaries Radiculopathy, cervical region 11/03/2023 Rash 03/14/2024 Somatic dysfunction of cervical region 03/14/2024 Somatic dysfunction of head region 03/14/2024 Spasm of cervical paraspinous muscle 03/14/2024 Strain of hamstring muscle 03/14/2024 Tension type headache 03/14/2024 Type 2 diabetes mellitus without complications (HCC) 12/06/2022 Vaginal odor 03/14/2024 PAST SURGICAL HISTORY Procedure Laterality Date CHOLECYSTECTOMY ORAL SURGERY PROCEDURE all teeth pulled wisdom teeth ALLERGIES Adhesive Tape (Rosins), Adhesive Tape-Silicones, Cephalexin, Doxycycline, Hydrocodone-Acetaminophen, Hydrocodone-Guaifenesin, Sulfa (Sulfonamide Antibiotics), and Sulfamethoxazole MEDICATIONS cyclobenzaprine (FLEXERIL) 10 mg tablet Take 1 tablet by mouth three times a day as needed for muscle spasm. atorvastatin calcium (LIPITOR ORAL) Take by mouth. metFORMIN (GLUCOPHAGE) 500 mg tablet Take 1 tablet by mouth two times a day. albuterol HFA (PROVENTIL HFA, VENTOLIN HFA) 90 mcg/actuation inhaler Inhale 2 Puffs as instructed every 4 hours as needed for wheezing/shortness of breath. Cholecalciferol, Vitamin D3, (D3-2000) 50 mcg (2,000 unit) cap Take by mouth. levothyroxine (SYNTHROID) 100 mcg tablet Take 1 tablet by mouth once daily. cyanocobalamin (VITAMIN B-12) 500 mcg ORAL Tab Take 1 tablet by mouth once daily. FAMILY HISTORY Problem Relation Age of Onset Cancer Mother DC age 65 Coronary Artery Disease Mother other (kidney failure) Mother other (SLE) Mother None Father None Brother None Brother Social History Tobacco Use Smoking status: Former Current packs/day: 0.50 Average packs/day: 0.5 packs/day for 5.0 years (2.5 ttl pk-yrs) Types: Cigarettes Passive exposure: Current Smokeless tobacco: Never Substance Use Topics Alcohol use: Yes Comment: Occasional Drug use: No Review of Systems Constitutional: Negative for fever. HENT: Positive for congestion and sore throat. Negative for ear pain and nosebleeds. Respiratory: Positive for cough and shortness of breath. Negative for wheezing. Cardiovascular: Negative for chest pain. Musculoskeletal: Negative for neck pain. Objective Blood pressure 122/87, pulse 95, temperature 36.8 ?C (98.2 ?F), resp. rate 20, weight 109 kg (240 lb 4.8 oz), last menstrual period 09/04/2023, SpO2 98%. Physical Exam Constitutional: General: She is not in acute distress. Appearance: She is not toxic-appearing or diaphoretic. HENT: Head: Normocephalic and atraumatic. Nose: Nose normal. Mouth/Throat: Pharynx: Uvula midline. No pharyngeal swelling, oropharyngeal exudate, posterior oropharyngeal erythema or uvula swelling. Eyes: General: Lids are normal. No scleral icterus. Right eye: No discharge. Left eye: No discharge. Conjunctiva/sclera: Conjunctivae normal. Pupils: Pupils are equal, round, and reactive to light. Neck: Trachea: Trachea normal. Cardiovascular: Rate and Rhythm: Shruthi (more content not included)...[facility] 07-30-2024 History of Present illness Narrative* Smooth Reed APRN.COMMUNITY LIAISON - 07/30/2024 8:59 AM EST Subjective HPI HPI Judson De La Cruz is a 44 year old female who presents today for CC of cough, congestion, sob, sinus pressure. This started 1 week ago. Has tried otc medication for relief. Symptoms are worsened by nothing. Risk factors sick exposures. Hx of asthma. .Patient presents with: Cough: Chest congestion, chest tightness, SOB, runny nose, sinus pressure, yellow thick phlegm x 1 week 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 Hemorrhoids 03/18/2018 Herpes zoster 03/14/2024 Hyperglycemia 03/14/2024 Hyperlipidemia Hypothyroid 08/21/1998 Irregular menses Knee pain 03/14/2024 Comment on above: KNEE PAIN Major depressive disorder, recurrent, moderate (HCC) 05/23/2023 Muscle spasms of neck 03/14/2024 Muscle weakness 11/17/2023 Muscle weakness (generalized) 11/17/2023 Obesity Other intervertebral disc degeneration, lumbar region 11/03/2023 Other specified diseases of anus and rectum 09/04/2023 Pain in joint, multiple sites 11/17/2023 Pain in right hip 12/06/2022 Pain in unspecified joint 11/17/2023 Papanicolaou smear of cervix with atypical squamous cells cannot exclude high grade squamous intraepithelial lesion (ASC-H) 03/14/2024 Pleurodynia 07/10/2023 Polycystic disease, ovaries Radiculopathy, cervical region 11/03/2023 Rash 03/14/2024 Somatic dysfunction of cervical region 03/14/2024 Somatic dysfunction of head region 03/14/2024 Spasm of cervical paraspinous muscle 03/14/2024 Strain of hamstring muscle 03/14/2024 Tension type headache 03/14/2024 Type 2 diabetes mellitus without complications (HCC) 12/06/2022 Vaginal odor 03/14/2024 PAST SURGICAL HISTORY Procedure Laterality Date CHOLECYSTECTOMY ORAL SURGERY PROCEDURE all teeth pulled wisdom teeth ALLERGIES Adhesive Tape (Rosins), Adhesive Tape-Silicones, Cephalexin, Doxycycline, Hydrocodone-Acetaminophen, Hydrocodone-Guaifenesin, Sulfa (Sulfonamide Antibiotics), and Sulfamethoxazole MEDICATIONS cyclobenzaprine (FLEXERIL) 10 mg tablet Take 1 tablet by mouth three times a day as needed for muscle spasm. atorvastatin calcium (LIPITOR ORAL) Take by mouth. metFORMIN (GLUCOPHAGE) 500 mg tablet Take 1 tablet by mouth two times a day. albuterol HFA (PROVENTIL HFA, VENTOLIN HFA) 90 mcg/actuation inhaler Inhale 2 Puffs as instructed every 4 hours as needed for wheezing/shortness of breath. Cholecalciferol, Vitamin D3, (D3-2000) 50 mcg (2,000 unit) cap Take by mouth. levothyroxine (SYNTHROID) 100 mcg tablet Take 1 tablet by mouth once daily. cyanocobalamin (VITAMIN B-12) 500 mcg ORAL Tab Take 1 tablet by mouth once daily. FAMILY HISTORY Problem Relation Age of Onset Cancer Mother DC age 65 Coronary Artery Disease Mother other (kidney failure) Mother other (SLE) Mother None Father None Brother None Brother Social History Tobacco Use Smoking status: Former Current packs/day: 0.50 Average packs/day: 0.5 packs/day for 5.0 years (2.5 ttl pk-yrs) Types: Cigarettes Passive exposure: Current Smokeless tobacco: Never Substance Use Topics Alcohol use: Yes Comment: Occasional Drug use: No Review of Systems Constitutional: Negative for fever. HENT: Positive for congestion and sore throat. Negative for ear pain and nosebleeds. Respiratory: Positive for cough and shortness of breath. Negative for wheezing. Cardiovascular: Negative for chest pain. Musculoskeletal: Negative for neck pain. Objective Blood pressure 122/87, pulse 95, temperature 36.8 C (98.2 F), resp. rate 20, weight 109 kg (240 lb 4.8 oz), last menstrual period 09/04/2023, SpO2 98%. Physical Exam Constitutional: General: She is not in acute distress. Appearance: She is not toxic-appearing or diaphoretic. HENT: Head: Normocephalic and atraumatic. Nose: Nose normal. Mouth/Throat: Pharynx: Uvula midline. No pharyngeal swelling, oropharyngeal exudate, posterior oropharyngeal erythema or uvula swelling. Eyes: General: Lids are normal. No scleral icterus. Right eye: No discharge. Left eye: No discharge. Conjunctiva/sclera: Conjunctivae normal. Pupils: Pupils are equal, round, and reactive to light. Neck: Trachea: Trachea normal. Cardiovascular: Rate and Rhythm: Normal rate and regular rhythm. Heart sounds: Normal heart sounds. Pulmonary: Effort: Pulmonary effort is normal. Breath sounds: No decreased breath sounds, wheezing, rhonchi or rales. Musculoskeletal: Cervical back: Normal range of motion and neck supple. Lymphadenopathy: Cervical: No cervical adenopathy. Right cervical: No superficial cervical adenopathy. Left cervical: No superficial cervical adenopathy. Skin: Findings: No rash. Neurological: Mental Status: She is alert and oriented to person, place, and time. ASSESSMENT/PLAN: 1. Lower resp. tract infection - ICD9: 519.8, ICD10: J22 (primary diagnosis) Had possible reaction to prednisone with recent knee pain. Patient has been on prednisone many times in past without incident. Patient is asthmatic and will undoubtedly need it in future. I am reluctant to place on allergy list, if takes in future and has reaction will need to be on allergy list but I feel this is not likely an allergy as she has tolerated many times in past. - Discussed supportive care - Limit exposure to smoke and other inhaled irritants - Discussed possible red flags and when to seek medical attention - Follow up in 3-5 days or sooner if no better or worse -If you experience chest pain/shortness of breath go to ER - AZITHROMYCIN 250 MG TABLET 2. Acute cough - ICD9: 786.2, ICD10: R05.1 - XR CHEST 2V FRONTAL/LAT RESULT: Lines, tubes, and devices: None. Lungs and pleura: * Limited inspiratory effort. Small amount of bibasilar density may represent atelectasis/infiltrate No other consolidation. No lung mass. No pleural effusion. No pneumothorax. Cardiomediastinal silhouette: Normal cardiomediastinal silhouette. Bones and soft tissues: Unremarkable. IMPRESSION Findings as discussed under Results portion of report. Dictated by : DO Smooth LANE APRN.COMMUNITY LIAISON documented in this encounterLouis [facility] Telephone encounter Note * Telephone Encounter - Herminia Hills RN - 07/05/2024 9:42 AM EST Patient notified of provider's instructions. Patient verbalizes understanding. Herminia Hills RN [facility]11-[facility] Miscellaneous Notes* Telephone Encounter - Herminia Hills RN - 07/05/2024 9:42 AM EST Patient notified of provider's instructions. Patient verbalizes understanding. Herminia Hills RN * Telephone Encounter - Chet Zhu PA-C - 07/05/2024 8:31 AM EST I didn't evaluate her for a headache, she was seen for knee and back pain. I wouldn't advise takingthe prednisone if she had htat reaction. Follow up with ortho/pcp. * Telephone Encounter - Herminia Hills RN - 07/05/2024 8:13 AM EST Patient calls and states that she was seen in express care on 07/02/2024 and was prescribed prednisone. Patient reports that she started taking prednisone yesterday as prescribed and had a weird reaction where she was nausea, lightheaded, and dizzy. Patient states that she went to ER for this. Patient asking if she can take only one tablet since the prescription was for 2 tablets? Patient continues to have a headache. Please review and advise, Herminia Hills RN documented in this encounterLouis [facility]11-[facility] Telephone encounter Note * Telephone Encounter - Chet Zhu PA-C - 07/05/2024 8:31 AM EST I didn't evaluate her for a headache, she was seen for knee and back pain. I wouldn't advise takingthe prednisone if she had htat reaction. Follow up with ortho/pcp. [facility] Telephone encounter Note* Telephone Encounter - Herminia Hills RN - 07/05/2024 8:13 AM EST Patient calls and states that she was seen in express care on 07/02/2024 and was prescribed prednisone. Patient reports that she started taking prednisone yesterday as prescribed and had a weird reaction where she was nausea, lightheaded, and dizzy. Patient states that she went to ER for this. Patient asking if she can take only one tablet since the prescription was for 2 tablets? Patient continues to have a headache. Please review and advise, Herminia Hills RN [facility]11-12-[facility]24 NoteHNO ID: [id number] Author: CHET ZHU PA-C Service: ? Author Type: Physician Residential Sales Representative Type: Progress Notes Filed: 07/02/2024 09:39 Note Text: This note was created using GoSporty[employer]. Subjective Judson De La Cruz is a 44 year old female. HPI Patient presents with a chief complaint of right knee pain as well as lower back pain which is chronic. She actually had just seen the orthopedic doctor yesterday for her knee pain. He had recommended physical therapy and losing weight. She states he did not write a prescription for pain medication. She would like an anti-inflammatory, has been taking ibuprofen with some relief. Denies any new injury to her knee however is living at the homeless [facility] home and states they do make her do some chores there which seems to be flaring it up. She also is complaining of right lower back pain into her right buttock. She has had problems with sciatica several times and has seen pain management and had injections in her back before. No weakness numbness or tingling in her legs. She is able to ambulate. Review of Systems Musculoskeletal: Positive for back pain. Right knee pain All other systems reviewed and are negative. 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 Hemorrhoids 03/18/2018 Herpes zoster 03/14/2024 Hyperglycemia 03/14/2024 Hyperlipidemia Hypothyroid 08/21/1998 Irregular menses Knee pain 03/14/2024 Comment on above: KNEE PAIN Major depressive disorder, recurrent, moderate (HCC) 05/23/2023 Muscle spasms of neck 03/14/2024 Muscle weakness 11/17/2023 Muscle weakness (generalized) 11/17/2023 Obesity Other intervertebral disc degeneration, lumbar region 11/03/2023 Other specified diseases of anus and rectum 09/04/2023 Pain in joint, multiple sites 11/17/2023 Pain in right hip 12/06/2022 Pain in unspecified joint 11/17/2023 Papanicolaou smear of cervix with atypical squamous cells cannot exclude high grade squamous intraepithelial lesion (ASC-H) 03/14/2024 Pleurodynia 07/10/2023 Polycystic disease, ovaries Radiculopathy, cervical region 11/03/2023 Rash 03/14/2024 Somatic dysfunction of cervical region 03/14/2024 Somatic dysfunction of head region 03/14/2024 Spasm of cervical paraspinous muscle 03/14/2024 Strain of hamstring muscle 03/14/2024 Tension type headache 03/14/2024 Type 2 diabetes mellitus without complications (HCC) 12/06/2022 Vaginal odor 03/14/2024 Current Outpatient Medications Medication Sig Dispense Refill atorvastatin calcium (LIPITOR ORAL) Take by mouth. metFORMIN (GLUCOPHAGE) 500 mg tablet Take 1 tablet by mouth two times a day. albuterol HFA (PROVENTIL HFA, VENTOLIN HFA) 90 mcg/actuation inhaler Inhale 2 Puffs as instructed every 4 hours as needed for wheezing/shortness of breath. 1 Each 0 Cholecalciferol, Vitamin D3, (D3-2000) 50 mcg (2,000 unit) cap Take by mouth. levothyroxine (SYNTHROID) 100 mcg tablet Take 1 tablet by mouth once daily. 90 tablet 3 cyanocobalamin (VITAMIN B-12) 500 mcg ORAL Tab Take 1 tablet by mouth once daily. 0 predniSONE (DELTASONE) 20 mg tablet Take 2 tablets by mouth once daily for 5 days. 10 tablet 0 cyclobenzaprine (FLEXERIL) 10 mg tablet Take 1 tablet by mouth three times a day as needed for muscle spasm. 12 tablet 0 hydrOXYzine HCl (ATARAX) 25 mg tablet Take 25 mg by mouth. (Patient not taking: Reported on 04/03/2024) medroxyPROGESTERone (PROVERA) 10 mg tablet Take by mouth every 24 hours. (Patient not taking: Reported on 03/27/2024) meloxicam (MOBIC) 15 mg tablet Take 15 mg by mouth once daily. (Patient not taking: Reported on 04/03/2024) hydrocortisone-pramoxine (PRAMOX) 25-18 mg suppository 1 Suppository by RECTAL route two times a day. (Patient not taking: Reported on 04/03/2024) 14 Suppository 0 loperamide (IMODIUM) 2 mg cap(s) Take 1 capsule by mouth four times a day as needed for up to 7 days. 20 capsule 0 permethrin (ELIMITE) 5 % cream APPLY AND WASH OFF IN 8 TO 10 HOURS IF NOT BETTER IN ONE WEEK REPEAT TREATMENT (Patient not taking: Reported on 03/27/2024) 2 No current facility-administered medications for this visit. PAST SURGICAL HISTORY Procedure Laterality Date CHOLECYSTECTOMY ORAL SURGERY PROCEDURE all teeth pulled wisdom teeth FAMILY HISTORY Problem Relation Age of Onset Cancer Mother DC age 65 Coronary Artery Disease Mother other (kidney failure) Mother (more content not included)...[facility]11-12-2024 History of Present illness Narrative* Chet Zhu PA-C - 07/02/2024 9:36 AM EST This note was created using [employer]. Subjective Judson De La Cruz is a 44 year old female. HPI Patient presents with a chief complaint of right knee pain as well as lower back pain which is chronic. She actually had just seen the orthopedic doctor yesterday for her knee pain. He had recommended physical therapy and losing weight. She states he did not write a prescription for pain medication. She would like an anti-inflammatory, has been taking ibuprofen with some relief. Denies any new injury to her knee however is living at the homeless nursing home and states they do make her do some chores there which seems to be flaring it up. She also is complaining of right lower back pain into her right buttock. She has had problems with sciatica several times and has seen pain management and had i njections in her back before. No weakness numbness or tingling in her legs. She is able to ambulate. Review of Systems Musculoskeletal: Positive for back pain. Right knee pain All other systems reviewed and are negative. 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 Hemorrhoids 03/18/2018 Herpes zoster 03/14/2024 Hyperglycemia 03/14/2024 Hyperlipidemia Hypothyroid 08/21/1998 Irregular menses Knee pain 03/14/2024 Comment on above: KNEE PAIN Major depressive disorder, recurrent, moderate (HCC) 05/23/2023 Muscle spasms of neck 03/14/2024 Muscle weakness 11/17/2023 Muscle weakness (generalized) 11/17/2023 Obesity Other intervertebral disc degeneration, lumbar region 11/03/2023 Other specified diseases of anus and rectum 09/04/2023 Pain in joint, multiple sites 11/17/2023 Pain in right hip 12/06/2022 Pain in unspecified joint 11/17/2023 Papanicolaou smear of cervix with atypical squamous cells cannot exclude high grade squamous intraepithelial lesion (ASC-H) 03/14/2024 Pleurodynia 07/10/2023 Polycystic disease, ovaries Radiculopathy, cervical region 11/03/2023 Rash 03/14/2024 Somatic dysfunction of cervical region 03/14/2024 Somatic dysfunction of head region 03/14/2024 Spasm of cervical paraspinous muscle 03/14/2024 Strain of hamstring muscle 03/14/2024 Tension type headache 03/14/2024 Type 2 diabetes mellitus without complications (HCC) 12/06/2022 Vaginal odor 03/14/2024 Current Outpatient Medications Medication Sig Dispense Refill atorvastatin calcium (LIPITOR ORAL) Take by mouth. metFORMIN (GLUCOPHAGE) 500 mg tablet Take 1 tablet by mouth two times a day. albuterol HFA (PROVENTIL HFA, VENTOLIN HFA) 90 mcg/actuation inhaler Inhale 2 Puffs as instructed every 4 hours as needed for wheezing/shortness of breath. 1 Each 0 Cholecalciferol, Vitamin D3, (D3-2000) 50 mcg (2,000 unit) cap Take by mouth. levothyroxine (SYNTHROID) 100 mcg tablet Take 1 tablet by mouth once daily. 90 tablet 3 cyanocobalamin (VITAMIN B-12) 500 mcg ORAL Tab Take 1 tablet by mouth once daily. 0 predniSONE (DELTASONE) 20 mg tablet Take 2 tablets by mouth once daily for 5 days. 10 tablet 0 cyclobenzaprine (FLEXERIL) 10 mg tablet Take 1 tablet by mouth three times a day as needed for muscle spasm. 12 tablet 0 hydrOXYzine HCl (ATARAX) 25 mg tablet Take 25 mg by mouth. (Patient not taking: Reported on 04/03/2024) medroxyPROGESTERone (PROVERA) 10 mg tablet Take by mouth every 24 hours. (Patient not taking: Reported on 03/27/2024) meloxicam (MOBIC) 15 mg tablet Take 15 mg by mouth once daily. (Patient not taking: Reported on 04/03/2024) hydrocortisone-pramoxine (PRAMOX) 25-18 mg suppository 1 Suppository by RECTAL route two times a day. (Patient not taking: Reported on 04/03/2024) 14 Suppository 0 loperamide (IMODIUM) 2 mg cap(s) Take 1 capsule by mouth four times a day as needed for up to 7 days. 20 capsule 0 permethrin (ELIMITE) 5 % cream APPLY AND WASH OFF IN 8 TO 10 HOURS IF NOT BETTER IN ONE WEEK REPEATTREATMENT (Patient not taking: Reported on 03/27/2024) 2 No current facility-administered medications for this visit. PAST SURGICAL HISTORY Procedure Laterality Date CHOLECYSTECTOMY ORAL SURGERY PROCEDURE all teeth pulled wisdom teeth FAMILY HISTORY Problem Relation Age of Onset Cancer Mother DC age 65 Coronary Artery Disease Mother other (kidney failure) Mother other (SLE) Mother None Father None Brother None Brother Social History Tobacco Use Smoking status: Former Current packs/day: 0.50 Average packs/day: 0.5 packs/day for 5.0 years (2.5 ttl pk-yrs) Types: Cigarettes Passive exposure: Current Smokeless tobacco: Never Substance Use Topics Alcohol use: Yes Comment: Occasional Drug use: No Objective BP 118/78 Pulse 80 Temp 36.4 C (97.6 F) (Tympanic) Resp 18 Wt 107.7 kg (237 lb 7 oz) LMP 09/04/2023 (Approximate) SpO2 97% BMI 53.23 kg/m Physical Exam Vitals reviewed. Constitutional: Appearance: Normal appearance. She is obese. HENT: Head: Normocephalic and atraumatic. Musculoskeletal: Comments: Patient has pain with weightbearing on the right knee. No laxity noted on exam. No erythema noted. Some mild swelling anteriorly over the patellar area. Examination of the back reveals some tenderness to palpation in the right paraspinal musculature. No midline tenderness. Increased pain with range of motion of the back. Normal strength and sensationin lower extremities. Able to ambulate. DTRs intact. Skin: General: Skin is warm and dry. Neurological: Mental Status: She is alert. Assessment and Plan ASSESSMENT/PLAN: 1. Chronic pain of right knee - ICD9: 719.46, 338.29, ICD10: M25.561, G89.29 (primary diagnosis) Given prednisone burst to help with pain, recommended following back up with orthopedist she saw yesterday. 2. Chronic right-sided low back pain with right-sided sciatica - ICD9: 724.2, 724.3, 338.29, ICD10:M54.41, G89.29 Prescription for Flexeril and prednisone sent. Recommended checking blood sugar while on the prednisone due to history of type 2 diabetes. Also discussed the sedation of Flexeril. Follow-up with PCP.Patient agreeable Chet Zhu PA-C documented in this encounterLouis [facility] History of Present illness Narrative* Nicole Feliz, RT(R) - 05/15/2024 8:40 AM EDT Radiology Service Progress Note PATIENT NAME: Judson De La Cruz DATE OF SERVICE: May 15, 2024 TIME: 8:32 AM PATIENT IDENTITY VERIFICATION COMPLETED USING TWO (2) IDENTIFIERS: Name and Date of confirmedby patient verbally. FALL SCREENING: Has the patient had 2 falls in the last year or 1 fall with injury or currently using an Ambulatory Assistive Device (Walker, Cane, Wheelchair, Crutches, etc.)? No PATIENT GENDER DATA: Female. status: : No status: NO. PATIENT RELEVANT IMPLANT DATA REVIEWED: Yes PATIENT PRESENTS WITH AN IMPLANTABLE OR ATTACHED EMBEDDED SOFTWARE DEVELOPMENT ENGINEER: No RADIOLOGY DEPARTMENT: General X-ray: Exam(s) Completed: Lower Extremity X- Ray(s): Tibia Fibula, Left PERIPHERAL IV DATA: Not applicable SIGNED BY: CHAR Bernard) May 15, 2024 8:32 AM documented in this encounterLouis [facility]24 NoteHNO ID: [id number] Author: NICOLE FELIZ RT (R) Service: Radiology Author Type: Technologist Type: Progress Notes Filed: 05/15/2024 08:44 Note Text: Radiology Service Progress Note PATIENT NAME: Judson De La Cruz DATE OF SERVICE: May 15, 2024 TIME: 8:32 AM PATIENT IDENTITY VERIFICATION COMPLETED USING TWO (2) IDENTIFIERS: Name and Date of confirmed by patient verbally. FALL SCREENING: Has the patient had 2 falls in the last year or 1 fall with injury or currently using an Ambulatory Assistive Device (Walker, Cane, Wheelchair, Crutches, etc.)? No PATIENT GENDER DATA: Female. status: : No status: NO. PATIENT RELEVANT IMPLANT DATA REVIEWED: Yes PATIENT PRESENTS WITH AN IMPLANTABLE OR ATTACHED EMBEDDED SOFTWARE DEVELOPMENT ENGINEER: No RADIOLOGY DEPARTMENT: General X-ray: Exam(s) Completed: Lower Extremity X-Ray(s): Tibia Fibula, Left PERIPHERAL IV DATA: Not applicable SIGNED BY: CHAR Bernard) May 15, 2024 8:32 [facility]09-25-2024 NoteHNO ID: [id number] Author: JULIO CÉSAR TRONCOSO APRN.COMMUNITY LIAISON Service: ? Author Type: Nurse Practitioner Type: Progress Notes Filed: 05/15/2024 09:08 Note Text: Subjective HPI Nontoxic-appearing female presents urgent care chief complaint left leg pain. Duration of symptoms a few months. Associated symptoms left lower leg pain. Fell back in January. Does not know if this is related. No numbness no tingling. No decrease sensation. Is a diabetic. No surgeries or fractures. No difficulty walking. Past medical history prescription medications allergies reviewed. .Patient presents with: left lower leg pain: Fell a few months ago-not sure if related 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 Hemorrhoids 03/18/2018 Herpes zoster 03/14/2024 Hyperglycemia 03/14/2024 Hyperlipidemia Hypothyroid 08/21/1998 Irregular menses Knee pain 03/14/2024 Comment on above: KNEE PAIN Major depressive disorder, recurrent, moderate (HCC) 05/23/2023 Muscle spasms of neck 03/14/2024 Muscle weakness 11/17/2023 Muscle weakness (generalized) 11/17/2023 Obesity Other intervertebral disc degeneration, lumbar region 11/03/2023 Other specified diseases of anus and rectum 09/04/2023 Pain in joint, multiple sites 11/17/2023 Pain in right hip 12/06/2022 Pain in unspecified joint 11/17/2023 Papanicolaou smear of cervix with atypical squamous cells cannot exclude high grade squamous intraepithelial lesion (ASC-H) 03/14/2024 Pleurodynia 07/10/2023 Polycystic disease, ovaries Radiculopathy, cervical region 11/03/2023 Rash 03/14/2024 Somatic dysfunction of cervical region 03/14/2024 Somatic dysfunction of head region 03/14/2024 Spasm of cervical paraspinous muscle 03/14/2024 Strain of hamstring muscle 03/14/2024 Tension type headache 03/14/2024 Type 2 diabetes mellitus without complications (HCC) 12/06/2022 Vaginal odor 03/14/2024 PAST SURGICAL HISTORY Procedure Laterality Date CHOLECYSTECTOMY ORAL SURGERY PROCEDURE all teeth pulled wisdom teeth ALLERGIES Adhesive Tape (Rosins), Adhesive Tape-Silicones, Cephalexin, Doxycycline, Hydrocodone-Acetaminophen, Hydrocodone-Guaifenesin, Sulfa (Sulfonamide Antibiotics), and Sulfamethoxazole MEDICATIONS atorvastatin calcium (LIPITOR ORAL) Take by mouth. metFORMIN (GLUCOPHAGE) 500 mg tablet Take 1 tablet by mouth two times a day. albuterol HFA (PROVENTIL HFA, VENTOLIN HFA) 90 mcg/actuation inhaler Inhale 2 Puffs as instructed every 4 hours as needed for wheezing/shortness of breath. Cholecalciferol, Vitamin D3, (D3-2000) 50 mcg (2,000 unit) cap Take by mouth. loperamide (IMODIUM) 2 mg cap(s) Take 1 capsule by mouth four times a day as needed for up to 7 days. levothyroxine (SYNTHROID) 100 mcg tablet Take 1 tablet by mouth once daily. cyanocobalamin (VITAMIN B-12) 500 mcg ORAL Tab Take 1 tablet by mouth once daily. hydrOXYzine HCl (ATARAX) 25 mg tablet Take 25 mg by mouth. (Patient not taking: Reported on 04/03/2024) medroxyPROGESTERone (PROVERA) 10 mg tablet Take by mouth every 24 hours. (Patient not taking: Reported on 03/27/2024) meloxicam (MOBIC) 15 mg tablet Take 15 mg by mouth once daily. (Patient not taking: Reported on 04/03/2024) hydrocortisone-pramoxine (PRAMOX) 25-18 mg suppository 1 Suppository by RECTAL route two times a day. (Patient not taking: Reported on 04/03/2024) permethrin (ELIMITE) 5 % cream APPLY AND WASH OFF IN 8 TO 10 HOURS IF NOT BETTER IN ONE WEEK REPEAT TREATMENT (Patient not taking: Reported on 03/27/2024) FAMILY HISTORY Problem Relation Age of Onset Cancer Mother DC age 65 Coronary Artery Disease Mother other (kidney failure) Mother other (SLE) Mother None Father None Brother None Brother Social History Tobacco Use Smoking status: Former Current packs/day: 0.50 Average packs/day: 0.5 packs/day for 5.0 years (2.5 ttl pk-yrs) Types: Cigarettes Passive exposure: Current Smokeless tobacco: Never Substance Use Topics Alcohol use: Yes Comment: Occasional Drug use: No BP 114/72 Pulse 77 Temp 36.2 ?C (97.1 ?F) (Tympanic) Resp 18 Wt 106.3 kg (234 lb 5.6 oz) LMP 09/04/2023 (Approximate) SpO2 97% BMI 52.54 kg/m? Review of Systems Constitutional: Negative for chills, fever and malaise/fatigue. Musculoskeletal: Positive for falls. Negative for back pain, joint pain, myalgias and neck pain. Neurological: Negative for (more content not included)...[facility]09-25-2024 History of Present illness Narrative* Julio César Troncoso APRN.COMMUNITY LIAISON - 05/15/2024 8:22 AM EDT Images from the original note were not included. Subjective HPI Nontoxic-appearing female presents urgent care chief complaint left leg pain. Duration of symptoms a few months. Associated symptoms left lower leg pain. Fell back in January. Does not know if this is related. No numbness no tingling. No decrease sensation. Is a diabetic. No surgeries or fractures. Nodifficulty walking. Past medical history prescription medications allergies reviewed. .Patient presents with: left lower leg pain: Fell a few months ago-not sure if related 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 Hemorrhoids 03/18/2018 Herpes zoster 03/14/2024 Hyperglycemia 03/14/2024 Hyperlipidemia Hypothyroid 08/21/1998 Irregular menses Knee pain 03/14/2024 Comment on above: KNEE PAIN Major depressive disorder, recurrent, moderate (HCC) 05/23/2023 Muscle spasms of neck 03/14/2024 Muscle weakness 11/17/2023 Muscle weakness (generalized) 11/17/2023 Obesity Other intervertebral disc degeneration, lumbar region 11/03/2023 Other specified diseases of anus and rectum 09/04/2023 Pain in joint, multiple sites 11/17/2023 Pain in right hip 12/06/2022 Pain in unspecified joint 11/17/2023 Papanicolaou smear of cervix with atypical squamous cells cannot exclude high grade squamous intraepithelial lesion (ASC-H) 03/14/2024 Pleurodynia 07/10/2023 Polycystic disease, ovaries Radiculopathy, cervical region 11/03/2023 Rash 03/14/2024 Somatic dysfunction of cervical region 03/14/2024 Somatic dysfunction of head region 03/14/2024 Spasm of cervical paraspinous muscle 03/14/2024 Strain of hamstring muscle 03/14/2024 Tension type headache 03/14/2024 Type 2 diabetes mellitus without complications (HCC) 12/06/2022 Vaginal odor 03/14/2024 PAST SURGICAL HISTORY Procedure Laterality Date CHOLECYSTECTOMY ORAL SURGERY PROCEDURE all teeth pulled wisdom teeth ALLERGIES Adhesive Tape (Rosins), Adhesive Tape-Silicones, Cephalexin, Doxycycline, Hydrocodone-Acetaminophen, Hydrocodone-Guaifenesin, Sulfa (Sulfonamide Antibiotics), and Sulfamethoxazole MEDICATIONS atorvastatin calcium (LIPITOR ORAL) Take by mouth. metFORMIN (GLUCOPHAGE) 500 mg tablet Take 1 tablet by mouth two times a day. albuterol HFA (PROVENTIL HFA, VENTOLIN HFA) 90 mcg/actuation inhaler Inhale 2 Puffs as instructed every 4 hours as needed for wheezing/shortness of breath. Cholecalciferol, Vitamin D3, (D3-2000) 50 mcg (2,000 unit) cap Take by mouth. loperamide (IMODIUM) 2 mg cap(s) Take 1 capsule by mouth four times a day as needed for up to 7 days. levothyroxine (SYNTHROID) 100 mcg tablet Take 1 tablet by mouth once daily. cyanocobalamin (VITAMIN B-12) 500 mcg ORAL Tab Take 1 tablet by mouth once daily. hydrOXYzine HCl (ATARAX) 25 mg tablet Take 25 mg by mouth. (Patient not taking: Reported on 04/03/2024) medroxyPROGESTERone (PROVERA) 10 mg tablet Take by mouth every 24 hours. (Patient not taking: Reported on 03/27/2024) meloxicam (MOBIC) 15 mg tablet Take 15 mg by mouth once daily. (Patient not taking: Reported on 04/03/2024) hydrocortisone-pramoxine (PRAMOX) 25-18 mg suppository 1 Suppository by RECTAL route two times a day. (Patient not taking: Reported on 04/03/2024) permethrin (ELIMITE) 5 % cream APPLY AND WASH OFF IN 8 TO 10 HOURS IF NOT BETTER IN ONE WEEK REPEATTREATMENT (Patient not taking: Reported on 03/27/2024) FAMILY HISTORY Problem Relation Age of Onset Cancer Mother DC age 65 Coronary Artery Disease Mother other (kidney failure) Mother other (SLE) Mother None Father None Brother None Brother Social History Tobacco Use Smoking status: Former Current packs/day: 0.50 Average packs/day: 0.5 packs/day for 5.0 years (2.5 ttl pk-yrs) Types: Cigarettes Passive exposure: Current Smokeless tobacco: Never Substance Use Topics Alcohol use: Yes Comment: Occasional Drug use: No BP 114/72 Pulse 77 Temp 36.2 C (97.1 F) (Tympanic) Resp 18 Wt 106.3 kg (234 lb 5.6 oz) LMP 09/04/2023 (Approximate) SpO2 97% BMI 52.54 kg/m Review of Systems Constitutional: Negative for chills, fever and malaise/fatigue. Musculoskeletal: Positive for falls. Negative for back pain, joint pain, myalgias and neck pain. Neurological: Negative for dizziness, loss of consciousness, weakness and headaches. Objective Physical Exam Constitutional: General: She is not in acute distress. Appearance: She is not toxic-appearing. HENT: Head: Normocephalic. Nose: Nose normal. Eyes: Pupils: Pupils are equal, round, and reactive to light. Cardiovascular: Rate and Rhythm: Normal rate. Pulmonary: Effort: Pulmonary effort is normal. No respiratory distress. Musculoskeletal: Cervical back: Normal range of motion. Legs: Comments: Pain with palpation highlighted area. No erythema edema. Neurovascular intact. No weakness noted. Slight pitting edema noted. Skin: General: Skin is warm and dry. Neurological: General: No focal deficit present. Mental Status: She is alert. ASSESSMENT/PLAN: 1. Pain of left lower leg - ICD9: 729.5, ICD10: M79.662 - XR TIBIA FIBULA 2V AP/LAT LEFT No acute findings noted on x-ray. Suspicious of possible stasis dermatitis. With the edema I would recommended patient follow-up with PCP 3 to 5 days reevaluation. Patient was educated on supportive therapies. Patient was instructed to immediately proceed to emergency room for any new, worsening, or symptoms lasting longer than anticipated. The patient's clinical presentation is otherwise unremarkable at this time. Based on exam and clinical finding, the patient is stable for discharge. Plan ofcare was discussed with patient. Patient verbalizes understanding and agrees to plan of care. This note was generated using [employer] software. It may contain errors in wording, punctuation, or spelling. Julio César Troncoso APRN.STACEY documented in this encounterLouis [facility]24 NoteHNO ID: [id number] Author: LIZ SUÁREZ APRN.STACEY Service: ? Author Type: Nurse Practitioner Type: Progress Notes Filed: 04/03/2024 13:28 Note Text: This note was created using [employer]Sporty[employer]. Subjective Judson De La Cruz is a 43 year old female. 43 year old female with PMH hyperlipidemia, thyroid, DM, PCOS, DDD, and depression presents for illness. Acute onset She was seen here on 03/27/24. At that time diagnosed with bronchitis for complaints of sore throat, cough and headache CXR negative Strep and COVID negative She was prescribed a Zpack Completed States that her ear pain is newly developed over past couple days +popping +muffled Endorses she used hydrogen peroxide The history is provided by the patient. No repair department manager was used. Ear Problem There is pain in the right ear. This is a new problem. The current episode started in the past 7 days. The problem occurs constantly. The problem has been unchanged. There has been no fever. The pain is at a severity of 6/10. The pain is moderate. Associated symptoms include coughing, headaches, a sore throat and vomiting. Pertinent negatives include no abdominal pain, diarrhea, ear discharge, hearing loss, neck pain, rash or rhinorrhea. Treatments tried: ATB and placed hydrogen peroxide in ear. The treatment provided no relief. There is no history of a chronic ear infection, hearing loss or a tympanostomy tube. 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: Hemorrhoids 03/14/2024: Herpes zoster 03/14/2024: Hyperglycemia No date: Hyperlipidemia 08/21/1998: Hypothyroid No date: Irregular menses 03/14/2024: Knee pain Comment: Comment on above: KNEE PAIN 05/23/2023: Major depressive disorder, recurrent, moderate (HCC) 03/14/2024: Muscle spasms of neck 11/17/2023: Muscle weakness 11/17/2023: Muscle weakness (generalized) No date: Obesity 11/03/2023: Other intervertebral disc degeneration, lumbar region 09/04/2023: Other specified diseases of anus and rectum 11/17/2023: Pain in joint, multiple sites 12/06/2022: Pain in right hip 11/17/2023: Pain in unspecified joint 03/14/2024: Papanicolaou smear of cervix with atypical squamous cells cannot exclude high grade squamous intraepithelial lesion (ASC-H) 07/10/2023: Pleurodynia No date: Polycystic disease, ovaries 11/03/2023: Radiculopathy, cervical region 03/14/2024: Rash 03/14/2024: Somatic dysfunction of cervical region 03/14/2024: Somatic dysfunction of head region 03/14/2024: Spasm of cervical paraspinous muscle 03/14/2024: Strain of hamstring muscle 03/14/2024: Tension type headache 12/06/2022: Type 2 diabetes mellitus without complications (HCC) 03/14/2024: Vaginal odor PAST SURGICAL HISTORY No date: CHOLECYSTECTOMY No date: ORAL SURGERY PROCEDURE Comment: all teeth pulled No date: wisdom teeth ALLERGIES Adhesive Tape (Rosins), Adhesive Tape-Silicones, Cephalexin, Doxycycline, Hydrocodone-Acetaminophen, Hydrocodone-Guaifenesin, Sulfa (Sulfonamide Antibiotics), and Sulfamethoxazole MEDICATIONS atorvastatin calcium (LIPITOR ORAL) Take by mouth. metFORMIN (GLUCOPHAGE) 500 mg tablet Take 1 tablet by mouth two times a day. albuterol HFA (PROVENTIL HFA, VENTOLIN HFA) 90 mcg/actuation inhaler Inhale 2 Puffs as instructed every 4 hours as needed for wheezing/shortness of breath. Cholecalciferol, Vitamin D3, (D3-2000) 50 mcg (2,000 unit) cap Take by mouth. levothyroxine (SYNTHROID) 100 mcg tablet Take 1 tablet by mouth once daily. cyanocobalamin (VITAMIN B-12) 500 mcg ORAL Tab Take 1 tablet by mouth once daily. cefdinir (OMNICEF) 300 mg capsule Take 1 capsule by mouth two times a day for 7 days. hydrOXYzine HCl (ATARAX) 25 mg tablet Take 25 mg by mouth. (Patient not taking: Reported on 04/03/2024) medroxyPROGESTERone (PROVERA) 10 mg tablet Take by mouth every 24 hours. (Patient not taking: Reported on 03/27/2024) meloxicam (MOBIC) 15 mg tablet Take 15 mg by mouth once daily. (Patient not taking: Reported on 04/03/2024) hydrocortisone-pramoxine (PRAMOX) 25-18 mg suppository 1 Suppository by RECTAL route two times a day. (Patient not taking: Reported on 04/03/2024) loperamide (IMODIUM) 2 mg cap(s) Take 1 capsule by mouth four times a day as needed for up to 7 days. permethrin (ELIMITE) 5 % cream APPLY AND WASH OFF IN 8 TO 10 HOURS IF NOT BETTER (more content not included)...[facility]08-14-[facility] History of Present illness Narrative* Liz Suárez, LESTER.COMMUNITY LIAISON - 04/03/2024 1:08 PM EDT This note was created using NoteWriter. Subjective Judson De La Cruz is a 43 year old female. 43 year old female with PMH hyperlipidemia, thyroid, DM, PCOS, DDD, and depression presents for illness. Acute onset She was seen here on 03/27/24. At that time diagnosed with bronchitis for complaints of sore throat, cough and headache CXR negative Strep and COVID negative She was prescribed a Zpack Completed States that her ear pain is newly developed over past couple days +popping +muffled Endorses she used hydrogen peroxide The history is provided by the patient. No repair department manager was used. Ear Problem There is pain in the right ear. This is a new problem. The current episode started in the past 7 days. The problem occurs constantly. The problem has been unchanged. There has been no fever. The painis at a severity of 6/10. The pain is moderate. Associated symptoms include coughing, headaches, a sore throat and vomiting. Pertinent negatives include no abdominal pain, diarrhea, ear discharge, hearing loss, neck pain, rash or rhinorrhea. Treatments tried: ATB and placed hydrogen peroxide in ear. The treatment provided no relief. There is no history of a chronic ear infection, hearing loss or a tympanostomy tube. 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: Hemorrhoids 03/14/2024: Herpes zoster 03/14/2024: Hyperglycemia No date: Hyperlipidemia 08/21/1998: Hypothyroid No date: Irregular menses 03/14/2024: Knee pain Comment: Comment on above: KNEE PAIN 05/23/2023: Major depressive disorder, recurrent, moderate (HCC) 03/14/2024: Muscle spasms of neck 11/17/2023: Muscle weakness 11/17/2023: Muscle weakness (generalized) No date: Obesity 11/03/2023: Other intervertebral disc degeneration, lumbar region 09/04/2023: Other specified diseases of anus and rectum 11/17/2023: Pain in joint, multiple sites 12/06/2022: Pain in right hip 11/17/2023: Pain in unspecified joint 03/14/2024: Papanicolaou smear of cervix with atypical squamous cells cannot exclude high grade squamous intraepithelial lesion (ASC-H) 07/10/2023: Pleurodynia No date: Polycystic disease, ovaries 11/03/2023: Radiculopathy, cervical region 03/14/2024: Rash 03/14/2024: Somatic dysfunction of cervical region 03/14/2024: Somatic dysfunction of head region 03/14/2024: Spasm of cervical paraspinous muscle 03/14/2024: Strain of hamstring muscle 03/14/2024: Tension type headache 12/06/2022: Type 2 diabetes mellitus without complications (HCC) 03/14/2024: Vaginal odor PAST SURGICAL HISTORY No date: CHOLECYSTECTOMY No date: ORAL SURGERY PROCEDURE Comment: all teeth pulled No date: wisdom teeth ALLERGIES Adhesive Tape (Rosins), Adhesive Tape-Silicones, Cephalexin, Doxycycline, Hydrocodone-Acetaminophen, Hydrocodone-Guaifenesin, Sulfa (Sulfonamide Antibiotics), and Sulfamethoxazole MEDICATIONS atorvastatin calcium (LIPITOR ORAL) Take by mouth. metFORMIN (GLUCOPHAGE) 500 mg tablet Take 1 tablet by mouth two times a day. albuterol HFA (PROVENTIL HFA, VENTOLIN HFA) 90 mcg/actuation inhaler Inhale 2 Puffs as instructed every 4 hours as needed for wheezing/shortness of breath. Cholecalciferol, Vitamin D3, (D3-2000) 50 mcg (2,000 unit) cap Take by mouth. levothyroxine (SYNTHROID) 100 mcg tablet Take 1 tablet by mouth once daily. cyanocobalamin (VITAMIN B-12) 500 mcg ORAL Tab Take 1 tablet by mouth once daily. cefdinir (OMNICEF) 300 mg capsule Take 1 capsule by mouth two times a day for 7 days. hydrOXYzine HCl (ATARAX) 25 mg tablet Take 25 mg by mouth. (Patient not taking: Reported on 04/03/2024) medroxyPROGESTERone (PROVERA) 10 mg tablet Take by mouth every 24 hours. (Patient not taking: Reported on 03/27/2024) meloxicam (MOBIC) 15 mg tablet Take 15 mg by mouth once daily. (Patient not taking: Reported on 04/03/2024) hydrocortisone-pramoxine (PRAMOX) 25-18 mg suppository 1 Suppository by RECTAL route two times a day. (Patient not taking: Reported on 04/03/2024) loperamide (IMODIUM) 2 mg cap(s) Take 1 capsule by mouth four times a day as needed for up to 7 days. permethrin (ELIMITE) 5 % cream APPLY AND WASH OFF IN 8 TO 10 HOURS IF NOT BETTER IN ONE WEEK REPEATTREATMENT (Patient not taking: Reported on 03/27/2024) FAMILY HISTORY Problem Relation Age of Onset Cancer Mother DC age 65 Coronary Artery Disease Mother other (kidney failure) Mother other (SLE) Mother None Father None Brother None Brother Social History Tobacco Use Smoking status: Former Packs/day: 0.50 Years: 5.00 Additional pack years: 0.00 Total pack years: 2.50 Types: Cigarettes Passive exposure: Current Smokeless tobacco: Never Substance Use Topics Alcohol use: Yes Comment: Occasional Drug use: No Review of Systems Constitutional: Negative for activity change, appetite change, fatigue and fever. HENT: Positive for congestion, ear pain and sore throat. Negative for ear discharge, hearing loss and rhinorrhea. Eyes: Negative for pain, discharge, redness and itching. Respiratory: Positive for cough. Negative for apnea, choking and chest tightness. Cardiovascular: Negative for chest pain, palpitations and leg swelling. Gastrointestinal: Positive for vomiting. Negative for abdominal pain and diarrhea. Musculoskeletal: Negative for arthralgias, back pain and neck pain. Skin: Negative for color change, pallor and rash. Allergic/Immunologic: Negative for environmental allergies, food allergies and immunocompromised state. Neurological: Positive for headaches. Negative for dizziness and facial asymmetry. Hematological: Negative for adenopathy. Does not bruise/bleed easily. Psychiatric/Behavioral: Negative for agitation and behavioral problems. Objective BP 102/64 Pulse 86 Temp 36.8 C (98.2 F) Resp 21 Wt 101 kg (222 lb 10.6 oz) LMP 09/04/2023(Approximate) SpO2 98% BMI 49.92 kg/m Physical Exam Vitals and nursing note reviewed. Constitutional: General: She is not in acute distress. Appearance: Normal appearance. She is normal weight. She is not ill-appearing, toxic-appearing or diaphoretic. HENT: Head: Normocephalic and atraumatic. Right Ear: Ear canal and external ear normal. Left Ear: Ear canal and external ear normal. Ears: Comments: Right TM erythematous and bulging Nose: Nose normal. No congestion or rhinorrhea. Mouth/Throat: Mouth: Mucous membranes are moist. Pharynx: No oropharyngeal exudate or posterior oropharyngeal erythema. Eyes: General: Right eye: No discharge. Left eye: No discharge. Extraocular Movements: Extraocular movements intact. Conjunctiva/sclera: Conjunctivae normal. Pupils: Pupils are equal, round, and reactive to light. Cardiovascular: Rate and Rhythm: Normal rate and regular rhythm. Pulses: Normal pulses. Heart sounds: Normal heart sounds. No murmur heard. No friction rub. Pulmonary: Effort: Pulmonary effort is normal. No respiratory distress. Breath sounds: Normal breath sounds. No stridor. No wheezing, rhonchi or rales. Chest: Chest wall: No tenderness. Abdominal: General: Abdomen is flat. There is no distension. Palpations: Abdomen is soft. There is no mass. Tenderness: There is no abdominal tenderness. There is no right CVA tenderness, left CVA tenderness, guarding or rebound. Hernia: No hernia is present. Musculoskeletal: General: No swelling, tenderness, deformity or signs of injury. Normal range of motion. Cervical back: Normal range of motion and neck supple. No rigidity. Right lower leg: No edema. Left lower leg: No edema. Lymphadenopathy: Cervical: Cervical adenopathy present. Skin: General: Skin is warm and dry. Capillary Refill: Capillary refill takes less than 2 seconds. Coloration: Skin is not jaundiced or pale. Findings: No bruising, erythema, lesion or rash. Neurological: General: No focal deficit present. Mental Status: She is alert and oriented to person, place, and time. Cranial Nerves: No cranial nerve deficit. Sensory: No sensory deficit. Motor: No weakness. Coordination: Coordination normal. Gait: Gait normal. Psychiatric: Mood and Affect: Mood normal. Behavior: Behavior normal. Thought Content: Thought content normal. Judgment: Judgment normal. Assessment and Plan ASSESSMENT/PLAN: 1. Acute otitis media, right - ICD9: 382.9, ICD10: H66.91 (primary diagnosis) X several days - Will begin treatment with as per antibiotic as written, see orders - The patient should also be given OTC cough and cold meds as needed, warm salt water gargles, throat lozenges and/or OTC throat spray as needed, and nasal saline gtts and suction prn for the first 5-7 days of treatment. - Supportive care with plenty of fluids, rest, and analgesia prn. - Follow up in 3-5 days if symptoms persist or worsen. 2. URI, acute - ICD9: 465.9, ICD10: J06.9 - Symptomatic treatment with prn analgesia - Supportive care with fluids and rest - The patient may also use OTC cough and cold meds as needed, warm salt water gargles, throat lozenges and/or OTC throat spray as needed, and nasal saline gtts and suction prn. - Follow up in 3-5 days if symptoms persist or sooner if worsening of symptoms Liz Suárez APRN.COMMUNITY LIAISON documented in this encounterLouis [facility] Telephone encounter Note * Telephone Encounter - Belinda Bills RN - 03/28/2024 11:08 AM EDT Patient calling for recent test results. Results given: Betsy Cleary MD 03/27/2024 7:26 PM EDT Back to [facility] Patient notified of negative COVID, Influenza, and [facility] Belinda Bills RN [facility]08-08-2024 Miscellaneous Notes* Telephone Encounter - Belinda Bills RN - 03/28/2024 11:08 AM EDT Patient calling for recent test results. Results given: Betsy Cleary MD 03/27/2024 7:26 PM EDT Back to Top Patient notified of negative COVID, Influenza, and RSV test by [facility]. Belinda Bills RN documented in this encounterLouis [facility]-07-2024 Note* Addendum Note - Emily Alexis APRN.CNP - 03/27/2024 9:20 AM EDTAddended by: EMILY ALEXIS on: 03/27/2024 09:20 AM Modules accepted: Orders [facility]08-07-2024 Miscellaneous Notes* Addendum Note - Emily Alexis APRN.CNP - 03/27/2024 9:20 AM EDTAddended by: EMILY ALEXIS on: 03/27/2024 09:20 AM Modules accepted: Orders documented in this encounterLouis [facility]08-07-2024 NoteHNO ID: [id number] Author: EMILY ALEXIS APRN.CNP Service: ? Author Type: Nurse Practitioner Type: Progress Notes Filed: 03/27/2024 09:16 Note Text: Subjective HPI Judson presents with a 5 day hx of cough, sore throat and chest congestion.She states she has a hx of asthma and she feels her symptoms are worsening. She states she has been using her previously prescribed albuterol a few times a day and otc cough and cold medicine. She currently lives in a homeless nursing home and is not aware of any sick contacts. 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: Hemorrhoids 03/14/2024: Herpes zoster 03/14/2024: Hyperglycemia No date: Hyperlipidemia 08/21/1998: Hypothyroid No date: Irregular menses 03/14/2024: Knee pain Comment: Comment on above: KNEE PAIN 05/23/2023: Major depressive disorder, recurrent, moderate (HCC) 03/14/2024: Muscle spasms of neck 11/17/2023: Muscle weakness 11/17/2023: Muscle weakness (generalized) No date: Obesity 11/03/2023: Other intervertebral disc degeneration, lumbar region 09/04/2023: Other specified diseases of anus and rectum 11/17/2023: Pain in joint, multiple sites 12/06/2022: Pain in right hip 11/17/2023: Pain in unspecified joint 03/14/2024: Papanicolaou smear of cervix with atypical squamous cells cannot exclude high grade squamous intraepithelial lesion (ASC-H) 07/10/2023: Pleurodynia No date: Polycystic disease, ovaries 11/03/2023: Radiculopathy, cervical region 03/14/2024: Rash 03/14/2024: Somatic dysfunction of cervical region 03/14/2024: Somatic dysfunction of head region 03/14/2024: Spasm of cervical paraspinous muscle 03/14/2024: Strain of hamstring muscle 03/14/2024: Tension type headache 12/06/2022: Type 2 diabetes mellitus without complications (HCC) 03/14/2024: Vaginal odor PAST SURGICAL HISTORY No date: CHOLECYSTECTOMY No date: ORAL SURGERY PROCEDURE Comment: all teeth pulled No date: wisdom teeth ALLERGIES Adhesive Tape (Rosins), Adhesive Tape-Silicones, Cephalexin, Doxycycline, Hydrocodone-Acetaminophen, Hydrocodone-Guaifenesin, Sulfa (Sulfonamide Antibiotics), and Sulfamethoxazole MEDICATIONS hydrOXYzine HCl (ATARAX) 25 mg tablet Take 25 mg by mouth. metFORMIN (GLUCOPHAGE) 500 mg tablet Take 1 tablet by mouth two times a day. meloxicam (MOBIC) 15 mg tablet Take 15 mg by mouth once daily. albuterol HFA (PROVENTIL HFA, VENTOLIN HFA) 90 mcg/actuation inhaler Inhale 2 Puffs as instructed every 4 hours as needed for wheezing/shortness of breath. Cholecalciferol, Vitamin D3, (D3-2000) 50 mcg (2,000 unit) cap Take by mouth. hydrocortisone-pramoxine (PRAMOX) 25-18 mg suppository 1 Suppository by RECTAL route two times a day. loperamide (IMODIUM) 2 mg cap(s) Take 1 capsule by mouth four times a day as needed for up to 7 days. levothyroxine (SYNTHROID) 100 mcg tablet Take 1 tablet by mouth once daily. cyanocobalamin (VITAMIN B-12) 500 mcg ORAL Tab Take 1 tablet by mouth once daily. atorvastatin calcium (LIPITOR ORAL) Take by mouth. medroxyPROGESTERone (PROVERA) 10 mg tablet Take by mouth every 24 hours. (Patient not taking: Reported on 03/27/2024) permethrin (ELIMITE) 5 % cream APPLY AND WASH OFF IN 8 TO 10 HOURS IF NOT BETTER IN ONE WEEK REPEAT TREATMENT (Patient not taking: Reported on 03/27/2024) FAMILY HISTORY Problem Relation Age of Onset Cancer Mother DC age 65 Coronary Artery Disease Mother other (kidney failure) Mother other (SLE) Mother None Father None Brother None Brother Social History Tobacco Use Smoking status: Former Packs/day: 0.50 Years: 5.00 Additional pack years: 0.00 Total pack years: 2.50 Types: Cigarettes Passive exposure: Current Smokeless tobacco: Never Substance Use Topics Alcohol use: Yes Comment: Occasional Drug use: No . Review of Systems HENT: Positive for congestion and sore throat. Respiratory: Positive for cough and sputum production. Negative for hemoptysis, shortness of breath and wheezing. All other systems reviewed and are negative. Objective Physical Exam Vitals and nursing note reviewed. Constitutional: Appearance: Normal appearance. HENT: Head: Normocephalic and atraumatic. Right Ear: Tympanic membrane, ear canal and external ear normal. Left Ear: Tympanic membrane, ear canal and external ear normal. Nose: Congestion (more content not included)...[facility] 03-27-2024 History of Present illness Narrative* Emily Alexis APRN.COMMUNITY LIAISON - 03/27/2024 8:59 AM EDT Subjective HPI Judson presents with a 5 day hx of cough, sore throat and chest congestion.She states she has a hx of asthma and she feels her symptoms are worsening. She states she has been using her previously prescribed albuterol a few times a day and otc cough and cold medicine. She currently lives in a homeless nursing home and is not aware of any sick contacts. 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: Hemorrhoids 03/14/2024: Herpes zoster 03/14/2024: Hyperglycemia No date: Hyperlipidemia 08/21/1998: Hypothyroid No date: Irregular menses 03/14/2024: Knee pain Comment: Comment on above: KNEE PAIN 05/23/2023: Major depressive disorder, recurrent, moderate (HCC) 03/14/2024: Muscle spasms of neck 11/17/2023: Muscle weakness 11/17/2023: Muscle weakness (generalized) No date: Obesity 11/03/2023: Other intervertebral disc degeneration, lumbar region 09/04/2023: Other specified diseases of anus and rectum 11/17/2023: Pain in joint, multiple sites 12/06/2022: Pain in right hip 11/17/2023: Pain in unspecified joint 03/14/2024: Papanicolaou smear of cervix with atypical squamous cells cannot exclude high grade squamous intraepithelial lesion (ASC-H) 07/10/2023: Pleurodynia No date: Polycystic disease, ovaries 11/03/2023: Radiculopathy, cervical region 03/14/2024: Rash 03/14/2024: Somatic dysfunction of cervical region 03/14/2024: Somatic dysfunction of head region 03/14/2024: Spasm of cervical paraspinous muscle 03/14/2024: Strain of hamstring muscle 03/14/2024: Tension type headache 12/06/2022: Type 2 diabetes mellitus without complications (HCC) 03/14/2024: Vaginal odor PAST SURGICAL HISTORY No date: CHOLECYSTECTOMY No date: ORAL SURGERY PROCEDURE Comment: all teeth pulled No date: wisdom teeth ALLERGIES Adhesive Tape (Rosins), Adhesive Tape-Silicones, Cephalexin, Doxycycline, Hydrocodone-Acetaminophen, Hydrocodone-Guaifenesin, Sulfa (Sulfonamide Antibiotics), and Sulfamethoxazole MEDICATIONS hydrOXYzine HCl (ATARAX) 25 mg tablet Take 25 mg by mouth. metFORMIN (GLUCOPHAGE) 500 mg tablet Take 1 tablet by mouth two times a day. meloxicam (MOBIC) 15 mg tablet Take 15 mg by mouth once daily. albuterol HFA (PROVENTIL HFA, VENTOLIN HFA) 90 mcg/actuation inhaler Inhale 2 Puffs as instructed every 4 hours as needed for wheezing/shortness of breath. Cholecalciferol, Vitamin D3, (D3-2000) 50 mcg (2,000 unit) cap Take by mouth. hydrocortisone-pramoxine (PRAMOX) 25-18 mg suppository 1 Suppository by RECTAL route two times a day. loperamide (IMODIUM) 2 mg cap(s) Take 1 capsule by mouth four times a day as needed for up to 7 days. levothyroxine (SYNTHROID) 100 mcg tablet Take 1 tablet by mouth once daily. cyanocobalamin (VITAMIN B-12) 500 mcg ORAL Tab Take 1 tablet by mouth once daily. atorvastatin calcium (LIPITOR ORAL) Take by mouth. medroxyPROGESTERone (PROVERA) 10 mg tablet Take by mouth every 24 hours. (Patient not taking: Reported on 03/27/2024) permethrin (ELIMITE) 5 % cream APPLY AND WASH OFF IN 8 TO 10 HOURS IF NOT BETTER IN ONE WEEK REPEATTREATMENT (Patient not taking: Reported on 03/27/2024) FAMILY HISTORY Problem Relation Age of Onset Cancer Mother DC age 65 Coronary Artery Disease Mother other (kidney failure) Mother other (SLE) Mother None Father None Brother None Brother Social History Tobacco Use Smoking status: Former Packs/day: 0.50 Years: 5.00 Additional pack years: 0.00 Total pack years: 2.50 Types: Cigarettes Passive exposure: Current Smokeless tobacco: Never Substance Use Topics Alcohol use: Yes Comment: Occasional Drug use: No . Review of Systems HENT: Positive for congestion and sore throat. Respiratory: Positive for cough and sputum production. Negative for hemoptysis, shortness of breathand wheezing. All other systems reviewed and are negative. Objective Physical Exam Vitals and nursing note reviewed. Constitutional: Appearance: Normal appearance. HENT: Head: Normocephalic and atraumatic. Right Ear: Tympanic membrane, ear canal and external ear normal. Left Ear: Tympanic membrane, ear canal and external ear normal. Nose: Congestion present. Mouth/Throat: Mouth: Mucous membranes are moist. Pharynx: Posterior oropharyngeal erythema present. No oropharyngeal exudate. Eyes: Extraocular Movements: Extraocular movements intact. Pupils: Pupils are equal, round, and reactive to light. Cardiovascular: Rate and Rhythm: Normal rate and regular rhythm. Pulses: Normal pulses. Heart sounds: Normal heart sounds. Pulmonary: Effort: Pulmonary effort is normal. No respiratory distress. Breath sounds: Normal breath sounds. No stridor. No wheezing, rhonchi or rales. Comments: Productive cough with deep inspiration Chest: Chest wall: No tenderness. Abdominal: General: Abdomen is flat. Palpations: Abdomen is soft. Musculoskeletal: General: Normal range of motion. Cervical back: Normal range of motion and neck supple. No rigidity or tenderness. Lymphadenopathy: Cervical: No cervical adenopathy. Skin: General: Skin is warm and dry. Capillary Refill: Capillary refill takes less than 2 seconds. Neurological: General: No focal deficit present. Mental Status: She is alert and oriented to person, place, and time. Psychiatric: Mood and Affect: Mood normal. Behavior: Behavior normal. ASSESSMENT/PLAN: 1. Bronchitis - ICD9: 490, ICD10: J40 (primary diagnosis) Increase fluids Continue to use albuterol as needed if using more then terry four hours report to Emergency Department Antibiotic to use if symptoms worsen or do not improve at 10 days. 2. Sorethroat - ICD9: 462, ICD10: J02.9 - suspect viral - Rapid Strep negative in the office today - antibiotic as written - Discussed supportive care treatment with fluids, rest and analgesia. - The patient should follow up in 3-5 days if symptoms persist or worsen - RAPID STREP TEST B/O - patient states she has tolerated hydroxyzine and z-pack in the past. She is given warning. Emily Alexis APRN.CNP documented in this encounterLouis [facility]07-[facility] Telephone encounter Note * Telephone Encounter - Shahrzad Rivera MA - 03/15/2024 8:19 AM EDT Patient was informed - all questions answered She was informed to repeat labs in a month at the hospital. [facility]07-[facility] Miscellaneous Notes* Telephone Encounter - Shahrzad Rivera MA - 03/15/2024 8:19 AM EDT Patient was informed - all questions answered She was informed to repeat labs in a month at the hospital. * Telephone Encounter - Regan Herrera APRN.CNP - 03/15/2024 7:06 AM EDT Please notify Judson that her FSH is indicating menopause. I would like her to have the FSH repeated in approx 1 month for confirmation. She should not be taking provera. Reagn Herrera APRN.CNP documented in this encounterLouis [facility]07-[facility]-2024 Telephone encounter Note * Telephone Encounter - Regan Herrera APRN.CNP - 03/15/2024 7:06 AM EDT Please notify Judson that her FSH is indicating menopause. I would like her to have the FSH repeated in approx 1 month for confirmation. She should not be taking provera. Regan Herrera APRN.CNP [facility]07-25-[facility] Nurse Note* Inez Gomes MA - 03/14/2024 2:34 PM EDT Venipuncture performed to left antecubital. Number of tubes collected: 1 mint. Patient tolerated well. Regan Herrera present in office at time of lab draw. Inez Gomes MA [facility]07-[facility] Nurse Note* Inez Gomes MA - 03/14/2024 2:34 PM EDT Venipuncture performed to left antecubital. Number of tubes collected: 1 mint. Patient tolerated well. Regan Herrera present in office at time of lab draw. Inez Gomes MA documented in this encounterLouis Stokes [facility]07-25-2024 NoteHNO ID: [id number] Author: REGAN HERRERA APRN.CNP Service: ? Author Type: Nurse Practitioner Type: Progress Notes Filed: 03/14/2024 14:45 Note Text: Judson is a 43 year old who presents for an annual gynecologic exam without complaints. Pt states she uses provera to induce cycles due to her PCOS. She states she was just able to get it refilled but is waiting for the beginning of March to start it. Pt is poor historian but based on her records she also has history of endometrial hyperplasia. When I asked about this she was confusing the abnormal endometrial cells with her abnormal pap cells. I am unsure what she has been treated for as far as the hyperplasia goes. Pt also reports a possible vaginal odor although she states she is unsure if it is an odor or just when she wears dark colored underwear. Menses: Very irregular- PCOS. 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 History Comments: Sexual Activity: Yes; Male Contraception: Condom 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 Hemorrhoids 03/18/2018 Herpes zoster 03/14/2024 Hyperglycemia 03/14/2024 Hyperlipidemia Hypothyroid 08/21/1998 Irregular menses Knee pain 03/14/2024 Comment on above: KNEE PAIN Major depressive disorder, recurrent, moderate (HCC) 05/23/2023 Muscle spasms of neck 03/14/2024 Muscle weakness 11/17/2023 Muscle weakness (generalized) 11/17/2023 Obesity Other intervertebral disc degeneration, lumbar region 11/03/2023 Other specified diseases of anus and rectum 09/04/2023 Pain in joint, multiple sites 11/17/2023 Pain in right hip 12/06/2022 Pain in unspecified joint 11/17/2023 Papanicolaou smear of cervix with atypical squamous cells cannot exclude high grade squamous intraepithelial lesion (ASC-H) 03/14/2024 Pleurodynia 07/10/2023 Polycystic disease, ovaries Radiculopathy, cervical region 11/03/2023 Rash 03/14/2024 Somatic dysfunction of cervical region 03/14/2024 Somatic dysfunction of head region 03/14/2024 Spasm of cervical paraspinous muscle 03/14/2024 Strain of hamstring muscle 03/14/2024 Tension type headache 03/14/2024 Type 2 diabetes mellitus without complications (HCC) 12/06/2022 Vaginal odor 03/14/2024 PAST SURGICAL HISTORY Procedure Laterality Date CHOLECYSTECTOMY ORAL SURGERY PROCEDURE all teeth pulled wisdom teeth FAMILY HISTORY Problem Relation Age of Onset Cancer Mother DC age 65 Coronary Artery Disease Mother other (kidney failure) Mother other (SLE) Mother None Father None Brother None Brother SOCIAL HISTORY Social History Tobacco Use Smoking status: Former Packs/day: 0.50 Years: 5.00 Additional pack years: 0.00 Total pack years: 2.50 Types: Cigarettes Passive exposure: Current Smokeless tobacco: Never Substance Use Topics Alcohol use: Yes Comment: Occasional Drug use: No REVIEW OF SYSTEMS Abdomen: No abdominal pain, nausea, vomiting, diarrhea, or constipation. No bloating, early satiety, indigestion, or increased flatulence. Bladder: No dysuria, gross hematuria, urinary frequency, urinary urgency, or incontinence. Breast: No breast lumps, nipple d/c, overlying skin changes, redness or skin retraction. Allergies and current medication updated:Yes EXAM: BP 109/76 Pulse 103 Ht 4' 8 (1.42m) Wt 223 lb 8.7 oz (101.4kg) SpO2 96% LMP 09/04/2023 BMI 50.15 kg/(m2). GENERAL: pleasant, female in no apparent distress HEENT: Normocephalic, atraumatic, and mucus membranes moist NECK: Supple, full range of motion, and no adenopathy DERMATOLOGY: Normal, without lesions, non-icteric, and non-hirsute BREAST: soft, non-tender, symmetric, no dominant mass, normal nipple-areolar complex, no lymphadenopathy, and no nipple discharge CHEST: Clear to auscultation, Normal inspiratory effort, and Regular rate and rhythm ABDOMEN: soft, non-tender, and no masses PELVIC: external genitalia normal, normal Bartholin's glands, urethra, Hermosa's glands, no (more content not included)...[facility] [id number] History of Present illness Narrative* Regan Herrera APRN.COMMUNITY LIAISON - 03/14/2024 2:12 PM EDT Judson is a 43 year old who presents for an annual gynecologic exam without complaints. Pt states she uses provera to induce cycles due to her PCOS. She states she was just able to get it refilled but is waiting for the beginning of March to start it. Pt is poor historian but based on her records she also has history of endometrial hyperplasia. When I asked about this she was confusing the abnormal endometrial cells with her abnormal pap cells. I am unsure what she has been treated for as far as the hyperplasia goes. Pt also reports a possible vaginal odor although she states she is unsure if it is an odor or just when she wears dark colored underwear. Menses: Very irregular- PCOS. 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 History Comments: Sexual Activity: Yes; Male Contraception: Condom 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 Hemorrhoids 03/18/2018 Herpes zoster 03/14/2024 Hyperglycemia 03/14/2024 Hyperlipidemia Hypothyroid 08/21/1998 Irregular menses Knee pain 03/14/2024 Comment on above: KNEE PAIN Major depressive disorder, recurrent, moderate (HCC) 05/23/2023 Muscle spasms of neck 03/14/2024 Muscle weakness 11/17/2023 Muscle weakness (generalized) 11/17/2023 Obesity Other intervertebral disc degeneration, lumbar region 11/03/2023 Other specified diseases of anus and rectum 09/04/2023 Pain in joint, multiple sites 11/17/2023 Pain in right hip 12/06/2022 Pain in unspecified joint 11/17/2023 Papanicolaou smear of cervix with atypical squamous cells cannot exclude high grade squamous intraepithelial lesion (ASC-H) 03/14/2024 Pleurodynia 07/10/2023 Polycystic disease, ovaries Radiculopathy, cervical region 11/03/2023 Rash 03/14/2024 Somatic dysfunction of cervical region 03/14/2024 Somatic dysfunction of head region 03/14/2024 Spasm of cervical paraspinous muscle 03/14/2024 Strain of hamstring muscle 03/14/2024 Tension type headache 03/14/2024 Type 2 diabetes mellitus without complications (HCC) 12/06/2022 Vaginal odor 03/14/2024 PAST SURGICAL HISTORY Procedure Laterality Date CHOLECYSTECTOMY ORAL SURGERY PROCEDURE all teeth pulled wisdom teeth FAMILY HISTORY Problem Relation Age of Onset Cancer Mother DC age 65 Coronary Artery Disease Mother other (kidney failure) Mother other (SLE) Mother None Father None Brother None Brother SOCIAL HISTORY Social History Tobacco Use Smoking status: Former Packs/day: 0.50 Years: 5.00 Additional pack years: 0.00 Total pack years: 2.50 Types: Cigarettes Passive exposure: Current Smokeless tobacco: Never Substance Use Topics Alcohol use: Yes Comment: Occasional Drug use: No REVIEW OF SYSTEMS Abdomen: No abdominal pain, nausea, vomiting, diarrhea, or constipation. No bloating, early satiety, indigestion, or increased flatulence. Bladder: No dysuria, gross hematuria, urinary frequency, urinary urgency, or incontinence. Breast: No breast lumps, nipple d/c, overlying skin changes, redness or skin retraction. Allergies and current medication updated:Yes EXAM: BP 109/76 Pulse 103 Ht 4' 8 (1.42m) Wt 223 lb 8.7 oz (101.4kg) SpO2 96% LMP 09/04/2023 BMI 50.15 kg/(m^2). GENERAL: pleasant, female in no apparent distress HEENT: Normocephalic, atraumatic, and mucus membranes moist NECK: Supple, full range of motion, and no adenopathy DERMATOLOGY: Normal, without lesions, non-icteric, and non-hirsute BREAST: soft, non-tender, symmetric, no dominant mass, normal nipple-areolar complex, no lymphadenopathy, and no nipple discharge CHEST: Clear to auscultation, Normal inspiratory effort, and Regular rate and rhythm ABDOMEN: soft, non-tender, and no masses PELVIC: external genitalia normal, normal Bartholin's glands, urethra, Hermosa's glands, no vulvar lesions, no cervical lesions, good vaginal support, physiologic discharge present, normal appearing perineal body and perianal region BIMANUAL: uterus normal size, shape and consistency, no adnexal masses, and non-tender RECTOVAGINAL: deferred. NEURO: alert and oriented x3,exam grossly non-focal EXTREMITIES: normal ASSESSMENT/PLAN: 1) Health maintenance: Pap done with HPV. Mammogram ordered. Nutrition, exercise and routine health maintenance exams reviewed. Colon cancer screening: start at age 45 Lipids/glucose: followed by PCP HPV vaccine: discussed, not interested 2) PCOS/Amenorrhea: Pt has not had a cycle since August but states she has provera which she is going to take in the beginning of March. Pt is concerned she may have gone through menopause- labs ordered and will call with results. 3) History of endometrial hyperplasia: Pelvic US ordered- will call with results. 4) Vaginitis: Nuswab collected, will treat based on results. 5) Contraception: none. Contraceptive options reviewed and information provided. 6) STD screening: Accepted STD check for Gonorrhea and Chlamydia. 7) Follow up one year or sooner as needed This visit was chaperoned by Shahrzad Herrera APRN.COMMUNITY LIAISON documented in this encounterLouis Stokes [facility]07-[facility]24 NoteHNO ID: [id number] Author: RYAN FORTUNE DAVY, DPT Service: ? Author Type: Physical Therapist Type: Progress Notes Filed: 02/19/2024 16:22 Note Text: 02/19/2024 [facility] PHYSICAL THERAPY DISCONTINUANCE OF CARE Plan of Care Period: Start of Care Date: 11/15/23 Last Visit Date: 12/05/2023 Therapy Program: The following is a summary of the interventions provided for this episode of care; Therapeutic exercise, Neuromuscular re-education, Manual therapy, and Patient/Family/Caregiver Education Assessment: Based on most recent visit, patient was progressing as expected toward functional goals based on home exercise program compliance, pain levels, and appointment compliance. Unable to formally assess goal achievement, as patient has not returned to therapy or scheduled additional follow-up appointments. Reason for Discontinuation of Care: Patient has not returned to therapy or scheduled additional follow-up appointments. Ryan Fortune PT, [facility]04-16-2024 NoteHNO ID: [id number] Author: WASHINGTON LEVIN PTA Service: ? Author Type: Freight Brakeman Type: Progress Notes Filed: 12/05/2023 16:08 Note Text: Episode Visit Count: 4 Therapist That Will Accept/Oversee The Plan Of Care: Annemarie Fortune PT, DPT Start of Care Date: 11/15/23 Onset Date: 02/18/23 (unable to provide solid date, ongoing for some time with several months increased since last February 2023) Plan of Care Certification Date: 11/15/23 Next Certification Due Date: 01/14/24 Patient Identified by Name and Date of : Yes REHABILITATION AND SPORTS THERAPY PHYSICAL THERAPY TREATMENT NOTE ASSESSMENT: Judson De La Cruz tolerated the session with varying symptoms. She demonstrated greatest centralization with prone prop on elbow. Currently focusing on left lateral shift correction recommending increased compliance to determine progression of repeated motion. The patient will continue to benefit from ongoing skilled physical therapy to progress toward set goals and may need assessed for leg length discrepancy. PLAN FOR NEXT VISIT: Assess response to L lateral shift corrcection compliance and STM including with tennis ball SUBJECTIVE: Pt reports she has been moving to a new storage unit and this has caused a lot of stress, pt reports she also had to quit her job. Pt notes she has had no time to complete the 2 exercises given. Pain: Pain Pain Level: 4 (w/ meds) Pain Location: Low Back/Lumbar Spine - Right Post Treatment Pain Post Treatment Pain Level: 6 Post Treatment Pain Location: Low Back/Lumbar Spine - Right OBJECTIVE MEASURES WITH LEVEL OF FUNCTION: Spine Observations Spine Observations: L lateral shift TREATMENT: Therapeutic Exercise: 1: ppt/brace 5 sec x 3 2: ppt/ brace + march x 10 3: ppt/brace + UE [place] elbow extension 0lb x10, 4lb B shoulder extension (skull public information director) x 10 Skilled Intervention: Patient was educated in proper exercise technique and purpose for exercises. Skilled judgment was used in selection of appropriate interventions. Correct performance of therapeutic exercises was facilitated with verbal, visual, and tactile cuing. Manual Therapy: 1: STM: prone lying (patient preferred) to B lx and thoracic paraspinals, B Ql's, B upper glutes and R piriformis, clearing sacral border. (Increased tone in right piriformis region) 2: Assesses trunk alignment. Skilled Intervention: Manual skills to improve joint mobility, ROM, and decrease pain. Utilized anatomy knowledge of the therapist, and assessment of patient's response to intervention. Neuromuscular Re-Education: 2: L lateral shift correction against wall x 10- centralized, increased in R LB (produces pain in R LB) 3: prone lying to prop on elbow - centralized, produced (Central low back) 4: prone prop with hips off center to L- increased, peripheralized (Right buttocks) 5: prone press up x 3- increased, peripheralized pain (Right sacrum and buttocks) Skilled Intervention: Patient education as noted. Focused on pain centralization and left lateral shift correction, though trialed extension. Home Exercise Program Assigned: 1: Encouraged greater compliance over the next few days in regards to lateral shift correction. Billing Therapeutic Exercise Treatment Minutes: 8 Manual TherapyTreatment Minutes: 14 Neuromuscular Re-Education Treatment Minutes: 20 Skilled Treatment Time Minutes (timed and untimed codes): 42 Total Session Time (minutes): 42 Session Start Time : 1455 Session Stop Time : 1537 [facility] History of Present illness Narrative* Washington Levin [facility] - 12/05/2023 2:59 PM EDT Episode Visit Count: 4 Therapist That Will Accept/Oversee The Plan Of Care: Annemarie Fortune PT, DPT Start of Care Date: 11/15/23 Onset Date: 02/18/23 (unable to provide solid date, ongoing for some time with several months increased since last February 2023) Plan of Care Certification Date: 11/15/23 Next Certification Due Date: 01/14/24 Patient Identified by Name and Date of : Yes REHABILITATION AND SPORTS THERAPY PHYSICAL THERAPY TREATMENT NOTE ASSESSMENT: Judson De La Cruz tolerated the session with varying symptoms. She demonstrated greatest centralization with prone prop on elbow. Currently focusing on left lateral shift correction recommending increased compliance to determine progression of repeated motion. The patient will continue to benefit from ongoing skilled physical therapy to progress toward set goals and may need assessed for leg length discrepancy. PLAN FOR NEXT VISIT: Assess response to L lateral shift corrcection compliance and STM including with tennis ball SUBJECTIVE: Pt reports she has been moving to a new storage unit and this has caused a lot of stress, pt reports she also had to quit her job. Pt notes she has had no time to complete the 2 exercisesgiven. Pain: Pain Pain Level: 4 (w/ meds) Pain Location: Low Back/Lumbar Spine - Right Post Treatment Pain Post Treatment Pain Level: 6 Post Treatment Pain Location: Low Back/Lumbar Spine - Right OBJECTIVE MEASURES WITH LEVEL OF FUNCTION: Spine Observations Spine Observations: L lateral shift TREATMENT: Therapeutic Exercise: 1: ppt/brace 5 sec x 3 2: ppt/ brace + october x 10 3: ppt/brace + UE [place] elbow extension 0lb x10, 4lb B shoulder extension (skull public information director) x 10 Skilled Intervention: Patient was educated in proper exercise technique and purpose for exercises. Skilled judgment was used in selection of appropriate interventions. Correct performance of therapeutic exercises was facilitated with verbal, visual, and tactile cuing. Manual Therapy: 1: STM: prone lying (patient preferred) to B lx and thoracic paraspinals, B Ql's, B upper glutes and R piriformis, clearing sacral border. (Increased tone in right piriformis region) 2: Assesses trunk alignment. Skilled Intervention: Manual skills to improve joint mobility, ROM, and decrease pain. Utilized anatomy knowledge of the therapist, and assessment of patient's response to intervention. Neuromuscular Re-Education: 2: L lateral shift correction against wall x 10- centralized, increased in R LB (produces pain in RLB) 3: prone lying to prop on elbow - centralized, produced (Central low back) 4: prone prop with hips off center to L- increased, peripheralized (Right buttocks) 5: prone press up x 3- increased, peripheralized pain (Right sacrum and buttocks) Skilled Intervention: Patient education as noted. Focused on pain centralization and left lateral shift correction, though trialed extension. Home Exercise Program Assigned: 1: Encouraged greater compliance over the next few days in regards to lateral shift correction. Billing Therapeutic Exercise Treatment Minutes: 8 Manual TherapyTreatment Minutes: 14 Neuromuscular Re-Education Treatment Minutes: 20 Skilled Treatment Time Minutes (timed and untimed codes): 42 Total Session Time (minutes): 42 Session Start Time : 1455 Session Stop Time : 1537 Washington Levin PTA documented in this encounterLouis [facility]04-11-2024 History of Present illness Narrative* Washington Levin PTA - 11/30/2023 8:00 PM EDT Program_ID:[id number] Access Code: [email or web address] URL: [email or web address] Date: 11-30-2023 Prepared By: RYAN FORTUNE Program Notes Exercises - Abdominal Bracing - 1 x daily - 7 x weekly - 1-2 sets - 10 reps - Left Standing Lateral Shift Correction at Wall - Repetitions - 6 x daily - 7 x weekly - 1 sets - 5 reps * Washington Levin PTA - 11/29/2023 6:54 PM EDT Program_ID:[id number] Access Code: [email or web address] URL: [email or web address] Date: 11-29-2023 Prepared By: RYAN FORTUNE Program Notes Exercises - Abdominal Bracing - 1 x daily - 7 x weekly - 1-2 sets - 10 reps - Left Standing Lateral Shift Correction at Wall - Repetitions - 6 x daily - 7 x weekly - 1 sets - 5 reps * Washington Levin PTA - 11/29/2023 6:22 PM EDT Episode Visit Count: 3 Therapist That Will Accept/Oversee The Plan Of Care: Annemarie Fortune PT, DPT Start of Care Date: 11/15/23 Onset Date: 02/18/23 (unable to provide solid date, ongoing for some time with several months increased since last February 2023) Plan of Care Certification Date: 11/15/23 Next Certification Due Date: 01/14/24 Patient Identified by Name and Date of : Yes REHABILITATION AND SPORTS THERAPY PHYSICAL THERAPY TREATMENT NOTE ASSESSMENT: Judson De La Cruz tolerated the session with decreased symptoms and and improved centralization of pain. She demonstrated centralizing pain with L lateral shift correction against wall. The patient will continue to benefit from ongoing skilled physical therapy to progress toward set goals. PLAN FOR NEXT VISIT: Assess response to HEP modification, L lateral shift correction and STM. SUBJECTIVE: Pt reports pain mostly in LB, travelling into R buttock and ischial tuberosity. Pt reports she is currently living in a nursing home. Pain: Pain Pain Level: 9 Pain Location: Low Back/Lumbar Spine- Midline, Low Back/Lumbar Spine - Right, Hip - Right, Buttocks- Right Post Treatment Pain Post Treatment Pain Level: 6 Post Treatment Pain Location: Low Back/Lumbar Spine- Midline OBJECTIVE MEASURES WITH LEVEL OF FUNCTION: Spine Observations Spine Observations: L lateral shift Lumbar Spine AROM Lumbar Flexion: Major limitation, Pain during movement Lumbar Extension: Major limitation, Pain during movement Lumbar R Side [place]: Centralizing, Increased pain Lumbar L Side [place]: Increased pain, Peripheralizing Repeated Test Movements - Lumbar Other Lumbar Repeated Test Movements: Yes Other Repeated Test Movements - Lumbar SGIS/L - Symptoms During: increases, centralizing SGIS/L - Symptoms After: centralized LE Strength R Ankle Dorsiflexion (L4): 4+/5 L Ankle Dorsiflexion (L4): 4+/5 Special Tests - Hip and Spine Special Test Comments: seated LAQ w/ passive DF (-) B TREATMENT: Manual Therapy: 1: STM: prone lying STM to B lx and thoracic paraspinals, B Ql's, B upper glutes and R piriformis, clearing sacral border. (increased tone R piriformis) 2: Lx ROM assessement in standing, DF strength test seated and dural assessment seated for repeatedmotion testing. Skilled Intervention: Manual skills to improve joint mobility, ROM, and decrease pain. Utilized anatomy knowledge of the therapist, and assessment of patient's response to intervention. Neuromuscular Re-Education: 1: SGIS in doorway for L lateral shift correction - centralized, increased 2: L lateral shift correction against wall x 10- centralized, increased (taught pt how to step out of shift correction to avoid over correction) 5: hooklying ppt/brace review 5 sec x 10 (cues to avoid excessive flexion when engaging RA) Skilled Intervention: Patient education as noted. Focused on shift correction to centralize pain. Home Exercise Program Assigned: 1: Access Code: [email or web address] URL: [email or web address]/ Date: 11/29/2023 Prepared by: WASHINGTON LEVIN Exercises - Abdominal Bracing - 1 x daily - 7 x weekly - 1-2 sets - 10 reps - 3-5hold - Left Standing Lateral Shift Correction at Wall - Repetitions - 6 x daily - 7 x weekly - 1 sets - 5 reps - 3 second hold 2: -d/c'd ex's pt reported increased radiating pain. Pt to focus on lateral shift correction and abdominal brace. Billing Manual TherapyTreatment Minutes: 15 Neuromuscular Re-Education Treatment Minutes: 29 Skilled Treatment Time Minutes (timed and untimed codes): 44 Total Session Time (minutes): 44 Session Start Time : 1453 Session Stop Time : 1537 Washington Levin PTA documented in this encounterLouis [facility]04-10-2024 NoteHNO ID: [id number] Author: WASHINGTON LEVIN PTA Service: ? Author Type: Freight Brakeman Type: Progress Notes Filed: 11/30/2023 20:07 Note Text: Episode Visit Count: 3 Therapist That Will Accept/Oversee The Plan Of Care: Annemarie Fortune PT, DPT Start of Care Date: 11/15/23 Onset Date: 02/18/23 (unable to provide solid date, ongoing for some time with several months increased since last February 2023) Plan of Care Certification Date: 11/15/23 Next Certification Due Date: 01/14/24 Patient Identified by Name and Date of : Yes REHABILITATION AND SPORTS THERAPY PHYSICAL THERAPY TREATMENT NOTE ASSESSMENT: Judson De La Cruz tolerated the session with decreased symptoms and and improved centralization of pain. She demonstrated centralizing pain with L lateral shift correction against wall. The patient will continue to benefit from ongoing skilled physical therapy to progress toward set goals. PLAN FOR NEXT VISIT: Assess response to HEP modification, L lateral shift correction and STM. SUBJECTIVE: Pt reports pain mostly in LB, travelling into R buttock and ischial tuberosity. Pt reports she is currently living in a nursing home. Pain: Pain Pain Level: 9 Pain Location: Low Back/Lumbar Spine- Midline, Low Back/Lumbar Spine - Right, Hip - Right, Buttocks - Right Post Treatment Pain Post Treatment Pain Level: 6 Post Treatment Pain Location: Low Back/Lumbar Spine- Midline OBJECTIVE MEASURES WITH LEVEL OF FUNCTION: Spine Observations Spine Observations: L lateral shift Lumbar Spine AROM Lumbar Flexion: Major limitation, Pain during movement Lumbar Extension: Major limitation, Pain during movement Lumbar R Side [place]: Centralizing, Increased pain Lumbar L Side [place]: Increased pain, Peripheralizing Repeated Test Movements - Lumbar Other Lumbar Repeated Test Movements: Yes Other Repeated Test Movements - Lumbar SGIS/L - Symptoms During: increases, centralizing SGIS/L - Symptoms After: centralized LE Strength R Ankle Dorsiflexion (L4): 4+/5 L Ankle Dorsiflexion (L4): 4+/5 Special Tests - Hip and Spine Special Test Comments: seated LAQ w/ passive DF (-) B TREATMENT: Manual Therapy: 1: STM: prone lying STM to B lx and thoracic paraspinals, B Ql's, B upper glutes and R piriformis, clearing sacral border. (increased tone R piriformis) 2: Lx ROM assessement in standing, DF strength test seated and dural assessment seated for repeated motion testing. Skilled Intervention: Manual skills to improve joint mobility, ROM, and decrease pain. Utilized anatomy knowledge of the therapist, and assessment of patient's response to intervention. Neuromuscular Re-Education: 1: SGIS in doorway for L lateral shift correction - centralized, increased 2: L lateral shift correction against wall x 10- centralized, increased (taught pt how to step out of shift correction to avoid over correction) 5: hooklying ppt/brace review 5 sec x 10 (cues to avoid excessive flexion when engaging RA) Skilled Intervention: Patient education as noted. Focused on shift correction to centralize pain. Home Exercise Program Assigned: 1: Access Code: [email or web address] URL: [email or web address]/ Date: 11/29/2023 Prepared by: WASHINGTON LEVIN Exercises - Abdominal Bracing - 1 x daily - 7 x weekly - 1-2 sets - 10 reps - 3-5 hold - Left Standing Lateral Shift Correction at Wall - Repetitions - 6 x daily - 7 x weekly - 1 sets - 5 reps - 3 second hold 2: -d/c'd ex's pt reported increased radiating pain. Pt to focus on lateral shift correction and abdominal brace. Billing Manual TherapyTreatment Minutes: 15 Neuromuscular Re-Education Treatment Minutes: 29 Skilled Treatment Time Minutes (timed and untimed codes): 44 Total Session Time (minutes): 44 Session Start Time : 1453 Session Stop Time : 1537 Washington [facility] NoteHNO ID: [id number] Author: TANIKA PADGETT PTA Service: ? Author Type: Freight Brakeman Type: Progress Notes Filed: 11/22/2023 15:28 Note Text: Episode Visit Count: 2 Therapist That Will Accept/Oversee The Plan Of Care: Annemarie Fortune PT, DPT Start of Care Date: 11/15/23 Onset Date: 02/18/23 (unable to provide solid date, ongoing for some time with several months increased since last February 2023) Plan of Care Certification Date: 11/15/23 Next Certification Due Date: 01/14/24 Patient Identified by Name and Date of : Yes REHABILITATION AND SPORTS THERAPY PHYSICAL THERAPY TREATMENT NOTE ASSESSMENT: Judson De La Cruz tolerated the session with increased symptoms. She demonstrated difficulty with all exercises reporting pain after multiple reps of each exercise. Patient reports pain decrease only with static prone lying. The patient will continue to benefit from ongoing skilled physical therapy to progress toward set goals. PLAN FOR NEXT VISIT: Continue Kylah education and posture education. Trial heel lift for lateral shift. SUBJECTIVE: Patient reports increased pain with waist rotation and sciatic nerve glide. Patient reports it takes her 1.5 hour bike ride to get to therapy which causes increased pain in her low back. She reports the only position she does not have pain is lying prone. Pain: Pain Pain Level: 6 Pain Location: Low Back/Lumbar Spine- Midline, Low Back/Lumbar Spine - Right, Hip - Right, Buttocks - Right Post Treatment Pain Post Treatment Pain Level: Worse OBJECTIVE MEASURES WITH LEVEL OF FUNCTION: There were no objective measurements taken on this date. See assessment for patient response to treatment. TREATMENT: Neuromuscular Re-Education: 1: Prone lying x2' (pain decreased to 3/10 in low back) 2: Prone press up to elbows (pain remained 6/10) 3: Extension in standing against table (pain remained 6/10) 4: SKTC RLE x3 (increased pain) 7: Posture education in standing and seated for biking and work demands. Skilled Intervention: Patient education as noted. Self-Correction Management: 1: Discussed how patient is more comfortable in an extension position but her daily living tasks such as her job and having to ride her bike as transportation puts her in a flexed position. Discussed how we need to find a way to reduce pain with her daily activities 2: Discussed alternative routes to get to work and therapy due to patient reporting it taking her 1.5-2 hours to get to therapy and work. Provided map with route which should take 15 minutes to get to work. Skilled Intervention: Skilled judgment in the selection of proper modification for activity of daily living/home management based on clinical presentation, deficits, and needs. Billing Neuromuscular Re-Education Treatment Minutes: 30 Self-Care/Home Management Treatment Minutes: 15 Skilled Treatment Time Minutes (timed and untimed codes): 45 Total Session Time (minutes): 45 Session Start Time : 1330 Session Stop Time : 1415 [facility] of Present illness Narrative* Tanika Padgett CLERK GENERAL - 11/22/2023 1:40 PM EDT Episode Visit Count: 2 Therapist That Will Accept/Oversee The Plan Of Care: Annemarie Fortune PT, DPT Start of Care Date: 11/15/23 Onset Date: 02/18/23 (unable to provide solid date, ongoing for some time with several months increased since last February 2023) Plan of Care Certification Date: 11/15/23 Next Certification Due Date: 01/14/24 Patient Identified by Name and Date of : Yes REHABILITATION AND SPORTS THERAPY PHYSICAL THERAPY TREATMENT NOTE ASSESSMENT: Judson De La Cruz tolerated the session with increased symptoms. She demonstrated difficulty with all exercises reporting pain after multiple reps of each exercise. Patient reports pain decrease only with static prone lying. The patient will continue to benefit from ongoing skilled physical therapy to progress toward set goals. PLAN FOR NEXT VISIT: Continue Kylah education and posture education. Trial heel lift for lateral shift. SUBJECTIVE: Patient reports increased pain with waist rotation and sciatic nerve glide. Patient reports it takes her 1.5 hour bike ride to get to therapy which causes increased pain in her low back. She reports the only position she does not have pain is lying prone. Pain: Pain Pain Level: 6 Pain Location: Low Back/Lumbar Spine- Midline, Low Back/Lumbar Spine - Right, Hip - Right, Buttocks- Right Post Treatment Pain Post Treatment Pain Level: Worse OBJECTIVE MEASURES WITH LEVEL OF FUNCTION: There were no objective measurements taken on this date. See assessment for patient response to treatment. TREATMENT: Neuromuscular Re-Education: 1: Prone lying x2' (pain decreased to 3/10 in low back) 2: Prone press up to elbows (pain remained 6/10) 3: Extension in standing against table (pain remained 6/10) 4: SKTC RLE x3 (increased pain) 7: Posture education in standing and seated for biking and work demands. Skilled Intervention: Patient education as noted. Self-Correction Management: 1: Discussed how patient is more comfortable in an extension position but her daily living tasks such as her job and having to ride her bike as transportation puts her in a flexed position. Discussedhow we need to find a way to reduce pain with her daily activities 2: Discussed alternative routes to get to work and therapy due to patient reporting it taking her 1.5-2 hours to get to therapy and work. Provided map with route which should take 15 minutes to get to work. Skilled Intervention: Skilled judgment in the selection of proper modification for activity of daily living/home management based on clinical presentation, deficits, and needs. Billing Neuromuscular Re-Education Treatment Minutes: 30 Self-Care/Home Management Treatment Minutes: 15 Skilled Treatment Time Minutes (timed and untimed codes): 45 Total Session Time (minutes): 45 Session Start Time : 1330 Session Stop Time : 1415 Tanika Padgett PTA documented in this encounterLouis [facility] NoteHNO ID: [id number] Author: RYAN FORTUNE, PT, DPT Service: ? Author Type: Physical Therapist Type: Progress Notes Filed: 11/17/2023 06:30 Note Text: Episode Visit Count: 1 Therapist That Will Accept/Oversee The Plan Of Care: Annemarie Fortune PT, DPT Start of Care Date: 11/15/23 Onset Date: 02/18/23 (unable to provide solid date, ongoing for some time with several months increased since last February 2023) Plan of Care Certification Date: 11/15/23 Next Certification Due Date: 01/14/24 Patient Identified by Name and Date of : Yes REHABILITATION AND SPORTS THERAPY PHYSICAL THERAPY EVALUATION PLAN OF CARE: Assessment: Judson De La Cruz presents with chief complaint of spine pain that interferes with bending, reaching overhead, kneeling, squatting, working, lifting, heavy exertion, sleeping . She presents with impairments in Activities of daily living's, gait, independence in exercise, joint mobility, overall function, patient reported outcome measures, posture, range of motion, strength, and symptom management. PROMIS? (Patient-Reported Outcomes Measurement Information System) scores were reviewed and identified as a rehabilitation concern. Prognosis for therapy is Fair due to: clinical presentation, multiple co- morbidities, chronic nature of impairments, limited support system, limited tolerance to activity . She will benefit from skilled therapy services to meet the goals established for this plan of care as noted below. Classification Low Back Pain Classification: Central Mechanism/Nociplastic Pain Goals for Episode of Care: created on 11/15/23 through 02/17/24 Patient reported outcome of physical function and self-efficacy will increase T-score by a minimum 5 points. [place] in home exercise program. Patient will decrease pain rating by 2 points to meet minimal clinical important difference for numeric pain rating scale. Patient will increase active ROM of spine movement to WFL without increase in pain > 3/10 to allow patient to improve postural alignment and to improve performance of Activities of daily living's. Patient will demonstrate increase in bilateral lower extremity strength to 4/5 during manual muscle testing after activity in order to improve function for basic self-care tasks and light functional tasks. Perform all activities of daily livings with decreased report of symptoms/pain in 6 weeks by 20%. Improve postural awareness. Patient Goals: less pain Planned Interventions, Frequency, and Duration: Current Frequency: 2x/week Duration: 6 weeks Total Number of Visits Planned: 12 Planned Treatment Interventions: Therapeutic exercise (09430), Neuromuscular re-education (73273), Manual therapy (24708), Therapeutic activities (76070), Self-senior care management (90078), Gait Training (71472), Aquatic PT (28024), Patient/Family/Caregiver Education, E-Stim Unattended (63038), E-Stim Attended/TENS (47210) PLAN FOR NEXT VISIT: initiate POC with focus on symptom modulation, further assessment for potential Kylah. Review of HEP Patient demonstrates fair understanding of plan of care and treatment. The above goals and plan of care were discussed and agreed upon by patient/family. SUBJECTIVE: notes that she is having pain. 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 Had conservative care throughout the years, but worsening with time. Judson indicates that at one time, she was homeless, not available for care options. Has a job now, with a lot of bending, moving, strtching iwth pain in the low back especially on the R side and down the leg and into the groin. Notes history of multiple LE injuries with knee and foot considerations. Medicine (Mobic) is helping but not fully relieving. (told shouldn't be lifting > 25 lbs. Denies any Bowel or bladder changes. 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 nerve ablations years ago. Judson notes heat and TENS only during using) Falls Interview: Fall without injury in the last year ('always fall' almost in the parking lot, or tr (more content not included)...[facility] 11-03-2023 History of Present illness Narrative* Johnathan Pringle MD - 11/03/2023 11:45 AM EDT Johnathan Pringle M.D. ORTHOPEDIC SPINE CONSULT NOTE Date of visit: November 03, 2023 Patient Name: Ms.Michelle Ambrocio De La Cruz Date of : 1980 Current Age: [age] year old Sex: female PCP: No primary care provider on file. Chief Complaint:Patient presents with: New Patient HPI Ms.Michelle Ambrocio De La Cruz has a past medical history of depression, DM type 2, dysmetabolic syndrome, HLD and hypothyroid. Patient presents to the office today as a new patient with radiographic imaging for evaluation of lumbar spine. The patient is self referred for orthopedic spine evaluation. She presented to the Emergency Department on 10/27/2023 for chronic back pain and worsening right sciatic pain. Denied bowel/bladder incontinence. Radiographs were obtained and discharged home with Medrol Dosepak, Motrin and Flexeril for symptom relief. She was discharged back to the homeless nursing home in their care. Today she reports a longstanding history of neck and low back pain that has been worsening. The pain in her neck radiates to her bilateral shoulders and the posterior aspect of her arms to hands withassociated paresthesia. Denies dexterity issues but endorses balance issues. In regards to her low back, pain radiates to bilateral gluteal region to lateral hips into her groin down the posterior aspect of her legs to her calves, right greater than left. Denies bowel/bladder incontinence. She states her legs feel heavy and has numbness as well. Her low back is most bothersome and worsens with walking and standing. She denies recent participation in conservative treatment including geophysical prospecting surveyor apy. Full symptomology and conservative treatment outlined below. Patient presents to the office for image review, evaluation and plan of care. PREVIOUS CONSERVATIVE TREATMENT: 1) Medication: Flexeril, Motrin, Medrol Dosepak (10/27/2023) 2) Physical therapy: No recent participation 3) Pain Management: No recent participation 4) Injections: No recent injections PREVIOUS SPINE SURGERY: Denies Surgical Risk Factors: Smoking status: Former Anticoagulants/antiplatelets: No Diabetic: Yes, last hgbA1c 5.1% from 12/09/2021 BMI: 47.250 REVIEW OF SYSTEMS: Review of Systems Constitutional: Negative for chills, fatigue, fever and unexpected weight change. HENT: Negative for trouble swallowing and voice change. Eyes: Negative for visual disturbance. Respiratory: Negative for shortness of breath, wheezing and stridor. Cardiovascular: Negative for chest pain, palpitations and leg swelling. Gastrointestinal: Negative for diarrhea, nausea and vomiting. Endocrine: Negative for cold intolerance and heat intolerance. Genitourinary: Negative for difficulty urinating, dysuria and urgency. Musculoskeletal: Positive for back pain and neck pain. Negative for gait problem. Skin: Negative for color change and pallor. Allergic/Immunologic: Negative for immunocompromised state. Neurological: Positive for numbness. Negative for speech difficulty, weakness and headaches. Hematological: Does not bruise/bleed easily. Psychiatric/Behavioral: Negative for agitation, behavioral problems and confusion. OBJECTIVE: BP 130/86 (BP Site: Left Arm, BP Position: Sitting, BP Cuff Size: Large Adult) Pulse 86 Ht 4' 8 (1.422 m) Wt 212 lb 15.4 oz (96.6 kg) LMP 09/03/2015 SpO2 100% BMI 47.75 kg/m PHYSICAL EXAM: 5/5 motor strength in BUE and BLE SILT throughout extremities +bilateral nam's sign Data Review: XR of lumbar spine from 10/27/2023: IMPRESSION: No acute findings. Bilateral L5 spondylolysis with grade 1 spondylolisthesis and degenerative disc disease. Levoscoliosis. ASSESSMENT/PLAN Judson De La Cruz will continue with medical management of his/her condition. L5-S1 degenerative spondylolisthesis PT ordered For pain management purposes mobic was prescribed if tolerated and if the patient knows of no allergies or contraindications. The risks and complications of these medications were discussed. The patient understands that if they are currently taking a NSAIDs or are prescribed one in the future they should not take Advil, Aleve, ibuprofen, naproxen or other OTC NSAIDs. They were also told that if any unusual symptoms develop, that the medication should be stopped immediately and that their primary care physician as well as our office should be notified. If they take this medication detention, they understand the need for medication monitoring through their primary care physician. They are aware of the potential risks and side effects of this medication as well as the expected benefits, and wishes to proceed with its use. If not improving with above treatment modalities, recommend follow up with me in 8 weeks for evaluation. Physical therapy ordered, follow-up in 8 weeks Attribution The following portions of the patient's history were reviewed, confirmed, and updated as necessary:allergies, current medications, past family history, past medical history, past social history, past surgical history, problem list, HPI, and ROS obtained by others.The following information can be found in electronic health record. Some elements may be copied from a previous office note and have been reviewed/updated where appropriate. All portions reflect current medical decision making from today. The clinical and radiographic findings as well as the risks, benefits and alternatives of treatmenthave been reviewed in detail with the patient. Advised to call the office if symptoms worsen or new symptoms develop.Patient expressed understanding and is in agreement with plan. Johnathan Pringle MD Department of Orthopaedics [facility] This note was partially generated using [employer] voice recognition system, and there may be some incorrect words, spellings, and punctuation that were not noted in checking the note before saving. documented in this encounterLouis Stokes Cleveland [facility]03-08-2024 NoteHNO ID: [id number] Author: ANAMIKA TORRES RT(Judy) Service: Radiology Author Type: Alumni Relations Manager Type: Progress Notes Filed: 10/27/2023 16:57 Note Text: Radiology Service Progress Note PATIENT NAME: Judson De La Cruz DATE OF SERVICE: October 27, 2023 TIME: 4:57 PM PATIENT IDENTITY VERIFICATION COMPLETED USING TWO (2) IDENTIFIERS: Name and Date of confirmed by patient verbally. FALL SCREENING: Has the patient had 2 falls in the last year or 1 fall with injury or currently using an Ambulatory Assistive Device (Walker, Cane, Wheelchair, Crutches, etc.)? Emergency Room Patient: Screened in ED PATIENT GENDER DATA: Female. status: : No status: NO. PATIENT RELEVANT IMPLANT DATA REVIEWED: Not Applicable PATIENT PRESENTS WITH AN IMPLANTABLE OR ATTACHED EMBEDDED SOFTWARE DEVELOPMENT ENGINEER: No RADIOLOGY DEPARTMENT: General X-ray: Exam(s) Completed: Spine X-Ray(s): Lumbar AP / LAT / L5-S1 PERIPHERAL IV DATA: Not applicable SIGNED BY: RT Nannette(R) October 27, 2023 4:57 PMIndiana University Health Arnett [id number] Miscellaneous Notes* Telephone Encounter - Claudia Martinez RN - 09/25/2023 1:54 PM EST Ms. De La Cruz is requesting a refill of her Metformin which was RX by [facility] Dr. Laya Chanel.She denies any new or worse symptoms that a provider is not aware of. I cond her to Dr. Chanel's office [phone] GO TO THE EMERGENCY ROOM OR CALL 911 IF: * You develop any new symptoms * Your condition worsens * You are concerned or anxious about your condition for any other reason. I documented in this encounterLouis Stokes [facility] Center12-09-2023 NoteHNO ID: [id number] Author: Nika Smith RT(R) Service: ? Author Type: Technologist Type: Progress Notes Filed: 07/29/2023 12:30 AM Note Text: Radiology Service Progress Note PATIENT NAME: Judson De La Cruz DATE OF SERVICE: July 29, 2023 TIME: 12:30 AM PATIENT IDENTITY VERIFICATION COMPLETED USING TWO (2) IDENTIFIERS: Name and Date of confirmed by patient verbally. FALL SCREENING: Has the patient had 2 falls in the last year or 1 fall with injury or currently using an Ambulatory Assistive Device (Walker, Cane, Wheelchair, Crutches, etc.)? Emergency Room Patient: Screened in ED PATIENT GENDER DATA: Female. status: : No status: NO. PATIENT RELEVANT IMPLANT DATA REVIEWED: Not Applicable RADIOLOGY DEPARTMENT: General X-ray: Exam(s) Completed: Chest X-Ray PERIPHERAL IV DATA: Not applicable SIGNED BY: RT Constantin(R) July 29, 2023 12:30 AMIndiana University Health Arnett HospitalNcgrdzjs56-17-0930 NoteHNO ID: [id number] Author: Jennifer Lemus RT(R) Service: Radiology Author Type: Technologist Type: Progress Notes Filed: 07/27/2023 2:55 PM Note Text: Radiology Service Progress Note PATIENT NAME: Judson De La Cruz DATE OF SERVICE: July 27, 2023 TIME: 2:55 PM PATIENT IDENTITY VERIFICATION COMPLETED USING TWO (2) IDENTIFIERS: Name and Date of confirmed by patient verbally. FALL SCREENING: Has the patient had 2 falls in the last year or 1 fall with injury or currently using an Ambulatory Assistive Device (Walker, Cane, Wheelchair, Crutches, etc.)? Emergency Room Patient: Screened in ED PATIENT GENDER DATA: Female. status: : No status: NO. PATIENT RELEVANT IMPLANT DATA REVIEWED: Not Applicable RADIOLOGY DEPARTMENT: General X-ray: Exam(s) Completed: Upper Extremity X-Ray(s): Hand, left PERIPHERAL IV DATA: Not applicable SIGNED BY: RT Rachael(R) July 27, 2023 2:55 [facility] [id number] NoteHNO ID: [id number] Author: Justin Evans RT(R) Service: Radiology Author Type: Technologist Type: Progress Notes Filed: 07/10/2023 10:23 PM Note Text: Radiology Service Progress Note PATIENT NAME: Judson De La Cruz DATE OF SERVICE: July 10, 2023 TIME: 10:23 PM PATIENT IDENTITY VERIFICATION COMPLETED USING TWO (2) IDENTIFIERS: Name and Date of confirmed by patient verbally. FALL SCREENING: Has the patient had 2 falls in the last year or 1 fall with injury or currently using an Ambulatory Assistive Device (Walker, Cane, Wheelchair, Crutches, etc.)? Emergency Room Patient: Screened in ED PATIENT GENDER DATA: Female. status: : No status: NO. PATIENT RELEVANT IMPLANT DATA REVIEWED: Not Applicable RADIOLOGY DEPARTMENT: General X-ray: Exam(s) Completed: Chest X-Ray PERIPHERAL IV DATA: Not applicable SIGNED BY: RT Nikos(R) July 10, 2023 10:23 PMIndiana University Health Arnett [id number] NoteHNO ID: [id number] Author: Nika Smith RT(R) Service: ? Author Type: Technologist Type: Progress Notes Filed: 07/01/2023 2:30 AM Note Text: Radiology Service Progress Note PATIENT NAME: Judson De La Cruz DATE OF SERVICE: July 01, 2023 TIME: 2:29 AM PATIENT IDENTITY VERIFICATION COMPLETED USING TWO (2) IDENTIFIERS: Name and Date of confirmed by patient verbally. FALL SCREENING: Has the patient had 2 falls in the last year or 1 fall with injury or currently using an Ambulatory Assistive Device (Walker, Cane, Wheelchair, Crutches, etc.)? Emergency Room Patient: Screened in ED PATIENT GENDER DATA: Female. status: : No status: NO. PATIENT RELEVANT IMPLANT DATA REVIEWED: Not Applicable RADIOLOGY DEPARTMENT: General X-ray: Exam(s) Completed: Lower Extremity X-Ray(s): Knee, AP / LAT Right Upper Extremity X-Ray(s): Elbow, right and Wrist, left PERIPHERAL IV DATA: Not applicable SIGNED BY: RT Constantin(R) July 01, 2023 2:29 AMIndiana University Health Arnett [id number] Hospital Discharge instructions Patient Education 06/28/2023 11:10:00 Medical Screening Exam, Nonemergent Medical Screening Exam: No Emergency You have had a medical screening exam. The results show that you don t have a condition that needs to be treated in the emergency department. You can safely wait until you can see your healthcare provider for evaluation or treatment. It is up to you to make an appointment for follow-up care. Medical emergencies If you think you have a medical emergency, please come to the emergency department. That s what we are here for. A medical emergency might be severe pain. It might be a condition that gets worse. Or it might be problems with a . The emergency department is open to all who need treatment. But if you don t think you have a serious or life-threatening problem, try these other choices. If you have a primary care doctor: Call your doctor before coming to the emergency department. After office hours, someone from your doctor s office is on-call by phone. The person on-call may be able to give you advice over the phone on how to take care of the problem You may be able to get an appointment to see your doctor. If you don t have a primary care doctor: Call the referral doctor or clinic shown below during office hours. You should be able to make an appointment to be seen. If you aren t sure whether you are having an emergency, you can always return to the emergency department to be looked at. Phone advice from the emergency department We are here 24 hours a day to give emergency care. But this hospital does not give phone advice formedical conditions. If you need advice for a condition that can t wait to be seen by your doctor, you will need to come back to this facility in person. [phone] [facility]. [address] [place] [address]. All rights reserved. This information is not intended as a substitute for professional medical care. Always follow yourhealthcare professional's instructions. 06/28/2023 01:30:43 Adjustment Disorder Adjustment Disorder Life changes work, family, parents, children each can cause a great deal of stress in life. An adjustment disorder means you have trouble dealing with this change and stress. This problem can have serious results. You may feel helpless, depressed, make bad decisions, or even feel like you want to hurt yourself. Adjustment disorder can cause anxiety or depression. It is triggered by daily stresses such as: of a loved one Divorce Marriage General life changes such as changing or leaving a job Moving Illness or other health issue for you or a family member Sex Money Symptoms may include: Sadness or crying Anxiety Insomnia Poor concentration Trouble doing simple things New problems at work or with family or friends Loss of self-esteem Sense of hopelessness Feeling trapped or cut off from others With this condition, it is common to feel sad, guilty, hopeless, and restless. These feelings may continue for weeks or months. It can be helpful to identify what is causing the additional stress andtake steps to get extra support. If new stressful events do not happen, it is likely that you will gradually start feeling better. Home care If you have been given a prescription for medicine, take it as directed. It helps to talk about your feelings and thoughts with family or friends who understand and supportyou. Follow-up care Follow up with your healthcare provider, or therapist as advised. Let them know if this condition does not improve or gets worse. When to seek medical advice Call your healthcare provider right away if any of these happen: Worsening depression or anxiety Feeling out of control Thoughts of harming yourself or another Being unable to care for yourself [employer]. [address] [place] [address]39. All rights reserved. This information is not intended as a substitute for professional medical care. Always follow yourhealthcare professional's instructions. Follow Up Care 06/27/2023 19:10:09 With:NONE PHYSICIAN Address:Unknown When:2-4 days With:As per social group worker Address:Unknown When:2-4 days Comments:Return to ED if symptoms worsen With:[facility] [employer] Address: [address] [place] [phone] Business (1) When:2-4 days Comments:Schedule appointment as soon as possibleReturn to ED if symptoms worsen With:[facility] Address: [address] [place] [phone] Business (1) When:2-4 days Comments:Schedule appointment as soon as possibleReturn to ED if symptoms worsen [facility] 11-08-2023 Emergency department Discharge summary Discharge Instructions Thank you for allowing [facility] to assist you with your healthcare needs. The following is importantdischarge information regarding your hospital visit. Diagnosis from Today's Visit Depression What to Do Next Instructions from Your Care Team No qualifying data available. Post Acute Orders No qualifying data available. You Need to Schedule the Following Appointments Follow Up with NONE PHYSICIAN When Within 2-4 days Follow Up with As per social group worker When Within 2-4 days Why: Return to ED if symptoms worsen Follow Up with [facility] [employer] When Within 2-4 days Why: Schedule appointment as soon as possible Return to ED if symptoms worsen Where: [address] [place] [phone] Business (1) Follow Up with [facility]) When Within 2-4 days Why: Schedule appointment as soon as possible Return to ED if symptoms worsen Where: [address] [place] [phone] Business (1) Allergies Tape Medications Please ask your primary doctor or pharmacist before taking any other medication not listed, including over the counter drugs, herbal medications, vitamins and or supplements as they may interact withyour home medications. What How Much When Instructions Last Dose Unchanged levothyroxine (levothyroxine 100 mcg (0.1 mg) oral tablet) 1 tab(s) by mouth Once a day Unchanged medroxyPROGESTERone (medroxyPROGESTERone 10 mg oral tablet) See instructions 1 tab(s) Oral Unchanged metFORMIN (metFORMIN 1000 mg oral tablet (IR)) 1 tab(s) by mouth Two (2) times a day Please take this list to your next doctor s visit. Bring all medications you take, including over the counter medications, herbals and other supplements with you to your doctor s visit. Patients and families are reminded to discard old lists and to update any records with all medication providers or retail pharmacies. Education Materials Medical Screening Exam: No Emergency You have had a medical screening exam. The results show that you don t have a condition that needs to be treated in the emergency department. You can safely wait until you can see your healthcare provider for evaluation or treatment. It is up to you to make an appointment for follow-up care. Medical emergencies If you think you have a medical emergency, please come to the emergency department. That s what we are here for. A medical emergency might be severe pain. It might be a condition that gets worse. Or it might be problems with a . The emergency department is open to all who need treatment. But if you don t think you have a serious or life-threatening problem, try these other choices. If you have a primary care doctor: Call your doctor before coming to the emergency department. After office hours, someone from your doctor s office is on-call by phone. The person on-call may be able to give you advice over the phone on how to take care of the problem You may be able to get an appointment to see your doctor. If you don t have a primary care doctor: Call the referral doctor or clinic shown below during office hours. You should be able to make an appointment to be seen. If you aren t sure whether you are having an emergency, you can always return to the emergency department to be looked at. Phone advice from the emergency department We are here 24 hours a day to give emergency care. But this hospital does not give phone advice formedical conditions. If you need advice for a condition that can t wait to be seen by your doctor, you will need to come back to this facility in person. [id number] [employer]. [address] [place] [address] 30501. All rights reserved. This information is not intended as a substitute for professional medical care. Always follow yourhealthcare professional's instructions. Adjustment Disorder Life changes work, family, parents, children each can cause a great deal of stress in life. An adjustment disorder means you have trouble dealing with this change and stress. This problem can have serious results. You may feel helpless, depressed, make bad decisions, or even feel like you want to hurt yourself. Adjustment disorder can cause anxiety or depression. It is triggered by daily stresses such as: of a loved one Divorce Marriage General life changes such as changing or leaving a job Moving Illness or other health issue for you or a family member Sex Money Symptoms may include: Sadness or crying Anxiety Insomnia Poor concentration Trouble doing simple things New problems at work or with family or friends Loss of self-esteem Sense of hopelessness Feeling trapped or cut off from others With this condition, it is common to feel sad, guilty, hopeless, and restless. These feelings may continue for weeks or months. It can be helpful to identify what is causing the additional stress andtake steps to get extra support. If new stressful events do not happen, it is likely that you will gradually start feeling better. Home care If you have been given a prescription for medicine, take it as directed. It helps to talk about your feelings and thoughts with family or friends who understand and supportyou. Follow-up care Follow up with your healthcare provider, or therapist as advised. Let them know if this condition does not improve or gets worse. When to seek medical advice Call your healthcare provider right away if any of these happen: Worsening depression or anxiety Feeling out of control Thoughts of harming yourself or another Being unable to care for yourself [phone] [employer] [place] [address] 81196. All rights reserved. This information is not intended as a substitute for professional medical care. Always follow yourhealthcare professional's instructions. Additional Information VACCINATE! IT SAVES LIVES! Members of the community who have not yet received the COVID-19 vaccine and would like to receive it can visit one of [facility] vaccine clinics. There are many vaccine clinic locations within the [facility]. For locations and available times, please visit www.gettheshot.coronavirus.[place].gov/. It is important to note that some COVID mobile vaccine clinics are held outdoors and may be canceled in rainy or stormy conditions. To learn more about pediatric vaccinations (ages 5-11), we invite you to visit the [facility] webpage. https://www.[email or web address].org/pages/[email or web address]-Akapz-Twixoogkvll-Zohqksswrl-Tmgoe-Bgc stions.htmlTo learn more about the COVID-19 vaccine, we invite you to visit the CDC website for a list of frequently asked questions. https://www.cdc.gov/coronavirus/2019-ncov/vaccines/faq.html [employer] [facility] Patient Portal Access Instructions: Stay connected with your healthcare team and access your personal medical information anytime with the [facility] Patient Portal. If you would like a full copy of your medical records please contact the [facility] Medical Records Department Monday through Monday between 8a.m. and 4:30p.m. Please follow the directions below to access the portal: 1.Access the email account you provided upon registration to the hospital.2.Look for an invitation email from [facility].3.Open the email and access the invitation link: Accept Invitation to [facility]4.Fill in the required jason to create your account. Sign into www.[facility] with your username and password that you created in the above steps to stay up to date. You can then view a summary of results, a summary of your visits, and the ability to download your summaries to your computer or send the information securely to a physician. Remember that your healthcare information is confidential, so carefully consider who you will allow to register on the [facility] Patient Portal for access to your information. You can also access the [facility] [employer] [facility] Patient Portal on the [employer] jessica. Simply click on Health Records under [employer] and then click on the [employer] logo. HOW TO SAFELY DISPOSE OF PRESCRIPTION MEDICATIONS Please use one of the following methods to safely dispose of your unused medications. 1.Use a drug disposal kit: the drug disposal pouch allows you to safely discard your old and unuseddrugs. Ask your nurse to give you one when you are discharged.2.Visit a local take-back location: Many local pharmacies and police departments have programs that collect old and unwanted prescriptiondrugs. Call your local pharmacy or go to http://[employer].Make YES! Happen/3K3Dq3v to find one close to you.3.Make use of household items: Use cat litter or old coffee grounds to dispose medications if other options arenot available. Mix your drugs with these household products, seal them in an airtight container andthrow it into the garbage. Call [facility]: [phone] to be sure your drugs can be disposed of in this way. Some medicines may require a different approach.4.Never flush your medications down the toilet. IF YOU HAVE BEEN PRESCRIBED AN OPIOIDS FOR PAIN If you have been prescribed an opioid (such as hydrocodone, oxycodone or morphine), it is critical to understand the possible side effects and risks of opioid pain medications. Even when taken as directed, opioids can have several side effects including: Tolerance, meaning you might need to take more of a medication for the same pain relief. Nausea, vomiting and/or constipation. Sleepiness, dizziness, dry mouth, confusion, depression or itching. Physical dependence, meaning you have withdrawal symptoms when a medication is stopped ? this can develop within a few days. KNOW YOUR RESPONSIBILITIES It is important to know exactly how much and how often to take the opioid pain medications you are prescribed. Never take opioids in higher amounts or more often than prescribed. Do not combine opioids with alcohol or other drugs that cause drowsiness, such as benzodiazepines, also known as benzos,including diazepam and alprazolam, muscle relaxants or sleep aids. Never sell or share prescriptionopioids. This is illegal. Store opioids in a secure place and out of reach of others (including children, family, friends and visitors). The last page(s) of this document has been signed and retained as a CHART COPY Signatures Patient Education Materials Medical Screening Exam, Nonemergent Adjustment Disorder Medication Leaflets My discharge plan and instructions have been reviewed and explained to me and IJONO MICHELLE L understand my current condition and have read and understand these discharge instructions. I have received a written copy of the plan/instructions. If I have questions, I am aware that I should contact my doctor. Patient/Strategic Planning Specialist Signature: Date/Time: Relationship to Patient: Witness Name/Signature: Date[facility]Time[id number] Miscellaneous Notes* Telephone Encounter - Ruthie Smith MA - 03/09/2023 1:32 PM EDT Called pt and could not leave vm due to her vm being full. Pt does not use mychart. The pt was last seen 12/29/21 and last labs were 12/09/21. The prescription is now and Pt will need to be seen by Gillian Olivo APRN, CNP in order to have a refill processed and sent to [facility] pharmacy. Pt will need to establish an endocrinology provider in her current state to continue this medication. Ruthie Smith MA * Telephone Encounter - Shakira Auguste Ma - 03/09/2023 11:43 AM EDT Patient calling stating she has moved to [place]. She needs a refill sent there. formatted Patient has been identified by name and date of : Yes Requested Prescriptions Pending Prescriptions Disp Refills levothyroxine (SYNTHROID) 100 mcg tablet 90 tablet 3 Sig: Take 1 tablet by mouth once daily. RX INSTRUCTIONS: Patient aware RX will be sent to pharmacy. No need to notify patient. Shakira Auguste Ma documented in this encounterLouis Stokes Cleveland [facility]04-28-2023 NoteAccession #: [id number] Date of Procedure: 12/16/2022 Pathologist: DIONNA VICTORIA MD Date Reported: 12/29/2022 Date Received: 12/20/2022 Submitting Physician: SHAWNEE DILL Attending Physician: SHAWNEE DILL FINAL CYTOLOGICAL INTERPRETATION Squamous and/or Glandular Abnormality A. THINPREP PAP CERVICAL: Specimen adequacy: SATISFACTORY FOR EVALUATION. Quality Indicator: Endocervical/transformation zone component is present. General Categorization: EPITHELIAL CELL ABNORMALITY - SQUAMOUS CELL. See Interpretation. Descriptive Interpretation: ATYPICAL SQUAMOUS CELLS, CANNOT EXCLUDE HIGH GRADE SQUAMOUS INTRAEPITHELIAL LESION (ASC-H) - CERVIX. Marketing Communications Coordinator: Lena Batista MD HIGH RISK HPV TEST RESULT: HPV GENOTYPE 16 NEGATIVE HPV GENOTYPE 18 NEGATIVE HPV GENOTYPE OTHER NEGATIVE Reference Range: Negative Testing for high-risk (HR) type of human papilloma virus (HPV) is performed by the Jatin raciel HPV Test. The raciel HPV Test is a qualitative polymerase chain reaction that amplifies DNA of HPV16, HPV18 and 12 other high-risk HPV types (31, 33, 35, 39, 45, 51, 52, 56, 58, 59, 66, and 68) associated with cervical cancer and its precursor lesions. A positive result indicates the presence of HPV DNA due to one or more of the 14 genotypes: 16, 18, 31, 33, 35, 39, 45, 51, 52, 56, 58, 59, 66, and 68. Negative results indicate HPV DNA concentrations are undetectable or below the pre-set threshold for detection. False negative results may be associated with unoptimized sampling. A negative HR HPV result does not exclude the possibility of future cytologic HSIL or underlying CIN2-3 or cancer. This test is approved for cervical specimens by the US Food and Drug Administration. Results of this test should be interpreted in conjunction with the patient?s Pap test results. Please refer to ASCCP current guidelines for the use of HPV DNA testing, result interpretation, and patient management. The performance of this test was verified by the [facility] at [facility]. The lab is certified under the Clinical Laboratory Amendments of 1988 (CLIA 88) as qualified to perform high complexity clinical laboratory testing. This specimen has been analyzed by the [employer] Imaging System ([employer].), an automated imaging and review system, which assists the laboratory in evaluating cells on ThinPrep Pap tests. Following automated imaging, selected jason from every slide were reviewed by a enterprise services manager and/or pathologist. Electronically Signed Out By DIONNA VICTORIA MD/NATHALIA/DAMIR By the signature on this report, the individual or group listed as making the Final Interpretation/Diagnosis certifies that they have reviewed this case. Diagnostic interpretation performed at [address] [place] [id number] Educational Note: Cervical cytology is a screening procedure primarily for squamous cancers and precursors and has associated false-negative and false-positive results as evidenced by published data. Your patient?s test should be interpreted in this context, together with patient?s history and clinical findings. Regular sampling and follow-up of unexplained clinical signs and symptoms are recommended to minimize false negative results. Clinical History Date of Last Menstrual Period: unknown Other Clinical Conditions: COTEST HPV(Genotype) except for ASC-H, HSIL, Carcinoma - Include HPV Genotype testing Clinical Diagnosis History: Well woman exam with routine gynecological exam - (Z01.419) Source of Specimen A: THINPREP PAP CERVICAL [facility] Department of Pathology [address] [place], [place] [address]Comment on above:Performed By: #### C #### [facility] Cytology [address] [place] [address] [phone] Miscellaneous Notes* Telephone Encounter - Lester Lopez - 10/14/2022 1:27 PM EST Patient calling back in for an update on letter. Patient was advised that Dr. Chanel would need to sign off on the letter and any possible forms the patient may have with them. [facility] the forms, if any, that will need to be signed by provider. Advised the patient to bring any forms in before Monday10/19/22 so the provider has time to sign them. Patient will still need a letter as well with Name, Date, and diagnoses. * Telephone Encounter - Jonatan Gregory APRN.CNP - 10/13/2022 2:45 PM EST I have not seen or assessed this patient. I will defer to Dr. Chanel regarding requested letter. Jonatan Pieronek, BULLET CASTING OPERATOR.COMMUNITY LIAISON * Telephone Encounter - Lester Lopez - 10/13/2022 11:04 AM EST Patient calling in for a letter from Dr. Chanel to Welfare about the patient and their conditions. Patient requested it include name, date, and conditions about the patient so they may continue receiving welfare help. Provider is out on vacation until Monday and the patient is asking we fax this letter over on Monday10/14/22. Patient is also asking to come lemon picker a copy as well for a back-up plan from the office in the afternoon of 10/14/22. Please Advise documented in this encounterLouis Stokes [facility] Center10-11-2022 History of Present illness Narrative* Leoncio Meadows PA-C - 05/31/2022 10:31 AM EDT Patient presented the office today for evaluation of infrapatellar bursitis. Patient was seen at [facility] urgent care [place] and started on a Medrol Dosepak 2 days ago. States she has had resolution of her symptoms at this time. She will follow-up as needed. documented in this encounterLouis Stokes [facility] Center07-05-2022 Miscellaneous Notes* Telephone Encounter - Nuvia Clark MA - 02/22/2022 8:39 AM EDT Requester: Pharmacy Patients last Endocrinology visit occurred 12/24/2021 . Follow-up evaluation has been established none. Pending Prescriptions Disp Refills LEVOTHYROXINE 100 MCG TABLET 30 tablet 0 Sig: TAKE ONE TABLET BY MOUTH ONCE DAILY CHATA: Yes If patient is due for an appointment please route to provider for refill consideration and also to the endo scheduling pool. PSS NOTE: Patient needs scheduled appointment No documented in this encounterLouis Stokes Cleveland [facility] Center06-08-2022 Miscellaneous Notes* Telephone Encounter - Flora Loomis RN - 01/26/2022 12:51 PM EDT Patient calling. Was taking phentermine 37.5mg tablet beginning last month, ordered 01/10/22. On 01/17 she says she began feeling strange, unfocused, almost like she was drunk. Stopped the medication after that dose. Feels she is back to normal now Would like to discuss options? Has OV f/u on 02/09. Hopes to be able to keep the appt, awaiting call back for employment opportunity. Detailed messages ok to [phone] documented in this encounterLouis Stokes [facility] Center05-23-2022 Miscellaneous Notes* Addendum Note - Farzana De Leon V, MD - 01/10/2022 12:44 PM EDT Addended by: FARZANA DE LEON on: 01/10/2022 12:44 PM Modules accepted: Orders * Telephone Encounter - Farzana De Leon V, MD - 01/10/2022 12:44 PM EDT The following approved medication requests have been transmitted electronically. Signed Prescriptions Disp Refills Phentermine HCl (ADIPEX-P) 37.5 mg tablet 30 tablet 0 Sig: Take 1 tablet by mouth once daily for 30 days. ADDI Class: C-IV CHATA: No Authorizing Provider: FARZAAN DE LEON MD * Addendum Note - Carlee Holloway RN - 01/10/2022 12:11 PM EDT Addended by: CARLEE HOLLOWAY on: 01/10/2022 12:11 PM Modules accepted: Orders * Telephone Encounter - Carlee Holloway RN - 01/10/2022 12:09 PM EDT Requester: Patient Patients last Endocrinology visit occurred 12-29-21. Follow-up evaluation has been established 02-09-22. Pending Prescriptions Disp Refills PHENTERMINE 37.5 MG TABLET 30 tablet 0 Sig: Take 1 tablet by mouth once daily for 30 days. ADDI Class: C-IV CHATA: No If patient is due for an appointment please route to provider for refill consideration and also to the endo scheduling pool. PSS NOTE: Patient needs scheduled appointment No * Telephone Encounter - Preeti Santamaria - 01/10/2022 11:53 AM EDT Cancelled pt's appt w/ Dr De Leon/ pt previously scheduled for 02/09. Pt reports she needed appt in December to get rx. Please advise documented in this encounterLouis Stokes [facility] Center05-11-2022 Instructions* Patient Instructions* Farznaa De Leon V, MD - 12/29/2021 1:42 PM EDT You have been prescribed Phentermine (adipex) for appetite control. This medication can be taken for 3 consecutive months. To get your next month of Phentermine prescribed, you are required to have an office visit either in person or virtually every 4 weeks +/- 7 days with the prescribing provider. If you are more than a few days overdue for an appointment, it is considered a gap in treatment andwe will not be able to give you a script to continue the medication at that time. A six month break is required before Phentermine can be restarted whether stopped due to gap in treatment or finished 3 month course of treatment per the [place] Board [employer] Pharmacy. To schedule your nextappointment please call [phone] or [phone]. Current list of Weight Management Providers [facility] [facility] F20/ [facility] X20 o Teresita Humphries NP o Rita Martinez NP o Dr. Burguera o Dr. Luis Liao [place] o Kiana Resendiz PROCESSING ARCHIVIST o Marilyn Blank PROCESSING ARCHIVIST o Sheila Dupree NP o Dr. Kiko Rankin [place] o Ree Mcgowan NP o Dr. Osvaldo Diaz [place] o Poonam Pearson PROCESSING ARCHIVIST o Olya Soriano NP o Dr. Cuca Horne documented in this encounterLouis Stokes [facility]05-11-[facility]22 History of Present illness Narrative* Farzana De Leon V, MD - 12/29/2021 1:13 PM EDT Endocrinology Medical Weight Management Initial Visit Judson De La Cruz is a 41 year old patient who presents today for evaluation for medical weight loss. History of Present Illness: Duration: adult life Modifying factors:Gradual Severity:Moderate Weight history: High school:150lbs Previous efforts: diet, exercise and keto diet Steroid use: no Diet: She is not on diet. She usually eats 2 meals each day. B: egg/oatmeal/khan/sausage L: tuna fish sandwich/turkey/khan/chicken/salad D: chilli/cheese /stir mcintyre S:chips/desserts Lactose intolerant Eats out : likes to eats sweets dessert Appetite: The patient's appetite has not been controlled.The patient is not taking a weight loss medication. Physical Activity: Knees are bad is not exercising at this time. Sleep Quality: She reports sleeping fairly and is getting 6 hours of sleep a night. PROMISE NO ; CPAP NO Stress: The patient indicates a stress level of 10 (1-low stress, 10-high stress) caused by job and health issues. Social: Live sby herslef Used to work at [employer] The patient's Co-Morbidities include :Reflux , pre diabetes General: AO X3 Skin: skin color, texture, turgor normal, no rashes or lesions. Eyes: Anicteric sclera. Neck: normal Abdomen: soft, non-tender, Extremities: no edema Peripheral Pulses: posterior tibial and doralis pedis pulses 2+ Objective: BP 113/69 Pulse 93 Resp 16 Ht 142.2 cm (4' 8) Wt 93.4 kg (206 lb) LMP 09/03/2015 BMI 46.18 kg/m Data reviewed: Allergies,Current Medications,Past Medical, Surgical and Social History were reviewed with patient and in [facility] EMR LABS: No results found for: TRIG HDL Cholesterol Date Value Ref Range Status 03/28/2013 27 (L) >55 mg/dL Final LDL Cholesterol Date Value Ref Range Status 03/28/2013 135 (H) 60 - 129 mg/dL Final Cholesterol, Total Date Value Ref Range Status 03/28/2013 236 (H) 100 - 199 mg/dL Final Hemoglobin A1C (POCT) Date Value Ref Range Status 12/09/2021 5.1 4.2 - 5.6 % Final Comment: Location:[facility], [id number] [place] [address], [place], [place], [address] Point of care (POC) Hemoglobin A1c (HGBA1C) testing is intended to assess glucose control and provide a management tool for patients known to have diabetes and their healthcare providers. Target HGBA1C levels may depend on specific clinical circumstances. POC HGBA1C is not intended for use as a diagnostic or screening test; laboratory-based testing should be used for diagnostic purposes. The following information is supplemental and may not be applicable to specific diabetes management situations: The POC device shingle trimmer provides a normal range of 4.2% to 6.5% for the HGBA1C POC test. However, the [place] [employer] guidelines indicate that patients with HGBA1C in the range of 5.7% to 6.4% are at increased risk for development of diabetes and that intervention by lifestyle modification may be beneficial. A HGBA1C level greater than or equal to 6.5% is considered diagnostic of diabetes, pending confirmatory testing. Use of HGBA1C testing to evaluate glucose control may not be appropriate for patients with hemoglobin variants or other conditions (e.g. anemia) that alter red blood cell lifespan. TSH Date Value 12/14/2021 3.670 mIU/L 06/26/2018 0.234 uU/mL 03/28/2013 3.080 uU/mL ) 5.1 (12/09/2021) Impression and Plan: 1. Obesity: -Obesity Class III - BMI 40 or > 40 kg/m2. This type of obesity is also referred to as severe, extreme, or morbid obesity Discussed in detail about the pathophysiology of Obesity, the exacerbating factors including but not limited to lifestyle, diet choice, hormonal issues, stress and sleep issues. Discussed management strategy and different options like diet programs, weight loss medications andsurgery Also discussed the option of SMA for weight management--declined as she does not have acces to computer for the VSMA Modifiable factors: Diet and lifestyle: Advised to do a low carb diet rather than low calorie. Community Specialist visit ordered. Sleep: defer sleep study test for now Stress:Psychologist referral Exercise: referral to school patrol I spent a total of 60 minutes on the date of the service which included preparing to see the patient, [id number] patient care, completing clinical documentation, obtaining and/or reviewing separately obtained history, performing a medically appropriate examination, counseling and educating the pat ient/family/caregiver, ordering medications, tests, or procedures, communicating with other HCPs (not separately reported), independently interpreting results (not separately reported), communicatingresults to the patient/family/caregiver and care coordination (not separately reported). Medical Decision Making Farzana De Leon MD documented in this encounterLouis Stokes Cleveland [facility] Center04-21-2022 Instructions* Patient Instructions* Laya Chanel MD - 12/09/2021 9:36 AM EDT Try to avoid or limit carbohydrates such as bread, rice, pasta, potatoes, corn, crackers, chips, pretzels, popcorn, cookies, etc. Try to eat more protein like meat, fish, cheese, yogurt, nuts, beans,eggs, and veggies. If you eat fruit, avoid watermelon and grapes, eat berries which are lowest in carbs. If you eat an apple or pear, eat half with peanut butter or cheese Try low carb bread (will not say it s low carb usually, will typically say Light bread or 35-45 calories per slice Madina Deacon Delightful or Nature's Own Sugar-Free are some examples of low carb/light bread), or try low carb tortilla/wraps (such as [place] Carb Balance) Try light Bahamian yogurt such as Oikos Triple Zero or Chobani Lower Sugar or Danon Bahamian Light Do not drink juice or regular pop or Gatorade. Stick to 0 calorie drinks like water, diet pop, Crystal Lite, Powerade Zero or Gatorade Zero, or [place] or Bubbly (or other brands of flavored carbonated water with 0 calories). For coffee, do not use regular sugar or flavored creamers use 0 calorie sweeteners like Stevia, Splenda, Equal, or Sweet-N-Low, use plain ajrr-cy-ffiv or a sugar- free flavored creamer, or just drink it black if you like it that way Increase Metformin to 1000mg after breakfast and 1000mg after dinner Please get blood test this week documented in this encounterLouis Stokes Cleveland [facility] Center04-21-2022 History of Present illness Narrative* Laya Chanel MD - 12/09/2021 9:02 AM EDT 41yo WF with h/o hypothyroidism, impaired fasting glucose, PCOS, HLP, referred by self for pre-diabetes/thyroid Currently on metformin 500mg BID, no N/V/D. Tried keto diet in past but was hard for her. Knows herdiet could be better though. Tore her knee, has bad arthritis, quit job, so not active and just eating. POC A1C in clinic today (fingerstick) = 5.1% Breakfast - coffee with 2 tbsp sugar and Bulgarian Vanilla creamer, sometimes a pastry (not much recently) or Egg McMuffin once in a while. Lunch - salad or sandwich with chips or potato salad, or mac and cheese Dinner - chicken or tuna sandwich with a vegetable (broccoli spinach or cauliflower rice) Snack - does a lot of sweets (candy or a cookie or pastry) often at night Drink - once or twice a week has a regular pop Takes LT4 inappropriately/inconsistently: No Energy loss: Yes, low, does not sleep well, up late Sleep disturbances: Yes Appetite change: No Wt change: lost 30 lbs with keto a few years ago but regained it all plus a few more pounds BM irregularities: No, if she drinks a lot of coffee it keeps her regular but this upsets her stomach Temp intolerance:No Skin changes: No Hair changes: falling out for a while Menses irregular: Yes, has always been irregular, takes Provera which keeps her periods regular butif she misses doses then it throws off her cycles Exposure to contrast, kelp, supplements, MVI, Biotin: No Neck pain/swelling: No Dysphagia: No Dyspnea: No Voice change: No Radiation exposure to head/neck: No FamHx of thyroid disease/DM: No All other Review of Systems reviewed and are negative. PAST MEDICAL HISTORY Diagnosis Date Depression Diabetes mellitus type II, uncontrolled 1998 Dysmetabolic syndrome Gallstones Hyperlipidemia Hypothyroid 1998 Irregular menses Obesity Polycystic disease, ovaries FAMILY HISTORY Problem Relation Age of Onset Cancer Mother DC age 65 Coronary Artery Disease Mother other (kidney failure) Mother other (SLE) Mother None Father None Brother None Brother Social History Tobacco Use Smoking status: Former Smoker Packs/day: 0.50 Years: 5.00 Pack years: 2.50 Types: Cigarettes Smokeless tobacco: Never Used Substance Use Topics Alcohol use: No Drug use: No metFORMIN (GLUCOPHAGE) 500 mg tablet, Take 1 tablet by mouth twice daily., Disp: 30 tablet, Rfl: 0 levothyroxine (SYNTHROID) 100 mcg tablet, TAKE ONE TABLET BY MOUTH ONCE DAILY, Disp: 30 tablet, Rfl: 11 ibuprofen (MOTRIN) 800 mg tablet, Take 1 tablet by mouth every 8 hours as needed for Pain., Disp: 60 tablet, Rfl: 0 triamcinolone acetonide (KENALOG) 0.1 % cream, Apply to affected area twice daily as needed when rash flares Mon to Fri, take weekends off. Do not use on face, Disp: 80 g, Rfl: 2 medroxyPROGESTERone 10 mg tablet, Take 1 tablet by mouth once daily., Disp: , Rfl: 0 Lives alone, not working, no tobacco, rare EtOH PE: BP 116/74 Pulse 80 Ht 142.2 cm (4' 8) Wt 94.7 kg (208 lb 12.8 oz) LMP 09/03/2015 BMI 46.81 kg/m Last 3 Encounter Wt Readings: Date: Wt: 12/09/2021 94.7 kg (208 lb 12.8 oz) 06/26/2018 76.7 kg (169 lb) 04/05/2017 84.8 kg (187 lb) Gen - NAD, comfortable, pleasant Eyes - No exophthalmos Neck - No visible goiter, No nodular, 20g CVS - RRR no murmurs Lung - CTAB, no rales Skin - normal texture, normal temperature MSK - 5/5 UE proximal muscle strength bilaterally Neuro - normal relaxation phase of bilateral UE reflexes, No hand tremor Component Latest Ref Rng & Units 04/11/2018 06/26/2018 Protein, Total 6.3 - 8.0 g/dL 6.9 Albumin 3.9 - 4.9 g/dL 4.6 Calcium 8.6 - 10.0 mg/dL 9.4 Bilirubin, Total 0.2 - 1.3 mg/dL 0.3 Alkaline Phosphatase 34 - 123 U/L 53 AST 13 - 35 U/L 17 Glucose 74 - 99 mg/dL 91 BUN 7 - 21 mg/dL 12 Creatinine 0.58 - 0.96 mg/dL 0.76 Sodium 136 - 144 mmol/L 138 Potassium 3.7 - 5.1 mmol/L 4.1 Chloride 97 - 105 mmol/L 101 CO2 22 - 30 mmol/L 23 Anion Gap 9 - 18 mmol/L 14 ALT 7 - 38 U/L 16 eGFR- >60 eGFR-All Other Races . >60 Hemoglobin A1C 4.3 - 5.6 % 5.1 5.0 Estimated Average Glucose mg/dL 97 TSH 0.400 - 5.500 uU/mL 0.234 (L) Free T4 0.9 - 1.7 ng/dL 1.6 Judson was seen today for new patient. Diagnoses and all orders for this visit: Impaired fasting glucose -a1c normal but will try improving insulin resistance with diet/medication improvements -recommended decrease in carb/sweet intake - switch to 0 calorie sweeteners and no-sugar creamer incoffee, less pastries/sweets as snacks (could do berries or PB or veggies dipped in ranch or guacamole, which she likes), try light bread, cut out regular pop -increase metformin to 1000mg BID to improve insulin resistance and weight -referral to endocrine weight management as noted below - metFORMIN (GLUCOPHAGE) 1,000 mg tablet; Take 1 tablet by mouth twice daily with meals. Acquired hypothyroidism -clinically euthyroid -check TSH to monitor - TSH BLD; Future Obesity, Class III, BMI 40-49.9 (morbid obesity) (HCC) -recommended improved diet and increasing metformin as above -will request consultation at the obesity and medical weight management center for their special expertise, to determine the best approach for management of this condition - ENDOCRINE MEDICAL WEIGHT MANAGEMENT; Future Other orders - HEMOGLOBIN A1C (POC) F/u 1 year The assessment and benefits/risks of the plan were discussed with the patient who expressed understanding and was agreeable to that which is noted above. This consult note is being shared with the referring provider via an electronic medical record documented in this encounterLouis Stokes Cleveland [facility] Center04-06-2022 Miscellaneous Notes* Telephone Encounter - Gillian Olivo APRN.CNP - 11/24/2021 2:51 PM EDT 30 days ONLY. I have not seen this patient since 2018. She needs to reestablish with ENDO - Dr. Chanel at [facility]. Can do no further refills Patient's request for medication is as follows Signed Prescriptions Disp Refills metFORMIN (GLUCOPHAGE) 500 mg tablet 30 tablet 0 Sig: Take 1 tablet by mouth twice daily. CHATA: No Authorizing Provider: GILLIAN OLIVO Order entered - please phone pharmacy and notify patient. Gillian Olivo APRN.CNP * Telephone Encounter - Laya Chanel MD - 11/24/2021 2:05 PM EDT Will forward to contract design agent who previously saw her. I can order her medication after she has established care with me. Thanks * Telephone Encounter - Tayo Ernst RN - 11/24/2021 1:31 PM EDT Patient phones requesting refills as follows: Pending Prescriptions Disp Refills METFORMIN 500 MG TABLET 30 tablet 0 Sig: Take 1 tablet by mouth twice daily. CHATA: No Please review and advise. Tayo Ernst RN * Telephone Encounter - Bhumika Erickson Pss - 11/24/2021 1:26 PM EDT Patient appointment is 12/09/21. Worried as will be out of Metformin before sees new provider. Wanting to see if Dr Chanel would call enough in to get her to her 12/09/21 appointment date. Takes one tablet BID. Please advise patient at [phone]. documented in this encounterLouis Stokes Cleveland [facility] Center04-06-2022 Miscellaneous Notes* Telephone Encounter - Gillian Olivo APRN.CNP - 11/24/2021 1:10 PM EDT No longer ENDO patient. Please forward to patient's PCP Patient's request for medication is as follows Patient's request for medication is as follows Refused Prescriptions Disp Refills metFORMIN (GLUCOPHAGE) 500 mg tablet [Pharmacy Med Name: metFORMIN HCl Oral Tablet 500 MG] 6 tablet0 Sig: TAKE ONE TABLET BY MOUTH TWO TIMES A DAY CHATA: No Order entered - please phone pharmacy and notify patient. Gillian Olivo APRN.CNP * Telephone Encounter - Inez Burch MA - 11/24/2021 1:04 PM EDT Images from the original note were not included. The following approved medication requests have been transmitted electronically. Pending Prescriptions Disp Refills METFORMIN 500 MG TABLET 6 tablet 0 Sig: TAKE ONE TABLET BY MOUTH TWO TIMES A DAY CHATA: Yes Inez Burch MA Metformin Refill Checklist Failed 11/24/2021 12:48 PM Protocol Details CBC within the last 12 months Serum Creatinine within the last 12 months Hemoglobin A1C within the last 6 months Visit with provider within the last 6 months PSR please contact patient to schedule office visit. (hypothyroidism) The last OV with Gillian Olivo APRN.CNP was 06/26/2018 Patients future office visit is Visit date not found documented in this encounterLouis Stokes Cleveland [facility] Center09-24-2019 History of Present illness Narrative* Pt presents for annual exam. * Last pap: 05/14/2019 * Mamm: Never had * Pt has questions regarding STIs, vaginal odor, bumps on labia. * Pt reports she is not currently sexually active and hasn't been in the last year. Was tested for STIs while with that partner and does not have concerns for STIs at this time. * Reports vaginal odor, intermittent itching/irritation, denies discharge. Reports occasional bumps on labia that aren't painful, but itchy. None noted on today's exam. * Pt denies urinary frequency, urgency, and dysuria * Pt denies breast masses, skin changes, or nipple discharge. Reports tenderness in the lateral aspect of her right breast, but thinks it may be related to taking medroxyprogesterone. * Pt takes medroxyprogesterone for PCOS and abnormal uterine bleeding. Pt reports she has trouble taking it consistently, which has affected the pattern of her periods. Encouraged use of timers, alarms, calendar to help remind pt to take medication. Denies cramping with periods. * Reports she is experiencing symptoms of depression and plans on contacting Dr. Selby to schedule avisit to discuss. Encouraged pt to do this. [id number] [address] Work Phone: [phone] History of Present illness Narrative* Pt presents for annual exam. * Last pap: 05/14/2019 * Mamm: Never had * Pt has questions regarding STIs, vaginal odor, bumps on labia. * Pt reports she is not currently sexually active and hasn't been in the last year. Was tested for STIs while with that partner and does not have concerns for STIs at this time. * Reports vaginal odor, intermittent itching/irritation, denies discharge. Reports occasional bumps on labia that aren't painful, but itchy. None noted on today's exam. * Pt denies urinary frequency, urgency, and dysuria * Pt denies breast masses, skin changes, or nipple discharge. Reports tenderness in the lateral aspect of her right breast, but thinks it may be related to taking medroxyprogesterone. * Pt takes medroxyprogesterone for PCOS and abnormal uterine bleeding. Pt reports she has trouble taking it consistently, which has affected the pattern of her periods. Encouraged use of timers, alarms, calendar to help remind pt to take medication. Denies cramping with periods. * Reports she is experiencing symptoms of depression and plans on contacting Dr. Selby to schedule avisit to discuss. Encouraged pt to do this. [facility] [address] Work Phone: Discharge summary Author Tha Causey [facility] Note Date/Time December 12, 2024 1:0 8pm [facility] Medical Records Department [address] [place] [address] Emergency Department Summary 12/12/24 MR#: [id number] Acct: [id number] Name: JUDSON DE LA CRUZ Rep #:[id number] : 1980 44 From: Tha Causey DO PCP: Care Physician,No Primary Status :REG ER Location: ED HPI History of Present Illness Chief Complaint: Back Narrative Narrative: Patient is a 44-year-old female with past medical history of scoliosis, hypercholesteremia, hypothyroidism, diabetes, migraines, chronic back pain who presented to the emerged part with a chief complaint of back pain. Patient states that she is in pain management and went to physical therapy few days ago and notes that during her exercises her back started hurting her more. She states that she feels like the exercises exacerbate her pain. States that she is on some medications for her back pain but cannot specifically tell me what she is taking for this. Patient denies any new injuries or trauma. Patient denies any history of IV drug use, smoking or alcohol use. Patient states that she has been urinating more frequently with some pain with urination and notes that she is having normal bowel movements. Patient states that her back pain monet the right side and radiates down the back of her leg into her foot. [facility] Medical History Arthritis Scoliosis Hypercholesterolemia Hypothyroidism Diabetes Migraine Home Medications ?Medication ?Instructions ?Recorded ?Last Taken ?Type levothyroxine 100 mcg tablet 100 mcg PO QDAY 07/01/24 Unknown History metformin 500 mg tablet 500 mg PO QDAY 07/01/24 Unkn own History atorvastatin 40 mg tablet 40 mg PO DAILY 07/12/24 Unkn own History omega 1-ukd-xzs-fish oil 100 2 cap PO DAILY 07/12/24 U nknown History mg-160 mg-1,000 mg capsule (Fish Oil) cephalexin 500 mg capsule 500 mg PO BID 5 days #10 cap s 12/12/24 Unknown Rx cyclobenzaprine 5 mg tablet 5 mg PO TID PRN muscle spa sm #9 12/12/24 Unknown Rx tabs ondansetron 4 mg disintegrating 4 mg PO Q6H PRN nausea and 12/12/24 Unknown Rx tablet vomiting #20 tabs oxycodone-acetaminophen 5 mg-325 1 tab PO Q6H PRN pain 2 days #8 12/12/24 Unknown Rx mg tablet (Endocet) tabs prednisone 5 mg tablets in a dose See Rx Instructions PO .COMPLEX 12/12/24 Unknown Rx pack #21 tabs Allergy/AdvReac Type Severity Reaction Status Date / Time acetaminophen (From Vicodin) Allergy Mild Nausea Verified 12/12/24 10:06 hydrocodone (From Vicodin) Allergy Mild Nausea Verified 12/12/24 10:06 Sulfa (Sulfonamide Allergy Mild Rash Verified 12/12/24 10:06 Antibiotics) Family History Mother Scoliosis Other Cancer Heart disease Hypertension Surgical History Hx of cholecystectomy Social History housing: homeless Smoking Status: Never smoker alcohol intake: never what type of physical activity do you participate in: walking do you feel safe at home: No (sometimes) ROS ROS ED ROS Narrative Constitutional: Denies fevers, chills, headaches Cardiovascular: Denies chest pain Respiratory: Denies shortness of breath Abdomen: Denies abdominal pain nausea, vomiting, diarrhea : Complains of urinary symptoms as noted above denies any hematuria Neurological: Denies numbness, weakness, tingling Musculoskeletal: Complains of back pain as noted above Skin: Denies any rashes or lesions EXAM Physical Exam Narrative Exam Narrative: General: Patient was lying in bed rest comfortably did not appear to be in acutedistress Head: Atraumatic, normocephalic Eyes: PERRL bilaterally, EOMI bilaterally, no conjunctival injection noted Neck: Soft, supple, trachea midline Cardiovascular: Regular rate and rhythm Abdomen: Soft, nondistended Extremities: +4/5 strength noted in the bilateral upper and lower extremities, no pedal edema on exam Neurological: Patient following commands knew that she was at [facility] year is 2024 no saddle anesthesia noted Skin: Warm, dry, intact no rashes lesions noted Const Vital Signs: 12/12/24 10:04 Temperature 97.9 F Temperature Source Oral Pulse Rate 76 Respiratory Rate 18 Blood Pressure 110/78 Blood Pressure Mean 88 Pulse Ox 99 Oxygen Delivery Method Room Air MDM MDM MDM Narrative Medical decision making narrative: Patient is a 44-year-old female who presented to the emergency department chief complaint of flare of her chronic back pain. On the differential diagnose includes but not limited to herniated disc, musculoskeletal strain, flare of herchronic back pain, UTI, pyelonephritis. Once workup is obtained and reviewed she will be reevaluated. Patient be given Toradol, Valium, prednisone. Reevaluation patient she is still having pain therefore she was given [place] and Zofran. Patient's urinalysis reviewed and showed 100 leukocyte esterase 5-10 white bloodcells with no bacteria seen however she is having urinary frequency with symptoms we will treat her with Keflex and this was sent for culture for her to follow-up on as well. Patient ambulated here in the emergency department to the bathroom by herself several times. On reevaluation the patient she is feeling better now and would like to go home. She was given prescription for cyclobenzaprine, Endocet, Zofran and prednisone. She is advised to rotate Tylenol and I Profen [id number] as well and use the narcotic for severe pain. She is advised not operating thing in the influence of the narcotic. She is advised to follow-up with her primary care physician in the outpatient setting as well and return with worsening symptoms or concerns. She is agreeable to plan all course concerns answered she was discharged home in stable condition. Lab Data Labs: Laboratory Results - last 24 hr 12/12/24 11:11 Urine Color Yellow Urine Clarity Clear Urine pH 8.0 Ur Specific Viola 1.010 Urine Protein Negative Urine Glucose (UA) Normal Urine Ketones Negative Urine Occult Blood Negative Urine Nitrite Negative Urine Bilirubin Negative Urine Urobilinogen Normal Ur Leukocyte Esterase 100 H Urine RBC 0 SEEN Urine WBC 5-10 SEEN Ur Squamous Epith Cells 5-10 SEEN Urine Bacteria 0 SEEN Urine Mucus 0 SEEN Discharge Plan Triage Chief Complaint: Back ED Provider: Tha Causey Dx/Rx/DC Orders Clinical Impression: Back pain Prescriptions: New cyclobenzaprine 5 mg tablet 5 mg PO TID PRN (Reason: muscle spasm) Qty: 9 0RF ondansetron 4 mg tablet,disintegrating 4 mg PO Q6H PRN (Reason: nausea and vomiting) Qty: 20 0RF oxycodone-acetaminophen [Endocet] 5-325 mg tablet 1 tab PO Q6H PRN (Reason: pain) 2 Days Qty: 8 0RF prednisone 5 mg tablets,dose pack See Rx Instructions .ROUTE .COMPLEX Qty: 21 0RF Rx Instructions: orally per package directions cephalexin 500 mg capsule 500 mg PO BID 5 Days Qty: 10 0RF No Action metformin 500 mg tablet 500 mg PO QDAY levothyroxine 100 mcg tablet 100 mcg PO QDAY atorvastatin 40 mg tablet 40 mg PO DAILY Fish Oil 100-160-1,000 mg capsule 2 cap PO DAILY Primary Care Provider: Care Physician,No Primary Referrals: Care Physician,No Primary [Primary Care Provider] - Liz Gates Pradeep, PROCESSING ARCHIVIST-C [[facility]] - Activity Restrictions/Additional Instructions: Rotate Tylenol and ibuprofen [id number] when you do this he can take something every 3 hours max dose Tylenol 4000 mg max dose of ibuprofen 3200 mg in 24 hours. Use the Percocet for severe pain do not operate anything under theinfluence this medication as this will make you sleepy and drowsy use Zofran with this as this will make you nauseous as well. Return with worsening symptoms or concerns. Take antibiotics as prescribed and follow-up and urine culture with your doctor. Print Language: [place] Disposition Disposition: Home, Self Care What to do if you have Problems For any increased pain, shortness of breath, bleeding, nausea or vomiting, chestpain, or any unexpected problems, contact your Primary Care Provider. Call [facility] ([phone]) or report to the closest Emergency Room. Call 911 if necessary. 12/12/24 1308 <Electronically signed by Tha Causey DO> Cosigner Signature (if applicable): CC: No Primary Care Physician ~ Signed [facility] Work Phone: Evaluation + Plan note No data available for this section [facility] Evaluation note* Diagnosis Acquired hypothyroidism Unspecified hypothyroidism Prediabetes Other abnormal glucose [facility] [place] [facility] Diagnosis Acquired hypothyroidism Unspecified hypothyroidism Prediabetes Other abnormal glucose [facility] Diagnosis Impaired fasting glucose- Primary Acquired hypothyroidism Unspecified hypothyroidism Obesity, Class III, BMI 40-49.9 (morbid obesity) (HCC) Morbid [facility] Diagnosis Impaired fasting glucose Obesity, Class III, BMI 40-49.9 (morbid obesity) (HCC) Morbid obesity [facility] Diagnosis Impaired fasting glucose- Primary Acquired hypothyroidism Unspecified hypothyroidism Obesity, Class III, BMI 40-49.9 (morbid obesity) (HCC) Morbid obesity [facility] Diagnosis Acquired hypothyroidism Unspecified hypothyroidism Prediabetes Other abnormal glucose [facility] Diagnosis Infrapatellar bursitis of right knee- Primary [facility]* Diagnosis Acquired hypothyroidism Unspecified hypothyroidism Prediabetes Other abnormal glucose [facility] Diagnosis Pain Generalized pain [facility]* Diagnosis Pain Generalized pain [facility]* Diagnosis DDD (degenerative disc disease), lumbar- Primary Degeneration of lumbar or lumbosacral intervertebral disc Lumbar radiculopathy Thoracic or lumbosacral neuritis or radiculitis, unspecified Cervical radiculopathy Brachial neuritis or radiculitis nos [facility] Diagnosis Pain in joint, multiple sites- Primary Muscle weakness Muscle weakness (generalized) [facility] Diagnosis Pain in joint, multiple sites- Primary Muscle weakness Muscle weakness (generalized) [facility]* Diagnosis Encounter for gynecological examination (general) (routine) without abnormal findings- Primary Encounter for screening mammogram for malignant neoplasm of breast Other screening mammogram Screening for cervical cancer Screening for malignant neoplasm of the cervix Screen for STD (sexually transmitted disease) Screening examination for venereal disease Secondary amenorrhea Absence of menstruation PCOS (polycystic ovarian syndrome) Polycystic ovaries Acute vaginitis Vaginitis and vulvovaginitis, unspecified [facility] [place] [facility]* Diagnosis Abnormal FSH level- Primary Unspecified endocrine disorder [facility] Diagnosis Bronchitis- Primary Bronchitis, not specified as acute or chronic Sorethroat Acute pharyngitis documented in this [facility] [place] [facility]* Diagnosis Acute otitis media, right- Primary Unspecified otitis media URI, acute Acute upper respiratory infections of unspecified site [facility]* Diagnosis Pain of left lower leg- Primary Pain in limb Pain of left lower leg Pain in limb [facility]* Diagnosis Pain of left lower leg Pain in limb [facility]* Diagnosis Chronic pain of right knee- Primary Chronic right-sided low back pain with right-sided sciatica [facility] [place] [facility]* Diagnosis Lower resp. tract infection- Primary Other diseases of respiratory system, not elsewhere classified Acute cough [facility] [place] [facility]* Diagnosis Laceration of fifth toe- Primary [facility]* Diagnosis Sore throat- Primary Acute pharyngitis Upper respiratory tract infection, unspecified type [facility] [place] [facility]* Diagnosis Encounter for screening mammogram for breast cancer documented [facility]* Diagnosis Vitamin D deficiency- Primary Unspecified vitamin D deficiency [facility]* Diagnosis Mild intermittent asthma, uncomplicated Unspecified asthma documented in this [facility] [place] [facility]* Diagnosis Upper respiratory tract infection, unspecified type- Primary Sore throat Acute pharyngitis Encounter for screening mammogram for breast cancer 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 Type 2 diabetes mellitus without complication, without long-term current use of insulin (HCC) Abnormal uterine bleeding Unspecified disorder of menstruation and other abnormal bleeding from female genital tract Mixed hyperlipidemia PCOD (polycystic ovarian disease) Polycystic ovaries Vitamin D deficiency Unspecified vitamin D deficiency Vitamin B12 deficiency Other B-complex deficiencies Degeneration of intervertebral disc of lumbar region with discogenic back pain and lower extremity pain Primary osteoarthritis of both knees Primary localized osteoarthrosis, lower leg Hand dermatitis Contact dermatitis and other eczema, due to unspecified cause Mild intermittent asthma, uncomplicated Unspecified asthma Decreased mobility Other symptoms involving nervous and musculoskeletal systems Encounter for screening mammogram for breast cancer Mild intermittent asthma, uncomplicated Unspecified asthma Mild intermittent asthma, uncomplicated Unspecified asthma Mild intermittent asthma, uncomplicated Unspecified asthma [facility]* Diagnosis Environmental allergies- Primary Other allergy, other than to medicinal agents [facility] Diagnosis Degeneration of intervertebral disc of lumbar region with discogenic back pain and lower extremity pain Primary osteoarthritis of both knees Primary localized osteoarthrosis, lower leg Decreased mobility Other symptoms involving nervous and musculoskeletal systems [facility]* Diagnosis Bilateral primary osteoarthritis of knee Chronic pain of both knees [facility] Diagnosis Degeneration of intervertebral disc of lumbar region with discogenic back pain and lower extremity pain- Primary [facility]* Diagnosis Primary osteoarthritis of both knees- Primary Primary localized osteoarthrosis, lower leg Osteophyte of both knees documented in this encounter [facility] [place] noteNo assessment information availableW[facility] Work Phone: Evaluation note* Diagnosis Type 2 diabetes mellitus without complication, without long-term current use of insulin (HCC)- Primary Acquired hypothyroidism Unspecified hypothyroidism Bilateral primary osteoarthritis of knee Degeneration of intervertebral disc of lumbar region with discogenic back pain and lower extremity pain Chronic pain of both knees Chronic pain syndrome Spondylolisthesis, lumbar region Bilateral primary osteoarthritis of knee Chronic pain of both knees documented [facility] Diagnosis Degeneration of intervertebral disc of lumbar region with discogenic back pain and lower extremity pain- Primary documented [facility]* Diagnosis Degeneration of intervertebral disc of lumbar region with discogenic back pain and lower extremity pain- Primary Primary osteoarthritis of both knees Primary localized osteoarthrosis, lower leg Decreased mobility Other symptoms involving nervous and musculoskeletal systems documented in this encounter [facility]* Diagnosis Primary osteoarthritis of both knees Primary localized osteoarthrosis, lower leg Type 2 diabetes mellitus without complication, without long-term current use of insulin ([facility]) Vitamin B12 deficiency Other B-complex deficiencies documented in this [facility]* Diagnosis Degeneration of intervertebral disc of lumbar region with discogenic back pain and lower extremity pain- Primary documented [facility] this [facility] Narrative* Pt presents for annual exam * Hx PCOS, on medroxyrogesterone 10mg for 10 days each month for endometrial protection * Reports stripper latex periods than previously * Condoms for contraception, no current partner * Declines STI testing * Has not initiated screening mammograms, not sure how they will fit into her schedule [facility] [address] DO Work Phone: Hospital Discharge instructions Additional Instructions Rotate Tylenol and ibuprofen [id number] when you do this he can take something every 3 hours max dose Tylenol 4000 mg max dose of ibuprofen 3200 mg in 24 hours. Use the Percocet for severe pain do not operate anything under the influence this medication as this will make you sleepy and drowsy use Zofran with this as this will make you nauseous as well. Return with worsening symptoms or concerns. Take antibiotics as prescribed and follow-up and urine culture with your doctor.[facility] Work Phone: Reason for referral (narrative)* Diagnostic Procedure Only (Routine) - Closed Specialty Diagnoses / Procedures Referred By Hafsa martines Referred To Contact XR IMAGING Diagnoses Pain Procedures XR KNEE GENERAL 4V AP BOTH/PA BOTH/LAT/MERC LT KNEE AP-WGT/LAT/MERCHANT Ryan Betancourt DO [address] [facility] [place] [address] [place] [address] Referral ID Status Reason Start Date Expiration Date V isits Requested Visits Authorized [id number] Closed Auto-Generate d Referral 06/23/2021 07/23/2022 1 1 [facility] for referral (narrative)* Diagnostic Procedure Only (Routine) - Closed Specialty Diagnoses / Procedures Referred By Contac t Referred To Contact XR IMAGING Diagnoses Pain Procedures XR KNEE GENERAL 4V AP BOTH/PA BOTH/LAT/MERC RIGHT RADIOLOGIC EXAM KNEE COMPLETE 4/MORE VIEWS Leoncio Meadows PA-C [address] [place] [address] [place] [address] Referral ID Status Reason Start Date Expiration Date V isits Requested Visits Authorized [id number] Closed Auto-Generate d Referral 05/24/2022 06/23/2023 1 1 [facility] for referral (narrative)* Diagnostic Procedure Only (Routine) - Authorized Specialty Diagnoses / Procedures Referred By Contac t Referred To Contact US IMAGING Diagnoses Secondary amenorrhea Procedures US FEMALE PELVIS TRANSVAG US TRANSVAGINAL Regan Herrera, BULLET CASTING OPERATOR.COMMUNITY LIAISON [address] [place] [address] [place] [address] Referral ID Status Reason Start Date Expiration Date Visits Requested Visits Authorized [id number] Authorized Auto-Generat ed Referral 03/14/2024 04/13/2025 1 1 * Diagnostic Procedure Only (Routine) - Authorized Specialty Diagnoses / Procedures Referred By Contac t Referred To Contact BR IMAGING Diagnoses Encounter for screening mammogram for malignant neoplasm of breast Procedures LINSEY SCREENING SCREENING MAMMOGRAPHY BI 2-VIEW BREAST INC CAD Regan Herrera, BULLET CASTING OPERATOR.COMMUNITY LIAISON [address] [facility] [address] [place] [address] Br Imaging [address] [place] [address] Referral ID Status Reason Start Date Expiration Date Visits Requested Visits Authorized [id number] Authorized Auto-Generat ed Referral 03/14/2024 04/13/2025 1 1 [facility] for referral (narrative)* Diagnostic Procedure Only (Urgent) - Closed Specialty Diagnoses / Procedures Referred By Contac t Referred To Contact XR IMAGING Diagnoses Pain of left lower leg Procedures XR TIBIA FIBULA 2V AP/LAT LEFT RADIOLOGIC EXAMINATION TIBIA & FIBULA 2 VIEWS Julio César Troncoso APRN.COMMUNITY LIAISON [address] [place] [address] [place] [address] Referral ID Status Reason Start Date Expiration Date V isits Requested Visits Authorized [id number] Closed Auto-Generate d Referral 05/15/2024 06/14/2025 1 1 [facility] for referral (narrative)* Diagnostic Procedure Only (Urgent) - Closed Specialty Diagnoses / Procedures Referred By Contac t Referred To Contact XR IMAGING Diagnoses Pain of left lower leg Procedures XR TIBIA FIBULA 2V AP/LAT LEFT RADIOLOGIC EXAMINATION TIBIA & FIBULA 2 VIEWS Julio César Troncoso APRN.COMMUNITY LIAISON [address] [place] [address] [place] [address] Referral ID Status Reason Start Date Expiration Date V isits Requested Visits Authorized [id number] Closed Auto-Generate d Referral 05/15/2024 06/14/2025 1 1 [facility] for referral (narrative)No reason for referral information availableWUC Medical Center Work Phone: [facility] Narrative* Diagnostic Procedure Only (Routine) - Closed Specialty Diagnoses / Procedures Referred By Contac t Referred To Contact XR IMAGING Diagnoses Pain Procedures XR KNEE GENERAL 4V AP BOTH/PA BOTH/LAT/MERC LT KNEE AP-WGT/LAT/MERCHANT Ryan Betancourt, DO [address] [place] [address] [place] [address] Referral ID Status Reason Start Date Expiration Date V isits Requested Visits Authorized [id number] Closed Auto-Generate d Referral 06/23/2021 07/23/2022 1 1 [facility] for visit Narrative* Diagnostic Procedure Only (Routine) - Closed Specialty Diagnoses / Procedures Referred By Contac t Referred To Contact XR IMAGING Diagnoses Pain Procedures XR KNEE GENERAL 4V AP BOTH/PA BOTH/LAT/MERC RIGHT RADIOLOGIC EXAM KNEE COMPLETE 4/MORE VIEWS Leoncio Meadows PA-C [address] [place] [address] [place] [address] Referral ID Status Reason Start Date Expiration Date V isits Requested Visits Authorized [id number] Closed Auto-Generate d Referral 05/24/2022 06/23/2023 1 1 [facility] for visit Narrative* Diagnostic Procedure Only (Urgent) - Closed Specialty Diagnoses / Procedures Referred By Contac t Referred To Contact XR IMAGING Diagnoses Pain of left lower leg Procedures XR TIBIA FIBULA 2V AP/LAT LEFT RADIOLOGIC EXAMINATION TIBIA & FIBULA 2 VIEWS Julio César Troncoso, BULLET CASTING OPERATOR.COMMUNITY LIAISON [address] [place] [address] [place] [address] Referral ID Status Reason Start Date Expiration Date V isits Requested Visits Authorized [id number] Closed Auto-Generate d Referral 05/15/2024 06/14/2025 1 1 [facility] for visit Narrative* Diagnostic Procedure Only (Routine) - Closed Specialty Diagnoses / Procedures Referred By Contac t Referred To Contact BR IMAGING Diagnoses Encounter for screening mammogram for breast cancer Procedures LINSEY SCREENING W SAVANA SCREENING DIGITAL BREAST TOMOSYNTHESIS BI SCREENING MAMMOGRAPHY BI 2-VIEW BREAST INC CAD Comfort Clement, BULLET CASTING OPERATOR.COMMUNITY LIAISON [address] [place] [address] Phone: tel: fax: BR IMAGING [address] [place] [address] Referral ID Status Reason Start Date Expiration Date V isits Requested Visits Authorized [id number] Closed Auto-Generate d Referral 10/04/2024 08/20/2025 1 1 [facility] for visit Narrative* Diagnostic Procedure Only (Routine) - Closed Specialty Diagnoses / Procedures Referred By Contac t Referred To Contact XR IMAGING Diagnoses Bilateral primary osteoarthritis of knee Chronic pain of both knees Procedures XR KNEE SURVEY ARTHRITIS 1V AP BILATERAL RADIOLOGIC EXAM BOTH KNEES STANDING ANTEROPOST Comfort Clement, LESTER.COMMUNITY LIAISON [address] [facility] [place] [address] Phone: tel: fax: [place] [address] Referral ID Status Reason Start Date Expiration Date V isits Requested Visits Authorized [id number] Closed Auto-Generate d Referral 12/03/2024 01/02/2026 1 1 [facility] Summary Purpose Family History Mother Name Dates Details Family history of Status:Active Family history of lung cance r(V16.1, Z80.1) Status:Active Mother Name Dates Details Family history of Status:Active Family history of lung cance r(V16.1, Z80.1) Status:Active Mother Name Dates Details Family history of Status:Active Family history of lung cance r(V16.1, Z80.1) Status:Active Unknown Family Member Name Dates Details : Mother Status:Active Family history of lung cance r: Mother(V16.1, Z80.1) Status:Active Unknown Family Member Name Dates Details : Mother Status:Active Family history of lung cance r: Mother(V16.1, Z80.1) Status:Active Unknown Family Member Name Dates Details : Mother Status:Active Family history of lung cance r: Mother(V16.1, Z80.1) Status:Active Unknown Family Member Name Dates Details : Mother Status:Active Family history of lung cance r: Mother(V16.1, Z80.1) Status:Active Unknown Family Member Name Dates Details : Mother Status:Active Family history of lung cance r: Mother(V16.1, Z80.1) Status:Active Unknown Family Member Name Dates Details : Mother Status:Active Family history of lung cance r: Mother(V16.1, Z80.1) Status:Active Unknown Family Member Name Dates Details : Mother Status:Active Family history of lung cance r: Mother(V16.1, Z80.1) Status:Active Unknown Family Member Name Dates Details : Mother Status:Active Family history of lung cance r: Mother(V16.1, Z80.1) Status:Active Unknown Family Member Name Dates Details : Mother Status:Active Family history of lung cance r: Mother(V16.1, Z80.1) Status:Active Relationship Condition Age at Onset Recorded Date/T alexey Not Specified Cardiac disease Unknown Malignant neoplasm Unknown Hypertension Unknown mother Scoliosis Unknown Advance Directives Advance Directive Response Recorded Date/ Time Do you have a Healthcare Power of Business Insight And Analytics Manager? No December 12, 2024 10:07am Advance Directive Response Recorded Date/ Time Do you have a Healthcare Power of Business Insight And Analytics Manager? No December 12, 2024 10:07am Do you have a Healthcare Power of Business Insight And Analytics Manager? No April 04, 2025 2:27pm Chief Complaint * JESUS MANUEL (Breast/ pelvic exam) * * P:0 * LMP: 04/21/2021 * Menstrual cycle: irregular * B/C: none * Last pap: 05/14/2019 normal hpv- * Last LINSEY: No * Exercise: yes * Sexually active: no * pain/bleeding with intercourse: none * bladder/bowel incontinence issues: Constipation. * Diet: regular * Patient states that she is having pain in her back and hip. Not sexually active at this time. Not currently taking control. * Piano Mechanic: Corazon Braden MA * JESUS MANUEL (Breast/ pelvic exam) * * P:0 * LMP: 04/21/2021 * Menstrual cycle: irregular * B/C: none * Last pap: 05/14/2019 normal hpv- * Last LINSEY: No * Exercise: yes * Sexually active: no * pain/bleeding with intercourse: none * bladder/bowel incontinence issues: Constipation. * Diet: regular * Patient states that she is having pain in her back and hip. Not sexually active at this time. Not currently taking control. * Piano Mechanic: Corazon Braden MA * Patient here for annual exam. * LMP: unknown * Last pap: 05/14/2019 Normal HPV- * control: None * Wendy Lee MA Reason for Referral Specialty Diagnoses / Procedures Referred By Hafsa t Referred To Contact Diagnoses Obesity, Class III, BMI 40-49.9 (morbid obesity) ([facility]) Procedures ENDOCRINE MEDICAL WEIGHT MANAGEMENT OFFICE/OUTPATIENT [facility] 60-74 MINUTES Laya Chanel MD [address] [place] [address] [place] [address] Referral ID Status Reason Start Date Expiration Date Visits Requested Visits Authorized [id number] Authorized PCP Requested Referral 12/09/2021 12/09/2022 1 1 Specialty Diagnoses / Procedures Referred By Contac t Referred To Contact Diagnoses Impaired fasting glucose Acquired hypothyroidism Obesity, Class III, BMI 40-49.9 (morbid obesity) (HCC) Procedures ENDOCRINOLOGY DIETITIAN VISIT OFFICE/OUTPATIENT [facility] 60-74 MINUTES Farzana De Leon V, MD [address] [place] [address] Referral ID Status Reason Start Date Expiration Date Visits Requested Visits Authorized [id number] Authorized PCP Requested Referral 12/29/2021 03/29/2022 1 1 Specialty Diagnoses / Procedures Referred By Contac t Referred To Contact Diagnoses Impaired fasting glucose Acquired hypothyroidism Obesity, Class III, BMI 40-49.9 (morbid obesity) ([facility]) Procedures CONSULT WEIGHT MANAGEMENT FITNESS PROGRAM OFFICE/OUTPATIENT [facility] 60-74 MINUTES Farzana De Leon V, MD [address] [place] [address] Referral ID Status Reason Start Date Expiration Date Visits Requested Visits Authorized [id number] Pending Review PCP Requested Referral 12/29/2021 12/29/2022 1 1 Specialty Diagnoses / Procedures Referred By Contac t Referred To Contact [facility] Diagnoses DDD (degenerative disc disease), lumbar Lumbar radiculopathy Cervical radiculopathy Procedures CONSULT TO PHYSICAL THERAPY PHYSICAL THERAPY EVALUATION HIGH COMPLEX 45 MINS Johnathan Pringle MD [address] [facility] [place] [address] [facility] [place] [address] [place] [address] Referral ID Status Reason Start Date Expiration Date Visits Requested Visits Authorized [id number] Pending Review Auto-Generat ed Referral 11/03/2023 11/02/2024 1 1 Chief Complaint and Reason for Visit Chief Complaint Admit Date BACK PAIN December 12, 2024 10: 03am Chief Complaint Admit Date BACK PAIN December 12, 2024 10: 03am abdominal wound January 31, 2025 12:0 9pm Chief Complaint Admit Date BACK PAIN December 12, 2024 10: 03am abdominal wound January 31, 2025 12:0 9pm BL KNEES February 19, 2025 12:45 pm Room 2 February 19, 2025 1:42p m Reason for Visit Admit Date Cellulitis of right abdominal wall January 31, 2025 12:09pm Chief Complaint Admit Date BACK PAIN December 12, 2024 10: 03am abdominal wound January 31, 2025 12:0 9pm BL KNEES February 19, 2025 12:45 pm Room 2 February 19, 2025 1:42p m weakness April 04, 2025 1: 17pm Reason for Visit Admit Date Cellulitis of right abdominal wall January 31, 2025 12:09pm Bilateral primary osteoarthritis of knee February 19, 2025 12:45pm Morbid obesity due to excess calories 2024 12:45pm Additional Source Comments INFORMATION SOURCE (unrecogn ized section and content) DATE CREATED AUTHOR 04/13/2018 [facility] [place] DATE CREATED AUTHOR AUTHOR'S ORGANIZ ATION 08/28/2018 [facility] [place] [place] DATE CREATED AUTHOR AUTHOR'S ORGANIZ ATION 08/27/2021 [facility] DATE CREATED AUTHOR AUTHOR'S ORGANIZ ATION 12/22/2021 [facility] DATE CREATED AUTHOR AUTHOR'S ORGANIZ ATION 12/07/2022 [facility] DATE CREATED AUTHOR AUTHOR'S ORGANIZ ATION 01/31/2023 [facility] DATE CREATED AUTHOR AUTHOR'S ORGANIZ ATION 06/18/2023 [facility] DATE CREATED AUTHOR AUTHOR'S ORGANIZ ATION 07/08/2023 [facility] ([place]) DATE CREATED AUTHOR AUTHOR'S ORGANIZ ATION 07/10/2023 [facility] DATE CREATED AUTHOR AUTHOR'S ORGANIZ ATION 02/20/2024 [facility] DATE CREATED AUTHOR AUTHOR'S ORGANIZ ATION 03/28/2024 [facility] DATE CREATED AUTHOR AUTHOR'S ORGANIZ ATION 11/14/2024 [facility] DATE CREATED AUTHOR AUTHOR'S ORGANIZ ATION 03/01/2025 [facility] DATE CREATED AUTHOR AUTHOR'S ORGANIZ ATION 03/01/2025 [facility] DATE CREATED AUTHOR AUTHOR'S LETI AM 03/08/2025 [facility] <item><item> Privacy Markings (unrecogniz ed section and content) Section Author: Ghada Jones PROHIBITION ON REDISCLOSURE OF CONFIDENTIAL INFORMATION This notice accompanies a disclosure of information concerning a client made to you with the consent of such client. Section Author: Ghada Jones PROHIBITION ON REDISCLOSURE OF CONFIDENTIAL INFORMATION This notice accompanies a disclosure of information concerning a client made to you with the consent of such client. Source Comments (unrecognize d section and content) In the event this informatio n is protected by the Federal Confidentiality of Alcohol and Drug Abuse Patient Records regulations: The Federal rules restrict any use of the information to criminally investigate or prosecute any alcohol or drug abuse patient.[facility] CenterIn the event this information is protected by the Federal Confidentiality of Alcohol and Drug Abuse Patient Records regulations: The Federal rules restrict any use of the information to criminally investigate or prosecute any alcohol or drug abuse patient.[facility] CenterIn the event this information is protected by the Federal Confidentiality of Alcohol and Drug Abuse Patient Records regulations: The Federal rules restrict any use of the information to criminally investigate or prosecute any alcohol or drug abuse patient.[facility] CenterIn the event this information is protected by the Federal Confidentiality of Alcohol and Drug Abuse Patient Records regulations: The Federal rules restrict any use of the information to criminally investigate or prosecute any alcohol or drug abuse patient.[facility] CenterIn the event this information is protected by the Federal Confidentiality of Alcohol and Drug Abuse Patient Records regulations: The Federal rules restrict any use of the information to criminally investigate or prosecute any alcohol or drug abuse patient.[facility] CenterIn the event this information is protected by the Federal Confidentiality of Alcohol and Drug Abuse Patient Records regulations: The Federal rules restrict any use of the information to criminally investigate or prosecute any alcohol or drug abuse patient.[facility] CenterIn the event this information is protected by the Federal Confidentiality of Alcohol and Drug Abuse Patient Records regulations: The Federal rules restrict any use of the information to criminally investigate or prosecute any alcohol or drug abuse patient.[facility] CenterIn the event this information is protected by the Federal Confidentiality of Alcohol and Drug Abuse Patient Records regulations: The Federal rules restrict any use of the information to criminally investigate or prosecute any alcohol or drug abuse patient.[facility] CenterIn the event this information is protected by the Federal Confidentiality of Alcohol and Drug Abuse Patient Records regulations: The Federal rules restrict any use of the information to criminally investigate or prosecute any alcohol or drug abuse patient.[facility] CenterIn the event this information is protected by the Federal Confidentiality of Alcohol and Drug Abuse Patient Records regulations: The Federal rules restrict any use of the information to criminally investigate or prosecute any alcohol or drug abuse patient.[facility] CenterIn the event this information is protected by the Federal Confidentiality of Alcohol and Drug Abuse Patient Records regulations: The Federal rules restrict any use of the information to criminally investigate or prosecute any alcohol or drug abuse patient.[facility] CenterIn the event this information is protected by the Federal Confidentiality of Alcohol and Drug Abuse Patient Records regulations: The Federal rules restrict any use of the information to criminally investigate or prosecute any alcohol or drug abuse patient.[facility] CenterIn the event this information is protected by the Federal Confidentiality of Alcohol and Drug Abuse Patient Records regulations: The Federal rules restrict any use of the information to criminally investigate or prosecute any alcohol or drug abuse patient.[facility] the event this information is protected by the Federal Confidentiality of Alcohol and Drug Abuse Patient Records regulations: The Federal rules restrict any use of the information to criminally investigate or prosecute any alcohol or drug abuse patient.[facility] CenterIn the event this information is protected by the Federal Confidentiality of Alcohol and Drug Abuse Patient Records regulations: The Federal rules restrict any use of the information to criminally investigate or prosecute any alcohol or drug abuse patient.[facility] CenterIn the event this information is protected by the Federal Confidentiality of Alcohol and Drug Abuse Patient Records regulations: The Federal rules restrict any use of the information to criminally investigate or prosecute any alcohol or drug abuse patient.[facility] CenterIn the event this information is protected by the Federal Confidentiality of Alcohol and Drug Abuse Patient Records regulations: The Federal rules restrict any use of the information to criminally investigate or prosecute any alcohol or drug abuse patient.[facility] CenterIn the event this information is protected by the Federal Confidentiality of Alcohol and Drug Abuse Patient Records regulations: The Federal rules restrict any use of the information to criminally investigate or prosecute any alcohol or drug abuse patient.[facility] CenterIn the event this information is protected by the Federal Confidentiality of Alcohol and Drug Abuse Patient Records regulations: The Federal rules restrict any use of the information to criminally investigate or prosecute any alcohol or drug abuse patient.[facility] CenterIn the event this information is protected by the Federal Confidentiality of Alcohol and Drug Abuse Patient Records regulations: The Federal rules restrict any use of the information to criminally investigate or prosecute any alcohol or drug abuse patient.[facility] CenterIn the event this information is protected by the Federal Confidentiality of Alcohol and Drug Abuse Patient Records regulations: The Federal rules restrict any use of the information to criminally investigate or prosecute any alcohol or drug abuse patient.[facility] CenterIn the event this information is protected by the Federal Confidentiality of Alcohol and Drug Abuse Patient Records regulations: The Federal rules restrict any use of the information to criminally investigate or prosecute any alcohol or drug abuse patient.[facility] CenterIn the event this information is protected by the Federal Confidentiality of Alcohol and Drug Abuse Patient Records regulations: The Federal rules restrict any use of the information to criminally investigate or prosecute any alcohol or drug abuse patient.[facility] CenterIn the event this information is protected by the Federal Confidentiality of Alcohol and Drug Abuse Patient Records regulations: The Federal rules restrict any use of the information to criminally investigate or prosecute any alcohol or drug abuse patient.[facility] CenterIn the event this information is protected by the Federal Confidentiality of Alcohol and Drug Abuse Patient Records regulations: The Federal rules restrict any use of the information to criminally investigate or prosecute any alcohol or drug abuse patient.[facility] CenterIn the event this information is protected by the Federal Confidentiality of Alcohol and Drug Abuse Patient Records regulations: The Federal rules restrict any use of the information to criminally investigate or prosecute any alcohol or drug abuse patient.[facility] CenterIn the event this information is protected by the Federal Confidentiality of Alcohol and Drug Abuse Patient Records regulations: The Federal rules restrict any use of the information to criminally investigate or prosecute any alcohol or drug abuse patient.[facility] CenterIn the event this information is protected by the Federal Confidentiality of Alcohol and Drug Abuse Patient Records regulations: The Federal rules restrict any use of the information to criminally investigate or prosecute any alcohol or drug abuse patient.[facility] CenterIn the event this information is protected by the Federal Confidentiality of Alcohol and Drug Abuse Patient Records regulations: The Federal rules restrict any use of the information to criminally investigate or prosecute any alcohol or drug abuse patient.[facility] CenterIn the event this information is protected by the Federal Confidentiality of Alcohol and Drug Abuse Patient Records regulations: The Federal rules restrict any use of the information to criminally investigate or prosecute any alcohol or drug abuse patient.[facility] CenterIn the event this information is protected by the Federal Confidentiality of Alcohol and Drug Abuse Patient Records regulations: The Federal rules restrict any use of the information to criminally investigate or prosecute any alcohol or drug abuse patient.[facility] CenterIn the event this information is protected by the Federal Confidentiality of Alcohol and Drug Abuse Patient Records regulations: The Federal rules restrict any use of the information to criminally investigate or prosecute any alcohol or drug abuse patient.[facility] CenterIn the event this information is protected by the Federal Confidentiality of Alcohol and Drug Abuse Patient Records regulations: The Federal rules restrict any use of the information to criminally investigate or prosecute any alcohol or drug abuse patient.[facility] CenterIn the event this information is protected by the Federal Confidentiality of Alcohol and Drug Abuse Patient Records regulations: The Federal rules restrict any use of the information to criminally investigate or prosecute any alcohol or drug abuse patient.[facility] CenterIn the event this information is protected by the Federal Confidentiality of Alcohol and Drug Abuse Patient Records regulations: The Federal rules restrict any use of the information to criminally investigate or prosecute any alcohol or drug abuse patient.[facility] CenterIn the event this information is protected by the Federal Confidentiality of Alcohol and Drug Abuse Patient Records regulations: The Federal rules restrict any use of the information to criminally investigate or prosecute any alcohol or drug abuse patient.[facility] CenterIn the event this information is protected by the Federal Confidentiality of Alcohol and Drug Abuse Patient Records regulations: The Federal rules restrict any use of the information to criminally investigate or prosecute any alcohol or drug abuse patient.[facility] CenterIn the event this information is protected by the Federal Confidentiality of Alcohol and Drug Abuse Patient Records regulations: The Federal rules restrict any use of the information to criminally investigate or prosecute any alcohol or drug abuse patient.[facility] CenterIn the event this information is protected by the Federal Confidentiality of Alcohol and Drug Abuse Patient Records regulations: The Federal rules restrict any use of the information to criminally investigate or prosecute any alcohol or drug abuse patient.[facility] CenterIn the event this information is protected by the Federal Confidentiality of Alcohol and Drug Abuse Patient Records regulations: The Federal rules restrict any use of the information to criminally investigate or prosecute any alcohol or drug abuse patient.[facility] CenterIn the event this information is protected by the Federal Confidentiality of Alcohol and Drug Abuse Patient Records regulations: The Federal rules restrict any use of the information to criminally investigate or prosecute any alcohol or drug abuse patient.[facility] CenterIn the event this information is protected by the Federal Confidentiality of Alcohol and Drug Abuse Patient Records regulations: The Federal rules restrict any use of the information to criminally investigate or prosecute any alcohol or drug abuse patient.[facility] CenterIn the event this information is protected by the Federal Confidentiality of Alcohol and Drug Abuse Patient Records regulations: The Federal rules restrict any use of the information to criminally investigate or prosecute any alcohol or drug abuse patient.[facility] CenterIn the event this information is protected by the Federal Confidentiality of Alcohol and Drug Abuse Patient Records regulations: The Federal rules restrict any use of the information to criminally investigate or prosecute any alcohol or drug abuse patient.[facility] CenterIn the event this information is protected by the Federal Confidentiality of Alcohol and Drug Abuse Patient Records regulations: The Federal rules restrict any use of the information to criminally investigate or prosecute any alcohol or drug abuse patient.[facility] CenterIn the event this information is protected by the Federal Confidentiality of Alcohol and Drug Abuse Patient Records regulations: The Federal rules restrict any use of the information to criminally investigate or prosecute any alcohol or drug abuse patient.[facility] CenterIn the event this information is protected by the Federal Confidentiality of Alcohol and Drug Abuse Patient Records regulations: The Federal rules restrict any use of the information to criminally investigate or prosecute any alcohol or drug abuse patient.[facility] CenterIn the event this information is protected by the Federal Confidentiality of Alcohol and Drug Abuse Patient Records regulations: The Federal rules restrict any use of the information to criminally investigate or prosecute any alcohol or drug abuse patient.[facility] CenterIn the event this information is protected by the Federal Confidentiality of Alcohol and Drug Abuse Patient Records regulations: The Federal rules restrict any use of the information to criminally investigate or prosecute any alcohol or drug abuse patient.[facility] CenterIn the event this information is protected by the Federal Confidentiality of Alcohol and Drug Abuse Patient Records regulations: The Federal rules restrict any use of the information to criminally investigate or prosecute any alcohol or drug abuse patient.[facility] CenterIn the event this information is protected by the Federal Confidentiality of Alcohol and Drug Abuse Patient Records regulations: The Federal rules restrict any use of the information to criminally investigate or prosecute any alcohol or drug abuse patient.[facility] CenterIn the event this information is protected by the Federal Confidentiality of Alcohol and Drug Abuse Patient Records regulations: The Federal rules restrict any use of the information to criminally investigate or prosecute any alcohol or drug abuse patient.[facility] CenterIn the event this information is protected by the Federal Confidentiality of Alcohol and Drug Abuse Patient Records regulations: The Federal rules restrict any use of the information to criminally investigate or prosecute any alcohol or drug abuse patient.[facility] CenterIn the event this information is protected by the Federal Confidentiality of Alcohol and Drug Abuse Patient Records regulations: The Federal rules restrict any use of the information to criminally investigate or prosecute any alcohol or drug abuse patient.[facility] CenterIn the event this information is protected by the Federal Confidentiality of Alcohol and Drug Abuse Patient Records regulations: The Federal rules restrict any use of the information to criminally investigate or prosecute any alcohol or drug abuse patient.[facility] CenterIn the event this information is protected by the Federal Confidentiality of Alcohol and Drug Abuse Patient Records regulations: The Federal rules restrict any use of the information to criminally investigate or prosecute any alcohol or drug abuse patient.[facility] CenterIn the event this information is protected by the Federal Confidentiality of Alcohol and Drug Abuse Patient Records regulations: The Federal rules restrict any use of the information to criminally investigate or prosecute any alcohol or drug abuse patient.[facility] CenterIn the event this information is protected by the Federal Confidentiality of Alcohol and Drug Abuse Patient Records regulations: The Federal rules restrict any use of the information to criminally investigate or prosecute any alcohol or drug abuse patient.[facility] Reason for Visit (unrecogniz ed section and content) Reason Comments PT Discharge Specialty Diagnoses / Procedures Referred By Contac t Referred To Contact PHYSICAL THERAPY Diagnoses follow ups M51.362 (ICD-10-CM) - Degeneration of intervertebral disc of lumbar region with discogenic back pain and lower extremity pain Procedures follow ups M51.362 (ICD-10-CM) - Degeneration of intervertebral disc of lumbar region with discogenic back pain and lower extremity pain Comfort Clement APRN.[facility] [address] [place] [address] Phone: tel: fax: [facility] [address] [place] [address] Phone: tel: fax: Referral ID Status Reason Start Date Expiration Date V isits Requested Visits Authorized [id number] Authorized 08/21/2024 08/20/2025 99 99 Reason Comments Refill Request Reason Comments New Patient DM2 Reason Comments Patient Request Reason Comments Medication Problem Reason Comments New Patient weight management Reason Comments New Knee Pain Reason Comments Patient Question 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 Reason Comments Clinical Update Reason Comments New Patient Reason Comments Physical Therapy Specialty Diagnoses / Procedures Referred By Hafsa t Referred To Contact PHYSICAL THERAPY Diagnoses DDD (degenerative disc disease), lumbar Lumbar radiculopathy Cervical radiculopathy Procedures PT REHAB FOLLOW UP ORDER THERAPEUTIC EXERCISES RE, EA 15 MIN. 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 Patient hot flashes, insomnia, fatigue, norris and night sweats Reason Comments Results Reason Comments Chest Congestion cough, sore throat a nd sob x 3-4 days Reason Comments Ear Problem Right ear pain, drai nage x 1 week Reason Comments left lower leg pain Fell a few months ag o-not sure if related Reason Comments Right Knee Pain Arthritis is flaring up and lower back pain with sciatica Reason Comments Patient Question Reason Comments Cough Chest congestion, ch est tightness, SOB, runny nose, sinus pressure, yellow thick phlegm x 1 week Reason Comments Pain Bilateral knee pain, low back pain from arthritis Derm Problem L 5th toe abscess x1 day, diabetes Reason Comments Cough Headache, sore throa t, fatigue x 2-3 days Reason Onset Date Comments Results 10/10/2024 Reason Onset Date Comments Results 10/14/2024 Reason Onset Date Comments Results 10/16/2024 Reason Comments Spirometry Specialty Diagnoses / Procedures Referred By Contac t Referred To Contact [facility] Diagnoses Mild intermittent asthma, uncomplicated Procedures SPIROMETRY - BASELINE AND POST DILATOR BRNCDILAT RSPSE SPMTRY PRE&POST-BRNCDILAT ADMN Comfort Clement APRN.[employer] [address] [place] [address] Phone: tel: fax: [facility] [place] [address] [place], [place] [id number] Referral ID Status Reason Start Date Expiration Date V isits Requested Visits Authorized [id number] Closed Auto-Generate d Referral 10/04/2024 08/20/2025 1 1 Specialty Diagnoses / Procedures Referred By Contac t Referred To [facility] Diagnoses Mild intermittent asthma, uncomplicated Procedures LUNG DIFFUSION CAPACITY (DLCO) DIFFUSING CAPACITY Comfort Clement APRN.[facility] [employer] [address] [place] [address] Phone: tel: fax: [facility] [address] [address] Referral ID Status Reason Start Date Expiration Date V isits Requested Visits Authorized [id number] Closed Auto-Generate d Referral 10/04/2024 08/20/2025 1 1 Specialty Diagnoses / Procedures Referred By Contac t Referred To [facility] Diagnoses Mild intermittent asthma, uncomplicated Procedures LUNG VOLUMES Comfort Clement APRN.COMMUNITY LIAISON [address] [place] [address] Phone: tel: fax: [facility] [address] [address] Referral ID Status Reason Start Date Expiration Date V isits Requested Visits Authorized [id number] Closed Auto-Generate d Referral 10/04/2024 08/20/2025 1 1 Reason Comments Establish Care Cough Productive yellow co ugh. A lot of sinus drainage, fatigue, headache. X 1 week. Went to urgent care took cough medication . [facility]sa tested for covid, flu and rsv. It was negative. concerned about ovarian canc er. is having her period requesting meloxi cam for kn ee and back pain Reason Comments Lab Orders Reason Comments Functional Capacity Eval PT Discharge Specialty Diagnoses / Procedures Referred By Contac t Referred To Contact PHYSICAL THERAPY Diagnoses Degeneration of intervertebral disc of lumbar region with discogenic back pain and lower extremity pain Primary osteoarthritis of both knees Decreased mobility Procedures CONSULT TO PHYSICAL THERAPY PHYSICAL THERAPY EVALUATION HIGH COMPLEX 45 MINS Comfort Clement, BULLET CASTING OPERATOR.[facility] [address] [place] [address] Phone: tel: fax: [facility] [address] [place] [address] Phone: tel: fax: Referral ID Status Reason Start Date Expiration Date Visits Requested Visits Authorized [id number] Authorized Auto-Generat ed Referral 08/21/2024 08/20/2025 99 99 Reason Comments Lab & Test Results Reason Comments PT Eval Specialty Diagnoses / Procedures Referred By Donnieac t Referred To Contact PHYSICAL THERAPY Diagnoses Degeneration of intervertebral disc of lumbar region with discogenic back pain and lower extremity pain Primary osteoarthritis of both knees Decreased mobility Procedures CONSULT TO PHYSICAL THERAPY PHYSICAL THERAPY EVALUATION HIGH COMPLEX 45 MINS Comfort Clement, BULLET CASTING OPERATOR.[employer] [address] [place] [address] Phone: tel: fax: [facility] [address] [place] [address] Phone: tel: fax: Referral ID Status Reason Start Date Expiration Date Visits Requested Visits Authorized [id number] Authorized Auto-Generat ed Referral 08/21/2024 08/20/2025 99 99 Reason Comments Results Labs and x-rays Reason Onset Date Comments Refill Request 12/23/2024 Reason Comments Diabetes Thyroid Problem Reason Comments No Show Pt no showed for jessica t on 02/07/25 Reason Comments Medication Question Care Teams (unrecognized sec tion and content) Cold Molding Press Operator Relationship Specialty Start Date End Date Colten Sánchezriella PCP - General Family Practice 03/01/17 Cold Molding Press Operator Relationship Specialty Start Date End Date Sánchez, Silvia PCP - General Family Practice 03/01/17 Cold Molding Press Operator Relationship Specialty Start Date End Date Sánchez, Silvia PCP - General Family Practice 03/01/17 Cold Molding Press Operator Relationship Specialty Start Date End Date Sánchez Silvia PCP - General Family Practice 03/01/17 Cold Molding Press Operator Relationship Specialty Start Date End Date Sánchez, Silvia PCP - General Family Practice 03/01/17 Cold Molding Press Operator Relationship Specialty Start Date End Date Sáncehz Silvia PCP - General Family Practice 03/01/17 Cold Molding Press Operator Relationship Specialty Start Date End Date SánchezColten kaufmanSilvia PCP - General Family Medicine 03/01/17 Cold Molding Press Operator Relationship Specialty Start Date End Date SánchezColten kaufmanSilvia PCP - General Family Medicine 03/01/17 Cold Molding Press Operator Relationship Specialty Start Date End Date Colten Sánchezriella PCP - General Family Medicine 03/01/17 Cold Molding Press Operator Relationship Specialty Start Date End Date SánchezColten kaufmanSilvia PCP - General Family Medicine 03/01/17 Cold Molding Press Operator Relationship Specialty Start Date End Date SánchezColtenSilvia PCP - General Family Medicine 03/01/17 Cold Molding Press Operator Relationship Specialty Start Date End Date Comfort Clement BULLET CASTING OPERATOR.[facility] [address] [place] [address] PCP - General Family Medicine 10/02/24 Cold Molding Press Operator Relationship Specialty Start Date End Date Comfort Clement BULLET CASTING OPERATOR.[facility] [address] [place] [address] PCP - General Family Medicine 10/02/24 Cold Molding Press Operator Relationship Specialty Start Date End Date Comfort Clement BULLET CASTING OPERATOR.[facility] [address] [place] [address] PCP - General Family Medicine 10/02/24 Cold Molding Press Operator Relationship Specialty Start Date End Date Comfort Clement, BULLET CASTING OPERATOR.[facility] [address] [place] [address] PCP - General Family Medicine 10/02/24 Cold Molding Press Operator Relationship Specialty Start Date End Date Comfort Clement BULLET CASTING OPERATOR.[facility] [address] [place] [address] PCP - General Family Medicine 10/02/24 Cold Molding Press Operator Relationship Specialty Start Date End Date Comfort Clement, BULLET CASTING OPERATOR.[facility] [address] [place] [address] PCP - General Family Medicine 10/02/24 Cold Molding Press Operator Relationship Specialty Start Date End Date Comfort Clement BULLET CASTING OPERATOR.[facility] [address] [place] [address] PCP - General Family Medicine 10/02/24 Cold Molding Press Operator Relationship Specialty Start Date End Date Comfort Clement BULLET CASTING OPERATOR.[facility] [address] [place] [address] PCP - General Family Medicine 10/02/24 Cold Molding Press Operator Relationship Specialty Start Date End Date Comfort Clement BULLET CASTING OPERATOR.[facility] [address] [place] [address] PCP - General Family Medicine 10/02/24 Cold Molding Press Operator Relationship Specialty Start Date End Date Comfort Clement BULLET CASTING OPERATOR.[facility] [address] [place] [address] PCP - General Family Medicine 10/02/24 Cold Molding Press Operator Relationship Specialty Start Date End Date Comfort Clement BULLET CASTING OPERATOR.[facility] [address] [place] [address] PCP - General Family Medicine 10/02/24 Cold Molding Press Operator Relationship Specialty Start Date End Date Comfort Clement BULLET CASTING OPERATOR.[facility] [address] [place] [address] PCP - General Family Medicine 10/02/24 Team Status: Active Member Role Status Dates No Primary Care Physician Primary Care Provider Active Team Status: Inactive Member Role Status Dates No Primary Care Physician Primary Care Provider Active Start: December 12, 2024 End: December 12, 2024 Dr. Tha Causey , DO Emergency Provider Active Start: December 12, 2024 End: December 12, 2024 Cold Molding Press Operator Relationship Specialty Start Date End Date Comfort Clement BULLET CASTING OPERATOR.[employer] [employer] [address] [place] [address] PCP - General Family Medicine 10/02/24 Cold Molding Press Operator Relationship Specialty Start Date End Date Comfort Clement, BULLET CASTING OPERATOR.[facility] [address] [place], [place] [id number] PCP - General Family Medicine 10/02/24 Cold Molding Press Operator Relationship Specialty Start Date End Date Comfort Clement, BULLET CASTING OPERATOR.[employer] [address] [place], [place] [id number] PCP - General Family Medicine 10/02/24 Cold Molding Press Operator Relationship Specialty Start Date End Date Comfort Clement BULLET CASTING OPERATOR.[employer] [address] [place], [place] [id number] PCP - General Family Medicine 10/02/24 Team Status: Inactive Member Role Status Dates No Primary Care Physician Primary Care Provider Active Start: December 12, 2024 End: December 12, 2024 Dr. Tha Causey DO Attending Provider Active Start: December 12, 2024 End: December 12, 2024 Dr. Tha Causey DO Emergency Provider Active Start: December 12, 2024 End: December 12, 2024 Team Status: Inactive Member Role Status Dates No Primary Care Physician Primary Care Provider Active Start: January 31, 2025 End: January 31, 2025 No Primary Care Physician Referring Provider Active Start: January 31, 2025 End: January 31, 2025 VENTURA Muller Attending Provider Active Sta rt: January 31, 2025 End: January 31, 2025 Cold Molding Press Operator Relationship Specialty Start Date End Date Comfort Clement, BULLET CASTING OPERATOR.[employer] [address] [place], [place] [id number] PCP - General Family Medicine 10/02/24 Team Status: Active Member Role/Relationship Status Dates No Primary Care Physician Primary Care Provider Active Team Status: Inactive Member Role/Relationship Status Dates No Primary Care Physician Primary Care Provider Active Start: December 12, 2024 End: December 12, 2024 Dr. Tha Causey DO Attending Provider Active Start: December 12, 2024 End: December 12, 2024 Dr. Tha Causey DO Emergency Provider Active Start: December 12, 2024 End: December 12, 2024 Team Status: Inactive Member Role/Relationship Status Dates No Primary Care Physician Primary Care Provider Active Start: January 31, 2025 End: January 31, 2025 No Primary Care Physician Referring Provider Active Start: January 31, 2025 End: January 31, 2025 Gael WHITEHEAD PA Attending Provider Active Sta rt: January 31, 2025 End: January 31, 2025 Team Status: Active Member Role/Relationship Status Dates No Primary Care Physician Primary Care Provider Active Start: February 19, 2025 No Primary Care Physician Referring Provider Active Start: February 19, 2025 Dr. Tony Champion DO Attending Provider Active Start: February 19, 2025 Team Status: Inactive Member Role/Relationship Status Dates No Primary Care Physician Primary Care Provider Active Start: February 19, 2025 End: February 19, 2025 Dr. Diony Benton MD Attending Provider Active S tart: February 19, 2025 End: February 19, 2025 Team Status: Inactive Member Role/Relationship Status Dates No Primary Care Physician Primary Care Provider Active Start: February 19, 2025 End: February 19, 2025 No Primary Care Physician Referring Provider Active Start: February 19, 2025 End: February 19, 2025 Dr. Tony Champion DO Attending Provider Active Start: February 19, 2025 End: February 19, 2025 Team Status: Active Member Role/Relationship Status Dates Comfort Clement NP, PROCESSING ARCHIVIST-C Primary Care Provider Active Team Status: Inactive Member Role/Relationship Status Dates Dr. Richy Contreras MD Emergency Provider Active Sta rt: April 04, 2025 End: April 04, 2025 Comfort Clement NP, PROCESSING ARCHIVIST-C Primary Care Provider Active Start: April 04, 2025 End: April 04, 2025 Goals (unrecognized section and content) Goals may be documented in a n alternate section FOR RECORDS PERTAINING TO PATIENTS WHO ARE OR HAVE BEEN ENROLLED IN A CHEMICAL DEPENDENCY/SUBSTANCEABUSE PROGRAM, SOME INFORMATION MAY BE OMITTED. This clinical summary was aggregated from multiple sources. Caution should be exercised in using it in the provision of clinical care. This summary normalizes information from multiple sources, and as a consequence, information in this document may materially change the coding, format and clinical context of patient data. In addition, data may be omitted in some cases. CLINICAL DECISIONS SHOULD BE BASED ON THE PRIMARY CLINICAL RECORDS. [employer] [facility] provides no warranty or guarantee of the accuracy or completeness of information in this document.
== END 2025-04-04 16:14 | disposition home or self-care (01) ==
PROVIDERS: Emergency Provider Emergency Medicine; PCP Nurse Practitioner Family; Visit Provider Emergency Medicine
DX: T67.5XXA Heat exhaustion, unspecified, initial encounter (principal); E66.01 Morbid (severe) obesity due to excess calories; Z68.43 Body mass index [BMI] 50.0-59.9, adult; E11.9 Type 2 diabetes mellitus without complications; R11.2 Nausea with vomiting, unspecified; E78.00 Pure hypercholesterolemia, unspecified; X30.XXXA Exposure to excessive natural heat, initial encounter; Z59.00 Homelessness unspecified; R19.7 Diarrhea, unspecified; E86.0 Dehydration; Z87.891 Personal history of nicotine dependence; E03.9 Hypothyroidism, unspecified; Z79.890 Hormone replacement therapy; Z79.84 Long term (current) use of oral hypoglycemic drugs; Z79.899 Other long term (current) drug therapy; Z90.49 Acquired absence of other specified parts of digestive tract
CPT/HCPCS: 80048; 81002; 96361; 96374; 99285; A4216; J2405